=== PATIENT | male | born 1955 | race Caucasian/White ===

== ENCOUNTER 2018-01-28 04:04 | Emergency (ER) | payer MEDICARE, SELFPAY ==
[2018-01-28 04:05] VITALS: BP 144/80; PULSE 77; RESP 18; TEMP 36.5; O2SAT 99; BMI 36.4
--- NOTE | 2018-01-28 04:29 | CT_ITS ---
STUDY: CT ABDOMEN AND PELVIS WITH CONTRAST REASON FOR EXAM: Male, 62 years old. Right lower quadrant pain since 0200 hours. RADIATION DOSAGE (If Supplied By Facility): CTDIvol = ( 18.61 ) mGy, DLP = ( 1159.97 ) mGycm TECHNIQUE: Transaxial images were obtained from the dome of the diaphragm to the symphysis pubis without oral contrast. 100ML ml of Isovue 300 contrast was administered. Sagittal and coronal images were reconstructed. Individualized dose optimization techniques were used for this CT. COMPARISON: CT scan pelvis 06/10/2013. FINDINGS: There is mild atelectasis in the visualized lung bases. The visualized portions of the heart are within normal limits. Normal liver. Normal gallbladder and extrahepatic biliary system. Normal spleen. Normal pancreas. Normal bilateral adrenal glands. There is a 3 mm nonobstructive right renal calculus. There is a 3.1 cm right mid renal cortical cyst. There is no demonstrated ureteral calculus or hydronephrosis. There is a 3 mm nonobstructive left lower pole renal calculus. There is a small left lower pole renal cortical cyst. There is no demonstrated ureteral calculus or hydronephrosis. There is mild chronic bilateral perinephric fat infiltration, a common nonspecific finding, which may be due to previous inflammation. Normal visualized stomach. Normal small intestine. There are a few colonic diverticula consistent with diverticulosis. The appendix is visualized on axial images 71-79 and it appears normal.. Normal abdominal aorta. Normal inferior vena cava. Normal retroperitoneum. Normal urinary bladder. The prostate is mildly enlarged. There is a small umbilical hernia which contains fat, but no bowel. There are multilevel degenerative changes of the visualized lumbar spine. CT/Abdomen/Pelvis W IV Cont ONLY IMPRESSION: Small nonobstructive renal calculi. Small renal cysts. No demonstrated ureteral calculi or hydronephrosis. Mildly enlarged prostate. Mild colonic diverticulosis, without evidence for acute diverticulitis. No evidence for acute pathology. Normal appendix. Electronically Signed: Joss Roberts MD at 5:56 EDT , Service support ,
--- NOTE | 2018-01-28 04:34 | ED.DCSUM_ITS ---
- ER Visit Summary Date of Service: 01/28/18 Chief Complaint: [] Right lower quadrant abdominal pain History of Present Illness: The patient is a 62 M [] complaining of right lower quadrant abdominal pain beginning 2 hours ago that awoke him from sleep. Denies nausea/vomiting. Denies fevers. Does report significant pain with ambulation. Does not report a history of previous pain like this. Does report a previous history of diverticulitis on the opposite side. He reports no previous abdominal surgeries. Physical Examination: [] Afebrile, vital signs stable. 62-year-old male no acute distress. Conversational. Cardiovascular exam is regular rate and rhythm. Lungs are clear to auscultation. Abdomen is soft with right lower quadrant tenderness on exam. No guarding or rebound. No significant lower extremity edema. Test Results: [] CBC, CMP: Normal. CT abdomen/pelvis with IV contrast: Negative. Emergency Department Course and Treatment: [] The patient received intravenous fluids and morphine. On serial exam had improvement of symptoms. Patient counseled regarding diagnostic and laboratory findings. Patient encouraged to follow-up with PCP or GI physician. Treatment Plan: [] Follow-up with PCP. Disposition: [] Discharge, stable. Impression: [] Abdominal pain, unknown etiology This note was generated with [employer] dictation software. It may contain incorrect words, spelling, and punctuation that were not noted in review of the chart prior to signing ED Disposition - Plan for ED Patient: Chief Complaint: Abd Pain Referrals: Gabriel Kay MD [Primary Care Provider] -
[2018-01-28 04:38] LABS: Absolute Neutrophil Count 7.1 X10^3/uL (2.0-7.7); Basophil# 0.01 X10^3/uL; Basophil% 0.1 % (0-1); Eosinophil# 0.14 X10^3/uL; Eosinophils% 1.5 % (0-5); Hematocrit 46.3 % (40-54); Hemoglobin 15.1 g/dl (13.0-16.5); Lymphocyte % 16.9 % (19-41); Mean Corp Hgb Conc 32.6 g/gl (32-36); Mean Corpuscular Hgb 28.8 pg (27.0-32.0); Mean Corpuscular Volume 88.2 fL (80-94); Mean Platelet Vol. 9.8 fl (6.2-12.0); Monocyte% 6.3 % (0-10); Neutrophil # 7.11 X10^3/uL (2.7-7.7); Platelet Count 212 K/mm3 (150-450); RBC Distribution Width CV 14.4 % (11.6-14.6); RBC Distribution Width SD 46.3 fl (35.1-43.9); Red Blood Count 5.25 M/mm3 (4.6-6.2); White Blood Count 9.5 K/mm3 (4.4-11.0)
[2018-01-28] MEDS: 0.9% Normal Saline 1,000 ML 1000 ML IV (04:44)
--- NOTE | 2018-01-28 04:44 | NURSING ---
PT REFUSED MORPHINE BUT WILL KEEP IN HAND IN CASE HE CHANGES HIS MIND.
[2018-01-28 05:01] LABS: ALB/GLOB Ratio 0.8 RATIO (0.9-2.4); AST(SGOT) 18 U/L (15-37); Alanine Aminotransfer ALT/SGPT 34 U/L (16-61); Albumin, Serum 3.4 g/dL (3.2-5.0); Alkaline Phosphatase 77 U/L (45-117); Anion Gap 7 (5-15); BUN 24 mg/dL (7-18); BUN/Creat Ratio 21.8 RATIO (10-20); Calcium,Total 8.8 mg/dL (8.5-10.1); Chloride 106 mmol/L (98-107); EST Glomerular Filtration Rate 72 mL/min (>60); Est Glom Filt Rate - Afr Amer 87 mL/min (>60); Estimated Creatinine Clearance 62.83 ml/min; Globulin 4.1 g/dL (2.2-4.2); Glucose 111 mg/dL (74-106); Potassium 3.7 mmol/L (3.5-5.1); Protein, Total 7.5 g/dL (6.4-8.2); Sodium Level 142 mmol/L (136-145)
[2018-01-28 05:17] LABS: POSITIVE COUNT NO; POSITIVE DIFFERENTIAL NO; POSITIVE MORPHOLOGY NO
[2018-01-28 06:23] VITALS: PULSE 87; RESP 16; O2SAT 97
--- NOTE | 2018-01-28 06:44 | ED.DEP ---
ED Disposition - Plan for ED Patient: Disposition: Home or Assisted Living Chief Complaint: Abd Pain Instructions: ED Abdominal Pain Unkn Cause Referrals: Gabriel Kay MD [Primary Care Provider] -
[2018-01-28 06:52] VITALS: BP 112/74; PULSE 71; RESP 18; O2SAT 95
== END 2018-01-28 06:53 | disposition home or self-care (01) ==
PROVIDERS: Emergency Provider Emergency Medicine; Family Provider Family Medicine; PCP Family Medicine
DX: R10.31 Right lower quadrant pain (principal); E66.9 Obesity, unspecified; G47.33 Obstructive sleep apnea (adult) (pediatric); G25.81 Restless legs syndrome; Z79.899 Other long term (current) drug therapy
CPT/HCPCS: 74177; 80053; 85025; 96360; 96361; 99283; J7030; Q9967; A4216

== ENCOUNTER → 2018-09-18 09:22 | Outpatient (CLI) | payer MEDICARE, SELFPAY ==
[2018-09-18 10:45] LABS: Absolute Lymphocyte Count 1.17 X10^3/ul (0.83-4.51); Absolute Neutrophil Count 3.8 X10^3/uL (2.0-7.7); Basophil# 0.01 X10^3/uL; Basophil% 0.2 % (0-1); Eosinophil# 0.08 X10^3/uL; Eosinophils% 1.5 % (0-5); Hemoglobin 15.4 g/dl (13.0-16.5); Lymphocyte # 1.17 X10^3/ul (4.0); Lymphocyte % 21.6 % (19-41); Mean Corp Hgb Conc 33.5 g/gl (32-36); Mean Corpuscular Hgb 28.7 pg (27.0-32.0); Mean Corpuscular Volume 85.7 fL (80-94); Mean Platelet Vol. 10.5 fl (6.2-12.0); Monocyte% 7.4 % (0-10); Neutrophil # 3.75 X10^3/uL (2.7-7.7); Neutrophil % 69.1 % (47-70); Platelet Count 204 K/mm3 (150-450); RBC Distribution Width SD 47.2 fl (35.1-43.9); Red Blood Count 5.37 M/mm3 (4.6-6.2); White Blood Count 5.4 K/mm3 (4.4-11.0)
[2018-09-18 10:47] LABS: POSITIVE COUNT NO; POSITIVE DIFFERENTIAL NO; POSITIVE MORPHOLOGY NO
[2018-09-18 11:27] LABS: Microalbumin,Random Urine < 5.0 mg/L (NO RANGE EST.)
[2018-09-18 11:36] LABS: ALB/GLOB Ratio 0.9 RATIO (0.9-2.4); AST(SGOT) 17 U/L (15-37); Alanine Aminotransfer ALT/SGPT 44 U/L (16-61); Albumin, Serum 3.5 g/dL (3.2-5.0); Alkaline Phosphatase 77 U/L (45-117); Anion Gap 8 (5-15); BUN 24 mg/dL (7-18); BUN/Creat Ratio 21.8 RATIO (10-20); Calcium,Total 8.4 mg/dL (8.5-10.1); Chloride 109 mmol/L (98-107); EST Glomerular Filtration Rate 72 mL/min (>60); Est Glom Filt Rate - Afr Amer 87 mL/min (>60); Ferritin 112 ng/mL (26-388); Globulin 3.9 g/dL (2.2-4.2); Glucose 98 mg/dL (74-106); Potassium 3.9 mmol/L (3.5-5.1); Protein, Total 7.4 g/dL (6.4-8.2); Sodium Level 143 mmol/L (136-145); Thyroid Stim Hormone (TSH) 1.02 uIU/mL (0.358-3.74)
--- OUTSIDE RECORDS SUMMARY | 2018-11-04 05:32 | XMS RPT_ITS | Clinical Summary ---
:1955 Author Organization [facility], [facility] Address [address] [place] [address] Phone Care Team Providers Name Role Phone Raul Palacios MD Unavailable Conditions or Problems Problem Name Problem Onset Status Entry Provider Comment Standard Annotate Code Date Date Description Abdominal pain 80178889 Active Raul Farmer Abdominal pain (SNOMED 05/24 05/[address]) Myalgia 46740177 Active Raul Farmer Muscle pain (SNOMED 05/24 05/[address]) Pes planus, 96968219 Active Raul Farmer Congenital pes congenital (SNOMED 05/24 05/[address]) De Quervain's 85767784 Active Raul Farmer Radial styloid disease (SNOMED 05/24 05/[address]) Internal 36945637 Active Raul Farmer Internal hemorrhoids, (SNOMED 05/24 05/[address]) complication Carcinoma in 80040944 Active Raul Farmer 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 05/[address]) Esophageal 23124169 Active Raul Farmer Stricture of stricture (SNOMED 05/24 05/[address]) Fibromyalgia 29963321 Active Raul Farmer Fibromyositis (SNOMED 05/24 05/[address]) Meralgia 47583335 Active Raul Farmer Meralgia paresthetica, (SNOMED 05/24 05/[address]) Sleep apnea 59958932 Active Raul Farmer Sleep apnea (SNOMED 05/24 05/[address]) Hypertension 84651517 Active Raul Farmer Hypertensive (SNOMED 05/24 05/[address]) Arthropathy of 096881374 Active Raul Farmer Arthropathy of lumbar facet (SNOMED 05/24 05/[address] [place] [address]) joint Lymphedema 125266494 Active Raul Farmer Lymphedema (SNOMED 05/24 05/[address]) Claustrophobia 97016668 Active Raul Farmer Claustrophobia (SNOMED 05/24 05/[address]) Dysphagia 31339363 Active Raul Farmer Dysphagia (SNOMED 05/24 05/[address]) Diverticulitis 457197231 Active Raul Farmer Diverticulitis (SNOMED 05/24 05/[address]) Cellulitis 949933856 Active Raul Farmer Cellulitis (SNOMED 05/24 05/[address]) Hyperlipidemia 82681794 Active Raul Farmer Hyperlipidemia (SNOMED 05/24 05/[address]) Testicular 27082001 Active Raul Farmer Benign neoplasm mass, benign (SNOMED 05/24 05/[address]) Abdominal wall 343343104 Active Raul Farmer Abdominal wall pain (SNOMED 05/24 05/[address]) Restless leg 66268395 Active Raul Farmer Restless legs syndrome (SNOMED 05/24 05/[address]) Acoustic nerve 27190647 Active Raul Farmer Primary cancer, 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 Low 289667021 Active Raul Farmer Decreased testosterone (SNOMED 05/24 05/[address]) level Raynaud's 991157307 Active Raul Farmer Raynaud's phenomenon (SNOMED 05/24 05/[address]) Swelling of 736454818 Active Raul Farmer Swelling of bilateral legs (SNOMED 05/24 05/[address]) Medications Medication Instructions Start Stop Generic Name NDC Provider Date Date DONNA 227.1 take as / PEG [id number] Raul Farmer GM SOLR directed 17 [id number] Suzanne LOPEZ L-NASULF GABAPENTIN 300 One tablet by / GABAPENTIN 41177783271 Raul Farmer MG CAPS mouth daily 17 Suzanne LOPEZ FUROSEMIDE 40 One tablet by / FUROSEMIDE 85305472428 Raul Farmer MG TABS mouth three 17 Suzanne LOPEZ times daily ANASTROZOLE 1 One tablet by / ANASTROZOLE 92404638463 Raul Farmer MG TABS mouth daily 17 Suzanne LOPEZ POTASSIUM One tablet by / POTASSIUM CHLORIDE 52942531762 Raul Farmer CHLORIDE ER 8 mouth daily 17 Suzanne LOPEZ MEQ CR-TABS [facility] FISH OIL One tablet by / OMEGA-3 FATTY 25438297022 Raul Farmer CAPS mouth daily 17 ACIDS CAPS Suzanne LOPEZ CHELATED One tablet by / MAGNESIUM TABS 90069196308 Raul Farmer MAGNESIUM TABS mouth daily 17 Suzanne LOPEZ L-ARGININE HCL One tablet by / ARGININE HCL 34234151425 Raul Farmer POWD mouth daily 17 Suzanne LOPEZ LYSINE TABS One tablet by / LYSINE TABS 06453167624 Raul Farmer mouth daily 17 Suzanne LOPEZ CHONDROITIN One tablet by / CHONDROITIN 07402528592 Raul Farmer SULFATE CAPS mouth daily 17 SULFATE A TG Palacios MD [facility] GLUCOSAMINE One tablet by / GLUCOSAMINE 38353405315 Raul Farmer SULFATE CAPS mouth daily 17 SULFATE CAPS Suzanne LOPEZ ALPHA-LIPOIC One tablet by / ALPHA-LIPOIC ACID 65398610254 Raul Farmer ACID 100 MG mouth daily 17 Suzanne LOPEZ CAPS B-12 5000 MCG One tablet by / CYANOCOBALAMIN 93255569096 Raul Farmer CAPS mouth daily 17 Suzanne LOPEZ VITAMIN D3 1000 One tablet by / CHOLECALCIFEROL 33153440851 Raul Farmer UNIT CAPS mouth daily 17 Suzanne LOPEZ [facility] PROBIOTIC / PROBIOTIC PRODUCT [id number] Raul Farmer CAPS 17 Suzanne LOPEZ MULTIVITAMIN One tablet by / MULTIPLE 49500418824 Raul Farmer ADULT TABS mouth daily 17 VITAMINS-MINERALS Suzanne LOPEZ Medications Administered No information available. Allergies, Adverse Reactions, Alerts Allergy Name Reaction Description Start Date Severity Status Provider ASPIRIN Moderate Active Raul Palacios MD SULFASALAZINE Mild Active Raul Palacios MD PENICILLIN V POTASSIUM Moderate Active Raul Palacios MD Results Date Name Value Unit Range Flag Description Office Visit FALLRSKASSES No Fall risk assessment MEDS REVIEW Done Documentation of current medications (procedure) COLONOSCOPY Normal Colonoscopy (procedure) ORALTOBACUSE Never Tobacco smoking status NHIS SMOK STATUS Never smoker Tobacco use [facility] Plan of Care Type Date Detail Pending order Colonoscopy Procedures No information available. Vital Signs Date Name Value Unit Description BMI (Body Mass Index) 36.38 kg/m2 Body Mass Index [Ratio] Body Temperature 97.6 [degF] temperature E&M Body Temperature 36.44 Quiana temperature in centigrade E&M BP Diastolic 84 mm[Hg] blood pressure, diastolic - 8462-4 BP Systolic 136 mm[Hg] blood pressure, systolic - 8480-6 Heart Rate 64 /min pulse rate E&M - 8867-4 Height 66 [in_us] height E&M - 8302-2 Height 167.64 cm height in centimeters E&M Respiratory Rate 18 /min respiratory rate E&M - 9279-1 Weight Measured 225.4 [lb_av] weight E&M - 3141-9 Weight Measured 102.24 kg weight in kilograms E&M
--- OUTSIDE RECORDS SUMMARY | 2018-11-04 05:32 | XMS RPT_ITS ---
:1955 Author Organization OHIP Care Team Providers Name Role Phone Gabriel Kay Attending Unavailable Gabriel Kay Primary Care Unavailable Gabriel Kay Primary Care Unavailable Jake Diana Attending Unavailable PROBLEMS PROBLEMS No Problem Records FoundPROCEDURES PROCEDURES No Procedure Records FoundRESULTS RESULTS CBC W/DIFF, AUTOMATED Collected: 09/18/2018 Status: F Source: [place] 9:23 AM REPOSITORY TYPE CODE TESTS RESULT OUT OF RANGE REFERENCE UNITS LAB L100.1000 4.4-11.0 K/mm3 Normal WBC 5.4 LAB L100.1200 4.6-6.2 M/mm3 Normal RBC 5.37 LAB L100.1300 13.0-16.5 g/dl Normal HGB 15.4 LAB L100.1400 40-54 % Normal HCT 46.0 LAB L100.1500 80-94 fL Normal MCV 85.7 LAB L100.1600 27.0-32.0 pg Normal MCH 28.7 LAB L100.1700 32-36 g/gl Normal MCHC 33.5 LAB L100.1810 11.6-14.6 % High RDW CV 15.0 LAB L100.1820 35.1-43.9 fl High RDW SD 47.2 LAB L100.1900 150-450 K/mm3 Normal PLT 204 LAB L100.2000 6.2-12.0 fl Normal MPV 10.5 LAB L100.2100 47-70 % Normal NEUT% 69.1 LAB L100.2200 19-41 % Normal LY% 21.6 LAB L100.2300 0-10 % Normal MONO% 7.4 LAB L100.2400 0-5 % Normal EO% 1.5 LAB L100.2500 0-1 % Normal BASO% 0.2 LAB L100.2550 0.0-0.9 % Normal IM GRAN % 0.200 Result Comment: IG% - Immature Granulocytes (promyelocytes, myelocytes and metamyelocytes) > 1% indicates that a LEFT SHIFT is Present. LAB L100.2620 2.0-7.7 X10 3/uL Normal Absolute Neut 3.8 LAB L100.2720 0.83-4.51 X10 3/ul Normal Absolute Lymph 1.17 Performed By: #### L100.0100 #### [facility] [address] [facility]. [place], [place], [address] MICROALB:CREAT Collected: 09/18/2018 Status: F Source: [facility] UR 9:23 AM REPOSITORY TYPE CODE TESTS RESULT OUT OF RANGE REFERENCE UNITS LAB L501.1200 NO RANGE EST. mg/dL 39.70 Normal UR CREAT LAB L502.0500 NO RANGE EST. mg/L < 5.0 Normal MICROALBUMI N,UR LAB L502.0600 <30 mg/g CRE mg/g CRE Test Normal not performed MALB:CREAT Performed By: #### L502.0250 #### [facility] [address] [facility]. [place], [place], [id number] COMPREHENSIVE METABOLIC Collected: 09/18/2018 Status: F Source: [facility] 9:23 AM REPOSITORY TYPE CODE TESTS RESULT OUT OF RANGE REFERENCE UNITS LAB L501.0100 74-106 mg/dL Normal GLU 98 Result Comment: Please note revised GLUCOSE reference range effective 2017. LAB L501.1000 7-18 mg/dL High BUN 24 LAB L501.1100 0.70-1.30 mg/dL Normal CREAT,SERUM 1.10 Result Comment: The validity of the calculated GFR AND GFRAA in patients over 70 years has not been determined. Clinical correlation is essential. LAB L501.1110 >60 mL/min Normal EST GFR 72 Result Comment: Non- GFR Calc LAB L501.1115 >60 mL/min Normal EST GFR - AA 87 Result Comment: GFR Calc LAB L501.1300 10-20 RATIO High BUN/CRE 21.8 LAB L501.1500 6.4-8.2 g/dL T Normal PROT 7.4 LAB L501.1800 3.2-5.0 g/dL Normal ALB 3.5 LAB L501.1950 2.2-4.2 g/dL Normal GLOB 3.9 LAB L501.2000 0.9-2.4 RATIO Normal A/G 0.9 LAB L501.2200 8.5-10.1 mg/dL Low CA 8.4 LAB L501.4100 15-37 U/L Normal AST 17 LAB L501.4305 45-117 U/L Normal ALK P 77 LAB L501.4405 16-61 U/L Normal ALT 44 LAB L501.4600 0.20-1.00 mg/dL T Normal BILI 0.50 LAB L501.5300 136-145 mmol/L NA Normal 143 LAB L501.5600 3.5-5.1 mmol/L K Normal 3.9 LAB L501.5900 98-107 mmol/L High CL 109 LAB L501.6100 21.0-32.0 mmol/L Normal CO2 26.0 LAB L501.6200 5-15 Normal GAP 8 Performed By: #### L500.4050, L501.9520, L503.6550 #### [facility] [address] [place] [address], [id number] THYROID STIM HORMONE Collected: 09/18/2018 Status: F Source: [place] ([facility]) 9:23 AM REPOSITORY TYPE CODE TESTS RESULT OUT OF RANGE REFERENCE UNITS LAB L501.9520 0.358-3.74 uIU/mL Normal TSH 1.02 Performed By: #### L500.4050, L501.9520, L503.6550 #### [facility] [address] [place], [place], [id number] FERRITIN Collected: 09/18/2018 Status: F Source: [place] 9:23 AM REPOSITORY TYPE CODE TESTS RESULT OUT OF RANGE REFERENCE UNITS LAB L503.6550 26-388 ng/mL Normal FERRITIN 112 Performed By: #### L500.4050, L501.9520, L503.6550 #### [facility] [address] [place], [address] EMERGENCY DEPARTMENT Observed: 01/28/2018 Status: F Source: [place] SUMMARY 7:12 AM REPOSITORY [facility] Medical Records Department [address] [place] [address] Emergency Department Summary 01/28/18 0430 MR#: [id number] Acct: [id number] Name: BALTAZAR GREY Rep #: [id number] : 1955 62 From: Jake Diana DO PCP: Gabriel Kay MD Status: DEP ER - ER Visit Summary Date of Service: 01/28/18 Chief Complaint: [] Right lower quadrant abdominal pain History of Present Illness: The patient is a 62 M [] complaining of right lower quadrant abdominal pain beginning 2 hours ago that awoke him from sleep. Denies nausea/vomiting. Denies fevers. Does report significant pain with ambulation. Does not report a history of previous pain like this. Does report a previous history of diverticulitis on the opposite side. He reports no previous abdominal surgeries. Physical Examination: [] Afebrile, vital signs stable. 62-year-old male no acute distress. Conversational. Cardiovascular exam is regular rate and rhythm. Lungs are clear to auscultation. Abdomen is soft with right lower quadrant tenderness on exam. No guarding or rebound. No significant lower extremity edema. Test Results: [] CBC, CMP: Normal. CT abdomen/pelvis with IV contrast: Negative. Emergency Department Course and Treatment: [] The patient received intravenous fluids and morphine. On serial exam had improvement of symptoms. Patient counseled regarding diagnostic and laboratory findings. Patient encouraged to follow-up with PCP or GI physician. Treatment Plan: [] Follow-up with PCP. Disposition: [] Discharge, stable. Impression: [] Abdominal pain, unknown etiology This note was generated with [employer] software. It may contain incorrect words, spelling, and punctuation that were not noted in review of the chart prior to signing ED Disposition - Plan for ED Patient: Chief Complaint: Abd Pain Referrals: Gabriel Kay MD [Primary Care Provider] - What to do if you have Problems For any increased pain, shortness of breath, bleeding, nausea or vomiting, chest pain, or any unexpected problems, contact your Primary Care Provider. Call [facility] ([phone]) or report to the closest Emergency Room. Call 911 if necessary. 01/28/18 0712 <Electronically signed by Jake Diana DO> Date Jake Diana DO Cosigner Signature (If Indicated): Date CC: Gabriel Kay MD DISCHARGE INSTRUCTION Observed: 01/28/2018 Status: F Source: [place] 6:44 [facility] REPOSITORY [facility] Medical Records Department [address] [place] [address] Discharge Instruction 01/28/1844 MR#: [id number] Acct: [id number] Name: BALTAZAR GREY Rep #: [id number] : 1955 62 From: Jake Diana DO PCP: Gabriel Kay MD Status: REG ER ED Disposition - Plan for ED Patient: Disposition: Home or Assisted Living Chief Complaint: Abd Pain Instructions: ED Abdominal Pain Unkn Cause Referrals: Gabriel Kay MD [Primary Care Provider] - What to do if you have Problems For any increased pain, shortness of breath, bleeding, nausea or vomiting, chest pain, or any unexpected problems, contact your Primary Care Provider. Call [facility] ([phone]) or report to the closest Emergency Room. Call 911 if necessary. 01/28/1844 <Electronically signed by Jake Diana DO> Date Jake Diana DO Cosigner Signature (If Indicated): Date CC: Gabriel Kay MD ABDOMEN/PELVIS W IV CONT Observed: 01/28/2018 Status: F Source: [place] ONLY 4:30 AM REPOSITORY [facility] Imaging Services [address] [address] Abdomen/Pelvis W IV Cont ONLY MR#: [id number] Acct: [id number] Name: BALTAZAR GREY Rep #: [id number] : 1955 M 62 From: Joss Roberts MD PCP: Gabriel Kay MD Status: REG ER Study: Abdomen/Pelvis W IV Cont ONLY Date of Exam: 01/28/18 Exam# [id number] Ordering Dr: Jake Diana DO STUDY: CT ABDOMEN AND PELVIS WITH CONTRAST REASON FOR EXAM: Male, 62 years old. Right lower quadrant pain since 0200 hours. RADIATION DOSAGE (If Supplied By Facility): CTDIvol = ( 18.61 ) mGy, DLP = ( 1159.97 ) mGycm TECHNIQUE: Transaxial images were obtained from the dome of the diaphragm to the symphysis pubis without oral contrast. 100ML ml of Isovue 300 contrast was administered. Sagittal and coronal images were reconstructed. Individualized dose optimization techniques were used for this CT. COMPARISON: CT scan pelvis 06/10/2013. FINDINGS: There is mild atelectasis in the visualized lung bases. The visualized portions of the heart are within normal limits. Normal liver. Normal gallbladder and extrahepatic biliary system. Normal spleen. Normal pancreas. Normal bilateral adrenal glands. There is a 3 mm nonobstructive right renal calculus. There is a 3.1 cm right mid renal cortical cyst. There is no demonstrated ureteral calculus or hydronephrosis. There is a 3 mm nonobstructive left lower pole renal calculus. There is a small left lower pole renal cortical cyst. There is no demonstrated ureteral calculus or hydronephrosis. There is mild chronic bilateral perinephric fat infiltration, a common nonspecific finding, which may be due to previous inflammation. Normal visualized stomach. Normal small intestine. There are a few colonic diverticula consistent with diverticulosis. The appendix is visualized on axial images 71-79 and it appears normal.. Normal abdominal aorta. Normal inferior vena cava. Normal retroperitoneum. Normal urinary bladder. The prostate is mildly enlarged. There is a small umbilical hernia which contains fat, but no bowel. There are multilevel degenerative changes of the visualized lumbar spine. CT/Abdomen/Pelvis W IV Cont ONLY IMPRESSION: Small nonobstructive renal calculi. Small renal cysts. No demonstrated ureteral calculi or hydronephrosis. Mildly enlarged prostate. Mild colonic diverticulosis, without evidence for acute diverticulitis. No evidence for acute pathology. Normal appendix. Electronically Signed: Joss Roberts MD at 5:56 EDT , Service support , CC: Gabriel Kay MD; Jake Diana DO Sharepoint Designer Developer: Signed COMPREHENSIVE METABOLIC Collected: 01/28/2018 Status: F Source: [place] 4:15 AM REPOSITORY TYPE CODE TESTS RESULT OUT OF RANGE REFERENCE UNITS LAB L501.0100 74-106 mg/dL High GLU 111 Result Comment: Fasting Glucose result from 100 to 125 mg/dL suggests IMPAIRED HOMEOSTASIS per A.D.A. criteria. Please note revised GLUCOSE reference range effective 2017. LAB L501.1000 7-18 mg/dL High BUN 24 LAB L501.1100 0.70-1.30 mg/dL Normal CREAT,SERUM 1.10 Result Comment: The validity of the calculated GFR AND GFRAA in patients over 70 years has not been determined. Clinical correlation is essential. LAB L501.1110 >60 mL/min Normal EST GFR 72 Result Comment: Non- GFR Calc LAB L501.1115 >60 mL/min Normal EST GFR - AA 87 Result Comment: GFR Calc LAB L501.1255 ml/min Normal Estimated CRCL 62.83 LAB L501.1300 10-20 RATIO High BUN/CRE 21.8 LAB L501.1500 6.4-8. g/dL Normal 2 T PROT 7.5 LAB L501.1800 3.2-5. g/dL Normal 0 ALB 3.4 LAB L501.1950 2.2-4. g/dL Normal 2 GLOB 4.1 LAB L501.2000 0.9-2. RATIO Low 4 A/G 0.8 LAB L501.2200 8.5-10 mg/dL Normal .1 CA 8.8 LAB L501.4100 15-37 U/L Normal AST 18 LAB L501.4305 45-117 U/L Normal ALK P 77 LAB L501.4405 16-61 U/L Normal ALT 34 LAB L501.4600 0.20-1 mg/dL Normal .00 T BILI 0.40 LAB L501.5300 136-14 mmol/L Normal 5 NA 142 LAB L501.5600 3.5-5. mmol/L Normal 1 K 3.7 LAB L501.5900 98-107 mmol/L Normal CL 106 LAB L501.6100 21.0-3 mmol/L Normal 2.0 CO2 29.0 LAB L501.6200 5-15 Normal GAP 7 Performed By: #### L500.4050 #### [facility] [address] [facility] [place], [place], [id number] CBC W/DIFF, AUTOMATED Collected: 01/28/2018 Status: F Source: [place] 4:15 AM REPOSITORY TYPE CODE TESTS RESULT OUT OF RANGE REFERENCE UNITS LAB L100.1000 4.4-11.0 K/mm3 Normal WBC 9.5 LAB L100.1200 4.6-6.2 M/mm3 Normal RBC 5.25 LAB L100.1300 13.0-16.5 g/dl Normal HGB 15.1 LAB L100.1400 40-54 % Normal HCT 46.3 LAB L100.1500 80-94 fL Normal MCV 88.2 LAB L100.1600 27.0-32.0 pg Normal MCH 28.8 LAB L100.1700 32-36 g/gl Normal MCHC 32.6 LAB L100.1810 11.6-14.6 % Normal RDW CV 14.4 LAB L100.1820 35.1-43.9 fl High RDW SD 46.3 LAB L100.1900 150-450 K/mm3 Normal PLT 212 LAB L100.2000 6.2-12.0 fl Normal MPV 9.8 LAB L100.2100 47-70 % High NEUT% 75.0 LAB L100.2200 19-41 % Low LY% 16.9 LAB L100.2300 0-10 % Normal MONO% 6.3 LAB L100.2400 0-5 % Normal EO% 1.5 LAB L100.2500 0-1 % Normal BASO% 0.1 LAB L100.2550 0.0-0.9 % Normal IM GRAN % 0.200 Result Comment: IG% - Immature Granulocytes (promyelocytes, myelocytes and metamyelocytes) > 1% indicates that a LEFT SHIFT is Present. LAB L100.2620 2.0-7.7 X10 3/uL Normal Absolute Neut 7.1 LAB L100.2720 0.83-4.51 X10 3/ul Normal Absolute Lymph 1.60 Performed By: #### L100.0100 #### [facility] [address] [place], [place], [address] ALLERGIES ALLERGIES DATE TYPE / CODE NAME / CODE REACTION SEVERITY SOURCE 01/28/2018 Drug Penicillins/F Unknown Unknown [facility] Allergy/4160 [id number](RXN Hospital 36074(SNOMED ORM) Repository CT) 01/28/2018 Drug Sulfa MIGRAINES Unknown [facility] Allergy/4160 (Sulfonamide Hospital 67645(SNOMED Antibiotics)/ Repository CT) [id number](RX NORM) 01/28/2018 Drug aspirin/F0060 Hives Unknown [facility] Allergy/4160 73571(RXNORM) Hospital 99810(SNOMED Repository CT) ENCOUNTERS ENCOUNTERS ADMIT/DISCHARGE ACCOUNT ADMITTING ENCOUNTER LOCATION SOURCE NUMBER CLASS 09/18/2018 [id number] Ambulatory [facility] 2 [facility] ing:MFPLAB Repository 01/28/2018/ [id number] Emergency [facility] 8 0 [facility] ing:ED Repository PAYERS PAYERS ENCOUNTER GUARANTOR PAYER SUBSCRIBER SOURCE 09/18/2018 BALTAZAR Alejandre [id number] HOZALMAECDOB: [facility] [place] *[place] [facility] [id number] Number: Repository [address]Kvq: 330 [id number] [phone] (HP) Date:[id number] CLAIMS [address] [place] [phone]: 09/18/2018 Secondary NOT GIVENUNK [place] Insurance:SELF PAY [facility] Number: Effective Repository Date:2018-09-18 01/28/2018 BALTAZAR Alejandre Primary BALTAZAR Lawson [id number] Insurance:[facility] HOVANECDOB: Community [place] *IN [facility] [id number] Number: Repository [address]Yad: [id number] [phone] Date:[id number] 2 (HP) CLAIMS [address] [address]KQ: 01/28/2018 Secondary NOT GIVENUNK [place] Insurance:SELF PAY [facility] Number: Effective Repository Date:2018-01-28
--- OUTSIDE RECORDS SUMMARY | 2018-11-04 05:32 | XMS RPT_ITS | Clinical Summary ---
:1955 Author Organization [facility], [facility] Address [address] [place] [address] Phone Care Team Providers Name Role Phone Maura Linn Unavailable Unavailable Conditions or Problems Problem Name Problem Onset Status Entry Provider Comment Standard Annotate Code Date Date Description Abdominal pain 57381007 Active Raul Farmer Abdominal pain (SNOMED 05/24 05/[address]) Myalgia 39993837 Active Raul Farmer Muscle pain (SNOMED 05/24 05/[address] [place] [address]) Pes planus, 23287667 Active Raul Farmer Congenital pes congenital (SNOMED 05/24 05/[address]) De Quervain's 20728432 Active Raul Farmer Radial styloid disease (SNOMED 05/24 05/[address] [place] [address]) Internal 77685499 Active Raul Farmer Internal hemorrhoids, (SNOMED 05/24 05/[address]) complication Carcinoma in 46307422 Active Raul Farmer 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 05/24 [place] situ of larynx CT) Esophageal 65943447 Active Raul Farmer Stricture of stricture (SNOMED 05/24 05/[address]) Fibromyalgia 17013318 Active Raul Farmer Fibromyositis (SNOMED 05/24 05/[address]) Meralgia 15727386 Active Raul Farmer Meralgia paresthetica, (SNOMED 05/24 05/24 [place] paresthetica left CT) Sleep apnea 61612924 Active Raul Farmer Sleep apnea (SNOMED 05/24 05/[address]) Hypertension 99148016 Active Raul Farmer Hypertensive (SNOMED 05/24 05/[address]) Arthropathy of 159923943 Active Raul Farmer Arthropathy of lumbar facet (SNOMED 05/24 05/[address] [place] [address]) joint Lymphedema 009605911 Active Raul Farmer Lymphedema (SNOMED 05/24 05/[address] [place] [address]) Claustrophobia 47312470 Active Raul Farmer Claustrophobia (SNOMED 05/24 05/[address] [place] [address]) Dysphagia 42301220 Active Raul Farmer Dysphagia (SNOMED 05/24 05/[address] [place] [address]) Diverticulitis 220770289 Active Raul Farmer Diverticulitis (SNOMED 05/24 05/[address]) Cellulitis 872442073 Active Raul Farmer Cellulitis (SNOMED 05/24 05/[address]) Hyperlipidemia 34883736 Active Raul Farmer Hyperlipidemia (SNOMED 05/24 05/[address]) Testicular 56257101 Active Raul Farmer Benign neoplasm mass, benign (SNOMED 05/24 05/24 [place] [address] testis [address]) Abdominal wall 268880593 Active Raul Farmer Abdominal wall pain (SNOMED 05/24 05/[address]) Restless leg 21700620 Active Raul Farmer Restless legs syndrome (SNOMED 05/24 05/[address] [place] [address]) Acoustic nerve 76920325 Active Raul Farmer Primary cancer, 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 Low 589101284 Active Raul Farmer Decreased testosterone (SNOMED 05/24 05/[address]) level Raynaud's 923972200 Active Raul P Raynaud's phenomenon (SNOMED 05/24 05/[address] [place] [address]) Swelling of 287408043 Active Raul Farmer Swelling of bilateral legs (SNOMED 05/24 05/[address] [place] [address]) Medications Medication Instructions Start Stop Generic Name NDC Provider Date Date DONNA 227.1 take as / PEG [id number] Raul Farmer GM SOLR directed 17 [id number]-[id number]-YKPCL-NAC Suzanne LOPEZ L-NASULF GABAPENTIN 300 One tablet by / GABAPENTIN 67055472736 Raul Farmer MG CAPS mouth daily 17 Suzanne LOPEZ FUROSEMIDE 40 One tablet by / FUROSEMIDE 60865054555 Raul Farmer MG TABS mouth three 17 Suzanne LOPEZ times daily ANASTROZOLE 1 One tablet by / ANASTROZOLE 82138198680 Raul Farmer MG TABS mouth daily 17 Suzanne LOPEZ POTASSIUM One tablet by / POTASSIUM CHLORIDE 43468857887 Raul Farmer CHLORIDE ER 8 mouth daily 17 Suzanne LOPEZ MEQ CR-TABS [facility] FISH OIL One tablet by / OMEGA-3 FATTY 20955544372 Raul Farmer CAPS mouth daily 17 ACIDS CAPS Suzanne LOPEZ CHELATED One tablet by / MAGNESIUM TABS 82693548380 Raul Farmer MAGNESIUM TABS mouth daily 17 Suzanne LOPEZ L-ARGININE HCL One tablet by / ARGININE HCL 82413840173 Raul Faremr POWD mouth daily 17 Suzanne LOPEZ LYSINE TABS One tablet by / LYSINE TABS 91462015052 Raul Farmer mouth daily 17 Suzanne LOPEZ CHONDROITIN One tablet by / CHONDROITIN 68993225897 Raul Farmer SULFATE CAPS mouth daily 17 SULFATE A TG [place] MD [facility] GLUCOSAMINE One tablet by / GLUCOSAMINE 67765678530 Raul Farmer SULFATE CAPS mouth daily 17 SULFATE CAPS Suzanne LOPEZ ALPHA-LIPOIC One tablet by / ALPHA-LIPOIC ACID 47177225969 Raul Farmer ACID 100 MG mouth daily 17 Suzanne LOPEZ CAPS B-12 5000 MCG One tablet by / CYANOCOBALAMIN 60905129013 Raul Farmer CAPS mouth daily 17 Suzanne LOPEZ VITAMIN D3 1000 One tablet by / CHOLECALCIFEROL 28441220163 Ralu Farmer UNIT CAPS mouth daily 17 Suzanne LOPEZ [facility] PROBIOTIC / PROBIOTIC PRODUCT 85991145382 Raul Farmer CAPS 17 Suzanne LOPEZ MULTIVITAMIN One tablet by / MULTIPLE 24222833748 Raul Farmer ADULT TABS mouth daily 17 [...] NHIS SMOK STATUS Never smoker Tobacco use [facility] Plan of Care Type Date Detail Appointment 10:00 AM Raul Palacios MD, [address] [place] [address], [address], [place], [address], Pending order Colonoscopy Procedures No information available. [...]
== END ==
PROVIDERS: Family Provider Family Medicine; PCP Family Medicine; Visit Provider Family Medicine
DX: M79.89 Other specified soft tissue disorders (principal); G25.81 Restless legs syndrome
CPT/HCPCS: 36415; 80053; 82043; 82570; 82728; 84443; 85025

== ENCOUNTER → 2019-05-29 | Outpatient (CLI) | payer MEDICARE, SELFPAY ==
[2019-05-29 18:16] LABS: Anion Gap 7 (5-15); BUN 20 mg/dL (7-18); BUN/Creat Ratio 17.4 RATIO (10-20); Chloride 105 mmol/L (98-107); Creatinine, Serum 1.15 mg/dL (0.70-1.30); EST Glomerular Filtration Rate 68 mL/min (>60); Est Glom Filt Rate - Afr Amer 83 mL/min (>60); Glucose 86 mg/dL (74-106); Magnesium 2.3 mg/dL (1.6-2.6); Sodium Level 140 mmol/L (136-145)
== END | disposition home or self-care (01) ==
LOC: MFPLAB 16:41
PROVIDERS: Family Provider Family Medicine; PCP Family Medicine; Referring Provider Family Medicine; Visit Provider Family Medicine
DX: M79.89 Other specified soft tissue disorders (principal)
CPT/HCPCS: 36415; 80048; 83735

== ENCOUNTER → 2019-12-03 10:39 | Outpatient (CLI) | payer OTHER, SELFPAY ==
[2019-12-03 12:20] LABS: Absolute Neutrophil Count 3.3 X10^3/uL (2.0-7.7); Basophil# 0.03 X10^3/uL; Basophil% 0.6 % (0-1); Eosinophil# 0.16 X10^3/uL; Eosinophils% 3.1 % (0-5); Hematocrit 46.3 % (40-54); Hemoglobin 14.6 g/dL (13.0-16.5); Lymphocyte % 25.2 % (19-41); Mean Corp Hgb Conc 31.5 g/dL (32-36); Mean Corpuscular Hgb 27.3 pg (27.0-32.0); Mean Corpuscular Volume 86.7 fL (80-94); Mean Platelet Vol. 10.4 fl (6.2-12.0); Monocyte# 0.38 X10^3/uL; Monocyte% 7.4 % (0-10); NRBC Flagged by Analyzer 0 % (0-5); Neutrophil # 3.28 X10^3/uL (2.7-7.7); Neutrophil % 63.5 % (47-70); Platelet Count 218 K/mm3 (150-450); RBC Distribution Width CV 15.4 % (11.6-14.6); Red Blood Count 5.34 M/mm3 (4.6-6.2); White Blood Count 5.2 K/mm3 (4.4-11.0)
[2019-12-03 13:09] LABS: ALB/GLOB Ratio 0.8 RATIO (0.9-2.4); AST(SGOT) 19 U/L (15-37); Alanine Aminotransfer ALT/SGPT 45 U/L (16-61); Albumin, Serum 3.3 g/dL (3.2-5.0); Alkaline Phosphatase 71 U/L (45-117); Anion Gap 3 (5-15); BUN 23 mg/dL (7-18); BUN/Creat Ratio 20.7 RATIO (10-20); Chloride 113 mmol/L (98-107); Cholesterol 200 mg/dL (200); Creatinine, Serum 1.11 mg/dL (0.70-1.30); EST Glomerular Filtration Rate 71 mL/min (>60); Est Glom Filt Rate - Afr Amer 86 mL/min (>60); Ferritin 99 ng/mL (26-388); Globulin 4.2 g/dL (2.2-4.2); Glucose 90 mg/dL (74-106); High Density Lipoprotein 52 mg/dL; Magnesium 2.6 mg/dL (1.6-2.6); PSA,Total- Diagnostic 2.34 ng/mL (0.0-4.0); Potassium 4.2 mmol/L (3.5-5.1); Protein, Total 7.5 g/dL (6.4-8.2); Sodium Level 143 mmol/L (136-145); Triglycerides 126 mg/dL; Very Low Density Lipoprotein 25 mg/dL (5-40)
== END ==
PROVIDERS: PCP Family Medicine; Referring Provider Family Medicine; Visit Provider Family Medicine
DX: Z00.00 Encounter for general adult medical examination without abnormal findings (principal); G25.81 Restless legs syndrome; R97.20 Elevated prostate specific antigen [PSA]; E66.1 Drug-induced obesity
CPT/HCPCS: 36415; 80053; 80061; 82728; 83735; 84153; 85025

== ENCOUNTER → 2020-05-31 14:02 | Outpatient (CLI) | payer OTHER, SELFPAY ==
[2020-05-31 16:00] LABS: Absolute Neutrophil Count 3.9 X10^3/uL (2.0-7.7); Basophil# 0.03 X10^3/uL; Basophil% 0.5 % (0-1); Eosinophil# 0.12 X10^3/uL; Eosinophils% 1.9 % (0-5); Hematocrit 45.9 % (40-54); Hemoglobin 14.4 g/dL (13.0-16.5); Lymphocyte % 24.4 % (19-41); Mean Corp Hgb Conc 31.4 g/dL (32-36); Mean Corpuscular Hgb 27.2 pg (27.0-32.0); Mean Corpuscular Volume 86.6 fL (80-94); Mean Platelet Vol. 10.7 fl (6.2-12.0); Monocyte# 0.55 X10^3/uL; Monocyte% 8.9 % (0-10); NRBC Flagged by Analyzer 0 % (0-5); Neutrophil # 3.92 X10^3/uL (2.7-7.7); Neutrophil % 63.7 % (47-70); Platelet Count 242 K/mm3 (150-450); RBC Distribution Width SD 47.8 fl (35.1-43.9); White Blood Count 6.2 K/mm3 (4.4-11.0)
[2020-05-31 16:28] LABS: ALB/GLOB Ratio 0.8 RATIO (0.9-2.4); AST(SGOT) 14 U/L (15-37); Alanine Aminotransfer ALT/SGPT 34 U/L (16-61); Albumin, Serum 3.4 g/dL (3.2-5.0); Alkaline Phosphatase 70 U/L (45-117); Anion Gap 4 (5-15); BUN 19 mg/dL (7-18); BUN/Creat Ratio 17.3 RATIO (10-20); Calcium,Total 8.9 mg/dL (8.5-10.1); Chloride 109 mmol/L (98-107); EST Glomerular Filtration Rate 72 mL/min (>60); Est Glom Filt Rate - Afr Amer 87 mL/min (>60); Globulin 4.2 g/dL (2.2-4.2); Glucose 100 mg/dL (74-106); Magnesium 2.4 mg/dL (1.6-2.6); Potassium 3.8 mmol/L (3.5-5.1); Protein, Total 7.6 g/dL (6.4-8.2); Sodium Level 141 mmol/L (136-145)
== END ==
PROVIDERS: PCP Family Medicine; Referring Provider Family Medicine; Visit Provider Family Medicine
DX: G25.81 Restless legs syndrome (principal); M79.89 Other specified soft tissue disorders
CPT/HCPCS: 36415; 80053; 83735; 85025

== ENCOUNTER → 2020-08-02 14:10 | Outpatient (CLI) | payer OTHER, SELFPAY ==
--- NOTE | 2020-08-02 14:13 | CT_ITS ---
STUDY: CT MAXILLOFACIAL SINUSES REASON FOR EXAM: Male, 64 years old. SINUSITIS, HEADACHES X2 MONTHS -- HX-ACOUSTIC SCHWANNOMA RIGHT INTERNAL AUDITORY CANAL RADIATION DOSAGE (If Supplied By Facility): CTDIvol = ( 33.45 ) mGy, DLP = ( 805.64 ) mGycm TECHNIQUE: The patient was scanned in a multi detector CT scanner. High resolution axial imaging was performed without the administration of intravenous contrast material. Sagittal and coronal images were reconstructed. Individualized dose optimization techniques were used for this CT. COMPARISON: None. FINDINGS: Status post right temporal resection for right acoustic schwannoma. FRONTAL SINUSES: Normal aeration, without mucosal inflammatory disease. ETHMOIDAL SINUSES: Mucosal thickening of the ethmoid sinuses bilaterally. MAXILLARY SINUSES: Normal aeration, without mucosal inflammatory disease. SPHENOIDAL SINUSES: Mucosal thickening of the sphenoid sinus is worse on the left side. There is patency of the bilateral maxillary infundibuli with normal uncinate processes, ethmoid bullae, and hiatus semilunaris. Normal bilateral middle turbinates. There is hypertrophy of the right inferior nasal turbinate. There is a left sided nasal septal deviation with a left sided nasal septal spur. There is patency of the bilateral nasal airways. The visualized osseous structures are normal. The visualized bilateral orbital contents are normal. CT/Sinus/Facial Bone IMPRESSION: Mucosal thickening of the ethmoid sinuses bilaterally as well as the sphenoid sinuses. Status post resection of a right-sided schwannoma of the right internal auditory canal.. Electronically Signed: Unruly Last, at 15:40 EDT , Service support ,
== END ==
PROVIDERS: PCP Family Medicine; Referring Provider Family Medicine; Visit Provider Family Medicine
DX: J30.9 Allergic rhinitis, unspecified (principal)
CPT/HCPCS: 70486

== ENCOUNTER → 2020-09-04 11:40 | Outpatient (CLI) | payer OTHER, SELFPAY | PROVIDERS: PCP Family Medicine; Referring Provider Family Medicine; Visit Provider Family Medicine | DX: R19.7 Diarrhea, unspecified (principal) | CPT/HCPCS: 83986; 87493; 87506 ==

== ENCOUNTER 2020-12-21 17:03 | Outpatient (RCR) | payer MEDICARE, OTHER, SELFPAY ==
[2020-12-21] MEDS: COVID-19 VACC, MRNA(PFIZER)/PF 30 MCG/0.3 ML SYRINGE IM (08:33)
[2021-01-11] MEDS: COVID-19 VACC, MRNA(PFIZER)/PF 30 MCG/0.3 ML SYRINGE IM (08:31)
== END 2021-03-15 23:59 ==
LOC: IMMUN 17:03
PROVIDERS: PCP Family Medicine; Referring Provider Family Medicine; Visit Provider Family Medicine
DX: Z23 Encounter for immunization (principal)
CPT/HCPCS: 0001A; 0002A; 91300

== ENCOUNTER → 2021-01-31 15:38 | Outpatient (CLI) | payer MEDICARE, OTHER, SELFPAY ==
--- NOTE | 2021-01-31 15:44 | RAD_ITS ---
STUDY: X-RAY - LUMBAR SPINE REASON FOR EXAM: Male, 65 years old. SACROILIAC DYSFUNCTION TECHNIQUE: 5 view(s) of the lumbar spine were obtained. COMPARISON: None FINDINGS: There is straightening of the normal lumbar lordosis. There is multilevel endplate spondylosis of the lumbar vertebrae. There is multi-level degenerative disc disease with multi-level disc space narrowing. The soft tissue structures are unremarkable. RAD/L/S Spine Min 4 Views IMPRESSION: Degenerative changes of the spine. Electronically Signed: Ana Michaud MD at 9:03 EDT Tel , Service support ,
== END ==
PROVIDERS: PCP Family Medicine; Referring Provider Family Medicine; Visit Provider Family Medicine
DX: M53.3 Sacrococcygeal disorders, not elsewhere classified (principal)
CPT/HCPCS: 72110

== ENCOUNTER → 2021-02-01 09:34 | Outpatient (CLI) | payer MEDICARE, OTHER, SELFPAY ==
[2021-02-01 13:07] LABS: ALB/GLOB Ratio 0.7 RATIO (0.9-2.4); AST(SGOT) 20 U/L (15-37); Alanine Aminotransfer ALT/SGPT 49 U/L (16-61); Albumin, Serum 3.2 g/dL (3.2-5.0); Alkaline Phosphatase 75 U/L (45-117); Anion Gap 5 (5-15); BUN 22 mg/dL (7-18); BUN/Creat Ratio 19.3 RATIO (10-20); Chloride 108 mmol/L (98-107); Cholesterol 206 mg/dL (200); Creatinine, Serum 1.14 mg/dL (0.70-1.30); EST Glomerular Filtration Rate 69 mL/min (>60); Est Glom Filt Rate - Afr Amer 83 mL/min (>60); Globulin 4.5 g/dL (2.2-4.2); Glucose 107 mg/dL (74-106); High Density Lipoprotein 51 mg/dL; PSA,Total- Diagnostic 2.84 ng/mL (0.0-4.0); Protein, Total 7.7 g/dL (6.4-8.2); Sodium Level 139 mmol/L (136-145); Triglycerides 143 mg/dL; Very Low Density Lipoprotein 29 mg/dL (5-40)
[2021-02-01 13:41] LABS: Hepatitis C Antibody Non-Reactive (Nonreactive)
== END ==
PROVIDERS: PCP Family Medicine; Referring Provider Family Medicine; Visit Provider Family Medicine
DX: E66.01 Morbid (severe) obesity due to excess calories (principal); R97.20 Elevated prostate specific antigen [PSA]; Z11.59 Encounter for screening for other viral diseases
CPT/HCPCS: 36415; 80053; 80061; 84153; 86803

== ENCOUNTER 2021-08-19 15:00 | Outpatient (RCR) | payer MEDICARE, OTHER, SELFPAY ==
--- NOTE | 2021-08-15 13:51 | HP.PTEVAL_ITS ---
Patient's Visit Information BALTAZAR GREY is a 65 year old M referred to Physical Therapy by Dr. Gabriel Kay MD with a diagnosis of SI dysfunction. Date of Evaluation: 08/15/21 Physical Therapist: Nida Guevara - Visit Plan Frequency: 2x /Week Duration: 4 Weeks Plan: Stretching of HS, piriformis, hip flexors. Progressive core strengthening exercises for increased pelvic/lumbar stability. - Subjective Pt moved in Nov 2019 and noticed right low back pain after lifting heavy box. Pain persisted for 2-3 months then seemed to get better. Recently though, he has noticed with lifting or increased activity it gives him trouble again. Sleeping is difficult (wakes every 1-2 hrs to reposition), as he cannot find a comfortable position. Pt usually sleeps on the left side. Pt has support belt that he uses when walking that he says helps. Pt reports driving does not bother him. The transitions from sit to stand or walking on uneven terrain (up or down hill), is when he notices the pain. Pt has a history of DDD and arthritis. Pt also has restless leg syndrome, for which he takes gabapentin. Reports that for several years, after standing in place for a long time, he notices stabbing pain/N&T on top of L thigh. Denies N&T otherwise. Pain: currently, 1/10 (sitting), reports pain gets to 0/10 in sitting(works sitting at a computer. At worst, pain is 5-6/10, lifting, bending/twisting, carrying something in front of him. - Pain R PSIS Pain Intensity (Out of 10): 1 Pain Intensity Range: 0, 6 - Objective ROM: Trunk: Forward flexion limited by HS length, minimal extension with pain at end range, R>L sidebend (painful L SB), L=R rotation (pain at EROM B). LEs: SLR ~45 degrees B (restricted by HS tightness), pain over R PSIS with PROM R hip, otherwise WNL. MMT: LLE: grossly 5/5. RLE: hip flexion/abd 4/5, knee f/e 5/5, poor core strength. GAIT: Normal pattern, no discrepancy noted. No leg length discrepancy, Tenderness to palpation over R PSIS, no pain with sacral distraction, pain with sacral compression (tested in supine over ASIS), pain with attempted bridging. - Balance/Special Test Scores Oswestry Low Back Score: 12 - Goals Goal 1:: Pt to be I with HEP Goal Time Frame: 2-4 Weeks Goal 2:: Pt to report being able to sleep at least 4 hrs without waking due to pain. Goal Time Frame: 4-6 Weeks Goal 3:: Pt to improve SLR by at least 15 degrees bilaterally to allow for greater ROM of hip flexion Goal Time Frame: 4-6 Weeks Goal 4:: Pt to be able to ambulate at least one mile with gentle incline/decline without SIJ pain. Goal Time Frame: 4-6 Weeks - Rehabilitation Potential Physical Therapy Diagnosis: Pt presents with s/s consistent with SI dysfunction. Limited ROM, strength, and activity tolerance leads to decreased participation in ADLs. Pt would benefit from skilled physical therapy to increase stabilizatio n of SIJ. Rehabilitation Potential: Good - Anticipated Interventions Patient/Client Instruction: Educate patient on: Condition, Plan of Care Therapeutic Exercise to Include: Strength training, Endurance training, Body mechanics, Postural training, Flexibilty training, Dynamic Lumbar Stabilization For the Purpose of:: To decrease pain, To increase ROM, To increase tolerance to activity/condition/position, To improve ability of physical actions for home/community/work/leisure, To decrease soft tissue restriction, To increase flexibility/ROM Thank you for the opportunity to evaluate your patient. For Medicare and Medicare HMO plans, please review the plan of care and approve it. It will need to be FAXED BACK to us at [phone] for Medicare purposes. For Medicare only, by signing this I certify the plan of care. Please let me know if there are questions or concerns regarding this plan of care. Physician Signature: Date:
== END 2021-08-19 19:00 | disposition home or self-care (01) ==
LOC: PT 15:00
PROVIDERS: PCP Family Medicine; Referring Provider Family Medicine; Visit Provider Family Medicine
DX: M53.3 Sacrococcygeal disorders, not elsewhere classified (principal)
CPT/HCPCS: 97110; 97161

== ENCOUNTER 2021-11-15 09:12 | Outpatient (CLI) | payer MEDICARE, OTHER, SELFPAY ==
[2021-11-15 10:11] LABS: Absolute Lymphocyte Count 1.41 X10^3/uL (0.83-4.51); Absolute Neutrophil Count 3.4 X10^3/uL (2.0-7.7); Basophil# 0.03 X10^3/uL; Basophil% 0.6 % (0-1); Eosinophil# 0.11 X10^3/uL; Hematocrit 45.2 % (40-54); Hemoglobin 14.5 g/dL (13.0-16.5); Lymphocyte # 1.41 X10^3/ul (0.83-4.51); Mean Corp Hgb Conc 32.1 g/dL (32-36); Mean Corpuscular Hgb 27.5 pg (27.0-32.0); Mean Corpuscular Volume 85.8 fL (80-94); Monocyte# 0.45 X10^3/uL; Monocyte% 8.3 % (0-10); NRBC Flagged by Analyzer 0 % (0-5); Neutrophil % 62.7 % (47-70); Platelet Count 225 K/mm3 (150-450); RBC Distribution Width CV 15.6 % (11.6-14.6); Red Blood Count 5.27 M/mm3 (4.6-6.2); White Blood Count 5.4 K/mm3 (4.4-11.0)
[2021-11-15 10:50] LABS: BUN 21 mg/dL (7-18); Creatinine, Serum 1.09 mg/dL (0.70-1.30); EST Glomerular Filtration Rate 72 mL/min (>60); Glucose 107 mg/dL (74-106)
[2021-11-15 10:51] LABS: ALB/GLOB Ratio 0.8 RATIO (0.9-2.4); AST(SGOT) 23 U/L (15-37); Alanine Aminotransfer ALT/SGPT 55 U/L (16-61); Albumin, Serum 3.4 g/dL (3.2-5.0); Alkaline Phosphatase 81 U/L (45-117); Anion Gap 9 (5-15); BUN/Creat Ratio 19.3 RATIO (10-20); Calcium,Total 8.7 mg/dL (8.5-10.1); Chloride 108 mmol/L (98-107); Est Glom Filt Rate - Afr Amer 87 mL/min (>60); Ferritin 137 ng/mL (26-388); Globulin 4.2 g/dL (2.2-4.2); Potassium 4.2 mmol/L (3.5-5.1); Protein, Total 7.6 g/dL (6.4-8.2); Sodium Level 141 mmol/L (136-145)
[2021-11-16 13:19] LABS: MG Sendout 2.7 mg/dL (1.6-2.3)
== END 2021-11-15 23:59 | disposition home or self-care (01) ==
LOC: MFPLAB 09:16
PROVIDERS: PCP Family Medicine; Referring Provider Family Medicine; Visit Provider Family Medicine
DX: R51.9 Headache, unspecified (principal); G25.81 Restless legs syndrome; D64.9 Anemia, unspecified
CPT/HCPCS: 36415; 80053; 82728; 83735; 85025

== ENCOUNTER → 2023-02-07 | Outpatient (CLI) | payer MEDICARE, OTHER, SELFPAY ==
[2023-02-07 12:45] LABS: ALB/GLOB Ratio 0.7 RATIO (0.9-2.4); AST(SGOT) 22 U/L (15-37); Alanine Aminotransfer ALT/SGPT 43 U/L (16-61); Albumin, Serum 3.2 g/dL (3.2-5.0); Alkaline Phosphatase 81 U/L (45-117); Anion Gap 6 (5-15); BUN 23 mg/dL (7-18); BUN/Creat Ratio 19.8 RATIO (10-20); Calcium,Total 9.2 mg/dL (8.5-10.1); Chloride 108 mmol/L (98-107); Creatinine, Serum 1.16 mg/dL (0.70-1.30); EST Glomerular Filtration Rate 67 mL/min (>60); Est Glom Filt Rate - Afr Amer 81 mL/min (>60); Globulin 4.5 g/dL (2.2-4.2); Glucose 101 mg/dL (74-106); Magnesium 2.4 mg/dL (1.6-2.6); Potassium 3.9 mmol/L (3.5-5.1); Protein, Total 7.7 g/dL (6.4-8.2); Sodium Level 141 mmol/L (136-145)
[2023-02-09 16:41] LABS: CRP 9.13 mg/L (0.0-3.0)
[2023-03-12 15:41] LABS: Anion Gap 1 (5-15); BUN 28 mg/dL (7-18); BUN/Creat Ratio 21.9 RATIO (10-20); Calcium,Total 9.5 mg/dL (8.5-10.1); Chloride 99 mmol/L (98-107); Creatinine, Serum 1.28 mg/dL (0.70-1.30); EST Glomerular Filtration Rate 60 mL/min (>60); Est Glom Filt Rate - Afr Amer 72 mL/min (>60); Glucose 126 mg/dL (74-106); Sodium Level 134 mmol/L (136-145)
== END | disposition home or self-care (01) ==
LOC: MFPLAB 11:18
PROVIDERS: PCP Family Medicine; Visit Provider Family Medicine
DX: K57.92 Diverticulitis of intestine, part unspecified, without perforation or abscess without bleeding (principal); E87.6 Hypokalemia
CPT/HCPCS: 36415; 80048; 80053; 83735; 86140

== ENCOUNTER → 2023-02-23 | Outpatient (CLI) | payer MEDICARE, OTHER, SELFPAY ==
[2023-02-23 18:33] LABS: Osmolality, Serum 298 mOsm/KG (280-301)
[2023-02-23 18:47] LABS: ALB/GLOB Ratio 0.7 RATIO (0.9-2.4); AST(SGOT) 28 U/L (15-37); Alanine Aminotransfer ALT/SGPT 45 U/L (16-61); Albumin, Serum 3.4 g/dL (3.2-5.0); Alkaline Phosphatase 81 U/L (45-117); Anion Gap 6 (5-15); BUN 29 mg/dL (7-18); Calcium,Total 9.7 mg/dL (8.5-10.1); Chloride 98 mmol/L (98-107); Creatinine, Serum 1.26 mg/dL (0.70-1.30); EST Glomerular Filtration Rate 61 mL/min (>60); Est Glom Filt Rate - Afr Amer 73 mL/min (>60); Globulin 4.8 g/dL (2.2-4.2); Glucose 129 mg/dL (74-106); Magnesium 2.2 mg/dL (1.6-2.6); Potassium 2.9 mmol/L (3.5-5.1); Protein, Total 8.2 g/dL (6.4-8.2); Sodium Level 138 mmol/L (136-145)
== END | disposition home or self-care (01) ==
LOC: MFPLAB 16:45
PROVIDERS: PCP Family Medicine; Visit Provider Family Medicine
DX: M79.89 Other specified soft tissue disorders (principal)
CPT/HCPCS: 36415; 80053; 83735; 83930

== ENCOUNTER → 2023-03-01 | Outpatient (CLI) | payer MEDICARE, OTHER, SELFPAY ==
--- NOTE | 2023-03-01 13:51 | ART_ITS ---
Reason For Study: Claudication Procedure A bilateral lower extremity continuous wave Doppler with analog waveform analysis,segmental pressures,and ankle brachial indexes with exercise. Left Segmental Pressures Left brachial= 134mmHg. Left posterior tibial artery = 160mmHg. Left dorsalis pedis artery = 141mmHg. Left digit = 123 mmHg. The left dorsalis pedis waveforms are triphasic. The left posterior tibial artery waveforms are triphasic. Right Segmental Pressures Right brachial= 127mmHg. Right posterior tibial artery = 169mmHg. Right dorsalis pedis artery = 151mmHg. Right digit = 133 mmHg. The right dorsalis pedis waveforms are triphasic. The right posterior tibial artery waveforms are triphasic. Indices The right ankle brachial index by the dorsalis pedis is 1.13. The right ankle brachial index by the posterior tibial artery is 1.26. The right digital-brachial index is 0.99. The right post exercise ankle brachial index is 1.06. The left ankle brachial index by the dorsalis pedis is 1.05. The left ankle brachial index by the posterior tibial artery is 1.19. The left digital-brachial index is 0.92. The left post exercise ankle brachial index is 1.06. VL/Lower Ext Art Exam w/ Exercise Interpretation Summary The right posterior tibial and dorsalis pedis ankle-brachial indices at rest ar e normal at 1.26 and 1.13 respectively with normal triphasic Doppler waveforms. The post exercise ri ght ankle-brachial index is abnormal based upon the amount of post exercise decline at 1.06. Clini bob correlation however would be appropriate. The right digital brachial index at rest is myriam l at 0.99 The left lower extremity posterior tibialis and dorsalis pedis ankle-brachial i ndices at rest are 1.19 and 1.05 with normal triphasic Doppler waveforms. The left ankle-brachial index post exercise is normal at 1.06. The left digital brachial index is normal at 0.92 Ordering Physician: Tony Kay Referring Physician: TONY KAY MD Performed By: Raissa Izquierdo RVT
== END | disposition home or self-care (01) ==
LOC: CVS 13:50
PROVIDERS: PCP Family Medicine; Referring Provider Family Medicine; Visit Provider Family Medicine
DX: I73.9 Peripheral vascular disease, unspecified (principal); M79.671 Pain in right foot
CPT/HCPCS: 93924

== ENCOUNTER → 2023-03-06 | Outpatient (CLI) | payer MEDICARE, OTHER, SELFPAY ==
[2023-03-06 18:11] LABS: Anion Gap 9 (5-15); BUN 33 mg/dL (7-18); BUN/Creat Ratio 21.6 RATIO (10-20); Chloride 94 mmol/L (98-107); Creatinine, Serum 1.53 mg/dL (0.70-1.30); EST Glomerular Filtration Rate 49 mL/min (>60); Est Glom Filt Rate - Afr Amer 59 mL/min (>60); Glucose 147 mg/dL (74-106); Potassium 2.9 mmol/L (3.5-5.1); Sodium Level 136 mmol/L (136-145)
== END | disposition home or self-care (01) ==
LOC: MFPLAB 14:37
PROVIDERS: PCP Family Medicine; Visit Provider Family Medicine
DX: E87.6 Hypokalemia (principal)
CPT/HCPCS: 36415; 80048

== ENCOUNTER → 2023-03-12 | Outpatient (CLI) | payer MEDICARE, OTHER, SELFPAY | END | disposition home or self-care (01) | LOC: MTLAB 14:11 | PROVIDERS: PCP Family Medicine; Referring Provider Family Medicine; Visit Provider Family Medicine | DX: Z00.00 Encounter for general adult medical examination without abnormal findings (principal) ==

== ENCOUNTER → 2023-03-15 | Outpatient (CLI) | payer MEDICARE, OTHER, SELFPAY ==
--- NOTE | 2023-03-15 14:02 | ECHOCS_ITS ---
Version 2 Reason For Study: SOFT TISSUE DISORDER Procedure This was a 2D Doppler, Color Flow transthoracic echocardiogram. The study was technically difficult. Contrast injection was performed. Exam performed in department. Left Ventricle Normal LV size. Left ventricular systolic function is normal. The estimated ejection fraction is 60 %. Stage 1 diastolic dysfunction. No regional wall motion abnormalities noted. Right Ventricle Normal RV size. Normal systolic function. Atria The left atrium is moderately enlarged. Normal right atrium. Mitral Valve Mitral valve not well visualized. Tricuspid Valve The tricuspid valve is not well visualized. Aortic Valve The aortic valve is not well visualized. Pulmonic Valve The pulmonic valve is not well visualized. Great Vessels Normal aortic root. The pulmonary artery is normal size. Normal inferior vena cava. Pericardium/Pleural No pericardial effusion. Medication 22 gauge I.V. with prn adaptor inserted into left arm. Diluted definity 1ml given slow IV push to enhance endocardial definition. MMode/2D Measurements & Calculations Ao root diam: 3.4 cm LAV(MOD-bp): 76.0 ml LVAd ap4: 26.3 cm2 LAV(MOD-bp) Indexed: 34.5 ml/m2 LVLd ap4: 8.2 cm LAV(MOD-sp2): 57.9 ml EDV(MOD-sp4): 68.1 ml LAV(MOD-sp4): 83.5 ml EDV(sp4-el): 71.8 ml LVAs ap4: 13.5 cm2 LVLs ap4: 6.5 cm ESV(MOD-sp4): 22.6 ml ESV(sp4-el): 23.9 ml EF(MOD-sp4): 66.8 % EF(sp4-el): 66.8 % SV(MOD-sp4): 45.5 ml SV(sp4-el): 48.0 ml LA A4 area: 27.6 cm2 LA dimension(2D): 4.3 cm RA A4 area: 18.7 cm2 Time Measurements MV dec time: 0.22 sec Doppler Measurements & Calculations MV E max josesito: 70.8 cm/sec Lat Peak E' Josesito: 9.9 cm/sec Med Peak E' Josesito: 7.9 cm/sec MV A max josesito: 83.9 cm/sec E/E' lat: 7.1 E/E' med: 8.9 MV E/A: 0.84 MV V2 max: 87.4 cm/sec MV dec slope: 321.9 cm/sec2 Ao V2 max: 140.9 cm/sec MV max P.1 mmHg Ao max P.0 mmHg MV V2 mean: 48.2 cm/sec Ao V2 mean: 92.2 cm/sec MV mean P.1 mmHg Ao mean P.9 mmHg MV V2 VTI: 24.9 cm Ao V2 VTI: 27.8 cm AV (velocity ratio): 1.0 LV V1 max: 132.5 cm/sec PA V2 max: 93.7 cm/sec LV V1 max P.0 mmHg PA V2 mean: 70.7 cm/sec LV V1 mean P.7 mmHg LV V1 mean: 87.5 cm/sec LV V1 VTI: 28.6 cm ECHO/Echo Complete W/ Contrast Interpretation Summary Normal LV size. Left ventricular systolic function is normal. The estimated ejection fraction is 60 %. Stage 1 diastolic dysfunction. Contrast injection was performed. The study was technically difficult. Ordering Physician: Gabriel Kay Referring Physician: Gabriel Kay Performed By: Roxane Adams RCS
== END | disposition home or self-care (01) ==
LOC: CVS 14:01
PROVIDERS: PCP Family Medicine; Referring Provider Family Medicine; Visit Provider Family Medicine
DX: R60.0 Localized edema (principal)
CPT/HCPCS: 93306; Q9957; A4216; C8929

== ENCOUNTER → 2023-03-23 | Outpatient (CLI) | payer MEDICARE, OTHER, SELFPAY ==
[2023-03-23 16:01] LABS: Anion Gap 11 (5-15); BUN 28 mg/dL (7-18); BUN/Creat Ratio 23.5 RATIO (10-20); Calcium,Total 9.3 mg/dL (8.5-10.1); Chloride 101 mmol/L (98-107); Creatinine, Serum 1.19 mg/dL (0.70-1.30); EST Glomerular Filtration Rate 65 mL/min (>60); Est Glom Filt Rate - Afr Amer 78 mL/min (>60); Glucose 109 mg/dL (74-106); Potassium 3.6 mmol/L (3.5-5.1); Sodium Level 139 mmol/L (136-145)
== END | disposition home or self-care (01) ==
LOC: MFPLAB 13:41
PROVIDERS: PCP Family Medicine; Visit Provider Family Medicine
DX: I50.30 Unspecified diastolic (congestive) heart failure (principal)
CPT/HCPCS: 36415; 80048

== ENCOUNTER → 2023-03-30 | Outpatient (CLI) | payer MEDICARE, OTHER, SELFPAY ==
[2023-03-30 18:08] LABS: Anion Gap 9 (5-15); BUN 30 mg/dL (7-18); BUN/Creat Ratio 22.1 RATIO (10-20); Calcium,Total 9.2 mg/dL (8.5-10.1); Chloride 103 mmol/L (98-107); Creatinine, Serum 1.36 mg/dL (0.70-1.30); EST Glomerular Filtration Rate 56 mL/min (>60); Est Glom Filt Rate - Afr Amer 67 mL/min (>60); Glucose 143 mg/dL (74-106); Potassium 3.6 mmol/L (3.5-5.1); Sodium Level 138 mmol/L (136-145)
== END | disposition home or self-care (01) ==
LOC: MFPLAB 13:50
PROVIDERS: PCP Family Medicine; Visit Provider Family Medicine
DX: E87.6 Hypokalemia (principal)
CPT/HCPCS: 36415; 80048

== ENCOUNTER → 2023-04-06 | Outpatient (CLI) | payer MEDICARE, OTHER, SELFPAY ==
[2023-04-06 17:51] LABS: Anion Gap 3 (5-15); BUN 27 mg/dL (7-18); Calcium,Total 9.8 mg/dL (8.5-10.1); Chloride 109 mmol/L (98-107); Creatinine, Serum 1.23 mg/dL (0.70-1.30); EST Glomerular Filtration Rate 62 mL/min (>60); Est Glom Filt Rate - Afr Amer 75 mL/min (>60); Glucose 107 mg/dL (74-106); Potassium 4.6 mmol/L (3.5-5.1); Sodium Level 139 mmol/L (136-145)
== END | disposition home or self-care (01) ==
LOC: MFPLAB 16:16
PROVIDERS: PCP Family Medicine; Visit Provider Family Medicine
DX: K57.92 Diverticulitis of intestine, part unspecified, without perforation or abscess without bleeding (principal); M79.89 Other specified soft tissue disorders
CPT/HCPCS: 36415; 80048; 86140

== ENCOUNTER → 2023-04-12 | Outpatient (CLI) | payer MEDICARE, OTHER, SELFPAY ==
[2023-04-12 18:10] LABS: Anion Gap 5 (5-15); BUN 26 mg/dL (7-18); BUN/Creat Ratio 20.8 RATIO (10-20); Calcium,Total 9.5 mg/dL (8.5-10.1); Chloride 102 mmol/L (98-107); Creatinine, Serum 1.25 mg/dL (0.70-1.30); EST Glomerular Filtration Rate 61 mL/min (>60); Est Glom Filt Rate - Afr Amer 74 mL/min (>60); Glucose 109 mg/dL (74-106); Potassium 3.7 mmol/L (3.5-5.1); Sodium Level 138 mmol/L (136-145)
== END | disposition home or self-care (01) ==
LOC: MFPLAB 15:24
PROVIDERS: PCP Family Medicine; Visit Provider Family Medicine
DX: E87.6 Hypokalemia (principal)
CPT/HCPCS: 36415; 80048

== ENCOUNTER → 2023-04-25 | Outpatient (CLI) | payer MEDICARE, OTHER, SELFPAY ==
[2023-04-25 10:49] LABS: Anion Gap 6 (5-15); BUN 24 mg/dL (7-18); BUN/Creat Ratio 20.2 RATIO (10-20); Calcium,Total 9.4 mg/dL (8.5-10.1); Chloride 98 mmol/L (98-107); Creatinine, Serum 1.19 mg/dL (0.70-1.30); EST Glomerular Filtration Rate 65 mL/min (>60); Est Glom Filt Rate - Afr Amer 78 mL/min (>60); Glucose 118 mg/dL (74-106); Potassium 3.3 mmol/L (3.5-5.1); Sodium Level 136 mmol/L (136-145)
[2023-04-25 16:21] LABS: Magnesium 2.6 mg/dL (1.6-2.6)
== END | disposition home or self-care (01) ==
LOC: MFPLAB 08:38
PROVIDERS: PCP Family Medicine; Visit Provider Family Medicine
DX: M79.89 Other specified soft tissue disorders (principal)
CPT/HCPCS: 36415; 80048; 83735

== ENCOUNTER → 2023-04-30 | Outpatient (CLI) | payer MEDICARE, OTHER, SELFPAY ==
[2023-04-30 13:23] LABS: Magnesium 2.7 mg/dL (1.6-2.6)
[2023-04-30 16:19] LABS: Anion Gap 6 (5-15); BUN 23 mg/dL (7-18); BUN/Creat Ratio 21.1 RATIO (10-20); Calcium,Total 9.1 mg/dL (8.5-10.1); Chloride 104 mmol/L (98-107); Creatinine, Serum 1.09 mg/dL (0.70-1.30); EST Glomerular Filtration Rate 72 mL/min (>60); Est Glom Filt Rate - Afr Amer 87 mL/min (>60); Glucose 107 mg/dL (74-106); Potassium 3.9 mmol/L (3.5-5.1); Sodium Level 137 mmol/L (136-145)
== END | disposition home or self-care (01) ==
LOC: MFPLAB 10:06
PROVIDERS: PCP Family Medicine; Visit Provider Family Medicine
DX: E87.6 Hypokalemia (principal)
CPT/HCPCS: 36415; 80048; 83735

== ENCOUNTER → 2023-05-10 | Outpatient (CLI) | payer MEDICARE, OTHER, SELFPAY ==
[2023-05-10 18:50] LABS: Anion Gap 6 (5-15); BUN 26 mg/dL (7-18); BUN/Creat Ratio 19.8 RATIO (10-20); Calcium,Total 9.2 mg/dL (8.5-10.1); Chloride 104 mmol/L (98-107); Creatinine, Serum 1.31 mg/dL (0.70-1.30); EST Glomerular Filtration Rate 58 mL/min (>60); Est Glom Filt Rate - Afr Amer 70 mL/min (>60); Glucose 113 mg/dL (74-106); Potassium 4.1 mmol/L (3.5-5.1); Sodium Level 136 mmol/L (136-145)
== END | disposition home or self-care (01) ==
LOC: MFPLAB 14:53
PROVIDERS: PCP Family Medicine; Visit Provider Family Medicine
DX: E87.6 Hypokalemia (principal)
CPT/HCPCS: 36415; 80048

== ENCOUNTER → 2023-05-21 | Outpatient (CLI) | payer MEDICARE, OTHER, SELFPAY ==
[2023-05-21 12:50] LABS: Ferritin 180 ng/mL (26-388)
[2023-05-21 12:56] LABS: Vitamin D,25 Hydroxy 77.8 ng/mL
[2023-05-21 13:07] LABS: Vitamin B12 1617 pg/mL (211-911)
[2023-05-21 13:23] LABS: Anion Gap 7 (5-15); BUN 26 mg/dL (7-18); Calcium,Total 9.2 mg/dL (8.5-10.1); Chloride 104 mmol/L (98-107); Creatinine, Serum 1.18 mg/dL (0.70-1.30); EST Glomerular Filtration Rate 65 mL/min (>60); Est Glom Filt Rate - Afr Amer 79 mL/min (>60); Glucose 112 mg/dL (74-106); Potassium 4.3 mmol/L (3.5-5.1); Sodium Level 137 mmol/L (136-145)
[2023-05-24 05:07] LABS: VITAMIN B6 120.1 ug/L (3.4-65.2); Vitamin B1, Thiamine 127.8 nmol/L (66.5-200.0)
== END | disposition home or self-care (01) ==
LOC: MFPLAB 10:01
PROVIDERS: Family Medicine; PCP Family Medicine; Visit Provider Family Medicine
DX: D64.9 Anemia, unspecified (principal); E55.9 Vitamin D deficiency, unspecified; N28.9 Disorder of kidney and ureter, unspecified
CPT/HCPCS: 36415; 80048; 82306; 82607; 82728; 82746; 84207; 84425

== ENCOUNTER → 2023-06-01 | Outpatient (CLI) | payer MEDICARE, OTHER, SELFPAY ==
[2023-06-01 12:03] LABS: Erythrocyte Sedimentation Rate 39 mm/hr (0-20)
[2023-06-01 12:48] LABS: ALB/GLOB Ratio 0.8 RATIO (0.9-2.4); AST(SGOT) 19 U/L (15-37); Alanine Aminotransfer ALT/SGPT 41 U/L (16-61); Albumin, Serum 3.6 g/dL (3.2-5.0); Alkaline Phosphatase 72 U/L (45-117); Anion Gap 7 (5-15); BUN 27 mg/dL (7-18); BUN/Creat Ratio 23.1 RATIO (10-20); Calcium,Total 9.2 mg/dL (8.5-10.1); Chloride 104 mmol/L (98-107); Creatinine, Serum 1.17 mg/dL (0.70-1.30); EST Glomerular Filtration Rate 66 mL/min (>60); Est Glom Filt Rate - Afr Amer 80 mL/min (>60); Ferritin 145 ng/mL (26-388); Globulin 4.6 g/dL (2.2-4.2); Glucose 110 mg/dL (74-106); Potassium 3.5 mmol/L (3.5-5.1); Protein, Total 8.2 g/dL (6.4-8.2); Sodium Level 139 mmol/L (136-145)
[2023-06-04 13:07] LABS: Anti-Centromere B Ab <0.2 AI (0.0-0.9); Anti-Chromatin <0.2 AI (0.0-0.9); Anti-Jo <0.2 AI (0.0-0.9); Anti-Scleroderma-70 AB <0.2 AI (0.0-0.9); Anti-dsDNA Ab 4 IU/mL (0-9); RNP Ab <0.2 AI (0.0-0.9); SJOGREN'S Anti-SS-A test < 0.2 AI (0.0-0.9); SJOGREN'S Anti-SS-B test < 0.2 AI (0.0-0.9); Smith Ab <0.2 AI (0.0-0.9)
[2023-06-05 04:07] LABS: Albumin 3.6 g/dL (2.9-4.4); Alpha-1-Globulins 0.3 g/dL (0.0-0.4); Alpha-2-Globulins 0.8 g/dL (0.4-1.0); Cytoplasmic Ab (C-ANCA) <1:20 titer (Neg:<1:20); Endomysial Antibody IgA Negative (Negative); Gamma Globulin 1.2 g/dL (0.4-1.8); Immunoglobulin A 378 mg/dL (61-437); Immunoglobulin E 229 IU/mL (6-495); Immunoglobulin G 1498 mg/dL (603-1613); Immunoglobulin M 121 mg/dL (20-172); PROEL- TOTAL PROTEIN 7.3 g/dL (6.0-8.5); Perinuclear Ab (P-ANCA) <1:20 titer (Neg:<1:20); t-Transglutaminase IgA 3 U/mL (0-3)
[2023-06-12 14:08] LABS: Pancreatic Elastase, Fecal 74 (>200)
[2023-06-13 16:09] LABS: Calprotectin, Stool 13 ug/g (0-120); Fats, Neutral Normal (.); Fats, Total Increased (.)
[2023-06-18 14:39] LABS: Miscellaneous Lab Procedure E
== END | disposition home or self-care (01) ==
LOC: LAB 10:54
PROVIDERS: PCP Family Medicine; Referring Provider Internal Medicine Gastroenterology; Visit Provider Internal Medicine Gastroenterology
DX: K57.92 Diverticulitis of intestine, part unspecified, without perforation or abscess without bleeding (principal); R19.7 Diarrhea, unspecified; D48.5 Neoplasm of uncertain behavior of skin
CPT/HCPCS: 36415; 80053; 82274; 82653; 82705; 82728; 82784; 82785; 83516; 83630; 83993; 84165; 85652; 86140; 86225; 86235; 86255; 86256; 86334; 87177; 87209; 87329

== ENCOUNTER → 2023-06-15 | Outpatient (CLI) | payer MEDICARE, OTHER, SELFPAY ==
[2023-06-15 15:21] LABS: Magnesium 2.6 mg/dL (1.6-2.6)
[2023-06-19 12:03] LABS: Anion Gap 4 (5-15); BUN 31 mg/dL (7-18); BUN/Creat Ratio 23.7 RATIO (10-20); Calcium,Total 9.2 mg/dL (8.5-10.1); Chloride 104 mmol/L (98-107); Creatinine, Serum 1.31 mg/dL (0.70-1.30); EST Glomerular Filtration Rate 58 mL/min (>60); Est Glom Filt Rate - Afr Amer 70 mL/min (>60); Glucose 113 mg/dL (74-106); Potassium 4.5 mmol/L (3.5-5.1); Sodium Level 137 mmol/L (136-145)
[2023-06-19 17:07] LABS: VITAMIN B6 28.7 ug/L (3.4-65.2)
== END | disposition home or self-care (01) ==
LOC: MFPLAB 12:10
PROVIDERS: Family Medicine; PCP Family Medicine; Visit Provider Family Medicine
DX: N28.9 Disorder of kidney and ureter, unspecified (principal)
CPT/HCPCS: 36415; 80048; 83735; 84207

== ENCOUNTER → 2023-06-27 | Outpatient (CLI) | payer MEDICARE, OTHER, SELFPAY ==
--- NOTE | 2023-06-27 17:46 | CT_ITS ---
EXAM: CT Abdomen And Pelvis W/ Contrast Injection HISTORY: Diverticulitis TECHNIQUE: Routine protocol CT abdomen pelvis. IV Contrast: Oral and amp; IV Readi-CAT and amp; 100mL Isovue-300 . Oral Contrast: with. Sagittal and coronal images were reconstructed. RADIATION DOSAGE (If Supplied By Facility): CTDIvol = ( 15.41 ) mGy, DLP = ( 1231.94 ) mGycm Individualized dose optimization techniques were used for this CT. COMPARISON: CT abdomen and pelvis 01/28/2018. LIMITATIONS: None. FINDINGS: LOWER CHEST: Reticular opacities in the lower lungs likely scarring. LIVER: Fatty infiltration. GALLBLADDER/BILE DUCTS: Unremarkable. PANCREAS: Unremarkable. SPLEEN: Unremarkable. ADRENAL GLANDS: Unremarkable. KIDNEYS / URETERS: Tiny calculus in the right kidney. Small cyst in the right kidney unchanged. No hydronephrosis. BOWEL / MESENTERY: Small umbilical hernia containing fat and very short segment anterior wall of small bowel. No associated stranding. A few scattered diverticula throughout the colon. No bowel obstruction. APPENDIX: Identified and normal. No evidence of acute appendicitis. PERITONEUM: No free air. No free fluid. VESSELS: Abdominal aorta is normal caliber. RETROPERITONEUM: Unremarkable. REPRODUCTIVE ORGANS: Prostate enlarged. BLADDER: Unremarkable. ABDOMINAL WALL: Unremarkable. BONES: Degenerative changes in the lumbar spine. OTHER: None. CT/Abdomen/Pelvis WITH Contrast IMPRESSION: No acute findings. Colonic diverticulosis without evidence of acute diverticulitis. Small umbilical hernia containing minimal anterior wall small bowel without evidence complication. Right nephrolithiasis without hydronephrosis. Enlarged prostate. Electronically Signed: Iraida Rome MD at 5:43 EDT ,
== END | disposition home or self-care (01) ==
LOC: CT 17:42
PROVIDERS: PCP Family Medicine; Referring Provider Internal Medicine Gastroenterology; Visit Provider Internal Medicine Gastroenterology
DX: K57.92 Diverticulitis of intestine, part unspecified, without perforation or abscess without bleeding (principal)
CPT/HCPCS: 74177; Q9967

== ENCOUNTER 2023-07-20 12:48 | Day surgery (SDC) | payer MEDICARE, OTHER, SELFPAY ==
[2023-07-20 13:09] VITALS: BP 135/96; PULSE 82; RESP 17; TEMP 36.1; O2SAT 95; BMI 39.2
--- NOTE | 2023-07-20 14:15 | CYST_PTH ---
PATIENT: BALTAZAR GREY LOC: [facility] – [place] U#:[id number] AGE/SX: 67/M ROOM: RE07/20/[address]: Dr. Susan Leo MD : 1955 BED: DIS: 07/20/2023 SPEC #: [id number] RECD: 07/20/23 18:24 STATUS: DISHA LEONCIO #: [id number] ZOË: 07/20/23 14:[address]: Susan Leo DEPT: SURGICAL PATHOLOGY RECD BY: Juliet Armenta ENTERED: 07/23/23 07:32 SP TYPE: Cyst OTHR DR: Dr. Gabriel Kay MD Tissues: CYST Procedures: Surgery Specimen Level III HEADER OPERATION: Excision cyst left chin intermediate closure PRE-OP DIAGNOSIS: Subcutaneous mass left chin TISSUE SUBMITTED: Subcutaneous mass left chin MICROSCOPIC DIAGNOSIS Subcutaneous mass left chin, excisional biopsy: Epidermal inclusion cyst. CHANDLER:latrell 07/24/2023 MICROSCOPIC DESCRIPTION Slides are reviewed. GROSS DESCRIPTION Received in fixative is one container labeled with the patient's name and designated subcutaneous cyst left chin. The specimen consists of a peña-white skin ellipse measuring 1.1 x 0.5 cm and up to 0.5 cm in thickness. The specimen is inked, serially sectioned and reveals a cyst filled with peña-white cheesy material measuring 0.5 cm in greatest dimension. The entire specimen is submitted in one cassette. / SJ:rg 07/23/2023 :5 [facility]: [id number]
--- NOTE | 2023-07-20 14:38 | PCM.HP.STD ---
HPI - General General Date of Service: 07/20/23 Chief Complaint: subcutaneous mass left chin area HPI Narrative BALTAZAR GREY, is a 67 M who presents with a subcutaneous mass of the left corner of his mouth. He presents for removal. [facility] Medical History (Updated 06/01/23 @ 12:[address] Contreras Friend, DO) Allergy, food Back problem Cancer Deafness in right ear HTN (hypertension) Microscopic colitis Muscle cramps Seasonal allergies Sleep apnea Vestibular schwannoma Vocal cord cancer Home Medications Alpha Lipoic Acid 300 mg PO BID 05/25/17 [History Last Taken Unknown] L.acidoph, paracasei,B. lactis 10 billion cell capsule 1 ea PO DAILY 05/25/17 [History Last Taken Unknown] arginine (L-arginine) 500 mg tablet 900 mg PO BID 05/25/17 [History Last Taken Unknown] cyanocobalamin (vitamin B-12) 5,000 mcg disintegrating tablet 5,000 mcg PO DAILY 05/25/17 [History Last Taken Unknown] furosemide 40 mg tablet 40 mg PO DAILY 05/25/17 [History Last Taken Unknown] gabapentin 300 mg capsule (Neurontin) 300 mg PO QHS 05/25/17 [History Last Taken Unknown] glucosamine sulfate 750 mg tablet 1,500 mg PO BID 05/25/17 [History Last Taken Unknown] magnesium oxide 250 mg PO BID 05/25/17 [History Last Taken Unknown] multivitamin (Multiple Vitamins tablet) 1 ea PO DAILY 05/25/17 [History Last Taken Unknown] lorazepam 1 mg tablet (Ativan) 1 mg PO DAILY PRN anxiety 02/22/23 [History Last Taken Unknown] cholecalciferol (vitamin D3) 50 mcg (2,000 unit) capsule (Vitamin D3) 2,000 unit PO DAILY 05/29/23 [History Last Taken Unknown] erythromycin 5 mg/gram (0.5 %) eye ointment 1 applic ophthalmic (eye) DAILY PRN unkown 05/29/23 [History Last Taken Unknown] krill oil 500 mg capsule 500 mg PO DAILY 05/29/23 [History Last Taken Unknown] lysine 500 mg tablet (L-Lysine) 500 mg PO BID 05/29/23 [History Last Taken Unknown] potassium citrate 10 mEq (1,080 mg) tablet,extended release 10 meq PO .qid 05/29/23 [History Last Taken Unknown] triamterene 37.5 mg-hydrochlorothiazide 25 mg capsule 1 cap PO DAILY 05/29/23 [History Last Taken Unknown] Allergy/AdvReac Type Severity Reaction Status Date / Time aspirin Allergy Hives Verified 07/20/23 13:07 Penicillins Allergy Unknown Verified 07/20/23 13:07 Sulfa (Sulfonamide AdvReac MIGRAINES Verified 07/20/23 13:07 Antibiotics) Family History Uncle Peripheral neuropathy Brother Neuropathy S/P CABG x 4 TONI (obstructive sleep apnea) Father Heart disease Grandmother CAD (coronary artery disease) Grandfather CAD (coronary artery disease) Myocardial infarction Aunt Dementia Aunt Breast cancer Surgical History H/O hemorrhoidectomy History of cataract removal with insertion of prosthetic lens Hx of cataract surgery Social History Smoking Status: Never smoker alcohol intake: never substance use type: does not use additional social history: Does not use aspirin or ibuprofen. Vital Signs Vital Signs Vital Signs: 07/20/23 13:09 07/20/23 13:09 Temperature 97.0 F L Temperature Source Temporal Pulse Rate 82 Respiratory Rate 17 Respiratory Pattern Normal Blood Pressure 135/96 H Blood Pressure Mean 109 Blood Pressure Source Monitor Blood Pressure Position Semi-Fowlers Blood Pressure Location Right Arm Pulse Ox 95 Oxygen Delivery Method Room Air Weight Weight: 243 lb 6.245 oz Body Mass Index (BMI) 39.2 Physical Exam Const alert, oriented x3, no apparent distress, average body habitus and well nourished General Appearance: cooperative and well developed Orientation / Consciousness: oriented to person, oriented to place and oriented to time HEENT head/scalp atraumatic, external ears normal and external nose normal Head and Scalp: normal to inspection, normocephalic, atraumatic and abrasion Face and Sinus: normal facial exam and face symmetric Nose: external nose normal External Ear: external ears normal External Auditory Canal: EAC's normal Mouth: lips normal Eyes PERRL, EOMs intact bilaterally and conjunctivae normal General Eye: normal appearance of both eyes Periorbital: periorbital findings normal Eyelid: eyelids normal Conjunctiva: conjunctiva normal Pupil: PERRL Neck full ROM Lymph Lymphatic: no lymphadenopathy noted Chest inspection of chest normal Breast/Axilla Palpation: no axillary lymphadenopathy Resp normal respiratory effort, normal air movement and clear to auscultation bilaterally Auscultation: clear to auscultation bilaterally Cardio regular rate, regular rhythm, S1 normal heart sound, S2 normal heart sound and no murmurs Rate: regular rate Rhythm: regular rhythm GI soft to palpation and non-tender Extremity normal to inspection and full ROM General Extremity: normal exam except as noted Skin Skin Narrative: subcutanous mass left corner of his mouth area General Skin Exam: turgor normal Neuro oriented x3, CN's II-XII intact bilaterally, moves all extremities, no focal motor deficits and no sensory deficits noted Sensorium / Orientation: awake, alert, oriented to person, oriented to place and oriented to time Speech: speech normal Gait (Neuro): normal gait Psych mental status grossly normal Attention / Concentration: concentration grossly intact Memory / Cognition: memory grossly intact Assessment & Plan Assessment/Plan (1) Neoplasm of uncertain behavior of skin: PLAN: Plan Pt for excision of the mass with submission for pathologic evaluation
[2023-07-20 14:41] VITALS: BP 124/79; BP 125/76; BP 131/76; BP 137/82; O2SAT 94; O2SAT 95; O2SAT 96; O2SAT 97; O2SAT 98; O2SAT 99
[2023-07-20] MEDS: Povidone Iodine 30 ML Opthalmic Sol 1 DRP (14:44)
[2023-07-20] MEDS: Lidocaine 1% /Epi 1:100 9 ML, Sodium Bicarbonate 1 MEQ OPERA.SITE (15:08)
--- NOTE | 2023-07-20 15:25 | EX.PCM.DISCH ---
Discharge Instructions Diet Discharge Diet: No restrictions Activity Additional Activity Instructions:: Keep back elevated (recliner position) for the next 3-4 nights to reduce swelling and bruising. Blot the area with peroxide 1 x a day. Put a small amount of antibiotic ointment on the area 1 x a day. Follow Up Care Test Results: Test results from this visit will be discussed in further detail at your follow-up appointment, if applicable. Discharge Plan Admission Attending Provider: Susan Leo Primary Care Provider: Gabriel Kay Discharge Orders/Prescriptions Prescriptions: No Action lorazepam [Ativan] 1 mg tablet 1 mg PO DAILY PRN (Reason: anxiety) potassium citrate 10 mEq (1,080 mg) tablet extended release 10 meq PO .qid erythromycin 5 mg/gram (0.5 %) ointment 1 applic ophthalmic (eye) DAILY PRN (Reason: unkown) triamterene-hydrochlorothiazid 37.5-25 mg capsule 1 cap PO DAILY Patient Comments: TAKE ONE CAPSULE BY MOUTH EVERY DAY DIRECTED lysine [L-Lysine] 500 mg tablet 500 mg PO BID krill oil 500 mg capsule 500 mg PO DAILY Alpha Lipoic Acid 300 mg PO BID multivitamin [Multiple Vitamins] 1 EACH tablet 1 ea PO DAILY furosemide 40 MG tablet 40 mg PO DAILY arginine (L-arginine) 500 MG tablet 900 mg PO BID gabapentin [Neurontin] 300 MG capsule 300 mg PO QHS magnesium oxide 250 MG tablet 250 mg PO BID glucosamine sulfate 750 MG tablet 1,500 mg PO BID cyanocobalamin (vitamin B-12) 5,000 MCG tablet,disintegrating 5,000 mcg PO DAILY L.acidoph, paracasei,B. lactis 1 EACH capsule 1 ea PO DAILY cholecalciferol (vitamin D3) [Vitamin D3] 50 mcg (2,000 unit) capsule 2,000 unit PO DAILY Referrals / Follow Up: Gabriel Kay MD [Primary Care Provider] - Disposition Disposition (needs filled in before D/C Order can be placed): Home, Self Care
--- NOTE | 2023-07-20 15:27 | PCM.OPRPT ---
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 This will be sent to pathology for evaluation. The patient agrees and wishes to proceed. The patient was brought to the operating room and placed on the operating room table in the supine position. The left face is prepped and draped in the usual sterile fashion. 1% Xylocaine with epinephrine used for local anesthetic. Following this, an elliptical incision is made over top of the mass and carried down through the subcutaneous tissue until the mass is encountered. The mass is then carefully enucleated from its bed. Hemostasis is controlled with cautery. The wound is then closed in layers using a Monocryl suture in a [id number] fashion to close subcutaneous tissue and dermis. Skin edges were approximated with a running subcuticular Monocryl suture and further refinement the closure was done with a fast-absorbing gut in a horizontal mattress fashion. Dermabond is applied to the site. He tolerated the procedure well and was taken to the recovery area in an awake and stable condition. Needle and sponge counts are correct. Complications None Admit VTE Documentation VTE Mechan Device Prophylaxis: None Reason prophylaxis not ordered:: Treatment Not Indicated
== END 2023-07-20 15:45 | disposition home or self-care (01) ==
LOC: SDC 12:49 → AC 12:51
PROVIDERS: PCP Family Medicine; Referring Provider Plastic Surgery; Visit Provider Plastic Surgery
PROC: (CPT 11442; principal; 2023-07-20 14:05)
DX: L72.0 Epidermal cyst (principal); G47.30 Sleep apnea, unspecified; Z79.899 Other long term (current) drug therapy
CPT/HCPCS: 11442; 00300; 88304

== ENCOUNTER → 2023-08-14 | Outpatient (CLI) | payer MEDICARE, OTHER, SELFPAY ==
[2023-08-14 15:41] LABS: Anion Gap 2 (5-15); BUN 28 mg/dL (7-18); BUN/Creat Ratio 23.1 RATIO (10-20); Calcium,Total 9.3 mg/dL (8.5-10.1); Chloride 102 mmol/L (98-107); Creatinine, Serum 1.21 mg/dL (0.70-1.30); EST Glomerular Filtration Rate 64 mL/min (>60); Est Glom Filt Rate - Afr Amer 77 mL/min (>60); Glucose 118 mg/dL (74-106); Magnesium 2.4 mg/dL (1.6-2.6); Potassium 4.1 mmol/L (3.5-5.1); Sodium Level 135 mmol/L (136-145)
== END | disposition home or self-care (01) ==
LOC: MFPLAB 11:25
PROVIDERS: PCP Family Medicine; Visit Provider Family Medicine
DX: N28.9 Disorder of kidney and ureter, unspecified (principal)
CPT/HCPCS: 36415; 80048; 83735

== ENCOUNTER → 2023-09-13 | Outpatient (CLI) | payer MEDICARE, OTHER, SELFPAY ==
[2023-09-13 10:44] LABS: Anion Gap 4 (5-15); BUN 31 mg/dL (7-18); BUN/Creat Ratio 23.7 RATIO (10-20); Calcium,Total 9.5 mg/dL (8.5-10.1); Chloride 104 mmol/L (98-107); Creatinine, Serum 1.31 mg/dL (0.70-1.30); EST Glomerular Filtration Rate 58 mL/min (>60); Est Glom Filt Rate - Afr Amer 70 mL/min (>60); Glucose 122 mg/dL (74-106); Potassium 4.1 mmol/L (3.5-5.1); Sodium Level 136 mmol/L (136-145)
== END | disposition home or self-care (01) ==
PROVIDERS: PCP Family Medicine; Referring Provider Family Medicine; Visit Provider Family Medicine
DX: N28.9 Disorder of kidney and ureter, unspecified (principal)
CPT/HCPCS: 36415; 80048

== ENCOUNTER 2023-09-24 08:26 | Outpatient (RCR) | payer MEDICARE, OTHER, SELFPAY ==
--- OUTSIDE RECORDS SUMMARY | 2023-09-24 08:54 | XMS RPT_ITS | CCD ---
Author Name Unknown Address [address] [place] [address] Organization [facility] Care Team Providers Care Pyrometer Operator Name Role Phone Maura Linn Unavailable Unavailable Suzanne LOPEZ, Raul Farmer Unavailable [phone] Tony Kay MD Primary Care Provider MARELY CHACON Attending Unavailable TONY KAY Primary Care Unavailable SUJEY MAYO Attending Unavailable MARELY CHACON Referring Unavailable TONY KAY Primary Care Unavailable MARELY CHACON Attending Unavailable NELIDA TONY DONALD Primary Care Unavailable SUJEY MAYO Attending Unavailable NELIDA TONY DONALD Primary Care Unavailable Allergies Allergy Classification Reported Allergen(s) Allergy Type Date of Onset Reaction(s) Facility (7 sources) aspirin; Translations: [ASPIRIN] drug allergy 6 Rash [facility] Work Phone: (2 sources) penicillin v drug allergy 7 [facility] Work Phone: (2 sources) sulfaSALAzine drug allergy 7 [facility] Work Phone: (5 sources) Penicillins; Translations: [PENICILLINS] Propensity to adverse reactions 6 Rash [facility] Work Phone: (5 sources) Sulfamethoxazole; Translations: [SULFAMETHOXAZOLE ] Drug Allergy 2 Other: See Comments [facility] Medications Current Medications Medication Drug Class(es) Dates Sig (Normalized) Sig (Original) benoxinate hydrochloride 4 mg/ml / fluorescein sodium 2.5 mg/ml ophthalmic solution (1 source) Diagnostic Dye Start: 11-01-2022 End: 11-02-2022 fluorescein-benoxin ate 0.25-0.4 % 1 Drop (FLURESS) phenylephrine hydrochloride 25 mg/ml ophthalmic solution (3 sources) alpha-1 Adrenergic Agonist Start: 11-10-2022 End: 11-11-2022 PHENYLephrine 2.5 % 1 Drop (AK-DILATE, DANA-SYNEPHRINE) Completed/Discontinued Medications Medication Drug Class(es) Dates Sig (Normalized) Sig (Original) ALPHA LIPOIC ACID ORAL (4 sources) take 600 mg by mouth once daily ALPHA LIPOIC ACID ORAL Take 600 mg by mouth once daily. 0 Active Problems Active Problems Problem Classification Problem Date Documented Date Episodic/Chronic Anxiety disorders (6 sources) Claustrophobia; Translations: [Claustrophobia] Onset: 05-24-2017 05-24-2017 Chronic Blindness and vision defects (3 sources) Blurring of visual image; Translations: [Other visual disturbances] Episodic Cancer of brain and nervous system (2 sources) Malignant neoplasm of right acoustic nerve; 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] Onset: 05-24-2017 05-24-2017 Chronic Cancer of head and neck (6 sources) Carcinoma in situ of larynx; Translations: [Carcinoma in situ of larynx] Onset: 05-24-2017 05-24-2017 Chronic Cataract (17 sources) Bilateral pseudophakia; Translations: [Presence of intraocular lens] Onset: 09-12-2022 Chronic Disorders of lipid metabolism (2 sources) Hyperlipidemia; Translations: [Hyperlipidemia, unspecified] Onset: 05-24-2017 05-24-2017 Chronic Diverticulosis and diverticulitis (2 sources) Diverticulitis; Translations: [Diverticulitis of intestine, part unspecified, without perforation or abscess without bleeding] Onset: 05-24-2017 05-24-2017 Chronic Esophageal disorders (6 sources) Stricture of esophagus; Translations: [Esophageal obstruction] Onset: 05-24-2017 05-24-2017 Chronic Essential hypertension (2 sources) Hypertensive disorder; Translations: [Essential (primary) hypertension] Onset: 05-24-2017 05-24-2017 Chronic Genitourinary congenital anomalies (4 sources) Multiple congenital cysts of kidney; Translations: [Congenital multiple renal cysts] Onset: 05-01-2016 05-01-2016 Chronic Hemorrhoids (6 sources) Internal hemorrhoids; Translations: [Hemorrhoids] Onset: 05-24-2017 05-24-2017 Episodic Other and unspecified benign neoplasm (4 sources) Benign neoplasm of cranial nerve; Translations: [Benign neoplasm of cranial nerves] Onset: 06-08-2015 06-08-2015 Chronic Other circulatory disease (6 sources) Raynaud's phenomenon ; Translations: [Raynaud's syndrome without gangrene] Onset: 05-24-2017 05-24-2017 Chronic Other congenital anomalies (2 sources) Congenital pes planus; Translations: [Congenital pes planus, unspecified foot] Onset: 05-24-2017 05-24-2017 Chronic Other diseases of veins and lymphatics (2 sources) Lymphedema; Translations: [Lymphedema, not elsewhere classified] Onset: 05-24-2017 05-24-2017 Chronic Other eye disorders (2 sources) Tear film insufficiency; Translations: [Dry eye syndrome of bilateral lacrimal glands] Episodic Other eye disorders (2 sources) Hypertropia of left eye; Translations: [Vertical strabismus, left eye] Episodic Other eye disorders (2 sources) 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; Translations: [Monocular exotropia with other noncomitancies, left eye] Episodic Other hereditary and degenerative nervous system conditions (6 sources) Restless legs; Translations: [Restless legs syndrome] Onset: 05-24-2017 05-24-2017 Chronic Other nervous system disorders (2 sources) Meralgia paresthetica; Translations: [Meralgia paresthetica, left lower limb] Onset: 05-24-2017 05-24-2017 Chronic Other non-traumatic joint disorders (2 sources) Arthropathy of lumbar facet joint; Translations: [Unspecified inflammatory spondylopathy, lumbar region] Onset: 05-24-2017 05-24-2017 Chronic Other nutritional; endocrine; and metabolic disorders (4 sources) Metabolic syndrome X; Translations: [Metabolic syndrome] Onset: 01-10-2008 01-10-2008 Chronic Unclassified (6 sources) Sleep apnea; Translations: [Sleep apnea, unspecified] Onset: 05-24-2017 05-24-2017 Chronic Past or Other Problems Problem Classification Problem Date Documented Da te Episodic/Chronic Abdominal pain (4 sources) Abdominal wall pain; Translations: [Abdominal pain] Onset: 7 05-24-2017 Episodic Calculus of urinary tract (4 sources) Kidney stone; Translations: [Calculus of kidney] Onset: 6 05-01-2016 Episodic Gastrointestinal hemorrhage (4 sources) Lower gastrointestinal hemorrhage; Translations: [Gastrointestinal hemorrhage, unspecified] Onset: 2 11-01-2011 Episodic Other and unspecified benign neoplasm (2 sources) Benign neoplasm of testis; Translations: [Benign neoplasm of unspecified testis] Onset: 7 05-24-2017 Episodic Other connective tissue disease (9 sources) Radial styloid tenosynovitis; Translations: [Muscle pain] Onset: 7 05-24-2017 Episodic Other connective tissue disease (1 source) Muscle pain; Translations: [Myalgia] Onset: 7 05-24-2017 Episodic Other connective tissue disease (1 source) Swelling of lower limb; Translations: [Other specified soft tissue disorders] Onset: 7 05-24-2017 Episodic Other connective tissue disease (1 source) Fibromyositis; Translations: [Fibromyalgia] Onset: 7 05-24-2017 Episodic Other gastrointestinal disorders (2 sources) Dysphagia; Translations: [Dysphagia, unspecified] Onset: 7 05-24-2017 Episodic Other skin disorders (4 sources) Sebaceous cyst of skin; Translations: [Sebaceous cyst] Onset: 7 11-08-2006 Episodic Residual codes; unclassified (4 sources) H/O: urinary disease; Translations: [Personal history of other specified conditions] Onset: 6 05-01-2016 Episodic Skin and subcutaneous tissue infections (6 sources) Cellulitis; Translations: [Cellulitis and abscess of trunk] Onset: 7 05-24-2017 Episodic Unclassified (2 sources) Decreased testosterone level ; Translations: [Testicular hypofunction] Onset: 7 05-24-2017 Episodic Results Test Name Value Interpretation Reference Range Facil ity Vital Signs Date Time Vital Sign Value Performing Clinician Facility 05-24-2017 08:0400 BMI (Body Mass Index) 36.38 kg/m2 Maura Linn [facility] Work Phone: 05-24-2017 08:09-0400 Body Temperature 97.6 [degF] [facility] Work Phone: 05-24-2017 08:09-0400 Body Temperature 97.59 [degF] [facility] Work Phone: 05-24-2017 08:09-0400 BP Diastolic 84 mm[Hg] [facility] Work Phone: 05-24-2017 08:09-0400 BP Systolic 136 mm[Hg] [facility] Work Phone: 05-24-2017 08:09-0400 Height 167.64 cm [facility] Work Phone: 05-24-2017 08:09-0400 Pulse (Heart Rate) 64 /min [facility] Work Phone: 05-24-2017 08:09-0400 Respiratory Rate 18 /min [facility] Work Phone: 05-24-2017 08:09-0400 Weight 102.24 kg [facility] Work Phone: Encounters Encounter Date Encounter Type Care Provider Facility Start: 11-10-2022 End: 11-10-2022 ambulatory MARELY CHACON Facility:[facility] Start: 11-10-2022 End: 11-10-2022 Patient encounter procedure Marely Chacon OD Work Phone: Ophthalmology Procedures Date Procedure Procedure Detail Performing Clinician Start: 11-01-2022 Post-cataract laser surgery Sujey Mayo MD Work Phone: Start: 10-31-2022 Visual field xm uni/ bi w/interp extended exam Marely Chacon OD Work Phone: Start: 09-12-2022 End: 09-12-2022 Computerized ophthalmic imaging retina Sujey Mayo MD Work Phone: Start: 11-08-2011 Colonoscopy Sujey stoner MD Work Phone: Plan of Treatment Date Care Activity Detail Author Start: 10-08-2022 ADVANCE DIRECTIVE DISCUSSION ADVANCE DIRECTIVE DISCUSSION [facility] Start: 10-08-2022 DEPRESSION ASSESSMENT DEPRESSION ASSESSMENT [facility] Start: 06-08-2022 Influenza vaccination INFLUENZA (#1) [facility] Start: 10-08-2021 ADVANCE DIRECTIVE DISCUSSION ADVANCE DIRECTIVE DISCUSSION [facility] Start: 10-08-2021 DEPRESSION ASSESSMENT DEPRESSION ASSESSMENT [facility] Start: 05-01-2021 PROSTATE CANCER SCREENING DISCUSSION PROSTATE CANCER SCREENING DISCUSSION [facility] Start: 12-30-2020 PNEUMOCOCCAL: 65+ (1 - PCV) PNEUMOCOCCAL: 65+ (1 - PCV) [facility] Start: 05-01-2019 DIABETES SCREEN DIABETES SCREEN [facility] Start: 05-28-2017 End: 05-28-2017 Appointment Appointment [facility] [employer] Work Phone: Start: 05-24-2017 End: 05-28-2017 Diagnostic colonoscopy Colonoscopy [facility] [employer] Work Phone: Start: 11-08-2012 Colonoscopy COLONOSCOPY [facility] Start: 11-08-2012 COLORECTAL CANCER SCREENING COLORECTAL CANCER SCREENING [facility] Start: 12-30-2005 SHINGRIX VACCINE (1 of 2) SHINGRIX VACCINE (1 of 2) [facility] Start: 12-30-2000 COLOGUARD (FIT-DNA) COLOGUARD (FIT-DNA) [facility] Start: 12-30-[address] COLONOGRAPHY [facility] Start: 12-30-2000 FECAL OCCULT BLOOD FECAL OCCULT BLOOD [facility] Start: 12-30-2000 SIGMOIDOSCOPY SIGMOIDOSCOPY [facility] Start: 12-30-1990 LIPID SCREEN LIPID SCREEN [facility] Start: 12-30-1974 Urine microalbumin profile DTAP,TDAP,TD (1 - Tdap) [facility] Start: 12-30-1973 HEPATITIS C SCREENING HEPATITIS C SCREENING [facility] Payers Date Payer Category Payer Medicare MEDICARE MEDICAR E A AND B [id number] 2020-Present [phone] [place] [address] Medicare [id number] 2020 Medicare [id number] 2014 Medicare [id number] 2014 Unknown [id number] Social History Date Type Detail Facility Start: 11-01-2011 Tobacco smoking stat us MIIS Never smoked tobacco [facility] Start: 11-01-2011 Tobacco use and exposure Smoke less tobacco non-user [facility] Start: 09-12-2022 End: 11-10-2022 Alcohol intake Current non-drinker of alcohol (finding) [facility] Start: 1955 Sex Assigned At Male C [facility] Medical Equipment Procedure Code Equipment Code Equipment Origin al Text Equipment Identifier Dates Mesh Micro [id number] - [id number] Start: 05-24-2015 Pin Crss Sd Scr 1.5x4mm - [id number] Start: 05-24-2015 Clinical Notes 09-12-2022 to 11-10-2022 Marely Chacon, OD - 11/10/2022 1:05 PM Johnny Mayo MD - 11/01/2022 2:18 PM ESTPatient InstructionsMarely Chacon, OBINNA - 10/31/2022 4:23 PM Johnny Mayo MD - 09/12/2022 3:32 PM EST Note Date & Type Note Facility 11-10-2022 Note HNO ID: [id number] Author: Marely Chacon, OBINNA Service: ? 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) Dry eye syndrome of both eyes Patient doing well PO yag right eye BCVA: 20/25 right eye, 20/20 left eye Patient notices improvement Finalized spec rx Use artificial tears as needed Follow-up as needed Marely Chacno, OD November 10, 2022 1:05 PM [facility] 11-10-2022 History of Presen t illness Narrative (H26.491) 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, right (primary encounter diagnosis) (H26.491) 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 Author Type: Physician Type: Progress Notes Filed: 11/01/2022 2:20 PM Note Text: Assessment and Plan 1. Blurred vision, bilateral 2. Pseudophakia of both eyes -uneventful monofocal intraocular lens both eyes 12/2020 -unhappy with vision since -multiple attempts at glasses including with prisms not seem to be fully helping, with frequent change in prescription 3. 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 Further, it is my medical opinion that the posterior capsule opacity is the primary cause, or a significantly contributory cause, of his visual dysfunction. With uncomplicated YAG laser posterior capsulotomy, it is my expectation that his visual function and quality of life will improve, significantly. The risks, benefits, alternatives, personnel and complications of YAG laser posterior capsulotomy were discussed with [place] in detail. he appeared to understand and asked that I proceed with plans for surgery. 4. Dry eye syndrome both eyes -patient on CPAP and wakes up with teary eyes -also history of acoustic neuroma s/p resection, however good blink on exam Plan: -asking for YAG capsulotomy right eye - risk, benefis, and alternatives reviewed and consent obtained. Performed with no complications -artificial tears four times a day both eyes -ointment at bedtime both eyes -follow-up 1 week with dilated fundus exam / sooner as needed. To consider YAG cap left eye if helpful right eye I have confirmed and edited as necessary the relevant ophthalmic history, ROS, and the neuro exam findings as obtained by others. I have seen and examined [place]. I have discussed the case and the management of this patient's care with the Resident/Fellow, if applicable. I also have reviewed and agree with the assessment and plan as stated above and agree with all of its relevant components. Sujey Mayo MD [facility] 11-01-2022 History of Presen t illness Narrative Assessment and Plan 1. Blurred vision, bilateral 2. Pseudophakia of both eyes -uneventful monofocal intraocular lens both eyes 12/2020 -unhappy with vision since -multiple attempts at glasses including with prisms not seem to be fully helping, with frequent change in prescription 3. 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 Further, it is my medical opinion that the posterior capsule opacity is the primary cause, or a significantly contributory cause, of his visual dysfunction. With uncomplicated YAG laser posterior capsulotomy, it is my expectation that his visual function and quality of life will improve, significantly. The risks, benefits, alternatives, personnel and complications of YAG laser posterior capsulotomy were discussed with [place] in detail. he appeared to understand and asked that I proceed with plans for surgery. 4. Dry eye syndrome both eyes -patient on CPAP and wakes up with teary eyes -also history of acoustic neuroma s/p resection, however good blink on exam Plan: -asking for YAG capsulotomy right eye - risk, benefis, and alternatives reviewed and consent obtained. Performed with no complications -artificial tears four times a day both eyes -ointment at bedtime both eyes -follow-up 1 week with dilated fundus exam / sooner as needed. To consider YAG cap left eye if helpful right eye I have confirmed and edited as necessary the relevant ophthalmic history, ROS, and the neuro exam findings as obtained by others. I have seen and examined [place]. I have discussed the case and the management of this patient's care with the Resident/Fellow, if applicable. I also have reviewed and agree with the assessment and plan as stated above and agree with all of its relevant components. Sujey Mayo MD documented in this encounter [facility] 11-01-2022 Instructions Sujey Mayo MD - 11/01/2022 2:09 PM EST Images from the original note were not included. documented in this encounter [facility] 10-31-2022 Note HNO ID: [id number] Author: Marely Chacon, OD Service: ? Author Type: BARREL CUTTER Type: Progress Notes Filed: 10/31/2022 4:28 PM Note Text: 1. 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 Blurred vision, bilateral 3. 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 Hypertropia left eye 5. Exotropia, left eye Doing well with current prism -would not recommend contact lenses d/t prism needs Follow-up with Dr. Mayo in 1-2 weeks for possible yag cap right eye Marely Chacon, OD October 31, 2022 4:23 PM [facility] 10-31-2022 History of Presen t illness Narrative 1. 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 Blurred vision, bilateral 3. 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 Hypertropia left eye 5. Exotropia, left eye Doing well with current prism -would not recommend contact lenses d/t prism needs Follow-up with Dr. Mayo in 1-2 weeks for possible yag cap right eye Marely Chacon, OD October 31, 2022 4:23 PM documented in this encounter [facility] 09-12-2022 Note HNO ID: [id number] Author: Sujey Mayo MD Service: ? Author Type: Physician Type: Progress Notes Filed: 09/12/2022 3:37 PM Note Text: Assessment and Plan 1. Blurred vision, bilateral 2. Pseudophakia of both eyes 3. 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 Is the head-turn positioning in of right sided deafness, along with the astigmatism, contributing to his visual dissatisfaction? -artificial tears four times a day both eyes -erythromycin ointment at bedtime both eyes -follow-up 1-2 months with hickman visual field (HVF) 24-2 and refraction. Would contact lenses be superior to correct vision with head turn? I have confirmed and edited as necessary the relevant ophthalmic history, ROS, and the neuro exam findings as obtained by others. I have seen and examined [place]. I have discussed the case and the management of this patient's care with the Resident/Fellow, if applicable. I also have reviewed and agree with the assessment and plan as stated above and agree with all of its relevant components. Sujey Mayo MD September 12, 2022 3:32 PM [facility] 09-12-2022 History of Presen t illness Narrative Assessment and Plan 1. Blurred vision, bilateral 2. Pseudophakia of both eyes 3. 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 Is the head-turn positioning in of right sided deafness, along with the astigmatism, contributing to his visual dissatisfaction? -artificial tears four times a day both eyes -erythromycin ointment at bedtime both eyes -follow-up 1-2 months with hickman visual field (HVF) 24-2 and refraction. Would contact lenses be superior to correct vision with head turn? I have confirmed and edited as necessary the relevant ophthalmic history, ROS, and the neuro exam findings as obtained by others. I have seen and examined [place]. I have discussed the case and the management of this patient's care with the Resident/Fellow, if applicable. I also have reviewed and agree with the assessment and plan as stated above and agree with all of its relevant components. 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, right- Primary [facility] Diagnosis 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, right- Primary 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 After-cataract, obscuring vision Blurred vision, bilateral Other specified visual disturbances 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, left eye Dry eye syndrome of both eyes documented in this encounter [facility] Advance Directives No Advanced Directives Records FoundDocuments on File Type Date Recorded Patient Special Educator Expl anation Advance Directive(s) 05/27/2015 5:37 PM Medications Administered Section Active Administered Medications - up to 3 most recent administrations Medication Order MAR Action Action Date Dose Rate Site PHENYLephrine 2.5 % 1 Drop (AK-DILATE, DANA-SYNEPHRINE) 1 Drop, BOTH EYES, DIRECTED, Starting on Sun11/10/22 at 1300, Until 11/11/22 at 0059, Administer for dilation PROTECT FROM LIGHT Given 11/10/2022 1:00 PM EST 1 Drop proparacaine 0.5 % 1 Drop (ALCAINE) 1 Drop, BOTH EYES, DIRECTED, Starting on Sun11/10/22 at 1300, Until 11/11/22 at 0059, Administer for pneumo tonometry, tonopen tonometry, or pachymetry. In the event of a proparacaine shortage, administer tetracaine 0.5% ophthalmic drops 1 drop in the left eye as directed for pneumo tonometry, tonopen tonometry, or pachymetry Given 11/10/2022 1:00 PM EST 1 Drop tropicamide 1 % 1 Drop (MYDRIACYL) 1 Drop, BOTH EYES, DIRECTED, Starting on Sun11/10/22 at 1300, Until 11/11/22 at 0059, Administer for dilation Given 11/10/2022 1:00 PM EST 1 Drop Summary Purpose Family History No Family History Records Found Additional Source Comments Source Comments (unrecognize d section and content) In the event this informatio n is protected by the Federal Confidentiality of Alcohol and Drug Abuse Patient Records regulations: The Federal rules restrict any use of the information to criminally investigate or prosecute any alcohol or drug abuse patient.[facility] the event this information is protected by the Federal Confidentiality of Alcohol and Drug Abuse Patient Records regulations: The Federal rules restrict any use of the information to criminally investigate or prosecute any alcohol or drug abuse patient.[facility] Center[facility] the event this information is protected by the Federal Confidentiality of Alcohol and Drug Abuse Patient Records regulations: The Federal rules restrict any use of the information to criminally investigate or prosecute any alcohol or drug abuse patient.[facility] the event this information is protected by the Federal Confidentiality of Alcohol and Drug Abuse Patient Records regulations: The Federal rules restrict any use of the information to criminally investigate or prosecute any alcohol or drug abuse patient.[facility] Reason for Visit (unrecogniz ed section and content) Reason Comments Follow Up For Blurry vision Difficulty Reading Both Eyes Reason Comments Blurred Vision Both Eyes Continues Reason Comments Follow Up For 1 week YAG right eye and dilated exam Care Teams (unrecognized sec tion and content) Pyrometer Operator Relationship Specialty Start Date End Date Tony Kay MD PCP - [facility] Medicine 10/23/11 Pyrometer Operator Relationship Specialty Start Date End Date Tony Kay MD PCP - General [facility] Medicine 10/23/11 Pyrometer Operator Relationship Specialty Start Date End Date Tony Kay MD PCP - [facility] Medicine 10/23/11 (unrecognized sect ion and content) No Status Records Found INFORMATION SOURCE (unrecogn ized section and content) FOR RECORDS PERTAINING TO PATIENTS WHO ARE OR HAVE BEEN ENROLLED IN A CHEMICAL DEPENDENCY/SUBSTANCEABUSE PROGRAM, SOME INFORMATION MAY BE OMITTED. This clinical summary was aggregated from multiple sources. Caution should be exercised in using it in the provision of clinical care. This summary normalizes information from multiple sources, and as a consequence, information in this document may materially change the coding, format and clinical context of patient data. In addition, data may be omitted in some cases. CLINICAL DECISIONS SHOULD BE BASED ON THE PRIMARY CLINICAL RECORDS. [employer] [facility]. provides no warranty or guarantee of the accuracy or completeness of information in this document.
[2023-09-24 11:15] LABS: Anion Gap 5 (5-15); BUN 30 mg/dL (7-18); BUN/Creat Ratio 22.2 RATIO (10-20); Calcium,Total 9.4 mg/dL (8.5-10.1); Chloride 104 mmol/L (98-107); Creatinine, Serum 1.35 mg/dL (0.70-1.30); EST Glomerular Filtration Rate 56 mL/min (>60); Est Glom Filt Rate - Afr Amer 68 mL/min (>60); Glucose 123 mg/dL (74-106); Magnesium 2.7 mg/dL (1.6-2.6); Potassium 4.1 mmol/L (3.5-5.1); Sodium Level 137 mmol/L (136-145)
== END 2023-10-07 18:00 | disposition home or self-care (01) ==
LOC: MTLAB 08:26
PROVIDERS: PCP Family Medicine; Referring Provider Family Medicine; Visit Provider Family Medicine
DX: N28.9 Disorder of kidney and ureter, unspecified (principal)
CPT/HCPCS: 36415; 80048; 83735

== ENCOUNTER 2023-11-07 07:44 | Outpatient (RCR) | payer MEDICARE, OTHER, SELFPAY ==
[2023-11-07 10:33] LABS: Anion Gap 3 (5-15); BUN 33 mg/dL (7-18); BUN/Creat Ratio 25.4 RATIO (10-20); Calcium,Total 9.7 mg/dL (8.5-10.1); Chloride 105 mmol/L (98-107); EST Glomerular Filtration Rate 58 mL/min (>60); Est Glom Filt Rate - Afr Amer 71 mL/min (>60); Glucose 121 mg/dL (74-106); Magnesium 2.9 mg/dL (1.6-2.6); Potassium 4.6 mmol/L (3.5-5.1); Sodium Level 135 mmol/L (136-145)
== END 2023-11-07 18:00 | disposition home or self-care (01) ==
LOC: MTLAB 07:44
PROVIDERS: PCP Family Medicine; Referring Provider Family Medicine; Visit Provider Family Medicine
DX: N28.9 Disorder of kidney and ureter, unspecified (principal)
CPT/HCPCS: 36415; 80048; 83735

== ENCOUNTER → 2023-11-27 | Outpatient (CLI) | payer MEDICARE, OTHER, SELFPAY | END | disposition home or self-care (01) | LOC: MFPLAB 15:51 | PROVIDERS: Internal Medicine Gastroenterology; PCP Family Medicine; Visit Provider Family Medicine | DX: K57.92 Diverticulitis of intestine, part unspecified, without perforation or abscess without bleeding (principal) | CPT/HCPCS: 36415; 86140 ==

== ENCOUNTER → 2023-12-14 | Outpatient (CLI) | payer MEDICARE, OTHER, SELFPAY ==
--- OUTSIDE RECORDS SUMMARY | 2023-12-14 16:36 | XMS RPT_ITS | CCD ---
Author Name Unknown Address [address] [place] [address] Organization [facility] Care Team Providers Care Tissue Inserter Name Role Phone Maura Linn Unavailable Unavailable Suzanne LOPEZ, Raul Farmer Unavailable [phone] Tony Kay MD Primary Care Provider MARELY [...] aspirin; Translations: [ASPIRIN] drug allergy 6 Rash [facility] Work Phone: (2 sources) penicillin v drug allergy 7 [facility] Work Phone: (2 sources) sulfaSALAzine drug allergy 7 [facility] Work Phone: (5 sources) Penicillins; Translations: [PENICILLINS] Propensity to adverse reactions 6 Rash [facility] Work Phone: (5 sources) Sulfamethoxazole; Translations: [SULFAMETHOXAZOLE ] Drug Allergy 2 Other: See Comments [facility] Medications Current Medications Medication Drug Class(es) Dates [...] (Body Mass Index) 36.38 kg/m2 Maura Linn [facility] Work Phone: 05-24-2017 08:09-0400 Body Temperature 97.6 [degF] [facility] Work Phone: 05-24-2017 08:09-0400 Body Temperature 97.59 [degF] [facility] Work Phone: 05-24-2017 08:09-0400 BP Diastolic 84 mm[Hg] [facility] Work Phone: 05-24-2017 08:09-0400 BP Systolic 136 mm[Hg] [facility] Work Phone: 05-24-2017 08:09-0400 Height 167.64 cm [facility] Work Phone: 05-24-2017 08:09-0400 Pulse (Heart Rate) 64 /min [facility] Work Phone: 05-24-2017 08:09-0400 Respiratory Rate 18 /min [facility] Work Phone: 05-24-2017 08:09-0400 Weight 102.24 kg [facility] Work Phone: Encounters Encounter Date Encounter Type Care Provider Facility Start: 11-10-2022 End: 11-10-2022 ambulatory MARELY CHACON Facility:[facility] Start: 11-10-2022 End: 11-10-2022 Patient encounter procedure [...] 10-08-2022 ADVANCE DIRECTIVE DISCUSSION ADVANCE DIRECTIVE DISCUSSION [facility] Start: 10-08-2022 DEPRESSION ASSESSMENT DEPRESSION ASSESSMENT [facility] Start: 06-08-2022 Influenza vaccination INFLUENZA (#1) [facility] Start: 10-08-2021 ADVANCE DIRECTIVE DISCUSSION ADVANCE DIRECTIVE DISCUSSION [facility] Start: 10-08-2021 DEPRESSION ASSESSMENT DEPRESSION ASSESSMENT [facility] Start: 05-01-2021 PROSTATE CANCER SCREENING DISCUSSION PROSTATE CANCER SCREENING DISCUSSION [facility] Start: 12-30-2020 PNEUMOCOCCAL: 65+ (1 - PCV) PNEUMOCOCCAL: 65+ (1 - PCV) [facility] Start: 05-01-2019 DIABETES SCREEN DIABETES SCREEN [facility] Start: 05-28-2017 End: 05-28-2017 Appointment Appointment [facility] Work Phone: Start: 05-24-2017 End: 05-28-2017 Diagnostic colonoscopy Colonoscopy [facility] [employer] Work Phone: Start: 11-08-2012 Colonoscopy COLONOSCOPY [facility] Start: 11-08-2012 COLORECTAL CANCER SCREENING COLORECTAL CANCER SCREENING [facility] Start: 12-30-2005 SHINGRIX VACCINE (1 of 2) SHINGRIX VACCINE (1 of 2) [facility] Start: 12-30-2000 COLOGUARD (FIT-DNA) COLOGUARD (FIT-DNA) [facility] Start: 12-30-[address] COLONOGRAPHY [facility] Start: 12-30-2000 FECAL OCCULT BLOOD FECAL OCCULT BLOOD [facility] Start: 12-30-2000 SIGMOIDOSCOPY SIGMOIDOSCOPY [facility] Start: 12-30-1990 LIPID SCREEN LIPID SCREEN [facility] Start: 12-30-1974 Urine microalbumin profile DTAP,TDAP,TD (1 - Tdap) [facility] Start: 12-30-1973 HEPATITIS C SCREENING HEPATITIS C SCREENING [facility] [place] [facility] [place] [facility] Payers Date Payer Category Payer Medicare MEDICARE MEDICAR E A AND B [id number] 2020-Present [phone] [facility] [place] [address] Medicare [id number] 2020 Medicare [id number] 2014 Medicare [id number] 2014 Unknown [id number] Social History Date Type Detail Facility Start: 11-01-2011 Tobacco smoking stat us PAIS Never smoked tobacco [facility] Start: 11-01-2011 Tobacco use and exposure Smoke less tobacco non-user [facility] Start: 09-12-2022 End: 11-10-2022 Alcohol intake Current non-drinker of alcohol (finding) [facility] Start: 1955 Sex Assigned At Male C [facility] Medical Equipment Procedure Code Equipment Code Equipment Origin al Text Equipment Identifier Dates [employer] 10q59n6.2mm - [id number] Start: 05-24-2015 Pin Crss Sd Scr 1.5x4mm - [id number] Start: 05-24-2015 Clinical Notes 09-12-2022 to 11-10-2022 Marely Chacon, OD - 11/10/2022 1:05 PM Johnny Mayo MD - 11/01/2022 2:18 PM ESTPatient InstructionsMarely Chacon, OBINNA - 10/31/2022 4:23 PM Johnny Mayo MD - 09/12/2022 3:32 PM EST Note Date & Type Note Facility 11-10-2022 Note HNO ID: [id number] Author: Marely Chacon, OBINNA Service: ? Author Type: CABLE TOOL DRILLER Type: Progress Notes Filed: 11/10/2022 1:16 PM [...] as needed Follow-up as needed Marely Chacon, OD November 10, 2022 1:05 PM [facility] 11-10-2022 History of Presen t illness Narrative [...] 2022 1:05 PM documented in this encounter [facility] 11-01-2022 Note HNO ID: [id number] Author: Sujey Mayo MD Service: ? Author [...] of its relevant components. Sujey Mayo MD [facility] 11-01-2022 History of Presen t illness Narrative [...] Sujey Mayo MD documented in this encounter [facility] 11-01-2022 Instructions Sujey Mayo MD - 11/01/2022 2:09 PM EST Images from the original note were not included. documented in this encounter [facility] 10-31-2022 Note HNO ID: [id number] Author: Marely Chacon, OD Service: ? Author Type: CABLE TOOL DRILLER Type: Progress Notes Filed: 10/31/2022 4:28 PM [...] Chacon, OD October 31, 2022 4:23 PM [facility] 10-31-2022 History of Presen t illness Narrative [...] 2022 4:23 PM documented in this encounter [facility] 09-12-2022 Note HNO ID: [id number] Author: Sujey Mayo MD Service: ? 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, left eye [facility] Diagnosis 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, right- Primary [facility] Diagnosis 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, right- Primary 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 After-cataract, obscuring vision Blurred vision, bilateral Other specified visual disturbances 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, left eye Dry eye syndrome of both eyes documented in this encounter [facility] Advance Directives No Advanced Directives Records FoundDocuments on File Type Date Recorded Patient Sandblaster Supervisor Expl anation Advance Directive(s) 05/27/2015 5:37 PM [...] or prosecute any alcohol or drug abuse patient.[facility] the event this information is protected by the Federal Confidentiality of Alcohol and Drug Abuse Patient Records regulations: The Federal rules restrict any use of the information to criminally investigate or prosecute any alcohol or drug abuse patient.[facility] the event this information is protected by the Federal Confidentiality of Alcohol and Drug Abuse Patient Records regulations: The Federal rules restrict any use of the information to criminally investigate or prosecute any alcohol or drug abuse patient.[facility] the event this information is protected by the Federal Confidentiality of Alcohol and Drug Abuse Patient Records regulations: The Federal rules restrict any use of the information to criminally investigate or prosecute any alcohol or drug abuse patient.[facility] Reason for Visit (unrecogniz ed section and content) Reason Comments Follow Up For Blurry vision Difficulty Reading Both Eyes Reason Comments Blurred Vision Both Eyes Continues Reason Comments Follow Up For 1 week YAG right eye and dilated exam Care Teams (unrecognized sec tion and content) Tissue Inserter Relationship Specialty Start Date End Date Tony Kay MD PCP - [facility] Medicine 10/23/11 Tissue Inserter Relationship Specialty Start Date End Date Tony Kay MD PCP - General [facility] Medicine 10/23/11 Tissue Inserter Relationship Specialty Start Date End Date Tony Kya MD PCP - [facility] Medicine 10/23/11 (unrecognized sect ion and [...] BE BASED ON THE PRIMARY CLINICAL RECORDS. [employer] [facility]. provides no warranty or guarantee of the accuracy or completeness of information in this document.
[2023-12-14 18:12] LABS: Anion Gap 7 (5-15); BUN 32 mg/dL (7-18); BUN/Creat Ratio 23.9 RATIO (10-20); CRP 9.94 mg/L (0.0-3.0); Calcium,Total 9.6 mg/dL (8.5-10.1); Chloride 102 mmol/L (98-107); Creatinine, Serum 1.34 mg/dL (0.70-1.30); EST Glomerular Filtration Rate 56 mL/min (>60); Est Glom Filt Rate - Afr Amer 68 mL/min (>60); Glucose 113 mg/dL (74-106); Magnesium 2.5 mg/dL (1.6-2.6); Sodium Level 138 mmol/L (136-145)
== END | disposition home or self-care (01) ==
LOC: MFPLAB 15:12
PROVIDERS: PCP Family Medicine; Visit Provider Family Medicine
DX: K57.92 Diverticulitis of intestine, part unspecified, without perforation or abscess without bleeding (principal)
CPT/HCPCS: 36415; 80048; 83735; 86140

== ENCOUNTER → 2023-12-28 | Outpatient (CLI) | payer MEDICARE, OTHER, SELFPAY ==
[2023-12-28 18:05] LABS: ALB/GLOB Ratio 0.7 RATIO (0.9-2.4); AST(SGOT) 22 U/L (15-37); Alanine Aminotransfer ALT/SGPT 34 U/L (16-61); Albumin, Serum 3.4 g/dL (3.2-5.0); Alkaline Phosphatase 74 U/L (45-117); Anion Gap 6 (5-15); BUN 28 mg/dL (7-18); BUN/Creat Ratio 21.7 RATIO (10-20); Calcium,Total 9.5 mg/dL (8.5-10.1); Chloride 100 mmol/L (98-107); Creatinine, Serum 1.29 mg/dL (0.70-1.30); EST Glomerular Filtration Rate 59 mL/min (>60); Est Glom Filt Rate - Afr Amer 71 mL/min (>60); Globulin 4.7 g/dL (2.2-4.2); Glucose 117 mg/dL (74-106); Potassium 3.7 mmol/L (3.5-5.1); Protein, Total 8.1 g/dL (6.4-8.2); Sodium Level 137 mmol/L (136-145)
== END | disposition home or self-care (01) ==
LOC: MFPLAB 14:44
PROVIDERS: PCP Family Medicine; Visit Provider Family Medicine
DX: I50.30 Unspecified diastolic (congestive) heart failure (principal); R79.82 Elevated C-reactive protein (CRP)
CPT/HCPCS: 36415; 80053; 86140

== ENCOUNTER → 2024-01-22 | Outpatient (CLI) | payer MEDICARE, OTHER, SELFPAY ==
[2024-01-22 18:17] LABS: Anion Gap 6 (5-15); BUN 34 mg/dL (7-18); BUN/Creat Ratio 22.1 RATIO (10-20); Calcium,Total 9.5 mg/dL (8.5-10.1); Chloride 102 mmol/L (98-107); Creatinine, Serum 1.54 mg/dL (0.70-1.30); EST Glomerular Filtration Rate 48 mL/min (>60); Est Glom Filt Rate - Afr Amer 58 mL/min (>60); Glucose 127 mg/dL (74-106); PSA,Total- Diagnostic 5.71 ng/mL (0.0-4.0); Potassium 3.6 mmol/L (3.5-5.1); Sodium Level 138 mmol/L (136-145)
[2024-01-24 14:11] LABS: SJOGREN'S Anti-SS-A test < 0.2 AI (0.0-0.9); SJOGREN'S Anti-SS-B test < 0.2 AI (0.0-0.9)
== END | disposition home or self-care (01) ==
LOC: MFPLAB 15:14
PROVIDERS: PCP Family Medicine; Visit Provider Otolaryngology
DX: R30.0 Dysuria (principal); K11.20 Sialoadenitis, unspecified; R97.20 Elevated prostate specific antigen [PSA]
CPT/HCPCS: 36415; 80048; 84153; 86235

== ENCOUNTER → 2024-02-18 | Outpatient (CLI) | payer MEDICARE, OTHER, SELFPAY ==
[2024-02-18 18:26] LABS: Anion Gap 9 (5-15); BUN 33 mg/dL (7-18); BUN/Creat Ratio 22.4 RATIO (10-20); Calcium,Total 9.4 mg/dL (8.5-10.1); Chloride 102 mmol/L (98-107); Creatinine, Serum 1.47 mg/dL (0.70-1.30); EST Glomerular Filtration Rate 51 mL/min (>60); Est Glom Filt Rate - Afr Amer 61 mL/min (>60); Glucose 101 mg/dL (74-106); PSA,Total- Diagnostic 4.42 ng/mL (0.0-4.0); Potassium 3.6 mmol/L (3.5-5.1); Sodium Level 138 mmol/L (136-145)
== END | disposition home or self-care (01) ==
LOC: MFPLAB 15:04
PROVIDERS: PCP Family Medicine; Visit Provider Family Medicine
DX: R97.20 Elevated prostate specific antigen [PSA] (principal)
CPT/HCPCS: 36415; 80048; 84153

== ENCOUNTER → 2024-06-12 | Outpatient (CLI) | payer MEDICARE, OTHER, SELFPAY | END | disposition home or self-care (01) | LOC: MFPLAB 14:42 | PROVIDERS: PCP Family Medicine; Visit Provider Family Medicine | DX: L72.9 Follicular cyst of the skin and subcutaneous tissue, unspecified (principal) | CPT/HCPCS: 87070; 87077; 87186; 87205 ==

== ENCOUNTER 2024-06-16 06:59 | Day surgery (SDC) | payer MEDICARE, OTHER, SELFPAY ==
[2024-06-16] MEDS: Lactated Ringers 1,000 ML 15 ML IV (07:25)
--- NOTE | 2024-06-16 07:27 | PCM.PRE.AN2 ---
ASA Classification* ASA Classification ASA Classification: 3 Assessment & Plan Anesthesia* Anesthesia Assessment Anesthesia Assessment: Discussed sedation and/or anesthesia options, risks, benefits, and alternatives with patient/parents/legal guardian/POA. Questions invited. The patient/parents/legal guardian/POA seems to understand and agrees to proceed with anesthesia plan. Reviewed the physical assessment, medical history, allergy history and patient home medications list prior to surgery/procedure/anesthetic and documented any changes. Performed airway and anesthesia risk assessments. Anesthesia Type Anesthesia Type: MAC Anesthesia Focused Assessment* Airway Assessment Mouth opens: >3 cm Mallampati Score: II Focused Labs Anesthesia Preop lab: CBC WBC 5.4 K/mm3 (4.4-11.0) 11/15/21 09:17 RBC 5.27 M/mm3 (4.6-6.2) 11/15/21 09:17 Hgb 14.5 g/dL (13.0-16.5) 11/15/21 09:17 Hct 45.2 % (40-54) 11/15/21 09:17 Plt Count 225 K/mm3 (150-450) 11/15/21 09:17 CHEMISTRY Potassium 3.6 mmol/L (3.5-5.1) 02/18/24 15:04 Sodium 138 mmol/L (136-145) 02/18/24 15:04 Magnesium 2.5 mg/dL (1.6-2.6) 12/14/23 15:12 BUN 33 mg/dL (7-18) H 02/18/24 15:04 Creatinine 1.47 mg/dL (0.70-1.30) H 02/18/24 15:04 Glucose 101 mg/dL (74-106) 02/18/24 15:04 TSH 1.02 uIU/mL (0.358-3.74) 09/18/18 09:23 COAG Pre-Assessment Diagnosis/Proposed Procedure Planned Operative Procedure(s): COLONOSCOPY Anesthesia History Anesthesia History - radiology special procedure tech: Anesthesia History - radiology special procedure tech Hx Hospitalization No 06/11/24 08:53 Any Problems With Anesthesia No 06/11/24 08:53 Cholinesterase deficiency No 06/11/24 08:53 You/Your Family Experience No 06/11/24 08:53 fever (hyperthermia) with Relationship Recent Exposure to Contagious No 07/20/23 13:09 Disease Does patient have nerve No 06/11/24 08:53 stimulator Patient instructed to have device shut off --Does patient have Pacemaker or ICD? When Was Last Pacemaker Check QUESTION #4 FULL TEXT: You/Your Family Experience fever (hyperthermia) with Anesthesia Last Oral Intake Last Oral intake: Last Oral Intake NPO since Meds taken in AM with sips of water? Meds patient instructed to take am of surgery PONV PONV - radiology special procedure tech: PONV - radiology special procedure tech Female No 06/11/24 08:53 HX of Motion Sickness No 06/11/24 08:53 HX of N/V After Surgery No 06/11/24 08:53 Non-Smoker Yes 06/11/24 08:53 Duration of Surgery greater No 06/11/24 08:53 than 60 minutes Number of Risk Factors 1 06/11/24 08:53 PONV Score Low Risk 06/11/24 08:53 Height & Weight Height & Weight: Anesthesia: Height & Weight Height 5 ft 6 in 08/28/23 14:14 Respiratory Assessment Respiratory Assessment - radiology special procedure tech: Respiratory Tract Infection Hx - radiology special procedure tech Hx Respiratory Tract Infection No 06/11/24 08:53 STOP Sleep Apnea STOP Sleep Apnea - radiology special procedure tech: STOP Sleep Apnea - radiology special procedure tech Hx Hypertension No 06/11/24 08:53 Hx Sleep Apnea Yes 06/11/24 08:53 CPAP Yes 06/11/24 08:53 BIPAP No 06/11/24 08:53 Do you snore loudly (louder than talking or can be heard Do you often feel tired/ fatigued/ sleepy during daytime? Has anyone observed you stop breathing during sleep? STOP Results Positive 06/11/24 08:53 QUESTION #5 FULL TEXT : Do you snore loudly (louder than talking or can be heard through closed doors)? Tobacco Use History Tobacco Use History - radiology special procedure tech: Tobacco Use History - radiology special procedure tech Tobacco Use Smoking Status Never smoker 06/11/24 08:53 Hx Tobacco Use No 06/11/24 08:53 Years Smoking Packs Smoked per Day Smoking Cessation Date was within the last 15 years Hx Smoking Cessation Date Hx Smoking Cessation Counseling Hematologic Medial History Hematologic Hx - radiology special procedure tech: Hematologic Medical Hx - digital media associate Hx of Blood Transfusion No 06/11/24 08:53 Hx of Transfusion in last 3 No 06/11/24 08:53 Months Date of Last Transfusion (if within last 3 months) Ever experience any problems No 06/11/24 08:53 with transfusion(s)? Specify any problems Hx of Preganancy in last 3 N/A 06/11/24 08:53 Months Nurse Filling Out Transfusion VCHRISTIN 06/11/24 08:53 & Questions: Date: 06/11/24 06/11/24 08:53 Time: 08:54 06/11/24 08:53 Patient unable to answer at this time (ie. confused, unrespo /Reproduction History /Reproductive History - radiology special procedure tech: /Reproductive Hx- radiology special procedure tech Hx Now Gestational Age (in weeks): EDC: Hx Hx Para Hx Section SAB Active Medications Active Medications: Current Medications Generic Name Dose Route Start Last Admin Trade Name Freq PRN Reason Stop Dose Admin Lactated Ringer's 1,000 mls @ 15 mls/hr 06/16/24 07:15 06/16/24 07:25 IV 15 mls/hr .Q48H FERNANDO Administration PFSH Medical History Wears hearing aid Wears glasses High cholesterol Back pain Dietary restriction History of diverticulitis CPAP (continuous positive airway pressure) dependence History of edema History of stress test History of echocardiogram History of acoustic neuroma Vocal cord cancer Deafness in right ear Cancer Back problem Seasonal allergies Sleep apnea Allergy, food Vestibular schwannoma HTN (hypertension) Muscle cramps Microscopic colitis Home Medications ?Medication ?Instructions ?Recorded ?Last Taken ?Type Alpha Lipoic Acid 300 mg PO DAILY 05/25/17 Unknown History L.acidoph, paracasei,B. lactis 10 1 ea PO DAILY 05/25/17 Unknown History billion cell capsule cyanocobalamin (vitamin B-12) 5,000 mcg PO DAILY 05/25/17 Unknown History 5,000 mcg disintegrating tablet furosemide 40 mg tablet 40 mg PO DAILY 05/25/17 Unknown History gabapentin 300 mg capsule 300 mg PO QHS 05/25/17 Unknown History (Neurontin) magnesium oxide 250 mg PO BID 05/25/17 Unknown History lorazepam 1 mg tablet (Ativan) 1 mg PO DAILY PRN anxiety 02/22/23 Unknown History cholecalciferol (vitamin D3) 50 2,000 unit PO DAILY 05/29/23 Unknown History mcg (2,000 unit) capsule (Vitamin D3) erythromycin 5 mg/gram (0.5 %) eye 1 applic ophthalmic (eye) DAILY 05/29/23 Unknown History ointment PRN unkown krill oil 500 mg capsule 500 mg PO DAILY 05/29/23 Unknown History triamterene 37.5 1 cap PO DAILY 05/29/23 Unknown History mg-hydrochlorothiazide 25 mg capsule potassium chloride 20 mEq 40 meq PO BID Because of diuretics 06/11/24 Unknown History tablet,extended release(part/cryst) zinc gluconate 50 mg tablet 50 mg PO DAILY 06/11/24 Unknown History Allergy/AdvReac Type Severity Reaction Status Date / Time aspirin Allergy Hives Verified 06/16/24 07:26 Penicillins Allergy Unknown Verified 06/11/24 08:40 Sulfa (Sulfonamide AdvReac MIGRAINES Verified 06/16/24 07:26 Antibiotics) Family History Uncle Peripheral neuropathy Brother Neuropathy S/P CABG x 4 TONI (obstructive sleep apnea) Father Heart disease Grandmother CAD (coronary artery disease) Grandfather CAD (coronary artery disease) Myocardial infarction Aunt Dementia Aunt Breast cancer Surgical History History of esophagogastroduodenoscopy (EGD) Hx of colonoscopy History of cataract removal with insertion of prosthetic lens H/O hemorrhoidectomy Hx of cataract surgery Social History Smoking Status: Never smoker alcohol intake: never substance use type: does not use additional social history: Does not use aspirin or ibuprofen. Review of Systems (Anesthesia) ROS Narrative System reviewed and no additional complaints, except as documented.
[2024-06-16 07:28] VITALS: BP 138/78; PULSE 78; RESP 18; TEMP 36.7; O2SAT 100; BMI 39.3
--- NOTE | 2024-06-16 08:00 | COLBX_PTH ---
PATIENT: BALTAZAR GREY LOC: EN U#:[id number] AGE/SX: 68/M ROOM: RE06/16/[address]: Dr. Ben Emmanuel DO : 1955 BED: DIS: 06/16/2024 SPEC #: [id number] RECD: 06/16/24 12:27 STATUS: DISHA REKayleigh #: [id number] ZOË: 06/16/24 08:[address]: Ben Emmanuel DEPT: SURGICAL PATHOLOGY RECD BY: Edgardo Barboza ENTERED: 06/16/24 13:16 SP TYPE: COLON BX DORA DR: Dr. Gabriel Kay MD Tissues: A - Cecum, NOS B - COLON BIOPSY C - Rectum, NOS Procedures: Surgery Specimen Level IV HEADER OPERATION: Colonoscopy, biopsy PRE-OP DIAGNOSIS: Diarrhea, abdominal pain TISSUE SUBMITTED: A- Cecal biopsy, B- Random colon biopsy, C- Rectal polyp biopsy MICROSCOPIC DIAGNOSIS A. Cecum, biopsy: No pathologic change. B. Colon, random biopsy: No pathologic change. C. Rectal polyp, biopsy: Hyperplastic polyp. BIANKA/ 06/17/2024 MICROSCOPIC DESCRIPTION Slides are reviewed. GROSS DESCRIPTION A. Received in fixative is one container labeled with the patient's name and designated Cecal biopsy. The specimen consists of two irregular fragments of light peña soft tissue that in aggregate measure 0.8 x 0.3 x 0.1 cm. The specimen is totally submitted in one cassette. B. Received in fixative is one container labeled with the patient's name and designated Random colonic biopsy. The specimen consists of multiple irregular fragments of light peña soft tissue that in aggregate measure 1.5 x 0.5 x 0.1 cm. The specimen is totally submitted in one cassette. C. Received in fixative is one container labeled with the patient's name and designated Rectal polyp biopsy. The specimen consists of one irregular fragment of light peña soft tissue that measures 0.3 x 0.3 x 0.1 cm. The specimen is totally submitted in one cassette. 06/16/2024 TC:5 CPT:81659l1
--- NOTE | 2024-06-16 08:14 | PCM.HP.BLA ---
History and Physical Date of Admission: 06/16/24 JACKIE GREY, is a 68 M who presents to the office today for follow up. PCP OV with leg pain for three weeks, HTN. Notes recurrent diverticulitis. ?CT abd/pel 01.28.?renal calculi, obstructive with inflammation; colonic diverticulosis. ?Biochemical 04.06.23?BMP without pertinent abnormality ? CRP H10.3 ?Biochemical 05.21.23?BMP, B1, Vit D25, folate without pertinent abnormality ? B6 H120.1, B12 H1617 *BGI established 06.01.23 reports many episodes of diverticulitis. BM occur daily with harder stool but no difficulty with movement and feels complete evacuation. Reports last colonoscopy 2016 with diverticulosis and no polyps. Hemorrhoidectomy 2011. FH diverticulitis with mother eventually requiring colostomy. ?Biochemical?CMP, LFT, ferritin, GAME, GUS (Bglobulin H1.4), ANCA, SYLVIA comp, celiac, IBD without pertinent abnormality ? ESR H39, CRP H12.5 ? Stool calprotectin? , lactoferrin, blood WNL? increased total fat, elastase L74 Contact 06.14.23 recommending Creon for low elastase; having LLQ discomfort and loose stools. ?CT abd/pel 06.28.23?hepatic fatty infiltration; real calculus and cyst; small umbilical hernia with short segment of small bowel and fat; diverticulosis; enlarged prostate. ? OV 11.26.23 Pt states he has has LLQ pain the last 4 weeks. Is not as severe as it was previously but still bothers him. Did have one episode of diarrhea when the pain started but has not had any since. OV 8.23.24 pt reports continued abd pain. ROS Const Constitutional: No fatigue, fever(s) or weight change ENT ENT: No difficulty swallowing Gastro GI: Positive for abdominal pain; No belching, bloating, change in bowel habits, change in stool character, coffee ground emesis, constipation, cramping, diarrhea, heartburn, difficulty swallowing, feeling full early, excessive flatus, incontinent of stools, Vomiting blood/hematemesis, Blood in stool, loose stools, Black,tarry stools, nausea/dyspepsia, pain with swallowing, vomiting or other Musc Musculoskeletal: Positive for leg pain at night; No joint pain Skin Skin: No yellowing of the eye or itchy eyes Psych Psychiatric: No anxiety and No depression Endo Endocrine: No fatigue or weight change Aller/Imm Allergy/Immunologic: No itchy eyes Mauro/Lymp Hematologic/Lymphatic: No easy bleeding or easy bruising Exam Const General: cooperative and comfortable Nutritional Appearance: average body habitus and well nourished HENMT Head: normal to inspection Ears: hearing grossly normal bilaterally Nose: external nose normal Face and sinus: normal facial exam Mouth: oral mucosae normal Throat: posterior oropharynx normal Eyes General: appearance normal, both eyes and all related structures Neck Neck: normal visual inspection Chest Chest palpation & inspection: normal inspection of the chest and normal palpation of entire chest wall Resp Effort & Inspection: normal respiratory effort Auscultation: Bilateral: Clear to Auscultation Cardio Palpation: normal PMI Rate: regular rate Rhythm: regular rhythm GI Inspection: normal to inspection Auscultation: normal bowel sounds Percussion: normal to percussion Palpation: no hepatosplenomegaly Skin General: no rashes or lesions noted Neuro General: patient alert Extrem General: normal to inspection Psych Affect: normal affect Assessment and Plan Assessment and Plan (1) Diverticulitis: Status: Chronic (2) Diarrhea: Status: Acute Qualifiers: Diarrhea type: functional diarrhea Qualified Code(s): K59.1 - Functional diarrhea Plan: 67-year-old gentleman with recurrent left lower quadrant pain followed by intermittent diarrhea. He was previously diagnosed with diverticulitis. I explained to him that the natural course of acute diverticulitis did not involve diarrhea. He denies any tenesmus denies any urgency denies any crampy abdominal pain which would be more consistent with diverticulitis. Also denied any fevers, chills, nausea or vomiting just with pain and diarrhea. The differential diagnosis for that would be irritable bowel syndrome with diarrhea, collagenous colitis,, lymphocytic colitis, sigmoid colitis associated with diverticulosis, inflammatory bowel disease. He should undergo stool testing and biochemical testing to evaluate and see which she he really has. He will likely need a colonoscopy will biopsies but we will see what the test shows first and regarding any signs or symptoms of autoimmune disease. Orders: Orders Colonoscopy 06/16/24 K57.92 - Diverticulitis of intestine, part unspecified, without perforation or abscess without bleeding, K59.1 - Functional diarrhea Medications: New prazosin 1 mg PO QHS 30 caps 1RF I have examined the patient and the H&P has been reviewed. There are no clinical changes since date of exam.
[2024-06-16 08:45] VITALS: BP 107/75; BP 138/78; PULSE 63; RESP 18; TEMP 36.2; O2SAT 92
--- NOTE | 2024-06-16 08:47 | PCM.POST.ANE ---
Anesthesia: Postop Eval I Current Vital Signs Temperature: 98.7 F Pulse Rate: 64 Blood Pressure: 107/75 Respiratory Rate: 14 Pulse Ox: 93 Oxygen Delivery Method: Room Air Assessment Airway patent: Yes Spontaneous unlabored respirations: Yes Mental status: Asleep nausea: No Vomiting: No Anesthesia Complication: No Fluid Hydration Crystalloid volume administer (ml): 500 Total IV fluid infused: 500 Progress Note Anesthesia document: Postop Eval 1 completed: Yes
[2024-06-16 08:48] VITALS: BP 107/75; PULSE 64; RESP 14; TEMP 37.1; O2SAT 93
[2024-06-16 08:50] VITALS: BP 106/73; BP 138/78; PULSE 63; RESP 16; O2SAT 94
--- NOTE | 2024-06-16 08:51 | OP.COLON_ITS ---
Patient Name: Yung Bay Procedure Date: 06/16/2024 8:16 AM Date of : 1955 Age: 68 Procedure: Colonoscopy Indications: Abdominal pain in the left lower quadrant, Chronic diarrhea Providers: Ben Emmanuel DO Medicines: Monitored Anesthesia Care Patient Profile: This is a 68 year old male. Refer to note in patient chart for documentation of history and physical. Last Colonoscopy: date unknown. Unable to locate last colonoscopy report. Complications: No immediate complications. Procedure: Pre-Anesthesia Assessment: - Prior to the procedure, a History and Physical was performed, and patient medications and allergies were reviewed. The patient is competent. The risks and benefits of the procedure and the sedation options and risks were discussed with the patient. All questions were answered and informed consent was obtained. Patient identification and proposed procedure were verified by the physician in the pre-procedure area. Mental Status Examination: alert and oriented. Airway Examination: normal oropharyngeal airway and neck mobility. Respiratory Examination: clear to auscultation. CV Examination: normal. Prophylactic Antibiotics: The patient does not require prophylactic antibiotics. Prior Anticoagulants: The patient has taken no anticoagulant or antiplatelet agents except for NSAID medication. ASA Grade Assessment: II - A patient with mild systemic disease. After reviewing the risks and benefits, the patient was deemed in satisfactory condition to undergo the procedure. The anesthesia plan was to use monitored anesthesia care (MAC). Immediately prior to administration of medications, the patient was re-assessed for adequacy to receive sedatives. The heart rate, respiratory rate, oxygen saturations, blood pressure, adequacy of pulmonary ventilation, and response to care were monitored throughout the procedure. The physical status of the patient was re-assessed after the procedure. After I obtained informed consent, the scope was passed under direct vision. Throughout the procedure, the patient's blood pressure, pulse, and oxygen saturations were monitored continuously. The Colonoscope was introduced through the anus and advanced to the terminal ileum. The colonoscopy was performed without difficulty. The patient tolerated the procedure well. The quality of the bowel preparation was adequate. The ileocecal valve, appendiceal orifice, and rectum were photographed. Scope In: 8:28:19 AM Scope Withdrawal Time 0 hours 9 minutes 12 seconds Scope Out: 8:40:17 AM Total Procedure Duration Time 0 hours 11 minutes 58 seconds Findings: The perianal and digital rectal examinations were normal. A 5 mm polyp was found in the rectum. The polyp was sessile. The polyp was removed with a jumbo cold forceps. Resection and retrieval were complete. Verification of patient identification for the specimen was done. Estimated blood loss was minimal. An area of mildly congested mucosa was found in the recto-sigmoid colon, in the sigmoid colon, in the descending colon, at the splenic flexure, in the transverse colon, at the hepatic flexure and in the cecum. Biopsies were taken with a cold forceps for histology. Verification of patient identification for the specimen was done. Estimated blood loss was minimal. Multiple small-mouthed diverticula were found in the recto-sigmoid colon, sigmoid colon, hepatic flexure and ascending colon. The kyle-terminal ileum appeared normal. Impression: - One 5 mm polyp in the rectum, removed with a jumbo cold forceps. Resected and retrieved. - Congested mucosa in the recto-sigmoid colon, in the sigmoid colon, in the descending colon, at the splenic flexure, in the transverse colon, at the hepatic flexure and in the cecum. Biopsied. - Diverticulosis in the recto-sigmoid colon, in the sigmoid colon, at the hepatic flexure and in the ascending colon. - The examined portion of the ileum was normal. - poor sphincter tone Recommendation: - Discharge patient to home. - Resume previous diet. - Continue present medications. - Await pathology results. - Repeat colonoscopy in 5 years for surveillance. Procedure Code(s): --- Professional --- 32366, Colonoscopy, flexible; with biopsy, single or multiple CPT copyright 2021 [employer] [place] [employer]. All rights reserved. The codes documented in this report are preliminary and upon fan engine engineer review may be revised to meet current compliance requirements. Ben Emmanuel DO 06/16/2024 8:50:44 AM This report has been signed electronically. Number of Addenda: 0 Note Initiated On: 06/16/2024 8:16 AM
--- NOTE | 2024-06-16 08:51 | OP.CCLET_ITS ---
06/16/2024 Gabriel Kay [address] [place] [address] Re : Colonoscopy procedure for Yung Pierceadam Dear Dr. Kay This procedure was performed on Sunday, June 16, 2024. My impressions and recommendations are as follows: Impressions : - One 5 mm polyp in the rectum, removed with a jumbo cold forceps. Resected and retrieved. - Congested mucosa in the recto-sigmoid colon, in the sigmoid colon, in the descending colon, at the splenic flexure, in the transverse colon, at the hepatic flexure and in the cecum. Biopsied. - Diverticulosis in the recto-sigmoid colon, in the sigmoid colon, at the hepatic flexure and in the ascending colon. - The examined portion of the ileum was normal. - poor sphincter tone Recommendations : - Discharge patient to home. - Resume previous diet. - Continue present medications. - Await pathology results. - Repeat colonoscopy in 5 years for surveillance. My findings are described in the full procedure note, which is enclosed. If I can be of further assistance, please feel free to contact me at . Sincerely, Ben Emmanuel, 06/16/2024 8:50:44 AM This report has been signed electronically.
[2024-06-16 08:55] VITALS: BP 114/79; BP 138/78; PULSE 61; RESP 16; TEMP 36.6; O2SAT 94
--- NOTE | 2024-06-16 09:05 | PCM.POSTANE2 ---
Anesthesia Postop Eval I Sum Postop Eval Completion status Anesthesia document: Postop Eval 1 completed: Yes Anesthesia Postop Eval I Summary Anesthesia Postop Eval I Summary: Anesthesia Postop Eval I: Assessment Summary Airway patent Yes 06/16/24 08:48 [email or web address] Spontaneous unlabored Yes 06/16/24 08:48 [email or web address] respirations Mental status Asleep 06/16/24 08:48 [email or web address] nausea No 06/16/24 08:48 [email or web address] Vomiting No 06/16/24 08:48 [email or web address] Anesthesia Postop Eval I: Fluid Summary Crystalloid volume administer 500 06/16/24 08:48 [email or web address] (ml) Colloids volume administered ( ml) Blood Product volume administered (ml) Total IV fluid infused 500 06/16/24 08:48 [email or web address] Anesthesia Postop Eval I: Summary Notes Anesthesia Complication No 06/16/24 08:48 [email or web address] Anesthesia Complication Comment: Post-operative progress note Anesthesia: Postop Eval II Evaluation Mental status: Awake Pain Level: 0 nausea: No Vomiting: No
[2024-06-16 09:14] VITALS: BP 138/78
== END 2024-06-16 09:15 | disposition home or self-care (01) ==
LOC: EN 07:00 → AC 07:02
PROVIDERS: PCP Family Medicine; Referring Provider Family Medicine; Visit Provider Internal Medicine Gastroenterology
PROC: 0DJD8ZZ Inspection of Lower Intestinal Tract, Via Natural or Artificial Opening Endoscopic (ICD-10-PCS; CPT 45378; principal; 2024-06-16 07:55)
DX: K57.30 Diverticulosis of large intestine without perforation or abscess without bleeding (principal); K62.1 Rectal polyp; I10 Essential (primary) hypertension; K63.89 Other specified diseases of intestine; G47.30 Sleep apnea, unspecified; Z79.899 Other long term (current) drug therapy
CPT/HCPCS: 45380; 88305; J7120; J2405

== ENCOUNTER → 2024-08-06 | Outpatient (CLI) | payer MEDICARE, OTHER, SELFPAY ==
[2024-08-06 17:29] LABS: Absolute Lymphocyte Count 1.93 X10^3/uL (0.83-4.51); Absolute Neutrophil Count 4.5 X10^3/uL (2.0-7.7); Basophil# 0.03 X10^3/uL; Basophil% 0.4 % (0-1); Eosinophil# 0.13 X10^3/uL; Eosinophils% 1.8 % (0-5); Hematocrit 48.1 % (40-54); Hemoglobin 15.6 g/dL (13.0-16.5); Lymphocyte # 1.93 X10^3/ul (0.83-4.51); Lymphocyte % 26.3 % (19-41); Mean Corp Hgb Conc 32.4 g/dL (32-36); Mean Corpuscular Hgb 26.9 pg (27.0-32.0); Mean Corpuscular Volume 82.8 fL (80-94); Monocyte# 0.71 X10^3/uL; Monocyte% 9.7 % (0-10); NRBC Flagged by Analyzer 0 % (0-5); Neutrophil # 4.52 X10^3/uL (2.7-7.7); Neutrophil % 61.5 % (47-70); Platelet Count 283 K/mm3 (150-450); RBC Distribution Width CV 16.7 % (11.6-14.6); RBC Distribution Width SD 49.6 fl (35.1-43.9); Red Blood Count 5.81 M/mm3 (4.6-6.2); White Blood Count 7.3 K/mm3 (4.4-11.0)
[2024-08-06 18:13] LABS: Ferritin 173 ng/mL (26-388); Iron 51 ug/dL (65-175)
--- OUTSIDE RECORDS SUMMARY | 2024-08-06 19:15 | XMS RPT_ITS | CCD ---
Author Organization [facility] ion [facility] Care Team Providers Care Residential Carpenter Name Role Phone Maura Linn Unavailable Unavailable uSzanne LOPEZ, Raul Farmer Unavailable Rahul LOPEZ, Tony Roman Primary Care Provider [phone] MARELY CHACON Attending Unavailable TONY KAY Primary Care Unavailable SUJEY MAYO Attending Unavailable MARELY CHACON Referring Unavailable TONY KAY Primary Care Unavailable MARELY CHACON Attending Unavailable TONY KAY Primary Care Unavailable SUJEY MAYO Attending Unavailable RAHUL TONY DONALD Primary Care Unavailable Allergies Allergy Classification Reported Allergen(s) Allergy Type Date of Onset Reaction(s) Facility (7 sources) aspirin; Translations: [ASPIRIN] drug allergy 6 Rash [facility] Work Phone: (2 sources) penicillin v drug allergy 7 [facility] Work Phone: (2 sources) sulfaSALAzine drug allergy 7 [facility] Work Phone: (5 sources) Penicillins; Translations: [PENICILLINS] Propensity to adverse reactions 6 Rash [facility] Work Phone: (5 sources) Sulfamethoxazole; Translations: [SULFAMETHOXAZOLE ] Drug Allergy 2 Other: See Comments [facility] Medications Current Medications Medication Drug Class(es) Dates Sig (Normalized) Sig (Original) benoxinate hydrochloride 4 mg/ml / fluorescein sodium 2.5 mg/ml ophthalmic solution (1 source) Diagnostic Dye Start: 11-01-2022 End: 11-02-2022 fluorescein-benoxin ate 0.25-0.4 % 1 Drop (FLURESS) phenylephrine hydrochloride 25 mg/ml ophthalmic solution (3 sources) alpha-1 Adrenergic Agonist Start: 11-10-2022 End: 11-11-2022 PHENYLephrine 2.5 % 1 Drop (AK-DILATE, DANA-SYNEPHRINE) Start: 11-01-2022 End: 11-02-2022 PHENYLephrine 2.5 % 1 Drop ( AK-DILATE, DANA-SYNEPHRINE) Start: 09-12-2022 End: 09-13-2022 PHENYLephrine 2.5 % 1 Drop ( AK-DILATE, DANA-SYNEPHRINE) proparacaine hydrochloride 5 mg/ml ophthalmic solution (3 sources) Local Anesthetic Start: 11-10-2022 End: 11-11-2022 proparacaine 0.5 % 1 Drop (ALCAINE) Start: 11-01-2022 End: 11-02-2022 proparacaine 0.5 % 1 Drop (A LCAINE) Start: 09-12-2022 End: 09-13-2022 proparacaine 0.5 % 1 Drop (A LCAINE) tropicamide 10 mg/ml ophthalmic solution (3 sources) Anticholinergic Start: 11-10-2022 End: 11-11-2022 tropicamide 1 % 1 Drop (MYDRIACYL) Start: 11-01-2022 End: 11-02-2022 tropicamide 1 % 1 Drop (MYDR IACYL) Start: 09-12-2022 End: 09-13-2022 tropicamide 1 % 1 Drop (MYDR IACYL) Completed/Discontinued Medications Medication Drug Class(es) Dates Sig (Normalized) Sig (Original) ALPHA LIPOIC ACID ORAL (4 sources) take 600 mg by mouth once daily ALPHA LIPOIC ACID ORAL Take 600 mg by mouth once daily. 0 Active Comment on above: Take 600 mg by mouth once daily. anastrozole 1 mg oral tablet (6 sources) Aromatase Inhibitor Start: 05-24-2017 End: 11-10-2022 take 1 tablet by mouth once daily ANASTROZOLE 1 MG TABS One tablet by mouth daily ANASTROZOLE [id number] Raul Palacios MD Comment on above: Take 1 mg by mouth o nce daily. arginine (2 sources) Start: 05-24-2017 take 1 tablet by mouth once daily L-ARGININE HCL POWD One tablet by mouth daily ARGININE HCL [id number] Raul Palacios MD ARGININE HCL, L-ARGININE, ORAL (4 sources) take 1800 mg by mouth once daily ARGININE HCL, L-ARGININE, ORAL Take 1,800 mg by mouth once daily. 0 Active Comment on above: Take 1,800 mg by phyllis th once daily. Calcium Carbonate / vitamin D3 (4 sources) take 4000 [IU] by mouth once daily CALCIUM CARBONATE/VITAMIN D3 (VITAMIN D-3 ORAL) Take 4,000 Units by mouth once daily. 0 Active Comment on above: Take 4,000 Units by mouth once daily. cholecalciferol 1000 unt oral capsule (2 sources) Vitamin D Start: 05-24-2017 take 1 tablet by mouth once daily VITAMIN D3 1000 UNIT CAPS One tablet by mouth daily CHOLECALCIFEROL [id number] Raul Palacios MD CHONDROITIN SULFATE A (CHONDROITIN SULFATE ORAL) (4 sources) End: 11-10-2022 take 1500 mg by mouth once daily CHONDROITIN SULFATE A (CHONDROITIN SULFATE ORAL) Take 1,500 mg by mouth once daily. 0 11/10/2022 Discontinued (Course of therapy completed) take 1500 mg by mouth once daily CHONDROITIN SULFATE A (CHONDROITIN SULFATE ORAL) Take 1,500 mg by mouth once daily. 0 Active Comment on above: Take 1,500 mg by phyllis th once daily. CHONDROITIN SULFATE A ORAL (1 source) take 1500 mg by mouth once daily CHONDROITIN SULFATE A ORAL Take 1,500 mg by mouth once daily. 0 Active Comment on above: Take 1,500 mg by phyllis th once daily. chondroitin sulfates (2 sources) Start: 05-24-20 take 1 tablet by mouth once daily CHONDROITIN SULFATE CAPS One tablet by mouth daily CHONDROITIN SULFATE A CAPS [id number] Raul Palacios MD COENZYME [id number] ORAL (4 sources) take 600 mg by mouth twice daily COENZYME [id number] ORAL Take 600 mg by mouth twice daily. 0 Active Comment on above: Take 600 mg by mouth twice daily. CPAP (4 sources) CPAP daily at bedtime. 0 Active Comment on above: daily at bedtime. erythromycin 0.005 mg/mg ophthalmic ointment (4 sources) Macrolide, Macrolide Antimicrobial Start: 09-12-20 End: 11-10-19 erythromycin (ROMYCIN) 5 mg/gram (0.5 %) ophthalmic ointment Use 1 application in both eyes daily at bedtime. 3.5 g 3 09/12/2022 11/10/2022 Discontinued (Side Effects) Comment on above: Use 1 application in both eyes daily at bedtime. fish oil (1 source) Start: 05-24-20 take 1 tablet by mouth once daily [facility] FISH OIL CAPS One tablet by mouth daily OMEGA-3 FATTY ACIDS CAPS [id number] Raul Palacios MD furosemide 40 mg oral tablet (6 sources) Loop Diuretic Start: 05-24-20 take 1 tablet by mouth three times daily FUROSEMIDE 40 MG TABS One tablet by mouth three times daily FUROSEMIDE [id number] Raul Palacios MD take 1 tablet by mouth once isha y furosemide (LASIX) 40 mg tablet Take 40 mg by mouth once daily. 0 Active Comment on above: Take 40 mg by mouth once daily. gabapentin 300 mg oral capsule (6 sources) Anti-epileptic Agent Start: 05-24-2017 take 1 tablet by mouth once daily GABAPENTIN 300 MG CAPS One tablet by mouth daily GABAPENTIN [id number] Raul Palacios MD Comment on above: Take 1 tablet by phyllis once daily. glucosamine (6 sources) Start: 05-24-2017 take 1 tablet by mouth once daily [facility] GLUCOSAMINE SULFATE CAPS One tablet by mouth daily GLUCOSAMINE SULFATE CAPS [id number] Raul Palacios MD take 1500 mg by mouth once daily GLUCOSAMINE HCL ORAL Take 1,500 mg by mouth once daily. 0 Active Comment on above: Take 1,500 mg by phyllis th once daily. levOCARNitine (4 sources) Carnitine Analog take 1000 mg by mouth twice daily LEVOCARNITINE (CARNITINE ORAL) Take 1,000 mg by mouth twice daily. 0 Active Comment on above: Take 1,000 mg by phyllis th twice daily. LORazepam 1 mg oral tablet (4 sources) Benzodiazepine Start: 07-13-20 15 take 1 tablet by mouth every six hours as needed LORazepam (ATIVAN) 1 mg tablet Take 1 mg by mouth every 6 hours as needed. 0 07/13/2015 Active Comment on above: Take 1 tablet by phyllis th as directed. Take 1 mg by mouth e very 6 hours as needed. lysine (6 sources) Start: 05-24-20 take 1 tablet by mouth once daily LYSINE TABS One tablet by mouth daily LYSINE TABS [id number] Raul Palacios MD take 2000 mg by mouth once daily LYSINE ORAL Take 2,000 mg by mouth once daily. 0 Active Comment on above: Take 2,000 mg by phyllis th once daily. magnesium (6 sources) Start: 05-24-2017 take 1 tablet by mouth once daily CHELATED MAGNESIUM TABS One tablet by mouth daily MAGNESIUM TABS [id number] Raul Palacios MD take 1 tablet by mouth twice jono ly Magnesium 250 mg tab Take 250 mg by mouth twice daily. 0 Active Comment on above: Take 250 mg by mouth twice daily. methylsulfonylmethane 1000 mg oral capsule (4 sources) End: 2022 take 1 capsule by mouth once daily Methylsulfonylmethane 1,000 mg cap Take 1,000 mg by mouth once daily. 0 11/10/2022 Discontinued Comment on above: Take 1,000 mg by phyllis th once daily. MULTIPLE VITAMINS-MINERALS (1 source) Start: 2016 take 1 tablet by mouth once daily MULTIVITAMIN ADULT TABS One tablet by mouth daily MULTIPLE VITAMINS-MINERALS [id number] Raul Palacios MD MULTIPLE VITAMINS-MINERALS (1 source) Start: 2016 take 1 tablet by mouth once daily MULTIVITAMIN ADULT TABS One tablet by mouth daily MULTIPLE VITAMINS-MINERALS [id number] Raul Palacios MD MULTIVITAMIN TAB (4 sources) Start: 2005 take 1 tablet by mouth once daily MULTIVITAMIN TAB Take one(1) tablet daily by mouth 0 11/07/2005 Active Comment on above: Take one(1) tablet d aily by mouth OMEGA 3 550 MG CAP (4 sources) Start: 2005 take 1 tablet by mouth once daily OMEGA 3 550 MG CAP Take one(1) tablet daily by mouth 0 11/07/2005 Active Comment on above: Take one(1) tablet d aily by mouth OMEGA-3 FATTY ACIDS CAPS (1 source) Start: 2016 take 1 tablet by mouth once daily [facility] FISH OIL CAPS One tablet by mouth daily OMEGA-3 FATTY ACIDS CAPS [id number] Raul Palacios MD polyethylene glycol 3350 795186 mg / potassium chloride 2820 mg / sodium bicarbonate 6360 mg / sodium chloride 5530 mg / sodium sulfate 94032 mg powder for oral solution (2 sources) Osmotic Laxative Start: 2016 GOLYTELY 227.1 GM SOLR take as directed PEG 8784-JFS-GZZJB-NACL-NASULF [id number] Raul Palacios MD Start: 05-24-2017 GOLYTELY 227.1 GM SOLR take as directed PEG 9219-YQX-TLBHR-NACL-NASULF [id number] Raul Palacios MD polyethylene glycol 400 4 mg/ml / propylene glycol 3 mg/ml ophthalmic solution (4 sources) Start: 09-12-2022 End: 11-10-2022 PEG 400-propylene glycol (SYSTANE ULTRA) 0.4-0.3 % ophthalmic solution Use 1 Drop in both eyes four times daily. 10 mL 4 09/12/2022 11/10/2022 Discontinued Comment on above: Use 1 Drop in both e yes four times daily. potassium 8 meq extended release oral tablet (2 sources) Start: 05-24-2017 take 1 tablet by mouth once daily POTASSIUM CHLORIDE ER 8 MEQ CR-TABS One tablet by mouth daily POTASSIUM CHLORIDE [id number] Raul Palacios MD Start: 05-24-2017 take 1 tablet by phyllis th once daily POTASSIUM CHLORIDE ER 8 MEQ CR-TABS One tablet by mouth daily POTASSIUM CHLORIDE [id number] Raul Palacios MD potassium chloride 8 meq extended release oral capsule (4 sources) End: 11-10-2022 take 8 mEq by mouth once daily potassium chloride SR (MICRO-K) 8 mEq cpER Take 8 mEq by mouth once daily. 0 11/10/2022 Discontinued (Changing Therapy/Dosage Form) Comment on above: Take 8 mEq by mouth once daily. potassium citrate 10 meq extended release oral tablet (4 sources) take 10 mEq by mouth once potassium citrate ER (UROCIT-K) 10 mEq (1,080 mg) TbER Indications: Unilateral vestibular schwannoma (HCC) , TONI (obstructive sleep apnea) Take 1,080 mg by mouth one time only. 0 Active Comment on above: Take 1,080 mg by phyllis th one time only. PROBIOTIC PRODUCT (1 source) Start: 05-24-2017 [facility] PROBIOTIC CAPS PROBIOTIC PRODUCT [id number] Raul Palacios MD PROBIOTIC PRODUCT (1 source) Start: 05-24-2017 [facility] PROBIOTIC CAPS PROBIOTIC PRODUCT [id number] Raul Palacios MD thioctic acid 100 mg oral capsule (2 sources) Start: 05-24-2017 take 1 tablet by mouth once daily ALPHA-LIPOIC ACID 100 MG CAPS One tablet by mouth daily ALPHA-LIPOIC ACID [id number] Raul Palacios MD vitamin B 12 (6 sources) Vitamin B12 Start: 05-24-2017 take 1 tablet by mouth once daily B-12 5000 MCG CAPS One tablet by mouth daily CYANOCOBALAMIN [id number] Raul Palacios MD cyanocobalamin, vitamin B-12, 5,000 mcg/mL drop Dissolve 5,000 mcg under the tongue. 0 Active Comment on above: Dissolve 5,000 mcg u nder the tongue. Problems Active Problems Problem Classification Problem Date [...] Results Test Name Value Interpretation Reference Range Facility Office Visiton 05-24-2017 Documentation of current medications (procedure) Done Invalid Interpretation Code [facility] Work Phone: Fall risk assessment No [facility] Work Phone: Protein mass conc Done [facility] Isabella gical [facility] Work Phone: Tobacco smoking status NHIS Never [facility] Work Phone: Tobacco smoking status NH Never smoker [facility] Work Phone: Tobacco use [facility] Never smoker Invalid Interpretation Code [facility] Work Phone: Office Visiton 11-08-2011 Colonoscopy (procedure) Colonoscopy (procedure) Invalid Interpretation Code [facility] Work Phone: Protein mass conc Colonoscopy (procedure) [facility] Work Phone: No Panel Information [facility] Vital Signs Date Time Vital Sign Value Performing Clinician Facility 05-24-2017 08:09-0400 BMI (Body Mass Index) 36.38 kg/m2 Maura Linn [facility] Work Phone: 05-24-2017 08:09-0400 Body Temperature 97.6 [degF] Maura [facility] Work Phone: 05-24-2017 08:09-0400 Body Temperature 97.59 [degF] Maura [facility] Work Phone: 05-24-2017 08:09-0400 BP Diastolic 84 mm[Hg] Maura [facility] Work Phone: 05-24-2017 08:09-0400 BP Systolic 136 mm[Hg] Maura [facility] Work Phone: 05-24-2017 08:09-0400 Height 167.64 cm Maura Linn [facility] Work Phone: 05-24-2017 08:09-0400 Pulse (Heart Rate) 64 /min Maura [facility] Work Phone: 05-24-2017 08:040 Respiratory Rate 18 /min [facility] Work Phone: 05-24-2017 08:040 [facility] Work Phone: Encounters Encounter Date Encounter Type Care Provider Facility Start: 11-10-2022 End: 11-10-2022 ambulatory MARELY CHACON Facility:[facility] Start: 11-10-2022 End: 11-10-2022 Patient encounter procedure Marely Chacon OD Work Phone: Ophthalmology Comment on above: 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, right (Primary Dx); 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; Blurred vision, bilateral; Hypertropia of left eye; Monocular exotropia with other noncomitancies, left eye; Dry eye syndrome of both eyes Start: 11-01-2022 End: 11-01-2022 ambulatory SUJEY MAYO Facility:[facility] Start: 11-01-2022 End: 11-01-2022 Patient encounter procedure Sujey Mayo MD Work Phone: Ophthalmology Comment on above: 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, right (Primary Dx) Start: 10-31-2022 End: 10-31-2022 ambulatory MARELY CHACON Facility:[facility] Start: 10-31-2022 End: 10-31-2022 Office outpatient visit 15 minutes Marely Chacon OD Work Phone: Ophthalmology Comment on above: Posterior capsular o pacification visually significant of right eye (Primary Dx); Blurred vision, bilateral; 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, bilateral; Hypertropia of left eye; Monocular exotropia with other noncomitancies, left eye Start: 09-12-2022 End: 09-12-2022 ambulatory SUJEY MAYO Facility:[facility] Start: 09-12-2022 End: 09-12-2022 Patient encounter procedure Sujey Mayo MD Work Phone: Ophthalmology Comment on above: Blurred vision, bila teral (Primary Dx); Pseudophakia of both eyes; 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, bilateral; Dry eye syndrome of both eyes Procedures Date Procedure Procedure Detail Performing Clinician [...] 10-08-2022 ADVANCE DIRECTIVE DISCUSSION ADVANCE DIRECTIVE DISCUSSION [facility] Start: 10-08-2022 DEPRESSION ASSESSMENT DEPRESSION ASSESSMENT [facility] Start: 06-08-2022 Influenza vaccination INFLUENZA (#1) [facility] Start: 10-08-2021 ADVANCE DIRECTIVE DISCUSSION ADVANCE DIRECTIVE DISCUSSION [facility] Start: 10-08-2021 DEPRESSION ASSESSMENT DEPRESSION ASSESSMENT [facility] Start: 05-01-2021 PROSTATE CANCER SCREENING DISCUSSION PROSTATE CANCER SCREENING DISCUSSION [facility] Start: 12-30-2020 PNEUMOCOCCAL: 65+ (1 - PCV) PNEUMOCOCCAL: 65+ (1 - PCV) [facility] Start: 05-01-2019 DIABETES SCREEN DIABETES SCREEN [facility] Start: 05-28-2017 End: 05-28-2017 Appointment Appointment [facility] Work Phone: Start: 05-24-2017 End: 05-28-2017 Diagnostic colonoscopy Colonoscopy [facility] Work Phone: Start: 11-08-2012 Colonoscopy COLONOSCOPY [facility] Start: 11-08-2012 COLORECTAL CANCER SCREENING COLORECTAL CANCER SCREENING [facility] Start: 12-30-2005 SHINGRIX VACCINE (1 of 2) SHINGRIX VACCINE (1 of 2) [facility] Start: 12-30-2000 COLOGUARD (FIT-DNA) COLOGUARD (FIT-DNA) [facility] Start: 12-30-[address] COLONOGRAPHY [facility] Start: 12-30-2000 FECAL OCCULT BLOOD FECAL OCCULT BLOOD [facility] Start: 12-30-2000 SIGMOIDOSCOPY SIGMOIDOSCOPY [facility] Start: 12-30-1990 LIPID SCREEN LIPID SCREEN [facility] Start: 12-30-1974 Urine microalbumin profile DTAP,TDAP,TD (1 - Tdap) [facility] Start: 12-30-1973 HEPATITIS C SCREENING HEPATITIS C SCREENING [facility] c Payers Date Payer Category Payer Medicare MEDICARE MEDICAR E A AND B [id number] 2020-Present [phone] [place] [address] Medicare [id number] 2020 Medicare [id number] 2014 Medicare [id number] 2014 Unknown [id number] Social History Date Type Detail Facility Start: 11-01-2011 Tobacco smoking stat [facility] Never smoked tobacco [facility] Start: 11-01-2011 Tobacco use and exposure Smoke less tobacco non-user [facility] Start: 09-12-2022 End: 11-10-2022 Alcohol intake Current non-drinker of alcohol (finding) [facility] Start: 1955 Sex Assigned At Male C [facility] Medical Equipment Procedure Code Equipment Code Equipment Origin al Text Equipment Identifier Dates Mesh Micro [id number] - [id number] Start: 05-24-2015 Pin Crss Sd Scr 1.5x4mm - [id number] Start: 05-24-2015 Clinical Notes 09-12-2022 to 11-10-2022 Marely Chacon OD - 11/10/2022 1:05 PM Johnny Mayo MD - 11/01/2022 2:18 PM ESTPatient InstructionsMarely Chacon OD - 10/31/2022 4:23 PM Johnny Mayo MD - 09/12/2022 3:32 PM EST Note Date & Type Note Facility 11-10-2022 Note HNO ID: [id number] Author: Marely Chacon, OBINNA Service: ? Author Type: SOIL SCIENCE PROFESSOR Type: Progress Notes Filed: 11/10/2022 1:16 PM [...] Chacon, OD November 10, 2022 1:05 PM [facility] 11-10-2022 History of Presen t illness Narrative [...] Chacon, OD November 10, 2022 1:05 PM documented in this encounter [facility] 11-01-2022 Note HNO ID: [id number] Author: Sujey Mayo MD Service: ? Author [...] in prescription 3. 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, bilateral [place] has confirmed that he is no [...] YAG laser posterior capsulotomy were discussed with [place] in detail. he appeared to understand [...] by others. I have seen and examined [place]. I have discussed the case and the management of this patient's care with the Resident/Fellow, if applicable. I also have reviewed and agree with the assessment and plan as stated above and agree with all of its relevant components. Sujey Mayo MD [facility] 11-01-2022 History of Presen t illness Narrative Assessment and Plan 1. Blurred vision, bilateral 2. Pseudophakia of both eyes -uneventful monofocal intraocular lens both eyes 12/2020 -unhappy with vision since -multiple attempts at glasses including with prisms not seem to be fully helping, with frequent change in prescription 3. 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, bilateral [place] has confirmed that he is no [...] YAG laser posterior capsulotomy were discussed with [place] in detail. he appeared to understand [...] by others. I have seen and examined [place]. I have discussed the case and the management of this patient's care with the Resident/Fellow, if applicable. I also have reviewed and agree with the assessment and plan as stated above and agree with all of its relevant components. Sujey Mayo MD documented in this encounter [facility] 11-01-2022 Instructions Sujey Mayo MD - 11/01/2022 2:09 PM EST Images from the original note were not included. documented in this encounter [facility] 10-31-2022 Note HNO ID: [id number] Author: Marely Chacon OD Service: ? Author Type: SOIL SCIENCE PROFESSOR Type: Progress Notes Filed: 10/31/2022 4:28 PM [...] Chacon, OD October 31, 2022 4:23 PM [facility] 10-31-2022 History of Presen t illness Narrative [...] 2022 4:23 PM documented in this encounter [facility] 09-12-2022 Note HNO ID: [id number] Author: Sujey Mayo MD Service: ? Author [...] by others. I have seen and examined [place]. I have discussed the case and the management of this patient's care with the Resident/Fellow, if applicable. I also have reviewed and agree with the assessment and plan as stated above and agree with all of its relevant components. Sujey Mayo MD September 12, 2022 3:32 PM [facility] 09-12-2022 History of Presen t illness Narrative [...] by others. I have seen and examined [place]. I have discussed the case and the management of this patient's care with the Resident/Fellow, if applicable. I also have reviewed and agree with the assessment and plan as stated above and agree with all of its relevant components. Sujey Mayo MD September 12, 2022 3:32 PM documented in this encounter [facility] Evaluation note Diagnosis Blurred vision, bilateral- Primary Other specified visual disturbances Pseudophakia of both eyes Lens replaced by other means 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, bilateral Dry eye syndrome of both eyes [facility] 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- Primary After-cataract, obscuring vision Blurred vision, bilateral Other specified visual disturbances 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, 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, left eye [facility] Diagnosis 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, right- Primary [facility] Diagnosis 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, right- Primary 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 After-cataract, obscuring vision Blurred vision, bilateral Other specified visual disturbances 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, left eye Dry eye syndrome of both eyes documented in this encounter [facility] Advance Directives No Advanced Directives Records FoundDocuments on File Type Date Recorded Patient Medical Social Consultant Expl anation Advance Directive(s) 05/27/2015 5:37 PM Medications Administered Section Active Administered Medications - up to 3 most recent administrations Medication Order MAR Action Action Date Dose Rate Site PHENYLephrine 2.5 % 1 Drop (AK-DILATE, DANA-SYNEPHRINE) 1 Drop, BOTH EYES, DIRECTED, Starting on 11/10/22 at 1300, Until 11/11/22 at 0059, Administer [...] or prosecute any alcohol or drug abuse patient.[facility] the event this information is protected by the Federal Confidentiality of Alcohol and Drug Abuse Patient Records regulations: The Federal rules restrict any use of the information to criminally investigate or prosecute any alcohol or drug abuse patient.[facility] the event this information is protected by the Federal Confidentiality of Alcohol and Drug Abuse Patient Records regulations: The Federal rules restrict any use of the information to criminally investigate or prosecute any alcohol or drug abuse patient.[facility] the event this information is protected by the Federal Confidentiality of Alcohol and Drug Abuse Patient Records regulations: The Federal rules restrict any use of the information to criminally investigate or prosecute any alcohol or drug abuse patient.[facility] Reason for Visit (unrecogniz ed section and content) Reason Comments Blurred Vision Both Eyes 6 months Difficulty Reading Both Eyes Dry Eye(s) Both Eyes Tearing Both Eyes 6 months Reason Comments Follow Up For Blurry vision Difficulty Reading Both Eyes Reason Comments Blurred Vision Both Eyes Continues Reason Comments Follow Up For 1 week YAG right eye and dilated exam Care Teams (unrecognized sec tion and content) Residential Carpenter Relationship Specialty Start Date End Date Tony Kay MD PCP - General Family Medicine 10/23/11 Residential Carpenter Relationship Specialty Start Date End Date Tony Kay MD PCP - General Family Medicine 10/23/11 Residential Carpenter Relationship Specialty Start Date End Date Tony Kay MD PCP - General Family Medicine 10/23/11 Residential Carpenter Relationship Specialty Start Date End Date Tony Kay MD PCP - General Family Medicine 10/23/11 (unrecognized sect ion and content) No Status Records Found INFORMATION SOURCE (unrecogn ized section and content) DATE CREATED AUTHOR 11/11/2022 [facility] FOR RECORDS PERTAINING TO PATIENTS WHO ARE [...] BE BASED ON THE PRIMARY CLINICAL RECORDS. [employer] [facility]. provides no warranty or guarantee of the accuracy or completeness of information in this document.
[2024-08-07 13:00] LABS: Anion Gap 8 (5-15); BUN 28 mg/dL (7-18); BUN/Creat Ratio 20.3 RATIO (10-20); Calcium,Total 9.5 mg/dL (8.5-10.1); Chloride 104 mmol/L (98-107); Creatinine, Serum 1.38 mg/dL (0.70-1.30); EST Glomerular Filtration Rate 54 mL/min (>60); Est Glom Filt Rate - Afr Amer 66 mL/min (>60); Glucose 117 mg/dL (74-106); Sodium Level 139 mmol/L (136-145)
== END | disposition home or self-care (01) ==
LOC: MFPLAB 16:08
PROVIDERS: Family Medicine; PCP Family Medicine; Referring Provider Family Medicine; Visit Provider Family Medicine
DX: N18.30 Chronic kidney disease, stage 3 unspecified (principal)
CPT/HCPCS: 36415; 80048; 82728; 83540; 85025

== ENCOUNTER → 2024-08-07 | Outpatient (CLI) | payer MEDICARE, OTHER, SELFPAY | END | disposition home or self-care (01) | LOC: MTLAB 11:38 | PROVIDERS: PCP Family Medicine; Referring Provider Family Medicine; Visit Provider Family Medicine | DX: N18.30 Chronic kidney disease, stage 3 unspecified (principal) ==

== ENCOUNTER → 2024-08-20 | Outpatient (CLI) | payer MEDICARE, OTHER, SELFPAY ==
[2024-08-20 18:15] LABS: Absolute Neutrophil Count 3.6 X10^3/uL (2.0-7.7); Basophil# 0.05 X10^3/uL; Basophil% 0.8 % (0-1); Eosinophil# 0.13 X10^3/uL; Eosinophils% 2.1 % (0-5); Hematocrit 47.5 % (40-54); Hemoglobin 15.1 g/dL (13.0-16.5); Lymphocyte % 27.8 % (19-41); Mean Corp Hgb Conc 31.8 g/dL (32-36); Mean Corpuscular Hgb 27.2 pg (27.0-32.0); Mean Corpuscular Volume 85.6 fL (80-94); Mean Platelet Vol. 10.3 fl (6.2-12.0); Monocyte# 0.61 X10^3/uL; NRBC Flagged by Analyzer 0 % (0-5); Neutrophil # 3.59 X10^3/uL (2.7-7.7); Neutrophil % 58.8 % (47-70); Platelet Count 273 K/mm3 (150-450); RBC Distribution Width CV 16.9 % (11.6-14.6); RBC Distribution Width SD 51.9 fl (35.1-43.9); Red Blood Count 5.55 M/mm3 (4.6-6.2); White Blood Count 6.1 K/mm3 (4.4-11.0)
[2024-08-20 18:26] LABS: PTHIN 58.7 pg/mL (18.4-80.1)
[2024-08-20 18:28] LABS: Vitamin B12 625 pg/mL (211-911); Vitamin D,25 Hydroxy 46.6 ng/mL
[2024-08-20 18:51] LABS: ALB/GLOB Ratio 0.7 RATIO (0.9-2.4); AST(SGOT) 22 U/L (15-37); Alanine Aminotransfer ALT/SGPT 38 U/L (16-61); Albumin, Serum 3.2 g/dL (3.2-5.0); Alkaline Phosphatase 75 U/L (45-117); Anion Gap 7 (5-15); BUN 24 mg/dL (7-18); Calcium,Total 9.5 mg/dL (8.5-10.1); Chloride 103 mmol/L (98-107); EST Glomerular Filtration Rate 64 mL/min (>60); Est Glom Filt Rate - Afr Amer 77 mL/min (>60); Ferritin 164 ng/mL (26-388); Globulin 4.9 g/dL (2.2-4.2); Glucose 108 mg/dL (74-106); Iron 56 ug/dL (65-175); Iron Binding Capacity,Total 411 ug/dL (250-450); Magnesium 2.7 mg/dL (1.6-2.6); Potassium 3.8 mmol/L (3.5-5.1); Protein, Total 8.1 g/dL (6.4-8.2); Sodium Level 137 mmol/L (136-145)
== END | disposition home or self-care (01) ==
LOC: MFPLAB 15:15
PROVIDERS: PCP Family Medicine; Referring Provider Family Medicine; Visit Provider Family Medicine
DX: D64.9 Anemia, unspecified (principal); N18.30 Chronic kidney disease, stage 3 unspecified; E55.9 Vitamin D deficiency, unspecified; Z79.899 Other long term (current) drug therapy
CPT/HCPCS: 36415; 80053; 82306; 82607; 82728; 82746; 83540; 83550; 83735; 83970; 85025

== ENCOUNTER → 2024-10-16 | Outpatient (CLI) | payer MEDICARE, OTHER, SELFPAY ==
[2024-10-16 17:59] LABS: Anion Gap 6 (5-15); BUN 27 mg/dL (7-18); BUN/Creat Ratio 19.1 RATIO (10-20); Calcium,Total 9.5 mg/dL (8.5-10.1); Chloride 101 mmol/L (98-107); Creatinine, Serum 1.41 mg/dL (0.70-1.30); EST Glomerular Filtration Rate 53 mL/min (>60); Est Glom Filt Rate - Afr Amer 64 mL/min (>60); Glucose 136 mg/dL (74-106); Potassium 3.7 mmol/L (3.5-5.1); Sodium Level 137 mmol/L (136-145)
[2024-10-26 16:07] LABS: Adrenocorticotropic Hormone 21.2 pg/mL (7.2-63.3); Renin, Plasma 11.633 ng/mL/hr (0.167-5.380)
== END | disposition home or self-care (01) ==
PROVIDERS: PCP Family Medicine; Referring Provider Family Medicine; Visit Provider Family Medicine
DX: N18.2 Chronic kidney disease, stage 2 (mild) (principal); I50.30 Unspecified diastolic (congestive) heart failure; M79.89 Other specified soft tissue disorders; G47.33 Obstructive sleep apnea (adult) (pediatric)
CPT/HCPCS: 36415; 80048; 82024; 82088; 84244

== ENCOUNTER → 2024-12-01 | Outpatient (CLI) | payer MEDICARE, OTHER, SELFPAY ==
[2024-12-02 06:41] LABS: Anion Gap 9 (5-15); BUN 26 mg/dL (7-18); BUN/Creat Ratio 21.1 RATIO (10-20); Calcium,Total 9.2 mg/dL (8.5-10.1); Chloride 95 mmol/L (98-107); Creatinine, Serum 1.23 mg/dL (0.70-1.30); EST Glomerular Filtration Rate 62 mL/min (>60); Est Glom Filt Rate - Afr Amer 75 mL/min (>60); Glucose 135 mg/dL (74-106); Potassium 2.9 mmol/L (3.5-5.1); Sodium Level 135 mmol/L (136-145)
== END | disposition home or self-care (01) ==
LOC: MFPLAB 09:17
PROVIDERS: PCP Family Medicine; Referring Provider Family Medicine; Visit Provider Family Medicine
DX: G25.81 Restless legs syndrome (principal)
CPT/HCPCS: 36415; 80048

== ENCOUNTER → 2024-12-04 | Outpatient (CLI) | payer MEDICARE, OTHER, SELFPAY ==
[2024-12-04 13:46] LABS: Anion Gap 13 (5-15); BUN 28 mg/dL (4-19); BUN/Creat Ratio 22.9 RATIO (10-20); Carbon Dioxide 31.3 mmol/L (22.0-29.0); Chloride 94 mmol/L (96-108); Creatinine, Serum 1.2 mg/dL (0.8-1.3); EST Glomerular Filtration Rate 64 (>60); Glucose 135 mg/dL (70-99); Potassium 3.3 mmol/L (3.3-5.1); Sodium Level 138 mmol/L (133-145)
== END | disposition home or self-care (01) ==
LOC: MFPLAB 09:44
PROVIDERS: Family Medicine; PCP Family Medicine; Referring Provider Family Medicine; Visit Provider Family Medicine
DX: N18.30 Chronic kidney disease, stage 3 unspecified (principal)
CPT/HCPCS: 36415; 80048

== ENCOUNTER 2025-01-03 09:55 | Outpatient (RCR) | payer MEDICARE, OTHER, SELFPAY ==
[2025-01-03 13:09] LABS: Anion Gap 14 (5-15); BUN 24 mg/dL (4-19); BUN/Creat Ratio 19.7 RATIO (10-20); Calcium,Total 9.8 mg/dL (7.6-11.0); Carbon Dioxide 29.4 mmol/L (21.0-32.0); Chloride 95 mmol/L (98-108); EST Glomerular Filtration Rate 65 (>60); Glucose 154 mg/dL (70-99); Potassium 3.7 mmol/L (3.3-5.1); Sodium Level 139 mmol/L (133-145)
== END 2025-01-03 18:00 | disposition home or self-care (01) ==
LOC: LAB 09:55
PROVIDERS: PCP Family Medicine; Referring Provider Family Medicine; Visit Provider Family Medicine
DX: G25.81 Restless legs syndrome (principal)
CPT/HCPCS: 36415; 80048

== ENCOUNTER → 2025-01-10 | Outpatient (CLI) | payer MEDICARE, OTHER, SELFPAY ==
--- NOTE | 2025-01-10 07:53 | US_ITS ---
PROCEDURE: Abdominal ultrasound. 01/10/2025 REASON FOR EXAM: FATTY INFILTRATION TECHNIQUE: Ultrasound images of the upper abdomen were obtained. COMPARISON: No prior relevant study available. FINDINGS: The visualized portions of the pancreas show no specific abnormality. Segmentally visualized portions of the liver demonstrate coarse echotexture. No solid liver lesion. Portions of the liver are not well evaluated on this study. The gallbladder is sonographically unremarkable. Negative sonographic Doe's sign. The common duct measures 3 mm. The right kidney is 11.8 cm in length. Cortical-medullary differentiation is maintained. There is a complex partially exophytic lesion of the right kidney measuring 2.3 cm. This appears to contain an internal 5 mm calcification. US/Abdomen Limited IMPRESSION: Sonographically unremarkable gallbladder. Negative sonographic Doe's sign. Normal caliber common duct at 3 mm. Coarse liver echotexture suggesting fatty metamorphosis. No definite discrete liver lesion, although evaluation is limited on this study. No obstructive uropathy right kidney. There is a partially exophytic 2.3 cm mi ldly hypoechoic lesion of the right kidney, with internal debris in 5 mm internal calcification. This could represent a complex cyst with a partially solid lesion not excluded. Recommend short-term follow-up dedicated renal CT without and with intravenous contrast. Reading Location: [facility]
== END | disposition home or self-care (01) ==
LOC: US 07:51
PROVIDERS: PCP Family Medicine; Referring Provider Family Medicine; Visit Provider Family Medicine
DX: Z79.899 Other long term (current) drug therapy (principal)
CPT/HCPCS: 76705

== ENCOUNTER → 2025-02-04 | Outpatient (CLI) | payer MEDICARE, OTHER, SELFPAY ==
--- NOTE | 2025-02-04 13:45 | CT_ITS ---
PROCEDURE: CT ABD/PELVIS W/WO CONTRAST, 02/04/2025 REASON FOR EXAM: RENAL CYST TECHNIQUE: CT abdomen and pelvis was performed with and without IV contrast. Multiplanar reformats were generated. CONTRAST: Isovue-300 VOLUME: 99mL RADIATION DOSE SUMMARY: CTDlvol: 22.59+ 9.11+ 22.64+ 20.08+ 22.72+ 19.38 mGy DLP: 3059.39 mGycm One or more dose reduction techniques were used (e.g., Automated exposure control, adjustment of the mA and/or kV according to patient size, use of iterative reconstruction technique). COMPARISON: 01/10/2025 and prior FINDINGS: Lung bases: Mild atelectasis/scarring.. Liver: Steatosis. Spleen: Unremarkable. Gallbladder: Unremarkable. Pancreas: Unremarkable. Adrenals: Unremarkable. Kidneys: Mild symmetric nonspecific perinephric stranding. Ill-defined partially exophytic lateral RIGHT interpolar renal lesion of concern on previous ultrasound is difficult to discretely measure but approximates 2.1 x 1.4 x 1.4 cm with a punctate calcification along the superomedial aspect. This is hyperattenuating on noncontrast images, measuring 45 Hounsfield units. Attenuation is 62 Hounsfield units in the corticomedullary phase, 52 Hounsfield units in the nephrographic phase and 43 Hounsfield units in the delayed phase. This was also present on 06/27/2023 and measured fluid density at that time, measuring 2.9 x 1.4 x 1.6 cm. Additional 0.7 cm high-density lesion along the anterior RIGHT lower pole is too small to definitively characterize but likely to reflect a hemorrhagic or proteinaceous cyst. Bowel: Unremarkable. Normal caliber appendix. Lymph nodes: Unremarkable. Vasculature: Trace atherosclerosis. Peritoneum: Unremarkable. Bladder: Underdistended and suboptimally evaluated, grossly unremarkable. Reproductive Organs: Prostatomegaly. Body Wall: Tiny fat containing umbilical hernia.. Bones: Presumed degenerative sclerosis of the bilateral SI joints. Multilevel spondylosis.. CT/CT Abd/Pelvis W/WO Contrast IMPRESSION: 1. Slightly decreased size of the RIGHT renal lesion of concern since 3, measuring fluid density at that time, although demonstrating indeterminate enhancement versus pseudoenhancement of roughly 17 HU on the current exam. Given this, the lesion remains indeterminate with continued follow-up in 6-12 months recommended. [facility] renal protocol MRI with and without contrast (to include subtraction sequences) could provide additional diagnostic information, if there is no contraindication. 2. Diffuse hepatic steatosis. Correlate for clinical and laboratory evidence o f chronic liver disease. 3. Additional description as above. Reading Location: [id number]
== END | disposition home or self-care (01) ==
LOC: CT 13:45
PROVIDERS: PCP Family Medicine; Referring Provider Family Medicine; Visit Provider Family Medicine
DX: N28.1 Cyst of kidney, acquired (principal)
CPT/HCPCS: 74178; Q9967

== ENCOUNTER 2025-02-07 10:42 | Outpatient (RCR) | payer MEDICARE, OTHER, SELFPAY ==
[2025-02-07 12:21] LABS: Anion Gap 14 (5-15); BUN 22 mg/dL (4-19); BUN/Creat Ratio 18.1 RATIO (10-20); Calcium,Total 9.6 mg/dL (7.6-11.0); Carbon Dioxide 30.6 mmol/L (21.0-32.0); Chloride 95 mmol/L (98-108); Creatinine, Serum 1.19 mg/dL (0.70-1.20); EST Glomerular Filtration Rate 66 (>60); Glucose 146 mg/dL (70-99); Sodium Level 140 mmol/L (133-145)
== END 2025-02-07 18:00 | disposition home or self-care (01) ==
LOC: LAB 10:42
PROVIDERS: PCP Family Medicine; Referring Provider Family Medicine; Visit Provider Family Medicine
DX: G25.81 Restless legs syndrome (principal)
CPT/HCPCS: 36415; 80048

== ENCOUNTER → 2025-02-12 | Outpatient (CLI) | payer MEDICARE, OTHER, SELFPAY ==
[2025-02-12 14:10] LABS: Anion Gap 13 (5-15); BUN 21 mg/dL (4-19); BUN/Creat Ratio 19.6 RATIO (10-20); Calcium,Total 9.4 mg/dL (7.6-11.0); Carbon Dioxide 28.1 mmol/L (21.0-32.0); Chloride 99 mmol/L (98-108); Creatinine, Serum 1.09 mg/dL (0.70-1.20); EST Glomerular Filtration Rate 73 (>60); Glucose 152 mg/dL (70-99); Potassium 3.2 mmol/L (3.3-5.1); Sodium Level 140 mmol/L (133-145)
== END | disposition home or self-care (01) ==
LOC: MFPLAB 10:57
PROVIDERS: PCP Family Medicine; Referring Provider Family Medicine; Visit Provider Family Medicine
DX: G25.81 Restless legs syndrome (principal)
CPT/HCPCS: 36415; 80048

== ENCOUNTER → 2025-02-23 | Outpatient (CLI) | payer MEDICARE, OTHER, SELFPAY ==
[2025-02-23 13:35] LABS: Anion Gap 13 (5-15); BUN 23 mg/dL (4-19); Calcium,Total 9.4 mg/dL (7.6-11.0); Carbon Dioxide 27.1 mmol/L (21.0-32.0); Chloride 101 mmol/L (98-108); Creatinine, Serum 1.06 mg/dL (0.70-1.20); EST Glomerular Filtration Rate 76 (>60); Glucose 148 mg/dL (70-99); Magnesium 1.9 mg/dL (1.5-2.2); Potassium 3.5 mmol/L (3.3-5.1); Sodium Level 140 mmol/L (133-145)
== END | disposition home or self-care (01) ==
LOC: MFPLAB 10:25
PROVIDERS: PCP Family Medicine; Referring Provider Family Medicine; Visit Provider Family Medicine
DX: G25.81 Restless legs syndrome (principal)
CPT/HCPCS: 36415; 80048; 83735

== ENCOUNTER → 2025-02-26 | Outpatient (CLI) | payer MEDICARE, OTHER, SELFPAY ==
[2025-02-26 11:32] LABS: Anion Gap 10 (5-15); BUN 24 mg/dL (4-19); BUN/Creat Ratio 21.8 RATIO (10-20); CORTISOL AM 0.55 ug/dL (6.02-18.40); Calcium,Total 9.2 mg/dL (7.6-11.0); Carbon Dioxide 24.9 mmol/L (21.0-32.0); Chloride 105 mmol/L (98-108); Creatinine, Serum 1.08 mg/dL (0.70-1.20); EST Glomerular Filtration Rate 74 (>60); Glucose 134 mg/dL (70-99); Magnesium 2.1 mg/dL (1.5-2.2); Potassium 4.2 mmol/L (3.3-5.1); Sodium Level 140 mmol/L (133-145)
== END | disposition home or self-care (01) ==
LOC: LAB 07:15
PROVIDERS: PCP Family Medicine; Referring Provider Family Medicine; Visit Provider Family Medicine
DX: G25.81 Restless legs syndrome (principal); E24.9 Cushing's syndrome, unspecified
CPT/HCPCS: 36415; 80048; 82533; 83735

== ENCOUNTER → 2025-03-10 | Outpatient (CLI) | payer MEDICARE, OTHER, SELFPAY ==
--- NOTE | 2025-03-10 09:55 | RAD_ITS ---
PROCEDURE: CHEST PA AND LATERAL 03/10/2025 REASON FOR EXAM: ATYPICAL CHEST PAIN TECHNIQUE: Frontal and lateral views of the chest. COMPARISON: None FINDINGS: The lungs are clear. The heart borders mediastinum and pulmonary vascular pattern are normal. The upper abdominal bowel gas pattern is normal. There are no bony abnormalities. RAD/Chest PA and Lateral IMPRESSION: No evidence of acute cardiopulmonary pathology. Reading Location: [id number]
[2025-03-10 12:31] LABS: D-Dimer Quantitative (DVT/PE) 0.38 FEU/ug/m (0.27-0.49)
[2025-03-10 12:50] LABS: Anion Gap 13 (5-15); BUN 22 mg/dL (4-19); BUN/Creat Ratio 20.7 RATIO (10-20); Calcium,Total 9.2 mg/dL (7.6-11.0); Carbon Dioxide 26.6 mmol/L (21.0-32.0); Chloride 100 mmol/L (98-108); Creatinine, Serum 1.06 mg/dL (0.70-1.20); EST Glomerular Filtration Rate 76 (>60); Glucose 118 mg/dL (70-99); Potassium 3.1 mmol/L (3.3-5.1); Pro- Brain NATRIURETIC PEPTIDE < 36 pg/mL (<=900); Sodium Level 139 mmol/L (133-145); Troponin T High Sensitivity 17 ng/L (<=22)
[2025-03-11 14:09] LABS: Angiotensin Convert Enzyme 33 U/L (14-82)
== END | disposition home or self-care (01) ==
PROVIDERS: PCP Family Medicine; Referring Provider Family Medicine; Visit Provider Family Medicine
DX: R07.89 Other chest pain (principal); E27.9 Disorder of adrenal gland, unspecified; N18.2 Chronic kidney disease, stage 2 (mild)
CPT/HCPCS: 71046; 80048; 82164; 83880; 84484; 85379; 86140; 86141

== ENCOUNTER → 2025-03-31 | Outpatient (CLI) | payer MEDICARE, OTHER, SELFPAY ==
--- NOTE | 2025-03-31 10:25 | RAD_ITS ---
PROCEDURE: CHEST PA AND LATERAL 03/31/2025 REASON FOR EXAM: CHEST PAIN TECHNIQUE: CHEST PA AND LATERAL COMPARISON: Chest x-ray of 03/10/2025. RAD/Chest PA and Lateral IMPRESSION: Lungs appear clear of acute disease, and unchanged. No pleural effusion or pneumothorax is noted. The cardiomediastinal silhouette is stable, without evidence of cardiomegaly. Mild thoracic spine degenerative changes are noted. No evidence of acute cardiopulmonary disease. Reading Location: [place] [id number]
--- OUTSIDE RECORDS SUMMARY | 2025-03-31 21:33 | XMS RPT_ITS | CCD ---
Author Organization [facility] [place] [facility] Care Team Providers Care Sheet Rock Layer Name Role Phone Maura Linn Unavailable Unavailable Suzanne LOPEZ, Raul Farmer Unavailable Tony Kay MD Primary Care Provider Dr. Tony Kay Primary Care Provider [phone] Tony Kay Referring Provider 1([facility])[phone] Dr. Bulmaro Childers Attending Provider 1([facility])[phone] Dr. Jere Fields Attending Provider 1([facility])[phone] Jere Fields Referring Provider 1([facility])[phone] Susan Leo Attending Provider 1([facility])[phone] Herson RACK LOADER, RACK LOADER-Barb Dorsey Attending Provider Dr. Ben Emmanuel Attending Provider 1([facility])[phone] Tony Kay Primary Care Provider 1([facility])[phone] Tony Kay Referring Provider 1([facility])[phone] Dr. Tony Kay Referring Provider 1([facility])[phone] Susan Leo Attending Provider 1([facility])[phone] Herson RACK LOADER, RACK LOADER-Barb Dorsey Attending Provider Dr. Ben Emmanuel Attending Provider 1([facility])[phone] Tony Kay Primary Care Provider 1([facility])[phone] Susan Leo Referring Provider 1([facility])[phone] Dr. Susan Leo Other Provider 1([facility])[phone] Susan Leo Attending Provider 1([facility])[phone] Dr. Tony Kay Referring Provider Dr. Tony Kay Primary Care Provider Dr. Tony Kay Referring Provider Dr. Susan Leo Attending Provider [phone] Lien, Dr. Contreras Attending Provider Dr. Tony Kay Primary Care Provider Dr. Tony Kay Referring Provider Dr. Susan Leo Attending Provider Lien, Dr. Contreras Attending Provider [phone] Tony Kay Primary Care Provider Dr. Tony Kay Referring Provider Rahul LOPEZ, Tony A Primary Care Provider Rahul LOPEZ, Dr. Rios Primary Care Provider Rahul LOPEZ, Dr. Rios Attending Provider Rahul LOPEZ, Dr. Rios Referring Provider Rahul LOPEZ, Dr. Rios Primary Care Provider Rahul LOPEZ, Dr. Rios Attending Provider Rahul LOPEZ, Dr. Rios Referring Provider Rahul LOPEZ, Dr. Rios Primary Care Provider Rahul LOPEZ, Dr. Rios Attending Provider Rahul LOPEZ, Dr. Rios Referring Provider Rahul LOPEZ, Dr. Rios Primary Care Provider Rahul LOPEZ, Dr. Rios Attending Provider Rahul LOPEZ, Dr. Rios Referring Provider [phone] BENDARAM, MILTON VERDIN Referring Unavaila zoey KAY, TONY A Primary Care Unavailable BENDSAM, MILTON VERDIN Attending Unavaila TONY Clarke A Primary Care Unavailable BENDARAM, MILTON VERDIN Referring Unavaila zoey KAY, TONY A Primary Care Unavailable DREW RHODES Attending Unavailable BENDARAM, MILTON VERDIN Referring Unavaila ble KAY, TONY A Primary Care Unavailable KIM ROSE Attending Unavailable KAY, TONY A Primary Care Unavailable MILTON VILLANUEVA Attending Unavaila ble SELF Referring Unavailable KAY, TONY A Primary Care Unavailable Kay, Tony Referring Unavailable Kay, Tony Primary Care Unavailable Kay, Tony Attending Unavailable Kay, Tony Primary Care Unavailable Kay, Tony Referring Unavailable Kay, Tony Attending Unavailable Kay, Tony Referring Unavailable Kay, Tony Primary Care Unavailable Kay, Tony Attending Unavailable Kay, Tony Referring Unavailable Kay, Tony Attending Unavailable Kay, Tony Primary Care Unavailable Kay, Tony Referring Unavailable Kay, Tony Primary Care Unavailable Kay, Tony Attending Unavailable Kay, Tony Primary Care Unavailable Kay, Tony Referring Unavailable Kay, Tony Attending Unavailable Kay, Tony Primary Care Unavailable Kay, Tony Referring Unavailable Kay, Tony Attending Unavailable Kay, Tony Primary Care Unavailable Kay, Tony Referring Unavailable Kay, Otny Attending Unavailable Friend, Ben Consulting Unavailable Kay, Tony Referring Unavailable Kay, Tony Primary Care Unavailable Friend, Ben Attending Unavailable Kay, Tony Referring Unavailable Friend, Ben Attending Unavailable Kay, Tony Primary Care Unavailable Kay, Tony Referring Unavailable Kay, Tony Attending Unavailable Kay, Tony Primary Care Unavailable Kay, Tony Referring Unavailable Kay, Tony Attending Unavailable Kay, Tony Referring Unavailable Friend, Ben Attending Unavailable Kay, Tony Primary Care Unavailable Kay, Tony Primary Care Unavailable Stephen Alvarez Attending Unavailable Kay, Tony Attending Unavailable Kay, Tony Referring Unavailable Kay, Tony Primary Care Unavailable Kay, Tony Attending Unavailable Kay, Tony Referring Unavailable Kay, Tony Primary Care Unavailable Kay, Tony Attending Unavailable Kay, Tony Referring Unavailable Kay, Tony Primary Care Unavailable Kay, Tony Primary Care Unavailable Kay, Tony Referring Unavailable Kay, Tony Attending Unavailable Kay, Tony Referring Unavailable Kay, Tony Primary Care Unavailable Friend, Ben Attending Unavailable Kay, Tony Referring Unavailable Kay, Tony Attending Unavailable Kay, Tony Primary Care Unavailable Allergies Allergy Classification Reported Allergen(s) Allergy Type Date of Onset Reaction(s) Facility (20 sources) aspirin; Translations: [ASPIRIN] drug allergy 6 Rash [facility] Work Phone: (2 sources) penicillin v drug allergy 7 [facility] Work Phone: (8 sources) sulfaSALAzine; Translations: [SULFASALAZINE] drug allergy 7 Other: See Comments [facility] Work Phone: (8 sources) Penicillins; Translations: [PENICILLINS] Propensity to adverse reactions 6 Rash [facility] Work Phone: (10 sources) Sulfamethoxazole ; Translations: [SULFAMETHOXAZOL E] Drug Allergy 2 Other: See Comments [facility] (20 sources) Penicillins Allergy to substance 8 [facility] (20 sources) Sulfonamides (Antibiotic) Propensity to adverse reactions 8 [facility] (2 sources) Penicillins Propensity to adverse reactions 6 Rash [facility] (1 source) Aspirin Drug Allergy 4 [facility] (1 source) Penicillins Drug allergy (disorder) 4 [facility] (1 source) Sulfonamides (Antibiotic) Drug allergy (disorder) 4 [facility] Medications Current Medications Medication Drug Class(es) Dates Sig (Normalized) Sig (Original) Alpha Lipoic Acid (20 sources) Start: 05-25-2017 take 300 mg by mouth once daily Alpha Lipoic Acid Active 300 mg PO DAILY May 25, 2017 12:00am Start: 05-25-2017 take 300 mg by mouth once isha y Alpha Lipoic Acid Active 300 mg PO DAILY May 24, 2017 11:00pm Start: 05-25-2017 take 300 mg by mouth twice jono ly Alpha Lipoic Acid Active 300 MG PO TWICE A DAY May 24, 2017 11:00pm Start: 05-25-2017 take 300 mg by mouth twice jono ly Alpha Lipoic Acid Active 300 MG PO TWICE A DAY May 25, 2017 12:00am ALPHA LIPOIC ACID ORAL (9 sources) take 600 mg by mouth once daily ALPHA LIPOIC ACID ORAL Take 600 mg by mouth once daily. Active take 600 mg by mouth once daily ALPHA LIPOIC ACID ORAL Take 600 mg by mouth once daily. 0 Active Comment on above: Take 600 mg by mouth once daily. ARGININE HCL, L-ARGININE, ORAL (9 sources) take 1800 mg by mouth once daily ARGININE HCL, L-ARGININE, ORAL Take 1,800 mg by mouth once daily. Active take 1800 mg by mouth once daily ARGININE HCL, L-ARGININE, ORAL Take 1,800 mg by mouth once daily. 0 Active Comment on above: Take 1,800 mg by phyllis th once daily. benoxinate hydrochloride 4 mg/ml / fluorescein sodium 2.5 mg/ml ophthalmic solution (1 source) Diagnostic Dye Start: 3 End: 3 fluorescein-benoxi tigist 0.25-0.4 % 1 Drop (FLURESS) 12 hr buPROPion hydrochloride 150 mg extended release oral tablet (9 sources) Aminoketone Start: 4 take 1 tablet by mouth once daily in the morning Bupropion Hcl (Wellbutrin Sr) 150 mg tablet sustained-release 12 hr Active 150 mg PO EVERY MORNING July 02, 2024 12:00am Calcium Carbonate / vitamin D3 (9 sources) take 4000 [IU] by mouth once daily CALCIUM CARBONATE/VITAMIN D3 (VITAMIN D-3 ORAL) Take 4,000 Units by mouth once daily. Active take 4000 [IU] by mouth once jono ly CALCIUM CARBONATE/VITAMIN D3 (VITAMIN D-3 ORAL) Take 4,000 Units by mouth once daily. 0 Active Comment on above: Take 4,000 Units by mouth once daily. cholecalciferol 0.05 mg oral capsule (20 sources) Vitamin D Start: 05-29-20 take 1 capsule by mouth once daily Cholecalciferol (Vitamin D3) (Vitamin D3) 50 mcg (2,000 unit) capsule Active 2000 U PO DAILY May 29, 2023 1:24pm Start: 05-25-2017 End: 05-29-2023 take 1 capsule by mouth twice daily Cholecalciferol (Vitamin D3) (Vitamin D3) 2,000 UNIT capsule Discontinued 2000 U PO TWICE A DAY May 25, 2017 12:00am May 29, 2023 1:26pm Start: 05-24-2017 take 1 tablet by phyllis th once daily VITAMIN D3 1000 UNIT CAPS One tablet by mouth daily CHOLECALCIFEROL [id number] Raul Palacios MD cholecalciferol, vitamin D3, (VITAMIN D3 ORAL) (3 sources) cholecalciferol, vitamin D3, (VITAMIN D3 ORAL) Take by mouth once daily. Active CHONDROITIN SULFATE A ORAL (6 sources) take 1500 mg by mouth once daily CHONDROITIN SULFATE A ORAL Take 1,500 mg by mouth once daily. Active take 1500 mg by mouth once daily CHONDROITIN SULFATE A ORAL Take 1,500 mg by mouth once daily. 0 Active Comment on above: Take 1,500 mg by phyllis th once daily. COENZYME [id number] ORAL (9 sources) take 600 mg by mouth twice daily COENZYME B12-F-NUEYSZIUP ORAL Take 600 mg by mouth twice daily. Active take 600 mg by mouth twice daily COENZYME [id number]-K-[id number] ORAL Take 600 mg by mouth twice daily. 0 Active Comment on above: Take 600 mg by mouth twice daily. CPAP (9 sources) CPAP daily at be dtime. Active CPAP daily at be dtime. 0 Active Comment on above: daily at bedtime. doxepin 6 mg oral tablet (5 sources) Tricyclic Antidepressant Doxepin 6 mg tab Active erythromycin 0.005 mg/mg ophthalmic ointment (20 sources) Macrolide, Macrolide Antimicrobial Start: 02-22-2023 End: 05-29-2023 Erythromycin 5 mg/gram (0.5 %) ointment Active 1 NMA OPHTHALMIC DAILY as needed for unkown May 29, 2023 1:25pm Start: 09-12-2022 End: 11-10-2022 erythromycin (ROMYCIN) 5 mg/ gram (0.5 %) ophthalmic ointment Use 1 application in both eyes daily at bedtime. 3.5 g 3 09/12/2022 11/10/2022 Discontinued (Side Effects) Comment on above: Use 1 application in both eyes daily at bedtime. ferrous sulfate 325 mg oral tablet (5 sources) ferrous sulfate (IRON) 325 mg (65 mg iron) tablet Active furosemide 40 mg oral tablet (20 sources) Loop Diuretic Start: 05-25-2017 take 1 tablet by mouth once daily Furosemide 40 MG tablet Active 40 mg PO DAILY May 25, 2017 12:00am Start: 05-24-2017 take 1 tablet by phyllis th three times daily FUROSEMIDE 40 MG TABS One tablet by mouth three times daily FUROSEMIDE [id number] Raul Palacios MD Comment on above: Take 40 mg by mouth once daily. gabapentin 300 mg oral capsule (20 sources) Anti-epileptic Agent Start: 05-24-2017 take 1 capsule by mouth at bedtime Gabapentin (Neurontin) 300 MG capsule Active 300 mg PO AT BEDTIME May 25, 2017 12:00am take 3 tablets by mouth once jono ly Gabapentin 100 mg tab Take 300 mg by mouth once daily. Active Comment on above: Take 1 tablet by phyllis th once daily. hydroCHLOROthiazide 25 mg / triamterene 37.5 mg oral capsule (20 sources) Potassium-sparing Diuretic, Thiazide Diuretic Start: 05-29-2023 Triamterene-Hydroch lorothiazid 37.5-25 mg capsule Active 1 NMA PO DAILY May 29, 2023 12:00am Start: 05-29-2023 take 1 capsule by mouth once daily Triamterene-Hydrochlorothiazid Active 1 CAP PO DAILY May 29, 2023 12:00am triamterene-hydr oCHLOROthiazide (MAXZIDE-25) 37.5-25 mg per tablet Active krill oil 500 mg oral capsule (20 sources) Start: 05-29-2023 take 1 capsule by mouth once daily Krill Oil 500 mg capsule Active 500 mg PO DAILY May 29, 2023 12:00am L.Acidoph, Paracasei,B. Lactis (17 sources) Start: 05-25-2017 L.Acidoph, Paracasei,B. Lactis Active 1 EACH PO DAILY May 24, 2017 11:00pm Start: 05-25-2017 L.Acidoph, Par acasei,B. Lactis Active 1 EACH PO DAILY May 25, 2017 12:00am L.Acidoph,Paracasei,B.Animal is 1 EACH capsule (9 sources) Start: 05-25-2017 take 1 capsule by mouth once daily L.Acidoph,Paracasei,B.Animalis 1 EACH capsule Active 1 NMA PO DAILY May 25, 2017 12:00am Start: 05-25-2017 take 1 capsule by mouth once daily L.Acidoph,Paracasei,B.Animalis 1 EACH ca psule Active 1 NMA PO DAILY May 24, 2017 11:00pm Lactobacillus acidophilus (3 sources) Lactobacillus acidophilus (PROBIOTIC ORAL) Take by mouth once daily. Active levOCARNitine (9 sources) Carnitine Analog take 1000 mg by mouth twice daily LEVOCARNITINE (CARNITINE ORAL) Take 1,000 mg by mouth twice daily. Active take 1000 mg by mouth twice isha y LEVOCARNITINE (CARNITINE ORAL) Take 1,000 mg by mouth twice daily. 0 Active Comment on above: Take 1,000 mg by phyllis th twice daily. LORazepam 1 mg oral tablet (20 sources) Benzodiazepine Start: 3 take 1 tablet by mouth once daily as needed for anxiety Lorazepam (Ativan) 1 mg tablet Active 1 mg PO DAILY as needed for anxiety February 22, 2023 12:00am Start: 07-13-2015 take 1 tablet by phyllis th every six hours as needed LORazepam (ATIVAN) 1 mg tablet Take 1 mg by mouth every 6 hours as needed. 0 07/13/2015 Active Comment on above: Take 1 tablet by phyllis th as directed. Take 1 mg by mouth e very 6 hours as needed. magnesium oxide 250 mg oral tablet (20 sources) Start: 7 take 1 tablet by mouth twice daily Magnesium Oxide 250 MG tablet Active 250 mg PO TWICE A DAY May 25, 2017 12:00am metOLazone 5 mg oral tablet (3 sources) Thiazide-like Diuretic Start: 5 take 1 tablet by mouth once daily metOLazone (ZAROXOLYN) 5 mg tablet Take 5 mg by mouth once daily. 11/14/2024 Active MULTIVITAMIN TAB (9 sources) Start: 6 take 1 tablet by mouth once daily MULTIVITAMIN TAB Take one(1) tablet daily by mouth 0 11/07/2005 Active Comment on above: Take one(1) tablet d aily by mouth OMEGA 3 550 MG CAP (9 sources) Start: 6 take 1 tablet by mouth once daily OMEGA 3 550 MG CAP Take one(1) tablet daily by mouth 0 11/07/2005 Active Comment on above: Take one(1) tablet d aily by mouth phenylephrine hydrochloride 25 mg/ml ophthalmic solution (3 sources) alpha-1 Adrenergic Agonist Start: 3 End: 3 PHENYLephrine 2.5 % 1 Drop (AK-DILATE, KYLE-SYNEPHRINE) Start: 11-01-2022 End: 11-02-2022 PHENYLephrine 2.5 % 1 Drop ( AK-DILATE, KYLE-SYNEPHRINE) Start: 09-12-2022 End: 09-13-2022 PHENYLephrine 2.5 % 1 Drop ( AK-DILATE, KYLE-SYNEPHRINE) microencapsulated potassium chloride 20 meq extended release oral tablet (14 sources) Start: 11-08-2024 take 4 tablets by mouth three times daily potassium chloride ER (KLOR-CON) 20 mEq tablet Take 80 mEq by mouth three times a day. 11/08/2024 Active Start: 06-11-2024 take 2 tablets by [facility] twice daily Potassium Chloride 20 mEq tablet,ER particles/crystals Active 40 meq PO TWICE A DAY June 11, 2024 12:00am End: 11-10-2022 take 8 mEq by mouth once daily potassium chloride SR (MICRO-K) 8 mEq cpER Take 8 mEq by mouth once daily. 0 11/10/2022 Discontinued (Changing Therapy/Dosage Form) Comment on above: Take 8 mEq by mouth once daily. proparacaine hydrochloride 5 mg/ml ophthalmic solution (5 sources) Local Anesthetic Start: 10-30-2024 End: 10-31-2024 proparacaine 0.5 % 1 Drop (ALCAINE) Start: 10-30-2024 End: 10-31-2024 1 Drop, BOTH EYES, DIRECT ED, Starting on Sun10/30/24 at 1530, Until Sun10/31/24 at 0329, Administer for pneumo tonometry, tonopen tonometry, or pachymetry. In the event of a proparacaine shortage, administer tetracaine 0.5% ophthalmic drops 1 drop in the left eye as directed for pneumo tonometry, tonopen tonometry, or pachymetry Start: 11-10-2022 End: 11-11-2022 proparacaine 0.5 % 1 Drop (A LCAINE) Start: 11-01-2022 End: 11-02-2022 proparacaine 0.5 % 1 Drop (A LCAINE) Start: 09-12-2022 End: 09-13-2022 proparacaine 0.5 % 1 Drop (A LCAINE) Saccharomyces boulardii (3 sources) Saccharomyces martin ulardii (FLORASTOR ORAL) Take by mouth once daily. Active tropicamide 10 mg/ml ophthalmic solution (5 sources) Anticholinergic Start: 10-30-2024 End: 10-31-2024 tropicamide 1 % 1 Drop (MYDRIACYL) Start: 10-30-2024 End: 10-31-2024 1 Drop, BOTH EYES, DIRECT ED, Starting on Sun10/30/24 at 1530, Until Sun10/31/24 at 0329, Administer for dilation Start: 11-10-2022 End: 11-11-2022 tropicamide 1 % 1 Drop (MYDR IACYL) Start: 11-01-2022 End: 11-02-2022 tropicamide 1 % 1 Drop (MYDR IACYL) Start: 09-12-2022 End: 09-13-2022 tropicamide 1 % 1 Drop (MYDR IACYL) vitamin b12 5 mg disintegrating oral tablet (20 sources) Vitamin B12 Start: 05-25-2017 take 1 tablet by mouth once daily Cyanocobalamin (Vitamin B-12) 5,000 MCG tablet,disintegrating Active 5000 ug PO DAILY May 25, 2017 12:00am Start: 05-24-2017 take 1 tablet by phyllis once daily B-12 5000 MCG CAPS One tablet by mouth daily CYANOCOBALAMIN [id number] Raul Palacios MD cyanocobalamin, vitamin B-12, 5,000 mcg/mL drop Dissolve 5,000 mcg under the tongue. Active Comment on above: Dissolve 5,000 mcg u nder the tongue. zinc gluconate 50 mg oral tablet (9 sources) Start: 06-11-2024 take 1 tablet by mouth once daily Zinc Gluconate 50 mg tablet Active 50 mg PO DAILY June 11, 2024 12:00am zinc sulfate 220 mg oral capsule (5 sources) zinc sulfate (ZINC-220) 220 mg (50 mg zinc) capsule Active Completed/Discontinued Medications Medication Drug Class(es) Dates Sig (Normalized) Sig (Original) anastrozole 1 mg oral tablet (6 sources) Aromatase Inhibitor Start: 05-24-2017 End: 11-10-2022 take 1 tablet by mouth once daily ANASTROZOLE 1 MG TABS One tablet by mouth daily ANASTROZOLE [id number] Raul Palacios MD Comment on above: Take 1 mg by mouth o nce daily. arginine 500 mg oral tablet (20 sources) Start: 05-25-2017 End: 05-30-2024 take 1 tablet by mouth twice daily Arginine (L-Arginine) 500 MG tablet Discontinued 900 mg PO TWICE A DAY May 25, 2017 12:00am May 30, 2024 10:59am Start: 05-25-2017 take 900 mg by mouth twice daily Arginine (L-Arginine) Active 900 MG PO TWICE A DAY May 25, 2017 12:00am Start: 05-24-2017 take 1 tablet by phyllis th once daily L-ARGININE HCL POWD One tablet by mouth daily ARGININE HCL [id number] Raul Palacios MD CHONDROITIN SULFATE A (CHONDROITIN [...] once daily. chondroitin sulfates (2 sources) Start: 05-24-2017 take 1 tablet by mouth once daily CHONDROITIN SULFATE CAPS One tablet by mouth daily CHONDROITIN SULFATE A CAPS [id number] Raul Palacios MD doxycycline hyclate 100 mg oral capsule (13 sources) Tetracycline-cla ss Drug Start: 11-26-2023 End: 05-30-2024 take 1 capsule by mouth twice daily Doxycycline Hyclate 100 mg capsule Discontinued 100 mg PO TWICE A DAY 60 November 26, 2023 1:00am May 30, 2024 10:59am fish oil (1 source) Start: 05-24-2017 take 1 tablet by mouth once daily [facility] FISH OIL CAPS One tablet by mouth daily OMEGA-3 FATTY ACIDS CAPS [id number] Raul Palacios MD glucosamine sulfate 750 mg oral tablet (20 sources) Start: 05-25-2017 End: 05-30-2024 take 2 tablets by mouth twice daily Glucosamine Sulfate 750 MG tablet Discontinued 1500 mg PO TWICE A DAY May 25, 2017 12:00am May 30, 2024 10:59am Start: 05-25-2017 take 1500 mg by mout h twice daily Glucosamine Sulfate Active 1500 MG PO TWICE A DAY May 25, 2017 12:00am Start: 05-24-2017 take 1 tablet by phyllis th once daily [facility] GLUCOSAMINE SULFATE CAPS One tablet by mouth daily GLUCOSAMINE SULFATE CAPS [id number] Raul Palacios MD take 1500 mg by mout h once daily GLUCOSAMINE HCL ORAL Take 1,500 mg by mouth once daily. Active Comment on above: Take 1,500 mg by phyllis th once daily. lysine 500 mg oral tablet (20 sources) Start: 05-29-2023 End: 05-30-2024 take 1 tablet by mouth twice daily Lysine (L-Lysine) 500 mg tablet Discontinued 500 mg PO TWICE A DAY May 29, 2023 12:00am May 30, 2024 10:59am Start: 05-25-2017 End: 05-29-2023 take 1 tablet by mouth twice daily Lysine 1,000 MG tablet Discontinued 1000 mg PO TWICE A DAY May 25, 2017 12:00am May 29, 2023 1:25pm Start: 05-24-2017 take 1 tablet by phyllis th once daily LYSINE TABS One tablet by mouth daily LYSINE TABS [id number] Raul Palacios MD take 2000 mg by mout h once daily LYSINE ORAL Take 2,000 mg by mouth once daily. Active take 2000 mg by mout h once daily LYSINE ORAL Take 2,000 mg by mouth once daily. 0 Active Comment on above: Take 2,000 mg by phyllis th once daily. magnesium (11 sources) Start: 05-24-2017 take 1 tablet by mouth once daily CHELATED MAGNESIUM TABS One tablet by mouth daily MAGNESIUM TABS [id number] Raul Palacios MD take 1 tablet by mouth twice jono ly Magnesium 250 mg tab Take 250 mg by mouth twice daily. Active take 1 tablet by mouth twice jono [...] One tablet by mouth daily MULTIPLE VITAMINS-MINERALS [id number] Raul Palacios MD MULTIPLE VITAMINS-MINERALS (1 source) Start: 2016 take 1 tablet by mouth once daily MULTIVITAMIN ADULT TABS One tablet by mouth daily MULTIPLE VITAMINS-MINERALS [id number] Raul Palacios MD Multivitamin (Multiple Vitamins) 1 EACH tablet (20 sources) Start: 2016 End: 2023 take 1 tablet by mouth once daily Multivitamin (Multiple Vitamins) 1 EACH tablet Discontinued 1 NMA PO DAILY May 25, 2017 12:00am May 30, 2024 11:00am Start: 05-25-2017 End: 05-30-2024 take 1 tablet by mouth once daily Multivitamin (Multiple Vitamins) 1 EACH tablet Discontinued 1 NMA PO DAILY May 24, 2017 11:00pm May 30, 2024 10:00am Start: 05-25-2017 take 1 tablet by phyllis th once daily Multivitamin (Multiple Vitamins) 1 EACH tablet Active 1 EACH PO DAILY May 24, 2017 11:00pm Start: 05-25-2017 take 1 tablet by phyllis th once daily Multivitamin (Multiple Vitamins) 1 EACH tablet Active 1 EACH PO DAILY May 25, 2017 12:00am Story 4-Pyd-Fyb-Fish Oil (Fish Oil 1,400 Mg Softgel) 1 EACH capsule,delayed release(DR/EC) (20 sources) Start: 05-25-2017 End: 05-29-2023 take 1 capsule by mouth once daily Story 0-Cci-Amu-Fish Oil (Fish Oil 1,400 Mg Softgel) 1 EACH capsule,delayed release(DR/EC) Discontinued 1 NMA PO DAILY May 25, 2017 12:00am May 29, 2023 1:25pm Start: 05-25-2017 End: 05-29-2023 take 1 capsule by mouth once daily Story 3-Sjn-Kqw-Fish Oil (Fish Oil 1,400 Mg Softgel) 1 EACH capsule,delayed release(DR/EC) Discontinued 1 NMA PO DAILY May 24, 2017 11:00pm May 29, 2023 12:25pm Start: 05-25-2017 End: 05-29-2023 take 1 capsule by mouth once daily Story 3-Xoa-Tsp-Fish Oil (Fish Oil 1,400 Mg Softgel) 1 EACH capsule,delayed release(DR/EC) Discontinued 1 EACH PO DAILY May 24, 2017 11:00pm May 29, 2023 12:25pm Start: 05-25-2017 End: 05-29-2023 take 1 capsule by mouth once daily Story 4-Zys-Lao-Fish Oil (Fish Oil 1,400 Mg Softgel) 1 EACH capsule,delayed release(DR/EC) Discontinued 1 EACH PO DAILY May 25, 2017 12:00am May 29, 2023 1:25pm Start: 05-25-2017 take 1 capsule by [facility] once daily Story 8-Mcm-Mhg-Fish Oil (Fish Oil 1,400 Mg Softgel) 1 EACH capsule,delayed release(DR/EC) Active 1 EACH PO DAILY May 25, 2017 12:00am OMEGA-3 FATTY ACIDS CAPS (1 source) Start: 05-24-2017 take 1 tablet by mouth once daily [facility] FISH OIL CAPS One tablet by mouth daily OMEGA-3 FATTY ACIDS CAPS [id number] Raul Palacios MD polyethylene glycol 3350 452043 mg / potassium chloride 2820 mg / sodium bicarbonate 6360 mg / sodium chloride 5530 mg / sodium sulfate 97072 mg powder for oral solution (2 sources) Osmotic Laxative Start: 05-24-2017 GOLYTELY 227. 1 GM SOLR take as directed PEG 3648-[id number]-XGPPK-NAC L-NASULF [id number] Raul Palacios MD Start: 05-24-2017 GOLYTELY 227.1 GM SOLR take as directed PEG 1793-PPL-BFGSA-NACL-NASULF [id number] Raul Palacios MD polyethylene glycol 400 4 [...] One tablet by mouth daily POTASSIUM CHLORIDE [id number] Raul Palacios MD Start: 05-24-2017 take 1 tablet by phyllis th once daily POTASSIUM CHLORIDE ER 8 MEQ CR-TABS One tablet by mouth daily POTASSIUM CHLORIDE [id number] Raul Palacios MD potassium citrate 10 meq extended release oral tablet (20 sources) Start: 05-29-2023 End: 06-11-2024 take 1 tablet by mouth four times daily Potassium Citrate 10 mEq (1,080 mg) tablet extended release Discontinued 10 meq PO .qid May 29, 2023 1:12pm June 11, 2024 8:43am Start: 02-22-2023 End: 05-29-2023 take 1 tablet by mouth three times daily Potassium Citrate 10 mEq (1,080 mg) tablet extended release Discontinued 10 meq PO THREE TIMES A DAY February 22, 2023 12:00am May 29, 2023 1:13pm potassium citrat e ER (UROCIT-K) 10 mEq (1,080 mg) TbER Indications: Unilateral vestibular schwannoma (HCC) , TONI (obstructive sleep apnea) Take 20 mEq by mouth two times a day. Active take 10 mEq by mouth once potass ium citrate ER (UROCIT-K) 10 mEq (1,080 mg) TbER Indications: Unilateral vestibular schwannoma (HCC) , TONI (obstructive sleep apnea) Take 1,080 mg by mouth one time only. 0 Active Comment on above: Take 1,080 mg by phyllis one time only. prazosin 1 mg oral capsule (9 sources) alpha-Adrenergic Ellie Start: 4 End: take 1 capsule by mouth at bedtime Prazosin 1 mg capsule Discontinued 1 mg PO AT BEDTIME May 30, 2024 12:00am June 11, 2024 8:43am PROBIOTIC PRODUCT (1 source) Start: 7 [facility] PROBIOTIC PRODUCT [id number] Raul Palacios MD PROBIOTIC PRODUCT (1 source) Start: 7 [facility] [employer] PROBIOTIC PRODUCT [id number] Raul Palacios MD thioctic acid 100 mg oral capsule (2 sources) Start: 7 take 1 tablet by mouth once daily ALPHA-LIPOIC ACID 100 MG CAPS One tablet by mouth daily ALPHA-LIPOIC ACID [id number] Raul Palacios MD ubidecarenone 100 mg oral capsule (20 sources) Start: 3 End: 3 take 10 capsules by mouth once daily Coenzyme Q10 100 mg capsule Discontinued 100 mg PO DAILY February 22, 2023 12:00am May 29, 2023 1:25pm Problems Active Problems Problem Classification Problem Date Documented Da te Episodic/Chronic Anxiety disorders (11 sources) Claustrophobia; Translations: [Claustrophobia] Onset: 05-24-2017 05-24-2017 Chronic Blindness and vision defects (4 sources) Blurring of visual image; Translations: [Other visual disturbances] Episodic Cancer of brain and nervous system (2 sources) Malignant neoplasm of right acoustic nerve; 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] Onset: 05-24-2017 05-24-2017 Chronic Cancer of head and neck (11 sources) Carcinoma in situ of larynx; Translations: [Carcinoma in situ of larynx] Onset: 05-24-2017 05-24-2017 Chronic Cataract (20 sources) Bilateral pseudophakia; Translations: [Presence of intraocular lens] Onset: 09-12-2022 Chronic Chronic kidney disease (3 sources) Chronic kidney disease stage 3A ; Translations: [CKD stage 3a, GFR 45-59 ml/min (HCC)] Onset: 11-13-2024 11-28-2024 Chronic Chronic kidney disease (3 sources) Chronic kidney disease; Translations: [Stage 3a chronic kidney disease (HCC)] Onset: 12-17-2024 Disorders of lipid metabolism (2 sources) Hyperlipidemia; Translations: [Hyperlipidemia, unspecified] Onset: 05-24-2017 05-24-2017 Chronic Diverticulosis and diverticulitis (20 sources) Diverticulitis; Translations: [Diverticulitis of intestine, part unspecified, without perforation or abscess without bleeding] Onset: 05-24-2017 05-24-2017 Chronic Esophageal disorders (11 sources) Stricture of esophagus; Translations: [Esophageal obstruction] Onset: 05-24-2017 05-24-2017 Chronic Essential hypertension (5 sources) Hypertensive disorder; Translations: [Essential (primary) hypertension] Onset: 05-24-2017 05-24-2017 Chronic Genitourinary congenital anomalies (9 sources) Multiple congenital cysts of kidney; Translations: [Congenital multiple renal cysts] Onset: 05-01-2016 05-01-2016 Chronic Hemorrhoids (11 sources) Internal hemorrhoids; Translations: [Hemorrhoids] Onset: 05-24-2017 05-24-2017 Episodic Neoplasms of unspecified nature or uncertain behavior (20 sources) Neoplasm of uncertain behavior of skin; Translations: [Neoplasm of uncertain behavior of skin] 05-29-2023 Episodic Nonspecific chest pain (1 source) Other chest pain; Translations: [Other chest pain] Onset: 03-14-2025 Episodic Other aftercare (1 source) Other terminal block assembler (current) drug therapy; Translations: [Other usp (current) drug therapy] Onset: 01-13-2025 Episodic Other and unspecified benign neoplasm (9 sources) Benign neoplasm of cranial nerve; Translations: [Benign neoplasm of cranial nerves] Onset: 06-08-2015 06-08-2015 Chronic Other circulatory disease (11 sources) Raynaud's phenomenon ; Translations: [Raynaud's syndrome without gangrene] Onset: 05-24-2017 05-24-2017 Chronic Other congenital anomalies (2 sources) Congenital pes planus; Translations: [Congenital pes planus, unspecified foot] Onset: 05-24-2017 05-24-2017 Chronic Other diseases of kidney and ureters (1 source) Cyst of kidney, acquired; Translations: [Cyst of kidney, acquired] Onset: 02-07-2025 Episodic Other diseases of veins and lymphatics (2 sources) Lymphedema; Translations: [Lymphedema, not elsewhere classified] Onset: 05-24-2017 05-24-2017 Chronic Other eye disorders (3 sources) Tear film insufficiency; Translations: [Dry eye syndrome of bilateral lacrimal glands] Episodic Other eye disorders (3 sources) Hypertropia of left eye; Translations: [Vertical strabismus, left eye] Episodic Other eye disorders (3 sources) 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; Translations: [Monocular exotropia with other noncomitancies, left eye] Episodic Other gastrointestinal disorders (18 sources) Diarrhea; Translations: [Diarrhea, unspecified] 06-01-2023 Episodic Other gastrointestinal disorders (8 sources) Diarrhea, unspecified; Translations: [Diarrhea] 06-01-2023 Episodic Other hereditary and degenerative nervous system conditions (11 sources) Restless legs; Translations: [Restless legs syndrome] Onset: 05-24-2017 05-24-2017 Chronic Other hereditary and degenerative nervous system conditions (1 source) Restless legs syndrome; Translations: [Restless legs syndrome] Onset: 03-03-2025 Chronic Other nervous system disorders (2 sources) Meralgia paresthetica; Translations: [Meralgia paresthetica, left lower limb] Onset: 05-24-2017 05-24-2017 Chronic Other non-traumatic joint disorders (2 sources) Arthropathy of lumbar facet joint; Translations: [Unspecified inflammatory spondylopathy, lumbar region] Onset: 05-24-2017 05-24-2017 Chronic Other nutritional; endocrine; and metabolic disorders (9 sources) Metabolic syndrome X; Translations: [Metabolic syndrome] Onset: 01-10-2008 01-10-2008 Chronic Other screening for suspected conditions (not mental disorders or infectious disease) (3 sources) Decreased cortisol level; Translations: [Other specified abnormal findings of blood chemistry] Onset: 01-02-2025 11-28-2024 Episodic Other skin disorders (18 sources) Keloid scar; Translations: [Hypertrophic scar] 05-29-2023 Episodic Other skin disorders (8 sources) Hypertrophic scar; Translations: [Keloid scar] 05-29-2023 Episodic Other skin disorders (16 sources) Epidermoid cyst; Translations: [Epidermal cyst] 07-31-2023 Episodic Other skin disorders (7 sources) Epidermal cyst; Translations: [Sebaceous cyst] 07-31-2023 Episodic Unclassified (11 sources) Sleep apnea; Translations: [Sleep apnea, unspecified] Onset: 05-24-2017 05-24-2017 Chronic Past or Other Problems Problem Classification Problem Date Documented Da te Episodic/Chronic Abdominal pain (5 sources) Abdominal wall pain; Translations: [Abdominal pain] Onset: 7 05-24-2017 Episodic Calculus of urinary tract (9 sources) Kidney stone; Translations: [Calculus of kidney] Onset: 6 05-01-2016 Episodic Deficiency and other anemia (1 source) Anemia, unspecified; Translations: [Anemia, unspecified] Onset: 4 Episodic Gastrointestinal hemorrhage (9 sources) Lower gastrointestinal hemorrhage; Translations: [Gastrointestinal hemorrhage, unspecified] Onset: 2 11-01-2011 Episodic Other and unspecified benign neoplasm (2 sources) Benign neoplasm of testis; Translations: [Benign neoplasm of unspecified testis] Onset: 7 05-24-2017 Episodic Other connective tissue disease (14 sources) Radial styloid tenosynovitis; Translations: [Muscle pain] [...] Onset: 7 05-24-2017 Episodic Other skin disorders (9 sources) Sebaceous cyst of skin; Translations: [Sebaceous cyst] Onset: 7 11-08-2006 Episodic Other skin disorders (1 source) Follicular cyst of the skin and subcutaneous tissue, unspecified; Translations: [Follicular cyst of the skin and subcutaneous tissue, unspecified] Onset: 4 Episodic Residual codes; unclassified (9 sources) H/O: urinary disease; Translations: [Personal history of other specified conditions] Onset: 6 05-01-2016 Episodic Skin and subcutaneous tissue infections (11 sources) Cellulitis; Translations: [Cellulitis and abscess of trunk] Onset: 7 05-24-2017 Episodic Unclassified (2 sources) Decreased testosterone level ; Translations: [Testicular hypofunction] Onset: 7 05-24-2017 Episodic Results Test Name Value Interpretation Reference Range Facility Basic Metabolic Profile (BMP )on 03-30-2025 BUN/CRE 19.8 RATIO Normal 10-20 [facility] Comment on above: Performed By: #### L 500.4050, L501.5200, L503.0105, L503.6550, L509.1000, L503.6150, L506.0250, L100.0100, L503.6075, L506.1000 #### [facility] [address] [place], [address] Calcium [Mass/Vol] 9.3 mg/dL Normal 7.6-11.[address] [facility] Comment on above: Performed By: #### L 500.4050, L501.5200, L503.0105, L503.6550, L509.1000, L503.6150, L506.0250, L100.0100, L503.6075, L506.1000 #### [facility] [address] [facility], [address] Chloride [Moles/Vol] 104 mmol/L Normal 98-108 [facility] Comment on above: Performed By: #### L 500.4050, L501.5200, L503.0105, L503.6550, L509.1000, L503.6150, L506.0250, L100.0100, L503.6075, L506.1000 #### [facility] [address] [facility] [place], [address] CO2 [Moles/Vol] 26.2 mmol/L Normal 21.0-32.0 [facility] Comment on above: Performed By: #### L 500.4050, L501.5200, L503.0105, L503.6550, L509.1000, L503.6150, L506.0250, L100.0100, L503.6075, L506.1000 #### [facility] [address] [place], [address] Creatinine [Mass/Vol] 1.22 mg/dL High 0.70-1.20 [facility] Comment on above: Performed By: #### L 500.4050, L501.5200, L503.0105, L503.6550, L509.1000, L503.6150, L506.0250, L100.0100, L503.6075, L506.1000 #### [facility] [address] [place], [address] GAP 11 Normal 5-15 [facility] Comment on above: Performed By: #### L 500.4050, L501.5200, L503.0105, L503.6550, L509.1000, L503.6150, L506.0250, L100.0100, L503.6075, L506.1000 #### [facility] [address] [place], [address] GFR/1.73 sq M.predicted among non-blacks MDRD (S/P/Bld) [Vol rate/Area] 64 mL/min/{1.73_m2} Normal >60 [facility] Comment on above: Result Comment: mL/m in/1.73m2 CKD-EPI Creatinine Equation (2020) Performed By: #### L 500.4050, L501.5200, L503.0105, L503.6550, L509.1000, L503.6150, L506.0250, L100.0100, L503.6075, L506.1000 #### [facility] [address] [place], [address] Glucose [Mass/Vol] 122 mg/dL High 70-[address] [facility] Comment on above: Performed By: #### L 500.4050, L501.5200, L503.0105, L503.6550, L509.1000, L503.6150, L506.0250, L100.0100, L503.6075, L506.1000 #### [facility] [address] [place], [address] Potassium [Moles/Vol] 4.6 mmol/L Normal 3.3-5.1 [facility] Comment on above: Performed By: #### L 500.4050, L501.5200, L503.0105, L503.6550, L509.1000, L503.6150, L506.0250, L100.0100, L503.6075, L506.1000 #### [facility] [address] [place], [address] Sodium [Moles/Vol] 141 mmol/L Normal 133-[address] [facility] Comment on above: Performed By: #### L 500.4050, L501.5200, L503.0105, L503.6550, L509.1000, L503.6150, L506.0250, L100.0100, L503.6075, L506.1000 #### [facility] [address] [place], [address] Urea nitrogen [Mass/Vol] 24 mg/dL High - [facility] Comment on above: Performed By: #### L 500.4050, L501.5200, L503.0105, L503.6550, L509.1000, L503.6150, L506.0250, L100.0100, L503.6075, L506.1000 #### [facility] [address] [place], [address] Basic Metabolic Profile (BMP )on 03-26-2025 BUN/CRE 22.3 RATIO High - [facility] Comment on above: Performed By: #### L 500.4050, L501.5200, L503.0105, L503.6550, L509.1000, L503.6150, L506.0250, L100.0100, L503.6075, L506.1000 #### [facility] [address], [address] Calcium [Mass/Vol] 9.4 mg/dL Normal 7.6-11.[address] [facility] Comment on above: Performed By: #### L 500.4050, L501.5200, L503.0105, L503.6550, L509.1000, L503.6150, L506.0250, L100.0100, L503.6075, L506.1000 #### [facility] [address] [place], [place], [id number] (161) Chloride [Moles/Vol] 97 mmol/L Low 98-108 [facility] Comment on above: Performed By: #### L 500.4050, L501.5200, L503.0105, L503.6550, L509.1000, L503.6150, L506.0250, L100.0100, L503.6075, L506.1000 #### [facility] [address] [facility] [place], [place], [id number] (198) CO2 [Moles/Vol] 29.8 mmol/L Normal 21.0-32.0 [facility] Comment on above: Performed By: #### L 500.4050, L501.5200, L503.0105, L503.6550, L509.1000, L503.6150, L506.0250, L100.0100, L503.6075, L506.1000 #### [facility] [address] [facility] [place], [place], [id number] (777) Creatinine [Mass/Vol] 1.18 mg/dL Normal 0.70-1.20 [facility] Comment on above: Performed By: #### L 500.4050, L501.5200, L503.0105, L503.6550, L509.1000, L503.6150, L506.0250, L100.0100, L503.6075, L506.1000 #### [facility] [address] [facility], [address] GAP 12 Normal 5-15 [facility] Comment on above: Performed By: #### L 500.4050, L501.5200, L503.0105, L503.6550, L509.1000, L503.6150, L506.0250, L100.0100, L503.6075, L506.1000 #### [facility] [address] [place], [address] GFR/1.73 sq M.predicted among non-blacks MDRD (S/P/Bld) [Vol rate/Area] 67 mL/min/{1.73_m2} Normal >60 [facility] Comment on above: Result Comment: mL/m in/1.73m2 CKD-EPI Creatinine Equation (2020) Performed By: #### L 500.4050, L501.5200, L503.0105, L503.6550, L509.1000, L503.6150, L506.0250, L100.0100, L503.6075, L506.1000 #### [facility] [address] [place], [address] Glucose [Mass/Vol] 131 mg/dL High 70-[address] [facility] Comment on above: Performed By: #### L 500.4050, L501.5200, L503.0105, L503.6550, L509.1000, L503.6150, L506.0250, L100.0100, L503.6075, L506.1000 #### [facility] [address] [place], [address] Potassium [Moles/Vol] 3.3 mmol/L Normal 3.3-5.1 [facility] Comment on above: Result Comment: Hemo lysis present, Results??could be affected. ?? Performed By: #### L 500.4050, L501.5200, L503.0105, L503.6550, L509.1000, L503.6150, L506.0250, L100.0100, L503.6075, L506.1000 #### [facility] [address] [place], [address] Sodium [Moles/Vol] 139 mmol/L Normal 133-[address] [facility] Comment on above: Performed By: #### L 500.4050, L501.5200, L503.0105, L503.6550, L509.1000, L503.6150, L506.0250, L100.0100, L503.6075, L506.1000 #### [facility] [address] [place], [address] Urea nitrogen [Mass/Vol] 26 mg/dL High - [facility] Comment on above: Performed By: #### L 500.4050, L501.5200, L503.0105, L503.6550, L509.1000, L503.6150, L506.0250, L100.0100, L503.6075, L506.1000 #### [facility] [address] [facility], [address] [id number] 03-26-2025 [facility] Misc. COMMENT Normal . [facility] Comment on above: Order Comment: Order Date: 08/19/24 Order Info: [id number] - B12 Order Info: [id number] - VITD25 Result Comment: Test Ordered: [id number] Paraneoplastic Ab Test(s) 039801-Kjsd-Cx Ab; 884276-Mixr-Xz Ab; 485305- Antineuronal nuclear Ab Type 3; 371201- DATA MANAGER Type-1 (Anti-Yo) Ab; 965534- Purkinje Cell Cyto Ab Type 2; 384415- Purkinje Cell Cyto Ab Type Tr; 701021-Ylfiiizymvl Antibody; 357227-KGZA-3 IgG; 540103-ONWH-9; 132091- CASPR2 Antibody,Cell-based IFA; 324426- LGI1 Antibody, Cell-based IFA was developed and its performance characteristics determined by [facility]. It has not been cleared or approved by the Food and Drug Administration. Interpretation Negative BN Reference Range: Negative A negative paraneoplastic autoantibody result does not rule out all clinically relevant antibodies. If indicated, a phenotype-specific profile (For example, Encephalopathy, dementia, myelopathy, or axonal neuropathy) should be considered. Anti-Hu Ab Negative BN Reference Range: Negative Anti-Ri Ab Negative BN Reference Range: Negative Antineuronal nuclear Ab Type 3 Negative BN Reference Range: Negative DATA MANAGER Type-1 (Anti-Yo) Ab Negative BN Reference Range: Negative Purkinje Cell Cyto Ab Type 2 Negative BN Reference Range: Negative Purkinje Cell Cyto Ab Type Tr Negative BN Reference Range: Negative Amphiphysin Antibody Negative BN Reference Range: Negative CRMP-5 IgG Negative BN Reference Range: Negative AGNA-1 Negative BN Reference Range: Negative VGCC Antibody <1.0 pmol/L BN Reference Range: 0.0-30.0 CASPR2 Antibody,Cell-based IFA Negative BN Reference Range: Negative LGI1 Antibody, Cell-based IFA Negative BN Reference Range: Negative Performed at: - [address] [id number] Em Physician: Carlos Sim MD, Phone: [phone] Performed at: [facility] [address] [id number] Em Physician: Hesham Christopher PhD, Phone: [phone] Performed By: #### L 500.4050, L501.5200, L503.0105, L503.6550, L509.1000, L503.6150, L506.0250, L100.0100, L503.6075, L506.1000 #### [facility] [address] [facility] [place], [place], [address] CRP, High Sensitivity [id number] on 03-24-2025 CRP, HIGH SENS 9.33 mg/L High 0.00-3.00 [facility] Comment on above: Result Comment: Rela tive Risk for Future Cardiovascular Event Low <1.00 Average 1.00 - 3.00 High >3.00 Performed By: #### L 500.4050, L501.5200, L503.0105, L503.6550, L509.1000, L503.6150, L506.0250, L100.0100, L503.6075, L506.1000 #### [facility] [address] [place], [address] [id number] 03-17-2025 [facility] Normal . [facility] Comment on above: Order Comment: Order Date: 08/19/24 Order Info: [id number] - PTHIN Result Comment: Test Ordered: [id number] CBG with Free Cortisol Kendall.Bind.Glob.(CBG) 2.2 mg/dL ES Reference Range: . This test was developed and its performance characteristics determined by [facility]. It has not been cleared or approved by the Food and Drug Administration. Reference Range: Adults: 1.7 - 3.1 Cortisol, Serum LCMS 14 ug/dL ES Reference Range: . This test was developed and its performance characteristics determined by [facility]. It has not been cleared or approved by the Food and Drug Administration. Reference Range: Adults 8:00 AM 8.0 - 19 4:00 PM 4.0 - 11 Free Cortisol, Serum 1.6 ug/dL ES Reference Range: . Reference Range: Adults 8:00 AM: 0.2 - 1.8 Percent Free Cortisol, Serum 12 % ES Reference Range: . Reference Range: Adults 8:00 am: 2.3 - 9.5 Performed at: [facility] [address] [place] [id number] Em Physician: Evan Savage MD, Phone: [phone] Performed at: [address] [id number] Em Physician: Hesham Christopher PhD, Phone: [phone] Performed By: #### L 500.4050, L501.5200, L503.0105, L503.6550, L509.1000, L503.6150, L506.0250, L100.0100, L503.6075, L506.1000 #### [facility] [place], [address] [id number] 03-16-2025 [facility]. COMMENT Normal . [facility] Comment on above: Order Comment: Order Date: 08/19/24 Order Info: [id number] - PTHIN Result Comment: Test Ordered: [id number] Dexamethasone, Serum Dexamethasone, Serum <30 ng/dL ES Reference Range: . This test was developed and its performance characteristics determined by [employer] [facility]. It has not been cleared or approved by the Food and Drug Administration. Reference Range: Adults baseline: <30 8:00 AM following 1 mg dexamethasone previous evenin - 295 8:00 AM following 8 mg dexamethasone (4 x 2 mg doses) previous day: 1600 - 2850 Performed at: [facility] [address] [place] [id number] Em Physician: Evan Savage MD, Phone: [phone] Performed at: [facility] [address] [id number] Em Physician: Hesham Christopher PhD, Phone: [phone] Performed By: #### L 500.4050, L501.5200, L503.0105, L503.6550, L509.1000, L503.6150, L506.0250, L100.0100, L503.6075, L506.1000 #### [facility] [address] [place], [place], [id number] Anion gap in Serum or Plasma Ordered By: Tony Kay on 03-13-2025 Anion gap [Moles/Vol] 10 mmol/L 5-15 [facility] BUN/creatinine ratioOrdered By: Tony Kay on 03-13-2025 Urea nitrogen/Creatinine [Mass ratio] 20.7 mg/mg High [facility]20 [facility] Basic Metabolic Profile (BMP )on 03-13-2025 BUN/CRE 20.7 RATIO High [address] [place] [address] Comment on above: Performed By: #### L 500.4050, L501.5200, L503.0105, L503.6550, L509.1000, L503.6150, L506.0250, L100.0100, L503.6075, L506.1000 #### [facility] [address] [place], [place], [id number] Calcium [Mass/Vol] 9.6 mg/dL Normal 7.6-11.[address] [facility] Comment on above: Performed By: #### L 500.4050, L501.5200, L503.0105, L503.6550, L509.1000, L503.6150, L506.0250, L100.0100, L503.6075, L506.1000 #### [facility] [address], [address] Chloride [Moles/Vol] 105 mmol/L Normal 98-108 [facility] Comment on above: Performed By: #### L 500.4050, L501.5200, L503.0105, L503.6550, L509.1000, L503.6150, L506.0250, L100.0100, L503.6075, L506.1000 #### [facility] [address] [facility] [address] [place], [place], [id number] (813) CO2 [Moles/Vol] 25.2 mmol/L Normal 21.0-32.0 [facility] Comment on above: Performed By: #### L 500.4050, L501.5200, L503.0105, L503.6550, L509.1000, L503.6150, L506.0250, L100.0100, L503.6075, L506.1000 #### [facility] [address] [facility] [place], [place], [id number] (651) Creatinine [Mass/Vol] 1.29 mg/dL High 0.70-1.20 [facility] Comment on above: Performed By: #### L 500.4050, L501.5200, L503.0105, L503.6550, L509.1000, L503.6150, L506.0250, L100.0100, L503.6075, L506.1000 #### [facility] [address] [place], [address] GAP 10 Normal 5-15 [facility] Comment on above: Performed By: #### L 500.4050, L501.5200, L503.0105, L503.6550, L509.1000, L503.6150, L506.0250, L100.0100, L503.6075, L506.1000 #### [facility] [address] [place], [address] GFR/1.73 sq M.predicted among non-blacks MDRD (S/P/Bld) [Vol rate/Area] 60 mL/min/{1.73_m2} Normal >60 [facility] Comment on above: Result Comment: mL/m in/1.73m2 CKD-EPI Creatinine Equation (2020) Performed By: #### L 500.4050, L501.5200, L503.0105, L503.6550, L509.1000, L503.6150, L506.0250, L100.0100, L503.6075, L506.1000 #### [facility] [address] [place], [address] Glucose [Mass/Vol] 123 mg/dL High 70-[address] [facility] Comment on above: Performed By: #### L 500.4050, L501.5200, L503.0105, L503.6550, L509.1000, L503.6150, L506.0250, L100.0100, L503.6075, L506.1000 #### [facility] [address] [place], [address] Potassium [Moles/Vol] 4.8 mmol/L Normal 3.3-5.1 [facility] Comment on above: Performed By: #### L 500.4050, L501.5200, L503.0105, L503.6550, L509.1000, L503.6150, L506.0250, L100.0100, L503.6075, L506.1000 #### [facility] [address] [place], [address] Sodium [Moles/Vol] 141 mmol/L Normal 133-[address] [facility] Comment on above: Performed By: #### L 500.4050, L501.5200, L503.0105, L503.6550, L509.1000, L503.6150, L506.0250, L100.0100, L503.6075, L506.1000 #### [facility] [facility] [address] [facility], [address] Urea nitrogen [Mass/Vol] 27 mg/dL High 4-19 [facility] Comment on above: Performed By: #### L 500.4050, L501.5200, L503.0105, L503.6550, L509.1000, L503.6150, L506.0250, L100.0100, L503.6075, L506.1000 #### [facility] [address] [facility] [place], [place], [id number] Carbon dioxide, total [Moles /volume] in Central venous bloodOrdered By: Tony Kay on 03-13-2025 CO2 [Moles/Vol] 25.2 mmol/L 21.0-32.0 [facility] Chloride assayOrdered By: Diego Kay on 03-13-2025 Chloride [Moles/Vol] 105 mmol/L 98-108 [facility] Glomerular filtration rate ( GFR) estimation/1.73 sq m using serum, plasma, or whole bOrdered By: Tony Kay on 03-13-2025 GFR/1.73 sq M.predicted among non-blacks MDRD (S/P/Bld) [Vol rate/Area] 60 mL/min/{1.73_m2} >60 [facility] Comment on above: mL/min/1.73m2 CKD-EP I Creatinine Equation (2020) Potassium measurement (mass/ volume)Ordered By: Tony Kay on 03-13-2025 Potassium (Unsp spec) [Mass/Vol] 4.8 mmol/L 3.3-5.1 [facility] Serum creatinine measurement (mass/volume)Ordered By: Tony Kay on 03-13-2025 Creatinine [Mass/Vol] 1.29 mg/dL High 0.70-1.20 [facility] Serum glucose measurement (m ass/volume)Ordered By: Tony Kay on 03-13-2025 Glucose [Mass/Vol] 123 mg/dL High 70-[address] [facility] Serum or plasma calcium tracy urement (mass/volume)Ordered By: Tony Kay on 03-13-2025 Calcium [Mass/Vol] 9.6 mg/dL 7.6-11.[address] [facility] Serum or plasma urea nitroge n measurement (mass/volume)Ordered By: Tony Kay on 03-13-2025 Urea nitrogen [Mass/Vol] 27 mg/dL High 4-19 [facility] Sodium levelOrdered By: Tony Kay on 03-13-2025 Sodium [Moles/Vol] 141 mmol/L 133-[address] [facility] Angiotensin Convert Enzymeon 03-11-2025 ANGIOT-CONV.ENZ 33 U/L Normal 14-82 [facility] Comment on above: Order Comment: Order Date: 08/19/24 Order Info: 0565-1 - PTHIN Result Comment: Perf ormed at: - [facility] [address] [id number] Em Physician: Hesham Christopher PhD, Phone: [phone] Performed By: #### L 500.4050, L501.5200, L503.0105, L503.6550, L509.1000, L503.6150, L506.0250, L100.0100, L503.6075, L506.1000 #### [facility] [address] [place], [address] Anion gap in Serum or Plasma Ordered By: Tony Kay on 03-10-2025 Anion gap [Moles/Vol] 13 mmol/L 5-15 [facility] BUN/creatinine ratioOrdered By: Tony Kay on 03-10-2025 Urea nitrogen/Creatinine [Mass ratio] 20.7 mg/mg High - [facility] Basic Metabolic Profile (BMP )on 03-10-2025 BUN/CRE 20.7 RATIO High - [facility] Comment on above: Order Comment: Order Date: 08/19/24 Order Info: 2132-9 - B12 Order Info: [id number] - VITD25 Performed By: #### L 500.4050, L501.5200, L503.0105, L503.6550, L509.1000, L503.6150, L506.0250, L100.0100, L503.6075, L506.1000 #### [facility] [address] [place], [address] Calcium [Mass/Vol] 9.2 mg/dL Normal 7.6-11.[address] [facility] Comment on above: Order Comment: Order Date: 08/19/24 Order Info: 2132-06 - B12 Order Info: [id number] - VITD25 Performed By: #### L 500.4050, L501.5200, L503.0105, L503.6550, L509.1000, L503.6150, L506.0250, L100.0100, L503.6075, L506.1000 #### [facility] [address] [place], [place], [id number] Chloride [Moles/Vol] 100 mmol/L Normal 98-108 [facility] Comment on above: Order Comment: Order Date: 08/19/24 Order Info: 2132-06 - B12 Order Info: [id number] - VITD25 Performed By: #### L 500.4050, L501.5200, L503.0105, L503.6550, L509.1000, L503.6150, L506.0250, L100.0100, L503.6075, L506.1000 #### [facility] [address] [place], [address] CO2 [Moles/Vol] 26.6 mmol/L Normal 21.0-32.0 [facility] Comment on above: Order Comment: Order Date: 08/19/24 Order Info: 9 - B12 Order Info: [id number] - VITD25 Performed By: #### L 500.4050, L501.5200, L503.0105, L503.6550, L509.1000, L503.6150, L506.0250, L100.0100, L503.6075, L506.1000 #### [facility] [address] [place], [address] Creatinine [Mass/Vol] 1.06 mg/dL Normal 0.70-1.20 [facility] Comment on above: Order Comment: Order Date: 08/19/24 Order Info: 2132-06 Order Info: 12105-8 - VITD25 Performed By: #### L 500.4050, L501.5200, L503.0105, L503.6550, L509.1000, L503.6150, L506.0250, L100.0100, L503.6075, L506.1000 #### [facility] [address] [place], [place], [id number] GAP 13 Normal 5-15 [facility] Comment on above: Order Comment: Order Date: 08/19/24 Order Info: 2132-06 Order Info: [id number] - VITD25 Performed By: #### L 500.4050, L501.5200, L503.0105, L503.6550, L509.1000, L503.6150, L506.0250, L100.0100, L503.6075, L506.1000 #### [facility] [address] [place], [address] GFR/1.73 sq M.predicted among non-blacks MDRD (S/P/Bld) [Vol rate/Area] 76 mL/min/{1.73_m2} Normal >60 [facility] Comment on above: Order Comment: Order Date: 08/19/24 Order Info: 2132-06 Order Info: 96744-5 - VITD25 Result Comment: mL/m in/1.73m2 CKD-EPI Creatinine Equation (2020) Performed By: #### L 500.4050, L501.5200, L503.0105, L503.6550, L509.1000, L503.6150, L506.0250, L100.0100, L503.6075, L506.1000 #### [facility] [address] [place], [address] Glucose [Mass/Vol] 118 mg/dL High 70-[address] [facility] Comment on above: Order Comment: Order Date: 08/19/24 Order Info: 2132-06 B12 Order Info: [id number] - VITD25 Performed By: #### L 500.4050, L501.5200, L503.0105, L503.6550, L509.1000, L503.6150, L506.0250, L100.0100, L503.6075, L506.1000 #### [facility] [address] [place], [address] Potassium [Moles/Vol] 3.1 mmol/L Low 3.3-5.1 [facility] Comment on above: Order Comment: Order Date: 08/19/24 Order Info: 2132-06 Order Info: 00531-6 - VITD25 Performed By: #### L 500.4050, L501.5200, L503.0105, L503.6550, L509.1000, L503.6150, L506.0250, L100.0100, L503.6075, L506.1000 #### [facility] [address] [place], [address] Sodium [Moles/Vol] 139 mmol/L Normal 133-[address] [facility] Comment on above: Order Comment: Order Date: 08/19/24 Order Info: 2132-06 Order Info: 48125-5 - VITD25 Performed By: #### L 500.4050, L501.5200, L503.0105, L503.6550, L509.1000, L503.6150, L506.0250, L100.0100, L503.6075, L506.1000 #### [facility] [address] [place], [address] Urea nitrogen [Mass/Vol] 22 mg/dL High 4-19 [facility] Comment on above: Order Comment: Order Date: 08/19/24 Order Info: 9 - B12 Order Info: [id number] - VITD25 Performed By: #### L 500.4050, L501.5200, L503.0105, L503.6550, L509.1000, L503.6150, L506.0250, L100.0100, L503.6075, L506.1000 #### [facility] [address] [place], [address] CRPon 03-10-2025 C-REACTIVE PROT 16.20 mg/L High 0.0-3.0 [facility] Comment on above: Order Comment: Order Date: 08/19/24 Order Info: 9 - B12 Order Info: 24246-2 - VITD25 Performed By: #### L 500.4050, L501.5200, L503.0105, L503.6550, L509.1000, L503.6150, L506.0250, L100.0100, L503.6075, L506.1000 #### [facility] [address] [place], [place], [address] Carbon dioxide, total [Moles /volume] in Central venous bloodOrdered By: Tony Kay on 03-10-2025 CO2 [Moles/Vol] 26.6 mmol/L 21.0-32.0 [facility] Chest PA and Lateralon 03-10 Chest PA and Lateral [facility] [address] [place] [address] Chest PA and Lateral MR#: [id number] Acct: [id number] Name: BALTAZAR BAY Rep #: [id number] : 1955 M 69 From: Toño Barnes MD PCP: Dr. Tony Kay MD Status: REG CLI Study: Chest PA and Lateral Date of Exam: 03/10/25 Exam# [id number] Ordering Dr: Tony Kay MD PROCEDURE: CHEST PA AND LATERAL 03/10/2025 REASON FOR EXAM: ATYPICAL CHEST PAIN TECHNIQUE: Frontal and lateral views of the chest. COMPARISON: None FINDINGS: The lungs are clear. The heart borders mediastinum and pulmonary vascular pattern are normal. The upper abdominal bowel gas pattern is normal. There are no bony abnormalities. RAD/Chest PA and Lateral IMPRESSION: No evidence of acute cardiopulmonary pathology. Reading Location: [id number] CC: Dr. Tony Kay MD Beater Out Leveling Machine: Signed Normal [facility] Chloride assayOrdered By: Diego Kay on 03-10-2025 Chloride [Moles/Vol] 100 mmol/L 98-108 [facility] D-Dimer Quantitative (DVT/PE )on 03-10-2025 D-DIMER QUANT 0.38 FEU/ug/m Normal 0.27-0.49 [facility] Comment on above: Order Comment: Order Date: 08/19/24 Order Info: 2132-9 - B12 Order Info: [id number] - VITD25 Result Comment: NORM AL D-Dimer level (<0.50) indicates no DVT or PE. Performed By: #### L 500.4050, L501.5200, L503.0105, L503.6550, L509.1000, L503.6150, L506.0250, L100.0100, L503.6075, L506.1000 #### [facility] [address] [facility] [place], [place], [id number] Glomerular filtration rate ( GFR) estimation/1.73 sq m using serum, plasma, or whole bOrdered By: Tony Kay on 03-10-2025 GFR/1.73 sq M.predicted among non-blacks MDRD (S/P/Bld) [Vol rate/Area] 76 mL/min/{1.73_m2} >60 [facility] Comment on above: mL/min/1.73m2 CKD-EP I Creatinine Equation (2020) L501.4021on 03-10-2025 Trop T High Sen 17 ng/L Normal <=22 [facility] Comment on above: Order Comment: Order Date: 08/19/24 Order Info: 0565-1 - PTHIN Performed By: #### L 500.4050, L501.5200, L503.0105, L503.6550, L509.1000, L503.6150, L506.0250, L100.0100, L503.6075, L506.1000 #### [facility] [address] [place], [address] L503.7505on 03-10-2025 proBNP < 36 Normal <=900 [facility] Comment on above: Order Comment: Order Date: 08/19/24 Order Info: 0565-1 - PTHIN Result Comment: Hear t Failure Unlikely: < 300 pg/mL Heart Failure Likely < 50 Years: > 450 pg/mL 50-75 Years: > 900 pg/mL >75 Years: > 1800 pg/mL Performed By: #### L 500.4050, L501.5200, L503.0105, L503.6550, L509.1000, L503.6150, L506.0250, L100.0100, L503.6075, L506.1000 #### [facility] [address] [place], [address] Natriuretic peptide.B prohor gene N-Terminal [Mass/volume] in Serum or PlasmaOrdered By: Tony Kay on 03-10-2025 Natriuretic peptide.B prohormone N-Terminal [Mass/Vol] < 36 pg/mL <900 [facility] Comment on above: Heart Failure Unlike ly: < 300 pg/mLHeart Failure Likely< 50 Years: > 450 pg/mL50-75 Years: > 900 pg/mL>75 Years: > 1800 pg/mL Potassium measurement (mass/ volume)Ordered By: Tony Kay on 03-10-2025 Potassium (Unsp spec) [Mass/Vol] 3.1 mmol/L Low 3.3-5.1 [facility] Serum creatinine measurement (mass/volume)Ordered By: Tony Kay on 03-10-2025 Creatinine [Mass/Vol] 1.06 mg/dL 0.70-1.20 [facility] Serum glucose measurement (m ass/volume)Ordered By: Tony Kay on 03-10-2025 Glucose [Mass/Vol] 118 mg/dL High 70-[address] [facility] Serum or plasma C reactive p rotein measurement (mass/volume)Ordered By: Tony Kay on 03-10-2025 CRP [Mass/Vol] 16.20 mg/L High 0.0-3.0 [facility] Serum or plasma angiotensin converting enzyme measurement (enzymatic activity/volume)Ordered By: Tony Kay on 03-10-2025 Angiotensin converting enzyme [Catalytic activity/Vol] 33 U/L 14-82 [facility] Comment on above: Performed at: [place] [id number] Director: Hesham Christopher PhD, Phone: [phone] Serum or plasma calcium tracy urement (mass/volume)Ordered By: Tony Kay on 03-10-2025 Calcium [Mass/Vol] 9.2 mg/dL 7.6-11.[address] [facility] Serum or plasma urea nitroge n measurement (mass/volume)Ordered By: Tony Kay on 03-10-2025 Urea nitrogen [Mass/Vol] 22 mg/dL High 4-19 [facility] Sodium levelOrdered By: Tony Kay on 03-10-2025 Sodium [Moles/Vol] 139 mmol/L 133-[address] [facility] Troponin T.cardiac [Mass/vol ume] in Serum or Plasma by High sensitivity methodOrdered By: Tony Kay on 03-10-2025 Troponin T.cardiac High sensitivity method [Mass/Vol] 17 ng/L <22 [facility] Basic Metabolic Profile (BMP )on 03-09-2025 BUN/CRE 21.4 RATIO High 10-20 [facility] Comment on above: Performed By: #### L 500.4050, L501.5200, L503.0105, L503.6550, L509.1000, L503.6150, L506.0250, L100.0100, L503.6075, L506.1000 #### [facility] [address] [place], [place], [id number] Calcium [Mass/Vol] 9.4 mg/dL Normal 7.6-11.[address] [facility] Comment on above: Performed By: #### L 500.4050, L501.5200, L503.0105, L503.6550, L509.1000, L503.6150, L506.0250, L100.0100, L503.6075, L506.1000 #### [facility] [address] [place], [address] Chloride [Moles/Vol] 102 mmol/L Normal 98-108 [facility] Comment on above: Performed By: #### L 500.4050, L501.5200, L503.0105, L503.6550, L509.1000, L503.6150, L506.0250, L100.0100, L503.6075, L506.1000 #### [facility] [address] [place], [address] CO2 [Moles/Vol] 26.4 mmol/L Normal 21.0-32.0 [facility] Comment on above: Performed By: #### L 500.4050, L501.5200, L503.0105, L503.6550, L509.1000, L503.6150, L506.0250, L100.0100, L503.6075, L506.1000 #### [facility] [address] [place], [address] Creatinine [Mass/Vol] 1.09 mg/dL Normal 0.70-1.20 [facility] Comment on above: Performed By: #### L 500.4050, L501.5200, L503.0105, L503.6550, L509.1000, L503.6150, L506.0250, L100.0100, L503.6075, L506.1000 #### [facility] [address] [place], [address] GAP 12 Normal 5-15 [facility] Comment on above: Performed By: #### L 500.4050, L501.5200, L503.0105, L503.6550, L509.1000, L503.6150, L506.0250, L100.0100, L503.6075, L506.1000 #### [facility] [address] [place], [address] GFR/1.73 sq M.predicted among non-blacks MDRD (S/P/Bld) [Vol rate/Area] 73 mL/min/{1.73_m2} Normal >60 [facility] Comment on above: Result Comment: mL/m in/1.73m2 CKD-EPI Creatinine Equation (2020) Performed By: #### L 500.4050, L501.5200, L503.0105, L503.6550, L509.1000, L503.6150, L506.0250, L100.0100, L503.6075, L506.1000 #### [facility] [address] [place], [address] Glucose [Mass/Vol] 120 mg/dL High 70-[address] [facility] Comment on above: Performed By: #### L 500.4050, L501.5200, L503.0105, L503.6550, L509.1000, L503.6150, L506.0250, L100.0100, L503.6075, L506.1000 #### [facility] [address] [place], [address] Potassium [Moles/Vol] 3.6 mmol/L Normal 3.3-5.1 [facility] Comment on above: Performed By: #### L 500.4050, L501.5200, L503.0105, L503.6550, L509.1000, L503.6150, L506.0250, L100.0100, L503.6075, L506.1000 #### [facility] [address] [place], [address] Sodium [Moles/Vol] 140 mmol/L Normal 133-[address] [facility] Comment on above: Performed By: #### L 500.4050, L501.5200, L503.0105, L503.6550, L509.1000, L503.6150, L506.0250, L100.0100, L503.6075, L506.1000 #### [facility] [address] [facility] [address] [place], [place], [id number] Urea nitrogen [Mass/Vol] 23 mg/dL High 4-19 [facility] Comment on above: Performed By: #### L 500.4050, L501.5200, L503.0105, L503.6550, L509.1000, L503.6150, L506.0250, L100.0100, L503.6075, L506.1000 #### [facility] [address] [facility], [address] ALDOSTERONE/DIRECT RENIN RAT IOon 03-06-2025 MELISSA RENIN RATIO 1.3 Normal <3.8 [facility] Comment on above: Order Comment: Speci men Type: BLOOD SPECIMEN Ordering Facility: [facility] Address: [address] [place] [address] Result Comment: A ra kimo of aldosterone in ng/dL to direct renin in pg/mL greater than or equal to 3.8 is a positive screening test result for primary aldosteronism, when aldosterone is greater than or equal to 15 ng/dL. Performed By: #### A LDREN #### [facility] CLIA [id number] [address] [place] [address] [place] Aldosterone [Mass/Vol] 68.7 ng/dL High 0.0-<35.4 [facility] Comment on above: Order Comment: Edwardi men Type: BLOOD SPECIMEN Ordering Facility: [facility] Address: [address] [place], [place] [id number] Result Comment: The reference interval for serum/plasma aldosterone is based on a normal sodium intake and upright position. High sodium intake may suppress aldosterone and low sodium intake may increase aldosterone. The supine reference interval is <23.7 ng/dL. A ratio of aldosterone in ng/dL to direct renin in pg/mL greater than or equal to 3.8 is a positive screening test result for primary aldosteronism, when aldosterone is greater than or equal to 15 ng/dL. Performed By: #### A LDREN #### [facility] CLIA [id number] [address] [place] [address] OF [facility] DIRECT RENIN 54.0 pg/mL Normal 3.6-81.6 [facility] Comment on above: Order Comment: Kirsten tomlin Type: BLOOD SPECIMEN Ordering Facility: [facility] Address: [address] [place] [address] Result Comment: The reference interval for direct renin is based on an upright position. The supine reference intervals are: Age <41 years: 3.2-33.2 pg/mL Age >=41 years: 2.5-45.1 pg/mL A ratio of aldosterone in ng/dL to direct renin in pg/mL greater than or equal to 3.8 is a positive screening test result for primary aldosteronism, when aldosterone is greater than or equal to 15 ng/dL. Performed By: #### A LDREN #### [facility] CLIA [id number] [address] [place] [address] [place] PATIENT UPRIGHT OR SUPINE Upright Normal [facility] Comment on above: Order Comment: Kirsten tomlin Type: BLOOD SPECIMEN Ordering Facility: [facility] Address: [address] [place] [address] Performed By: #### A LDREN #### [facility] CLIA [id number] [address] [place] [address] [place] L3410.9992on 03-06-2025 [facility] Misc. COMMENT Normal . [facility] Comment on above: Order Comment: Order Date: 08/19/24 Order Info: 0786-1 - CMP Order Info: 91095-2 - MG Order Info: 2500-7 - TIBC Order Info: 2498-4 - FE Order Info: 2276-4 - LUKE Order Info: 2284-8 - FOLS N Result Comment: Test Ordered: [id number] Dexamethasone, Serum Dexamethasone, Serum 452 ng/dL ES Reference Range: . This test was developed and its performance characteristics determined by [employer]. It has not been cleared or approved by the Food and Drug Administration. Reference Range: Adults baseline: <30 8:00 AM following 1 mg dexamethasone previous evenin - 295 8:00 AM following 8 mg dexamethasone (4 x 2 mg doses) previous day: 1600 - 2850 Performed at: [facility] [address] [place] [id number] Em Physician: Evan Savage MD, Phone: [phone] Performed at: [address] [id number] Em Physician: Hesham Christopher PhD, Phone: [phone] Performed By: #### L 500.4050, L501.5200, L503.0105, L503.6550, L509.1000, L503.6150, L506.0250, L100.0100, L503.6075, L506.1000 #### [facility] [address] [place] [address]. [place], [address] POTASSIUMon 03-06-2025 Potassium [Moles/Vol] 3.5 mmol/L Low 3.7-5.1 [facility] Comment on above: Order Comment: Speci men Type: BLOOD SPECIMEN Ordering Facility: [facility] Address: [address] [place] [address] Performed By: #### K 1 #### [facility] CLIA [id number] [address] [place] [address] [place] Anion gap in Serum or Plasma Ordered By: Tony Kay on 02-26-2025 Anion gap [Moles/Vol] 10 mmol/L - [facility] BUN/creatinine ratioOrdered By: Tony Kay on 02-26-2025 Urea nitrogen/Creatinine [Mass ratio] 21.8 mg/mg High 07-27 [facility] Basic Metabolic Profile (BMP )on 02-26-2025 BUN/CRE 21.8 RATIO High 10-20 [facility] Comment on above: Performed By: #### L 500.4050, L501.5200, L503.0105, L503.6550, L509.1000, L503.6150, L506.0250, L100.0100, L503.6075, L506.1000 #### [facility] [address] [place], [address] Calcium [Mass/Vol] 9.2 mg/dL Normal 7.6-11.[address] [facility] Comment on above: Performed By: #### L 500.4050, L501.5200, L503.0105, L503.6550, L509.1000, L503.6150, L506.0250, L100.0100, L503.6075, L506.1000 #### [facility] [address] [place], [address] Chloride [Moles/Vol] 105 mmol/L Normal 98-108 [facility] Comment on above: Performed By: #### L 500.4050, L501.5200, L503.0105, L503.6550, L509.1000, L503.6150, L506.0250, L100.0100, L503.6075, L506.1000 #### [facility] [address] [place], [address] CO2 [Moles/Vol] 24.9 mmol/L Normal 21.0-32.0 [facility] Comment on above: Performed By: #### L 500.4050, L501.5200, L503.0105, L503.6550, L509.1000, L503.6150, L506.0250, L100.0100, L503.6075, L506.1000 #### [facility] [address] [place], [address] Creatinine [Mass/Vol] 1.08 mg/dL Normal 0.70-1.20 [facility] Comment on above: Performed By: #### L 500.4050, L501.5200, L503.0105, L503.6550, L509.1000, L503.6150, L506.0250, L100.0100, L503.6075, L506.1000 #### [facility] [address] [place], [address] GAP 10 Normal 5-15 [facility] Comment on above: Performed By: #### L 500.4050, L501.5200, L503.0105, L503.6550, L509.1000, L503.6150, L506.0250, L100.0100, L503.6075, L506.1000 #### [facility] [address] [place], [place], [id number] ([address]) GFR/1.73 sq M.predicted among non-blacks MDRD (S/P/Bld) [Vol rate/Area] 74 mL/min/{1.73_m2} Normal >60 [facility] Comment on above: Result Comment: mL/m in/1.73m2 CKD-EPI Creatinine Equation (2020) Performed By: #### L 500.4050, L501.5200, L503.0105, L503.6550, L509.1000, L503.6150, L506.0250, L100.0100, L503.6075, L506.1000 #### [facility] [address] [place], [address] Glucose [Mass/Vol] 134 mg/dL High 70-[address] [facility] Comment on above: Performed By: #### L 500.4050, L501.5200, L503.0105, L503.6550, L509.1000, L503.6150, L506.0250, L100.0100, L503.6075, L506.1000 #### [facility] [address] [place], [place], [id number] ([address]) Potassium [Moles/Vol] 4.2 mmol/L Normal 3.3-5.1 [facility] Comment on above: Performed By: #### L 500.4050, L501.5200, L503.0105, L503.6550, L509.1000, L503.6150, L506.0250, L100.0100, L503.6075, L506.1000 #### [facility] [address] [place], [place], [id number] Sodium [Moles/Vol] 140 mmol/L Normal 133-[address] [facility] Comment on above: Performed By: #### L 500.4050, L501.5200, L503.0105, L503.6550, L509.1000, L503.6150, L506.0250, L100.0100, L503.6075, L506.1000 #### [facility] [address] [facility] [place], [place], [id number] Urea nitrogen [Mass/Vol] 24 mg/dL High 4-19 [facility] Comment on above: Performed By: #### L 500.4050, L501.5200, L503.0105, L503.6550, L509.1000, L503.6150, L506.0250, L100.0100, L503.6075, L506.1000 #### [facility] [address] [facility], [address] Carbon dioxide, total [Moles /volume] in Central venous bloodOrdered By: Tony Kay on 02-26-2025 CO2 [Moles/Vol] 24.9 mmol/L 21.0-32.0 [facility] Chloride assayOrdered By: Diego Kay on 02-26-2025 Chloride [Moles/Vol] 105 mmol/L 98-108 [facility] Glomerular filtration rate ( GFR) estimation/1.73 sq m using serum, plasma, or whole bOrdered By: Tony Kay on 02-26-2025 GFR/1.73 sq M.predicted among non-blacks MDRD (S/P/Bld) [Vol rate/Area] 74 mL/min/{1.73_m2} >60 [facility] Comment on above: mL/min/1.73m2 CKD-EP I Creatinine Equation (2020) L509.6001on 02-26-2025 CORTISOL 0.55 ug/dL Low 6.02-18.40 [facility] [facility] Comment on above: Order Comment: Order Date: 08/19/24 Order Info: [id number] - CMP Order Info: [id number] - MG Order Info: [id number] - TIBC Order Info: [id number] - FE Order Info: [id number] - LUKE Order Info: [id number] - FOLS N Performed By: #### L 500.4050, L501.5200, L503.0105, L503.6550, L509.1000, L503.6150, L506.0250, L100.0100, L503.6075, L506.1000 #### [facility] [address] [facility] [place], [place], [id number] Magnesiumon 02-26-2025 Magnesium [Mass/Vol] 2.1 mg/dL Normal 1.5-2.2 [facility] Comment on above: Performed By: #### L 500.4050, L501.5200, L503.0105, L503.6550, L509.1000, L503.6150, L506.0250, L100.0100, L503.6075, L506.1000 #### [facility] [address] [facility] [place], [place], [id number] Magnesium measurement (mass/ volume)Ordered By: Tony Kay on 02-26-2025 Magnesium (Unsp spec) [Mass/Vol] 2.1 mg/dL 1.5-2.2 [facility] Potassium measurement (mass/ volume)Ordered By: Tony Kay on 02-26-2025 Potassium (Unsp spec) [Mass/Vol] 4.2 mmol/L 3.3-5.1 [facility] Serum creatinine measurement (mass/volume)Ordered By: Tony Kay on 02-26-2025 Creatinine [Mass/Vol] 1.08 mg/dL 0.70-1.20 [facility] Serum glucose measurement (m ass/volume)Ordered By: Tony Kay on 02-26-2025 Glucose [Mass/Vol] 134 mg/dL High 70-[address] [facility] Serum or plasma calcium tracy urement (mass/volume)Ordered By: Tony Kay on 02-26-2025 Calcium [Mass/Vol] 9.2 mg/dL 7.6-11.[address] [facility] Serum or plasma cortisol cliff surement (mass/volume)Ordered By: Tony Kay on 02-26-2025 Cortisol [Mass/Vol] 0.55 ug/dL Low 6.02-18.40 [facility] Serum or plasma urea nitroge n measurement (mass/volume)Ordered By: Tony Kay on 02-26-2025 Urea nitrogen [Mass/Vol] 24 mg/dL High 01-24 [facility] Sodium levelOrdered By: Tony Kay on 02-26-2025 Sodium [Moles/Vol] 140 mmol/L 133-[address] [facility] Anion gap in Serum or Plasma Ordered By: Tony Kay on 02-23-2025 Anion gap [Moles/Vol] 13 mmol/L 5-15 [facility] BUN/creatinine ratioOrdered By: Tony Kay on 02-23-2025 Urea nitrogen/Creatinine [Mass ratio] 22.0 mg/mg High 07-27 [facility] Basic Metabolic Profile (BMP )on 02-23-2025 BUN/CRE 22.0 RATIO High 07-27 [facility] Comment on above: Performed By: #### L 500.4050, L501.5200, L503.0105, L503.6550, L509.1000, L503.6150, L506.0250, L100.0100, L503.6075, L506.1000 #### [facility] [address] [place], [place], [address] Calcium [Mass/Vol] 9.4 mg/dL Normal 7.6-11.[address] [facility] Comment on above: Performed By: #### L 500.4050, L501.5200, L503.0105, L503.6550, L509.1000, L503.6150, L506.0250, L100.0100, L503.6075, L506.1000 #### [facility] [address] [place], [address] Chloride [Moles/Vol] 101 mmol/L Normal 98-108 [facility] Comment on above: Performed By: #### L 500.4050, L501.5200, L503.0105, L503.6550, L509.1000, L503.6150, L506.0250, L100.0100, L503.6075, L506.1000 #### [facility] [address] [facility] [place], [address] CO2 [Moles/Vol] 27.1 mmol/L Normal 21.0-32.0 [facility] Comment on above: Performed By: #### L 500.4050, L501.5200, L503.0105, L503.6550, L509.1000, L503.6150, L506.0250, L100.0100, L503.6075, L506.1000 #### [facility] [address] [facility] [place], [place], [phone] (528) Creatinine [Mass/Vol] 1.06 mg/dL Normal 0.70-1.20 [facility] Comment on above: Performed By: #### L 500.4050, L501.5200, L503.0105, L503.6550, L509.1000, L503.6150, L506.0250, L100.0100, L503.6075, L506.1000 #### [facility] [address] [facility] [place], [address] GAP 13 Normal 5-15 [facility] Comment on above: Performed By: #### L 500.4050, L501.5200, L503.0105, L503.6550, L509.1000, L503.6150, L506.0250, L100.0100, L503.6075, L506.1000 #### [facility] [address] [place], [address] GFR/1.73 sq M.predicted among non-blacks MDRD (S/P/Bld) [Vol rate/Area] 76 mL/min/{1.73_m2} Normal >60 [facility] Comment on above: Result Comment: mL/m in/1.73m2 CKD-EPI Creatinine Equation (2020) Performed By: #### L 500.4050, L501.5200, L503.0105, L503.6550, L509.1000, L503.6150, L506.0250, L100.0100, L503.6075, L506.1000 #### [facility] [address] [place], [address] Glucose [Mass/Vol] 148 mg/dL High 70-[address] [facility] Comment on above: Performed By: #### L 500.4050, L501.5200, L503.0105, L503.6550, L509.1000, L503.6150, L506.0250, L100.0100, L503.6075, L506.1000 #### [facility] [address] [place], [address] Potassium [Moles/Vol] 3.5 mmol/L Normal 3.3-5.1 [facility] Comment on above: Performed By: #### L 500.4050, L501.5200, L503.0105, L503.6550, L509.1000, L503.6150, L506.0250, L100.0100, L503.6075, L506.1000 #### [facility] [address] [place], [address] Sodium [Moles/Vol] 140 mmol/L Normal 133-[address] [facility] Comment on above: Performed By: #### L 500.4050, L501.5200, L503.0105, L503.6550, L509.1000, L503.6150, L506.0250, L100.0100, L503.6075, L506.1000 #### [facility] [address] [place], [place], [id number] Urea nitrogen [Mass/Vol] 23 mg/dL High 01-24 [facility] Comment on above: Performed By: #### L 500.4050, L501.5200, L503.0105, L503.6550, L509.1000, L503.6150, L506.0250, L100.0100, L503.6075, L506.1000 #### [facility] [address] [facility] [place], [place], [id number] Carbon dioxide, total [Moles /volume] in Central venous bloodOrdered By: Tony Kay on 02-23-2025 CO2 [Moles/Vol] 27.1 mmol/L 21.0-32.0 [facility] Chloride assayOrdered By: Diego Kay on 02-23-2025 Chloride [Moles/Vol] 101 mmol/L 98-108 [facility] Glomerular filtration rate ( GFR) estimation/1.73 sq m using serum, plasma, or whole bOrdered By: Tony Kay on 02-23-2025 GFR/1.73 sq M.predicted among non-blacks MDRD (S/P/Bld) [Vol rate/Area] 76 mL/min/{1.73_m2} >60 [facility] Comment on above: mL/min/1.73m2 CKD-EP I Creatinine Equation (2020) Magnesiumon 02-23-2025 Magnesium [Mass/Vol] 1.9 mg/dL Normal 1.5-2.2 [facility] Comment on above: Performed By: #### L 500.4050, L501.5200, L503.0105, L503.6550, L509.1000, L503.6150, L506.0250, L100.0100, L503.6075, L506.1000 #### [facility] [address] [place], [address] Magnesium measurement (mass/ volume)Ordered By: Tony Kay on 02-23-2025 Magnesium (Unsp spec) [Mass/Vol] 1.9 mg/dL 1.5-2.2 [facility] Potassium measurement (mass/ volume)Ordered By: Tony Kay on 02-23-2025 Potassium (Unsp spec) [Mass/Vol] 3.5 mmol/L 3.3-5.1 [facility] Serum creatinine measurement (mass/volume)Ordered By: Tony Kay on 02-23-2025 Creatinine [Mass/Vol] 1.06 mg/dL 0.70-1.20 [facility] Serum glucose measurement (m ass/volume)Ordered By: Tony Kay on 02-23-2025 Glucose [Mass/Vol] 148 mg/dL High 70-[address] [facility] Serum or plasma calcium tracy urement (mass/volume)Ordered By: Tony Kay on 02-23-2025 Calcium [Mass/Vol] 9.4 mg/dL 7.6-11.[address] [facility] Serum or plasma urea nitroge n measurement (mass/volume)Ordered By: Tony Kay on 02-23-2025 Urea nitrogen [Mass/Vol] 23 mg/dL High 4-19 [facility] Sodium levelOrdered By: Tony Kay on 02-23-2025 Sodium [Moles/Vol] 140 mmol/L 133-[address] [facility] CNOVon 02-17-2025 CNOV Office Visit (ENWSTR ) ----- BALTAZAR BAY ([id number]) 1955 M Date Time Provider Department 02/17/25 4:00 PM MILTON VILLANUEVA During your visit today, we recorded the following information about you: Pulse Blood pressure Weight 77/minute 122/70 114.3 kg Milton Villanueva MD 02/17/2025 6:53 PM Signed [facility] Follow up note History of Present Illness: Mr. Baltazar Bay is a 68 year old male coming today for follow up after initial visit on 11/28/24. He presented after self referral for evaluation of high aldosterone levels. Today he is accompanied by his He reports recommending his PCP to check aldosterone based on 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 He follows [facility] abstracts, [facility] and [facility] articles, and reports he thought the fluid retention was secondary to aldosterone and hence requested for these labs He has been on metolazone for 7 years for HTN, and on lasix 40 mg daily for 14 years Potassium 20 mEq 2 to 3 times daily - for the last 8 years He has been on triamterene- hydrochlorothiazide as well, which he reports to have stopped taking 3 weeks ago, as it did not help with fluid retention He was also on spironolactone in the past for 2 months, reports no much difference in fluid retention or blood pressure noted at that time either He has a hx of CKD stage 3a (eGFR 53 on the most recent CMP). Reports seeing nephrology locally with not much help, was advised to continue loop diuretics He is not on any typical antihypertensive medications at this time, and is only on loop diuretics which can lower BP anyway He also reports that he eats very low salt and if he increases the salt even by 100 mg, his weight increases Denied any arrhythmia/palpitations, nausea, vomiting, lightheadedness/dizziness , weight loss CT abdomen and pelvis with contrast at [facility] on 06/27/2023 shows unremarkable adrenal glands (scanned into system) Supplements include: Alpha lipoic acid 300 mg daily Krill oil 500 mg daily Lysine 500 mg daily Magnesium chelated 250 mg 2 tablets a day Vitamin B12 methylcobalamin 5000 mcg 3 times a week Vitamin D3 2000 units once daily Zinc 50 mg once daily Florastor once daily Probiotics once daily Interval history: 02/17/25: Patient was seen by Nephrology and was advised to stop lasix, so he does not have to take K supplements., Patient reported that he did not take his supplements for potassium on the night before the test Currently on 80 mEq of K supplements TID Past Medical History: PAST MEDICAL HISTORY Diagnosis Date Deafness in right ear External hemorrhoids without mention of complication 12/04/05 Hemorrhage of gastrointestinal tract, unspecified 12/04/05 Internal hemorrhoids without mention of complication 12/04/05 PMH - PAST MEDICAL HISTORY OF low testosterone blood test 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 Unspecified hemorrhoids without mention of complication Surgical History: PAST SURGICAL HISTORY Procedure Laterality Date COLONOSCOPY FLX DX W/COLLJ SPEC WHEN PFRMD 12/04/05 PAST SURGICAL HISTORY OF polyp removed posterior off back PAST SURGICAL HISTORY OF skin tim benign PAST SURGICAL HISTORY OF keloid 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 PAST SURGICAL HISTORY OF 05/24/15 removal of acoustic neuroma Family Medical History: FAMILY HISTORY Problem Relation Age of Onset Allergies Mother Ischemic Heart Disease Father No Ocular Disease No Family History Social History: Social History Tobacco Use Smoking status: Never Smokeless tobacco: Never Substance Use Topics Alcohol use: No Drug use: No Allergies: ALLERGIES Allergen Reactions Aspirin Rash Penicillins Rash Sulfamethoxazole Other: See Comments migraine Sulfasalazine Other: See Comments Current medications: Current Outpatient Medications Medication Sig potassium chloride ER (KLOR-CON) 20 mEq tablet Take 80 mEq by mouth three times a day. Gabapentin 100 mg tab Take 300 mg by mouth once daily. metOLazone (ZAROXOLYN) 5 mg tablet Take 5 mg by mouth once daily. cholecalciferol, vitamin D3, (VITAMIN D3 ORAL) Take by mouth once daily. Lactobacillus acidophilus (PROBIOTIC ORAL) Take by mouth once daily. Saccharomyces boulardii (FLORASTOR ORAL) Take by mouth once daily. [id number] o-ast [id number] mg cap zinc sulfate (ZINC-220) 220 mg (50 mg zinc) capsule furosemide (LASIX) 40 mg tablet Take 40 mg by mouth once daily. Magnesium 250 mg tab Take 250 mg by mouth twice daily. LORazepam (ATIVAN) 1 mg tablet Take 1 mg by mouth every 6 hours as needed. ALPHA LIPOIC ACID ORAL Take 600 mg by mouth once daily. cyanocobalamin, vitamin B-12, 5,000 mcg/mL drop Dissolve 5,000 mcg under the tongue. CPAP daily at bedtime. ferrous sulfat (more content not included)... Normal [facility] Anion gap in Serum or Plasma Ordered By: Tony Kay on 02-12-2025 Anion gap [Moles/Vol] 13 mmol/L 5-15 [facility] BUN/creatinine ratioOrdered By: Tony Kay on 02-12-2025 Urea nitrogen/Creatinine [Mass ratio] 19.6 mg/mg - [facility] Basic Metabolic Profile (BMP )on 02-12-2025 BUN/CRE 19.6 RATIO Normal 07-27 [facility] Comment on above: Performed By: #### L 500.4050, L501.5200, L503.0105, L503.6550, L509.1000, L503.6150, L506.0250, L100.0100, L503.6075, L506.1000 #### [facility] [address] [place], [address] Calcium [Mass/Vol] 9.4 mg/dL Normal 7.6-11.[address] [facility] Comment on above: Performed By: #### L 500.4050, L501.5200, L503.0105, L503.6550, L509.1000, L503.6150, L506.0250, L100.0100, L503.6075, L506.1000 #### [facility] [address] [place], [address] Chloride [Moles/Vol] 99 mmol/L Normal 98-108 [facility] Comment on above: Performed By: #### L 500.4050, L501.5200, L503.0105, L503.6550, L509.1000, L503.6150, L506.0250, L100.0100, L503.6075, L506.1000 #### [facility] [address] [place], [address] CO2 [Moles/Vol] 28.1 mmol/L Normal 21.0-32.0 [facility] Comment on above: Performed By: #### L 500.4050, L501.5200, L503.0105, L503.6550, L509.1000, L503.6150, L506.0250, L100.0100, L503.6075, L506.1000 #### [facility] [address] [place], [address] Creatinine [Mass/Vol] 1.09 mg/dL Normal 0.70-1.20 [facility] Comment on above: Performed By: #### L 500.4050, L501.5200, L503.0105, L503.6550, L509.1000, L503.6150, L506.0250, L100.0100, L503.6075, L506.1000 #### [facility] [address] [place], [address] GAP 13 Normal 5-15 [facility] Comment on above: Performed By: #### L 500.4050, L501.5200, L503.0105, L503.6550, L509.1000, L503.6150, L506.0250, L100.0100, L503.6075, L506.1000 #### [facility] [address] [facility] [facility] [place], [address] GFR/1.73 sq M.predicted among non-blacks MDRD (S/P/Bld) [Vol rate/Area] 73 mL/min/{1.73_m2} Normal >60 [facility] Comment on above: Result Comment: mL/m in/1.73m2 CKD-EPI Creatinine Equation (2020) Performed By: #### L 500.4050, L501.5200, L503.0105, L503.6550, L509.1000, L503.6150, L506.0250, L100.0100, L503.6075, L506.1000 #### [facility] [address] [place], [address] Glucose [Mass/Vol] 152 mg/dL High 70-[address] [facility] Comment on above: Performed By: #### L 500.4050, L501.5200, L503.0105, L503.6550, L509.1000, L503.6150, L506.0250, L100.0100, L503.6075, L506.1000 #### [facility] [address], [address] Potassium [Moles/Vol] 3.2 mmol/L Low 3.3-5.1 [facility] Comment on above: Performed By: #### L 500.4050, L501.5200, L503.0105, L503.6550, L509.1000, L503.6150, L506.0250, L100.0100, L503.6075, L506.1000 #### [facility] [address] [place], [place], [phone] (464) Sodium [Moles/Vol] 140 mmol/L Normal 133-[address] [facility] Comment on above: Performed By: #### L 500.4050, L501.5200, L503.0105, L503.6550, L509.1000, L503.6150, L506.0250, L100.0100, L503.6075, L506.1000 #### [facility] [address] [place], [place], [id number] (995) Urea nitrogen [Mass/Vol] 21 mg/dL High 4-19 [facility] Comment on above: Performed By: #### L 500.4050, L501.5200, L503.0105, L503.6550, L509.1000, L503.6150, L506.0250, L100.0100, L503.6075, L506.1000 #### [facility] [address] [facility] [place], [place], [id number] Carbon dioxide, total [Moles /volume] in Central venous bloodOrdered By: Tony Kay on 02-12-2025 CO2 [Moles/Vol] 28.1 mmol/L 21.0-32.0 [facility] Chloride assayOrdered By: Diego Kay on 02-12-2025 Chloride [Moles/Vol] 99 mmol/L 98-108 [facility] Glomerular filtration rate ( GFR) estimation/1.73 sq m using serum, plasma, or whole bOrdered By: Tony Kay on 02-12-2025 GFR/1.73 sq M.predicted among non-blacks MDRD (S/P/Bld) [Vol rate/Area] 73 mL/min/{1.73_m2} >60 [facility] Comment on above: mL/min/1.73m2 CKD-EP I Creatinine Equation (2020) Potassium measurement (mass/ volume)Ordered By: Tony Kay on 02-12-2025 Potassium (Unsp spec) [Mass/Vol] 3.2 mmol/L Low 3.3-5.1 [facility] Serum creatinine measurement (mass/volume)Ordered By: Tony Kay on 02-12-2025 Creatinine [Mass/Vol] 1.09 mg/dL 0.70-1.20 [facility] Serum glucose measurement (m ass/volume)Ordered By: Tony Kay on 02-12-2025 Glucose [Mass/Vol] 152 mg/dL High 70-[address] [facility] Serum or plasma calcium tracy urement (mass/volume)Ordered By: Tony Kay on 02-12-2025 Calcium [Mass/Vol] 9.4 mg/dL 7.6-11.[address] [facility] Serum or plasma urea nitroge n measurement (mass/volume)Ordered By: Tony Kay on 02-12-2025 Urea nitrogen [Mass/Vol] 21 mg/dL High 4-19 [facility] Sodium levelOrdered By: Tony Kay on 02-12-2025 Sodium [Moles/Vol] 140 mmol/L 133-[address] [facility] Anion gap in Serum or Plasma Ordered By: Tony Kay on 02-07-2025 Anion gap [Moles/Vol] 14 mmol/L 5-15 [facility] BUN/creatinine ratioOrdered By: Tony Kay on 02-07-2025 Urea nitrogen/Creatinine [Mass ratio] 18.1 mg/mg 10-20 [facility] Basic Metabolic Profile (BMP )on 02-07-2025 BUN/CRE 18.1 RATIO Normal - [facility] Comment on above: Performed By: #### L 500.4050, L501.5200, L503.0105, L503.6550, L509.1000, L503.6150, L506.0250, L100.0100, L503.6075, L506.1000 #### [facility] [address], [address] Calcium [Mass/Vol] 9.6 mg/dL Normal 7.6-11.[address] [facility] Comment on above: Performed By: #### L 500.4050, L501.5200, L503.0105, L503.6550, L509.1000, L503.6150, L506.0250, L100.0100, L503.6075, L506.1000 #### [facility] [address] [facility], [address] Chloride [Moles/Vol] 95 mmol/L Low 98-108 [facility] Comment on above: Performed By: #### L 500.4050, L501.5200, L503.0105, L503.6550, L509.1000, L503.6150, L506.0250, L100.0100, L503.6075, L506.1000 #### [facility] [address] [facility] [place], [address] CO2 [Moles/Vol] 30.6 mmol/L Normal 21.0-32.0 [facility] Comment on above: Performed By: #### L 500.4050, L501.5200, L503.0105, L503.6550, L509.1000, L503.6150, L506.0250, L100.0100, L503.6075, L506.1000 #### [facility] [address] [facility] [address] [place], [address] Creatinine [Mass/Vol] 1.19 mg/dL Normal 0.70-1.20 [facility] Comment on above: Performed By: #### L 500.4050, L501.5200, L503.0105, L503.6550, L509.1000, L503.6150, L506.0250, L100.0100, L503.6075, L506.1000 #### [facility] [address] [place], [address] GAP 14 Normal 5-15 [facility] Comment on above: Performed By: #### L 500.4050, L501.5200, L503.0105, L503.6550, L509.1000, L503.6150, L506.0250, L100.0100, L503.6075, L506.1000 #### [facility] [address] [place], [address] GFR/1.73 sq M.predicted among non-blacks MDRD (S/P/Bld) [Vol rate/Area] 66 mL/min/{1.73_m2} Normal >60 [facility] Comment on above: Result Comment: mL/m in/1.73m2 CKD-EPI Creatinine Equation (2020) Performed By: #### L 500.4050, L501.5200, L503.0105, L503.6550, L509.1000, L503.6150, L506.0250, L100.0100, L503.6075, L506.1000 #### [facility] [address] [place], [address] Glucose [Mass/Vol] 146 mg/dL High 70-[address] [facility] Comment on above: Performed By: #### L 500.4050, L501.5200, L503.0105, L503.6550, L509.1000, L503.6150, L506.0250, L100.0100, L503.6075, L506.1000 #### [facility] [address] [place], [address] Potassium [Moles/Vol] 3.0 mmol/L Low 3.3-5.1 [facility] Comment on above: Result Comment: Hemo lysis present, Results??could be affected. ?? Performed By: #### L 500.4050, L501.5200, L503.0105, L503.6550, L509.1000, L503.6150, L506.0250, L100.0100, L503.6075, L506.1000 #### [facility] [address] [place], [place], [phone] (867) Sodium [Moles/Vol] 140 mmol/L Normal 133-[address] [facility] Comment on above: Performed By: #### L 500.4050, L501.5200, L503.0105, L503.6550, L509.1000, L503.6150, L506.0250, L100.0100, L503.6075, L506.1000 #### [facility] [address] [facility] [place], [place], [phone] (646) Urea nitrogen [Mass/Vol] 22 mg/dL High 4-19 [facility] Comment on above: Performed By: #### L 500.4050, L501.5200, L503.0105, L503.6550, L509.1000, L503.6150, L506.0250, L100.0100, L503.6075, L506.1000 #### [facility] [address] [facility] [place], [place], [id number] Carbon dioxide, total [Moles /volume] in Central venous bloodOrdered By: Tony Kay on 02-07-2025 CO2 [Moles/Vol] 30.6 mmol/L 21.0-32.0 [facility] Chloride assayOrdered By: Diego Kay on 02-07-2025 Chloride [Moles/Vol] 95 mmol/L Low 98-108 [facility] Glomerular filtration rate ( GFR) estimation/1.73 sq m using serum, plasma, or whole bOrdered By: Tony Kay on 02-07-2025 GFR/1.73 sq M.predicted among non-blacks MDRD (S/P/Bld) [Vol rate/Area] 66 mL/min/{1.73_m2} >60 [facility] Comment on above: mL/min/1.73m2 CKD-EP I Creatinine Equation (2020) Potassium measurement (mass/ volume)Ordered By: Tnoy Kay on 02-07-2025 Potassium (Unsp spec) [Mass/Vol] 3.0 mmol/L Low 3.3-5.1 [facility] Comment on above: Hemolysis present, R esults could be affected. Serum creatinine measurement (mass/volume)Ordered By: Tony Kay on 02-07-2025 Creatinine [Mass/Vol] 1.19 mg/dL 0.70-1.20 [facility] Serum glucose measurement (m ass/volume)Ordered By: Tony Kay on 02-07-2025 Glucose [Mass/Vol] 146 mg/dL High 70-[address] [facility] Serum or plasma calcium tracy urement (mass/volume)Ordered By: Tony Kay on 02-07-2025 Calcium [Mass/Vol] 9.6 mg/dL 7.6-11.[address] [facility] Serum or plasma urea nitroge n measurement (mass/volume)Ordered By: Tony Kay on 02-07-2025 Urea nitrogen [Mass/Vol] 22 mg/dL High 4-19 [facility] Sodium levelOrdered By: Tony Kay on 02-07-2025 Sodium [Moles/Vol] 140 mmol/L 133-[address] [facility] [address] Abd/Pelvis W/WO Contrasto n 02-04-2025 CT Abd/Pelvis W/WO Contrast [facility] [address] [place] [id number] Abd/Pelvis W/WO Contrast MR#: [id number] Acct: [id number] Name: BALTAZAR BAY Rep #: [id number] : 1955 M 69 From: Tim Orozco MD PCP: Dr. Tony Kay MD Status: REG CLI Study: CT Abd/Pelvis W/WO Contrast Date of Exam: 01/08 Exam# [id number] Ordering Dr: Tony Kay MD PROCEDURE: CT ABD/PELVIS W/WO CONTRAST, 02/04/2025 REASON FOR EXAM: RENAL CYST TECHNIQUE: CT abdomen and pelvis was performed with and without IV contrast. Multiplanar reformats were generated. CONTRAST: Isovue-300 VOLUME: 99mL RADIATION DOSE SUMMARY: CTDlvol: 22.59+ 9.11+ 22.64+ 20.08+ 22.72+ 19.38 mGy DLP: 3059.39 mGycm One or more dose reduction techniques were used (e.g., Automated exposure control, adjustment of the mA and/or kV according to patient size, use of iterative reconstruction technique). COMPARISON: 01/10/2025 and prior FINDINGS: Lung bases: Mild atelectasis/scarring.. Liver: Steatosis. Spleen: Unremarkable. Gallbladder: Unremarkable. Pancreas: Unremarkable. Adrenals: Unremarkable. Kidneys: Mild symmetric nonspecific perinephric stranding. Ill-defined partially exophytic lateral RIGHT interpolar renal lesion of concern on previous ultrasound is difficult to discretely measure but approximates 2.1 x 1.4 x 1.4 cm with a punctate calcification along the superomedial aspect. This is hyperattenuating on noncontrast images, measuring 45 Hounsfield units. Attenuation is 62 Hounsfield units in the corticomedullary phase, 52 Hounsfield units in the nephrographic phase and 43 Hounsfield units in the delayed phase. This was also present on 06/27/2023 and measured fluid density at that time, measuring 2.9 x 1.4 x 1.6 cm. Additional 0.7 cm high-density lesion along the anterior RIGHT lower pole is too small to definitively characterize but likely to reflect a hemorrhagic or proteinaceous cyst. Bowel: Unremarkable. Normal caliber appendix. Lymph nodes: Unremarkable. Vasculature: Trace atherosclerosis. Peritoneum: Unremarkable. Bladder: Underdistended and suboptimally evaluated, grossly unremarkable. Reproductive Organs: Prostatomegaly. Body Wall: Tiny fat containing umbilical hernia.. Bones: Presumed degenerative sclerosis of the bilateral SI joints. Multilevel spondylosis.. CT/CT Abd/Pelvis W/WO Contrast IMPRESSION: 1. Slightly decreased size of the RIGHT renal lesion of concern since 06/27/2023, measuring fluid density at that time, although demonstrating indeterminate enhancement versus pseudoenhancement of roughly 17 HU on the current exam. Given this, the lesion remains indeterminate with continued follow-up in 6-12 months recommended. Multiphase renal protocol MRI with and without contrast (to include subtraction sequences) could provide additional diagnostic information, if there is no contraindication. 2. Diffuse hepatic steatosis. Correlate for clinical and laboratory evidence of chronic liver disease. 3. Additional description as above. Reading Location: [id number] CC: Dr. Tony Kay MD Beater Out Leveling Machine: Signed [facility] Abdomen Limitedon 01-10-2025 Abdomen Limited [facility] [address] [place], [place] [address] Abdomen Limited MR#: [id number] Acct: [id number] Name: BALTAZAR BAY Rep #: [id number] : 1955 M 69 From: Sebastián Amezcua i, DO PCP: Dr. Tony Kay MD Status: REG CLI Study: Abdomen Limited Date of Exam: 01/10/25 Exam# [id number] Ordering Dr: Tony Kay MD PROCEDURE: Abdominal ultrasound. 01/10/2025 REASON FOR EXAM: FATTY INFILTRATION TECHNIQUE: Ultrasound images of the upper abdomen were obtained. COMPARISON: No prior relevant study available. FINDINGS: The visualized portions of the pancreas show no specific abnormality. Segmentally visualized portions of the liver demonstrate coarse echotexture. No solid liver lesion. Portions of the liver are not well evaluated on this study. The gallbladder is sonographically unremarkable. Negative sonographic Doe's sign. The common duct measures 3 mm. The right kidney is 11.8 cm in length. Cortical-medullary differentiation is maintained. There is a complex partially exophytic lesion of the right kidney measuring 2.3 cm. This appears to contain an internal 5 mm calcification. US/Abdomen Limited IMPRESSION: Sonographically unremarkable gallbladder. Negative sonographic Doe's sign. Normal caliber common duct at 3 mm. Coarse liver echotexture suggesting fatty metamorphosis. No definite discrete liver lesion, although evaluation is limited on this study. No obstructive uropathy right kidney. There is a partially exophytic 2.3 cm mildly hypoechoic lesion of the right kidney, with internal debris in 5 mm internal calcification. This could represent a complex cyst with a partially solid lesion not excluded. Recommend short-term follow-up dedicated renal CT without and with intravenous contrast. Reading Location: [facility] CC: Dr. Tony Kay MD Beater Out Leveling Machine: Signed [facility] CNOVon 01-06-2025 [facility] ----- BALTAZAR BAY ([id number]) 1955 M Date Time Provider Department 01/06/25 11:00 AM [facility] During your visit today, we recorded the following information about you: Pulse Blood pressure 79/minute 153/83 Drew Rhodes DO 01/06/2025 1:00 PM Signed NEPHROLOGY CLINIC INITIAL VISIT PATIENT NAME: Baltazar Bay Consultation requested by Dr. Villanueva for an opinion regarding elevated Cr. My final recommendations will be communicated back to the requesting physician by way of shared Medical record or letter to requesting physician via US mail. ASSESSMENT/PLAN Elevated Cr 1.2 (most recent) previously 1.6 -diuretic induced, if edema is not improving with aggressive diuretics, than its not diuretic responsive and he should stop -he started diuretics (spironolactone, lasix, bumex metolazone) ~12 years ago for mild hypertension and LE edema. No hx of HF, CKD, Liver disease Plan -explained in depth the kidney physiology, hormone regulation and ability of the kidney to re-establish salt balance in steady state -advised stop all diuretics, monitor bp and weight and swelling at home, if BP elevated would choose mari/arb/ccb not a diuretic given complications from this (hypokalemia) -follow up as needed HPI: 69 year-old male referred by Dr. Villanueva for CKD3, evaluated in the endocrinology office for elevated aldosterone levels as a self-referral. He reportedly does a lot of his own research and has been on multiple diuretics and potassium replacement for many years, including triamterene thiazide, which he had recently stopped taking. He was on spironolactone but reported not much difference and breast tenderness. - At that visit, he also reported he had stage 3 kidney disease. [facility] but did not benefit much from that visit apparently. -He has no HF, Liver disease or Kidney disease, he take loop + thiazide daily for over 10 years and is fixated on salt related weight gain. Diagnostic Results: - Blood work: - Creatinine: 1.4 (reference range 0.7-1.3) - eGFR: >60 - Magnesium: 2.7 (elevated) - Renin: 11.6 - Aldosterone: 82 - PTH: 58 (within normal range) - BUN: 27 - Sodium: 137 - Bicarbonate: Normal - Imaging: - CT scan of the abdomen (2022): Shows a small calculus in the right kidney, small cyst in the right kidney, otherwise unremarkable. Current Medications: - Metolazone - Lorazepam - Supplements: Carnitine, chondroitin, B12, alpha lipoic acid, glucosamine, potassium citrate, and gabapentin. Liver function test are normal Echocardiogram in 03/2023 was showing normal LV size and function, estimated EF was 60%, stage I diastolic disorder. Current Outpatient Medications Medication Instructions ALPHA LIPOIC ACID ORAL 600 mg, DAILY ARGININE HCL, L-ARGININE, ORAL 1,800 mg, DAILY CALCIUM CARBONATE/VITAMIN D3 (VITAMIN D-3 ORAL) 4,000 Units, DAILY cholecalciferol, vitamin D3, (VITAMIN D3 ORAL) DAILY CHONDROITIN SULFATE A ORAL 1,500 mg, DAILY COENZYME [id number] ORAL 600 mg, 2 TIMES DAILY CPAP AT BEDTIME cyanocobalamin (vitamin B-12) 5,000 mcg Doxepin 6 mg tab ferrous sulfate (IRON) 325 mg (65 mg iron) tablet furosemide (LASIX) 40 mg, DAILY Gabapentin 300 mg ORAL Tab 1 tablet, DAILY GLUCOSAMINE HCL ORAL 1,500 mg, DAILY [id number]-[id number] o-ast [id number] mg cap Lactobacillus acidophilus (PROBIOTIC ORAL) DAILY LEVOCARNITINE (CARNITINE ORAL) 1,000 mg, 2 TIMES DAILY LORazepam (ATIVAN) 1 mg, EVERY 6 HOURS NEEDED LYSINE ORAL 2,000 mg, DAILY Magnesium 250 mg, 2 TIMES DAILY metOLazone (ZAROXOLYN) 5 mg, DAILY MULTIVITAMIN TAB Take one(1) tablet daily by mouth OMEGA 3 550 MG CAP Take one(1) tablet daily by mouth potassium citrate ER (UROCIT-K) 10 mEq (1,080 mg) TbER 20 mEq, 2 TIMES DAILY Saccharomyces boulardii (FLORASTOR ORAL) DAILY triamterene-hydroCHLOROth iazide (MAXZIDE-25) 37.5-25 mg per tablet zinc sulfate (ZINC-220) 220 mg (50 mg zinc) capsule Social History Tobacco Use Smoking status: Never Smokeless tobacco: Never Substance Use Topics Alcohol use: No Drug use: No FAMILY HISTORY Problem Relation Age of Onset Allergies Mother Ischemic Heart Disease Father No Ocular Disease No Family History PAST SURGICAL HISTORY Procedure Laterality Date COLONOSCOPY FLX DX W/COLLJ SPEC WHEN PFRMD 12/04/05 PAST SURGICAL HISTORY OF polyp removed posterior off back PAST SURGICAL HISTORY OF skin tim benign PAST SURGICAL HISTORY OF keloid 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 @IODETAILS@ Intake/Output None GENERAL: no distress EXTREMI (more content not included)... Normal [facility] UA DIP, URINE (POC)on 2024 BILIRUBIN UA (POCT) Negative Negative [facility] CLARITY UA (POCT) Clear [facility] COLOR UA (POCT) Yellow [facility] GLUCOSE UA (POCT) Negative Negative mg/dL [facility] Hemoglobin Ql (U) Negative Negative [facility] KETONE UA (POCT) Negative Negative mg/dL [facility] LEUKOCYTES UA (POCT) Negative [facility] NITRITE UA (POCT) Negative Negative [facility] PH UA (POCT) 7 4.5 - 8.0 [facility] Protein Ql (U) Negative Negative mg/dL [facility] SPECIFIC GRAVITY UA (POCT) 1.02 1.005 - 1.030 [facility] UROBILINOGEN UA (POCT) 0.2 Raysa l E.U./dL [facility] Location:[facility], [address], [place], [address] [facility] Anion gap in Serum or Plasma Ordered By: Tony Kay on 01-03-2025 Anion gap [Moles/Vol] 14 mmol/L 02-19 [facility] BUN/creatinine ratioOrdered By: Tony Kay on 01-03-2025 Urea nitrogen/Creatinine [Mass ratio] 19.7 mg/mg 07-27 [facility] Basic Metabolic Profile (BMP )on 01-03-2025 BUN/CRE 19.7 RATIO Normal 07-27 [facility] Comment on above: Performed By: #### L 500.4050, L501.5200, L503.0105, L503.6550, L509.1000, L503.6150, L506.0250, L100.0100, L503.6075, L506.1000 #### [facility] [address] [place], [address] Calcium [Mass/Vol] 9.8 mg/dL Normal 7.6-11.[address] [facility] Comment on above: Performed By: #### L 500.4050, L501.5200, L503.0105, L503.6550, L509.1000, L503.6150, L506.0250, L100.0100, L503.6075, L506.1000 #### [facility] [address] [place], [address] Chloride [Moles/Vol] 95 mmol/L Low 98-108 [facility] Comment on above: Performed By: #### L 500.4050, L501.5200, L503.0105, L503.6550, L509.1000, L503.6150, L506.0250, L100.0100, L503.6075, L506.1000 #### [facility] [address] [place], [address] CO2 [Moles/Vol] 29.4 mmol/L Normal 21.0-32.0 [facility] Comment on above: Performed By: #### L 500.4050, L501.5200, L503.0105, L503.6550, L509.1000, L503.6150, L506.0250, L100.0100, L503.6075, L506.1000 #### [facility] [address] [place], [place], [phone] (588) Creatinine [Mass/Vol] 1.20 mg/dL Normal 0.70-1.20 [facility] Comment on above: Performed By: #### L 500.4050, L501.5200, L503.0105, L503.6550, L509.1000, L503.6150, L506.0250, L100.0100, L503.6075, L506.1000 #### [facility] [address] [place], [place], [phone] (062) GAP 14 Normal 5-15 [facility] Comment on above: Performed By: #### L 500.4050, L501.5200, L503.0105, L503.6550, L509.1000, L503.6150, L506.0250, L100.0100, L503.6075, L506.1000 #### [facility] [address] [place], [place], [phone] (145) GFR/1.73 sq M.predicted among non-blacks MDRD (S/P/Bld) [Vol rate/Area] 65 mL/min/{1.73_m2} Normal >60 [facility] Comment on above: Result Comment: mL/m in/1.73m2 CKD-EPI Creatinine Equation (2020) Performed By: #### L 500.4050, L501.5200, L503.0105, L503.6550, L509.1000, L503.6150, L506.0250, L100.0100, L503.6075, L506.1000 #### [facility] [address] [place], [address] Glucose [Mass/Vol] 154 mg/dL High 70-[address] [facility] Comment on above: Performed By: #### L 500.4050, L501.5200, L503.0105, L503.6550, L509.1000, L503.6150, L506.0250, L100.0100, L503.6075, L506.1000 #### [facility] [address] [place], [address] Potassium [Moles/Vol] 3.7 mmol/L Normal 3.3-5.1 [facility] Comment on above: Result Comment: Hemo lysis present, Results??could be affected. ?? Performed By: #### L 500.4050, L501.5200, L503.0105, L503.6550, L509.1000, L503.6150, L506.0250, L100.0100, L503.6075, L506.1000 #### [facility] [address] [place], [address] Sodium [Moles/Vol] 139 mmol/L Normal 133-[address] [facility] Comment on above: Performed By: #### L 500.4050, L501.5200, L503.0105, L503.6550, L509.1000, L503.6150, L506.0250, L100.0100, L503.6075, L506.1000 #### [facility] [address] [place], [address] Urea nitrogen [Mass/Vol] 24 mg/dL High 4-19 [facility] Comment on above: Performed By: #### L 500.4050, L501.5200, L503.0105, L503.6550, L509.1000, L503.6150, L506.0250, L100.0100, L503.6075, L506.1000 #### [facility] [address] [place], [address] Carbon dioxide, total [Moles /volume] in Central venous bloodOrdered By: Tony Kay on 01-03-2025 CO2 [Moles/Vol] 29.4 mmol/L 21.0-32.0 [facility] Chloride assayOrdered By: Diego Kay on 01-03-2025 Chloride [Moles/Vol] 95 mmol/L Low 98-108 [facility] GFR/1.73 sq M.predicted abi g non-blacks MDRD (S/P/Bld) [Vol rate/Area]Ordered By: Tony Kay on 01-03-2025 Estimated GFR (MDRD) Non-Af Amer 65 >60 [facility] Comment on above: mL/min/1.73m2 CKD-EP I Creatinine Equation (2020) Glomerular filtration rate ( GFR) estimation/1.73 sq m using serum, plasma, or whole bOrdered By: Tony Kay on 01-03-2025 GFR/1.73 sq M.predicted among non-blacks MDRD (S/P/Bld) [Vol rate/Area] 65 mL/min/{1.73_m2} >60 [facility] Comment on above: mL/min/1.73m2 CKD-EP I Creatinine Equation (2020) Potassium (Unsp spec) [Mass/ Vol]Ordered By: Tony Kay on 01-03-2025 Potassium [Moles/Vol] 3.7 mmol/L 3.3-5.1 [facility] Comment on above: Hemolysis present, R esults could be affected. Potassium measurement (mass/ volume)Ordered By: Tony Kay on 01-03-2025 Potassium (Unsp spec) [Mass/Vol] 3.7 mmol/L 3.3-5.1 [facility] Comment on above: Hemolysis present, R esults could be affected. Serum creatinine measurement (mass/volume)Ordered By: Tony Kay on 01-03-2025 Creatinine [Mass/Vol] 1.20 mg/dL 0.70-1.20 [facility] Serum glucose measurement (m ass/volume)Ordered By: Tony Kay on 01-03-2025 Glucose [Mass/Vol] 154 mg/dL High 70-[address] [facility] Serum or plasma calcium tracy urement (mass/volume)Ordered By: Tony Kay on 01-03-2025 Calcium [Mass/Vol] 9.8 mg/dL 7.6-11.[address] [facility] Serum or plasma urea nitroge n measurement (mass/volume)Ordered By: Toyn Kay on 01-03-2025 Urea nitrogen [Mass/Vol] 24 mg/dL High 4-19 [facility] Sodium levelOrdered By: Tony Kay on 01-03-2025 Sodium [Moles/Vol] 139 mmol/L 133-[address] [facility] ACTH Plas-mCncon 01-02-2025 Corticotropin (P) [Mass/Vol] 20.4 pg/mL Normal 7.2-63.3 [facility] Comment on above: Order Comment: Kirsten tomlin Type: BLOOD SPECIMEN Ordering Facility: [facility] Address: [address] [place] [address] Result Comment: ACTH Reference Range: 7-10 am: 7.2 - 63.3 pg/mL Performed By: #### 2 141-0 #### [facility] CLIA [id number] [address] [place] [address] [place] ALDOSTERONE/DIRECT RENIN RAT IOon 01-02-2025 MELISSA RENIN RATIO 0.4 Normal <3.8 [facility] Comment on above: Order Comment: Kirsten tomlin Type: BLOOD SPECIMEN Ordering Facility: [facility] Address: [address] [place] [address] Result Comment: A ra kimo of aldosterone in ng/dL to direct renin in pg/mL greater than or equal to 3.8 is a positive screening test result for primary aldosteronism, when aldosterone is greater than or equal to 15 ng/dL. Performed By: #### A LDREN #### [facility] CLIA [id number] [address] [place] [address] [place] Aldosterone [Mass/Vol] 36.9 ng/dL High 0.0-<35.4 [facility] Comment on above: Order Comment: Kirsten tomlin Type: BLOOD SPECIMEN Ordering Facility: [facility] Address: [address] [place] [address] Result Comment: The reference interval for serum/plasma aldosterone is based on a normal sodium intake and upright position. High sodium intake may suppress aldosterone and low sodium intake may increase aldosterone. The supine reference interval is <23.7 ng/dL. A ratio of aldosterone in ng/dL to direct renin in pg/mL greater than or equal to 3.8 is a positive screening test result for primary aldosteronism, when aldosterone is greater than or equal to 15 ng/dL. Performed By: #### A LDREN #### [facility] CLIA [id number] [address] [place] [address] [place] DIRECT RENIN 97.3 pg/mL High 3.6-81.6 [facility] Comment on above: Order Comment: Kirsten tomlin Type: BLOOD SPECIMEN Ordering Facility: [facility] Address: [address] [place] [address] Result Comment: The reference interval for direct renin is based on an upright position. The supine reference intervals are: Age <41 years: 3.2-33.2 pg/mL Age >=41 years: 2.5-45.1 pg/mL A ratio of aldosterone in ng/dL to direct renin in pg/mL greater than or equal to 3.8 is a positive screening test result for primary aldosteronism, when aldosterone is greater than or equal to 15 ng/dL. Performed By: #### A LDREN #### [facility] CLIA [id number] [address] [place] [address] [place] PATIENT UPRIGHT OR SUPINE Upright Normal [facility] Comment on above: Order Comment: Kirsten tomlin Type: BLOOD SPECIMEN Ordering Facility: [facility] Address: [address] [place] [address] Performed By: #### A LDREN #### [facility] CLIA [id number] [address] [place] [address] [place] Corturfino Yeboah 01-03-20 25 Cortisol [Mass/Vol] 12.0 ug/dL Normal 4.8-19.5 [facility] Comment on above: Order Comment: Kirsten tomlin Type: BLOOD SPECIMEN Ordering Facility: [facility] Address: [address], [place] [address] Result Comment: Prov ided reference range is from 6-10 AM sample collection time. Cortisol Reference Range: 6-10 AM = 4.8-19.5 ug/dL, 4-8 PM = 2.5-11.9 ug/dL Performed By: #### 2 143-6, K1 #### [facility] CLIA [id number] [address] [place] [address] [place] POTASSIUMon 01-02-2025 Potassium [Moles/Vol] 3.0 mmol/L Low 3.7-5.1 [facility] Comment on above: Order Comment: Speci men Type: BLOOD SPECIMEN Ordering Facility: [facility] Address: [address] [place] [address] Performed By: #### 2 143-6, K1 #### [facility] CLIA [id number] [address] [place] [address] [place] BUN/creatinine ratioOrdered By: Roman Salvador on 12-04-2024 Urea nitrogen/Creatinine [Mass ratio] 22.9 mg/mg High 10-20 [facility] Basic Metabolic Profile (BMP )on 12-04-2024 Anion gap [Moles/Vol] 13 mmol/L Normal 5-15 [facility] Comment on above: Order Comment: Order Date: 08/19/24 Order Info: 0786-1 - CMP Order Info: 96978-4 - MG Order Info: 2500-7 - TIBC Order Info: 2498-4 - FE Order Info: 2276-4 - LUKE Order Info: 2284-8 - FOLS N Performed By: #### L 500.4050, L501.5200, L503.0105, L503.6550, L509.1000, L503.6150, L506.0250, L100.0100, L503.6075, L506.1000 #### [facility] [address] [place], [address] BUN/CRE 22.9 RATIO High - [facility] Comment on above: Order Comment: Order Date: 08/19/24 Order Info: 0786 - CMP Order Info: [id number] - MG Order Info: 2500-04 - TIBC Order Info: 2498-01 - FE Order Info: 2276-01 - LUKE Order Info: 8 - FOLS N Performed By: #### L 500.4050, L501.5200, L503.0105, L503.6550, L509.1000, L503.6150, L506.0250, L100.0100, L503.6075, L506.1000 #### [facility] [address] [place], [place], [id number] Calcium [Mass/Vol] 10.0 mg/dL Normal 7.6-11.[address] [facility] Comment on above: Order Comment: Order Date: 08/19/24 Order Info: 785-10 - CMP Order Info: [id number] - MG Order Info: 2500-04 TIBC Order Info: 2498-01 - FE Order Info: 2276-01 - LUKE Order Info: 2284-05 - FOLS N Performed By: #### L 500.4050, L501.5200, L503.0105, L503.6550, L509.1000, L503.6150, L506.0250, L100.0100, L503.6075, L506.1000 #### [facility] [address] [place], [place], [phone] Chloride [Moles/Vol] 94 mmol/L Low 96-108 [facility] Comment on above: Order Comment: Order Date: 08/19/24 Order Info: 07 - CMP Order Info: [id number] - MG Order Info: 2500-04 - TIBC Order Info: 2498-01 - FE Order Info: 2276-01 - LUKE Order Info: 2284-05 - FOLS N Performed By: #### L 500.4050, L501.5200, L503.0105, L503.6550, L509.1000, L503.6150, L506.0250, L100.0100, L503.6075, L506.1000 #### [facility] [address] [place], [place], [id number] CO2 [Moles/Vol] 31.3 mmol/L High 22.0-29.0 [facility] Comment on above: Order Comment: Order Date: 08/19/24 Order Info: 86-1 - CMP Order Info: [id number] - MG Order Info: 7 - TIBC Order Info: 2498-01 - FE Order Info: 2276-01 - LUKE Order Info: 8 - FOLS N Performed By: #### L 500.4050, L501.5200, L503.0105, L503.6550, L509.1000, L503.6150, L506.0250, L100.0100, L503.6075, L506.1000 #### [facility] [address] [place], [place], [phone] Creatinine [Mass/Vol] 1.2 mg/dL Normal 0.8-1.3 [facility] Comment on above: Order Comment: Order Date: 08/19/24 Order Info: 785-1 - CMP Order Info: [id number] - MG Order Info: 7 - TIBC Order Info: 2498-01 - FE Order Info: 2276-01 - LUKE Order Info: 2284-05 - FOLS N Performed By: #### L 500.4050, L501.5200, L503.0105, L503.6550, L509.1000, L503.6150, L506.0250, L100.0100, L503.6075, L506.1000 #### [facility] [address] [place], [place], [id number] GFR/1.73 sq M.predicted among non-blacks MDRD (S/P/Bld) [Vol rate/Area] 64 mL/min/{1.73_m2} Normal >60 [facility] Comment on above: Order Comment: Order Date: 08/19/24 Order Info: 86-1 - CMP Order Info: 43799-2 - MG Order Info: 25007 - TIBC Order Info: 2498-01 - FE Order Info: 2276-01 - LUKE Order Info: 8 - FOLS N Result Comment: mL/m in/1.73m2 CKD-EPI Creatinine Equation (2020) Performed By: #### L 500.4050, L501.5200, L503.0105, L503.6550, L509.1000, L503.6150, L506.0250, L100.0100, L503.6075, L506.1000 #### [facility] [address], [address] Glucose [Mass/Vol] 135 mg/dL High 70-[address] [facility] Comment on above: Order Comment: Order Date: 08/19/24 Order Info: 0786- - CMP Order Info: [id number] - MG Order Info: 2500-04 - TIBC Order Info: 2498-01 - FE Order Info: 2276-01 - LUKE Order Info: 2284-05 - FOLS N Performed By: #### L 500.4050, L501.5200, L503.0105, L503.6550, L509.1000, L503.6150, L506.0250, L100.0100, L503.6075, L506.1000 #### [facility] [address] [facility], [address] Potassium [Moles/Vol] 3.3 mmol/L Normal 3.3-5.1 [facility] Comment on above: Order Comment: Order Date: 08/19/24 Order Info: 0786- - CMP Order Info: [id number] - MG Order Info: 2500-04 - TIBC Order Info: 2498-01 - FE Order Info: 2276-01 - LUKE Order Info: 2284-05 - FOLS N Performed By: #### L 500.4050, L501.5200, L503.0105, L503.6550, L509.1000, L503.6150, L506.0250, L100.0100, L503.6075, L506.1000 #### [facility] [address] [place], [place], [address] Sodium [Moles/Vol] 138 mmol/L Normal 133-[address] [facility] Comment on above: Order Comment: Order Date: 08/19/24 Order Info: 0786-1 - CMP Order Info: 04291-1 - MG Order Info: 7 - TIBC Order Info: 2498-01 - FE Order Info: 2276-01 - LUKE Order Info: 2284-05 - FOLS N Performed By: #### L 500.4050, L501.5200, L503.0105, L503.6550, L509.1000, L503.6150, L506.0250, L100.0100, L503.6075, L506.1000 #### [facility] [address] [facility] [place], [place], [address] (850) Urea nitrogen [Mass/Vol] 28 mg/dL High 4-19 [facility] Comment on above: Order Comment: Order Date: 08/19/24 Order Info: 0786- - CMP Order Info: 29439-9 - MG Order Info: 2500-04 - TIBC Order Info: 2498-01 - FE Order Info: 2276-01 - LUKE Order Info: 2284-05 - FOLS N Performed By: #### L 500.4050, L501.5200, L503.0105, L503.6550, L509.1000, L503.6150, L506.0250, L100.0100, L503.6075, L506.1000 #### [facility] [address] [place], [place], [address] Carbon dioxide measurementOr dered By: Roman Salvador on 12-04-2024 CO2 [Moles/Vol] 31.3 mmol/L High 22.0-29.0 [facility] Chloride measurementOrdered By: Roman Salvador on 12-04-2024 Chloride [Moles/Vol] 94 mmol/L Low 96-108 [facility] Creatinine [Moles/Vol]Ordere d By: Roman Salvador on 12-04-2024 Creatinine [Mass/Vol] 1.2 mg/dL 0.8-1.3 [facility] GFR/1.73 sq M.predicted abi g non-blacks MDRD (S/P/Bld) [Vol rate/Area]Ordered By: Roman Salvador on 12-04-2024 Estimated GFR (MDRD) Non-Af Amer 64 >60 [facility] Comment on above: mL/min/1.73m2 CKD-EP I Creatinine Equation (2020) Glomerular filtration rate ( GFR) estimation/1.73 sq m using serum, plasma, or whole bOrdered By: Roman Salvador on 12-04-2024 GFR/1.73 sq M.predicted among non-blacks MDRD (S/P/Bld) [Vol rate/Area] 64 mL/min/{1.73_m2} >60 [facility] Comment on above: mL/min/1.73m2 CKD-EP I Creatinine Equation (2020) Serum glucose measurement (m ass/volume)Ordered By: Roman Salvador on 12-04-2024 Glucose [Mass/Vol] 135 mg/dL High 70-[address] [facility] Serum or plasma anion gap de termination (moles/volume)Ordered By: Roman Salvador on 12-04-2024 Anion gap [Moles/Vol] 13 mmol/L 5-15 [facility] Serum or plasma calcium tracy urement (mass/volume)Ordered By: Roman Salvador on 12-04-2024 Calcium [Mass/Vol] 10.0 mg/dL 7.6-11.[address] [facility] Serum or plasma creatinine m easurement (moles/volume)Ordered By: Roman Salvador on 12-04-2024 Creatinine [Moles/Vol] 1.2 mg/dL 0.8-1.3 [facility] Serum or plasma potassium me asurementOrdered By: Roman Salvador on 12-04-2024 Potassium [Moles/Vol] 3.3 mmol/L 3.3-5.1 [facility] Serum or plasma sodium measu rement (moles/volume)Ordered By: Roman Salvador on 12-04-2024 Sodium [Moles/Vol] 138 mmol/L 133-[address] [facility] Serum or plasma urea nitroge n measurement (mass/volume)Ordered By: Roman Salvador on 12-04-2024 Urea nitrogen [Mass/Vol] 28 mg/dL High 4-19 [facility] Basic Metabolic Profile (BMP )on 12-02-2024 BUN/CRE 21.1 RATIO High 10-20 [facility] Comment on above: Order Comment: Order Date: 08/19/24 Order Info: 86-1 - CMP Order Info: 91393-2 - MG Order Info: 7 - TIBC Order Info: 2498-01 - FE Order Info: 2276-01 - LUKE Order Info: 228-8 - FOLS N Performed By: #### L 500.4050, L501.5200, L503.0105, L503.6550, L509.1000, L503.6150, L506.0250, L100.0100, L503.6075, L506.1000 #### [facility] [address] [place], [place], [id number] (332) CA,Total 9.2 mg/dL Normal 8.5-10.1 [facility] Comment on above: Order Comment: Order Date: 08/19/24 Order Info: 785-1 - CMP Order Info: 91257-9 - MG Order Info: 7 - TIBC Order Info: 2498-01 - FE Order Info: 2276-01 - LUKE Order Info: 8 - FOLS N Performed By: #### L 500.4050, L501.5200, L503.0105, L503.6550, L509.1000, L503.6150, L506.0250, L100.0100, L503.6075, L506.1000 #### [facility] [address] [place], [place], [id number] (747) Chloride [Moles/Vol] 95 mmol/L Low 98-107 [facility] Comment on above: Order Comment: Order Date: 08/19/24 Order Info: 86-1 - CMP Order Info: 92514-1 - MG Order Info: 7 - TIBC Order Info: 2498-01 - FE Order Info: 2276-01 - LUKE Order Info: 2284-05 FOLS N Performed By: #### L 500.4050, L501.5200, L503.0105, L503.6550, L509.1000, L503.6150, L506.0250, L100.0100, L503.6075, L506.1000 #### [facility] [address] [place], [place], [address] CO2 [Moles/Vol] 31.0 mmol/L Normal 21.0-32.0 [facility] Comment on above: Order Comment: Order Date: 08/19/24 Order Info: 07-1 - CMP Order Info: 57769-4 - MG Order Info: 2500-04 - TIBC Order Info: 2498-01 - FE Order Info: 2276-01 - LUKE Order Info: 2284-05 FOLS N Performed By: #### L 500.4050, L501.5200, L503.0105, L503.6550, L509.1000, L503.6150, L506.0250, L100.0100, L503.6075, L506.1000 #### [facility] [address] [facility] [place], [place], [address] Creatinine [Mass/Vol] 1.23 mg/dL Normal 0.70-1.30 [facility] Comment on above: Order Comment: Order Date: 08/19/24 Order Info: 0786- - CMP Order Info: 26696-2 - MG Order Info: 2500-04 - TIBC Order Info: 2498-01 - FE Order Info: 2276-01 - LUKE Order Info: 2284-05 FOLS N Result Comment: The validity of the calculated GFR GFRAA in patients over 70 years has not been determined. Clinical correlation is essential. Performed By: #### L 500.4050, L501.5200, L503.0105, L503.6550, L509.1000, L503.6150, L506.0250, L100.0100, L503.6075, L506.1000 #### [facility] [address] [place], [place], [address] EST GFR - AA 75 mL/min Normal >60 [facility] Comment on above: Order Comment: Order Date: 08/19/24 Order Info: 86-1 - CMP Order Info: 47013-4 - MG Order Info: 7 - TIBC Order Info: 2498-01 - FE Order Info: 2276-01 - LUKE Order Info: 2284-05 - FOLS N Result Comment: Afri can Turkmen GFR Calc Performed By: #### L 500.4050, L501.5200, L503.0105, L503.6550, L509.1000, L503.6150, L506.0250, L100.0100, L503.6075, L506.1000 #### [facility] [address] [place], [place], [address] GAP 9 Normal 5-15 [facility] Comment on above: Order Comment: Order Date: 08/19/24 Order Info: 785-10 - CMP Order Info: 90547-1 - MG Order Info: 2500-04 - TIBC Order Info: 2498-01 - FE Order Info: 2276-01 LUKE Order Info: 2284-05 FOLS N Performed By: #### L 500.4050, L501.5200, L503.0105, L503.6550, L509.1000, L503.6150, L506.0250, L100.0100, L503.6075, L506.1000 #### [facility] [address] [place], [place], [address] GFR/1.73 sq M.predicted among non-blacks MDRD (S/P/Bld) [Vol rate/Area] 62 mL/min/{1.73_m2} Normal >60 [facility] Comment on above: Order Comment: Order Date: 08/19/24 Order Info: 86-1 - CMP Order Info: 61642-6 - MG Order Info: 2500-04 - TIBC Order Info: 2498-01 - FE Order Info: 2276-01 - LUKE Order Info: 2284-05 FOLS N Result Comment: Non- GFR Calc Performed By: #### L 500.4050, L501.5200, L503.0105, L503.6550, L509.1000, L503.6150, L506.0250, L100.0100, L503.6075, L506.1000 #### [facility] [address] [place], [address] Glucose [Mass/Vol] 135 mg/dL High 74-[address] [facility] Comment on above: Order Comment: Order Date: 08/19/24 Order Info: 07 - CMP Order Info: 31082-4 - MG Order Info: 2500-04 - TIBC Order Info: 2498-01 - Order Info: 2276-01 LUKE Order Info: 2284-05 FOLS N Result Comment: Fast ing Glucose result greater than or equal to 126 mg/dL suggests DIABETES MELLITUS per A.D.A. criteria. Performed By: #### L 500.4050, L501.5200, L503.0105, L503.6550, L509.1000, L503.6150, L506.0250, L100.0100, L503.6075, L506.1000 #### [facility] [address] [place], [address] Potassium [Moles/Vol] 2.9 mmol/L Low 3.5-5.1 [facility] Comment on above: Order Comment: Order Date: 08/19/24 Order Info: 07 - CMP Order Info: 11396-9 - MG Order Info: 2500-04 - TIBC Order Info: 2498-01 - FE Order Info: 2276-01 LUKE Order Info: 2284-05 FOLS N Performed By: #### L 500.4050, L501.5200, L503.0105, L503.6550, L509.1000, L503.6150, L506.0250, L100.0100, L503.6075, L506.1000 #### [facility] [address] [place], [place], [address] Sodium [Moles/Vol] 135 mmol/L Low 136-[address] [facility] Comment on above: Order Comment: Order Date: 08/19/24 Order Info: 0786-1 - CMP Order Info: 89821-7 - MG Order Info: 7 - TIBC Order Info: 2498-01 - FE Order Info: 2276-01 - LUKE Order Info: 2284-05 - FOLS N Performed By: #### L 500.4050, L501.5200, L503.0105, L503.6550, L509.1000, L503.6150, L506.0250, L100.0100, L503.6075, L506.1000 #### [facility] [address] [place], [place], [address] (771) Urea nitrogen [Mass/Vol] 26 mg/dL High 04-24 [facility] Comment on above: Order Comment: Order Date: 08/19/24 Order Info: 0786-1 - CMP Order Info: 55061-8 - MG Order Info: 2500-04 - TIBC Order Info: 2498-01 - FE Order Info: 2276-01 - LUKE Order Info: 2284-05 - FOLS N Performed By: #### L 500.4050, L501.5200, L503.0105, L503.6550, L509.1000, L503.6150, L506.0250, L100.0100, L503.6075, L506.1000 #### [facility] [address] [place], [place], [address] Blood urea nitrogen (BUN)/cr eatinine ratioOrdered By: Tony Kay on 12-01-2024 Urea nitrogen/Creatinine [Mass ratio] 21.1 mg/mg High 07-27 [facility] Carbon dioxide measurementOr dered By: Tony Kay on 12-01-2024 CO2 [Moles/Vol] 31.0 mmol/L 21.0-32.0 [facility] Chloride measurementOrdered By: Tony Kay on 12-01-2024 Chloride [Moles/Vol] 95 mmol/L Low 98-107 [facility] Estimated glomerular filtrat ion rate (GFR) AmericanOrdered By: Tony Kay on 12-01-2024 Estimated GFR (MDRD) Amer 75 mL/min >60 [facility] Comment on above: GFR Calc Glomerular filtration rate ( GFR) estimationOrdered By: Tony Kay on 12-01-2024 Estimated GFR (MDRD) Non-Af Amer 62 mL/min >60 [facility] Comment on above: Non- GFR Calc GFR/1.73 sq M.predicted among non-blacks MDRD (S/P/Bld) [Vol rate/Area] 62 mL/min/{1.73_m2} >60 [facility] Comment on above: Non- GFR Calc Glucose measurementOrdered B y: Tony Kay on 12-01-2024 Glucose [Mass/Vol] 135 mg/dL High 74-[address] [facility] Comment on above: Fasting Glucose resu lt greater than or equal to 126 mg/dL suggests DIABETES MELLITUS per A.D.A. criteria. Potassium measurementOrdered By: Tony Kay on 12-01-2024 Potassium [Moles/Vol] 2.9 mmol/L Low 3.5-5.1 [facility] Serum anion gap measurementO rdered By: Tony Kay on 12-01-2024 Anion gap [Moles/Vol] 9 mmol/L 5-15 [facility] Serum or plasma calcium tracy urement (mass/volume)Ordered By: Tony Kay on 12-01-2024 Calcium [Mass/Vol] 9.2 mg/dL 8.5-10.[address] [facility] Serum or plasma creatinine m easurement (mass/volume)Ordered By: Tony Kay on 12-01-2024 Creatinine [Mass/Vol] 1.23 mg/dL 0.70-1.30 [facility] Comment on above: The validity of the calculated GFR & GFRAA in patients over 70 years has not been determined. Clinical correlation is essential. Serum or plasma urea nitroge n measurement (mass/volume)Ordered By: Tony Kay on 12-01-2024 Urea nitrogen [Mass/Vol] 26 mg/dL High 7-18 [facility] Sodium levelOrdered By: Tony Kay on 12-01-2024 Sodium [Moles/Vol] 135 mmol/L Low 136-[address] [facility] CNOVon 11-28-2024 CNOV Office Visit (ENWSTR ) ----- BALTAZAR BAY ([id number]) 1955 M Date Time Provider Department 11/28/24 1:40 PM MILTON VILLANUEVA ENWSTR During your visit today, we recorded the following information about you: Pulse Blood pressure Weight 78/minute 138/81 115 kg Milton Villanueva MD 11/28/2024 6:08 PM Signed [facility] Initial Clinic Visit Note History of Present Illness: Mr. Baltazar Bay is a 68 year old male coming today as a new patient o me after self referral for evaluation of high aldosterone levels. He reports recommending his PCP to check aldosterone based on 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 He follows [facility] abstracts, [facility] and [facility] articles, and reports he thought the fluid retention was secondary to aldosterone and hence requested for these labs He has been on metolazone for 7 years for HTN, and on lasix 40 mg daily for 14 years Potassium 20 mEq 2 to 3 times daily - for the last 8 years He has been on triamterene- hydrochlorothiazide as well, which he reports to have stopped taking 3 weeks ago, as it did not help with fluid retention He was also on spironolactone in the past for 2 months, reports no much difference in fluid retention or blood pressure noted at that time either He has a hx of CKD stage 3a (eGFR 53 on the most recent CMP). Reports seeing nephrology locally with not much help, was advised to continue loop diuretics He is not on any typical antihypertensive medications at this time, and is only on loop diuretics which can lower BP anyway He also reports that he eats very low salt and if he increases the salt even by 100 mg, his weight increases Denied any arrhythmia/palpitations, nausea, vomiting, lightheadedness/dizziness , weight loss CT abdomen and pelvis with contrast at [facility] on 06/27/2023 shows unremarkable adrenal glands (scanned into system) Supplements include: Alpha lipoic acid 300 mg daily Krill oil 500 mg daily Lysine 500 mg daily Magnesium chelated 250 mg 2 tablets a day Vitamin B12 methylcobalamin 5000 mcg 3 times a week Vitamin D3 2000 units once daily Zinc 50 mg once daily Florastor once daily Probiotics once daily Past Medical History: PAST MEDICAL HISTORY Diagnosis Date Deafness in right ear External hemorrhoids without mention of complication 12/04/05 Hemorrhage of gastrointestinal tract, unspecified 12/04/05 Internal hemorrhoids without mention of complication 12/04/05 PMH - PAST MEDICAL HISTORY OF low testosterone blood test PM - 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 Unspecified hemorrhoids without mention of complication Surgical History: PAST SURGICAL HISTORY Procedure Laterality Date COLONOSCOPY FLX DX W/COLLJ SPEC WHEN PFRMD 12/04/05 PAST SURGICAL HISTORY OF polyp removed posterior off back PAST SURGICAL HISTORY OF skin tim benign PAST SURGICAL HISTORY OF keloid 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 PAST SURGICAL HISTORY OF 05/24/15 removal of acoustic neuroma Family Medical History: FAMILY HISTORY Problem Relation Age of Onset Allergies Mother Ischemic Heart Disease Father No Ocular Disease No Family History Social History: Social History Tobacco Use Smoking status: Never Smokeless tobacco: Never Substance Use Topics Alcohol use: No Drug use: No Allergies: ALLERGIES Allergen Reactions Aspirin Rash Penicillins Rash Sulfamethoxazole Other: See Comments migraine Sulfasalazine Other: See Comments Current medications: Current Outpatient Medications Medication Sig metOLazone (ZAROXOLYN) 5 mg tablet Take 5 mg by mouth once daily. cholecalciferol, vitamin D3, (VITAMIN D3 ORAL) Take by mouth once daily. Lactobacillus acidophilus (PROBIOTIC ORAL) Take by mouth once daily. Saccharomyces boulardii (FLORASTOR ORAL) Take by mouth once daily. [id number]-[id number]-wsb-mgp-sshmds o-ast [id number] mg cap zinc sulfate (ZINC-220) 220 mg (50 mg zinc) capsule furosemide (LASIX) 40 mg tablet Take 40 mg by mouth once daily. Magnesium 250 mg tab Take 250 mg by mouth twice daily. LORazepam (ATIVAN) 1 mg tablet Take 1 mg by mouth every 6 hours as needed. LYSINE ORAL Take 2,000 mg by mouth once daily. ALPHA LIPOIC ACID ORAL Take 600 mg by mouth once daily. cyanocobalamin, vitamin B-12, 5,000 mcg/mL drop Dissolve 5,000 mcg under the tongue. CPAP daily at bedtime. potassium citrate ER (UROCIT-K) 10 mEq (1,080 mg) TbER Take 20 mEq by mouth two times a day. Gabapentin 300 mg ORAL Tab Take 1 tablet by mouth once daily. ferrous sulfate (IRON) 325 mg (65 mg iron) tablet Doxepin 6 mg tab triamterene-hydroCHLOROth iazide (MAXZIDE-25) 37.5-25 mg per tablet (Patient not taking: Reported on 10/30/2024) CHONDROITIN SULFATE A ORAL Take 1,500 mg by mouth once daily. (Patient not taking: Reported on 10/30/2024) LEVOC (more content not included)... Normal [facility] Adrenocorticotropic Hormoneo n 10-26-2024 ACTH 21.2 pg/mL Normal 7.2-63.3 [facility] Comment on above: Order Comment: Order Date: 08/19/24 Order Info: 0786-1 - CMP Order Info: 10816-7 - MG Order Info: 2500-7 - TIBC Order Info: 2498-4 - FE Order Info: 2276-4 - LUKE Order Info: 2284-8 - FOLS N Result Comment: ACTH reference interval for samples collected between 7 and 10 AM. Performed at: [facility] [address] [id number] Em Physician: Carlos Sim MD, Phone: [phone] Performed at: [facility] [address] [id number] Em Physician: Hesham Christopher PhD, Phone: [phone] Performed By: #### L 500.4050, L501.5200, L503.0105, L503.6550, L509.1000, L503.6150, L506.0250, L100.0100, L503.6075, L506.1000 #### [facility] [address] [facility] [place], [address] Aldosterone, Serumon 025 ALDOSTERONE,S 82.0 ng/dL High 0.0-30.0 [facility] Comment on above: Order Comment: Order Date: 08/19/24 Order Info: 785- - CMP Order Info: 85636-1 - MG Order Info: 7 - TIBC Order Info: 2498-01 FE Order Info: 2276-01 LUKE Order Info: 2284-05 - FOLS N Performed By: #### L 500.4050, L501.5200, L503.0105, L503.6550, L509.1000, L503.6150, L506.0250, L100.0100, L503.6075, L506.1000 #### [facility] [address] [place], [place], [id number] Renin, Plasmaon 10-26-2024 RENIN, PLASMA 11.633 ng/mL/hr High 0.167-5.38 0 [facility] Comment on above: Order Comment: Order Date: 08/19/24 Order Info: 785-10 - CMP Order Info: 16259-6 - MG Order Info: 2500-04 - TIBC Order Info: 2498-01 FE Order Info: 2276-01 Order Info: 2284-05 FOLS N Performed By: #### L 500.4050, L501.5200, L503.0105, L503.6550, L509.1000, L503.6150, L506.0250, L100.0100, L503.6075, L506.1000 #### [facility] [address] [place], [place], [address] L3410.9999on 10-19-2024 [facility] Misc. COMMENT Normal . [facility] Comment on above: Order Comment: Order Date: 08/19/24 Order Info: 1 - CMP Order Info: 99906-5 - MG Order Info: 2500-04 - TIBC Order Info: 2498-01 - FE Order Info: 2276-01 LUKE Order Info: 2284-05 - FOLS N Result Comment: Test Ordered: [id number] Cortisol - AM Cortisol - AM 7.7 ug/dL Reference Range: 6.2-19.4 Performed at: [facility] [address] [place], [place] [id number] Em Physician: Hesham Christopher PhD, Phone: [phone] Performed By: #### L 500.4050, L501.5200, L503.0105, L503.6550, L509.1000, L503.6150, L506.0250, L100.0100, L503.6075, L506.1000 #### [facility] [place], [place], [id number] Adrenocorticotropic hormone (ACTH) measurementOrdered By: Tony Kay on 10-16-2024 Adrenocorticotropic Hormone 21.2 pg/mL 7.2-63.3 [facility] Comment on above: ACTH reference inter shakir for samples collected between 7 and10 AM.Performed at: [address] [id number] Director: Carlos Sim MD, Phone: [phone] at: [address] [id number] [place], [place] [id number] Director: Hesham Christopher PhD, Phone: [phone] Aldosterone, serumOrdered By : Tony Kay on 10-16-2024 Aldosterone 82.0 ng/dL High 0.0-30.0 [facility] Basic Metabolic Profile (BMP )on 10-16-2024 BUN/CRE 19.1 RATIO Normal 10-20 [facility] Comment on above: Order Comment: Order Date: 08/19/24 Order Info: 0786-1 - CMP Order Info: 10166-2 - MG Order Info: 2500-7 - TIBC Order Info: 2498-4 - FE Order Info: 2276-4 - LUKE Order Info: 2284-8 - FOLS N Performed By: #### L 500.4050, L501.5200, L503.0105, L503.6550, L509.1000, L503.6150, L506.0250, L100.0100, L503.6075, L506.1000 #### [facility] [address] [place], [address] CA,Total 9.5 mg/dL Normal 8.5-10.1 [facility] Comment on above: Order Comment: Order Date: 08/19/24 Order Info: 0786-1 - CMP Order Info: 36767-9 - MG Order Info: 2500-7 - TIBC Order Info: 4 - FE Order Info: 2276-01 - LUKE Order Info: 8 - FOLS N Performed By: #### L 500.4050, L501.5200, L503.0105, L503.6550, L509.1000, L503.6150, L506.0250, L100.0100, L503.6075, L506.1000 #### [facility] [address] [place], [address] Chloride [Moles/Vol] 101 mmol/L Normal 98-107 [facility] Comment on above: Order Comment: Order Date: 08/19/24 Order Info: 07-1 - CMP Order Info: 23576-7 - MG Order Info: 2500-04 - TIBC Order Info: 2498-01 - FE Order Info: 2276-01 - LUKE Order Info: 8 - FOLS N Performed By: #### L 500.4050, L501.5200, L503.0105, L503.6550, L509.1000, L503.6150, L506.0250, L100.0100, L503.6075, L506.1000 #### [facility] [address] [place], [address] CO2 [Moles/Vol] 30.0 mmol/L Normal 21.0-32.0 [facility] Comment on above: Order Comment: Order Date: 08/19/24 Order Info: 0786-1 - CMP Order Info: 85849-9 - MG Order Info: 25007 - TIBC Order Info: 4 - FE Order Info: 2276-01 - LUKE Order Info: 8 - FOLS N Performed By: #### L 500.4050, L501.5200, L503.0105, L503.6550, L509.1000, L503.6150, L506.0250, L100.0100, L503.6075, L506.1000 #### [facility] [address] [place], [place], [id number] (118) Creatinine [Mass/Vol] 1.41 mg/dL High 0.70-1.30 [facility] Comment on above: Order Comment: Order Date: 08/19/24 Order Info: 07 - CMP Order Info: 65599-5 - MG Order Info: 2500-04 - TIBC Order Info: 2498-01 - Order Info: 2276-01 - LUKE Order Info: 2284-05 FOLS N Result Comment: The validity of the calculated GFR GFRAA in patients over 70 years has not been determined. Clinical correlation is essential. Performed By: #### L 500.4050, L501.5200, L503.0105, L503.6550, L509.1000, L503.6150, L506.0250, L100.0100, L503.6075, L506.1000 #### [facility] [address] [place], [place], [id number] (625) EST GFR - AA 64 mL/min Normal >60 [facility] Comment on above: Order Comment: Order Date: 08/19/24 Order Info: 07 - CMP Order Info: 01190-2 - MG Order Info: 2500-04 - TIBC Order Info: 2498-01 FE Order Info: 2276-01 - LUKE Order Info: 2284-05 - FOLS N Result Comment: Afri can Turkmen GFR Calc Performed By: #### L 500.4050, L501.5200, L503.0105, L503.6550, L509.1000, L503.6150, L506.0250, L100.0100, L503.6075, L506.1000 #### [facility] [address] [place], [address] GAP 6 Normal 5-15 [facility] Comment on above: Order Comment: Order Date: 08/19/24 Order Info: 785- - CMP Order Info: 92266-4 - MG Order Info: 2500-04 - TIBC Order Info: 2498-01 - FE Order Info: 2276-01 - LUKE Order Info: 2284-05 - FOLS N Performed By: #### L 500.4050, L501.5200, L503.0105, L503.6550, L509.1000, L503.6150, L506.0250, L100.0100, L503.6075, L506.1000 #### [facility] [address] [place], [address] GFR/1.73 sq M.predicted among non-blacks MDRD (S/P/Bld) [Vol rate/Area] 53 mL/min/{1.73_m2} Low >60 [facility] Comment on above: Order Comment: Order Date: 08/19/24 Order Info: 785-10 - CMP Order Info: 06272-0 - MG Order Info: 2500-04 - TIBC Order Info: 2498-01 - FE Order Info: 2276-01 - LUKE Order Info: 2284-05 - FOLS N Result Comment: Non- GFR Calc Performed By: #### L 500.4050, L501.5200, L503.0105, L503.6550, L509.1000, L503.6150, L506.0250, L100.0100, L503.6075, L506.1000 #### [facility] [address] [place], [place], [id number] Glucose [Mass/Vol] 136 mg/dL High 74-[address] [facility] Comment on above: Order Comment: Order Date: 08/19/24 Order Info: 785-10 - CMP Order Info: 02676-0 - MG Order Info: 2500-04 - TIBC Order Info: 2498-01 - FE Order Info: 2276-01 - LUKE Order Info: 2284-05 - FOLS N Result Comment: Fast ing Glucose result greater than or equal to 126 mg/dL suggests DIABETES MELLITUS per A.D.A. criteria. Performed By: #### L 500.4050, L501.5200, L503.0105, L503.6550, L509.1000, L503.6150, L506.0250, L100.0100, L503.6075, L506.1000 #### [facility] [address] [place], [address] Potassium [Moles/Vol] 3.7 mmol/L Normal 3.5-5.1 [facility] Comment on above: Order Comment: Order Date: 08/19/24 Order Info: 0786- - CMP Order Info: 40079-3 - MG Order Info: 2500-04 - TIBC Order Info: 2498-01 FE Order Info: 2276-01 LUKE Order Info: 2284-05 - FOLS N Performed By: #### L 500.4050, L501.5200, L503.0105, L503.6550, L509.1000, L503.6150, L506.0250, L100.0100, L503.6075, L506.1000 #### [facility] [address] [place], [address] Sodium [Moles/Vol] 137 mmol/L Normal 136-[address] [facility] Comment on above: Order Comment: Order Date: 08/19/24 Order Info: 0786- - CMP Order Info: 74892-7 - MG Order Info: 2500-04 TIBC Order Info: 2498-01 - FE Order Info: 2276-01 - LUKE Order Info: 2284-05 - FOLS N Performed By: #### L 500.4050, L501.5200, L503.0105, L503.6550, L509.1000, L503.6150, L506.0250, L100.0100, L503.6075, L506.1000 #### [facility] [address] [place], [address] Urea nitrogen [Mass/Vol] 27 mg/dL High 7-18 [facility] Comment on above: Order Comment: Order Date: 08/19/24 Order Info: 0786-1 - CMP Order Info: 67343-1 - MG Order Info: 2500-7 - TIBC Order Info: 2498-4 - FE Order Info: 2276-4 - LUKE Order Info: 2284-8 - FOLS N Performed By: #### L 500.4050, L501.5200, L503.0105, L503.6550, L509.1000, L503.6150, L506.0250, L100.0100, L503.6075, L506.1000 #### [facility] [place], [address] Blood urea nitrogen (BUN)/cr eatinine ratioOrdered By: Tony Kay on 10-16-2024 Urea nitrogen/Creatinine [Mass ratio] 19.1 mg/mg 10-20 [facility] Carbon dioxide measurementOr dered By: Tony Kay on 10-16-2024 CO2 [Moles/Vol] 30.0 mmol/L 21.0-32.0 [facility] Chloride measurementOrdered By: Tony Kay on 10-16-2024 Chloride [Moles/Vol] 101 mmol/L 98-107 [facility] Estimated glomerular filtrat ion rate (GFR) AmericanOrdered By: Tony Kay on 10-16-2024 Estimated GFR (MDRD) Amer 64 mL/min >60 [facility] Comment on above: GFR Calc Glomerular filtration rate ( GFR) estimationOrdered By: Tony Kay on 10-16-2024 Estimated GFR (MDRD) Non-Af Amer 53 mL/min Low >60 [facility] Comment on above: Non- GFR Calc Glucose measurementOrdered B y: Tony Kay on 10-16-2024 Glucose [Mass/Vol] 136 mg/dL High 74-[address] [facility] Comment on above: Fasting Glucose resu lt greater than or equal to 126 mg/dL suggests DIABETES MELLITUS per A.D.A. criteria. No Panel InformationOrdered By: Tony Kay on 10-16-2024 Miscellaneous Test COMMENT . [facility] Comment on above: Test Ordered: [id number] Cortisol - AMCortisol - AM 7.7 ug/dL CB Reference Range: 6.2-19.4Performed at: - [facility] [address] [id number] Director: Hesham Christopher PhD, Phone: [phone] Potassium measurementOrdered By: Tony Kay on 10-16-2024 Potassium [Moles/Vol] 3.7 mmol/L 3.5-5.1 [facility] Renin (P) [Catalytic activit y/Vol]Ordered By: Tony Kay on 10-16-2024 Renin 11.633 ng/mL/hr High 0.167-5.38 0 [facility] Serum anion gap measurementO rdered By: Tony Kay on 10-16-2024 Anion gap [Moles/Vol] 6 mmol/L 5-15 [facility] Serum or plasma calcium tracy urement (mass/volume)Ordered By: Tony Kay on 10-16-2024 Calcium [Mass/Vol] 9.5 mg/dL 8.5-10.[address] [facility] Serum or plasma creatinine m easurement (mass/volume)Ordered By: Tony Kay on 10-16-2024 Creatinine [Mass/Vol] 1.41 mg/dL High 0.70-1.30 [facility] Comment on above: The validity of the calculated GFR & GFRAA in patients over 70 years has not been determined. Clinical correlation is essential. Serum or plasma urea nitroge n measurement (mass/volume)Ordered By: Tony Kay on 10-16-2024 Urea nitrogen [Mass/Vol] 27 mg/dL High 7-18 [facility] Sodium levelOrdered By: Tony Kay on 10-16-2024 Sodium [Moles/Vol] 137 mmol/L 136-[address] [facility] 42-HI-Gmpqzwv DOrdered By: Willian Kay on 08-20-2024 Vitamin D 25-Hydroxy 46.6 ng/mL [facility] Comment on above: Vitamin D 25(OH) Sta tus Range Deficiency <20 ng/mL (50nmol/L) Insufficiency 20 - 30 ng/mL (50 - 75 nmol/L) Sufficiency 30 - 100 ng/mL (75 - 250 nmol/L) Toxicity >100 ng/mL (>250 nmol/L) Absolute neutrophil countOrd ered By: Tony Kay on 08-20-2024 Neutrophils (Bld) [#/Vol] 3.6 10*3/uL 2.0-7.7 [facility] Albumin to globulin ratioOrd ered By: Tony Kay on 08-20-2024 Albumin/Globulin [Mass ratio] 0.7 {ratio} Low 0.9-2.4 [facility] Basophil percentageOrdered B y: Tony Kay on 08-20-2024 Basophils/100 WBC (Bld) 0.8 % 0-1 [facility] Bilirubin, totalOrdered By: Tony Kay on 08-20-2024 Bilirubin [Mass/Vol] 0.40 mg/dL 0.20-1.00 [facility] Comment on above: For patients on eltr ombopag therapy, use of Dimension [place] TBIL is not recommended. Blood urea nitrogen (BUN)/cr eatinine ratioOrdered By: Tony Kay on 08-20-2024 Urea nitrogen/Creatinine [Mass ratio] 20.0 mg/mg 10-20 [facility] CBC W/Diff, Automatedon 08-08 Absolute Lymph 1.70 X10 3/uL Normal 0.83-4.51 [facility] Comment on above: Order Comment: Order Date: 08/19/24 Order Info: 01801-06 - CBCD Performed By: #### L 500.4050, L501.5200, L503.0105, L503.6550, L509.1000, L503.6150, L506.0250, L100.0100, L503.6075, L506.1000 #### [facility] [address] [place] [address], [address] Absolute Neut 3.6 X10 3/uL Normal 2.0-7.7 [facility] Comment on above: Order Comment: Order Date: 08/19/24 Order Info: 01801-06 - CBCD Performed By: #### L 500.4050, L501.5200, L503.0105, L503.6550, L509.1000, L503.6150, L506.0250, L100.0100, L503.6075, L506.1000 #### [facility] [address], [address] Basophils/100 WBC (Bld) 0.8 % Normal 0-1 [facility] Comment on above: Order Comment: Order Date: 08/19/24 Order Info: 018- - CBCD Performed By: #### L 500.4050, L501.5200, L503.0105, L503.6550, L509.1000, L503.6150, L506.0250, L100.0100, L503.6075, L506.1000 #### [facility] [address] [facility] [place], [address] Eosinophils/100 WBC (Bld) 2.1 % Normal 0-5 [facility] Comment on above: Order Comment: Order Date: 08/19/24 Order Info: 018- - CBCD Performed By: #### L 500.4050, L501.5200, L503.0105, L503.6550, L509.1000, L503.6150, L506.0250, L100.0100, L503.6075, L506.1000 #### [facility] [address] [place], [address] Erythrocyte distribution width (RBC) [Ratio] 16.9 % High 11.6-14.6 [facility] Comment on above: Order Comment: Order Date: 08/19/24 Order Info: 018- - CBCD Performed By: #### L 500.4050, L501.5200, L503.0105, L503.6550, L509.1000, L503.6150, L506.0250, L100.0100, L503.6075, L506.1000 #### [facility] [address] [place], [address] Hematocrit (Bld) [Volume fraction] 47.5 % Normal 40-54 [facility] Comment on above: Order Comment: Order Date: 08/19/24 Order Info: 0184-1 - CBCD Performed By: #### L 500.4050, L501.5200, L503.0105, L503.6550, L509.1000, L503.6150, L506.0250, L100.0100, L503.6075, L506.1000 #### [facility] [address] [place], [address] Hemoglobin (Bld) [Mass/Vol] 15.1 g/dL Normal 13.0-16.5 [facility] Comment on above: Order Comment: Order Date: 08/19/24 Order Info: 0184- - CBCD Performed By: #### L 500.4050, L501.5200, L503.0105, L503.6550, L509.1000, L503.6150, L506.0250, L100.0100, L503.6075, L506.1000 #### [facility] [address] [place], [address] IG% 0.500 Normal 0.0-0.9 [facility] Comment on above: Order Comment: Order Date: 08/19/24 Order Info: 0184- - CBCD Result Comment: IG% - Immature Granulocytes (promyelocytes, myelocytes and metamyelocytes) > 1% indicates that a LEFT SHIFT is Present. Performed By: #### L 500.4050, L501.5200, L503.0105, L503.6550, L509.1000, L503.6150, L506.0250, L100.0100, L503.6075, L506.1000 #### [facility] [address] [place], [address] Lymphocytes/100 WBC (Bld) 27.8 % Normal 19-41 [facility] Comment on above: Order Comment: Order Date: 08/19/24 Order Info: 0184-1 - CBCD Performed By: #### L 500.4050, L501.5200, L503.0105, L503.6550, L509.1000, L503.6150, L506.0250, L100.0100, L503.6075, L506.1000 #### [facility] [address] [place], [address] MCH (RBC) [Entitic mass] 27.2 pg Normal 27.0-32.0 [facility] Comment on above: Order Comment: Order Date: 08/19/24 Order Info: 018- - CBCD Performed By: #### L 500.4050, L501.5200, L503.0105, L503.6550, L509.1000, L503.6150, L506.0250, L100.0100, L503.6075, L506.1000 #### [facility] [address] [place], [address] MCHC (RBC) [Mass/Vol] 31.8 g/dL Low 32-36 [facility] Comment on above: Order Comment: Order Date: 08/19/24 Order Info: 018- - CBCD Performed By: #### L 500.4050, L501.5200, L503.0105, L503.6550, L509.1000, L503.6150, L506.0250, L100.0100, L503.6075, L506.1000 #### [facility] [address] [place], [address] MCV (RBC) [Entitic vol] 85.6 fL Normal 80-94 [facility] Comment on above: Order Comment: Order Date: 08/19/24 Order Info: 018- - CBCD Performed By: #### L 500.4050, L501.5200, L503.0105, L503.6550, L509.1000, L503.6150, L506.0250, L100.0100, L503.6075, L506.1000 #### [facility] [address] [place], [address] Monocytes/100 WBC (Bld) 10.0 % Normal 0-10 [facility] Comment on above: Order Comment: Order Date: 08/19/24 Order Info: 0184-1 - CBCD Performed By: #### L 500.4050, L501.5200, L503.0105, L503.6550, L509.1000, L503.6150, L506.0250, L100.0100, L503.6075, L506.1000 #### [facility] [address] [place], [address] Neutrophils/100 WBC (Bld) 58.8 % Normal 47-70 [facility] Comment on above: Order Comment: Order Date: 08/19/24 Order Info: 0184- - CBCD Performed By: #### L 500.4050, L501.5200, L503.0105, L503.6550, L509.1000, L503.6150, L506.0250, L100.0100, L503.6075, L506.1000 #### [facility] [address] [place], [address] Nucleated RBC (Bld) [#/Vol] 0 10*3/uL Normal 0-5 [facility] Comment on above: Order Comment: Order Date: 08/19/24 Order Info: 0184-1 - CBCD Performed By: #### L 500.4050, L501.5200, L503.0105, L503.6550, L509.1000, L503.6150, L506.0250, L100.0100, L503.6075, L506.1000 #### [facility] [address] [place], [address] Platelet mean volume (Bld) [Entitic vol] 10.3 fL Normal 6.2-12.0 [facility] Comment on above: Order Comment: Order Date: 08/19/24 Order Info: 0184-1 - CBCD Performed By: #### L 500.4050, L501.5200, L503.0105, L503.6550, L509.1000, L503.6150, L506.0250, L100.0100, L503.6075, L506.1000 #### [facility] [address] [place], [address] Platelets (Bld) [#/Vol] 273 10*3/uL Normal 150-450 [facility] Comment on above: Order Comment: Order Date: 08/19/24 Order Info: 0184- - CBCD Performed By: #### L 500.4050, L501.5200, L503.0105, L503.6550, L509.1000, L503.6150, L506.0250, L100.0100, L503.6075, L506.1000 #### [facility] [address] [place], [address] RBC (Bld) [#/Vol] 5.55 10*6/uL Normal 4.6-6.2 [facility] Comment on above: Order Comment: Order Date: 08/19/24 Order Info: 0184- - CBCD Performed By: #### L 500.4050, L501.5200, L503.0105, L503.6550, L509.1000, L503.6150, L506.0250, L100.0100, L503.6075, L506.1000 #### [facility] [address] [place], [address] RDW SD 51.9 fl High 35.1-43.9 [facility] Comment on above: Order Comment: Order Date: 08/19/24 Order Info: 0184-1 - CBCD Performed By: #### L 500.4050, L501.5200, L503.0105, L503.6550, L509.1000, L503.6150, L506.0250, L100.0100, L503.6075, L506.1000 #### [facility] [address] [place], [place], [address] WBC (Bld) [#/Vol] 6.1 10*3/uL Normal 4.4-11.[address] [facility] Comment on above: Order Comment: Order Date: 08/19/24 Order Info: 0184-1 - CBCD Performed By: #### L 500.4050, L501.5200, L503.0105, L503.6550, L509.1000, L503.6150, L506.0250, L100.0100, L503.6075, L506.1000 #### [facility] [address] [place], [address] Carbon dioxide measurementOr dered By: Tony Kay on 08-20-2024 CO2 [Moles/Vol] 27.0 mmol/L 21.0-32.0 [facility] Chloride measurementOrdered By: Tony Kay on 08-20-2024 Chloride [Moles/Vol] 103 mmol/L 98-107 [facility] Comprehensive Metabolic Prof ilon 08-20-2024 Albumin [Mass/Vol] 3.2 g/dL Normal 3.2-5.[address] [facility] Comment on above: Order Comment: Order Date: 08/19/24 Order Info: 0786-1 - CMP Order Info: 30694-7 - MG Order Info: 2500-7 - TIBC Order Info: 2498-4 - FE Order Info: 2276-4 - LUKE Order Info: 2284-8 - FOLS N Performed By: #### L 500.4050, L501.5200, L503.0105, L503.6550, L509.1000, L503.6150, L506.0250, L100.0100, L503.6075, L506.1000 #### [facility] [address] [place], [place], [id number] Albumin/Globulin [Mass ratio] 0.7 {ratio} Low 0.9-2.4 [facility] Comment on above: Order Comment: Order Date: 08/19/24 Order Info: 0786-1 - CMP Order Info: 98051-9 - MG Order Info: 2500-04 - TIBC Order Info: 4 - FE Order Info: 2276-01 - LUKE Order Info: 2284-05 - FOLS N Performed By: #### L 500.4050, L501.5200, L503.0105, L503.6550, L509.1000, L503.6150, L506.0250, L100.0100, L503.6075, L506.1000 #### [facility] [address] [place], [place], [phone] (161) ALK P 75 U/L Normal 45-117 [facility] Comment on above: Order Comment: Order Date: 08/19/24 Order Info: 1 - CMP Order Info: 09963-8 - MG Order Info: 2500-04 - TIBC Order Info: 2498-01 - FE Order Info: 2276-01 - LUKE Order Info: 2284-05 - FOLS N Performed By: #### L 500.4050, L501.5200, L503.0105, L503.6550, L509.1000, L503.6150, L506.0250, L100.0100, L503.6075, L506.1000 #### [facility] [address] [place], [place], [phone] (928) ALT [Catalytic activity/Vol] 38 U/L Normal 16-61 [facility] Comment on above: Order Comment: Order Date: 08/19/24 Order Info: 1 - CMP Order Info: 82702-1 - MG Order Info: 2500-04 - TIBC Order Info: 2498-01 - FE Order Info: 2276-01 - LUKE Order Info: 2284-05 - FOLS N Performed By: #### L 500.4050, L501.5200, L503.0105, L503.6550, L509.1000, L503.6150, L506.0250, L100.0100, L503.6075, L506.1000 #### [facility] [address] [place], [place], [address] AST [Catalytic activity/Vol] 22 U/L Normal 15-37 [facility] Comment on above: Order Comment: Order Date: 08/19/24 Order Info: 785- - CMP Order Info: 66148-5 - MG Order Info: 2499-7 - TIBC Order Info: 24984 - FE Order Info: 2276-01 - LUKE Order Info: 2284-05 - FOLS N Performed By: #### L 500.4050, L501.5200, L503.0105, L503.6550, L509.1000, L503.6150, L506.0250, L100.0100, L503.6075, L506.1000 #### [facility] [address] [place], [place], [phone] Bilirubin [Mass/Vol] 0.40 mg/dL Normal 0.20-1.00 [facility] Comment on above: Order Comment: Order Date: 08/19/24 Order Info: 785-10 - CMP Order Info: 24394-6 - MG Order Info: 2500-04 - TIBC Order Info: 2498-01 - FE Order Info: 2276-01 - LUKE Order Info: 2284-05 - FOLS N Result Comment: For patients on eltrombopag therapy, use of Dimension [place] TBIL is not recommended. Performed By: #### L 500.4050, L501.5200, L503.0105, L503.6550, L509.1000, L503.6150, L506.0250, L100.0100, L503.6075, L506.1000 #### [facility] [address] [place], [place], [id number] BUN/CRE 20.0 RATIO Normal 10-20 [facility] Comment on above: Order Comment: Order Date: 08/19/24 Order Info: 785-1 - CMP Order Info: 00374-6 - MG Order Info: 7 - TIBC Order Info: 2494 - FE Order Info: 2276-01 - LUKE Order Info: 2284-05 - FOLS N Performed By: #### L 500.4050, L501.5200, L503.0105, L503.6550, L509.1000, L503.6150, L506.0250, L100.0100, L503.6075, L506.1000 #### [facility] [address] [place], [address] CA,Total 9.5 mg/dL Normal 8.5-10.1 [facility] Comment on above: Order Comment: Order Date: 08/19/24 Order Info: 0786- - CMP Order Info: 05698-6 - MG Order Info: 2500-04 - TIBC Order Info: 2498-01 - FE Order Info: 2276-01 - LUKE Order Info: 2284-05 - FOLS N Performed By: #### L 500.4050, L501.5200, L503.0105, L503.6550, L509.1000, L503.6150, L506.0250, L100.0100, L503.6075, L506.1000 #### [facility] [address] [place], [address] Chloride [Moles/Vol] 103 mmol/L Normal 98-107 [facility] Comment on above: Order Comment: Order Date: 08/19/24 Order Info: 0786- - CMP Order Info: 73126-5 - MG Order Info: 2500-04 - TIBC Order Info: 2498-01 - FE Order Info: 2276-01 - LUKE Order Info: 2284-05 - FOLS N Performed By: #### L 500.4050, L501.5200, L503.0105, L503.6550, L509.1000, L503.6150, L506.0250, L100.0100, L503.6075, L506.1000 #### [facility] [address] [place], [address] CO2 [Moles/Vol] 27.0 mmol/L Normal 21.0-32.0 [facility] Comment on above: Order Comment: Order Date: 08/19/24 Order Info: -1 - CMP Order Info: 60399-9 - MG Order Info: 7 - TIBC Order Info: 2498-01 - FE Order Info: 2276-01 - LUKE Order Info: 2284-05 - FOLS N Performed By: #### L 500.4050, L501.5200, L503.0105, L503.6550, L509.1000, L503.6150, L506.0250, L100.0100, L503.6075, L506.1000 #### [facility] [address] [place], [place], [id number] Creatinine [Mass/Vol] 1.20 mg/dL Normal 0.70-1.30 [facility] Comment on above: Order Comment: Order Date: 08/19/24 Order Info: 785-10 - CMP Order Info: 17557-2 - MG Order Info: 2500-04 - TIBC Order Info: 2498-01 - FE Order Info: 2276-01 - LUKE Order Info: 2284-05 - FOLS N Result Comment: The validity of the calculated GFR GFRAA in patients over 70 years has not been determined. Clinical correlation is essential. Performed By: #### L 500.4050, L501.5200, L503.0105, L503.6550, L509.1000, L503.6150, L506.0250, L100.0100, L503.6075, L506.1000 #### [facility] [address] [place], [address] EST GFR - AA 77 mL/min Normal >60 [facility] Comment on above: Order Comment: Order Date: 08/19/24 Order Info: 1 - CMP Order Info: 30297-7 - MG Order Info: 7 - TIBC Order Info: 2498-01 - FE Order Info: 2276-01 - LUKE Order Info: 2284-05 - FOLS N Result Comment: Afri can Turk[place] GFR Calc Performed By: #### L 500.4050, L501.5200, L503.0105, L503.6550, L509.1000, L503.6150, L506.0250, L100.0100, L503.6075, L506.1000 #### [facility] [address] [place], [place], [address] [phone] [phone] 7 Normal 5-15 [facility] Comment on above: Order Comment: Order Date: 08/19/24 Order Info: 07- - CMP Order Info: 67052-2 - MG Order Info: 2500-04 - TIBC Order Info: 2498-01 - FE Order Info: 2276-01 - LUKE Order Info: 2284-05 - FOLS N Performed By: #### L 500.4050, L501.5200, L503.0105, L503.6550, L509.1000, L503.6150, L506.0250, L100.0100, L503.6075, L506.1000 #### [facility] [address] [place], [place], [phone] GFR/1.73 sq M.predicted among non-blacks MDRD (S/P/Bld) [Vol rate/Area] 64 mL/min/{1.73_m2} Normal >60 [facility] Comment on above: Order Comment: Order Date: 08/19/24 Order Info: 785- - CMP Order Info: 72146-6 - MG Order Info: 2500-04 - TIBC Order Info: 2498-01 - FE Order Info: 2276-01 - LUKE Order Info: 2284-05 - FOLS N Result Comment: Non- GFR Calc Performed By: #### L 500.4050, L501.5200, L503.0105, L503.6550, L509.1000, L503.6150, L506.0250, L100.0100, L503.6075, L506.1000 #### [facility] [address] [place], [place], [address] (085) Globulin (S) [Mass/Vol] 4.9 g/dL High 2.2-4.2 [facility] Comment on above: Order Comment: Order Date: 08/19/24 Order Info: 785-10 - CMP Order Info: 48578-4 - MG Order Info: 2500-04 - TIBC Order Info: 2498-01 - FE Order Info: 2276-01 - LUKE Order Info: 2284-05 - FOLS N Performed By: #### L 500.4050, L501.5200, L503.0105, L503.6550, L509.1000, L503.6150, L506.0250, L100.0100, L503.6075, L506.1000 #### [facility] [address] [place], [place], [id number] Glucose [Mass/Vol] 108 mg/dL High 74-[address] [facility] Comment on above: Order Comment: Order Date: 08/19/24 Order Info: 785-10 - CMP Order Info: 33291-0 - MG Order Info: 2500-04 - TIBC Order Info: 2498-01 FE Order Info: 2276-01 LUKE Order Info: 2284-05 - FOLS N Result Comment: Fast ing Glucose result from 100 to 125 mg/dL suggests IMPAIRED HOMEOSTASIS per A.D.A. criteria. Performed By: #### L 500.4050, L501.5200, L503.0105, L503.6550, L509.1000, L503.6150, L506.0250, L100.0100, L503.6075, L506.1000 #### [facility] [address] [place], [address] Potassium [Moles/Vol] 3.8 mmol/L Normal 3.5-5.1 [facility] Comment on above: Order Comment: Order Date: 08/19/24 Order Info: 785-10 - CMP Order Info: 35470-5 - MG Order Info: 2500-04 - TIBC Order Info: 2498-01 - FE Order Info: 2276-01 - LUKE Order Info: 2284-05 FOLS N Performed By: #### L 500.4050, L501.5200, L503.0105, L503.6550, L509.1000, L503.6150, L506.0250, L100.0100, L503.6075, L506.1000 #### [facility] [address] [place], [address] Sodium [Moles/Vol] 137 mmol/L Normal 136-[address] [facility] Comment on above: Order Comment: Order Date: 08/19/24 Order Info: 86-1 - CMP Order Info: 22119-5 - MG Order Info: 2500-04 - TIBC Order Info: 2498-01 - FE Order Info: 2276-01 - LUKE Order Info: 228-8 - FOLS N Performed By: #### L 500.4050, L501.5200, L503.0105, L503.6550, L509.1000, L503.6150, L506.0250, L100.0100, L503.6075, L506.1000 #### [facility] [address] [place], [address] T PROT 8.1 g/dL Normal 6.4-8.2 [facility] Comment on above: Order Comment: Order Date: 08/19/24 Order Info: 785-1 - CMP Order Info: 93425-9 - MG Order Info: 2500-04 - TIBC Order Info: 2498-01 - FE Order Info: 2276-01 - LUKE Order Info: 8 - FOLS N Performed By: #### L 500.4050, L501.5200, L503.0105, L503.6550, L509.1000, L503.6150, L506.0250, L100.0100, L503.6075, L506.1000 #### [facility] [address] [place], [address] Urea nitrogen [Mass/Vol] 24 mg/dL High 7-18 [facility] Comment on above: Order Comment: Order Date: 08/19/24 Order Info: 86-1 - CMP Order Info: 94954-3 - MG Order Info: 7 - TIBC Order Info: 2498-01 - FE Order Info: 2276-01 - LUKE Order Info: 2284-05 - FOLS N Performed By: #### L 500.4050, L501.5200, L503.0105, L503.6550, L509.1000, L503.6150, L506.0250, L100.0100, L503.6075, L506.1000 #### [facility] [address] [place], [place], [id number] Eosinophil percentageOrdered By: Tony Kay on 08-20-2024 Eosinophils/100 WBC (Bld) 2.1 % 0-5 [facility] Erythrocyte distribution wid th ratioOrdered By: Tony Kay on 08-20-2024 Erythrocyte distribution width (RBC) [Ratio] 16.9 % High 11.6-14.6 [facility] Erythrocyte distribution wid th standard deviationOrdered By: Tony Kay on 08-20-2024 Erythrocyte distribution width (RBC) [Entitic vol] 51.9 fL High 35.1-43.9 [facility] Estimated glomerular filtrat ion rate (GFR) AmericanOrdered By: Tony Kay on 08-20-2024 Estimated GFR (MDRD) Amer 77 mL/min >60 [facility] Comment on above: GFR Calc Ferritinon 08-20-2024 Ferritin [Mass/Vol] 164 ng/mL Normal 26-388 [facility] Comment on above: Order Comment: Order Date: 08/19/24 Order Info: 0786-1 - CMP Order Info: 55539-8 - MG Order Info: 2500-7 - TIBC Order Info: 2498-4 - FE Order Info: 2276-01 - LUKE Order Info: 2284-05 - FOLS N Performed By: #### L 500.4050, L501.5200, L503.0105, L503.6550, L509.1000, L503.6150, L506.0250, L100.0100, L503.6075, L506.1000 #### [facility] [address] [place], [place], [address] Ferritin measurementOrdered By: Tony Kay on 08-20-2024 Ferritin [Mass/Vol] 164 ng/mL 26-388 [facility] Folates, (Folic Acid)on 08-08 FOLATES 5.80 ng/mL Normal 3.1-55.4 [facility] Comment on above: Order Comment: Order Date: 08/19/24 Order Info: 0786-1 - CMP Order Info: 90429-6 - MG Order Info: 2500-7 - TIBC Order Info: 2498-4 - FE Order Info: 2276-4 - LUKE Order Info: 228-8 - FOLS N Result Comment: Slig ht Hemolysis, Result may be falsely increased. Performed By: #### L 500.4050, L501.5200, L503.0105, L503.6550, L509.1000, L503.6150, L506.0250, L100.0100, L503.6075, L506.1000 #### [facility] [address] [place], [address] Folic acid measurementOrdere d By: Tony Kay on 08-20-2024 Folate 5.80 ng/mL 3.1-55.4 [facility] Comment on above: Slight Hemolysis, Re sult may be falsely increased. Glomerular filtration rate ( GFR) estimationOrdered By: Tony Kay on 08-20-2024 Estimated GFR (MDRD) Non-Af Amer 64 mL/min >60 [facility] Comment on above: Non- GFR Calc Glucose measurementOrdered B y: Tony Kay on 08-20-2024 Glucose [Mass/Vol] 108 mg/dL High 74-[address] [facility] Comment on above: Fasting Glucose resu lt from 100 to 125 mg/dL suggests IMPAIRED HOMEOSTASIS per A.D.A. criteria. Hematocrit Auto (Bld) [Volum e fraction]Ordered By: Tony Kay on 08-20-2024 Hematocrit (Bld) [Volume fraction] 47.5 % 40-54 [facility] Hemoglobin measurementOrdere d By: Tony Kay on 08-20-2024 Hemoglobin (Bld) [Mass/Vol] 15.1 g/dL 13.0-16.5 [facility] Immature granulocytes/100 WB C Auto (Bld)Ordered By: Tony Kay on 08-20-2024 Immature granulocytes/100 WBC (Bld) 0.500 % 0.0-0.9 [facility] Comment on above: IG% - Immature Granu locytes (promyelocytes, myelocytes and metamyelocytes) > 1% indicates that a LEFT SHIFT is Present. Intact parathyroid hormone ( iPTH) measurementOrdered By: Tony Kay on 08-20-2024 Parathyroid Hormone (Intact) 58.7 pg/mL 18.4-80.1 [facility] Ironon 08-20-2024 Iron [Mass/Vol] 56 ug/dL Low 65-175 [facility] Comment on above: Order Comment: Order Date: 08/19/24 Order Info: 0786-1 - CMP Order Info: 74582-2 - MG Order Info: 2500-7 - TIBC Order Info: 24984 - FE Order Info: 2276-01 - LUKE Order Info: 2284-05 - FOLS N Performed By: #### L 500.4050, L501.5200, L503.0105, L503.6550, L509.1000, L503.6150, L506.0250, L100.0100, L503.6075, L506.1000 #### [facility] [address] [place], [place], [id number] Iron (Unsp spec) [Mass/Mass] Ordered By: Tony Kay on 08-20-2024 Iron [Mass/Vol] 56 ug/dL Low 65-175 [facility] Iron Binding Capacity,Totalo n 08-20-2024 TIBC 411 ug/dL Normal 250-450 [facility] Comment on above: Order Comment: Order Date: 08/19/24 Order Info: 0786-1 - CMP Order Info: 58967-4 - MG Order Info: 2500-7 - TIBC Order Info: 2494 - FE Order Info: 2276-01 - LUKE Order Info: 2284-05 - FOLS N Performed By: #### L 500.4050, L501.5200, L503.0105, L503.6550, L509.1000, L503.6150, L506.0250, L100.0100, L503.6075, L506.1000 #### [facility] [address] [place], [place], [id number] Laboratory - Chemistry and C hemistry - challengeOrdered By: Tony Kay on 08-20-2024 AST [Catalytic activity/Vol] 22 U/L 15-37 [facility] Lymphocytes Auto (Unsp spec) [#/Vol]Ordered By: Tony Kay on 08-20-2024 Lymphocytes (Bld) [#/Vol] 1.70 10*3/uL 0.83-4.51 [facility] Lymphocytes/100 WBC Auto (Un sp spec)Ordered By: Tony Kay on 08-20-2024 Lymphocytes/100 WBC (Bld) 27.8 % 19-41 [facility] MCV (mean corpuscular volume ) determinationOrdered By: Tony Kay on 08-20-2024 MCV (RBC) [Entitic vol] 85.6 fL 80-94 [facility] Magnesiumon 08-20-2024 Magnesium [Mass/Vol] 2.7 mg/dL High 1.6-2.6 [facility] Comment on above: Order Comment: Order Date: 08/19/24 Order Info: 0786-1 - CMP Order Info: 41682-8 - MG Order Info: 2500-7 - TIBC Order Info: 2498-4 - FE Order Info: 2276-4 - LUKE Order Info: 2284-8 - FOLS N Performed By: #### L 500.4050, L501.5200, L503.0105, L503.6550, L509.1000, L503.6150, L506.0250, L100.0100, L503.6075, L506.1000 #### [facility] [address] [place], [place], [address] Magnesium measurementOrdered By: Tony Kay on 08-20-2024 Magnesium [Mass/Vol] 2.7 mg/dL High 1.6-2.6 [facility] Mean corpuscular hemoglobin (MCH) determinationOrdered By: Tony Kay on 08-20-2024 MCH (RBC) [Entitic mass] 27.2 pg 27.0-32.0 [facility] Mean corpuscular hemoglobin concentration (MCHC) determinationOrdered By: Tony Kya on 08-20-2024 MCHC (RBC) [Mass/Vol] 31.8 g/dL Low 32-36 [facility] Mean platelet volume determi nationOrdered By: Tony Kay on 08-20-2024 Platelet mean volume (Bld) [Entitic vol] 10.3 fL 6.2-12.0 [facility] Monocyte percentageOrdered B y: Tony Kay on 08-20-2024 Monocytes/100 WBC (Bld) 10.0 % 0-10 [facility] Neutrophil percentageOrdered By: Tony Kay on 08-20-2024 Neutrophils/100 WBC (Bld) 58.8 % 47-70 [facility] Nucleated red blood cell per centageOrdered By: Tony Kay on 08-20-2024 Nucleated RBC/100 WBC (Bld) [Ratio] 0 % 0-5 [facility] PTHINon 08-20-2024 PTH 58.7 pg/mL Normal 18.4-80.1 [facility] Comment on above: Order Comment: Order Date: 08/19/24 Order Info: 0565-1 - PTHIN Performed By: #### L 500.4050, L501.5200, L503.0105, L503.6550, L509.1000, L503.6150, L506.0250, L100.0100, L503.6075, L506.1000 #### [facility] [address] [place] [address], [id number] Platelet countOrdered By: Diego Kay on 08-20-2024 Platelets (Bld) [#/Vol] 273 10*3/uL 150-450 [facility] Potassium measurementOrdered By: Tony Kay on 08-20-2024 Potassium [Moles/Vol] 3.8 mmol/L 3.5-5.1 [facility] RBC Auto (Bld) [#/Vol]Ordere d By: Tony Kay on 08-20-2024 RBC (Bld) [#/Vol] 5.55 10*6/uL 4.6-6.2 [facility] Serum anion gap measurementO rdered By: Tony Kay on 08-20-2024 Anion gap [Moles/Vol] 7 mmol/L 5-15 [facility] Serum globulin measurementOr dered By: Tony Kay on 08-20-2024 Globulin (S) [Mass/Vol] 4.9 g/dL High 2.2-4.2 [facility] Serum or plasma alanine sevilla otransferase (ALT) measurementOrdered By: Tony Kay on 08-20-2024 ALT [Catalytic activity/Vol] 38 U/L 16-61 [facility] Serum or plasma albumin tracy urement (mass/volume)Ordered By: Tony Kay on 08-20-2024 Albumin [Mass/Vol] 3.2 g/dL 3.2-5.[address] [facility] Serum or plasma alkaline juan sphatase measurementOrdered By: Tony Kay on 08-20-2024 ALP [Catalytic activity/Vol] 75 U/L 45-117 [facility] Serum or plasma calcium tracy urement (mass/volume)Ordered By: Tony Kay on 08-20-2024 Calcium [Mass/Vol] 9.5 mg/dL 8.5-10.[address] [facility] Serum or plasma creatinine m easurement (mass/volume)Ordered By: Tony Kay on 08-20-2024 Creatinine [Mass/Vol] 1.20 mg/dL 0.70-1.30 [facility] Comment on above: The validity of the calculated GFR & GFRAA in patients over 70 years has not been determined. Clinical correlation is essential. Serum or plasma urea nitroge n measurement (mass/volume)Ordered By: Tony Kay on 08-20-2024 Urea nitrogen [Mass/Vol] 24 mg/dL High 7-18 [facility] Sodium levelOrdered By: Tony Kay on 08-20-2024 Sodium [Moles/Vol] 137 mmol/L 136-[address] [facility] TIBCOrdered By: Tony calvillo n 08-20-2024 Total Iron Binding Capacity 411 ug/dL 250-450 [facility] Total proteinOrdered By: Charlette Kay on 08-20-2024 Protein [Mass/Vol] 8.1 g/dL 6.4-8.[address] [facility] Vitamin B12on 08-20-2024 Cobalamin (Vitamin B12) [Mass/Vol] 625 pg/mL Normal [facility] Comment on above: Order Comment: Order Date: 08/19/24 Order Info: 2132-06 - B12 Order Info: 59642-7 - VITD25 Performed By: #### L 500.4050, L501.5200, L503.0105, L503.6550, L509.1000, L503.6150, L506.0250, L100.0100, L503.6075, L506.1000 #### [facility] [address] [place], [address] Vitamin B12 measurementOrder ed By: Tony Kay on 08-20-2024 Cobalamin (Vitamin B12) [Mass/Vol] 625 pg/mL [facility] Vitamin D,25 Hydroxyon 08-20 Vitamin D 25-OH 46.6 ng/mL Normal [facility] Comment on above: Order Comment: Order Date: 08/19/24 Order Info: 2132-06 - B12 Order Info: 62969-3 - VITD25 Result Comment: Mercedez min D 25(OH) Status Range Deficiency <20 ng/mL (50nmol/L) Insufficiency 20 - 30 ng/mL (50 - 75 nmol/L) Sufficiency 30 - 100 ng/mL (75 - 250 nmol/L) Toxicity >100 ng/mL (>250 nmol/L) Performed By: #### L 500.4050, L501.5200, L503.0105, L503.6550, L509.1000, L503.6150, L506.0250, L100.0100, L503.6075, L506.1000 #### [facility] [address] [place], [address] White blood cell (WBC) count Ordered By: Tony Kay on 08-20-2024 WBC (Bld) [#/Vol] 6.1 10*3/uL 4.4-11.[address] [facility] Basic Metabolic Profile (BMP )on 08-07-2024 BUN/CRE 20.3 RATIO High 10-20 [facility] Comment on above: Order Comment: Order Date: 08/19/24 Order Info: 785-1 - CMP Order Info: 01915-5 - MG Order Info: 2500-04 - TIBC Order Info: 2494 - FE Order Info: 2276-01 - LUKE Order Info: 2284-05 - FOLS N Performed By: #### L 500.4050, L501.5200, L503.0105, L503.6550, L509.1000, L503.6150, L506.0250, L100.0100, L503.6075, L506.1000 #### [facility] [address] [place], [place], [address] (214) CA,Total 9.5 mg/dL Normal 8.5-10.1 [facility] Comment on above: Order Comment: Order Date: 08/19/24 Order Info: 785-10 - CMP Order Info: 71262-9 - MG Order Info: 2500-04 - TIBC Order Info: 2498-01 - FE Order Info: 2276-01 - LUKE Order Info: 2284-05 - FOLS N Performed By: #### L 500.4050, L501.5200, L503.0105, L503.6550, L509.1000, L503.6150, L506.0250, L100.0100, L503.6075, L506.1000 #### [facility] [address] [place], [place], [address] (461) Chloride [Moles/Vol] 104 mmol/L Normal 98-107 [facility] Comment on above: Order Comment: Order Date: 08/19/24 Order Info: 785-1 - CMP Order Info: 30594-5 - MG Order Info: 2500-04 - TIBC Order Info: 2494 - FE Order Info: 2276-01 - LUKE Order Info: 8 - FOLS N Performed By: #### L 500.4050, L501.5200, L503.0105, L503.6550, L509.1000, L503.6150, L506.0250, L100.0100, L503.6075, L506.1000 #### [facility] [address] [place], [place], [phone] (525) CO2 [Moles/Vol] 27.0 mmol/L Normal 21.0-32.0 [facility] Comment on above: Order Comment: Order Date: 08/19/24 Order Info: 0786- - CMP Order Info: 68912-8 - MG Order Info: 2500-04 - TIBC Order Info: 4 - FE Order Info: 4 - LUKE Order Info: 8 - FOLS N Performed By: #### L 500.4050, L501.5200, L503.0105, L503.6550, L509.1000, L503.6150, L506.0250, L100.0100, L503.6075, L506.1000 #### [facility] [address] [place], [place], [phone] (627) Creatinine [Mass/Vol] 1.38 mg/dL High 0.70-1.30 [facility] Comment on above: Order Comment: Order Date: 08/19/24 Order Info: 0786- - CMP Order Info: 86416-3 - MG Order Info: 2500-04 - TIBC Order Info: 2498-01 - FE Order Info: 2276-01 - LUKE Order Info: 2284-05 - FOLS N Result Comment: The validity of the calculated GFR GFRAA in patients over 70 years has not been determined. Clinical correlation is essential. Performed By: #### L 500.4050, L501.5200, L503.0105, L503.6550, L509.1000, L503.6150, L506.0250, L100.0100, L503.6075, L506.1000 #### [facility] [address] [place], [address] EST GFR - AA 66 mL/min Normal >60 [facility] Comment on above: Order Comment: Order Date: 08/19/24 Order Info: 785-10 - CMP Order Info: 78942-0 - MG Order Info: 2500-04 - TIBC Order Info: 2498-01 - FE Order Info: 2276-01 - LUKE Order Info: 2284-05 FOLS N Result Comment: Afri can Turkmen GFR Calc Performed By: #### L 500.4050, L501.5200, L503.0105, L503.6550, L509.1000, L503.6150, L506.0250, L100.0100, L503.6075, L506.1000 #### [facility] [address] [place], [place], [id number] GAP 8 Normal 5-15 [facility] Comment on above: Order Comment: Order Date: 08/19/24 Order Info: 785-10 - CMP Order Info: 63237-9 - MG Order Info: 2500-04 TIBC Order Info: 2498-01 FE Order Info: 2276-01 LUKE Order Info: 2284-05 FOLS N Performed By: #### L 500.4050, L501.5200, L503.0105, L503.6550, L509.1000, L503.6150, L506.0250, L100.0100, L503.6075, L506.1000 #### [facility] [address] [place], [place], [phone] GFR/1.73 sq M.predicted among non-blacks MDRD (S/P/Bld) [Vol rate/Area] 54 mL/min/{1.73_m2} Low >60 [facility] Comment on above: Order Comment: Order Date: 08/19/24 Order Info: 785-10 - CMP Order Info: 96880-5 - MG Order Info: 2500-04 - TIBC Order Info: 2498-01 - FE Order Info: 2276-01 - LUKE Order Info: 2284-05 FOLS N Result Comment: Non- GFR Calc Performed By: #### L 500.4050, L501.5200, L503.0105, L503.6550, L509.1000, L503.6150, L506.0250, L100.0100, L503.6075, L506.1000 #### [facility] [address], [address] Glucose [Mass/Vol] 117 mg/dL High 74-[address] [facility] Comment on above: Order Comment: Order Date: 08/19/24 Order Info: 07- - CMP Order Info: 83202-4 - MG Order Info: 2500-04 - TIBC Order Info: 2498-01 - Order Info: 2276-01 - LUKE Order Info: 2284-05 - FOLS N Result Comment: Fast ing Glucose result from 100 to 125 mg/dL suggests IMPAIRED HOMEOSTASIS per A.D.A. criteria. Performed By: #### L 500.4050, L501.5200, L503.0105, L503.6550, L509.1000, L503.6150, L506.0250, L100.0100, L503.6075, L506.1000 #### [facility] [address] [facility] [place], [address] Potassium [Moles/Vol] 4.0 mmol/L Normal 3.5-5.1 [facility] Comment on above: Order Comment: Order Date: 08/19/24 Order Info: 0786- - CMP Order Info: 42899-6 - MG Order Info: 2500-04 - TIBC Order Info: 2498-01 - FE Order Info: 2276-01 - LUKE Order Info: 2284-05 - FOLS N Performed By: #### L 500.4050, L501.5200, L503.0105, L503.6550, L509.1000, L503.6150, L506.0250, L100.0100, L503.6075, L506.1000 #### [facility] [address] [place], [address] Sodium [Moles/Vol] 139 mmol/L Normal 136-[address] [facility] Comment on above: Order Comment: Order Date: 08/19/24 Order Info: 785- - CMP Order Info: 36636-6 - MG Order Info: 2500-04 - TIBC Order Info: 2498-01 - FE Order Info: 2276-01 - LUKE Order Info: 2284-05 - FOLS N Performed By: #### L 500.4050, L501.5200, L503.0105, L503.6550, L509.1000, L503.6150, L506.0250, L100.0100, L503.6075, L506.1000 #### [facility] [address] [place], [address] Urea nitrogen [Mass/Vol] 28 mg/dL High 7-18 [facility] Comment on above: Order Comment: Order Date: 08/19/24 Order Info: 785-10 - CMP Order Info: 41155-7 - MG Order Info: 2500-04 TIBC Order Info: 2498-01 - FE Order Info: 2276-01 LUKE Order Info: 2284-05 - FOLS N Performed By: #### L 500.4050, L501.5200, L503.0105, L503.6550, L509.1000, L503.6150, L506.0250, L100.0100, L503.6075, L506.1000 #### [facility] [address] [facility] [place], [place], [phone] CBC W/Diff, Automatedon 10-3 0-2024 Absolute Lymph 1.93 X10 3/uL Normal 0.83-4.51 [facility] Comment on above: Order Comment: Order Date: 08/19/24 Order Info: 785-10 - CMP Order Info: 74722-5 - MG Order Info: 2500-04 - TIBC Order Info: 2498-01 - FE Order Info: 2276-01 LUKE Order Info: 2284-05 - FOLS N Performed By: #### L 500.4050, L501.5200, L503.0105, L503.6550, L509.1000, L503.6150, L506.0250, L100.0100, L503.6075, L506.1000 #### [facility] [address] [place], [address] Absolute Neut 4.5 X10 3/uL Normal 2.0-7.7 [facility] Comment on above: Order Comment: Order Date: 08/19/24 Order Info: 0786-1 - CMP Order Info: 09879-9 - MG Order Info: 2500-7 - TIBC Order Info: 2498-01 - FE Order Info: 2276-01 - LUKE Order Info: 8 - FOLS N Performed By: #### L 500.4050, L501.5200, L503.0105, L503.6550, L509.1000, L503.6150, L506.0250, L100.0100, L503.6075, L506.1000 #### [facility] [address] [place], [address] Basophils/100 WBC (Bld) 0.4 % Normal 0-1 [facility] Comment on above: Order Comment: Order Date: 08/19/24 Order Info: 1 - CMP Order Info: 99322-2 - MG Order Info: 2500-04 - TIBC Order Info: 2498-01 - FE Order Info: 2276-01 - LUKE Order Info: 8 - FOLS N Performed By: #### L 500.4050, L501.5200, L503.0105, L503.6550, L509.1000, L503.6150, L506.0250, L100.0100, L503.6075, L506.1000 #### [facility] [address] [place], [address] Eosinophils/100 WBC (Bld) 1.8 % Normal 0-5 [facility] Comment on above: Order Comment: Order Date: 08/19/24 Order Info: 0786-1 - CMP Order Info: 72796-0 - MG Order Info: 25007 - TIBC Order Info: 2498-01 - FE Order Info: 2276-01 - LUKE Order Info: 8 - FOLS N Performed By: #### L 500.4050, L501.5200, L503.0105, L503.6550, L509.1000, L503.6150, L506.0250, L100.0100, L503.6075, L506.1000 #### [facility] [address] [place], [address] Erythrocyte distribution width (RBC) [Ratio] 16.7 % High 11.6-14.6 [facility] Comment on above: Order Comment: Order Date: 08/19/24 Order Info: 07-1 - CMP Order Info: 25173-8 - MG Order Info: 2500-04 - TIBC Order Info: 2498-01 - FE Order Info: 2276-01 - LUKE Order Info: 2284-05 - FOLS N Performed By: #### L 500.4050, L501.5200, L503.0105, L503.6550, L509.1000, L503.6150, L506.0250, L100.0100, L503.6075, L506.1000 #### [facility] [address] [place], [address] Hematocrit (Bld) [Volume fraction] 48.1 % Normal 40-54 [facility] Comment on above: Order Comment: Order Date: 08/19/24 Order Info: 07- - CMP Order Info: 78559-8 - MG Order Info: 2500-04 - TIBC Order Info: 2498-01 - FE Order Info: 2276-01 - LUKE Order Info: 2284-05 - FOLS N Performed By: #### L 500.4050, L501.5200, L503.0105, L503.6550, L509.1000, L503.6150, L506.0250, L100.0100, L503.6075, L506.1000 #### [facility] [address] [place], [address] Hemoglobin (Bld) [Mass/Vol] 15.6 g/dL Normal 13.0-16.5 [facility] Comment on above: Order Comment: Order Date: 08/19/24 Order Info: 785-10 - CMP Order Info: 70117-8 - MG Order Info: 2500-04 - TIBC Order Info: 2498-01 - FE Order Info: 2276-01 - ULKE Order Info: 2284-05 FOLS N Performed By: #### L 500.4050, L501.5200, L503.0105, L503.6550, L509.1000, L503.6150, L506.0250, L100.0100, L503.6075, L506.1000 #### [facility] [address] [place], [place], [phone] (781) IG% 0.300 Normal 0.0-0.9 [facility] Comment on above: Order Comment: Order Date: 08/19/24 Order Info: 785-10 - CMP Order Info: 27172-3 - MG Order Info: 2500-04 TIBC Order Info: 2498-01 - FE Order Info: 2276-01 - LUKE Order Info: 2284-05 - FOLS N Result Comment: IG% - Immature Granulocytes (promyelocytes, myelocytes and metamyelocytes) > 1% indicates that a LEFT SHIFT is Present. Performed By: #### L 500.4050, L501.5200, L503.0105, L503.6550, L509.1000, L503.6150, L506.0250, L100.0100, L503.6075, L506.1000 #### [facility] [address] [place], [place], [phone] (591) Lymphocytes/100 WBC (Bld) 26.3 % Normal 19-41 [facility] Comment on above: Order Comment: Order Date: 08/19/24 Order Info: 785-10 - CMP Order Info: 65747-7 - MG Order Info: 2500-04 - TIBC Order Info: 2498-01 - FE Order Info: 2276-01 - LUKE Order Info: 2284-05 FOLS N Performed By: #### L 500.4050, L501.5200, L503.0105, L503.6550, L509.1000, L503.6150, L506.0250, L100.0100, L503.6075, L506.1000 #### [facility] [address] [place], [address] MCH (RBC) [Entitic mass] 26.9 pg Low 27.0-32.0 [facility] Comment on above: Order Comment: Order Date: 08/19/24 Order Info: 07-1 - CMP Order Info: 18184-6 - MG Order Info: 2500-7 - TIBC Order Info: 2494 - FE Order Info: 2276-01 - LUKE Order Info: 2284-05 - FOLS N Performed By: #### L 500.4050, L501.5200, L503.0105, L503.6550, L509.1000, L503.6150, L506.0250, L100.0100, L503.6075, L506.1000 #### [facility] [address] [facility] [place], [address] MCHC (RBC) [Mass/Vol] 32.4 g/dL Normal 32-36 [facility] Comment on above: Order Comment: Order Date: 08/19/24 Order Info: 07-1 - CMP Order Info: 25157-4 - MG Order Info: 7 - TIBC Order Info: 4 - FE Order Info: 2276-01 - LUKE Order Info: 2284-05 - FOLS N Performed By: #### L 500.4050, L501.5200, L503.0105, L503.6550, L509.1000, L503.6150, L506.0250, L100.0100, L503.6075, L506.1000 #### [facility] [address] [facility] [address] [place], [address] MCV (RBC) [Entitic vol] 82.8 fL Normal 80-94 [facility] Comment on above: Order Comment: Order Date: 08/19/24 Order Info: 0786-1 - CMP Order Info: 23040-9 - MG Order Info: 2500-7 - TIBC Order Info: 84 - FE Order Info: 2276-01 - LUKE Order Info: 8 - FOLS N Performed By: #### L 500.4050, L501.5200, L503.0105, L503.6550, L509.1000, L503.6150, L506.0250, L100.0100, L503.6075, L506.1000 #### [facility] [address] [place], [address] Monocytes/100 WBC (Bld) 9.7 % Normal 0-10 [facility] Comment on above: Order Comment: Order Date: 08/19/24 Order Info: 0786- - CMP Order Info: 78651-6 - MG Order Info: 2500-04 - TIBC Order Info: 2498-01 - FE Order Info: 2276-01 - LUKE Order Info: 2284-05 - FOLS N Performed By: #### L 500.4050, L501.5200, L503.0105, L503.6550, L509.1000, L503.6150, L506.0250, L100.0100, L503.6075, L506.1000 #### [facility] [address] [place], [address] Neutrophils/100 WBC (Bld) 61.5 % Normal 47-70 [facility] Comment on above: Order Comment: Order Date: 08/19/24 Order Info: 0786-1 - CMP Order Info: 34953-3 - MG Order Info: 2500-04 - TIBC Order Info: 4 - FE Order Info: 2276-01 - LUKE Order Info: 2284-05 - FOLS N Performed By: #### L 500.4050, L501.5200, L503.0105, L503.6550, L509.1000, L503.6150, L506.0250, L100.0100, L503.6075, L506.1000 #### [facility] [address] [place], [address] Nucleated RBC (Bld) [#/Vol] 0 10*3/uL Normal 0-5 [facility] Comment on above: Order Comment: Order Date: 08/19/24 Order Info: 785-1 - CMP Order Info: 04370-2 - MG Order Info: 2500-7 - TIBC Order Info: 4 - FE Order Info: 2276-01 - LUKE Order Info: 2284-05 - FOLS N Performed By: #### L 500.4050, L501.5200, L503.0105, L503.6550, L509.1000, L503.6150, L506.0250, L100.0100, L503.6075, L506.1000 #### [facility] [address] [place], [place], [phone] (210) Platelet mean volume (Bld) [Entitic vol] 10.0 fL Normal 6.2-12.0 [facility] Comment on above: Order Comment: Order Date: 08/19/24 Order Info: 785-10 - CMP Order Info: 59747-7 - MG Order Info: 2500-04 - TIBC Order Info: 2498-01 - FE Order Info: 2276-01 - LUKE Order Info: 2284-05 - FOLS N Performed By: #### L 500.4050, L501.5200, L503.0105, L503.6550, L509.1000, L503.6150, L506.0250, L100.0100, L503.6075, L506.1000 #### [facility] [address] [place], [place], [phone] (710) Platelets (Bld) [#/Vol] 283 10*3/uL Normal 150-450 [facility] Comment on above: Order Comment: Order Date: 08/19/24 Order Info: 785-1 - CMP Order Info: 39951-2 - MG Order Info: 2500-7 - TIBC Order Info: 4 - FE Order Info: 2276-01 - LUKE Order Info: 2284-05 - FOLS N Performed By: #### L 500.4050, L501.5200, L503.0105, L503.6550, L509.1000, L503.6150, L506.0250, L100.0100, L503.6075, L506.1000 #### [facility] [address] [place], [place], [phone] (234) RBC (Bld) [#/Vol] 5.81 10*6/uL Normal 4.6-6.2 [facility] Comment on above: Order Comment: Order Date: 08/19/24 Order Info: 0786-1 - CMP Order Info: 68749-1 - MG Order Info: 2500-04 - TIBC Order Info: 2498-01 - FE Order Info: 2276-01 - LUKE Order Info: 2284-05 - FOLS N Performed By: #### L 500.4050, L501.5200, L503.0105, L503.6550, L509.1000, L503.6150, L506.0250, L100.0100, L503.6075, L506.1000 #### [facility] [address] [place], [place], [address] RDW SD 49.6 fl High 35.1-43.9 [facility] Comment on above: Order Comment: Order Date: 08/19/24 Order Info: 0786-1 - CMP Order Info: 94087-2 - MG Order Info: 2500-04 - TIBC Order Info: 2498-01 - FE Order Info: 2276-01 - LUKE Order Info: 2284-05 - FOLS N Performed By: #### L 500.4050, L501.5200, L503.0105, L503.6550, L509.1000, L503.6150, L506.0250, L100.0100, L503.6075, L506.1000 #### [facility] [address] [place], [address] WBC (Bld) [#/Vol] 7.3 10*3/uL Normal 4.4-11.[address] [facility] Comment on above: Order Comment: Order Date: 08/19/24 Order Info: 785- - CMP Order Info: 56300-2 - MG Order Info: 2500-04 - TIBC Order Info: 4 - FE Order Info: 2276-01 - LUKE Order Info: 2284-05 - FOLS N Performed By: #### L 500.4050, L501.5200, L503.0105, L503.6550, L509.1000, L503.6150, L506.0250, L100.0100, L503.6075, L506.1000 #### [facility] [address] [place], [place], [id number] Ferritinon 08-06-2024 Ferritin [Mass/Vol] 173 ng/mL Normal 26-388 [facility] Comment on above: Order Comment: Order Date: 08/19/24 Order Info: 785-10 - CMP Order Info: 98613-1 - MG Order Info: 2500-04 - TIBC Order Info: 2498-01 - FE Order Info: 2276-01 - LUKE Order Info: 2284-05 - FOLS N Performed By: #### L 500.4050, L501.5200, L503.0105, L503.6550, L509.1000, L503.6150, L506.0250, L100.0100, L503.6075, L506.1000 #### [facility] [address] [place], [place], [id number] [phone] 08-06-2024 Iron [Mass/Vol] 51 ug/dL Low 65-175 [facility] Comment on above: Order Comment: Order Date: 08/19/24 Order Info: 1 - CMP Order Info: 70813-3 - MG Order Info: 2500-04 - TIBC Order Info: 4 - FE Order Info: 2276-01 - LUKE Order Info: 2284-05 - FOLS N Performed By: #### L 500.4050, L501.5200, L503.0105, L503.6550, L509.1000, L503.6150, L506.0250, L100.0100, L503.6075, L506.1000 #### [facility] [address] [place], [address] Gastroenterology Visit Repor ton 07-02-2024 Gastroenterology Visit Report [facility] Gastroenterology [address] [place] [address] OFFICE VISIT Date of Service: 07/02/24 MR#: [id number] Acct: [id number] Name: BALTAZAR BAY Rep #: [id number] : 1955 Provider: Ben Emmanuel DO Age/Sex: 68/M Location: [facility] [place] Status: Signed Intake Vital Signs 06/16/24 07:28 Height 5 ft 6 in Intake Visit Reasons: Test results Allergies aspirin Allergy (Verified 06/16/24 07:26) Hives Penicillins Allergy (Verified 06/11/24 08:40) Unknown Sulfa (Sulfonamide Antibiotics) Adverse Reaction (Verified 06/16/24 07:26) MIGRAINES Medications ???Medication ???Instructions ???Recorded ???Confirmed ???Type Alpha Lipoic Acid 300 mg PO DAILY 05/25/17 07/02/24 History L.acidoph, paracasei,B. lactis 10 1 ea PO DAILY 05/25/17 07/02/24 History billion cell capsule cyanocobalamin (vitamin B-12) 5,000 mcg PO DAILY 05/25/17 07/02/24 History 5,000 mcg disintegrating tablet furosemide 40 mg tablet 40 mg PO DAILY 05/25/17 07/02/24 History gabapentin 300 mg capsule 300 mg PO QHS 05/25/17 07/02/24 History (Neurontin) magnesium oxide 250 mg PO BID 05/25/17 07/02/24 History lorazepam 1 mg tablet (Ativan) 1 mg PO DAILY PRN anxiety 02/22/23 07/02/24 History cholecalciferol (vitamin D3) 50 2,000 unit PO DAILY 05/29/23 07/02/24 History mcg (2,000 unit) capsule (Vitamin D3) erythromycin 5 mg/gram (0.5 %) eye 1 applic ophthalmic (eye) DAILY 05/29/23 07/02/24 History ointment PRN unkown krill oil 500 mg capsule 500 mg PO DAILY 05/29/23 07/02/24 History triamterene 37.5 1 cap PO DAILY 05/29/23 07/02/24 History mg-hydrochlorothiazide 25 mg capsule potassium chloride 20 mEq 40 meq PO BID Because of diuretics 06/11/24 07/02/24 History tablet,extended release(part/cryst) zinc gluconate 50 mg tablet 50 mg PO DAILY 06/11/24 07/02/24 History bupropion HCl 150 mg tablet,12 hr 150 mg PO QAM 07/02/24 07/02/24 History sustained-release (Wellbutrin SR) Have you fallen in the past year?: No PFSH Medical History Wears hearing aid Wears glasses High cholesterol Back pain Dietary restriction History of diverticulitis CPAP (continuous positive airway pressure) dependence History of edema History of stress test History of echocardiogram History of acoustic neuroma Vocal cord cancer Deafness in right ear Cancer Back problem Seasonal allergies Sleep apnea Allergy, food Vestibular schwannoma HTN (hypertension) Muscle cramps Microscopic colitis Surgical History History of esophagogastroduodenoscop y (EGD) Hx of colonoscopy History of cataract removal with insertion of prosthetic lens H/O hemorrhoidectomy Hx of cataract surgery Family History Uncle Peripheral neuropathy Brother Neuropathy S/P CABG x 4 TONI (obstructive sleep apnea) Father Heart disease Grandmother CAD (coronary artery disease) Grandfather CAD (coronary artery disease) Myocardial infarction Aunt Dementia Aunt Breast cancer Social History Smoking Status: Never smoker alcohol intake: never substance use type: does not use additional social history: Does not use aspirin or ibuprofen. HPI HPI Details: KATHRYN BAY, is a 68 M who presents to the office today for follow up. PCP OV with leg pain for three weeks, HTN. Notes recurrent diverticulitis. ?CT abd/pel 01.28.18???renal calculi, obstructive with inflammation; colonic diverticulosis. ?Bioch emical 04.06.23???BMP without pertinent abnormality ? CRP H10.3 ?Bioch emical 05.21.23???BMP, B1, Vit D25, folate without pertinent abnormality ? B6 H120.1, B12 H1617 *BGI established 06.01.23 reports many episodes of diverticulitis. BM occur daily with harder stool but no difficulty with movement and feels complete evacuation. Reports last colonoscopy 2016 with diverticulosis and no polyps. Hemorrhoidectomy 2011. FH diverticulitis with mother eventually requiring colostomy. ?Bioch emical???CMP, LFT, ferritin, GAME, GUS (Bglobulin H1.4), ANCA, SYLVIA comp, celiac, IBD without pertinent abnormality ? ESR H39, CRP H12.5 ? Stool calprotectin? , lactoferrin, blood WNL? increased total fat, elastase L74 Contact 9.7. (more content not included)... [facility] Colonoscopy Reporton 024 Colonoscopy Report [facility] Medical Records Department [address] [place] [address] Colonoscopy Report MR#: [id number] Acct: [id number] Name: BALTAZAR BAY Rep #: [id number] : 1955 68 From: Ben Emmanuel DO PCP: Dr. Tony Kay MD Status:[facility] Patient Name: Baltazar Bay Procedure Date: 06/16/2024 8:16 AM Date of : 1955 Age: 68 Procedure: Colonoscopy Indications: Abdominal pain in the left lower quadrant, Chronic diarrhea Providers: Ben Emmanuel DO Medicines: Monitored Anesthesia Care Patient Profile: This is a 68 year old male. Refer to note in patient chart for documentation of history and physical. Last Colonoscopy: date unknown. Unable to locate last colonoscopy report. Complications: No immediate complications. Procedure: Pre-Anesthesia Assessment: - Prior to the procedure, a History and Physical was performed, and patient medications and allergies were reviewed. The patient is competent. The risks and benefits of the procedure and the sedation options and risks were discussed with the patient. All questions were answered and informed consent was obtained. Patient identification and proposed procedure were verified by the physician in the pre-procedure area. Mental Status Examination: alert and oriented. Airway Examination: normal oropharyngeal airway and neck mobility. Respiratory Examination: clear to auscultation. CV Examination: normal. Prophylactic Antibiotics: The patient does not require prophylactic antibiotics. Prior Anticoagulants: The patient has taken no anticoagulant or antiplatelet agents except for NSAID medication. ASA Grade Assessment: II - A patient with mild systemic disease. After reviewing the risks and benefits, the patient was deemed in satisfactory condition to undergo the procedure. The anesthesia plan was to use monitored anesthesia care (MAC). Immediately prior to administration of medications, the patient was re-assessed for adequacy to receive sedatives. The heart rate, respiratory rate, oxygen saturations, blood pressure, adequacy of pulmonary ventilation, and response to care were monitored throughout the procedure. The physical status of the patient was re-assessed after the procedure. After I obtained informed consent, the scope was passed under direct vision. Throughout the procedure, the patient's blood pressure, pulse, and oxygen saturations were monitored continuously. The Colonoscope was introduced through the anus and advanced to the terminal ileum. The colonoscopy was performed without difficulty. The patient tolerated the procedure well. The quality of the bowel preparation was adequate. The ileocecal valve, appendiceal orifice, and rectum were photographed. Scope In: 8:28:19 AM Scope Withdrawal Time 0 hours 9 minutes 12 seconds Scope Out: 8:40:17 AM Total Procedure Duration Time 0 hours 11 minutes 58 seconds Findings: The perianal and digital rectal examinations were normal. A 5 mm polyp was found in the rectum. The polyp was sessile. The polyp was removed with a jumbo cold forceps. Resection and retrieval were complete. Verification of patient identification for the specimen was done. Estimated blood loss was minimal. An area of mildly congested mucosa was found in the recto-sigmoid colon, in the sigmoid colon, in the descending colon, at the splenic flexure, in the transverse colon, at the hepatic flexure and in the cecum. Biopsies were taken with a cold forceps for histology. Verification of patient identification for the specimen was done. Estimated blood loss was minimal. Multiple small-mouthed diverticula were found in the recto-sigmoid colon, sigmoid colon, hepatic flexure and ascending colon. The kyle-terminal ileum appeared normal. Impression: - One 5 mm polyp in the rectum, removed with a jumbo cold forceps. Resected and retrieved. - Congested mucosa in the recto-sigmoid colon, in the sigmoid colon, in the descending colon, at the splenic flexure, in the transverse colon, at the hepatic flexure and in the cecum. Biopsied. - Diverticulosis in the recto-sigmoid colon, in the sigmoid colon, at the hepatic flexure and in the ascending colon. - The examined portion of the ileum was normal. - poor sphincter tone Recommendation: - Discharge patient to home. - Resume previous diet. - Continue present medications. - Await pathology results. - Repeat colonoscopy in 5 years for surveillance. Procedure Code(s): --- Professional --- 62906, Colonoscopy, flexible; with biopsy, single or multiple CPT copyright 2021 [employer]. All rights reserved. The codes documented in this report are preliminary and upon accounts payable assistant review may be revised to meet current compliance requirements. Ben Emmanuel DO 06/16/2024 8:50:44 AM This report has been sig (more content not included)... [facility] MR/POSTOP.ANE 06-16-2024 MR/POSTOP.[facility] Medical Records Department [address] [place] [address] Anesthesia Postop Eval I 06/16/24 0847 MR#: [id number] Acct: [id number] Name: BALTAZAR BAY Rep #: [id number] : 1955 68 From: Shay Moses PCP: Dr. Tony Kay MD Status:REG SDC Y Race: C Location: [place] [address] Anesthesia: Postop Eval I Current Vital Signs Temperature: 98.7 F Pulse Rate: 64 Blood Pressure: 107/75 Respiratory Rate: 14 Pulse Ox: 93 Oxygen Delivery Method: Room Air Assessment Airway patent: Yes Spontaneous unlabored respirations: Yes Mental status: Asleep nausea: No Vomiting: No Anesthesia Complication: No Fluid Hydration Crystalloid volume administer (ml): 500 Total IV fluid infused: 500 Progress Note Anesthesia document: Postop Eval 1 completed: Yes 06/16/2448 Date Shay Crook Signature: Date CC: Signed [facility] MR/[id number] 06-16-2024 MR/POSTOPAN2 [facility] Medical Records Department [address] [place] [address] Anesthesia Postop Eval II 06/16/24904 MR#: [id number] Acct: [id number] Name: BALTAZAR BAY Rep #: [id number] : 1955 68 From: Herminio Calvert MD PCP: Dr. Tony Kay MD Status:REG SDC Y Race: C Location: [place] [address]- Anesthesia Postop Eval I Sum Postop Eval Completion status Anesthesia document: Postop Eval 1 completed: Yes Anesthesia Postop Eval I Summary Anesthesia Postop Eval I Summary: Anesthesia Postop Eval I: Assessment Summary Airway patent Yes 06/16/24 08:48 [email or web address] Spontaneous unlabored Yes 06/16/24 08:48 [email or web address] respirations Mental status Asleep 06/16/24 08:48 [email or web address] nausea No 06/16/24 08:48 [email or web address] Vomiting No 06/16/24 08:48 [email or web address] Anesthesia Postop Eval I: Fluid Summary Crystalloid volume administer 500 06/16/24 08:48 [email or web address] (ml) Colloids volume administered ( ml) Blood Product volume administered (ml) Total IV fluid infused 500 06/16/24 08:48 [email or web address] Anesthesia Postop Eval I: Summary Notes Anesthesia Complication No 06/16/24 08:48 [email or web address] Anesthesia Complication Comment: Post-operative progress note Anesthesia: Postop Eval II Evaluation Mental status: Awake Pain Level: 0 nausea: No Vomiting: No 06/16/24904 Date Herminio Calvert MD Cosigner Signature: Date CC: Signed [facility] Surgery Specimen Level Jocelin 06-16-2024 Surgery Specimen Level IV Patient Age/Sex Location Account Attending Physician BALTAZAR BAY 68/M EN [id number] Ben Emmanuel DO Specimen: [id number] Received: 06/16/24 Status: DISHA [place] Num: [id number] Spec Type: COLON BX Subm Dr: Ben Emmaneul DO HEADER OPERATION: Colonoscopy, biopsy PRE-OP DIAGNOSIS: Diarrhea, abdominal pain TISSUE SUBMITTED: A- Cecal biopsy, B- Random colon biopsy, C- Rectal polyp biopsy MICROSCOPIC DIAGNOSIS A. Cecum, biopsy: No pathologic change. B. Colon, random biopsy: No pathologic change. C. Rectal polyp, biopsy: Hyperplastic polyp. AM/mr 06/17/2024 MICROSCOPIC DESCRIPTION Slides are reviewed. GROSS DESCRIPTION A. Received in fixative is one container labeled with the patient's name and designated Cecal biopsy. The specimen consists of two irregular fragments of light peña soft tissue that in aggregate measure 0.8 x 0.3 x 0.1 cm. The specimen is totally submitted in one cassette. B. Received in fixative is one container labeled with the patient's name and designated Random colonic biopsy. The specimen consists of multiple irregular fragments of light peña soft tissue that in aggregate measure 1.5 x 0.5 x 0.1 cm. The specimen is totally submitted in one cassette. C. Received in fixative is one container labeled with the patient's name and designated Rectal polyp biopsy. The specimen consists of one irregular fragment of light peña soft tissue that measures 0.3 x 0.3 x 0.1 cm. The specimen is totally submitted in one cassette. 06/16/2024 TC:5 CPT:02313l0 Patient Age/Sex Location Account Attending Physician BALTAZAR BAY/Corbin QUEEN [id number] Ben Emmanuel DO Signed (signature on file) Dr. Ras Armas, 06/17/24 1202 [facility] Comment on above: Performed By: #### L 500.4050, L501.5200, L503.0105, L503.6550, L509.1000, L503.6150, L506.0250, L100.0100, L503.6075, L506.1000 #### [facility] [address] [facility] [facility], [address] Wound Cultureon 06-15-2024 WC #2 Possible skin contamination, further Identification and sensitivity will be performed only by physician's request. Staphylococcus lugdunensis Amount Growth 2+ Coag Negative Staph Amount Growth 2+ Staphylococcus lugdunensis: REACTION cefOXitin Susc Islt NEG Clindamycin Islt RICKI <=0.12 S Clindamycin.induced Susc Islt NEG Erythromycin Islt RICKI <=0.25 S Gentamicin Islt RICKI <=0.5 S Oxacillin Susc Islt 2 S Tetracycline Islt RICKI <=1 S Vancomycin Islt RICKI <=0.5 S [facility] Comment on above: Performed By: #### L 500.4050, L501.5200, L503.0105, L503.6550, L509.1000, L503.6150, L506.0250, L100.0100, L503.6075, L506.1000 #### [facility] [address] [facility] [facility] [place], [address] Gram Stainon 06-13-2024 GS Gram Stain Rare Epithelial cells No organisms seen No White Blood Cells [facility] Comment on above: Performed By: #### L 500.4050, L501.5200, L503.0105, L503.6550, L509.1000, L503.6150, L506.0250, L100.0100, L503.6075, L506.1000 #### [facility] [address] [place], [place], [address] Gastroenterology Visit Repor ton 05-30-2024 Gastroenterology Visit Report [facility] Gastroenterology [address] [place] [address] OFFICE VISIT Date of Service: 05/30/24 MR#: [id number] Acct: [id number] Name: BALTAZAR BAY Rep #: [id number] : 1955 Provider: Ben Emmanuel DO Age/Sex: 68/M [facility] Status: Signed Intake Vital Signs 08/28/23 14:14 Height 5 ft 6 in Intake Visit Reasons: 6 M FU Allergies aspirin Allergy (Verified 11/26/23 10:47) Hives Penicillins Allergy (Verified 11/26/23 10:47) Unknown Sulfa (Sulfonamide Antibiotics) Adverse Reaction (Verified 11/26/23 10:47) MIGRAINES Medications ???Medication ???Instructions ???Recorded ???Confirmed ???Type Alpha Lipoic Acid 300 mg PO BID 05/25/17 05/30/24 History L.acidoph, paracasei,B. lactis 10 1 ea PO DAILY 05/25/17 05/30/24 History billion cell capsule cyanocobalamin (vitamin B-12) 5,000 mcg PO DAILY 05/25/17 05/30/24 History 5,000 mcg disintegrating tablet furosemide 40 mg tablet 40 mg PO DAILY 05/25/17 05/30/24 History gabapentin 300 mg capsule 300 mg PO QHS 05/25/17 05/30/24 History (Neurontin) magnesium oxide 250 mg PO BID 05/25/17 05/30/24 History lorazepam 1 mg tablet (Ativan) 1 mg PO DAILY PRN anxiety 02/22/23 05/30/24 History cholecalciferol (vitamin D3) 50 2,000 unit PO DAILY 05/29/23 05/30/24 History mcg (2,000 unit) capsule (Vitamin D3) erythromycin 5 mg/gram (0.5 %) eye 1 applic ophthalmic (eye) DAILY 05/29/23 05/30/24 History ointment PRN unkown krill oil 500 mg capsule 500 mg PO DAILY 05/29/23 05/30/24 History potassium citrate 10 mEq (1,080 10 meq PO .qid 05/29/23 05/30/24 History mg) tablet,extended release triamterene 37.5 1 cap PO DAILY 05/29/23 05/30/24 History mg-hydrochlorothiazide 25 mg capsule prazosin 1 mg capsule 1 mg PO QHS #30 caps 05/30/24 05/30/24 Rx Have you fallen in the past year?: No PFSH Medical History Allergy, food Back problem Cancer Deafness in right ear HTN (hypertension) Microscopic colitis Muscle cramps Seasonal allergies Sleep apnea Vestibular schwannoma Vocal cord cancer Surgical History H/O hemorrhoidectomy History of cataract removal with insertion of prosthetic lens Hx of cataract surgery Family History Uncle Peripheral neuropathy Brother Neuropathy S/P CABG x 4 TONI (obstructive sleep apnea) Father Heart disease Grandmother CAD (coronary artery disease) Grandfather CAD (coronary artery disease) Myocardial infarction Aunt Dementia Aunt Breast cancer Social History Smoking Status: Never smoker alcohol intake: never substance use type: does not use additional social history: Does not use aspirin or ibuprofen. HPI HPI Details: BALTAZAR LORADAVONTE, is a 68 M who presents to the office today for follow up. PCP OV with leg pain for three weeks, HTN. Notes recurrent diverticulitis. ?CT abd/pel 4.23.18???renal calculi, obstructive with inflammation; colonic diverticulosis. ?Bioch emical 04.06.23???BMP without pertinent abnormality ? CRP H10.3 ?Bioch emical 05.21.23???BMP, B1, Vit D25, folate without pertinent abnormality ? B6 H120.1, B12 H1617 *BGI established 06.01.23 reports many episodes of diverticulitis. BM occur daily with harder stool but no difficulty with movement and feels complete evacuation. Reports last colonoscopy 2016 with diverticulosis and no polyps. Hemorrhoidectomy 2011. FH diverticulitis with mother eventually requiring colostomy. ?Bioch emical???CMP, LFT, ferritin, GAME, GUS (Bglobulin H1.4), ANCA, SYLVIA comp, celiac, IBD without pertinent abnormality ? ESR H39, CRP H12.5 ? Stool calprotectin? , lactoferrin, blood WNL? increased total fat, elastase L74 Contact 06.14.23 recommending Creon for low elastase; having LLQ discomfort and loose stools. ?CT abd/pel 06.28.23???hepatic fatty infiltration; real calculus and cyst; small umbilical hernia with short segment of small bowel and fat; diverticulosis; enlarged prostate. ? OV 11.26.23 Pt states he has has LLQ pain the last 4 weeks. Is not as severe as it was previously but still bothers him. Did h (more content not included)... [facility] Basophil percentageOrdered B y: Pepito Corona on 01-22-2024 Basophil percentage 5.71 ng/mL 0.0-4.0 [facility] Comment on above: This test was perfor med using the TPSA assay method for the[employer] chemistry system. Values obtained with differentassay methods cannot be used interchangably.When changing PSA assays in the course of monitoring apatient, additional sequential testing should be carriedout to confirm baseline values. Chloride [Moles/Vol] 102 mmol/L 98-107 [facility] Glucose [Mass/Vol] 127 mg/dL 74-[address] [facility] Comment on above: Fasting Glucose resu lt greater than or equal to 126 mg/dL suggests DIABETES MELLITUS per A.D.A. criteria. Potassium [Moles/Vol] 3.6 mmol/L 3.5-5.1 [facility] Sodium [Moles/Vol] 138 mmol/L 136-[address] [facility] - Chemistry and C hemistry - challengeOrdered By: Pepito Corona on 01-22-2024 CO2 [Moles/Vol] 30.0 mmol/L 21.0-32.0 [facility] Urea nitrogen/Creatinine [Mass ratio] 22.1 mg/mg 10-20 [facility] No Panel InformationOrdered By: Pepito Corona on 01-22-2024 Estimated GFR (MDRD) Amer 58 mL/min >60 [facility] Comment on above: GFR Calc Estimated GFR (MDRD) Non-Af Amer 48 mL/min >60 [facility] Comment on above: Non- GFR Calc SS-A/Ro IgG Antibody < 0.2 AI 0.0-0.9 [facility] SS-B/La IgG Antibody < 0.2 AI 0.0-0.9 [facility] Comment on above: Performed at: [facility] [place] [id number] Director: Hesham Christopher PhD, Phone: [phone] Serum or plasma calcium tracy urement (mass/volume)Ordered By: Pepito Corona on 01-22-2024 Calcium [Mass/Vol] 9.5 mg/dL 8.5-10.[address] [facility] Serum or plasma creatinine m easurement (mass/volume)Ordered By: Pepito Corona on 01-22-2024 Creatinine [Mass/Vol] 1.54 mg/dL 0.70-1.30 [facility] Comment on above: The validity of the calculated GFR & GFRAA in patients over 70 years has not been determined. Clinical correlation is essential. Serum or plasma urea nitroge n measurement (mass/volume)Ordered By: Pepito Corona on 01-22-2024 Urea nitrogen [Mass/Vol] 34 mg/dL 7-18 [facility] Thin prep Papanicolaou smear with manual screeningOrdered By: Pepito Corona on 01-22-2024 Thin prep Papanicolaou smear with manual screening 6 5-15 [facility] Basophil percentageOrdered B y: Tony Kay on 12-28-2023 Bilirubin [Mass/Vol] 0.40 mg/dL 0.20-1.00 [facility] Comment on above: For patients on eltr ombopag therapy, use of Dimension [place] TBIL is not recommended. Chloride [Moles/Vol] 100 mmol/L 98-107 [facility] Glucose [Mass/Vol] 117 mg/dL 74-[address] [facility] Comment on above: Fasting Glucose resu lt from 100 to 125 mg/dL suggests IMPAIRED HOMEOSTASIS per A.D.A. criteria. Potassium [Moles/Vol] 3.7 mmol/L 3.5-5.1 [facility] Protein [Mass/Vol] 8.1 g/dL 6.4-8.[address] [facility] Sodium [Moles/Vol] 137 mmol/L 136-[address] [facility] - Chemistry and C hemistry - challengeOrdered By: Tony Kay on 12-28-2023 Albumin/Globulin [Mass ratio] 0.7 {ratio} 0.9-2.4 [facility] ALP [Catalytic activity/Vol] 74 U/L 45-117 [facility] ALT [Catalytic activity/Vol] 34 U/L 16-61 [facility] CO2 [Moles/Vol] 31.0 mmol/L 21.0-32.0 [facility] Globulin (S) [Mass/Vol] 4.7 g/dL 2.2-4.2 [facility] Urea nitrogen/Creatinine [Mass ratio] 21.7 mg/mg 10-20 [facility] No Panel InformationOrdered By: Tony Kay on 12-28-2023 C-Reactive Protein Extended Range 12.20 mg/L 0.0-3.0 [facility] [facility] Comment on above: C-Reactive Protein ( CRP) provides useful information for thediagnosis, therapy and monitoring of inflammatory processesand associated diseases. For the evaluation of Relative Riskfor Cardiovascular Disease, a High Sensitivity CRP (HSCRP)should be ordered. Estimated GFR (MDRD) Amer 71 mL/min >60 [facility] Comment on above: GFR Calc Estimated GFR (MDRD) Non-Af Amer 59 mL/min >60 [facility] Comment on above: Non- GFR Calc Serum or plasma calcium tracy urement (mass/volume)Ordered By: Tony Kay on 03-22-2024 Calcium [Mass/Vol] 9.5 mg/dL 8.5-10.[address] [facility] Serum or plasma creatinine m easurement (mass/volume)Ordered By: Tony Kay on 12-28-2023 Creatinine [Mass/Vol] 1.29 mg/dL 0.70-1.30 [facility] Comment on above: The validity of the calculated GFR & GFRAA in patients over 70 years has not been determined. Clinical correlation is essential. Serum or plasma urea nitroge n measurement (mass/volume)Ordered By: Tony Kay on 12-28-2023 Urea nitrogen [Mass/Vol] 28 mg/dL 7-18 [facility] Thin prep Papanicolaou smear with manual screeningOrdered By: Tony Kay on 12-28-2023 Thin prep Papanicolaou smear with manual screening 3.4 g/dL 3.2-5.0 [facility] Thin prep Papanicolaou smear with manual screening 22 U/L 15-37 [facility] Thin prep Papanicolaou smear with manual screening 6 5-15 [facility] Basophil percentageOrdered B y: Tony Kay on 12-14-2023 Chloride [Moles/Vol] 102 mmol/L 98-107 [facility] Glucose [Mass/Vol] 113 mg/dL 74-[address] [facility] Comment on above: Fasting Glucose resu lt from 100 to 125 mg/dL suggests IMPAIRED HOMEOSTASIS per A.D.A. criteria. Potassium [Moles/Vol] 4.0 mmol/L 3.5-5.1 [facility] Sodium [Moles/Vol] 138 mmol/L 136-[address] [facility] Laboratory - Chemistry and C hemistry - challengeOrdered By: Tony Kay on 12-14-2023 CO2 [Moles/Vol] 29.0 mmol/L 21.0-32.0 [facility] Magnesium [Mass/Vol] 2.5 mg/dL 1.6-2.6 [facility] Urea nitrogen/Creatinine [Mass ratio] 23.9 mg/mg 10-20 [facility] No Panel InformationOrdered By: Tony Kay on 12-14-2023 C-Reactive Protein Extended Range 9.94 mg/L 0.0-3.0 [facility] Comment on above: C-Reactive Protein ( CRP) provides useful information for thediagnosis, therapy and monitoring of inflammatory processesand associated diseases. For the evaluation of Relative Riskfor Cardiovascular Disease, a High Sensitivity CRP (HSCRP)should be ordered. Estimated GFR (MDRD) Amer 68 mL/min >60 [facility] Comment on above: GFR Calc Estimated GFR (MDRD) Non-Af Amer 56 mL/min >60 [facility] Comment on above: Non- GFR Calc Serum or plasma calcium tracy urement (mass/volume)Ordered By: Tony Kay on 12-14-2023 Calcium [Mass/Vol] 9.6 mg/dL 8.5-10.[address] [facility] Serum or plasma creatinine m easurement (mass/volume)Ordered By: Tony Kay on 12-14-2023 Creatinine [Mass/Vol] 1.34 mg/dL 0.70-1.30 [facility] Comment on above: The validity of the calculated GFR & GFRAA in patients over 70 years has not been determined. Clinical correlation is essential. Serum or plasma urea nitroge n measurement (mass/volume)Ordered By: Tony Kay on 12-14-2023 Urea nitrogen [Mass/Vol] 32 mg/dL 7-18 [facility] Thin prep Papanicolaou smear with manual screeningOrdered By: Tony Kay on 12-14-2023 Thin prep Papanicolaou smear with manual screening 7 5-15 [facility] No Panel InformationOrdered By: Ben Emmanuel on 11-27-2023 C-Reactive Protein Extended Range 14.10 mg/L 0.0-3.0 [facility] Comment on above: C-Reactive Protein ( CRP) provides useful information for thediagnosis, therapy and monitoring of inflammatory processesand associated diseases. For the evaluation of Relative Riskfor Cardiovascular Disease, a High Sensitivity CRP (HSCRP)should be ordered. Basophil percentageOrdered B y: Tony Kay on 11-07-2023 Chloride [Moles/Vol] 105 mmol/L 98-107 [facility] Glucose [Mass/Vol] 121 mg/dL 74-[address] [facility] Comment on above: Fasting Glucose resu lt from 100 to 125 mg/dL suggests IMPAIRED HOMEOSTASIS per A.D.A. criteria. Potassium [Moles/Vol] 4.6 mmol/L 3.5-5.1 [facility] Sodium [Moles/Vol] 135 mmol/L 136-[address] [facility] Laboratory - Chemistry and C hemistry - challengeOrdered By: Tony Kay on 11-07-2023 CO2 [Moles/Vol] 27.0 mmol/L 21.0-32.0 [facility] Magnesium [Mass/Vol] 2.9 mg/dL 1.6-2.6 [facility] Urea nitrogen/Creatinine [Mass ratio] 25.4 mg/mg 10-20 [facility] No Panel InformationOrdered By: Tony Kay on 11-07-2023 Estimated GFR (MDRD) Amer 71 mL/min >60 [facility] Comment on above: GFR Calc Estimated GFR (MDRD) Non-Af Amer 58 mL/min >60 [facility] Comment on above: Non- GFR Calc Serum or plasma calcium tracy urement (mass/volume)Ordered By: Tony Kay on 11-07-2023 Calcium [Mass/Vol] 9.7 mg/dL 8.5-10.[address] [facility] Serum or plasma creatinine m easurement (mass/volume)Ordered By: Tony Kay on 11-07-2023 Creatinine [Mass/Vol] 1.30 mg/dL 0.70-1.30 [facility] Comment on above: The validity of the calculated GFR & GFRAA in patients over 70 years has not been determined. Clinical correlation is essential. Serum or plasma urea nitroge n measurement (mass/volume)Ordered By: Tony Kay on 11-07-2023 Urea nitrogen [Mass/Vol] 33 mg/dL -18 [facility] Thin prep Papanicolaou smear with manual screeningOrdered By: Tony Kay on 11-07-2023 Thin prep Papanicolaou smear with manual screening 3 5-15 [facility] Basophil percentageOrdered B y: Tony Kay on 09-24-2023 Chloride [Moles/Vol] 104 mmol/L 98-107 [facility] Glucose [Mass/Vol] 123 mg/dL 74-[address] [facility] Comment on above: Fasting Glucose resu lt from 100 to 125 mg/dL suggests IMPAIRED HOMEOSTASIS per A.D.A. criteria. Potassium [Moles/Vol] 4.1 mmol/L 3.5-5.1 [facility] Sodium [Moles/Vol] 137 mmol/L 136-[address] [facility] Laboratory - Chemistry and C hemistry - challengeOrdered By: Tony Kay on 09-24-2023 CO2 [Moles/Vol] 28.0 mmol/L 21.0-32.0 [facility] Magnesium [Mass/Vol] 2.7 mg/dL 1.6-2.6 [facility] Urea nitrogen/Creatinine [Mass ratio] 22.2 mg/mg 10-20 [facility] No Panel InformationOrdered By: Tony Kay on 09-24-2023 Estimated GFR (MDRD) Amer 68 mL/min >60 [facility] Comment on above: GFR Calc Estimated GFR (MDRD) Non-Af Amer 56 mL/min >60 [facility] Comment on above: Non- GFR Calc Serum or plasma calcium tracy urement (mass/volume)Ordered By: Tony Kay on 09-24-2023 Calcium [Mass/Vol] 9.4 mg/dL 8.5-10.[address] [facility] Serum or plasma creatinine m easurement (mass/volume)Ordered By: Tony Kay on 09-24-2023 Creatinine [Mass/Vol] 1.35 mg/dL 0.70-1.30 [facility] Comment on above: The validity of the calculated GFR & GFRAA in patients over 70 years has not been determined. Clinical correlation is essential. Serum or plasma urea nitroge n measurement (mass/volume)Ordered By: Tony Kay on 09-24-2023 Urea nitrogen [Mass/Vol] 30 mg/dL 04-24 [facility] Thin prep Papanicolaou smear with manual screeningOrdered By: Tony Kay on 09-24-2023 Thin prep Papanicolaou smear with manual screening 5 5-15 [facility] Basophil percentageOrdered B y: Tony Kay on 09-13-2023 Chloride [Moles/Vol] 104 mmol/L 98-107 [facility] Glucose [Mass/Vol] 122 mg/dL 74-[address] [facility] Comment on above: Fasting Glucose resu lt from 100 to 125 mg/dL suggests IMPAIRED HOMEOSTASIS per A.D.A. criteria. Potassium [Moles/Vol] 4.1 mmol/L 3.5-5.1 [facility] Sodium [Moles/Vol] 136 mmol/L 136-[address] [facility] Laboratory - Chemistry and C hemistry - challengeOrdered By: Tony Kay on 09-13-2023 CO2 [Moles/Vol] 28.0 mmol/L 21.0-32.0 [facility] Urea nitrogen/Creatinine [Mass ratio] 23.7 mg/mg 10-20 [facility] No Panel InformationOrdered By: Tony Kay on 09-13-2023 Estimated GFR (MDRD) Amer 70 mL/min >60 [facility] Comment on above: GFR Calc Estimated GFR (MDRD) Non-Af Amer 58 mL/min >60 [facility] Comment on above: Non- GFR Calc Serum or plasma calcium tracy urement (mass/volume)Ordered By: Tony Kay on 09-13-2023 Calcium [Mass/Vol] 9.5 mg/dL 8.5-10.[address] [facility] Serum or plasma creatinine m easurement (mass/volume)Ordered By: Tony Kay on 09-13-2023 Creatinine [Mass/Vol] 1.31 mg/dL 0.70-1.30 [facility] Comment on above: The validity of the calculated GFR & GFRAA in patients over 70 years has not been determined. Clinical correlation is essential. Serum or plasma urea nitroge n measurement (mass/volume)Ordered By: Tony Kay on 09-13-2023 Urea nitrogen [Mass/Vol] 31 mg/dL 7-18 [facility] Thin prep Papanicolaou smear with manual screeningOrdered By: Tony Kay on 09-13-2023 Thin prep Papanicolaou smear with manual screening 4 5-15 [facility] Basophil percentageOrdered B y: Tony Kay on 08-14-2023 Chloride [Moles/Vol] 102 mmol/L 98-107 [facility] Glucose [Mass/Vol] 118 mg/dL 74-[address] [facility] Comment on above: Fasting Glucose resu lt from 100 to 125 mg/dL suggests IMPAIRED HOMEOSTASIS per A.D.A. criteria. Potassium [Moles/Vol] 4.1 mmol/L 3.5-5.1 [facility] Comment on above: Slight Hemolysis, Re sult may be falsely increased. Sodium [Moles/Vol] 135 mmol/L 136-[address] [facility] Laboratory - Chemistry and C hemistry - challengeOrdered By: Tony Kay on 08-14-2023 CO2 [Moles/Vol] 31.0 mmol/L 21.0-32.0 [facility] Magnesium [Mass/Vol] 2.4 mg/dL 1.6-2.6 [facility] Comment on above: Slight Hemolysis, Re sult may be falsely increased. Urea nitrogen/Creatinine [Mass ratio] 23.1 mg/mg 10-20 [facility] No Panel InformationOrdered By: Tony Kay on 08-14-2023 Estimated GFR (MDRD) Amer 77 mL/min >60 [facility] Comment on above: GFR Calc Estimated GFR (MDRD) Non-Af Amer 64 mL/min >60 [facility] Comment on above: Non- GFR Calc Serum or plasma calcium tracy urement (mass/volume)Ordered By: Tony Kay on 08-14-2023 Calcium [Mass/Vol] 9.3 mg/dL 8.5-10.[address] [facility] Serum or plasma creatinine m easurement (mass/volume)Ordered By: Tony Kay on 08-14-2023 Creatinine [Mass/Vol] 1.21 mg/dL 0.70-1.30 [facility] Comment on above: The validity of the calculated GFR & GFRAA in patients over 70 years has not been determined. Clinical correlation is essential. Serum or plasma urea nitroge n measurement (mass/volume)Ordered By: Tony Kay on 08-14-2023 Urea nitrogen [Mass/Vol] 28 mg/dL 7-18 [facility] Thin prep Papanicolaou smear with manual screeningOrdered By: Tony Kay on 08-14-2023 Thin prep Papanicolaou smear with manual screening 2 5-15 [facility] Basophil percentageOrdered B y: Rodney Salvador on 06-15-2023 Chloride [Moles/Vol] 104 mmol/L 98-107 [facility] Glucose [Mass/Vol] 113 mg/dL 74-[address] [facility] Comment on above: Fasting Glucose resu lt from 100 to 125 mg/dL suggests IMPAIRED HOMEOSTASIS per A.D.A. criteria. Potassium [Moles/Vol] 4.5 mmol/L 3.5-5.1 [facility] Sodium [Moles/Vol] 137 mmol/L 136-[address] [facility] Laboratory - Chemistry and C hemistry - challengeOrdered By: Rodney Salvador on 06-15-2023 CO2 [Moles/Vol] 29.0 mmol/L 21.0-32.0 [facility] Magnesium [Mass/Vol] 2.6 mg/dL 1.6-2.6 [facility] Urea nitrogen/Creatinine [Mass ratio] 23.7 mg/mg 10-20 [facility] No Panel InformationOrdered By: Rodney Salvador on 06-15-2023 Estimated GFR (MDRD) Amer 70 mL/min >60 [facility] Comment on above: GFR Calc Estimated GFR (MDRD) Non-Af Amer 58 mL/min >60 [facility] Comment on above: Non- GFR Calc Vitamin B6 Level 28.7 ug/L 3.4-65.2 [facility] Comment on above: Deficiency: <3.4 Mar ginal: 3.4 - 5.1 Adequate: >5.1Performed at: [facility] [id number] Director: Carlos Sim MD, Phone: [phone] Serum or plasma calcium tracy urement (mass/volume)Ordered By: Rodney Salvador on 06-15-2023 Calcium [Mass/Vol] 9.2 mg/dL 8.5-10.[address] [facility] Serum or plasma creatinine m easurement (mass/volume)Ordered By: Rodney Salvador on 06-15-2023 Creatinine [Mass/Vol] 1.31 mg/dL 0.70-1.30 [facility] Comment on above: The validity of the calculated GFR & GFRAA in patients over 70 years has not been determined. Clinical correlation is essential. Serum or plasma urea nitroge n measurement (mass/volume)Ordered By: Rodney Salvador on 06-15-2023 Urea nitrogen [Mass/Vol] 31 mg/dL 7-18 [facility] Thin prep Papanicolaou smear with manual screeningOrdered By: Rodney Salvador on 06-15-2023 Thin prep Papanicolaou smear with manual screening 4 5-15 [facility] No Panel InformationOrdered By: Ben Emmanuel on 06-04-2023 Giardia Antigen (RICKI) [facility] Giardia Antigen (RICKI) [facility] Miscellaneous Test [address] [facility] Comment on above: Salmonella/Shigella Screen No Salmonella or Shigella recovered.Campylobacter Culture No Campylobacter species isolated.E coli Shiga Toxin EIA Negative ____ TESTING PERFORMED AT [facility]. ORIGINAL REPORT ON FILE IN LAB CONTAINS ADDITIONAL TEST SITE INFORMATION. Stool Calprotectin 13 ug/g 0-[address] [facility] Comment on above: Concentration Interp retation Follow-Up< 5 - 50 ug/g Normal None>50 -120 ug/g Borderline Re-evaluate in 4-6 weeks >120 ug/g Abnormal Repeat as clinically indicatedPerformed at: [address] [id number] Director: Hesham Christopher PhD, Phone: [phone] at: [address] [id number] Director: Carlos Sim MD, Phone: [phone] Stool Neutral Fats Normal . [facility] Comment on above: Normal (<60 Droplets /HPF) Stool Pancreatic Elastase 74 >200 [facility] Comment on above: Result Units: ug [address]gResults verified by repeat testing Severe Pancreatic Insufficiency: <100 Moderate Pancreatic Insufficiency: 100 - 200 Normal: >200Performed at: [address] [id number] Director: Carlos Sim MD, Phone: [phone] Ova and parasitesOrdered By: Ben Emmanuel on 06-04-2023 Ova and parasites identified LM Nom (Unsp spec) [facility] Ova and parasites identified LM Nom (Unsp spec) [facility] Qualitative fecal fat or lip idsOrdered By: Ben Emmanuel on 06-04-2023 Fat Ql (Stl) Increased . [facility] Comment on above: Normal (<100 Droplet s/HPF) Atypical perinuclear antineu trophil cytoplasmic antibodies measurementOrdered By: Ben Emmanuel on 06-01-2023 Neutrophil cytoplasmic Ab.perinuclear.atypical IF (S) [Titer] <1:20 titer Neg:<1:20 [facility] Comment on above: The atypical pANCA p attern has been observed in asignificant percentage of patients with ulcerative colitis,primary sclerosing cholangitis and autoimmune hepatitis.Performed at: - [facility] [id number] Director: Hesham Christopher PhD, Phone: [phone] at: - [facility] [id number] Director: Carlos Sim MD, Phone: [phone] Basophil percentageOrdered B y: Ben Emmanuel on 06-01-2023 Basophil percentage < 0.2 AI 0.0-0.9 [facility] Bilirubin [Mass/Vol] 0.40 mg/dL 0.20-1.00 [facility] Comment on above: For patients on eltr ombopag therapy, use of Dimension [place] TBIL is not recommended. Chloride [Moles/Vol] 104 mmol/L 98-107 [facility] Glucose [Mass/Vol] 110 mg/dL 74-[address] [facility] Comment on above: Fasting Glucose resu lt from 100 to 125 mg/dL suggests IMPAIRED HOMEOSTASIS per A.D.A. criteria. Potassium [Moles/Vol] 3.5 mmol/L 3.5-5.1 [facility] Protein [Mass/Vol] 8.2 g/dL 6.4-8.[address] [facility] Sodium [Moles/Vol] 139 mmol/L 136-[address] [facility] Erythrocyte sedimentation ra teOrdered By: Ben Emmanuel on 06-01-2023 ESR (Bld) [Velocity] 39 mm/h 0-20 [facility] Interpretation of serum or p lasma protein pattern by immunofixation (narrative resultOrdered By: Ben Emmanuel on 06-01-2023 Protein Fractions Immunofixation Harsha [Interp] See comment [facility] Comment on above: Result: Not Observed Laboratory - Chemistry and C hemistry - challengeOrdered By: Ben Emmanuel on 06-01-2023 ALP [Catalytic activity/Vol] 72 U/L 45-117 [facility] ALT [Catalytic activity/Vol] 41 U/L 16-61 [facility] CO2 [Moles/Vol] 28.0 mmol/L 21.0-32.0 [facility] Urea nitrogen/Creatinine [Mass ratio] 23.1 mg/mg 10-20 [facility] No Panel InformationOrdered By: Ben Emmanuel on 06-01-2023 Addendum Document Comment . [facility] Comment on above: Protein electrophore sis scan will follow via computer,mail, or career services assistant delivery. Centromere B Antibody <0.2 AI 0.0-0.9 [facility] Endomysial IgA Antibody Negative Negative [facility] Estimated GFR (MDRD) Amer 80 mL/min >60 [facility] Comment on above: GFR Calc Estimated GFR (MDRD) Non-Af Amer 66 mL/min >60 [facility] Comment on above: Non- GFR Calc Immunoglobulin E 229 IU/mL 6-495 [facility] SHRIMPER Antibody <0.2 AI 0.0-0.9 [facility] Serum DNA double strand anti body assay (units/volume)Ordered By: Ben Emmanuel on 06-01-2023 DNA double strand Ab Qn (S) 4 [IU]/mL 0-9 [facility] Comment on above: Negative <5 Equivoca l 5 - 9 Positive >[address]1 antibody assay (u nits/volume)Ordered By: Ben Emmanuel on 06-01-2023 Court-1 extractable nuclear Ab Qn (S) <0.2 AI 0.0-0.9 [facility] Serum Scl-70 extractable nuc lear antibody assay (units/volume)Ordered By: Ben Emmanuel on 06-01-2023 SCL-70 extractable nuclear Ab Qn (S) <0.2 AI 0.0-0.9 [facility] Serum Kay extractable nucl ear antibody detectionOrdered By: Ben Emmanuel on 06-01-2023 Kay extractable nuclear Ab Ql (S) <0.2 AI 0.0-0.9 [facility] Serum [id number] measu rement by electrophoresisOrdered By: Ben Emmanuel on 06-01-2023 Alpha 1 globulin Elph [Mass/Vol] 0.3 g/dL 0.0-0.4 [facility] Alpha 1 globulin Elph [Mass/Vol] 0.8 g/dL 0.4-1.0 [facility] Serum classic neutrophil cyt oplasmic antibody assay (units/volume)Ordered By: Ben Emmanuel on 06-01-2023 Neutrophil cytoplasmic Ab.classic Qn (S) <1:20 titer Neg:<1:20 [facility] Serum globulin measurement ( mass/volume)Ordered By: Ben Emmanuel on 06-01-2023 Globulin (S) [Mass/Vol] 3.7 g/dL 2.2-3.9 [facility] Serum or plasma C reactive p rotein measurement (mass/volume)Ordered By: Ben Emmanuel on 06-01-2023 CRP [Mass/Vol] 12.50 mg/L 0.0-3.0 [facility] Comment on above: C-Reactive Protein ( CRP) provides useful information for thediagnosis, therapy and monitoring of inflammatory processesand associated diseases. For the evaluation of Relative Riskfor Cardiovascular Disease, a High Sensitivity CRP (HSCRP)should be ordered. Serum or plasma IgA measurem ent (mass/volume)Ordered By: Ben Emmanuel on 06-01-2023 IgA [Mass/Vol] 378 mg/dL 61-437 [facility] Serum or plasma IgG measurem ent (mass/volume)Ordered By: Ben Emmanuel on 06-01-2023 IgG [Mass/Vol] 1498 mg/dL 603-1613 [facility] Serum or plasma IgM measurem ent (mass/volume)Ordered By: Ben Emmanuel on 06-01-2023 IgM [Mass/Vol] 121 mg/dL 20-172 [facility] Serum or plasma albumin tracy urement (mass/volume)Ordered By: Ben Emmanuel on 06-01-2023 Albumin [Mass/Vol] 3.6 g/dL 2.9-4.[address] [facility] Serum or plasma albumin/glob ulin mass ratioOrdered By: Ben Emmanuel on 06-01-2023 Albumin/Globulin [Mass ratio] 0.8 {ratio} 0.9-2.4 [facility] Serum or plasma beta globuli n measurement by electrophoresis (mass/volume)Ordered By: Ben Emmanuel on 06-01-2023 Beta globulin Elph [Mass/Vol] 1.4 g/dL 0.7-1.3 [facility] Serum or plasma calcium tracy urement (mass/volume)Ordered By: Ben Emmanuel on 06-01-2023 Calcium [Mass/Vol] 9.2 mg/dL 8.5-10.[address] [facility] Serum or plasma creatinine m easurement (mass/volume)Ordered By: Ben Emmanuel on 06-01-2023 Creatinine [Mass/Vol] 1.17 mg/dL 0.70-1.30 [facility] Comment on above: The validity of the calculated GFR & GFRAA in patients over 70 years has not been determined. Clinical correlation is essential. Serum or plasma ferritin cliff surement (mass/volume)Ordered By: Ben Emmanuel on 06-01-2023 Ferritin [Mass/Vol] 145 ng/mL 26-388 [facility] Serum or plasma gamma globul in measurement by electrophoresis (mass/volume)Ordered By: Ben Emmanuel on 06-01-2023 Gamma globulin Elph [Mass/Vol] 1.2 g/dL 0.4-1.8 [facility] Serum or plasma immunoelectr ophoresis interpretation (nominal result)Ordered By: Ben Emmanuel on 06-01-2023 Interpretation IEP [Interp] Comment . [facility] Comment on above: No monoclonality det ected. Serum or plasma urea nitroge n measurement (mass/volume)Ordered By: Ben Emmanuel on 06-01-2023 Urea nitrogen [Mass/Vol] 27 mg/dL 7-18 [facility] Serum perinuclear neutrophil cytoplasmic antibody titer by immunofluorescenceOrdered By: Ben Emmanuel on 06-01-2023 Neutrophil cytoplasmic Ab.perinuclear IF (S) [Titer] <1:20 titer Neg:<1:20 [facility] Comment on above: The presence of posi tive fluorescence exhibiting P-ANCA orC-ANCA patterns alone is not specific for the diagnosis ofWegener's Granulomatosis (WG) or microscopic polyangiitis.Decisions about treatment should not be based solely onANCA IFA results. The [employer] ANCA Group Consensusrecommends follow up testing of positive sera with both OH-3 and MPO-ANCA enzyme immunoassays. As many as 5% serumsamples are positive only by EIA. Ref. AM J Clin [id number];111:507-513. Serum tissue transglutaminas e IgA antibody assay (units/volume)Ordered By: Ben Emmanuel on 06-01-2023 tTG IgA Qn (S) 3 U/mL 0-3 [facility] Comment on above: Negative 0 - 3 Weak Positive 4 - 10 Positive >10 Tissue Transglutaminase (tTG) has been identified as the endomysial antigen. Studies have demonstr- ated that endomysial IgA antibodies have over 99% specificity for gluten sensitive enteropathy. Thin prep Papanicolaou smear with manual screeningOrdered By: Ben Emmanuel on 06-01-2023 Thin prep Papanicolaou smear with manual screening 19 U/L 15-37 [facility] Thin prep Papanicolaou smear with manual screening 7 5-15 [facility] Thin prep Papanicolaou smear with manual screening 1.0 0.7-1.7 [facility] Total protein bloodOrdered B y: Ben Emmanuel on 06-01-2023 Protein [Mass/Vol] 7.3 g/dL 6.0-8.[address] [facility] Basophil percentageOrdered B y: Tony Kay on 05-21-2023 Chloride [Moles/Vol] 104 mmol/L 98-107 [facility] Glucose [Mass/Vol] 112 mg/dL 74-[address] [facility] Comment on above: Fasting Glucose resu lt from 100 to 125 mg/dL suggests IMPAIRED HOMEOSTASIS per A.D.A. criteria. Potassium [Moles/Vol] 4.3 mmol/L 3.5-5.1 [facility] Sodium [Moles/Vol] 137 mmol/L 136-[address] [facility] Laboratory - Chemistry and C hemistry - challengeOrdered By: Tony Kay on 05-21-2023 CO2 [Moles/Vol] 26.0 mmol/L 21.0-32.0 [facility] Cobalamin (Vitamin B12) [Mass/Vol] 1617 pg/mL 211-911 [facility] Urea nitrogen/Creatinine [Mass ratio] 22.0 mg/mg 10-20 [facility] No Panel InformationOrdered By: Tony Kay on 05-21-2023 Vitamin B6 Level 120.1 ug/L 3.4-65.2 [facility] Comment on above: Deficiency: <3.4 Mar ginal: 3.4 - 5.1 Adequate: >5.1 Whole Blood Vitamin B1 Level 127.8 nmol/L 66.5-200.0 [facility] Comment on above: Performed at: [address] [id number] Director: Carlos Sim MD, Phone: [phone] Estimated GFR (MDRD) Amer 79 mL/min >60 [facility] Comment on above: GFR Calc Estimated GFR (MDRD) Non-Af Amer 65 mL/min >60 [facility] Comment on above: Non- GFR Calc No Panel InformationOrdered By: Rodney Salvador on 05-21-2023 Vitamin D 25-Hydroxy 77.8 ng/mL [facility] Comment on above: Vitamin D 25(OH) Sta tus Range Deficiency <20 ng/mL (50nmol/L) Insufficiency 20 - 30 ng/mL (50 - 75 nmol/L) Sufficiency 30 - 100 ng/mL (75 - 250 nmol/L) Toxicity >100 ng/mL (>250 nmol/L) Serum or plasma calcium tracy urement (mass/volume)Ordered By: Tony Kay on 05-21-2023 Calcium [Mass/Vol] 9.2 mg/dL 8.5-10.[address] [facility] Serum or plasma creatinine m easurement (mass/volume)Ordered By: Tony Kay on 05-21-2023 Creatinine [Mass/Vol] 1.18 mg/dL 0.70-1.30 [facility] Comment on above: The validity of the calculated GFR & GFRAA in patients over 70 years has not been determined. Clinical correlation is essential. Serum or plasma ferritin cliff surement (mass/volume)Ordered By: Rodney Salvador on 05-21-2023 Ferritin [Mass/Vol] 180 ng/mL 26-388 [facility] Serum or plasma folate measu rement (mass/volume)Ordered By: Tony Kay on 05-21-2023 Folate [Mass/Vol] 16.10 ng/mL 3.1-55.[address] [facility] Serum or plasma urea nitroge n measurement (mass/volume)Ordered By: Tony Kay on 05-21-2023 Urea nitrogen [Mass/Vol] 26 mg/dL 7-18 [facility] Thin prep Papanicolaou smear with manual screeningOrdered By: Tony Kay on 05-21-2023 Thin prep Papanicolaou smear with manual screening 7 5-15 [facility] Basophil percentageOrdered B y: Tony Kay on 05-10-2023 Chloride [Moles/Vol] 104 mmol/L 98-107 [facility] Glucose [Mass/Vol] 113 mg/dL 74-[address] [facility] Comment on above: Fasting Glucose resu lt from 100 to 125 mg/dL suggests IMPAIRED HOMEOSTASIS per A.D.A. criteria. Potassium [Moles/Vol] 4.1 mmol/L 3.5-5.1 [facility] Sodium [Moles/Vol] 136 mmol/L 136-[address] [facility] Laboratory - Chemistry and C hemistry - challengeOrdered By: Tony Kay on 05-10-2023 CO2 [Moles/Vol] 26.0 mmol/L 21.0-32.0 [facility] Urea nitrogen/Creatinine [Mass ratio] 19.8 mg/mg 10-20 [facility] No Panel InformationOrdered By: Tony Kay on 05-10-2023 Estimated GFR (MDRD) Amer 70 mL/min >60 [facility] Comment on above: GFR Calc Estimated GFR (MDRD) Non-Af Amer 58 mL/min >60 [facility] Comment on above: Non- GFR Calc Serum or plasma calcium tracy urement (mass/volume)Ordered By: Tony Kay on 05-10-2023 Calcium [Mass/Vol] 9.2 mg/dL 8.5-10.[address] [facility] Serum or plasma creatinine m easurement (mass/volume)Ordered By: Tony Kay on 05-10-2023 Creatinine [Mass/Vol] 1.31 mg/dL 0.70-1.30 [facility] Comment on above: The validity of the calculated GFR & GFRAA in patients over 70 years has not been determined. Clinical correlation is essential. Serum or plasma urea nitroge n measurement (mass/volume)Ordered By: Tony Kay on 05-10-2023 Urea nitrogen [Mass/Vol] 26 mg/dL 7-18 [facility] Thin prep Papanicolaou smear with manual screeningOrdered By: Tony Kay on 05-10-2023 Thin prep Papanicolaou smear with manual screening 6 5-15 [facility] Basophil percentageOrdered B y: Tony Kya on 04-30-2023 Chloride [Moles/Vol] 104 mmol/L 98-107 [facility] Glucose [Mass/Vol] 107 mg/dL 74-[address] [facility] Comment on above: Fasting Glucose resu lt from 100 to 125 mg/dL suggests IMPAIRED HOMEOSTASIS per A.D.A. criteria. Potassium [Moles/Vol] 3.9 mmol/L 3.5-5.1 [facility] Sodium [Moles/Vol] 137 mmol/L 136-[address] [facility] Laboratory - Chemistry and C hemistry - challengeOrdered By: Tony Kay on 04-30-2023 CO2 [Moles/Vol] 27.0 mmol/L 21.0-32.0 [facility] Magnesium [Mass/Vol] 2.7 mg/dL 1.6-2.6 [facility] Urea nitrogen/Creatinine [Mass ratio] 21.1 mg/mg 10-20 [facility] No Panel InformationOrdered By: Tony Kay on 04-30-2023 Estimated GFR (MDRD) Amer 87 mL/min >60 [facility] Comment on above: GFR Calc Estimated GFR (MDRD) Non-Af Amer 72 mL/min >60 [facility] Comment on above: Non- GFR Calc Serum or plasma calcium tracy urement (mass/volume)Ordered By: Tony Kay on 04-30-2023 Calcium [Mass/Vol] 9.1 mg/dL 8.5-10.[address] [facility] Serum or plasma creatinine m easurement (mass/volume)Ordered By: Tony Kay on 04-30-2023 Creatinine [Mass/Vol] 1.09 mg/dL 0.70-1.30 [facility] Comment on above: The validity of the calculated GFR & GFRAA in patients over 70 years has not been determined. Clinical correlation is essential. Serum or plasma urea nitroge n measurement (mass/volume)Ordered By: Tony Kay on 04-30-2023 Urea nitrogen [Mass/Vol] 23 mg/dL 7-18 [facility] Thin prep Papanicolaou smear with manual screeningOrdered By: Tony Kay on 04-30-2023 Thin prep Papanicolaou smear with manual screening 6 5-15 [facility] Basophil percentageOrdered B y: Tony Kay on 04-25-2023 Chloride [Moles/Vol] 98 mmol/L 98-107 [facility] Glucose [Mass/Vol] 118 mg/dL 74-[address] [facility] Comment on above: Fasting Glucose resu lt from 100 to 125 mg/dL suggests IMPAIRED HOMEOSTASIS per A.D.A. criteria. Potassium [Moles/Vol] 3.3 mmol/L 3.5-5.1 [facility] Sodium [Moles/Vol] 136 mmol/L 136-[address] [facility] Laboratory - Chemistry and C hemistry - challengeOrdered By: Tony Kay on 04-25-2023 CO2 [Moles/Vol] 32.0 mmol/L 21.0-32.0 [facility] Magnesium [Mass/Vol] 2.6 mg/dL 1.6-2.6 [facility] Urea nitrogen/Creatinine [Mass ratio] 20.2 mg/mg 10-20 [facility] No Panel InformationOrdered By: Tony Kay on 04-25-2023 Estimated GFR (MDRD) Amer 78 mL/min >60 [facility] Comment on above: GFR Calc Estimated GFR (MDRD) Non-Af Amer 65 mL/min >60 [facility] Comment on above: Non- GFR Calc Serum or plasma calcium tracy urement (mass/volume)Ordered By: Tony Kay on 04-25-2023 Calcium [Mass/Vol] 9.4 mg/dL 8.5-10.[address] [facility] Serum or plasma creatinine m easurement (mass/volume)Ordered By: Tony Kay on 04-25-2023 Creatinine [Mass/Vol] 1.19 mg/dL 0.70-1.30 [facility] Comment on above: The validity of the calculated GFR & GFRAA in patients over 70 years has not been determined. Clinical correlation is essential. Serum or plasma urea nitroge n measurement (mass/volume)Ordered By: Tony Kay on 04-25-2023 Urea nitrogen [Mass/Vol] 24 mg/dL 7-18 [facility] Thin prep Papanicolaou smear with manual screeningOrdered By: Tony Kay on 04-25-2023 Thin prep Papanicolaou smear with manual screening 6 5-15 [facility] Basophil percentageOrdered B y: Tony Kay on 04-12-2023 Chloride [Moles/Vol] 102 mmol/L 98-107 [facility] Glucose [Mass/Vol] 109 mg/dL 74-[address] [facility] Comment on above: Fasting Glucose resu lt from 100 to 125 mg/dL suggests IMPAIRED HOMEOSTASIS per A.D.A. criteria. Potassium [Moles/Vol] 3.7 mmol/L 3.5-5.1 [facility] Sodium [Moles/Vol] 138 mmol/L 136-[address] [facility] Laboratory - Chemistry and C hemistry - challengeOrdered By: Tony Kay on 04-12-2023 CO2 [Moles/Vol] 31.0 mmol/L 21.0-32.0 [facility] Urea nitrogen/Creatinine [Mass ratio] 20.8 mg/mg 10-20 [facility] No Panel InformationOrdered By: Tony Kay on 04-12-2023 Estimated GFR (MDRD) Amer 74 mL/min >60 [facility] Comment on above: GFR Calc Estimated GFR (MDRD) Non-Af Amer 61 mL/min >60 [facility] Comment on above: Non- GFR Calc Serum or plasma calcium tracy urement (mass/volume)Ordered By: Tony Kay on 04-12-2023 Calcium [Mass/Vol] 9.5 mg/dL 8.5-10.[address] [facility] Serum or plasma creatinine m easurement (mass/volume)Ordered By: Tony Kay on 04-12-2023 Creatinine [Mass/Vol] 1.25 mg/dL 0.70-1.30 [facility] Comment on above: The validity of the calculated GFR & GFRAA in patients over 70 years has not been determined. Clinical correlation is essential. Serum or plasma urea nitroge n measurement (mass/volume)Ordered By: Tony Kay on 04-12-2023 Urea nitrogen [Mass/Vol] 26 mg/dL 7-18 [facility] Thin prep Papanicolaou smear with manual screeningOrdered By: Tony Kay on 04-12-2023 Thin prep Papanicolaou smear with manual screening 5 5-15 [facility] Basophil percentageOrdered B y: Tony Kay on 04-06-2023 Chloride [Moles/Vol] 109 mmol/L 98-107 [facility] Glucose [Mass/Vol] 107 mg/dL 74-[address] [facility] Comment on above: Fasting Glucose resu lt from 100 to 125 mg/dL suggests IMPAIRED HOMEOSTASIS per A.D.A. criteria. Potassium [Moles/Vol] 4.6 mmol/L 3.5-5.1 [facility] Sodium [Moles/Vol] 139 mmol/L 136-[address] [facility] Laboratory - Chemistry and C hemistry - challengeOrdered By: Tony Kay on 04-06-2023 CO2 [Moles/Vol] 27.0 mmol/L 21.0-32.0 [facility] Urea nitrogen/Creatinine [Mass ratio] 22.0 mg/mg 10-20 [facility] No Panel InformationOrdered By: Tony Kay on 04-06-2023 Estimated GFR (MDRD) Amer 75 mL/min >60 [facility] Comment on above: GFR Calc Estimated GFR (MDRD) Non-Af Amer 62 mL/min >60 [facility] Comment on above: Non- GFR Calc Serum or plasma C reactive p rotein measurement (mass/volume)Ordered By: Tony Kay on 04-06-2023 CRP [Mass/Vol] 10.30 mg/L 0.0-3.0 [facility] Comment on above: C-Reactive Protein ( CRP) provides useful information for thediagnosis, therapy and monitoring of inflammatory processesand associated diseases. For the evaluation of Relative Riskfor Cardiovascular Disease, a High Sensitivity CRP (HSCRP)should be ordered. Serum or plasma calcium tracy urement (mass/volume)Ordered By: Tony Kay on 04-06-2023 Calcium [Mass/Vol] 9.8 mg/dL 8.5-10.[address] [facility] Serum or plasma creatinine m easurement (mass/volume)Ordered By: Tony Kay on 04-06-2023 Creatinine [Mass/Vol] 1.23 mg/dL 0.70-1.30 [facility] Comment on above: The validity of the calculated GFR & GFRAA in patients over 70 years has not been determined. Clinical correlation is essential. Serum or plasma urea nitroge n measurement (mass/volume)Ordered By: Tony Kay on 04-06-2023 Urea nitrogen [Mass/Vol] 27 mg/dL 7-18 [facility] Thin prep Papanicolaou smear with manual screeningOrdered By: Tony Kay on 04-06-2023 Thin prep Papanicolaou smear with manual screening 3 5-15 [facility] Basophil percentageOrdered B y: Tony Kay on 03-30-2023 Chloride [Moles/Vol] 103 mmol/L 98-107 [facility] Glucose [Mass/Vol] 143 mg/dL 74-[address] [facility] Comment on above: Fasting Glucose resu lt greater than or equal to 126 mg/dL suggests DIABETES MELLITUS per A.D.A. criteria. Potassium [Moles/Vol] 3.6 mmol/L 3.5-5.1 [facility] Comment on above: Slight Hemolysis, Re sult may be falsely increased. Sodium [Moles/Vol] 138 mmol/L 136-[address] [facility] Laboratory - Chemistry and C hemistry - challengeOrdered By: Tony Kay on 03-30-2023 CO2 [Moles/Vol] 26.0 mmol/L 21.0-32.0 [facility] Urea nitrogen/Creatinine [Mass ratio] 22.1 mg/mg - [facility] No Panel InformationOrdered By: Tony Kay on 03-30-2023 Estimated GFR (MDRD) Amer 67 mL/min >60 [facility] Comment on above: GFR Calc Estimated GFR (MDRD) Non-Af Amer 56 mL/min >60 [facility] Comment on above: Non- GFR Calc Serum or plasma calcium tracy urement (mass/volume)Ordered By: Tony Kay on 03-30-2023 Calcium [Mass/Vol] 9.2 mg/dL 8.5-10.[address] [facility] Serum or plasma creatinine m easurement (mass/volume)Ordered By: Tony Kay on 03-30-2023 Creatinine [Mass/Vol] 1.36 mg/dL 0.70-1.30 [facility] Comment on above: The validity of the calculated GFR & GFRAA in patients over 70 years has not been determined. Clinical correlation is essential. Serum or plasma urea nitroge n measurement (mass/volume)Ordered By: Tony Kay on 03-30-2023 Urea nitrogen [Mass/Vol] 30 mg/dL 7-18 [facility] Thin prep Papanicolaou smear with manual screeningOrdered By: Tony Kay on 03-30-2023 Thin prep Papanicolaou smear with manual screening 9 5-15 [facility] Basophil percentageOrdered B y: Dr. Kay on 03-23-2023 Chloride [Moles/Vol] 101 mmol/L 98-107 [facility] Glucose [Mass/Vol] 109 mg/dL 74-[address] [facility] Comment on above: Fasting Glucose resu lt from 100 to 125 mg/dL suggests IMPAIRED HOMEOSTASIS per A.D.A. criteria. Potassium [Moles/Vol] 3.6 mmol/L 3.5-5.1 [facility] Sodium [Moles/Vol] 139 mmol/L 136-[address] [facility] Laboratory - Chemistry and C hemistry - challengeOrdered By: Dr. Kay on 03-23-2023 CO2 [Moles/Vol] 27.0 mmol/L 21.0-32.0 [facility] Urea nitrogen/Creatinine [Mass ratio] 23.5 mg/mg 07-27 [facility] No Panel InformationOrdered By: Dr. Kay on 03-23-2023 Estimated GFR (MDRD) Amer 78 mL/min >60 [facility] Comment on above: GFR Calc Estimated GFR (MDRD) Non-Af Amer 65 mL/min >60 [facility] Comment on above: Non- GFR Calc Serum or plasma calcium tracy urement (mass/volume)Ordered By: Dr. Kay on 03-23-2023 Calcium [Mass/Vol] 9.3 mg/dL 8.5-10.[address] [facility] Serum or plasma creatinine m easurement (mass/volume)Ordered By: Dr. Kay on 03-23-2023 Creatinine [Mass/Vol] 1.19 mg/dL 0.70-1.30 [facility] Comment on above: The validity of the calculated GFR & GFRAA in patients over 70 years has not been determined. Clinical correlation is essential. Serum or plasma urea nitroge n measurement (mass/volume)Ordered By: Dr. Kay on 03-23-2023 Urea nitrogen [Mass/Vol] 28 mg/dL 7-18 [facility] Thin prep Papanicolaou smear with manual screeningOrdered By: Dr. Kay on 03-23-2023 Thin prep Papanicolaou smear with manual screening 11 5-15 [facility] Basophil percentageOrdered B y: Dr. Kay on 03-12-2023 Chloride [Moles/Vol] 99 mmol/L 98-107 [facility] Glucose [Mass/Vol] 126 mg/dL 74-[address] [facility] Comment on above: Fasting Glucose resu lt greater than or equal to 126 mg/dL suggests DIABETES MELLITUS per A.D.A. criteria. Potassium [Moles/Vol] 3.0 mmol/L 3.5-5.1 [facility] Sodium [Moles/Vol] 134 mmol/L 136-[address] [facility] Laboratory - Chemistry and C hemistry - challengeOrdered By: Dr. Kay on 03-12-2023 CO2 [Moles/Vol] 34.0 mmol/L 21.0-32.0 [facility] Urea nitrogen/Creatinine [Mass ratio] 21.9 mg/mg 10-20 [facility] No Panel InformationOrdered By: Dr. Kay on 03-12-2023 Estimated GFR (MDRD) Amer 72 mL/min >60 [facility] Comment on above: GFR Calc Estimated GFR (MDRD) Non-Af Amer 60 mL/min >60 [facility] Comment on above: Non- GFR Calc Serum or plasma calcium tracy urement (mass/volume)Ordered By: Dr. Kay on 03-12-2023 Calcium [Mass/Vol] 9.5 mg/dL 8.5-10.[address] [facility] Serum or plasma creatinine m easurement (mass/volume)Ordered By: Dr. Kay on 03-12-2023 Creatinine [Mass/Vol] 1.28 mg/dL 0.70-1.30 [facility] Comment on above: The validity of the calculated GFR & GFRAA in patients over 70 years has not been determined. Clinical correlation is essential. Serum or plasma urea nitroge n measurement (mass/volume)Ordered By: Dr. Kay on 03-12-2023 Urea nitrogen [Mass/Vol] 28 mg/dL 7-18 [facility] Thin prep Papanicolaou smear with manual screeningOrdered By: Dr. Kay on 03-12-2023 Thin prep Papanicolaou smear with manual screening 1 5-15 [facility] Basophil percentageOrdered B y: Dr. Kay on 03-06-2023 Chloride [Moles/Vol] 94 mmol/L 98-107 [facility] Glucose [Mass/Vol] 147 mg/dL 74-[address] [facility] Comment on above: Fasting Glucose resu lt greater than or equal to 126 mg/dL suggests DIABETES MELLITUS per A.D.A. criteria. Potassium [Moles/Vol] 2.9 mmol/L 3.5-5.1 [facility] Comment on above: Slight Hemolysis, Re sult may be falsely increased. Sodium [Moles/Vol] 136 mmol/L 136-[address] [facility] Laboratory - Chemistry and C hemistry - challengeOrdered By: Dr. Kay on 03-06-2023 CO2 [Moles/Vol] 33.0 mmol/L 21.0-32.0 [facility] Urea nitrogen/Creatinine [Mass ratio] 21.6 mg/mg 10-20 [facility] No Panel InformationOrdered By: Dr. Kay on 03-06-2023 Estimated GFR (MDRD) Amer 59 mL/min >60 [facility] Comment on above: GFR Calc Estimated GFR (MDRD) Non-Af Amer 49 mL/min >60 [facility] Comment on above: Non- GFR Calc Serum or plasma calcium tracy urement (mass/volume)Ordered By: Dr. Kay on 03-06-2023 Calcium [Mass/Vol] 10.0 mg/dL 8.5-10.[address] [facility] Serum or plasma creatinine m easurement (mass/volume)Ordered By: Dr. Kay on 03-06-2023 Creatinine [Mass/Vol] 1.53 mg/dL 0.70-1.30 [facility] Comment on above: The validity of the calculated GFR & GFRAA in patients over 70 years has not been determined. Clinical correlation is essential. Serum or plasma urea nitroge n measurement (mass/volume)Ordered By: Dr. Kay on 03-06-2023 Urea nitrogen [Mass/Vol] 33 mg/dL 7-18 [facility] Thin prep Papanicolaou smear with manual screeningOrdered By: Dr. Kay on 03-06-2023 Thin prep Papanicolaou smear with manual screening 9 5-15 [facility] Basophil percentageOrdered B y: Dr. Kay on 02-23-2023 Bilirubin [Mass/Vol] 0.40 mg/dL 0.20-1.00 [facility] Comment on above: For patients on eltr ombopag therapy, use of Dimension [place] TBIL is not recommended. Chloride [Moles/Vol] 98 mmol/L 98-107 [facility] Glucose [Mass/Vol] 129 mg/dL 74-[address] [facility] Comment on above: Fasting Glucose resu lt greater than or equal to 126 mg/dL suggests DIABETES MELLITUS per A.D.A. criteria. Potassium [Moles/Vol] 2.9 mmol/L 3.5-5.1 [facility] Protein [Mass/Vol] 8.2 g/dL 6.4-8.[address] [facility] Sodium [Moles/Vol] 138 mmol/L 136-[address] [facility] Laboratory - Chemistry and C hemistry - challengeOrdered By: Dr. Kay on 02-23-2023 ALP [Catalytic activity/Vol] 81 U/L 45-117 [facility] ALT [Catalytic activity/Vol] 45 U/L 16-61 [facility] CO2 [Moles/Vol] 34.0 mmol/L 21.0-32.0 [facility] Globulin (S) [Mass/Vol] 4.8 g/dL 2.2-4.2 [facility] Magnesium [Mass/Vol] 2.2 mg/dL 1.6-2.6 [facility] Urea nitrogen/Creatinine [Mass ratio] 23.0 mg/mg 10-20 [facility] No Panel InformationOrdered By: Dr. Kay on 02-23-2023 Estimated GFR (MDRD) Amer 73 mL/min >60 [facility] Comment on above: GFR Calc Estimated GFR (MDRD) Non-Af Amer 61 mL/min >60 [facility] Comment on above: Non- GFR Calc Serum or plasma albumin tracy urement (mass/volume)Ordered By: Dr. Kay on 02-23-2023 Albumin [Mass/Vol] 3.4 g/dL 3.2-5.[address] [facility] Serum or plasma albumin/glob ulin mass ratioOrdered By: Dr. Kay on 02-23-2023 Albumin/Globulin [Mass ratio] 0.7 {ratio} 0.9-2.4 [facility] Serum or plasma calcium tracy urement (mass/volume)Ordered By: Dr. Kay on 02-23-2023 Calcium [Mass/Vol] 9.7 mg/dL 8.5-10.[address] [facility] Serum or plasma creatinine m easurement (mass/volume)Ordered By: Dr. Kay on 02-23-2023 Creatinine [Mass/Vol] 1.26 mg/dL 0.70-1.30 [facility] Comment on above: The validity of the calculated GFR & GFRAA in patients over 70 years has not been determined. Clinical correlation is essential. Serum or plasma urea nitroge n measurement (mass/volume)Ordered By: Dr. Kay on 02-23-2023 Urea nitrogen [Mass/Vol] 29 mg/dL 7-18 [facility] Thin prep Papanicolaou smear with manual screeningOrdered By: Dr. Kay on 02-23-2023 Thin prep Papanicolaou smear with manual screening 28 U/L 15-37 [facility] Thin prep Papanicolaou smear with manual screening 6 5-15 [facility] Thin prep Papanicolaou smear with manual screening 298 mOsm/KG 280-301 [facility] Basophil percentageOrdered B y: Dr. Kay on 02-07-2023 Bilirubin [Mass/Vol] 0.40 mg/dL 0.20-1.00 [facility] Comment on above: For patients on eltr ombopag therapy, use of Dimension [place] TBIL is not recommended. Chloride [Moles/Vol] 108 mmol/L 98-107 [facility] Glucose [Mass/Vol] 101 mg/dL 74-[address] [facility] Comment on above: Fasting Glucose resu lt from 100 to 125 mg/dL suggests IMPAIRED HOMEOSTASIS per A.D.A. criteria. Potassium [Moles/Vol] 3.9 mmol/L 3.5-5.1 [facility] Protein [Mass/Vol] 7.7 g/dL 6.4-8.[address] [facility] Sodium [Moles/Vol] 141 mmol/L 136-[address] [facility] Laboratory - Chemistry and C hemistry - challengeOrdered By: Dr. Kay on 02-07-2023 ALP [Catalytic activity/Vol] 81 U/L 45-117 [facility] ALT [Catalytic activity/Vol] 43 U/L 16-61 [facility] CO2 [Moles/Vol] 27.0 mmol/L 21.0-32.0 [facility] Globulin (S) [Mass/Vol] 4.5 g/dL 2.2-4.2 [facility] Magnesium [Mass/Vol] 2.4 mg/dL 1.6-2.6 [facility] Urea nitrogen/Creatinine [Mass ratio] 19.8 mg/mg 10-20 [facility] No Panel InformationOrdered By: Dr. Kay on 02-07-2023 Estimated GFR (MDRD) Amer 81 mL/min >60 [facility] Comment on above: GFR Calc Estimated GFR (MDRD) Non-Af Amer 67 mL/min >60 [facility] Comment on above: Non- GFR Calc Serum or plasma C reactive p rotein measurement (mass/volume)Ordered By: Dr. Kay on 02-07-2023 CRP [Mass/Vol] 9.13 mg/L 0.0-3.0 [facility] Comment on above: C-Reactive Protein ( CRP) provides useful information for thediagnosis, therapy and monitoring of inflammatory processesand associated diseases. For the evaluation of Relative Riskfor Cardiovascular Disease, a High Sensitivity CRP (HSCRP)should be ordered. Serum or plasma albumin tracy urement (mass/volume)Ordered By: Dr. Kay on 02-07-2023 Albumin [Mass/Vol] 3.2 g/dL 3.2-5.[address] [facility] Serum or plasma albumin/glob ulin mass ratioOrdered By: Dr. Kay on 02-07-2023 Albumin/Globulin [Mass ratio] 0.7 {ratio} 0.9-2.4 [facility] Serum or plasma calcium tracy urement (mass/volume)Ordered By: Dr. Kay on 02-07-2023 Calcium [Mass/Vol] 9.2 mg/dL 8.5-10.[address] [facility] Serum or plasma creatinine m easurement (mass/volume)Ordered By: Dr. Kay on 02-07-2023 Creatinine [Mass/Vol] 1.16 mg/dL 0.70-1.30 [facility] Comment on above: The validity of the calculated GFR & GFRAA in patients over 70 years has not been determined. Clinical correlation is essential. Serum or plasma urea nitroge n measurement (mass/volume)Ordered By: Dr. Kay on 02-07-2023 Urea nitrogen [Mass/Vol] 23 mg/dL 7-18 [facility] Thin prep Papanicolaou smear with manual screeningOrdered By: Dr. Kay on 02-07-2023 Thin prep Papanicolaou smear with manual screening 22 U/L 15-37 [facility] Thin prep Papanicolaou smear with manual screening 6 5-15 [facility] Office [facility] 05-24-2017 Documentation of current medications (procedure) Done Invalid Interpretation Code [facility] [email or web address] Work Phone: Fall risk assessment No [facility] [email or web address] Work Phone: Protein mass conc Done [facility] [email or web address] Work Phone: Tobacco smoking status NHIS Never [facility] [employer] Work Phone: Tobacco smoking status NHIS Never smoker [facility] [employer] Work Phone: Tobacco use [facility] Never smoker Invalid Interpretation Code [facility] [employer] Work Phone: Office Visiton 11-08-2011 Colonoscopy (procedure) Colonoscopy (procedure) Invalid Interpretation Code [facility] [employer] Work Phone: Protein mass conc Colonoscopy (procedure) [facility] [employer] Work Phone: No Panel Information [facility] Vital Signs Date Time Vital Sign Value Performing Clinician Facility 02-17-2025 15:58-0400 Body mass index (BMI) [Ratio] 40.67 kg/m2 [facility] MD Work Phone: [facility] 02-17-2025 15:58-0400 Body weight 114.31 kg Milton Villanueva MD Work Phone: [facility] 02-17-2025 15:58-0400 Diastolic blood pressure 70 mm[Hg] Milton Villanueva MD Work Phone: [facility] 02-17-2025 15:58-0400 Heart rate 77 /min Milton Villanueva MD Work Phone: [facility] 02-17-2025 15:58-0400 SaO2% (BldA) [Mass fraction] 98 % Milton Villanueva MD Work Phone: [facility] 02-17-2025 15:58-0400 Systolic blood pressure 122 mm[Hg] Milton Villanueva MD Work Phone: [facility] 01-06-2025 10:57-0400 Diastolic blood pressure 83 mm[Hg] Drew Drea DO Work Phone: [facility] 01-06-2025 10:57-0400 Heart rate 79 /min Drew Drea DO Work Phone: [facility] 01-06-2025 10:57-0400 Systolic blood pressure 153 mm[Hg] Drew Drea DO Work Phone: [facility] 11-28-2024 13:40-0500 Body mass index (BMI) [Ratio] 40.93 kg/m2 Milton Villanueva MD Work Phone: [facility] 11-28-2024 13:40-0500 Body weight 115.03 kg Milton Villanueva MD Work Phone: [facility] 11-28-2024 13:40-0500 Diastolic blood pressure 81 mm[Hg] Milton Villanueva MD Work Phone: [facility] 11-28-2024 13:40-0500 Heart rate 78 /min Milton Villnaueva MD Work Phone: [facility] 11-28-2024 13:40-0500 SaO2% (BldA) [Mass fraction] 97 % Milton Villanueva MD Work Phone: [facility] 11-28-2024 13:40-0500 Systolic blood pressure 138 mm[Hg] Milton Villanueva MD Work Phone: [facility] 08-28-2023 14:14-0500 Body height 167.[address] Tony Kay Work Phone: [facility] 08-28-2023 14:14-0500 Body mass index (BMI) [Ratio] 40 kg/m2 Dr. Tony Kay Work Phone: [facility] 08-28-2023 14:14-0500 Body temperature 97.2 [degF] Dr. Tony Kay Work Phone: [facility] 08-28-2023 14:14-0500 Body weight 112.[address] Tony Kay Work Phone: [facility] 08-28-2023 14:14-0500 Diastolic blood pressure 75 mm[Hg] Dr. Tony Kay Work Phone: [facility] 08-28-2023 14:14-0500 Heart rate 62 /min Dr. Tony Kay Work Phone: 8(245)583-928993 [place] [address] 08-28-2023 14:14-0500 Respiratory rate 16 /min Dr. Tony Kay Work Phone: [facility] 08-28-2023 14:14-0500 SaO2% (BldA) [Mass fraction] 97 % Dr. Tony Kay Work Phone: [facility] 08-28-2023 14:14-0500 Systolic blood pressure 132 mm[Hg] Dr. Tony Kay Work Phone: 8(676)743-665835 [address] 07-31-2023 13:20-0400 Body height 167.[address] Tony Kay Work Phone: 1(761)344-891314 [place] [address] 07-31-2023 13:20-0400 Body mass index (BMI) [Ratio] 39.5 kg/m2 Dr. Tony Kay Work Phone: 7(987)221-278614 [place] [address] 07-31-2023 13:20-0400 Body temperature 97.8 [degF] Dr. Tony Kay Work Phone: 7(163)394-435493 [place] [address] 07-31-2023 13:20-0400 Body weight 111.[address] Tony Kay Work Phone: 3(937)810-205614 [place] [address] 07-31-2023 13:20-0400 Diastolic blood pressure 86 mm[Hg] Dr. Tony Kay Work Phone: 1(079)735-850114 [place] [address] 07-31-2023 13:20-0400 Heart rate 67 /min Dr. Tony Kay Work Phone: 7(200)472-565793 [place] [address] 07-31-2023 13:20-0400 Respiratory rate 16 /min Dr. Tony Kay Work Phone: [facility] 07-31-2023 13:20-0400 SaO2% (BldA) [Mass fraction] 92 % Dr. Tony Kay Work Phone: [facility] 07-31-2023 13:20-0400 Systolic blood pressure 137 mm[Hg] Dr. Tony Kay Work Phone: 4(229)578-103393 [place] [address] 07-20-2023 14:41-0400 Diastolic blood pressure 79 mm[Hg] Dr. Tony Kay Work Phone: [facility] 07-20-2023 14:41-0400 Systolic blood pressure 124 mm[Hg] Dr. Tony Kay Work Phone: 8(835)514-668314 [place] [address] 07-20-2023 13:09-0400 Body mass index (BMI) [Ratio] 39.2 kg/m2 Dr. Tony Kay Work Phone: 9(100)606-122493 [place] [address] 07-20-2023 13:09-0400 Body temperature 97 [degF] Dr. Tony Kay Work Phone: 5(762)525-645414 [place] [address] 07-20-2023 13:09-0400 Body weight 110.[address] Tony Kay Work Phone: 4(290)894-661914 [place] [address] 07-20-2023 13:09-0400 Heart rate 82 /min Dr. Tony Kay Work Phone: 0(981)371-009893 [place] [address] 07-20-2023 13:09-0400 Respiratory rate 17 /min Dr. Tony Kay Work Phone: 5(989)811-391535 [address] 07-20-2023 13:09-0400 SaO2% (BldA) [Mass fraction] 95 % Dr. Tony Kay Work Phone: 7(892)750-368093 [place] [address] 05-30-2023 16:03-0400 Body height 167.[address] Tony Kay Work Phone: 1(661)342-529593 [place] [address] 05-30-2023 16:03-0400 Body mass index (BMI) [Ratio] 39.7 kg/m2 Dr. Tony Kay Work Phone: [facility] 05-30-2023 16:03-0400 Body temperature 98.1 [degF] Dr. Tony Kay Work Phone: 5(270)987-970235 [address] 05-30-2023 16:03-0400 Body weight 111.[address] Tony Kay Work Phone: 5(066)068-846493 [place] [address] 05-30-2023 16:03-0400 Diastolic blood pressure 75 mm[Hg] Dr. Tony Kay Work Phone: [facility] 05-30-2023 16:03-0400 Heart rate 66 /min Dr. Tony Kay Work Phone: [facility] 05-30-2023 16:03-0400 Respiratory rate 16 /min Dr. Tony Kay Work Phone: [facility] 05-30-2023 16:03-0400 SaO2% (BldA) [Mass fraction] 97 % Dr. Tony Kay Work Phone: [facility] 05-30-2023 16:03-0400 Systolic blood pressure 121 mm[Hg] Dr. Tony Kay Work Phone: [facility] 05-29-2023 13:28-0400 Body mass index (BMI) [Ratio] 42.9 kg/m2 Dr. Tony Kay Work Phone: [facility] 05-29-2023 13:28-0400 Body temperature 97.5 [degF] Dr. Tony Kay Work Phone: [facility] 05-29-2023 13:28-0400 Body weight 111.[address] Tony Kay Work Phone: [facility] 05-29-2023 13:28-0400 Diastolic blood pressure 76 mm[Hg] Dr. Tony Kay Work Phone: [facility] 05-29-2023 13:28-0400 Heart rate 65 /min Dr. Tony Kay Work Phone: [facility] 05-29-2023 13:28-0400 Respiratory rate 16 /min Dr. Tony Kay Work Phone: [facility] 05-29-2023 13:28-0400 SaO2% (BldA) [Mass fraction] 93 % Dr. Tony Kay Work Phone: [facility] 05-29-2023 13:28-0400 Systolic blood pressure 116 mm[Hg] Dr. Tony Kay Work Phone: [facility] 05-24-2017 08:09-0400 BMI (Body Mass Index) 36.38 kg/m2 [facility] Work Phone: 05-24-2017 08:09-0400 Body Temperature 97.6 [degF] [facility] Work Phone: 05-24-2017 08:09-0400 Body Temperature 97.59 [degF] [facility] Work Phone: 05-24-2017 08:09-0400 BP Diastolic 84 mm[Hg] [facility] Work Phone: 05-24-2017 08:09-0400 BP Systolic 136 mm[Hg] [facility] Work Phone: 05-24-2017 08:09-0400 Height 167.64 cm [facility] Work Phone: 05-24-2017 08:09-0400 Pulse (Heart Rate) 64 /min [facility] Work Phone: 05-24-2017 08:09-0400 Respiratory Rate 18 /min [facility] Work Phone: 05-24-2017 08:09-0400 Weight 102.24 kg [facility] Work Phone: Encounters Encounter Date Encounter Type Care Provider Facility Start: 03-30-2025 ambulatory Tony Kay Facility:[facility] Start: 03-13-[address] Tony Kay MD -Laboratory Work Phone: Start: 03-10-2025 End: 03-10-[address] Tony Kay MD Work Phone: [facility] Work Phone: Start: 03-10-2025 End: 03-10-[address] Tony Kay MD -Laboratory [facility] Start: 03-10-2025 End: 03-10-2025 ambulatory Tony Kay Facility:[facility] Start: 03-06-2025 End: 03-06-2025 ambulatory MILTON VILLANUEVA Facility:[facility] Start: 02-26-2025 End: 02-26-[address] Tony Kay MD Work Phone: [facility] Work Phone: Start: 02-26-2025 End: 02-26-[address] Tony Kay MD -Laboratory Work Phone: Start: 02-26-2025 End: 02-26-2025 ambulatory [facility] Facility:[facility] Start: 02-23-2025 End: 02-23-[address] Tony Kay MD Work Phone: [facility] Work Phone: Start: 02-23-2025 End: 02-23-[address] Tony Kay MD -Laboratory [facility] Start: 02-23-2025 End: 02-23-2025 ambulatory [facility] Facility:[facility] Start: 02-17-2025 End: 02-17-2025 Patient encounter procedure Milton Villanueva MD Work Phone: Endocrinology Comment on above: Hypertension, unspec ified type (Primary Dx) Start: 02-17-2025 End: 02-17-2025 ambulatory MILTONJorge VILLANUEVA Facility:[facility] Start: 02-12-2025 End: 02-12-[address] Tony Kay MD Work Phone: [facility] Work Phone: Start: 02-12-2025 End: 02-12-[address] Tony Kay MD -Laboratory, [facility] Start: 02-12-2025 End: 02-12-2025 ambulatory Tony Arcadia Facility:[facility] Start: 02-07-2025 End: 02-07-[address] Tony Kay MD -Laboratory Work Phone: Start: 02-07-[address] Tony Kay MD -Laboratory Work Phone: Start: 02-07-2025 End: 02-07-[address] Tony Kay MD Work Phone: [facility] Work Phone: Start: 02-04-2025 End: 02-04-[address] Tony Kay MD -Cat Scan, [facility] Work Phone: Start: 02-04-2025 End: 02-04-2025 ambulatory Tony Kay Facility:[facility] Start: 01-10-2025 End: 01-10-[address] Tony Kay MD Work Phone: [facility] Work Phone: Start: 01-10-2025 End: 01-10-[address] Tony Kay MD -Ultrasound, [facility] Work Phone: Start: 01-10-2025 End: 01-10-2025 ambulatory Tony Kay Facility:[facility] Start: 01-06-2025 End: 01-06-2025 ambulatory DREW RHODES Facility:[facility] Start: 01-06-2025 End: 01-06-2025 Office outpatient new 60 minutes Drew Rhodes DO Work Phone: [facility] Comment on above: Elevated serum creat inine (Primary Dx) Start: 01-03-2025 End: 01-03-[address] Tony Kay MD -Laboratory Work Phone: Start: 01-03-2025 End: 01-03-[address] Tony Kay MD Work Phone: [facility] Work Phone: Start: 01-02-2025 End: 01-02-2025 ambulatory MILTON VILLANUEVA Facility:[facility] Start: 12-04-2024 End: 12-04-[address] Tony Kay MD Work Phone: [facility] Work Phone: Start: 12-04-2024 End: 12-04-[address] Tony Kay MD -Laboratory, [facility] Start: 12-04-2024 End: 12-04-2024 ambulatory Tony Kay Facility:[facility] Start: 12-01-2024 End: 12-01-[address] Tony Kay MD Work Phone: [facility] Work Phone: Start: 12-01-2024 End: 12-01-[address] Tony Kay MD -Laboratory, [facility] Start: 12-01-2024 End: 12-01-2024 ambulatory Tony Kay Facility:[facility] Start: 11-28-2024 End: 11-28-2024 ambulatory MILTON VILLANUEVA Facility:[facility] Start: 11-28-2024 End: 11-28-2024 Patient encounter procedure Milton Villanueva MD Work Phone: Endocrinology Comment on above: Low serum cortisol l evel (Primary Dx); CKD stage 3a, GFR 45-59 ml/min (HCC); Hypertension, unspecified type Start: 11-26-2024 End: 11-26-2024 ambulatory Milton Villanueva MD Work Phone: Endocrinology Comment on above: Endocrinology Start: 11-26-2024 End: 11-26-2024 E-mail encounter from caregiver Milton Villanueva MD Work Phone: Endocrinology Start: 10-30-2024 End: 10-30-2024 ambulatory KIM ROSE Facility:[facility] Start: 10-30-2024 End: 10-30-2024 Patient encounter procedure Kim Rose OD Work Phone: Ophthalmology Comment on above: Blurred vision, bila teral (Primary Dx); Monocular exotropia with other noncomitancies, left eye; Hypertropia of left eye; Dry eye syndrome of both eyes Start: 10-16-2024 End: 10-16-[address] Tony aKy MD -[facility] Start: 10-16-2024 End: 10-16-2024 ambulatory Tony Kay Facility:[facility] Start: 08-20-2024 End: 08-20-[address] Tony Kay MD -[facility] Start: 08-20-2024 End: 08-20-2024 ambulatory Tony Kay Facility:[facility] Start: 08-07-2024 End: 08-07-2024 ambulatory Tony Kay Facility:[facility] Start: 08-06-2024 End: 08-06-2024 ambulatory Tony Kay Facility:[facility] Start: 07-02-2024 End: 07-02-2024 ambulatory Tony Kay Facility:[facility] Start: 06-16-2024 ambulatory Ben Emmanuel Facility :[facility] Start: 06-16-2024 End: 06-16-2024 ambulatory Tony Kay Facility:[facility] Start: 06-12-2024 End: 06-12-2024 ambulatory Tony Kay Facility:[facility] Start: 05-30-2024 End: 05-30-2024 ambulatory Tony Kay Facility:[facility] Start: 01-22-2024 End: 01-22-[address] Tony Kay Work Phone: [facility] Work Phone: Start: 01-22-2024 End: 01-22-[address] Tony Kay Work Phone: [facility] Start: 12-28-2023 End: 12-28-[address] Tony Kay Work Phone: [facility] Work Phone: Start: 12-28-2023 End: 12-28-[address] Tony Kay Work Phone: [facility] Start: 12-14-2023 End: 12-14-[address] Tony Kay Work Phone: [facility] Work Phone: Start: 12-14-2023 End: 12-14-[address] Tony Kay Work Phone: [facility] Start: 11-27-2023 End: 11-27-[address] Tony Kay Work Phone: [facility] Work Phone: Start: 11-27-2023 End: 11-27-[address] Tony Kay Work Phone: [facility] Start: 11-26-2023 End: 11-26-[address] Tony Kay Work Phone: [facility] Work Phone: Start: 11-07-2023 End: 11-07-[address] oTny Kay Work Phone: [facility] Work Phone: Start: 11-07-2023 End: 11-07-[address] Tony Kay Work Phone: [facility] Work Phone: Start: 09-24-2023 End: 10-07-[address] Tony Kay Work Phone: [facility] Work Phone: Start: 09-13-2023 End: 09-13-[address] Tony Kay Work Phone: [facility] Work Phone: Start: 09-13-2023 End: 09-13-[address] Tony Kay Work Phone: [facility] Work Phone: Start: 08-28-2023 End: 08-28-[address] Tony Kay Work Phone: [facility] Work Phone: Start: 08-14-2023 End: 08-14-[address] Tony Kay Work Phone: [facility] Work Phone: Start: 08-14-2023 End: 08-14-[address] Tony Kay Work Phone: [facility] Start: 07-31-2023 End: 07-31-[address] Tony Kay Work Phone: [facility] Work Phone: Start: 07-20-2023 Non-patient / Non-visit Dr. Diego Kay Work Phone: [facility] Start: 07-20-2023 End: 07-20-2023 Admission to same day surgery center Dr. Tony Kay Work Phone: [facility] Start: 06-27-2023 End: 06-27-[address] Tony Kay Work Phone: [facility] Work Phone: Start: 06-27-2023 End: 06-27-[address] Tony Kay Work Phone: [facility] Work Phone: Start: 06-15-2023 End: 06-15-[address] Tony Kay Work Phone: [facility] Work Phone: Start: 06-15-2023 End: 06-15-[address] Tony Kay Work Phone: [facility] Start: 06-01-2023 End: 06-01-[address] Tony Kay Work Phone: [facility] Work Phone: Start: 05-30-2023 End: 05-30-[address] Tony Kay Work Phone: [facility] Work Phone: Start: 05-29-2023 End: 05-29-[address] Tony Kay Work Phone: [facility] Work Phone: Start: 05-21-2023 End: 05-21-[address] Tony Kay Work Phone: [facility] Work Phone: Start: 05-21-2023 End: 05-21-[address] Tony Kay Work Phone: [facility] Start: 05-10-2023 End: 05-10-[address] Tony Kay Work Phone: [facility] Work Phone: Start: 05-10-2023 End: 05-10-[address] Tony Kay Work Phone: [facility] Start: 04-30-2023 End: 04-30-[address] Tony Kay Work Phone: [facility] Start: 04-25-2023 End: 04-25-[address] Tony Kay Work Phone: [facility] Start: 04-12-2023 End: 04-12-[address] Tony Kay Work Phone: [facility] Work Phone: Start: 04-12-2023 End: 04-12-[address] Tony Kay Work Phone: [facility] Start: 04-06-2023 End: 04-06-[address] Tony Kay Work Phone: [facility] Start: 03-30-2023 End: 03-30-[address] Tony Kay Work Phone: [facility] Start: 03-23-2023 End: 03-23-[address] Tony Kay Work Phone: [facility] Work Phone: Start: 03-23-2023 End: 03-23-[address] Tony Kay Work Phone: [facility] Start: 03-15-2023 Non-patient / Non-visit Dr. Diego Kay Work Phone: [facility] Start: 03-15-2023 End: 03-15-[address] [facility] Start: 03-12-2023 End: 03-12-[address] Tony Kay Work Phone: [facility] Start: 03-06-2023 End: 03-06-[address] Tony Kay Work Phone: [facility] Work Phone: Start: 03-06-2023 End: 03-06-[address] Tony Kay Work Phone: [facility] Start: 03-01-2023 Non-patient / Non-visit Dr. Diego Kay Work Phone: [facility] Start: 03-01-2023 End: 03-01-[address] Tony Kay Work Phone: [facility] Work Phone: Start: 03-01-2023 End: 03-01-[address] Tony Kay Work Phone: [facility] Start: 02-23-2023 End: 02-23-[address] Tony Kay Work Phone: [facility] Work Phone: Start: 02-23-2023 End: 02-23-[address] 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; Blurred vision, bilateral; Hypertropia of left eye; Monocular exotropia with other noncomitancies, left eye; Dry eye syndrome of both eyes Start: 11-01-2022 End: 11-01-2022 Patient encounter procedure Sung Carney MD Work Phone: Ophthalmology Comment on above: 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, right (Primary Dx) Start: 10-31-2022 End: 10-31-2022 Office outpatient visit 15 minutes Kim Rose OD Work Phone: Ophthalmology Comment on above: Posterior capsular o pacification visually significant of right eye (Primary Dx); Blurred vision, bilateral; 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, bilateral; Hypertropia of left eye; Monocular exotropia with other noncomitancies, left eye Start: 09-12-2022 End: 09-12-2022 Patient encounter procedure Sung Carney MD Work Phone: Ophthalmology Comment on above: Blurred vision, bila teral (Primary Dx); Pseudophakia of both eyes; 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, bilateral; Dry eye syndrome of both eyes Procedures Date Procedure Procedure Detail Performing Clinician Start: 03-10-2025 X-ray of chest, PA and lateral views Dr. Tony Kya MD Work Phone: Start: 03-10-2025 D-dimer assay, quantitative Dr. Tony ceballos MD Work Phone: Comment on above: NORMAL D-Dimer level (<0.50) indicates n o DVT or PE. Start: 02-26-[address] Tony Kay MD Work Phone: Comment on above: Test Ordered: [id number] Dexamethasone, Seru mDexamethasone, Serum 452 ng/dL ES Reference Range: .This test was developed and its performance characteristicsdetermined by [facility]. It has not been cleared or approvedby the Food and Drug Administration.Reference Range:Adults baseline: <308:00 AM following 1 mg dexamethasone previous evenin - 2958:00 AM following 8 mg dexamethasone(4 x 2 mg doses) previous day: 1600 - 2850Performed at: [facility] [address] [id number] Director: Evan Savage MD, Phone: [phone] at: [facility] [address] [id number] Director: Hesham Christopher PhD, Phone: [phone] Start: 02-04-2025 Computed tomography of abdomen and pelvis with contrast Dr. Tony Kay MD Work Phone: Start: 01-10-[address] Tony stoner MD Work Phone: Start: 01-06-2025 Urnls dip stick/tablet rgnt auto w/o microscopy Drew Rhodes DO Work Phone: Start: 12-01-2024 Measurement of renal function Dr. Tony berger MD Work Phone: Comment on above: GFR Calc Start: 06-27-2023 Computed tomography of abdomen and pelvis with contrast Dr. Tony Kay Work Phone: Start: 06-04-2023 Giardia Antigen (RICKI) Dr. Tony Kay Work Phone: Start: 06-04-20[address] [address] parasites identification [address] Tony Kay Work Phone: Start: 11-01-2022 Post-cataract laser surgery Sung stoner MD Work Phone: Start: 10-31-2022 Visual field xm uni/bi w/interp extended exam Kim Rose OD Work Phone: Start: 09-12-2022 End: 09-12-2022 Computerized ophthalmic imaging retina Sung Carney MD Work Phone: Start: 11-08-2011 Colonoscopy Sung Carney MD Work Phone: H/O: surgery H/O removal of cyst Dr. Tony Kay Work Phone: Plan of Treatment Date Care Activity Detail Author Start: 12-30-2030 RSV Vaccine (1 - 1-d ose 75+ series) RSV Vaccine (1 - 1-dose 75+ series) [facility] Start: 02-17-2026 BP Controlled (<130/80) BP Controlle d (<130/80) [facility] Start: 10-30-2025 End: 10-30-2025 Patient encounter procedure 10/30/2025 2:30 PM EST Office Visit [facility] [address] [place] [address] Kim Rose, OD [address] [place] [address] annual Ophthalmology Comment on above: annual Start: 06-08-2025 Influenza vaccination Influenz a Vaccine (Season Ended) [facility] Start: 03-10-2025 End: 03-10-2025 Procedure [facility] Start: 03-10-2025 Measurement of C-reactive protein using high sensitivity technique [facility] Start: 02-26-2025 Procedure [facility] Start: 02-17-2025 End: 05-19-2025 ALDOSTERONE/DIRECT RENIN RATIO ALDOSTERONE/DIRECT RENIN RATIO Lab Routine Hypertension, unspecified type Expected: 02/17/2025, Expires: 05/19/2025 [facility] Comment on above: Expected: 02/17/2025 , Expires: 05/19/2025 Start: 02-17-2025 End: 05-19-2025 Potassium [Moles/volume] in Serum or Plasma POTASSIUM Lab Routine Hypertension, unspecified type Expected: 02/17/2025, Expires: 05/19/2025 [facility] Work Phone: Comment on above: Expected: 02/17/2025 , Expires: 05/19/2025 Start: 01-06-2025 End: 01-06-2025 Patient encounter procedure 01/06/2025 11:00 AM EDT Office Visit [facility] [address] [place] [address] [place] [address] [place] [address] CKD stage 3a, GFR 45-59 ml/min (HCC) [N18.31] [facility] Comment on above: CKD stage 3a, GFR 45 -59 ml/min (HCC) [N18.31] Start: 12-09-2024 Covid-19 Vaccine ( season) Covid-19 Vaccine () [facility] [facility] Start: 11-28-2024 End: 02-27-2025 ALDOSTERONE/DIRECT RENIN RATIO ALDOSTERONE/DIRECT RENIN RATIO Lab Routine Hypertension, unspecified type Expected: 11/28/2024, Expires: 02/27/2025 [facility] Work Phone: Comment on above: Expected: 11/28/2024 , Expires: 02/27/2025 Start: 11-28-2024 End: 02-27-2025 Corticotropin [Mass/volume] in Plasma ACTH BLD Lab Routine Low serum cortisol level Expected: 11/28/2024, Expires: 02/27/2025 [facility] Comment on above: Expected: 11/28/2024 , Expires: 02/27/2025 Start: 11-28-2024 End: 02-27-2025 Cortisol [Mass/volume] in Serum or Plasma CORTISOL, SERUM Lab Routine Low serum cortisol level Expected: 11/28/2024, Expires: 02/27/2025 [facility] Comment on above: Expected: 11/28/2024 , Expires: 02/27/2025 Start: 11-28-2024 End: 02-27-2025 Potassium [Moles/volume] in Serum or Plasma POTASSIUM Lab Routine Hypertension, unspecified type Expected: 11/28/2024, Expires: 02/27/2025 [facility] Comment on above: Expected: 11/28/2024 , Expires: 02/27/2025 Start: 11-28-2024 End: 11-28-2024 Patient encounter procedure 11/28/2024 1:40 PM EST Office Visit Endocrinology [address] [place] [address] Milton Villanueva MD [address] [place], [place] [id number] ALDOSTERONISM Endocrinology Comment on above: ALDOSTERONISM Start: 10-08-2024 Advance Directive Discussion Advance Directive Discussion [facility] Start: 06-08-2024 Influenza vaccination Influenza Vacc ine (#1) [facility] Start: 07-20-2023 Patient discharge [facility] Start: 07-20-2023 Anes integ musc & nr v head neck&posterior trunk ANESTH HEAD/NECK/PTRUNK [facility] Start: 07-20-2023 Exc b9 les mrgn xcp sk tg f/e/e/n/l/m 1.1-2.0cm EXC FACE-MM B9+ONEAL 1.1-2 CM [facility] Start: 10-08-2022 ADVANCE DIRECTIVE DISCUSSION ADVANCE DIRECTIVE DISCUSSION [facility] Start: 10-08-2022 [facility] Start: 06-08-2022 Influenza vaccination INFLUENZA (#1) [facility] Start: 10-08-2021 ADVANCE DIRECTIVE DISCUSSION ADVANCE DIRECTIVE DISCUSSION [facility] Start: 10-08-2021 DEPRESSION ASSESSMENT DEPRESSION ASS ESSMENT [facility] Start: 05-01-2021 PROSTATE CANCER SCREENING DISCUSSION PROSTATE CANCER SCREENING DISCUSSION [facility] Start: 05-01-2021 Prostate specific antigen measurement Prostate Cancer Screening Discussion [facility] Start: 12-30-2020 PNEUMOCOCCAL: 65+ (1 - PCV) PNEUMOCOCCAL: 65+ (1 - PCV) [facility] Start: 05-01-2019 DIABETES SCREEN DIABETES SCREEN [facility] Start: 05-01-2019 Diabetes Screening Diabetes Screenin g [facility] Start: 05-28-2017 End: 05-28-2017 Appointment Appointment [facility] Work Phone: Start: 05-24-2017 End: 05-28-2017 Diagnostic colonoscopy Colonoscopy [facility] Work Phone: Start: 08-09-2016 Urine microalbumin profile DTaP,Tdap,Td Vaccine (1 - Tdap) [facility] Start: 2015 RSV Vaccine (1 - Ris k 60-74 years 1-dose series) RSV Vaccine (1 - Risk 60-74 years 1-dose series) [facility] Start: 11-08-2012 Colonoscopy COLONOSCOPY [facility] Start: 11-08-2012 COLORECTAL CANCER SCREENING COLORECTAL CANCER SCREENING [facility] Start: 11-08-2012 Screening for malign ant neoplasm of colon [facility] Start: 12-30-2005 Pneumococcal Vaccine : 50+ (1 of 1 - PCV) Pneumococcal Vaccine: 50+ (1 of 1 - PCV) [facility] Start: 12-30-2005 SHINGRIX VACCINE (1 of 2) SHINGRIX VACCINE (1 of 2) [facility] Start: 12-30-2000 COLOGUARD (FIT-DNA) COLOGUARD (FIT-D NA) [facility] Start: 12-30-[address] COLONOGRAPHY [facility] Start: 12-30-2000 FECAL OCCULT BLOOD FECAL OCCULT BLOO D [facility] Start: 12-30-2000 Screening for malign ant neoplasm of colon [facility] Start: 12-30-2000 [facility] Start: 12-30-1990 Lipid panel Lipid Screening [facility] Start: 12-30-1990 LIPID SCREEN LIPID SCREEN [facility] Start: 12-30-1974 Urine microalbumin profile DTAP,TDAP,TD (1 - Tdap) [facility] Start: 12-30-1973 Annual PCP Team Knuckle Bender julianne Disease Visit Annual PCP Team Chronic Disease Visit [facility] Start: 12-30-1973 Anxiety Screening Anxiety Screening [facility] Start: 12-30-1973 Depression Screening Depression Scre ening [facility] Start: 12-30-1973 HEPATITIS C SCREENING HEPATITIS C [facility] Start: 12-30-1973 Hepatitis C screening Hepatitis C [facility] Patient referral [facility] Work Phone: [facility] Immunizations Immunization Date Immunization Notes Care Provider Fa cility 01-11-2021 Covid (Pfizer) [facility] 12-21-2020 Covid (Pfizer) [facility] Payers Date Payer Category Payer Self-pay [id number] 2020 Medicare [id number] 2020 Private Health Insurance MMO MED ICARE SUPPLEMENT [id number] 2020 Medicare [id number] 2016 Unknown [employer] EXCHANGE PLAN [id number] 2014 Unknown [id number] 2013 Unknown [id number] Unknown [id number] Unknown [id number] 2.16.840.1.988108.3.579.2. 462 Unknown [id number] 2.16.840.1.309495.3.579.2. 462 Unknown [id number] 2.16.840.1.732005.3.579.2. 462 Unknown [id number] 2.16.840.1.988357.3.579.2. 462 Unknown [id number] 2.16.840.1.988920.3.579.2. 462 Unknown [id number] 2.16.840.1.508722.3.579.2. 462 Unknown [id number] 2.16.840.1.321535.3.579.2. 462 Unknown [id number] 2.16.840.1.685556.3.579.2. 462 Unknown [id number] 2.16.840.1.022409.3.579.2. 462 Unknown [id number] 2.16.840.1.544523.3.579.2. 462 Unknown [id number] 2.16.840.1.170110.3.579.2. 462 Unknown [id number] 2.16.840.1.840974.3.579.2. 462 Unknown [id number] 2.16.840.1.207971.3.579.2. 462 Unknown [id number] 2.16.840.1.767954.3.579.2. 462 Unknown [id number] 2.16.840.1.063811.3.579.2. 462 Unknown [id number] 2.16.840.1.800677.3.579.2. 462 Unknown [id number] 2.16.840.1.058790.3.579.2. 462 Unknown [id number] 2..840.1.658524.3.579.2. 462 Unknown [id number] 2.840.1.408157.3.579.2. 462 Unknown [id number] 2.16840.1.216017.3.579.2. 462 Social History Date Type Detail Facility Start: 11-01-2011 End: 06-11-2024 Tobacco smoking status NHIS Never smoked tobacco [facility] Start: 11-01-2011 Tobacco use and exposure Smokeless tobacco non-user [facility] Start: 09-12-2022 End: 02-17-2025 Alcohol intake Current non-drinker of alcohol (finding) [facility] Start: 1955 Sex Assigned At Male [facility] Start: 01-28-2018 End: 11-26-2023 Tobacco smoking status LAIS Unknown if ever smoked [facility] Start: 10-30-2024 End: 11-28-2024 History of Social function [facility] Start: 10-30-2024 End: 11-28-2024 Tobacco use panel [facility] National Score (1-10 0), lower number is lower risk 35 [facility] Start: 09-06-2022 Gender identity Identifies as male gender (finding) [facility] Start: 09-06-2022 Sexual orientation Heterosexual (fin ding) [facility] Start: 12-12-2024 End: 01-13-2025 Sex Male (finding) [facility] Medical Equipment Procedure Code Equipment Code Equipment Origin al Text Equipment Identifier Dates M[employer] [id number] - [id number] Start: 05-24-2015 Pin Crss Sd Scr 1.5x4mm - [id number] Start: 05-24-2015 Goals Date Patient Goal Desired Activity /State Functional Status Date Assessment Result Facility 05-26-2015 Are you deaf, or do you have serious difficulty hearing No 05/26/2015 12:23 PM Mirlande Nolen APRN.VP [employer] No [facility] Work Phone: 05-26-2015 Are you blind, or do you have serious difficulty seeing, even when wearing glasses No 05/26/2015 12:23 PM EDT Mirlande Torres APRN.VP [employer] No [facility] 05-26-2015 Do you have serious difficulty walking or climbing stairs No 05/26/2015 12:23 PM EDT Mirlande Torres APRN.VP [employer] No [facility] 05-26-2015 Do you have difficul ty dressing or bathing No 05/26/2015 12:23 PM EDT Mirlande Torres APRN.VP [employer] No [facility] 05-26-2015 Because of a physica l, mental, or emotional condition, do you have difficulty doing errands alone such as visiting a physician's office or shopping No 05/26/2015 12:23 PM EDT Mirlande Torres APRN.VP [employer] No [facility] Mental Status Date Assessment Result Facility 07-20-2023 Cognitive function Voice/Name [facility] Work Phone: 05-26-2015 Because of a physica l, mental, or emotional condition, do you have serious difficulty concentrating, remembering, or making decisions No 05/26/2015 12:23 PM EDT Mirlande Torres APRN.VP [employer] No [facility] Clinical Notes 09-12-2022 to 03-10-2025 Patient InstructionsMilton Villanueva MD - 02/17/2025 4:27 PM EDTPatient Drew Smith DO - 01/06/2025 11:00 AM EDTPatient Gabino Carney MD - 11/01/2022 2:18 PM EST Note Date & Type Note Facility 03-10-2025 Radiology Diagnostic study note [facility] [address] [place] [address] Chest PA and Lateral MR#: [id number] Acct: [id number] Name: BALTAZAR BAY Rep #: [id number] : [id number] M 69 From: Jay Barnes MD PCP: Dr. Tony Kay MD Status: REG CLI Study:Chest PA and Lateral Date of Exam: 03/10/25 Exam# [id number] Ordering Dr: Diego Kay MD PROCEDURE: CHEST PA AND LATERAL 03/10/2025 REASON FOR EXAM: ATYPICAL CHEST PAIN TECHNIQUE: Frontal and lateral views of the chest. COMPARISON: None FINDINGS: The lungs are clear. The heart borders mediastinum and pulmonary vascular pattern are normal. The upper abdominal bowel gas pattern is normal. There are no bony abnormalities. RAD/Chest PA and Lateral IMPRESSION: No evidence of acute cardiopulmonary pathology. Reading Location: [id number] CC: Dr. Tony Kay MD ~ [employer] Leveling Machine: Signed [facility] Work Phone: 02-17-2025 Instructions Milton Villanueva MD - 02/17/2025 4:39 PM EDT Please repeat labs when potassium is repleted documented in this encounter [facility] 02-17-2025 Note HNO ID: [id number] Author: MILTON VILLANUEVA MD Service: ? Author Type: Physician Type: Progress Notes Filed: 02/17/2025 18:53 Note Text: [facility] Follow up note History of Present Illness: Mr. Baltazar Bay is a 68 year old male coming today for follow up after initial visit on 11/28/24. He presented after self referral for evaluation of high aldosterone levels. Today he is accompanied by his He reports recommending his PCP to check aldosterone based on 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 He follows [facility] abstracts, [facility] and [facility] articles, and reports he thought the fluid retention was secondary to aldosterone and hence requested for these labs He has been on metolazone for 7 years for HTN, and on lasix 40 mg daily for 14 years Potassium 20 mEq 2 to 3 times daily - for the last 8 years He has been on triamterene- hydrochlorothiazide as well, which he reports to have stopped taking 3 weeks ago, as it did not help with fluid retention He was also on spironolactone in the past for 2 months, reports no much difference in fluid retention or blood pressure noted at that time either He has a hx of CKD stage 3a (eGFR 53 on the most recent CMP). Reports seeing nephrology locally with not much help, was advised to continue loop diuretics He is not on any typical antihypertensive medications at this time, and is only on loop diuretics which can lower BP anyway He also reports that he eats very low salt and if he increases the salt even by 100 mg, his weight increases Denied any arrhythmia/palpitations, nausea, vomiting, lightheadedness/dizziness, weight loss CT abdomen and pelvis with contrast at [facility] on 06/27/2023 shows unremarkable adrenal glands (scanned into system) Supplements include: Alpha lipoic acid 300 mg daily Krill oil 500 mg daily Lysine 500 mg daily Magnesium chelated 250 mg 2 tablets a day Vitamin B12 methylcobalamin 5000 mcg 3 times a week Vitamin D3 2000 units once daily Zinc 50 mg once daily Florastor once daily Probiotics once daily Interval history: 02/17/25: Patient was seen by Nephrology and was advised to stop lasix, so he does not have to take K supplements., Patient reported that he did not take his supplements for potassium on the night before the test Currently on 80 mEq of K supplements TID Past Medical History: PAST MEDICAL HISTORY Diagnosis Date Deafness in right ear External hemorrhoids without mention of complication 12/04/05 Hemorrhage of gastrointestinal tract, unspecified 12/04/05 Internal hemorrhoids without mention of complication 12/04/05 PMH - PAST MEDICAL HISTORY OF low testosterone blood test 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 Unspecified hemorrhoids without mention of complication Surgical History: PAST SURGICAL HISTORY Procedure Laterality Date COLONOSCOPY FLX DX W/COLLJ SPEC WHEN PFRMD 12/04/05 PAST SURGICAL HISTORY OF polyp removed posterior off back PAST SURGICAL HISTORY OF skin tim benign PAST SURGICAL HISTORY OF keloid 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 PAST SURGICAL HISTORY OF 05/24/15 removal of acoustic neuroma Family Medical History: FAMILY HISTORY Problem Relation Age of Onset Allergies Mother Ischemic Heart Disease Father No Ocular Disease No Family History Social History: Social History Tobacco Use Smoking status: Never Smokeless tobacco: Never Substance Use Topics Alcohol use: No Drug use: No Allergies: ALLERGIES Allergen Reactions Aspirin Rash Penicillins Rash Sulfamethoxazole Other: See Comments migraine Sulfasalazine Other: See Comments Current medications: Current Outpatient Medications Medication Sig potassium chloride ER (KLOR-CON) 20 mEq tablet Take 80 mEq by mouth three times a day. Gabapentin 100 mg tab Take 300 mg by mouth once daily. metOLazone (ZAROXOLYN) 5 mg tablet Take 5 mg by mouth once daily. cholecalciferol, vitamin D3, (VITAMIN D3 ORAL) Take by mouth once daily. Lactobacillus acidophilus (PROBIOTIC ORAL) Take by mouth once daily. Saccharomyces boulardii (FLORASTOR ORAL) Take by mouth once daily. [id number]-ast [id number] mg cap zinc sulfate (ZINC-220) 220 mg (50 mg zinc) capsule furosemide (LASIX) 40 mg tablet Take 40 mg by mouth once daily. Magnesium 250 mg tab Take 250 mg by mouth twice daily. LORazepam (ATIVAN) 1 mg tablet Take 1 mg by mouth every 6 hours as needed. ALPHA LIPOIC ACID ORAL Take 600 mg by mouth once daily. cyanocobalamin, vitamin B-12, 5,000 mcg/mL drop Dissolve 5,000 mcg under the tongue. CPAP daily at bedtime. ferrous sulfate (IRON) 325 mg (65 mg iron) tablet Doxepin 6 mg tab triamterene-hydroCHLOROthiazide (MAXZIDE-25) 37.5-25 mg per tablet (Patient not taking: Reported on 10/30/2024) CHONDROITIN SULFATE A ORAL Take 1,500 mg by mouth once daily. (Patient not taking: Reported (more content not included)... [facility] 02-17-2025 History of Present illness Narrative [facility] Follow up note History of Present Illness: Mr. Baltazar Bay is a 68 year old male coming today for follow up after initial visit on 11/28/24. He presented after self referral for evaluation of high aldosterone levels. Today he is accompanied by his He reports recommending his PCP to check aldosterone based on 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 He follows [facility] abstracts, [facility] and [facility] articles, and reports he thought the fluid retention was secondary to aldosterone and hence requested for these labs He has been on metolazone for 7 years for HTN, and on lasix 40 mg daily for 14 years Potassium 20 mEq 2 to 3 times daily - for the last 8 years He has been on triamterene- hydrochlorothiazide as well, which he reports to have stopped taking 3 weeks ago, as it did not help with fluid retention He was also on spironolactone in the past for 2 months, reports no much difference in fluid retention or blood pressure noted at that time either He has a hx of CKD stage 3a (eGFR 53 on the most recent CMP). Reports seeing nephrology locally with not much help, was advised to continue loop diuretics He is not on any typical antihypertensive medications at this time, and is only on loop diuretics which can lower BP anyway He also reports that he eats very low salt and if he increases the salt even by 100 mg, his weight increases Denied any arrhythmia/palpitations, nausea, vomiting, lightheadedness/dizziness, weight loss CT abdomen and pelvis with contrast at [facility] on 06/27/2023 shows unremarkable adrenal glands (scanned into system) Supplements include: Alpha lipoic acid 300 mg daily Krill oil 500 mg daily Lysine 500 mg daily Magnesium chelated 250 mg 2 tablets a day Vitamin B12 methylcobalamin 5000 mcg 3 times a week Vitamin D3 2000 units once daily Zinc 50 mg once daily Florastor once daily Probiotics once daily Interval history: 02/17/25: Patient was seen by Nephrology and was advised to stop lasix, so he does not have to take K supplements., Patient reported that he did not take his supplements for potassium on the night before the test Currently on 80 mEq of K supplements TID Past Medical History: PAST MEDICAL HISTORY Diagnosis Date Deafness in right ear External hemorrhoids without mention of complication 12/04/05 Hemorrhage of gastrointestinal tract, unspecified 12/04/05 Internal hemorrhoids without mention of complication 12/04/05 PMH - PAST MEDICAL HISTORY OF low testosterone blood test 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 Unspecified hemorrhoids without mention of complication Surgical History: PAST SURGICAL HISTORY Procedure Laterality Date COLONOSCOPY FLX DX W/COLLJ SPEC WHEN PFRMD 12/04/05 PAST SURGICAL HISTORY OF polyp removed posterior off back PAST SURGICAL HISTORY OF skin tim benign PAST SURGICAL HISTORY OF keloid 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 PAST SURGICAL HISTORY OF 05/24/15 removal of acoustic neuroma Family Medical History: FAMILY HISTORY Problem Relation Age of Onset Allergies Mother Ischemic Heart Disease Father No Ocular Disease No Family History Social History: Social History Tobacco Use Smoking status: Never Smokeless tobacco: Never Substance Use Topics Alcohol use: No Drug use: No Allergies: ALLERGIES Allergen Reactions Aspirin Rash Penicillins Rash Sulfamethoxazole Other: See Comments migraine Sulfasalazine Other: See Comments Current medications: Current Outpatient Medications Medication Sig potassium chloride ER (KLOR-CON) 20 mEq tablet Take 80 mEq by mouth three times a day. Gabapentin 100 mg tab Take 300 mg by mouth once daily. metOLazone (ZAROXOLYN) 5 mg tablet Take 5 mg by mouth once daily. cholecalciferol, vitamin D3, (VITAMIN D3 ORAL) Take by mouth once daily. Lactobacillus acidophilus (PROBIOTIC ORAL) Take by mouth once daily. Saccharomyces boulardii (FLORASTOR ORAL) Take by mouth once daily. [id number]-[id number]-4-[id number]-jnk-cvhebgp-ast [id number] mg cap zinc sulfate (ZINC-220) 220 mg (50 mg zinc) capsule furosemide (LASIX) 40 mg tablet Take 40 mg by mouth once daily. Magnesium 250 mg tab Take 250 mg by mouth twice daily. LORazepam (ATIVAN) 1 mg tablet Take 1 mg by mouth every 6 hours as needed. ALPHA LIPOIC ACID ORAL Take 600 mg by mouth once daily. cyanocobalamin, vitamin B-12, 5,000 mcg/mL drop Dissolve 5,000 mcg under the tongue. CPAP daily at bedtime. ferrous sulfate (IRON) 325 mg (65 mg iron) tablet Doxepin 6 mg tab triamterene-hydroCHLOROthiazide (MAXZIDE-25) 37.5-25 mg per tablet (Patient not taking: Reported on 10/30/2024) CHONDROITIN SULFATE A ORAL Take 1,500 mg by mouth once daily. (Patient not taking: Reported on 10/30/2024) LEVOCARNITINE (CARNITINE ORAL) Take 1,000 mg by mouth twice daily. (Patient not taking: Reported on 10/30/2024) ARGININE HCL, L-ARGININE, ORAL Take 1,800 mg by mouth once daily. (Patient not taking: Reported on 10/31/2022) LYSINE ORAL Take 2,000 mg by mouth once daily. GLUCOSAMINE HCL ORAL Take 1,500 mg by mouth once daily. (Patient not taking: Reported on 10/30/2024) COENZYME [id number] ORAL Take 600 mg by mouth twice daily. (Patient not taking: Reported on 10/30/2024) CALCIUM CARBONATE/VITAMIN D3 (VITAMIN D-3 ORAL) Take 4,000 Units by mouth once daily. (Patient not taking: Reported on 10/31/2022) potassium citrate ER (UROCIT-K) 10 mEq (1,080 mg) TbER Take 20 mEq by mouth two times a day. Gabapentin 300 mg ORAL Tab Take 1 tablet by mouth once daily. MULTIVITAMIN TAB Take one(1) tablet daily by mouth (Patient not taking: Reported on 10/30/2024) OMEGA 3 550 MG CAP Take one(1) tablet daily by mouth (Patient not taking: Reported on 10/30/2024) No current facility-administered medications for this visit. Review of Systems: 10 point ROS was reviewed and negative unless indicated in the HPI Physical exam: BP 122/70 (BP Site: Right Arm, BP Position: Sitting, BP Cuff Size: Large Adult) Pulse 77 Wt 114.3 kg (252 lb) SpO2 98% BMI 40.67 kg/m General Appearance: Well appearing, alert, in no acute distress, well-hydrated, well nourished, obese body habitus Skin: Skin color, texture, turgor normal, no suspicious rashes or lesions. Eyes: Anicteric sclera. Extraocular movements are intact. Lungs: unlabored breathing on room air Heart: Regular rate and rhythm Abdomen: central obesity >peripheral. Extremities: No deformities. Has bilateral LE edema Musculoskeletal: No joint swelling, deformity, or tenderness. Peripheral Pulses: Normal. Neurologic: Gait normal. Previous laboratory results: OSH 10/16/2024, 2:27 PM CMP: Sodium-137 mmol/L (136-145) Potassium 3.7 mmol/L (3.5-5.1) Chloride 101 mmol/L (98-110) BUN 27 mg/dL (7-18) Creatinine 1.41 mg/dL (0.7-1.3) Glucose 136 mg/dL (74-106) Calcium 9.5 mg/dL (8.5-10.1) Renin 11.633 ng/mL/h (0.167-5.38) Aldosterone 82 ng/dL (0.0-30.0) ACTH 21.2 pg/mL (7.2-63.3) Cortisol 7.7 ug/dl 08/20/2024 Magnesium 2.7 mg/dL (1.6-2.6) AST 22U/L (15-37) ALT 38U/L (16-61) Alkaline phosphatase 75U/L (45-117) Total protein 8.1 g/dL (6.4-8.2) Albumin 3.2 g/dL (3.2-5.0) Globulin 4.9 g/dL (2.2-4.2) Albumin/globulin ratio: 0.7 (0.9-2.4) 25-hydroxy vitamin D 46.6 ng/dL PTH intact 58.7 pg/mL (18.4-80.1) Latest Ref Rng 01/02/2025 Aldosterone 0.0 - <35.4 ng/dL 36.9 (H) Direct Renin 3.6 - 81.6 pg/mL 97.3 (H) Aldosterone/Renin Ratio <3.8 0.4 Patient Upright or Supine Upright Potassium 3.7 - 5.1 mmol/L 3.0 (L) ACTH 7.2 - 63.3 pg/mL 20.4 Cortisol 4.8 - 19.5 ug/dL 12.0 Legend: (H) High (L) Low Imaging: OSH CT abdomen and pevis w IV contasrt: 06/27/2023: Adrenal glands: unremarkable Impression: No acute findings Colonic diverticulosis without evidence of acute diverticulitis. Small umbilical hernia containing minimal anterior wall small bowel without evidence of complication. Right nephrolithiasis without hydronephrosis. Enlarged prostate. Echocardiogram in 03/2023 was showing normal LV size and function, estimated EF was 60%, stage I diastolic disorder. ASSESSMENT/PLAN: Elevated Aldosterone levels: I discussed with patient that the aldosterone levels might be possibly high due to using 3 different antidiuretics when the labs were done- metolazone, lasix and HCTZ, and these can increase the ARR, if any. In his case ARR is only 7 While Triamterene is a potassium sparing diuretic, it can decrease ARR I suggested that there is no significant concern that aldosterone levels abnormally high in this case as he thinks that aldosterone levels are causing fluid retention, as this should have been improved while on triamterene or atleast on spironolactone which is MR antagonist Liver function test are normal, not causing edema Echocardiogram in 03/2023 was showing normal LV size and function, estimated EF was 60%, stage I diastolic disorder. He has CKD, but I am not sure if the renal function is that significantly low to result in fluid retention that he is claiming I advised to him to repeat labs but patient forgot to take potassium on the night before the test and the levels were low. I discussed with him that the most recent labs are not concerning for aldosterone excess but if he would liek to repeat then the potassium levels must be normalized first ACTH and cortisol levels are normal He has seen nephrology who advised stopping lasix to correct hypokalemia, but patient started the medication today by himself Patient seems to understand that aldosterone is not the reason why he has fluid retention, but keeps asking the same questions what is causing his fluid retention, and asks about kidney cysts, reports that his town administrator told him that the kidneys are functioning fine. I had to remind the patient that I would not be able to go deeper into kidney issues, but it does not appear like aldosterone is not abnormally produced as was discussed opn last appointment. On reviewed he can repeat labs when potassium normalize again if he is worried about aldosterone issues because potassium was low if he prefers Labs ordered as per his preference All questions welcomed and answered to satisfaction Patient understands and agrees with the plan discussed. Follow up in 2 weeks Medical Decision Making: Problems: Low: Stable chronic illness Data: Unique test result(s) reviewed: 3+ Unique test(s) ordered: 3+ Risk: Moderate: Moderate risk from testing/treatment Medical Decision Making Level: 4 - Moderate Milton Villanueva MD Endocrinology Associate Staff [facility] Endocrinology and Metabolism Wallace [phone] documented in this encounter [facility] 01-11-2025 Radiology Diagnostic study note [facility] Services [address], [place] [id number] Abdomen Limited MR#: [id number] Acct: [id number] Name: BALTAZAR BAY Rep #: [id number] M [id number] From: And radhika Koch DO PCP: Dr. Tony Kay MD Status: REG CLI Study:Abdomen Limited Date of Exam: 03/01 Exam# [id number] Ordering Dr: Diego Kay MD PROCEDURE: Abdominal ultrasound. 01/10/2025 REASON FOR EXAM: FATTY INFILTRATION TECHNIQUE: Ultrasound images of the upper abdomen were obtained. COMPARISON: No prior relevant study available. FINDINGS: The visualized portions of the pancreas show no specific abnormality. Segmentally visualized portions of the liver demonstrate coarse echotexture. Nosolid liver lesion. Portions of the liver are not well evaluated on this study. The gallbladder is sonographically unremarkable. Negative sonographic Doe's sign. The common duct measures 3 mm. The right kidney is 11.8 cm in length. Cortical-medullary differentiation is maintained. There is a complex partially exophytic lesion of the right kidney measuring 2.3 cm. This appears to contain an internal 5 mm calcification. US/Abdomen Limited IMPRESSION: Sonographically unremarkable gallbladder. Negative sonographic Doe's sign. Normal caliber common duct at 3 mm. Coarse liver echotexture suggesting fatty metamorphosis. No definite discrete liver lesion, although evaluation is limited on this study. No obstructive uropathy right kidney. There is a partially exophytic 2.3 cm mildly hypoechoic lesion of the right kidney, with internal debris in 5 mm internal calcification. This could represent a complex cyst with a partially solid lesion not excluded. Recommend short-term follow-up dedicated renal CT without and with intravenous contrast. [facility] CC: Dr. Tony Kay MD ~ Beater Out Leveling Machine: Signed [facility] 01-06-2025 Instructions Drew Rhodes DO - 01/06/2025 11:46 AM EDT No evidence we can see of heart , liver, kidney disease. Thus no need for diuretics to control blood pressure necessarily, recommend stopping them and monitor weight, swelling and blood pressure for couple weeks going forward If blood pressure goes up and swelling goes up, give it a couple weeks. If it remains up (blood pressure,swellign) then re-evaluate need for diuretic and or other BP medicines I do not recommend lasix and metolazone in the absence of heart disease, liver disease, kidney disease documented in this encounter [facility] 01-06-2025 History of Present illness Narrative NEPHROLOGY CLINIC INITIAL VISIT PATIENT NAME: Baltazar Bay Consultation requested by Dr. Villanueva for an opinion regarding elevated Cr. My final recommendations will be communicated back to the requesting physician by way of shared Medical record or letter to requesting physician via US mail. ASSESSMENT/PLAN Elevated Cr 1.2 (most recent) previously 1.6 -diuretic induced, if edema is not improving with aggressive diuretics, than its not diuretic responsive and he should stop -he started diuretics (spironolactone, lasix, bumex metolazone) ~12 years ago for mild hypertension and LE edema. No hx of HF, CKD, Liver disease Plan -explained in depth the kidney physiology, hormone regulation and ability of the kidney to re-establish salt balance in steady state -advised stop all diuretics, monitor bp and weight and swelling at home, if BP elevated would choose mari/arb/ccb not a diuretic given complications from this (hypokalemia) -follow up as needed HPI: 69 year-old male referred by Dr. Villanueva for CKD3, evaluated in the endocrinology office for elevated aldosterone levels as a self-referral. He reportedly does a lot of his own research and has been on multiple diuretics and potassium replacement for many years, including triamterene thiazide, which he had recently stopped taking. He was on spironolactone but reported not much difference and breast tenderness. - At that visit, he also reported he had stage 3 kidney disease. [facility] but did not benefit much from that visit apparently. -He has no HF, Liver disease or Kidney disease, he take loop + thiazide daily for over 10 years and is fixated on salt related weight gain. Diagnostic Results: - Blood work: - Creatinine: 1.4 (reference range 0.7-1.3) - eGFR: >60 - Magnesium: 2.7 (elevated) - Renin: 11.6 - Aldosterone: 82 - PTH: 58 (within normal range) - BUN: 27 - Sodium: 137 - Bicarbonate: Normal - Imaging: - CT scan of the abdomen (2022): Shows a small calculus in the right kidney, small cyst in the right kidney, otherwise unremarkable. Current Medications: - Metolazone - Lorazepam - Supplements: Carnitine, chondroitin, B12, alpha lipoic acid, glucosamine, potassium citrate, and gabapentin. Liver function test are normal Echocardiogram in 03/2023 was showing normal LV size and function, estimated EF was 60%, stage I diastolic disorder. Current Outpatient Medications Medication Instructions ALPHA LIPOIC ACID ORAL 600 mg, DAILY ARGININE HCL, L-ARGININE, ORAL 1,800 mg, DAILY CALCIUM CARBONATE/VITAMIN D3 (VITAMIN D-3 ORAL) 4,000 Units, DAILY cholecalciferol, vitamin D3, (VITAMIN D3 ORAL) DAILY CHONDROITIN SULFATE A ORAL 1,500 mg, DAILY COENZYME [id number] ORAL 600 mg, 2 TIMES DAILY CPAP AT BEDTIME cyanocobalamin (vitamin B-12) 5,000 mcg Doxepin 6 mg tab ferrous sulfate (IRON) 325 mg (65 mg iron) tablet furosemide (LASIX) 40 mg, DAILY Gabapentin 300 mg ORAL Tab 1 tablet, DAILY GLUCOSAMINE HCL ORAL 1,500 mg, DAILY [id number]-ast 220-124-79-64 mg cap Lactobacillus acidophilus (PROBIOTIC ORAL) DAILY LEVOCARNITINE (CARNITINE ORAL) 1,000 mg, 2 TIMES DAILY LORazepam (ATIVAN) 1 mg, EVERY 6 HOURS NEEDED LYSINE ORAL 2,000 mg, DAILY Magnesium 250 mg, 2 TIMES DAILY metOLazone (ZAROXOLYN) 5 mg, DAILY MULTIVITAMIN TAB Take one(1) tablet daily by mouth OMEGA 3 550 MG CAP Take one(1) tablet daily by mouth potassium citrate ER (UROCIT-K) 10 mEq (1,080 mg) TbER 20 mEq, 2 TIMES DAILY Saccharomyces boulardii (FLORASTOR ORAL) DAILY triamterene-hydroCHLOROthiazide (MAXZIDE-25) 37.5-25 mg per tablet zinc sulfate (ZINC-220) 220 mg (50 mg zinc) capsule Social History Tobacco Use Smoking status: Never Smokeless tobacco: Never Substance Use Topics Alcohol use: No Drug use: No FAMILY HISTORY Problem Relation Age of Onset Allergies Mother Ischemic Heart Disease Father No Ocular Disease No Family History PAST SURGICAL HISTORY Procedure Laterality Date COLONOSCOPY FLX DX W/COLLJ SPEC WHEN PFRMD 12/04/05 PAST SURGICAL HISTORY OF polyp removed posterior off back PAST SURGICAL HISTORY OF skin tim benign PAST SURGICAL HISTORY OF keloid 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 @IODETAILS@ Intake/Output None GENERAL: no distress EXTREMITIES:Trace edema Obese DATA: Diagnostic tests reviewed for today's visit: Most recent labs and imaging results. CBC, Coags, BMP, Mg, Phos Liver Function, Amylase, & Lipase ABGs SIGNATURE: Drew Rhdoes DO DATE: January 05, 2025 TIME: 10:10 AM During this patient visit I have spent approximately 60 minutes out of 60 in counseling regarding medications, test results, and coordinating care and coordinating care. Medical Decision Making: Medical Decision Making Level: 1 - N/A Complexity: Low (1 stable chronic), moderate (2 stable chronic, 1 with exacerbation), High (severe exacerbation) Amount/Complexity of Data: limited (review prior notes & tests), moderate (review notes & tests or discussion MD/independent review/order test) Extensive (review notes & tests AND discussion MD/independent review/order test) Risk of complication :Moderate (Rx, procedure decision) High (intensive monitoring, immunosuppression, hospitalization,de-escalate care) documented in this encounter [facility] 01-06-2025 Note HNO ID: [id number] Author: DREW RHODES DO Service: ? Author Type: Physician Type: Progress Notes Filed: 01/06/2025 13:00 Note Text: NEPHROLOGY CLINIC INITIAL VISIT PATIENT NAME: Baltazar Bay Consultation requested by Dr. Villanueva for an opinion regarding elevated Cr. My final recommendations will be communicated back to the requesting physician by way of shared Medical record or letter to requesting physician via US mail. ASSESSMENT/PLAN Elevated Cr 1.2 (most recent) previously 1.6 -diuretic induced, if edema is not improving with aggressive diuretics, than its not diuretic responsive and he should stop -he started diuretics (spironolactone, lasix, bumex metolazone) ~12 years ago for mild hypertension and LE edema. No hx of HF, CKD, Liver disease Plan -explained in depth the kidney physiology, hormone regulation and ability of the kidney to re-establish salt balance in steady state -advised stop all diuretics, monitor bp and weight and swelling at home, if BP elevated would choose mari/arb/ccb not a diuretic given complications from this (hypokalemia) -follow up as needed HPI: 69 year-old male referred by Dr. Villanueva for CKD3, evaluated in the endocrinology office for elevated aldosterone levels as a self-referral. He reportedly does a lot of his own research and has been on multiple diuretics and potassium replacement for many years, including triamterene thiazide, which he had recently stopped taking. He was on spironolactone but reported not much difference and breast tenderness. - At that visit, he also reported he had stage 3 kidney disease. [facility] but did not benefit much from that visit apparently. -He has no HF, Liver disease or Kidney disease, he take loop + thiazide daily for over 10 years and is fixated on salt related weight gain. Diagnostic Results: - Blood work: - Creatinine: 1.4 (reference range 0.7-1.3) - eGFR: >60 - Magnesium: 2.7 (elevated) - Renin: 11.6 - Aldosterone: 82 - PTH: 58 (within normal range) - BUN: 27 - Sodium: 137 - Bicarbonate: Normal - Imaging: - CT scan of the abdomen (2022): Shows a small calculus in the right kidney, small cyst in the right kidney, otherwise unremarkable. Current Medications: - Metolazone - Lorazepam - Supplements: Carnitine, chondroitin, B12, alpha lipoic acid, glucosamine, potassium citrate, and gabapentin. Liver function test are normal Echocardiogram in 03/2023 was showing normal LV size and function, estimated EF was 60%, stage I diastolic disorder. Current Outpatient Medications Medication Instructions ALPHA LIPOIC ACID ORAL 600 mg, DAILY ARGININE HCL, L-ARGININE, ORAL 1,800 mg, DAILY CALCIUM CARBONATE/VITAMIN D3 (VITAMIN D-3 ORAL) 4,000 Units, DAILY cholecalciferol, vitamin D3, (VITAMIN D3 ORAL) DAILY CHONDROITIN SULFATE A ORAL 1,500 mg, DAILY COENZYME [id number] ORAL 600 mg, 2 TIMES DAILY CPAP AT BEDTIME cyanocobalamin (vitamin B-12) 5,000 mcg Doxepin 6 mg tab ferrous sulfate (IRON) 325 mg (65 mg iron) tablet furosemide (LASIX) 40 mg, DAILY Gabapentin 300 mg ORAL Tab 1 tablet, DAILY GLUCOSAMINE HCL ORAL 1,500 mg, DAILY [id number]-mbs-[id number]-ast [id number] mg cap Lactobacillus acidophilus (PROBIOTIC ORAL) DAILY LEVOCARNITINE (CARNITINE ORAL) 1,000 mg, 2 TIMES DAILY LORazepam (ATIVAN) 1 mg, EVERY 6 HOURS NEEDED LYSINE ORAL 2,000 mg, DAILY Magnesium 250 mg, 2 TIMES DAILY metOLazone (ZAROXOLYN) 5 mg, DAILY MULTIVITAMIN TAB Take one(1) tablet daily by mouth OMEGA 3 550 MG CAP Take one(1) tablet daily by mouth potassium citrate ER (UROCIT-K) 10 mEq (1,080 mg) TbER 20 mEq, 2 TIMES DAILY Saccharomyces boulardii (FLORASTOR ORAL) DAILY triamterene-hydroCHLOROthiazide (MAXZIDE-25) 37.5-25 mg per tablet zinc sulfate (ZINC-220) 220 mg (50 mg zinc) capsule Social History Tobacco Use Smoking status: Never Smokeless tobacco: Never Substance Use Topics Alcohol use: No Drug use: No FAMILY HISTORY Problem Relation Age of Onset Allergies Mother Ischemic Heart Disease Father No Ocular Disease No Family History PAST SURGICAL HISTORY Procedure Laterality Date COLONOSCOPY FLX DX W/COLLJ SPEC WHEN PFRMD 12/04/05 PAST SURGICAL HISTORY OF polyp removed posterior off back PAST SURGICAL HISTORY OF skin tim benign PAST SURGICAL HISTORY OF keloid 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 @IODETAILS@ Intake/Output None GENERAL: no distress EXTREMITIES:Trace edema Obese DATA: Diagnostic tests reviewed for today's visit: Most recent labs and imaging results. CBC, Coags, BMP, Mg, Phos Liver Function, Amylase, AND Lipase ABGs SIGNATURE: Drew Rhodes, DO DATE: Manuel (more content not included)... [facility] 11-28-2024 Instructions Milton Villanueva MD - 11/28/2024 2:37 PM EST Please schedule an appointment with Nephrology documented in this encounter [facility] 11-28-2024 Note HNO ID: [id number] Author: MILTON VILLANUEVA MD Service: ? Author Type: Physician Type: Progress Notes Filed: 11/28/2024 18:08 Note Text: [facility] Initial Clinic Visit Note History of Present Illness: Mr. Baltazar Bay is a 68 year old male coming today as a new patient o me after self referral for evaluation of high aldosterone levels. He reports recommending his PCP to check aldosterone based on 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 He follows [facility] abstracts, [facility] and [facility] articles, and reports he thought the fluid retention was secondary to aldosterone and hence requested for these labs He has been on metolazone for 7 years for HTN, and on lasix 40 mg daily for 14 years Potassium 20 mEq 2 to 3 times daily - for the last 8 years He has been on triamterene- hydrochlorothiazide as well, which he reports to have stopped taking 3 weeks ago, as it did not help with fluid retention He was also on spironolactone in the past for 2 months, reports no much difference in fluid retention or blood pressure noted at that time either He has a hx of CKD stage 3a (eGFR 53 on the most recent CMP). Reports seeing nephrology locally with not much help, was advised to continue loop diuretics He is not on any typical antihypertensive medications at this time, and is only on loop diuretics which can lower BP anyway He also reports that he eats very low salt and if he increases the salt even by 100 mg, his weight increases Denied any arrhythmia/palpitations, nausea, vomiting, lightheadedness/dizziness, weight loss CT abdomen and pelvis with contrast at [facility] on 06/27/2023 shows unremarkable adrenal glands (scanned into system) Supplements include: Alpha lipoic acid 300 mg daily Krill oil 500 mg daily Lysine 500 mg daily Magnesium chelated 250 mg 2 tablets a day Vitamin B12 methylcobalamin 5000 mcg 3 times a week Vitamin D3 2000 units once daily Zinc 50 mg once daily Florastor once daily Probiotics once daily Past Medical History: PAST MEDICAL HISTORY Diagnosis Date Deafness in right ear External hemorrhoids without mention of complication 12/04/05 Hemorrhage of gastrointestinal tract, unspecified 12/04/05 Internal hemorrhoids without mention of complication 12/04/05 PMH - PAST MEDICAL HISTORY OF low testosterone blood test 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 Unspecified hemorrhoids without mention of complication Surgical History: PAST SURGICAL HISTORY Procedure Laterality Date COLONOSCOPY FLX DX W/COLLJ SPEC WHEN PFRMD 12/04/05 PAST SURGICAL HISTORY OF polyp removed posterior off back PAST SURGICAL HISTORY OF skin tim benign PAST SURGICAL HISTORY OF keloid 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 PAST SURGICAL HISTORY OF 05/24/15 removal of acoustic neuroma Family Medical History: FAMILY HISTORY Problem Relation Age of Onset Allergies Mother Ischemic Heart Disease Father No Ocular Disease No Family History Social History: Social History Tobacco Use Smoking status: Never Smokeless tobacco: Never Substance Use Topics Alcohol use: No Drug use: No Allergies: ALLERGIES Allergen Reactions Aspirin Rash Penicillins Rash Sulfamethoxazole Other: See Comments migraine Sulfasalazine Other: See Comments Current medications: Current Outpatient Medications Medication Sig metOLazone (ZAROXOLYN) 5 mg tablet Take 5 mg by mouth once daily. cholecalciferol, vitamin D3, (VITAMIN D3 ORAL) Take by mouth once daily. Lactobacillus acidophilus (PROBIOTIC ORAL) Take by mouth once daily. Saccharomyces boulardii (FLORASTOR ORAL) Take by mouth once daily. [id number]-[id number]-ast [id number] mg cap zinc sulfate (ZINC-220) 220 mg (50 mg zinc) capsule furosemide (LASIX) 40 mg tablet Take 40 mg by mouth once daily. Magnesium 250 mg tab Take 250 mg by mouth twice daily. LORazepam (ATIVAN) 1 mg tablet Take 1 mg by mouth every 6 hours as needed. LYSINE ORAL Take 2,000 mg by mouth once daily. ALPHA LIPOIC ACID ORAL Take 600 mg by mouth once daily. cyanocobalamin, vitamin B-12, 5,000 mcg/mL drop Dissolve 5,000 mcg under the tongue. CPAP daily at bedtime. potassium citrate ER (UROCIT-K) 10 mEq (1,080 mg) TbER Take 20 mEq by mouth two times a day. Gabapentin 300 mg ORAL Tab Take 1 tablet by mouth once daily. ferrous sulfate (IRON) 325 mg (65 mg iron) tablet Doxepin 6 mg tab triamterene-hydroCHLOROthiazide (MAXZIDE-25) 37.5-25 mg per tablet (Patient not taking: Reported on 10/30/2024) CHONDROITIN SULFATE A ORAL Take 1,500 mg by mouth once daily. (Patient not taking: Reported on 10/30/2024) LEVOCARNITINE (CARNITINE ORAL) Take 1,000 mg by mouth twice daily. (Patient not taking: Reported on 10/30/2024) ARGININE HCL, L-ARGININE, ORAL Take 1,800 mg by mouth once daily. (Patient not taking: Reported on 10/31/2022) GLUCOSAMINE HCL ORAL Take 1,500 mg by mo (more content not included)... [facility] 11-28-2024 History of Present illness Narrative [facility] Initial Clinic Visit Note History of Present Illness: Mr. Baltazar Bay is a 68 year old male coming today as a new patient o me after self referral for evaluation of high aldosterone levels. He reports recommending his PCP to check aldosterone based on 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 He follows [facility] abstracts, [facility] and [facility] articles, and reports he thought the fluid retention was secondary to aldosterone and hence requested for these labs He has been on metolazone for 7 years for HTN, and on lasix 40 mg daily for 14 years Potassium 20 mEq 2 to 3 times daily - for the last 8 years He has been on triamterene- hydrochlorothiazide as well, which he reports to have stopped taking 3 weeks ago, as it did not help with fluid retention He was also on spironolactone in the past for 2 months, reports no much difference in fluid retention or blood pressure noted at that time either He has a hx of CKD stage 3a (eGFR 53 on the most recent CMP). Reports seeing nephrology locally with not much help, was advised to continue loop diuretics He is not on any typical antihypertensive medications at this time, and is only on loop diuretics which can lower BP anyway He also reports that he eats very low salt and if he increases the salt even by 100 mg, his weight increases Denied any arrhythmia/palpitations, nausea, vomiting, lightheadedness/dizziness, weight loss CT abdomen and pelvis with contrast at [facility] on 06/27/2023 shows unremarkable adrenal glands (scanned into system) Supplements include: Alpha lipoic acid 300 mg daily Krill oil 500 mg daily Lysine 500 mg daily Magnesium chelated 250 mg 2 tablets a day Vitamin B12 methylcobalamin 5000 mcg 3 times a week Vitamin D3 2000 units once daily Zinc 50 mg once daily Florastor once daily Probiotics once daily Past Medical History: PAST MEDICAL HISTORY Diagnosis Date Deafness in right ear External hemorrhoids without mention of complication 12/04/05 Hemorrhage of gastrointestinal tract, unspecified 12/04/05 Internal hemorrhoids without mention of complication 12/04/05 PMH - PAST MEDICAL HISTORY OF low testosterone blood test 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 Unspecified hemorrhoids without mention of complication Surgical History: PAST SURGICAL HISTORY Procedure Laterality Date COLONOSCOPY FLX DX W/COLLJ SPEC WHEN PFRMD 12/04/05 PAST SURGICAL HISTORY OF polyp removed posterior off back PAST SURGICAL HISTORY OF skin tim benign PAST SURGICAL HISTORY OF keloid 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 PAST SURGICAL HISTORY OF 05/24/15 removal of acoustic neuroma Family Medical History: FAMILY HISTORY Problem Relation Age of Onset Allergies Mother Ischemic Heart Disease Father No Ocular Disease No Family History Social History: Social History Tobacco Use Smoking status: Never Smokeless tobacco: Never Substance Use Topics Alcohol use: No Drug use: No Allergies: ALLERGIES Allergen Reactions Aspirin Rash Penicillins Rash Sulfamethoxazole Other: See Comments migraine Sulfasalazine Other: See Comments Current medications: Current Outpatient Medications Medication Sig metOLazone (ZAROXOLYN) 5 mg tablet Take 5 mg by mouth once daily. cholecalciferol, vitamin D3, (VITAMIN D3 ORAL) Take by mouth once daily. Lactobacillus acidophilus (PROBIOTIC ORAL) Take by mouth once daily. Saccharomyces boulardii (FLORASTOR ORAL) Take by mouth once daily. vtvcw-zj-7-wmr-nsh-fnbcbav-ast [id number] mg cap zinc sulfate (ZINC-220) 220 mg (50 mg zinc) capsule furosemide (LASIX) 40 mg tablet Take 40 mg by mouth once daily. Magnesium 250 mg tab Take 250 mg by mouth twice daily. LORazepam (ATIVAN) 1 mg tablet Take 1 mg by mouth every 6 hours as needed. LYSINE ORAL Take 2,000 mg by mouth once daily. ALPHA LIPOIC ACID ORAL Take 600 mg by mouth once daily. cyanocobalamin, vitamin B-12, 5,000 mcg/mL drop Dissolve 5,000 mcg under the tongue. CPAP daily at bedtime. potassium citrate ER (UROCIT-K) 10 mEq (1,080 mg) TbER Take 20 mEq by mouth two times a day. Gabapentin 300 mg ORAL Tab Take 1 tablet by mouth once daily. ferrous sulfate (IRON) 325 mg (65 mg iron) tablet Doxepin 6 mg tab triamterene-hydroCHLOROthiazide (MAXZIDE-25) 37.5-25 mg per tablet (Patient not taking: Reported on 10/30/2024) CHONDROITIN SULFATE A ORAL Take 1,500 mg by mouth once daily. (Patient not taking: Reported on 10/30/2024) LEVOCARNITINE (CARNITINE ORAL) Take 1,000 mg by mouth twice daily. (Patient not taking: Reported on 10/30/2024) ARGININE HCL, L-ARGININE, ORAL Take 1,800 mg by mouth once daily. (Patient not taking: Reported on 10/31/2022) GLUCOSAMINE HCL ORAL Take 1,500 mg by mouth once daily. (Patient not taking: Reported on 10/30/2024) COENZYME [id number] ORAL Take 600 mg by mouth twice daily. (Patient not taking: Reported on 10/30/2024) CALCIUM CARBONATE/VITAMIN D3 (VITAMIN D-3 ORAL) Take 4,000 Units by mouth once daily. (Patient not taking: Reported on 10/31/2022) MULTIVITAMIN TAB Take one(1) tablet daily by mouth (Patient not taking: Reported on 10/30/2024) OMEGA 3 550 MG CAP Take one(1) tablet daily by mouth (Patient not taking: Reported on 10/30/2024) No current facility-administered medications for this visit. Review of Systems: 10 point ROS was reviewed and negative unless indicated in the HPI Physical exam: BP 138/81 Pulse 78 Wt 115 kg (253 lb 9.6 oz) SpO2 97% BMI 40.93 kg/m General Appearance: Well appearing, alert, in no acute distress, well-hydrated, well nourished, obese body habitus Skin: Skin color, texture, turgor normal, no suspicious rashes or lesions. Eyes: Anicteric sclera. Extraocular movements are intact. Lungs: unlabored breathing on room air Heart: Regular rate and rhythm Abdomen: central obesity >peripheral. Extremities: No deformities. Has bilateral LE edema Musculoskeletal: No joint swelling, deformity, or tenderness. Peripheral Pulses: Normal. Neurologic: Gait normal. Previous laboratory results: OSH 10/16/2024, 2:27 PM CMP: Sodium-137 mmol/L (136-145) Potassium 3.7 mmol/L (3.5-5.1) Chloride 101 mmol/L (98-110) BUN 27 mg/dL (7-18) Creatinine 1.41 mg/dL (0.7-1.3) Glucose 136 mg/dL (74-106) Calcium 9.5 mg/dL (8.5-10.1) Renin 11.633 ng/mL/h (0.167-5.38) Aldosterone 82 ng/dL (0.0-30.0) ACTH 21.2 pg/mL (7.2-63.3) Cortisol 7.7 ug/dl 08/20/2024 Magnesium 2.7 mg/dL (1.6-2.6) AST 22U/L (15-37) ALT 38U/L (16-61) Alkaline phosphatase 75U/L (45-117) Total protein 8.1 g/dL (6.4-8.2) Albumin 3.2 g/dL (3.2-5.0) Globulin 4.9 g/dL (2.2-4.2) Albumin/globulin ratio: 0.7 (0.9-2.4) 25-hydroxy vitamin D 46.6 ng/dL PTH intact 58.7 pg/mL (18.4-80.1) Imaging: OSH CT abdomen and pevis w IV contasrt: 06/27/2023: Adrenal glands: unremarkable Impression: No acute findings Colonic diverticulosis without evidence of acute diverticulitis. Small umbilical hernia containing minimal anterior wall small bowel without evidence of complication. Right nephrolithiasis without hydronephrosis. Enlarged prostate. Echocardiogram in 03/2023 was showing normal LV size and function, estimated EF was 60%, stage I diastolic disorder. ASSESSMENT/PLAN: Elevated Aldosterone levels: I discussed with patient that the aldosterone levels might be possibly high due to using 3 different antidiuretics when the labs were done- metolazone, lasix and HCTZ, and these can increase the ARR, if any. In his case ARR is only 7 While Triamterene is a potassium sparing diuretic, it can decrease ARR I suggested that there is no significant concern that aldosterone levels abnormally high in this case as he thinks that aldosterone levels are causing fluid retention, as this should have been improved while on triamterene or atleast on spironolactone which is MR antagonist Liver function test are normal, not causing edema Echocardiogram in 03/2023 was showing normal LV size and function, estimated EF was 60%, stage I diastolic disorder. He has CKD, but I am not sure if the renal function is that significantly low to result in fluid retention that he is claiming I advised to him to repeat labs in 3 weeks from now Although cortisol of 7.7 at 2.30 pm is normal, I also ordered ACTH, cortisol am to make sure - advised doing all labs on fasting at 8 am, after holding supplements for atleast 5 days All questions welcomed and answered to satisfaction Patient understands and agrees with the plan discussed. Consult to nephrology at [facility] given per his request Follow up if labs are abnormal Patient advised to contact clinic if in case no reponse from clinic in 10 days to 2 weeks after labs are resulted I spent a total of 75 minutes on the date of the service which included preparing to see the patient, [id number] patient care, completing clinical documentation, obtaining and/or reviewing separately obtained history, performing a medically appropriate examination, counseling and educating the patient/family/caregiver, ordering medications, tests, or procedures, independently interpreting results (not separately reported), and communicating results to the patient/family/caregiver. SIGNATURE: Milton Villanueva MD DATE of SERVICE: November 28, 2024 TIME of SERVICE: 2:14 PM documented in this encounter [facility] 10-30-2024 Note HNO ID: [id number] Author: KIM ROSE OD Service: ? Author Type: DONOR SERVICES COORDINATOR Type: Progress Notes Filed: 10/30/2024 16:38 Note Text: 1. Blurred vision, bilateral Stable ocular health, both eyes Continue to monitor 2. Monocular exotropia with other noncomitancies, left eye 3. Hypertropia of left eye Finalize spec rx for distance bifocals and intermediate/near with stable prism 4. Dry eye syndrome of both eyes Minimal symptoms Monitor and use tears prn Follow-up in 1 year or sooner as needed Kim Rose, OD October 30, 2024 4:35 PM [facility] 10-30-2024 History of Present illness Narrative 1. Blurred vision, bilateral Stable ocular health, both eyes Continue to monitor 2. Monocular exotropia with other noncomitancies, left eye 3. Hypertropia of left eye Finalize spec rx for distance bifocals and intermediate/near with stable prism 4. Dry eye syndrome of both eyes Minimal symptoms Monitor and use tears prn Follow-up in 1 year or sooner as needed Kim Rose, OD October 30, 2024 4:35 PM documented in this encounter [facility] 06-16-2024 Note [facility] Medical Records Department [facility] [place] [address] History Physical Exam 06/16/24 0814 MR#: [id number] Acct: [id number] Name: BALTAZAR BAY Rep #: [id number] : 1955 68 From: Ben Emmanuel DO PCP: Dr. Tony Kay MD Status:[facility] Location: [place] [address] History and Physical Date of Admission: 06/16/24 JACKIE BAY, is a 68 M who presents to the office today for follow up. PCP OV with leg pain for three weeks, HTN. Notes recurrent diverticulitis. ?CT abd/pel 01.28.18???renal calculi, obstructive with inflammation; colonic diverticulosis. ?Biochemical 6.30.23???BMP without pertinent abnormality ? CRP H10.3 ?Biochemical 05.21.23???BMP, B1, Vit D25, folate without pertinent abnormality ? B6 H120.1, B12 H1617 *BGI established 06.01.23 reports many episodes of diverticulitis. BM occur daily with harder stool but no difficulty with movement and feels complete evacuation. Reports last colonoscopy 2016 with diverticulosis and no polyps. Hemorrhoidectomy 2011. FH diverticulitis with mother eventually requiring colostomy. ?Biochemical???CMP, LFT, ferritin, GAME, GUS (Bglobulin H1.4), ANCA, SYLVIA comp, celiac, IBD without pertinent abnormality ? ESR H39, CRP H12.5 ? Stool calprotectin? , lactoferrin, blood WNL? increased total fat, elastase L74 Contact 06.14.23 recommending Creon for low elastase; having LLQ discomfort and loose stools. ?CT abd/pel 06.28.23???hepatic fatty infiltration; real calculus and cyst; small umbilical hernia with short segment of small bowel and fat; diverticulosis; enlarged prostate. ? OV 11.26.23 Pt states he has has LLQ pain the last 4 weeks. Is not as severe as it was previously but still bothers him. Did have one episode of diarrhea when the pain started but has not had any since. OV 05.30.24 pt reports continued abd pain. ROS Const Constitutional: No fatigue, fever(s) or weight change ENT ENT: No difficulty swallowing Gastro GI: Positive for abdominal pain; No belching, bloating, change in bowel habits, change in stool character, coffee ground emesis, constipation, cramping, diarrhea, heartburn, difficulty swallowing, feeling full early, excessive flatus, incontinent of stools, Vomiting blood/hematemesis, Blood in stool, loose stools, Black,tarry stools, nausea/dyspepsia, pain with swallowing, vomiting or other Musc Musculoskeletal: Positive for leg pain at night; No joint pain Skin Skin: No yellowing of the eye or itchy eyes Psych Psychiatric: No anxiety and No depression Endo Endocrine: No fatigue or weight change Aller/Imm Allergy/Immunologic: No itchy eyes Mauro/Lymp Hematologic/Lymphatic: No easy bleeding or easy bruising Exam Const General: cooperative and comfortable Nutritional Appearance: average body habitus and well nourished [facility] Head: normal to inspection Ears: hearing grossly normal bilaterally Nose: external nose normal Face and sinus: normal facial exam Mouth: oral mucosae normal Throat: posterior oropharynx normal Eyes General: appearance normal, both eyes and all related structures Neck Neck: normal visual inspection Chest Chest palpation inspection: normal inspection of the chest and normal palpation of entire chest wall Resp Effort Inspection: normal respiratory effort Auscultation: Bilateral: Clear to Auscultation Cardio Palpation: normal PMI Rate: regular rate Rhythm: regular rhythm GI Inspection: normal to inspection Auscultation: normal bowel sounds Percussion: normal to percussion Palpation: no hepatosplenomegaly Skin General: no rashes or lesions noted Neuro General: patient alert Extrem General: normal to inspection Psych Affect: normal affect Assessment and Plan Assessment and Plan (1) Diverticulitis: Status: Chronic (2) Diarrhea: Status: Acute Qualifiers: Diarrhea type: functional diarrhea Qualified Code(s): K59.1 - Functional diarrhea Plan: 67-year-old gentleman with recurrent left lower quadrant pain followed by intermittent diarrhea. He was previously diagnosed with diverticulitis. I explained to him that the natural course of acute diverticulitis did not involve diarrhea. He denies any tenesmus denies any urgency denies any crampy abdominal pain which would be more consistent with diverticulitis. Also denied any fevers, chills, nausea or vomiting ju (more content not included)... [facility] 11-10-2022 History of Present illness Narrative (H26.491) 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, right [...] artificial tears as needed Follow-up as needed Kim Rose, OD November 10, 2022 1:05 PM documented in this encounter [facility] 11-01-2022 History of Present illness Narrative Assessment and Plan 1. Blurred [...] agree with all of its relevant components. Sung Carney MD documented in this encounter [facility] 11-01-2022 Instructions Sung Carney MD - 11/01/2022 2:09 PM EST Images from the original note were not included. documented in this encounter [facility] 10-31-2022 History of Present illness Narrative 1. Posterior capsular opacification visually [...] lenses d/t prism needs Follow-up with Dr. Carney in 1-2 weeks for possible yag cap right eye Kim Rose, OD October 31, 2022 4:23 PM documented in this encounter [facility] 09-12-2022 History of Present illness Narrative Assessment and Plan 1. Blurred [...] agree with all of its relevant components. 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, left eye [facility] Diagnosis 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, right- Primary [facility]* Diagnosis 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, right- Primary 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 After-cataract, obscuring vision Blurred vision, bilateral Other specified visual disturbances 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, left eye Dry eye syndrome of both eyes [facility] noteNo assessment information availableWC[facility] Work Phone: Evaluation note* Diagnosis Onset Date Resolution Status Keloid scar acute Neoplasm of uncertain behavior of skin acute Keloid scar acute Diarrhea acute Diverticulitis chronic [facility] Work Phone: Evaluation note* Diagnosis Onset Date Resolution Status Keloid scar acute Neoplasm of uncertain behavior of skin acute Keloid scar acute Diarrhea acute Diverticulitis chronic Neoplasm of uncertain behavior of skin acute Epidermal inclusion cyst acu te [facility] Work Phone: Evaluation note* Diagnosis Onset Date Resolution Status Keloid scar acute Neoplasm of uncertain behavior of skin acute Keloid scar acute Diarrhea acute Diverticulitis chronic Neoplasm of uncertain behavior of skin acute Epidermal inclusion cyst acu te Epidermal inclusion cyst acu te [facility] Work Phone: Evaluation note* Diagnosis Onset Date Resolution Status Neoplasm of uncertain behavior of skin acute Epidermal inclusion cyst acu te Epidermal inclusion cyst acu te [facility] Work Phone: Evaluation note* Diagnosis Onset Date Resolution Status Epidermal inclusion cyst acu te Diarrhea acute Diverticulitis chronic [facility] Work Phone: Evaluation note* Diagnosis Onset Date Resolution Status Diarrhea acute Diverticulitis [facility] Work Phone: Evaluation note* Diagnosis Blurred vision, bilateral- Primary Other specified visual disturbances Monocular exotropia with other noncomitancies, left eye Hypertropia of left eye Dry eye syndrome of both eyes documented in this encounter [facility] note* Diagnosis Low serum cortisol level- Primary Glucocorticoid deficiency CKD stage 3a, GFR 45-59 ml/min ([facility]) Hypertension, unspecified type documented in this encounter [facility] note* Diagnosis Elevated serum creatinine- Primary Other nonspecific findings on examination of blood documented in this encounter [facility] note* Diagnosis Hypertension, unspecified type- Primary documented in this encounter [facility] for referral (narrative)No reason for referral information availableWCleveland Clinic [facility] Work Phone: Advance Directives No Advanced Directives Records FoundDocuments on File Type Date Recorded 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 Advance Directive(s) 05/27/2015 5:37 PM Advance Directive Response Recorded Date/ Time Living Will No January 28, 2018 4:14am Power of Donor Services Coordinator No January 28 4:14am Advance Directive Response Recorded Date/ Time Living Will No January 28, 2018 3:14am Power of Donor Services Coordinator No January 28 3:14am Documents on File Type Date Recorded 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 Advance Directive(s) 05/27/2015 5:37 PM Medications Administered Section Active Administered Medications - up to 3 most recent administrations Medication Order MAR Action Action Date Dose Rate Site PHENYLephrine 2.5 % 1 Drop (AK-DILATE, KYLE-SYNEPHRINE) 1 Drop, BOTH EYES, DIRECTED, Starting on [...] Given 11/10/2022 1:00 PM EST 1 Drop Chief Complaint and Reason for Visit Chief Complaint PAIN IN RIGHT FOOT Chief Complaint PAIN IN RIGHT FOOT EORDER Other specified soft tissue disorders Chief Complaint PAIN IN RIGHT FOOT EORDER Other specified soft tissue disorders CONSULT-MULTIPLE CYSTS LASER Consult E ORDER Reason for Visit Keloid scar Neoplasm of uncertain behavior of skin Keloid scar Diarrhea Diverticulitis Chief Complaint EORDER Other specified soft tissue disorders CONSULT-MULTIPLE CYSTS LASER Consult E ORDER Diverticulitis of intestine, part unspecified, wit Reason for Visit Keloid scar Neoplasm of uncertain behavior of skin Keloid scar Diarrhea Diverticulitis Chief Complaint CONSULT-MULTIPLE CYS TS LASER Consult E ORDER Diverticulitis of intestine, part unspecified, wit Excision cyst left chin intermediat Excision cyst left chin intermediat post op #1 excision of facial cyst Reason for Visit Keloid scar Neoplasm of uncertain behavior of skin Keloid scar Diarrhea Diverticulitis Neoplasm of uncertain behavior of skin Epidermal inclusion cyst Chief Complaint CONSULT-MULTIPLE CYS TS LASER Consult E ORDER Diverticulitis of intestine, part unspecified, wit Excision cyst left chin intermediat Excision cyst left chin intermediat post op #1 excision of facial cyst follow up EORDER Reason for Visit Keloid scar Neoplasm of uncertain behavior of skin Keloid scar Diarrhea Diverticulitis Neoplasm of uncertain behavior of skin Epidermal inclusion cyst Epidermal inclusion cyst Chief Complaint Excision cyst left c hin intermediat Excision cyst left chin intermediat post op #1 excision of facial cyst follow up EORDER S/O S/O Reason for Visit Neoplasm of uncertai n behavior of skin Epidermal inclusion cyst Epidermal inclusion cyst Chief Complaint follow up EORDER S/O S/O 6 MO FU Reason for Visit Epidermal inclusion cyst Diarrhea Diverticulitis Chief Complaint EORDER S/O S/O 6 MO FU Reason for Visit Diarrhea Diverticulitis Chief Complaint S/O 6 MO FU Reason for Visit Diarrhea Diverticulitis Chief Complaint Admit Date NEED ORDER January 03, 2025 9:5 5am Chief Complaint Admit Date NEED ORDER January 03, 2025 9:5 5am FATTY INFILTRATION January 10, 2025 7:51 am Chief Complaint Admit Date NEED ORDER January 03, 2025 9:5 5am FATTY INFILTRATION January 10, 2025 7:51 am RENAL CYST February 04, 2025 1:4 4pm Chief Complaint Admit Date NEED ORDER January 03, 2025 9:5 5am FATTY INFILTRATION January 10, 2025 7:51 am RENAL CYST February 04, 2025 1:4 4pm ADD CXR March 10, 2025 9:34a m Family History No Family History Records Found Relationship Condition Age at Onset Recorded Date/T chris uncle Peripheral neuropathy Unknown brother Neuropathy Unknown Status post four ves gibran coronary artery bypass Unknown Obstructive sleep apnea syndrome Unknown father Cardiac disease Unknown grandmother Coronary artery disease Unknown grandfather Coronary artery disease Unknown Myocardial infarction Unknown aunt Dementia Unknown aunt Malignant neoplasm of breast Unknown Summary Purpose Additional Source Comments Source Comments (unrecognize d section and content) In the event this informatio n is protected by the Federal Confidentiality of Alcohol and Drug Abuse Patient Records regulations: The Federal rules restrict any use of the information to criminally investigate or prosecute any alcohol or drug abuse patient.[facility] the event this information is protected by the Federal Confidentiality of Alcohol and Drug Abuse Patient Records regulations: The Federal rules restrict any use of the information to criminally investigate or prosecute any alcohol or drug abuse patient.[facility] HealthIn the event this information is protected by the Federal Confidentiality of Alcohol and Drug Abuse Patient Records regulations: The Federal rules restrict any use of the information to criminally investigate or prosecute any alcohol or drug abuse patient.[facility] HealthIn the event this information is protected by the Federal Confidentiality of Alcohol and Drug Abuse Patient Records regulations: The Federal rules restrict any use of the information to criminally investigate or prosecute any alcohol or drug abuse patient.[facility] HealthIn the event this information is protected by the Federal Confidentiality of Alcohol and Drug Abuse Patient Records regulations: The Federal rules restrict any use of the information to criminally investigate or prosecute any alcohol or drug abuse patient.[facility]In the event this information is protected by the Federal Confidentiality of Alcohol and Drug Abuse Patient Records regulations: The Federal rules restrict any use of the information to criminally investigate or prosecute any alcohol or drug abuse patient.[facility] HealthIn the event this information is protected by the Federal Confidentiality of Alcohol and Drug Abuse Patient Records regulations: The Federal rules restrict any use of the information to criminally investigate or prosecute any alcohol or drug abuse patient.[facility] HealthIn the event this information is protected by the Federal Confidentiality of Alcohol and Drug Abuse Patient Records regulations: The Federal rules restrict any use of the information to criminally investigate or prosecute any alcohol or drug abuse patient.[facility] the event this information is protected by the Federal Confidentiality of Alcohol and Drug Abuse Patient Records regulations: The Federal rules restrict any use of the information to criminally investigate or prosecute any alcohol or drug abuse patient.[facility] Reason for Visit (unrecogniz ed section and content) Reason Comments Blurred Vision Both Eyes 6 months Difficulty Reading Both Eyes Dry Eye(s) Both Eyes Tearing Both Eyes 6 months Reason Comments Follow Up For Blurry vision Difficulty Reading Both Eyes Reason Comments Blurred Vision Both Eyes Continues Reason Comments Follow Up For 1 week YAG right eye and dilated exam Reason Comments Yearly Exam Reason Comments New Patient Aldosteronism Reason Comments Follow Up Specialty Diagnoses / Procedures Referred By Dc t Referred To Contact Nephrology Diagnoses CKD stage 3a, GFR 45-59 ml/min ([facility]) Procedures CONSULT TO NEPHROLOGY OFFICE/OUTPATIENT NEW HIGH MDM 60 MINUTES Milton Villanueva MD [address] [place] [address] Phone: tel: fax: Referral ID Status Reason Start Date Expiration Date V isits Requested Visits Authorized [id number] Closed PCP Requested Referral 11/28/2024 11/28/2025 1 1 Care Teams (unrecognized sec tion and content) Sheet Rock Layer Relationship Specialty Start Date End Date Tony Kay MD PCP - General Family Medicine 10/23/11 Sheet Rock Layer Relationship Specialty Start Date End Date Tony Kay MD PCP - General Family Medicine 10/23/11 Sheet Rock Layer Relationship Specialty Start Date End Date Tony Kay MD PCP - General Family Medicine 10/23/11 Sheet Rock Layer Relationship Specialty Start Date End Date Tony Kay MD PCP - General Family Medicine 10/23/11 Team Status: Active Member Role Status Dates Dr. Tony Kay MD Family Provider Active Dr. Tony Kay MD Primary Care Provider Active Team Status: Inactive Member Role Status Dates Dr. Tony Kay MD Primary Care Provider, Attending Darian huddleston Active Team Status: Active Member Role Status Dates Dr. Tony Kay MD Primary Care Provider, Referring Darian huddleston Active Dr. Bulmaro Childers MD Attending Provider Active Team Status: Active Member Role Status Dates Dr. Tony Kay MD Primary Care Provider, Attending Darian huddleston Active Team Status: Inactive Member Role Status Dates Dr. Tony Kay MD Primary Care Provide r, Attending Provider, Referring Provider Active Team Status: Active Member Role Status Dates Dr. Tony Kay MD Primary Care Provider Active Dr. Jere Fields MD Attending Provider, Referring Pro vider Active Team Status: Inactive Member Role Status Dates Dr. Tony Kay MD Primary Care Provider Active Dr. Tony FLAHERTY MD Attending Provider Active Team Status: Inactive Member Role Status Dates Dr. Tony Kay MD Referring Provider Active Dr. Ben Emmanuel DO Attending Provider Active Team Status: Inactive Member Role Status Dates Dr. Tony Kay MD Referring Provider Active Dr. Susan Leo MD Attending Provider Active Team Status: Inactive Member Role Status Dates Mary Bains RACK LOADER, RACK LOADER-C Attending Provider Active Team Status: Inactive Member Role Status Dates Dr. Tony Kay MD Primary Care Provider Active Dr. Ben Emmanuel DO Attending Provider, Referring Provider Active Team Status: Inactive Member Role Status Dates Dr. Tony Kay MD Primary Care Provider, Referring P rovider Active Dr. Susan Leo MD Attending Provider Active Team Status: Active Member Role Status Dates Dr. Tony Kay MD Primary Care Provider Active Dr. Susan Leo MD Attending Provid er, Referring Provider, Other Provider Active Team Status: Inactive Member Role Status Dates Dr. Tony Kay MD Primary Care Provider Active Dr. Susan Leo MD Attending Provider, Referring Provider Active Team Status: Inactive Member Role Status Dates Dr. Ben Emmanuel DO Attending Provider Active Dr. Tony Kay MD Primary Care Provider, Referring P rovider Active Team Status: Inactive Member Role Status Dates Dr. Tony Kay MD Primary Care Provider Active Dr. Pepito Corona MD Attending Provider Active [place] [employer] Relationship Specialty Start Date End Date Tony Kay MD PCP - General Family Medicine 10/23/11 [place] [employer] Relationship Specialty Start Date End Date Tony Kay MD PCP - General Family Medicine 10/23/11 [place] [employer] Relationship Specialty Start Date End Date Tony Kay MD PCP - General Family Medicine 10/23/11 Team Status: Inactive Member Role Status Dates Dr. Tony Kay MD Primary Care Provider Active Start: August 20, 2024 End: August 20, 2024 Dr. Tony Kay MD Attending Provider Active St art: August 20, 2024 End: August 20, 2024 Dr. Tony Kay MD Referring Provider Active St art: August 20, 2024 End: August 20, 2024 Team Status: Inactive Member Role Status Dates Dr. Tony Kay MD Primary Care Provider Active Start: October 16, 2024 End: October 16, 2024 Dr. Tony Kay MD Attending Provider Active St art: October 16, 2024 End: October 16, 2024 Dr. Tony Kay MD Referring Provider Active St art: October 16, 2024 End: October 16, 2024 Team Status: Inactive Member Role Status Dates Dr. Tony Kay MD Primary Care Provider Active Start: December 01, 2024 End: December 01, 2024 Dr. Tony Kay MD Attending Provider Active St art: December 01, 2024 End: December 01, 2024 Dr. Tony Kay MD Referring Provider Active St art: December 01, 2024 End: December 01, 2024 Team Status: Active Member Role Status Dates Dr. Tony Kay MD Primary Care Provider Active Start: December 04, 2024 Dr. Tony Kay MD Attending Provider Active St art: December 04, 2024 Dr. Tony Kay MD Referring Provider Active St art: December 04, 2024 Team Status: Inactive Member Role Status Dates Dr. Tony Kay MD Primary Care Provider Active Start: December 04, 2024 End: December 04, 2024 Dr. Tony Kay MD Attending Provider Active St art: December 04, 2024 End: December 04, 2024 Dr. Tony Kay MD Referring Provider Active St art: December 04, 2024 End: December 04, 2024 Team Status: Inactive Member Role Status Dates Dr. Tony Kay MD Primary Care Provider Active Start: January 03, 2025 End: January 03, 2025 Dr. Tony Kay MD Attending Provider Active St art: January 03, 2025 End: January 03, 2025 Dr. Tony Kay MD Referring Provider Active St art: January 03, 2025 End: January 03, 2025 [place] Relationship Specialty Start Date End Date Tony Kay MD PCP - [facility] 10/23/11 Team Status: Active Member Role Status Dates Dr. Tony Kay MD Primary Care Provider Active Team Status: Inactive Member Role Status Dates Dr. Tony Kay MD Primary Care Provider Active Start: January 10, 2025 End: January 10, 2025 Dr. Tony Kay MD Attending Provider Active St art: January 10, 2025 End: January 10, 2025 Dr. Tony Kay MD Referring Provider Active St art: January 10, 2025 End: January 10, 2025 Team Status: Inactive Member Role Status Dates Dr. Tony Kay MD Primary Care Provider Active Start: February 04, 2025 End: February 04, 2025 Dr. Tony Kay MD Attending Provider Active St art: February 04, 2025 End: February 04, 2025 Dr. Tony Kay MD Referring Provider Active St art: February 04, 2025 End: February 04, 2025 Team Status: Active Member Role Status Dates Dr. Tony Kay MD Primary Care Provider Active Start: February 07, 2025 Dr. Tony Kay MD Attending Provider Active St art: February 07, 2025 Dr. Tony Kay MD Referring Provider Active St art: February 07, 2025 Team Status: Inactive Member Role Status Dates Dr. Tony Kay MD Primary Care Provider Active Start: February 12, 2025 End: February 12, 2025 Dr. Tony Kay MD Attending Provider Active St art: February 12, 2025 End: February 12, 2025 Dr. Tony Kay MD Referring Provider Active St art: February 12, 2025 End: February 12, 2025 [place] Relationship Specialty Start Date End Date Tony Kay MD PCP - [facility] 10/23/11 Team Status: Inactive Member Role Status Dates Dr. Tony Kay MD Primary Care Provider Active Start: February 23, 2025 End: February 23, 2025 Dr. Tony Kay MD Attending Provider Active St art: February 23, 2025 End: February 23, 2025 Dr. Tony Kay MD Referring Provider Active St art: February 23, 2025 End: February 23, 2025 Team Status: Inactive Member Role Status Dates Dr. Tony Kay MD Primary Care Provider Active Start: February 26, 2025 End: February 26, 2025 Dr. Tony Kay MD Attending Provider Active St art: February 26, 2025 End: February 26, 2025 Dr. Tony Kay MD Referring Provider Active St art: February 26, 2025 End: February 26, 2025 Team Status: Inactive Member Role Status Dates Dr. Tony Kay MD Primary Care Provider Active Start: February 07, 2025 End: February 07, 2025 Dr. Tony Kay MD Attending Provider Active St art: February 07, 2025 End: February 07, 2025 Dr. Tony Kay MD Referring Provider Active St art: February 07, 2025 End: February 07, 2025 Team Status: Inactive Member Role Status Dates Dr. Tony Kay MD Primary Care Provider Active Start: March 10, 2025 End: March 10, 2025 Dr. Tony Kay MD Attending Provider Active St art: March 10, 2025 End: March 10, 2025 Dr. Tony Kay MD Referring Provider Active St art: March 10, 2025 End: March 10, 2025 Team Status: Active Member Role Status Dates Dr. Tony Kay MD Primary Care Provider Active Start: March 13, 2025 Dr. Tony Kay MD Attending Provider Active St art: March 13, 2025 Dr. Tony Kay MD Referring Provider Active St art: March 13, 2025 Goals (unrecognized section and content) Goals may be documented in a n alternate sectionGoals may be documented in an alternate sectionGoals may be documented in an alternate sectionGoals may be documented in an alternate sectionGoals may be documented in an alternate sectionGoals may be documented in an alternate sectionGoals may be documented in an alternate sectionGoals may be documented in an alternate sectionGoals may be documented in an alternate sectionGoals may be documented in an alternate sectionGoals may be documented in an alternate sectionGoals may be documented in an alternate sectionGoals may be documented in an alternate sectionGoals may be documented in an alternate sectionGoals may be documented in an alternate sectionGoals may be documented in an alternate sectionGoals may be documented in an alternate sectionGoals may be documented in an alternate sectionGoals may be documented in an alternate sectionGoals may be documented in an alternate sectionGoals may be documented in an alternate sectionGoals may be documented in an alternate sectionGoals may be documented in an alternate section (unrecognized sect ion and content) No Status Records FoundNo Status Records Found INFORMATION SOURCE (unrecogn ized section and content) DATE CREATED AUTHOR 03/11/2025 [facility] DATE CREATED AUTHOR AUTHOR'S CRISTAL CUEVAS 03/31/2025 [facility] FOR RECORDS PERTAINING TO PATIENTS WHO ARE [...] BE BASED ON THE PRIMARY CLINICAL RECORDS. [employer]. provides no warranty or guarantee of the accuracy or completeness of information in this document.
== END | disposition home or self-care (01) ==
LOC: MTRAD 10:24
PROVIDERS: PCP Family Medicine; Referring Provider Family Medicine; Visit Provider Family Medicine
DX: R07.89 Other chest pain (principal)
CPT/HCPCS: 71046

== ENCOUNTER → 2025-03-31 | Outpatient (CLI) | payer MEDICARE, OTHER, SELFPAY ==
--- OUTSIDE RECORDS SUMMARY | 2025-03-31 21:38 | XMS RPT_ITS | CCD ---
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 Tony Kay Primary Care Provider [phone] Tony Kay Referring Provider 1([facility])[phone] Dr. Bulmaro Childers Attending Provider 1([facility])[phone] Dr. Jere Fields Attending Provider 1([facility])[phone] Jere Fields Referring Provider 1([facility])[phone] Susan Leo Attending Provider 1([facility])[phone] Herson GUSSET MAKER, GUSSET MAKER-Barb Dorsey Attending Provider Dr. Ben Emmanuel Attending Provider 1([facility])[phone] Tony Kay Primary Care Provider 1([facility])[phone] Tony Kay Referring Provider 1([facility])[phone] Dr. Tony Kay Referring Provider 1([facility])[phone] Susan Leo Attending Provider 1([facility])[phone] Herson GUSSET MAKER, GUSSET MAKER-Barb Dorsey Attending Provider Dr. Ben Emmanuel Attending Provider 1([facility])[phone] Tony Kay Primary Care Provider 1([facility])[phone] Susan Leo Referring Provider 1([facility])[phone] Dr. Susan Leo Other Provider 1([facility])[phone] Susan Leo Attending Provider 1([facility])[phone] Dr. Tony Kay Referring Provider Dr. [...] Tony Referring Unavailable Kay, Tony Attending Unavailable Friend, Ben Consulting Unavailable Kay, [...] Alvarez Attending Unavailable Kay, Tony Attending Unavailable Aky, Tony Referring Unavailable Kay, Tony Primary Care [...] aspirin; Translations: [ASPIRIN] drug allergy 6 Rash [facility] Work Phone: (2 sources) penicillin v drug allergy 7 [facility] Work Phone: (8 sources) sulfaSALAzine; Translations: [SULFASALAZINE] drug allergy 7 Other: See Comments [facility] Work Phone: (8 sources) Penicillins; Translations: [PENICILLINS] Propensity to adverse reactions 6 Rash [facility] Work Phone: (10 sources) Sulfamethoxazole ; Translations: [SULFAMETHOXAZOL E] Drug Allergy 2 Other: See Comments [facility] (20 sources) Penicillins Allergy to substance 8 Unknown [facility] (20 sources) Sulfonamides (Antibiotic) Propensity to adverse reactions 8 MIGRAINES [facility] (2 sources) Penicillins Propensity to adverse reactions 6 Rash [facility] (1 source) Aspirin Drug Allergy 4 [facility] (1 source) Penicillins Drug allergy (disorder) 4 [facility] (1 source) Sulfonamides (Antibiotic) Drug allergy (disorder) 4 [facility] Medications Current Medications Medication Drug Class(es) [...] CAPS One tablet by mouth daily CHOLECALCIFEROL [id number] Raul Palacios MD cholecalciferol, vitamin D3, (VITAMIN [...] mg by phyllis th once daily. COENZYME [id number]-[id number]-[id number] ORAL (9 sources) take 600 mg by mouth twice daily COENZYME [id number]-O-KCWEMCQDO ORAL Take 600 mg by mouth twice daily. Active take 600 mg by mouth twice daily COENZYME [id number]-[id number] ORAL Take 600 mg by mouth twice [...] tablet by mouth three times daily FUROSEMIDE [id number] Raul Palacios MD Comment on above: Take [...] Active Start: 06-11-2024 take 2 tablets by [facility] twice daily Potassium Chloride 20 mEq [...] CAPS One tablet by mouth daily CYANOCOBALAMIN [id number] Raul Palacios MD cyanocobalamin, vitamin B-12, 5,000 [...] TABS One tablet by mouth daily ANASTROZOLE [id number] Raul Palacios MD Comment on above: Take [...] One tablet by mouth daily ARGININE HCL [id number] Raul Palacios MD CHONDROITIN SULFATE A (CHONDROITIN [...] by mouth daily CHONDROITIN SULFATE A CAPS [id number] Raul Palacios MD doxycycline hyclate 100 mg [...] by mouth daily OMEGA-3 FATTY ACIDS CAPS [id number] Raul Palacios MD glucosamine sulfate 750 mg [...] tablet by mouth daily GLUCOSAMINE SULFATE CAPS 75808761150 Raul Palacios MD take 1500 mg by [...] One tablet by mouth daily LYSINE TABS 20884785199 Raul Palacios MD take 2000 mg by [...] One tablet by mouth daily MAGNESIUM TABS [id number] Raul Palacios MD take 1 tablet by [...] One tablet by mouth daily MULTIPLE VITAMINS-MINERALS 50172667926 Raul Palacios MD MULTIPLE VITAMINS-MINERALS (1 source) Start: 2016 take 1 tablet by mouth once daily MULTIVITAMIN ADULT TABS One tablet by mouth daily MULTIPLE VITAMINS-MINERALS 15991147459 Raul Palacios MD Multivitamin (Multiple Vitamins) 1 [...] EACH PO DAILY May 25, 2017 12:00am [place] 2-Cow-Chw-Fish Oil (Fish Oil 1,400 Mg Softgel) 1 EACH capsule,delayed release(DR/EC) (20 sources) Start: 05-25-2017 End: 05-29-2023 take 1 capsule by mouth once daily [place] 0-Aqi-Dqz-Fish Oil (Fish Oil 1,400 Mg Softgel) 1 EACH capsule,delayed release(DR/EC) Discontinued 1 NMA PO DAILY May 25, 2017 12:00am May 29, 2023 1:25pm Start: 05-25-2017 End: 05-29-2023 take 1 capsule by mouth once daily [place] 3-Umi-Srs-Fish Oil (Fish Oil 1,400 Mg Softgel) 1 EACH capsule,delayed release(DR/EC) Discontinued 1 NMA PO DAILY May 24, 2017 11:00pm May 29, 2023 12:25pm Start: 05-25-2017 End: 05-29-2023 take 1 capsule by mouth once daily [place] 7-Tjs-Xyx-Fish Oil (Fish Oil 1,400 Mg Softgel) 1 EACH capsule,delayed release(DR/EC) Discontinued 1 EACH PO DAILY May 24, 2017 11:00pm May 29, 2023 12:25pm Start: 05-25-2017 End: 05-29-2023 take 1 capsule by mouth once daily [place] 5-Egp-Qir-Fish Oil (Fish Oil 1,400 Mg Softgel) 1 EACH capsule,delayed release(DR/EC) Discontinued 1 EACH PO DAILY May 25, 2017 12:00am May 29, 2023 1:25pm Start: 05-25-2017 take 1 capsule by [facility] once daily [place] 0-Jqz-Zlp-Fish Oil (Fish Oil 1,400 Mg Softgel) 1 EACH capsule,delayed release(DR/EC) Active 1 EACH PO DAILY May 25, 2017 12:00am OMEGA-3 FATTY ACIDS CAPS (1 source) Start: 05-24-2017 take 1 tablet by mouth once daily [facility] FISH OIL CAPS One tablet by mouth daily OMEGA-3 FATTY ACIDS CAPS [id number] Raul Palacios MD polyethylene glycol 3350 233059 mg / potassium chloride 2820 mg / sodium bicarbonate 6360 mg / sodium chloride 5530 mg / sodium sulfate 99431 mg powder for oral solution (2 sources) Osmotic Laxative Start: 05-24-2017 GOLYTELY 227. 1 GM SOLR take as directed PEG 0088-HVV-VVIDR-NAC L-NASULF 15421799644 Raul Palacios MD Start: 05-24-2017 GOLYTELY 227.1 GM SOLR take as directed PEG 8832-GRV-TEISO-NACL-NASULF 38797019020 Raul Palacios MD polyethylene glycol 400 4 [...] One tablet by mouth daily POTASSIUM CHLORIDE 35307653565 Raul Palacios MD Start: 05-24-2017 take 1 tablet by phyllis th once daily POTASSIUM CHLORIDE ER 8 MEQ CR-TABS One tablet by mouth daily POTASSIUM CHLORIDE 35992530153 Raul Palacios MD potassium citrate 10 meq [...] Start: 7 [facility] PROBIOTIC CAPS PROBIOTIC PRODUCT 22594307219 Raul Palacios MD PROBIOTIC PRODUCT (1 source) Start: 7 [facility] PROBIOTIC CAPS PROBIOTIC PRODUCT 93458121662 Raul Palacios MD thioctic acid 100 mg oral capsule (2 sources) Start: 7 take 1 tablet by mouth once daily ALPHA-LIPOIC ACID 100 MG CAPS One tablet by mouth daily ALPHA-LIPOIC ACID 89330807028 Raul Palacios MD ubidecarenone 100 mg oral [...] 03-14-2025 Episodic Other aftercare (1 source) Other rn long term care (current) drug therapy; Translations: [Other assisted (current) drug therapy] Onset: 01-13-2025 Episodic Other [...] )on 03-30-2025 BUN/CRE 19.8 RATIO Normal 10-20 [facility] Comment on above: Performed By: #### L 500.4050, L501.5200, L503.0105, L503.6550, L509.1000, L503.6150, L506.0250, L100.0100, L503.6075, L506.1000 #### [facility] [address] [place], [address] Calcium [Mass/Vol] 9.3 mg/dL Normal 7.6-11.0 [facility] Comment on above: Performed By: #### L 500.4050, L501.5200, L503.0105, L503.6550, L509.1000, L503.6150, L506.0250, L100.0100, L503.6075, L506.1000 #### [facility] [address] [facility] [place], [address] Chloride [Moles/Vol] 104 mmol/L Normal 98-108 [facility] Comment on above: Performed By: #### L 500.4050, L501.5200, L503.0105, L503.6550, L509.1000, L503.6150, L506.0250, L100.0100, L503.6075, L506.1000 #### [facility] [address] [facility] [place], [address] CO2 [Moles/Vol] 26.2 mmol/L Normal 21.0-32.0 [facility] Comment on above: Performed By: #### L 500.4050, L501.5200, L503.0105, L503.6550, L509.1000, L503.6150, L506.0250, L100.0100, L503.6075, L506.1000 #### [facility] [address] [facility] [address] [place], [address] Creatinine [Mass/Vol] 1.22 mg/dL High 0.70-1.20 [facility] Comment on above: Performed By: #### L 500.4050, L501.5200, L503.0105, L503.6550, L509.1000, L503.6150, L506.0250, L100.0100, L503.6075, L506.1000 #### [facility] [address] [place], [address] GAP 11 Normal 5-15 [facility] Comment on above: Performed By: #### L 500.4050, L501.5200, L503.0105, L503.6550, L509.1000, L503.6150, L506.0250, L100.0100, L503.6075, L506.1000 #### [facility] [address] [place], [address] GFR/1.73 sq M.predicted among non-blacks MDRD (S/P/Bld) [Vol rate/Area] 64 mL/min/{1.73_m2} Normal >60 [facility] Comment on above: Result Comment: mL/m in/1.73m2 CKD-EPI Creatinine Equation (2020) Performed By: #### L 500.4050, L501.5200, L503.0105, L503.6550, L509.1000, L503.6150, L506.0250, L100.0100, L503.6075, L506.1000 #### [facility] [address] [place], [address] Glucose [Mass/Vol] 122 mg/dL High 70-99 [facility] Comment on above: Performed By: #### L 500.4050, L501.5200, L503.0105, L503.6550, L509.1000, L503.6150, L506.0250, L100.0100, L503.6075, L506.1000 #### [facility] [address] [place], [address] Potassium [Moles/Vol] 4.6 mmol/L Normal 3.3-5.1 [facility] Comment on above: Performed By: #### L 500.4050, L501.5200, L503.0105, L503.6550, L509.1000, L503.6150, L506.0250, L100.0100, L503.6075, L506.1000 #### [facility] [address] [place], [address] Sodium [Moles/Vol] 141 mmol/L Normal 133-145 [facility] Comment on above: Performed By: #### L 500.4050, L501.5200, L503.0105, L503.6550, L509.1000, L503.6150, L506.0250, L100.0100, L503.6075, L506.1000 #### [facility] [address] [place], [address] Urea nitrogen [Mass/Vol] 24 mg/dL High - [facility] Comment on above: Performed By: #### L 500.4050, L501.5200, L503.0105, L503.6550, L509.1000, L503.6150, L506.0250, L100.0100, L503.6075, L506.1000 #### [facility] [address] [place], [address] Basic Metabolic Profile (BMP )on 03-26-2025 BUN/CRE 22.3 RATIO High - [facility] Comment on above: Performed By: #### L 500.4050, L501.5200, L503.0105, L503.6550, L509.1000, L503.6150, L506.0250, L100.0100, L503.6075, L506.1000 #### [facility] [address] [place], [address] Calcium [Mass/Vol] 9.4 mg/dL Normal 7.6-11.0 [facility] Comment on above: Performed By: #### L 500.4050, L501.5200, L503.0105, L503.6550, L509.1000, L503.6150, L506.0250, L100.0100, L503.6075, L506.1000 #### [facility] [address] [place], [place], [phone] (853) Chloride [Moles/Vol] 97 mmol/L Low 98-108 [facility] Comment on above: Performed By: #### L 500.4050, L501.5200, L503.0105, L503.6550, L509.1000, L503.6150, L506.0250, L100.0100, L503.6075, L506.1000 #### [facility] [address] [facility] [place], [place], [phone] (850) CO2 [Moles/Vol] 29.8 mmol/L Normal 21.0-32.0 [facility] Comment on above: Performed By: #### L 500.4050, L501.5200, L503.0105, L503.6550, L509.1000, L503.6150, L506.0250, L100.0100, L503.6075, L506.1000 #### [facility] [address] [facility] [place], [place], [phone] (437) Creatinine [Mass/Vol] 1.18 mg/dL Normal 0.70-1.20 [facility] Comment on above: Performed By: #### L 500.4050, L501.5200, L503.0105, L503.6550, L509.1000, L503.6150, L506.0250, L100.0100, L503.6075, L506.1000 #### [facility] [address] [place], [address] GAP 12 Normal 5-15 [facility] Comment on above: Performed By: #### L 500.4050, L501.5200, L503.0105, L503.6550, L509.1000, L503.6150, L506.0250, L100.0100, L503.6075, L506.1000 #### [facility] [address] [place], [address] GFR/1.73 sq M.predicted among non-blacks MDRD (S/P/Bld) [Vol rate/Area] 67 mL/min/{1.73_m2} Normal >60 [facility] Comment on above: Result Comment: mL/m in/1.73m2 CKD-EPI Creatinine Equation (2020) Performed By: #### L 500.4050, L501.5200, L503.0105, L503.6550, L509.1000, L503.6150, L506.0250, L100.0100, L503.6075, L506.1000 #### [facility] [address] [place], [address] Glucose [Mass/Vol] 131 mg/dL High 70-99 [facility] Comment on above: Performed By: #### L 500.4050, L501.5200, L503.0105, L503.6550, L509.1000, L503.6150, L506.0250, L100.0100, L503.6075, L506.1000 #### [facility] [address] [place], [address] Potassium [Moles/Vol] 3.3 mmol/L Normal 3.3-5.1 [facility] Comment on above: Result Comment: Hemo lysis present, Results??could be affected. ?? Performed By: #### L 500.4050, L501.5200, L503.0105, L503.6550, L509.1000, L503.6150, L506.0250, L100.0100, L503.6075, L506.1000 #### [facility] [address] [place], [address] Sodium [Moles/Vol] 139 mmol/L Normal 133-145 [facility] Comment on above: Performed By: #### L 500.4050, L501.5200, L503.0105, L503.6550, L509.1000, L503.6150, L506.0250, L100.0100, L503.6075, L506.1000 #### [facility] [address] [place], [address] Urea nitrogen [Mass/Vol] 26 mg/dL High - [facility] Comment on above: Performed By: #### L 500.4050, L501.5200, L503.0105, L503.6550, L509.1000, L503.6150, L506.0250, L100.0100, L503.6075, L506.1000 #### [facility] [address] [facility] [place], [address] [id number] 03-26-2025 [facility] Misc. COMMENT Normal . [facility] Comment on above: Order Comment: Order Date: 08/19/24 Order Info: 2132-9 - B12 Order Info: [id number] - VITD25 Result Comment: Test Ordered: [id number] Paraneoplastic Ab Test(s) 478362-Liqq-Op Ab; 705919-Urlb-Lw Ab; 614007- Antineuronal nuclear Ab Type 3; 990828- MARKET MAKER Type-1 (Anti-Yo) Ab; 657700- Purkinje Cell Cyto Ab Type 2; 696308- Purkinje Cell Cyto Ab Type Tr; 451994-Aezxjwfosjf Antibody; 929474-CVRL-3 IgG; 997796-ZUUN-9; 022252- CASPR2 Antibody,Cell-based IFA; 953458- LGI1 Antibody, Cell-based IFA was developed and [...] Type 3 Negative BN Reference Range: Negative MARKET MAKER Type-1 (Anti-Yo) Ab Negative BN Reference Range: [...] BN Reference Range: Negative Performed at: - [address] [id number] [employer] Process Workers: Carlos Sim MD, Phone: [phone] Performed at: [facility] [address] [id number] [employer] Process Workers: Hesham Christopher PhD, Phone: [phone] Performed By: #### L 500.4050, L501.5200, L503.0105, L503.6550, L509.1000, L503.6150, L506.0250, L100.0100, L503.6075, L506.1000 #### [facility] [address] [facility] [place], [place], [address] CRP, High Sensitivity 636414 on 03-24-2025 CRP, HIGH SENS 9.33 mg/L High 0.00-3.00 [facility] Comment on above: Result Comment: Rela tive Risk for Future Cardiovascular Event Low <1.00 Average 1.00 - 3.00 High >3.00 Performed By: #### L 500.4050, L501.5200, L503.0105, L503.6550, L509.1000, L503.6150, L506.0250, L100.0100, L503.6075, L506.1000 #### [facility] [address] [place], [address] L3410.9992on 03-17-2025 [facility] Normal . [facility] Comment on above: Order Comment: Order Date: 08/19/24 Order Info: [id number] - PTHIN Result Comment: Test Ordered: [id number] CBG with Free Cortisol Kendall.Bind.Glob.(CBG) 2.2 mg/dL ES Reference Range: . This test was developed and its performance characteristics determined by [facility]. It has not been cleared or approved by the Food and Drug Administration. Reference Range: Adults: 1.7 - 3.1 Cortisol, Serum LCMS 14 ug/dL ES Reference Range: . This test was developed and its performance characteristics determined by [facility]. It has not been cleared or [...] 8:00 am: 2.3 - 9.5 Performed at: [facility] [address] [place] [id number] [employer] Workers: Evan Savage MD, Phone: [phone] Performed at: [address] [id number] [employer] Workers: Hesham Christopher PhD, Phone: [phone] Performed By: #### L 500.4050, L501.5200, L503.0105, L503.6550, L509.1000, L503.6150, L506.0250, L100.0100, L503.6075, L506.1000 #### [facility] [place], [address] L3410.9992on 03-16-2025 [facility]. COMMENT Normal . [facility] Comment on above: Order Comment: Order Date: 08/19/24 Order Info: [id number] - PTHIN Result Comment: Test Ordered: [id number] Dexamethasone, Serum Dexamethasone, Serum <30 ng/dL ES Reference Range: . This test was developed and its performance characteristics determined by [facility]. It has not been cleared or approved by the Food and Drug Administration. Reference Range: Adults baseline: <30 8:00 AM following 1 mg dexamethasone previous evenin - 295 8:00 AM following 8 mg dexamethasone (4 x 2 mg doses) previous day: 1600 - 2850 Performed at: [facility] [address] [place] [id number] [employer] Workers: Evan Savage MD, Phone: [phone] Performed at: [facility] [address] [id number] [employer] Workers: Hesham Christopher PhD, Phone: [phone] Performed By: #### L 500.4050, L501.5200, L503.0105, L503.6550, L509.1000, L503.6150, L506.0250, L100.0100, L503.6075, L506.1000 #### [facility] [address] [place], [place], [id number] Anion gap in Serum or Plasma Ordered By: Tony Kay on 03-13-2025 Anion gap [Moles/Vol] 10 mmol/L 5-15 [facility] BUN/creatinine ratioOrdered By: Tony Kay on 03-13-2025 Urea nitrogen/Creatinine [Mass ratio] 20.7 mg/mg High [facility]20 [facility] Basic Metabolic Profile (BMP )on 03-13-2025 BUN/CRE 20.7 RATIO High [address] [place] [address] Comment on above: Performed By: #### L 500.4050, L501.5200, L503.0105, L503.6550, L509.1000, L503.6150, L506.0250, L100.0100, L503.6075, L506.1000 #### [facility] [address] [place], [place], [id number] Calcium [Mass/Vol] 9.6 mg/dL Normal 7.6-11.0 [facility] Comment on above: Performed By: #### L 500.4050, L501.5200, L503.0105, L503.6550, L509.1000, L503.6150, L506.0250, L100.0100, L503.6075, L506.1000 #### [facility] [address] [place], [address] Chloride [Moles/Vol] 105 mmol/L Normal 98-108 [facility] Comment on above: Performed By: #### L 500.4050, L501.5200, L503.0105, L503.6550, L509.1000, L503.6150, L506.0250, L100.0100, L503.6075, L506.1000 #### [facility] [address] [facility] [address] [place], [place], [id number] (814) CO2 [Moles/Vol] 25.2 mmol/L Normal 21.0-32.0 [facility] Comment on above: Performed By: #### L 500.4050, L501.5200, L503.0105, L503.6550, L509.1000, L503.6150, L506.0250, L100.0100, L503.6075, L506.1000 #### [facility] [address] [facility] [place], [place], [phone] (094) Creatinine [Mass/Vol] 1.29 mg/dL High 0.70-1.20 [facility] Comment on above: Performed By: #### L 500.4050, L501.5200, L503.0105, L503.6550, L509.1000, L503.6150, L506.0250, L100.0100, L503.6075, L506.1000 #### [facility] [address] [place], [address] GAP 10 Normal 5-15 [facility] Comment on above: Performed By: #### L 500.4050, L501.5200, L503.0105, L503.6550, L509.1000, L503.6150, L506.0250, L100.0100, L503.6075, L506.1000 #### [facility] [address] [place], [address] GFR/1.73 sq M.predicted among non-blacks MDRD (S/P/Bld) [Vol rate/Area] 60 mL/min/{1.73_m2} Normal >60 [facility] Comment on above: Result Comment: mL/m in/1.73m2 CKD-EPI Creatinine Equation (2020) Performed By: #### L 500.4050, L501.5200, L503.0105, L503.6550, L509.1000, L503.6150, L506.0250, L100.0100, L503.6075, L506.1000 #### [facility] [address] [place], [address] Glucose [Mass/Vol] 123 mg/dL High 70-99 [facility] Comment on above: Performed By: #### L 500.4050, L501.5200, L503.0105, L503.6550, L509.1000, L503.6150, L506.0250, L100.0100, L503.6075, L506.1000 #### [facility] [address] [place], [address] Potassium [Moles/Vol] 4.8 mmol/L Normal 3.3-5.1 [facility] Comment on above: Performed By: #### L 500.4050, L501.5200, L503.0105, L503.6550, L509.1000, L503.6150, L506.0250, L100.0100, L503.6075, L506.1000 #### [facility] [address] [place], [address] Sodium [Moles/Vol] 141 mmol/L Normal 133-145 [facility] Comment on above: Performed By: #### L 500.4050, L501.5200, L503.0105, L503.6550, L509.1000, L503.6150, L506.0250, L100.0100, L503.6075, L506.1000 #### [facility] [address] [place], [address] Urea nitrogen [Mass/Vol] 27 mg/dL High 4-19 [facility] Comment on above: Performed By: #### L 500.4050, L501.5200, L503.0105, L503.6550, L509.1000, L503.6150, L506.0250, L100.0100, L503.6075, L506.1000 #### [facility] [address] [facility] [place], [place], [id number] Carbon dioxide, total [Moles /volume] in Central venous bloodOrdered By: Tony Kay on 03-13-2025 CO2 [Moles/Vol] 25.2 mmol/L 21.0-32.0 [facility] Chloride assayOrdered By: Diego Kay on 03-13-2025 Chloride [Moles/Vol] 105 mmol/L 98-108 [facility] Glomerular filtration rate ( GFR) estimation/1.73 sq m using serum, plasma, or whole bOrdered By: Tony Kay on 03-13-2025 GFR/1.73 sq M.predicted among non-blacks MDRD (S/P/Bld) [Vol rate/Area] 60 mL/min/{1.73_m2} >60 [facility] Comment on above: mL/min/1.73m2 CKD-EP I Creatinine Equation (2020) Potassium measurement (mass/ volume)Ordered By: Tony Kay on 03-13-2025 Potassium (Unsp spec) [Mass/Vol] 4.8 mmol/L 3.3-5.1 [facility] Serum creatinine measurement (mass/volume)Ordered By: Tony Kay on 03-13-2025 Creatinine [Mass/Vol] 1.29 mg/dL High 0.70-1.20 [facility] Serum glucose measurement (m ass/volume)Ordered By: Tony Kay on 03-13-2025 Glucose [Mass/Vol] 123 mg/dL High 70-99 [facility] Serum or plasma calcium tracy urement (mass/volume)Ordered By: Tony Kay on 03-13-2025 Calcium [Mass/Vol] 9.6 mg/dL 7.6-11.0 [facility] Serum or plasma urea nitroge n measurement (mass/volume)Ordered By: Tony Kay on 03-13-2025 Urea nitrogen [Mass/Vol] 27 mg/dL High 4-19 [facility] Sodium levelOrdered By: Tony Kay on 03-13-2025 Sodium [Moles/Vol] 141 mmol/L 133-145 [facility] Angiotensin Convert Enzymeon 03-11-2025 ANGIOT-CONV.ENZ 33 U/L Normal 14-82 [facility] Comment on above: Order Comment: Order Date: 08/19/24 Order Info: 0565-1 - PTHIN Result Comment: Perf ormed at: - [facility] [address] [id number] [employer] Workers: Hesham Christopher PhD, Phone: [phone] Performed By: #### L 500.4050, L501.5200, L503.0105, L503.6550, L509.1000, L503.6150, L506.0250, L100.0100, L503.6075, L506.1000 #### [facility] [address] [place], [address] Anion gap in Serum or Plasma Ordered By: Tony Kay on 03-10-2025 Anion gap [Moles/Vol] 13 mmol/L 5-15 [facility] BUN/creatinine ratioOrdered By: Tony Kay on 03-10-2025 Urea nitrogen/Creatinine [Mass ratio] 20.7 mg/mg High - [facility] Basic Metabolic Profile (BMP )on 03-10-2025 BUN/CRE 20.7 RATIO High - [facility] Comment on above: Order Comment: Order Date: 08/19/24 Order Info: 2132-9 - B12 Order Info: 48802-4 - VITD25 Performed By: #### L 500.4050, L501.5200, L503.0105, L503.6550, L509.1000, L503.6150, L506.0250, L100.0100, L503.6075, L506.1000 #### [facility] [address] [place], [address] Calcium [Mass/Vol] 9.2 mg/dL Normal 7.6-11.0 [facility] Comment on above: Order Comment: Order Date: 08/19/24 Order Info: 2132-06 - B12 Order Info: 06044-3 - VITD25 Performed By: #### L 500.4050, L501.5200, L503.0105, L503.6550, L509.1000, L503.6150, L506.0250, L100.0100, L503.6075, L506.1000 #### [facility] [address] [place], [place], [id number] Chloride [Moles/Vol] 100 mmol/L Normal 98-108 [facility] Comment on above: Order Comment: Order Date: 08/19/24 Order Info: 2132-06 - B12 Order Info: 32209-4 - VITD25 Performed By: #### L 500.4050, L501.5200, L503.0105, L503.6550, L509.1000, L503.6150, L506.0250, L100.0100, L503.6075, L506.1000 #### [facility] [address] [place], [address] CO2 [Moles/Vol] 26.6 mmol/L Normal 21.0-32.0 [facility] Comment on above: Order Comment: Order Date: 08/19/24 Order Info: 9 - B12 Order Info: 50608-2 - VITD25 Performed By: #### L 500.4050, L501.5200, L503.0105, L503.6550, L509.1000, L503.6150, L506.0250, L100.0100, L503.6075, L506.1000 #### [facility] [address] [place], [address] Creatinine [Mass/Vol] 1.06 mg/dL Normal 0.70-1.20 [facility] Comment on above: Order Comment: Order Date: 08/19/24 Order Info: 2132-06 Order Info: 90487-8 - VITD25 Performed By: #### L 500.4050, L501.5200, L503.0105, L503.6550, L509.1000, L503.6150, L506.0250, L100.0100, L503.6075, L506.1000 #### [facility] [address] [place], [place], [id number] GAP 13 Normal 5-15 [facility] Comment on above: Order Comment: Order Date: 08/19/24 Order Info: 2132-06 Order Info: 18696-8 - VITD25 Performed By: #### L 500.4050, L501.5200, L503.0105, L503.6550, L509.1000, L503.6150, L506.0250, L100.0100, L503.6075, L506.1000 #### [facility] [address] [place], [address] GFR/1.73 sq M.predicted among non-blacks MDRD (S/P/Bld) [Vol rate/Area] 76 mL/min/{1.73_m2} Normal >60 [facility] Comment on above: Order Comment: Order Date: 08/19/24 Order Info: 2132-06 Order Info: 40736-9 - VITD25 Result Comment: mL/m in/1.73m2 CKD-EPI Creatinine Equation (2020) Performed By: #### L 500.4050, L501.5200, L503.0105, L503.6550, L509.1000, L503.6150, L506.0250, L100.0100, L503.6075, L506.1000 #### [facility] [address] [place], [address] Glucose [Mass/Vol] 118 mg/dL High 70-99 [facility] Comment on above: Order Comment: Order Date: 08/19/24 Order Info: 2132-06 B12 Order Info: 07811-8 - VITD25 Performed By: #### L 500.4050, L501.5200, L503.0105, L503.6550, L509.1000, L503.6150, L506.0250, L100.0100, L503.6075, L506.1000 #### [facility] [address] [place], [address] Potassium [Moles/Vol] 3.1 mmol/L Low 3.3-5.1 [facility] Comment on above: Order Comment: Order Date: 08/19/24 Order Info: 2132-06 Order Info: 52764-0 - VITD25 Performed By: #### L 500.4050, L501.5200, L503.0105, L503.6550, L509.1000, L503.6150, L506.0250, L100.0100, L503.6075, L506.1000 #### [facility] [address] [place], [address] Sodium [Moles/Vol] 139 mmol/L Normal 133-145 [facility] Comment on above: Order Comment: Order Date: 08/19/24 Order Info: 2132-06 Order Info: 98787-0 - VITD25 Performed By: #### L 500.4050, L501.5200, L503.0105, L503.6550, L509.1000, L503.6150, L506.0250, L100.0100, L503.6075, L506.1000 #### [facility] [address] [place], [address] Urea nitrogen [Mass/Vol] 22 mg/dL High 4-19 [facility] Comment on above: Order Comment: Order Date: 08/19/24 Order Info: 9 - B12 Order Info: 54054-1 - VITD25 Performed By: #### L 500.4050, L501.5200, L503.0105, L503.6550, L509.1000, L503.6150, L506.0250, L100.0100, L503.6075, L506.1000 #### [facility] [address] [place], [address] CRPon 03-10-2025 C-REACTIVE PROT 16.20 mg/L High 0.0-3.0 [facility] Comment on above: Order Comment: Order Date: 08/19/24 Order Info: 9 - B12 Order Info: 26828-2 - VITD25 Performed By: #### L 500.4050, L501.5200, L503.0105, L503.6550, L509.1000, L503.6150, L506.0250, L100.0100, L503.6075, L506.1000 #### [facility] [address] [place], [place], [address] Carbon dioxide, total [Moles /volume] in Central venous bloodOrdered By: Tony Kay on 03-10-2025 CO2 [Moles/Vol] 26.6 mmol/L 21.0-32.0 [facility] Chest PA and Lateralon 03-10 Chest PA and Lateral [facility] Services [address] [place] [address] Chest PA and Lateral MR#: [id number] Acct: [id number] Name: BALTAZAR BAY Rep #: [id number] : 1955 M 69 From: Toño Barnes MD PCP: Dr. Tony Kay MD Status: REG CLI Study: Chest PA and Lateral Date of Exam: 03/10/25 Exam# [id number] Ordering Dr: Tony Kay MD PROCEDURE: CHEST [...] evidence of acute cardiopulmonary pathology. Reading Location: [id number] CC: Dr. Tony Kay MD Sap Portal Developer: Signed Normal [facility] Chloride assayOrdered By: Diego Kay on 03-10-2025 Chloride [Moles/Vol] 100 mmol/L 98-108 [facility] D-Dimer Quantitative (DVT/PE )on 03-10-2025 D-DIMER QUANT 0.38 FEU/ug/m Normal 0.27-0.49 [facility] Comment on above: Order Comment: Order Date: 08/19/24 Order Info: 2132-9 - B12 Order Info: [id number] - VITD25 Result Comment: NORM AL D-Dimer level (<0.50) indicates no DVT or PE. Performed By: #### L 500.4050, L501.5200, L503.0105, L503.6550, L509.1000, L503.6150, L506.0250, L100.0100, L503.6075, L506.1000 #### [facility] [address] [facility] [place], [place], [id number] Glomerular filtration rate ( GFR) estimation/1.73 sq m using serum, plasma, or whole bOrdered By: Tony Kay on 03-10-2025 GFR/1.73 sq M.predicted among non-blacks MDRD (S/P/Bld) [Vol rate/Area] 76 mL/min/{1.73_m2} >60 [facility] Comment on above: mL/min/1.73m2 CKD-EP I Creatinine Equation (2020) L501.4021on 03-10-2025 Trop T High Sen 17 ng/L Normal <=22 [facility] Comment on above: Order Comment: Order Date: 08/19/24 Order Info: 0565-1 - PTHIN Performed By: #### L 500.4050, L501.5200, L503.0105, L503.6550, L509.1000, L503.6150, L506.0250, L100.0100, L503.6075, L506.1000 #### [facility] [address] [place], [address] L503.7505on 03-10-2025 proBNP < 36 Normal <=900 [facility] Comment on above: Order Comment: Order Date: 08/19/24 Order Info: 0565-1 - PTHIN Result Comment: Hear t Failure Unlikely: < 300 pg/mL Heart Failure Likely < 50 Years: > 450 pg/mL 50-75 Years: > 900 pg/mL >75 Years: > 1800 pg/mL Performed By: #### L 500.4050, L501.5200, L503.0105, L503.6550, L509.1000, L503.6150, L506.0250, L100.0100, L503.6075, L506.1000 #### [facility] [address] [place], [address] Natriuretic peptide.B prohor gene N-Terminal [Mass/volume] in Serum or PlasmaOrdered By: Tony Kay on 03-10-2025 Natriuretic peptide.B prohormone N-Terminal [Mass/Vol] < 36 pg/mL <900 [facility] Comment on above: Heart Failure Unlike ly: < 300 pg/mLHeart Failure Likely< 50 Years: > 450 pg/mL50-75 Years: > 900 pg/mL>75 Years: > 1800 pg/mL Potassium measurement (mass/ volume)Ordered By: Tony Kay on 03-10-2025 Potassium (Unsp spec) [Mass/Vol] 3.1 mmol/L Low 3.3-5.1 [facility] Serum creatinine measurement (mass/volume)Ordered By: Tony Kay on 03-10-2025 Creatinine [Mass/Vol] 1.06 mg/dL 0.70-1.20 [facility] Serum glucose measurement (m ass/volume)Ordered By: Tony Kay on 03-10-2025 Glucose [Mass/Vol] 118 mg/dL High 70-99 [facility] Serum or plasma C reactive p rotein measurement (mass/volume)Ordered By: Tony Kay on 03-10-2025 CRP [Mass/Vol] 16.20 mg/L High 0.0-3.0 [facility] Serum or plasma angiotensin converting enzyme measurement (enzymatic activity/volume)Ordered By: Tony Kay on 03-10-2025 Angiotensin converting enzyme [Catalytic activity/Vol] 33 U/L 14-82 [facility] Comment on above: Performed at: [place] [id number] Director: Hesham Christopher PhD, Phone: [phone] Serum or plasma calcium tracy urement (mass/volume)Ordered By: Tony Kay on 03-10-2025 Calcium [Mass/Vol] 9.2 mg/dL 7.6-11.0 [facility] Serum or plasma urea nitroge n measurement (mass/volume)Ordered By: Tony Kay on 03-10-2025 Urea nitrogen [Mass/Vol] 22 mg/dL High 4-19 [facility] Sodium levelOrdered By: Tony Kay on 03-10-2025 Sodium [Moles/Vol] 139 mmol/L 133-145 [facility] Troponin T.cardiac [Mass/vol ume] in Serum or Plasma by High sensitivity methodOrdered By: Tony Kay on 03-10-2025 Troponin T.cardiac High sensitivity method [Mass/Vol] 17 ng/L <22 [facility] Basic Metabolic Profile (BMP )on 03-09-2025 BUN/CRE 21.4 RATIO High 10-20 [facility] Comment on above: Performed By: #### L 500.4050, L501.5200, L503.0105, L503.6550, L509.1000, L503.6150, L506.0250, L100.0100, L503.6075, L506.1000 #### [facility] [address] [place], [place], [id number] Calcium [Mass/Vol] 9.4 mg/dL Normal 7.6-11.0 [facility] Comment on above: Performed By: #### L 500.4050, L501.5200, L503.0105, L503.6550, L509.1000, L503.6150, L506.0250, L100.0100, L503.6075, L506.1000 #### [facility] [address] [place], [address] Chloride [Moles/Vol] 102 mmol/L Normal 98-108 [facility] Comment on above: Performed By: #### L 500.4050, L501.5200, L503.0105, L503.6550, L509.1000, L503.6150, L506.0250, L100.0100, L503.6075, L506.1000 #### [facility] [address] [place], [address] CO2 [Moles/Vol] 26.4 mmol/L Normal 21.0-32.0 [facility] Comment on above: Performed By: #### L 500.4050, L501.5200, L503.0105, L503.6550, L509.1000, L503.6150, L506.0250, L100.0100, L503.6075, L506.1000 #### [facility] [address] [place], [address] Creatinine [Mass/Vol] 1.09 mg/dL Normal 0.70-1.20 [facility] Comment on above: Performed By: #### L 500.4050, L501.5200, L503.0105, L503.6550, L509.1000, L503.6150, L506.0250, L100.0100, L503.6075, L506.1000 #### [facility] [address] [place], [address] GAP 12 Normal 5-15 [facility] Comment on above: Performed By: #### L 500.4050, L501.5200, L503.0105, L503.6550, L509.1000, L503.6150, L506.0250, L100.0100, L503.6075, L506.1000 #### [facility] [address] [place], [address] GFR/1.73 sq M.predicted among non-blacks MDRD (S/P/Bld) [Vol rate/Area] 73 mL/min/{1.73_m2} Normal >60 [facility] Comment on above: Result Comment: mL/m in/1.73m2 CKD-EPI Creatinine Equation (2020) Performed By: #### L 500.4050, L501.5200, L503.0105, L503.6550, L509.1000, L503.6150, L506.0250, L100.0100, L503.6075, L506.1000 #### [facility] [address] [place], [address] Glucose [Mass/Vol] 120 mg/dL High 70-99 [facility] Comment on above: Performed By: #### L 500.4050, L501.5200, L503.0105, L503.6550, L509.1000, L503.6150, L506.0250, L100.0100, L503.6075, L506.1000 #### [facility] [address] [place], [address] Potassium [Moles/Vol] 3.6 mmol/L Normal 3.3-5.1 [facility] Comment on above: Performed By: #### L 500.4050, L501.5200, L503.0105, L503.6550, L509.1000, L503.6150, L506.0250, L100.0100, L503.6075, L506.1000 #### [facility] [address] [place], [address] Sodium [Moles/Vol] 140 mmol/L Normal 133-145 [facility] Comment on above: Performed By: #### L 500.4050, L501.5200, L503.0105, L503.6550, L509.1000, L503.6150, L506.0250, L100.0100, L503.6075, L506.1000 #### [facility] [address] [facility] [address] [place], [place], [id number] Urea nitrogen [Mass/Vol] 23 mg/dL High 4-19 [facility] Comment on above: Performed By: #### L 500.4050, L501.5200, L503.0105, L503.6550, L509.1000, L503.6150, L506.0250, L100.0100, L503.6075, L506.1000 #### [facility] [address] [place], [address] ALDOSTERONE/DIRECT RENIN RAT IOon 03-06-2025 MELISSA RENIN RATIO 1.3 Normal <3.8 [facility] Comment on above: Order Comment: Speci men Type: BLOOD SPECIMEN Ordering Facility: [facility] Address: [address] [place] [address] Result Comment: A ra kimo of aldosterone in ng/dL to direct renin in pg/mL greater than or equal to 3.8 is a positive screening test result for primary aldosteronism, when aldosterone is greater than or equal to 15 ng/dL. Performed By: #### A LDREN #### [facility] CLIA [id number] [address] [place] [address] [place] Aldosterone [Mass/Vol] 68.7 ng/dL High 0.0-<35.4 [facility] Comment on above: Order Comment: Edwardi men Type: BLOOD SPECIMEN Ordering Facility: [facility] Address: [address] [place], [place] [id number] Result Comment: The reference interval for serum/plasma [...] ng/dL. Performed By: #### A LDREN #### [facility] CLIA [id number] [address] [place] [address] OF [facility] DIRECT RENIN 54.0 pg/mL Normal 3.6-81.6 [facility] Comment on above: Order Comment: Kirsten tomlin Type: BLOOD SPECIMEN Ordering Facility: [facility] Address: [address] [place] [address] Result Comment: The reference interval for direct [...] ng/dL. Performed By: #### A LDREN #### [facility] CLIA [id number] [address] [place] [address] [place] PATIENT UPRIGHT OR SUPINE Upright Normal [facility] Comment on above: Order Comment: Kirsten tomlin Type: BLOOD SPECIMEN Ordering Facility: [facility] Address: [address] [place] [address] Performed By: #### A LDREN #### [facility] CLIA [id number] [address] [place] [address] [place] L3410.9992on 03-06-2025 [facility] Misc. COMMENT Normal . [facility] Comment on above: Order Comment: Order Date: 08/19/24 Order Info: 0786-1 - CMP Order Info: 21582-5 - MG Order Info: 2500-7 - TIBC Order Info: 2498-4 - FE Order Info: 2276-4 - LUKE Order Info: 2284-8 - FOLS N Result Comment: Test Ordered: [id number] Dexamethasone, Serum Dexamethasone, Serum 452 ng/dL ES Reference Range: . This test was developed and its performance characteristics determined by [facility]. It has not been cleared or approved by the Food and Drug Administration. Reference Range: Adults baseline: <30 8:00 AM following 1 mg dexamethasone previous evenin - 295 8:00 AM following 8 mg dexamethasone (4 x 2 mg doses) previous day: 1600 - 2850 Performed at: [facility] [address] [place] [id number] [employer] Workers: Evan Savage MD, Phone: [phone] Performed at: [address] [id number] [employer] Workers: Hesham Christopher PhD, Phone: [phone] Performed By: #### L 500.4050, L501.5200, L503.0105, L503.6550, L509.1000, L503.6150, L506.0250, L100.0100, L503.6075, L506.1000 #### [facility] [address] [place] [address]. [place], [address] POTASSIUMon 03-06-2025 Potassium [Moles/Vol] 3.5 mmol/L Low 3.7-5.1 [facility] Comment on above: Order Comment: Speci men Type: BLOOD SPECIMEN Ordering Facility: [facility] Address: [address] [place] [address] Performed By: #### K 1 #### [facility] CLIA [id number] [address] [place] [address] [place] Anion gap in Serum or Plasma Ordered By: Tony Kay on 02-26-2025 Anion gap [Moles/Vol] 10 mmol/L - [facility] BUN/creatinine ratioOrdered By: Tony Kay on 02-26-2025 Urea nitrogen/Creatinine [Mass ratio] 21.8 mg/mg High 07-27 [facility] Basic Metabolic Profile (BMP )on 02-26-2025 BUN/CRE 21.8 RATIO High 10-20 [facility] Comment on above: Performed By: #### L 500.4050, L501.5200, L503.0105, L503.6550, L509.1000, L503.6150, L506.0250, L100.0100, L503.6075, L506.1000 #### [facility] [address] [place], [address] Calcium [Mass/Vol] 9.2 mg/dL Normal 7.6-11.0 [facility] Comment on above: Performed By: #### L 500.4050, L501.5200, L503.0105, L503.6550, L509.1000, L503.6150, L506.0250, L100.0100, L503.6075, L506.1000 #### [facility] [address] [place], [address] Chloride [Moles/Vol] 105 mmol/L Normal 98-108 [facility] Comment on above: Performed By: #### L 500.4050, L501.5200, L503.0105, L503.6550, L509.1000, L503.6150, L506.0250, L100.0100, L503.6075, L506.1000 #### [facility] [address] [place], [address] CO2 [Moles/Vol] 24.9 mmol/L Normal 21.0-32.0 [facility] Comment on above: Performed By: #### L 500.4050, L501.5200, L503.0105, L503.6550, L509.1000, L503.6150, L506.0250, L100.0100, L503.6075, L506.1000 #### [facility] [address] [place], [address] Creatinine [Mass/Vol] 1.08 mg/dL Normal 0.70-1.20 [facility] Comment on above: Performed By: #### L 500.4050, L501.5200, L503.0105, L503.6550, L509.1000, L503.6150, L506.0250, L100.0100, L503.6075, L506.1000 #### [facility] [address] [place], [address] GAP 10 Normal 5-15 [facility] Comment on above: Performed By: #### L 500.4050, L501.5200, L503.0105, L503.6550, L509.1000, L503.6150, L506.0250, L100.0100, L503.6075, L506.1000 #### [facility] [address] [place], [place], [id number] (178) GFR/1.73 sq M.predicted among non-blacks MDRD (S/P/Bld) [Vol rate/Area] 74 mL/min/{1.73_m2} Normal >60 [facility] Comment on above: Result Comment: mL/m in/1.73m2 CKD-EPI Creatinine Equation (2020) Performed By: #### L 500.4050, L501.5200, L503.0105, L503.6550, L509.1000, L503.6150, L506.0250, L100.0100, L503.6075, L506.1000 #### [facility] [address] [place], [address] Glucose [Mass/Vol] 134 mg/dL High 70-99 [facility] Comment on above: Performed By: #### L 500.4050, L501.5200, L503.0105, L503.6550, L509.1000, L503.6150, L506.0250, L100.0100, L503.6075, L506.1000 #### [facility] [address] [place], [place], [id number] ([address]) Potassium [Moles/Vol] 4.2 mmol/L Normal 3.3-5.1 [facility] Comment on above: Performed By: #### L 500.4050, L501.5200, L503.0105, L503.6550, L509.1000, L503.6150, L506.0250, L100.0100, L503.6075, L506.1000 #### [facility] [address] [place], [place], [id number] Sodium [Moles/Vol] 140 mmol/L Normal 133-145 [facility] Comment on above: Performed By: #### L 500.4050, L501.5200, L503.0105, L503.6550, L509.1000, L503.6150, L506.0250, L100.0100, L503.6075, L506.1000 #### [facility] [address] [facility] [place], [place], [id number] Urea nitrogen [Mass/Vol] 24 mg/dL High 4-19 [facility] Comment on above: Performed By: #### L 500.4050, L501.5200, L503.0105, L503.6550, L509.1000, L503.6150, L506.0250, L100.0100, L503.6075, L506.1000 #### [facility] [address] [place], [address] Carbon dioxide, total [Moles /volume] in Central venous bloodOrdered By: Tony Kay on 02-26-2025 CO2 [Moles/Vol] 24.9 mmol/L 21.0-32.0 [facility] Chloride assayOrdered By: Diego Kay on 02-26-2025 Chloride [Moles/Vol] 105 mmol/L 98-108 [facility] Glomerular filtration rate ( GFR) estimation/1.73 sq m using serum, plasma, or whole bOrdered By: Tony Kay on 02-26-2025 GFR/1.73 sq M.predicted among non-blacks MDRD (S/P/Bld) [Vol rate/Area] 74 mL/min/{1.73_m2} >60 [facility] Comment on above: mL/min/1.73m2 CKD-EP I Creatinine Equation (2020) L509.6001on 02-26-2025 CORTISOL 0.55 ug/dL Low 6.02-18.40 [facility] Comment on above: Order Comment: Order Date: 08/19/24 Order Info: 0786-1 - CMP Order Info: [id number] - MG Order Info: 2500-7 - TIBC Order Info: 2498-4 - FE Order Info: 2276-4 - LUKE Order Info: 2284-8 - FOLS N Performed By: #### L 500.4050, L501.5200, L503.0105, L503.6550, L509.1000, L503.6150, L506.0250, L100.0100, L503.6075, L506.1000 #### [facility] [address] [facility] [place], [place], [id number] Magnesiumon 02-26-2025 Magnesium [Mass/Vol] 2.1 mg/dL Normal 1.5-2.2 [facility] Comment on above: Performed By: #### L 500.4050, L501.5200, L503.0105, L503.6550, L509.1000, L503.6150, L506.0250, L100.0100, L503.6075, L506.1000 #### [facility] [address] [facility] [place], [place], [id number] Magnesium measurement (mass/ volume)Ordered By: Tony Kay on 02-26-2025 Magnesium (Unsp spec) [Mass/Vol] 2.1 mg/dL 1.5-2.2 [facility] Potassium measurement (mass/ volume)Ordered By: Tony Kay on 02-26-2025 Potassium (Unsp spec) [Mass/Vol] 4.2 mmol/L 3.3-5.1 [facility] Serum creatinine measurement (mass/volume)Ordered By: Tony Kay on 02-26-2025 Creatinine [Mass/Vol] 1.08 mg/dL 0.70-1.20 [facility] Serum glucose measurement (m ass/volume)Ordered By: Tony Kay on 02-26-2025 Glucose [Mass/Vol] 134 mg/dL High 70-99 [facility] Serum or plasma calcium tracy urement (mass/volume)Ordered By: Tony Kay on 02-26-2025 Calcium [Mass/Vol] 9.2 mg/dL 7.6-11.0 [facility] Serum or plasma cortisol cliff surement (mass/volume)Ordered By: Tony Kay on 02-26-2025 Cortisol [Mass/Vol] 0.55 ug/dL Low 6.02-18.40 [facility] Serum or plasma urea nitroge n measurement (mass/volume)Ordered By: Tony Kay on 02-26-2025 Urea nitrogen [Mass/Vol] 24 mg/dL High 01-24 [facility] Sodium levelOrdered By: Tony Kay on 02-26-2025 Sodium [Moles/Vol] 140 mmol/L 133-145 [facility] Anion gap in Serum or Plasma Ordered By: Tony Kay on 02-23-2025 Anion gap [Moles/Vol] 13 mmol/L 5-15 [facility] BUN/creatinine ratioOrdered By: Tony Kay on 02-23-2025 Urea nitrogen/Creatinine [Mass ratio] 22.0 mg/mg High 07-27 [facility] Basic Metabolic Profile (BMP )on 02-23-2025 BUN/CRE 22.0 RATIO High 07-27 [facility] Comment on above: Performed By: #### L 500.4050, L501.5200, L503.0105, L503.6550, L509.1000, L503.6150, L506.0250, L100.0100, L503.6075, L506.1000 #### [facility] Laboratory [facility] [address] [place], [place], [address] Calcium [Mass/Vol] 9.4 mg/dL Normal 7.6-11.0 [facility] Comment on above: Performed By: #### L 500.4050, L501.5200, L503.0105, L503.6550, L509.1000, L503.6150, L506.0250, L100.0100, L503.6075, L506.1000 #### [facility] [address] [place], [address] Chloride [Moles/Vol] 101 mmol/L Normal 98-108 [facility] Comment on above: Performed By: #### L 500.4050, L501.5200, L503.0105, L503.6550, L509.1000, L503.6150, L506.0250, L100.0100, L503.6075, L506.1000 #### [facility] [address] [facility] [place], [address] CO2 [Moles/Vol] 27.1 mmol/L Normal 21.0-32.0 [facility] Comment on above: Performed By: #### L 500.4050, L501.5200, L503.0105, L503.6550, L509.1000, L503.6150, L506.0250, L100.0100, L503.6075, L506.1000 #### [facility] [address] [facility] [place], [place], [id number] (971) Creatinine [Mass/Vol] 1.06 mg/dL Normal 0.70-1.20 [facility] Comment on above: Performed By: #### L 500.4050, L501.5200, L503.0105, L503.6550, L509.1000, L503.6150, L506.0250, L100.0100, L503.6075, L506.1000 #### [facility] [address] [facility] [address] [place], [address] GAP 13 Normal 5-15 [facility] Comment on above: Performed By: #### L 500.4050, L501.5200, L503.0105, L503.6550, L509.1000, L503.6150, L506.0250, L100.0100, L503.6075, L506.1000 #### [facility] [address] [place], [address] GFR/1.73 sq M.predicted among non-blacks MDRD (S/P/Bld) [Vol rate/Area] 76 mL/min/{1.73_m2} Normal >60 [facility] Comment on above: Result Comment: mL/m in/1.73m2 CKD-EPI Creatinine Equation (2020) Performed By: #### L 500.4050, L501.5200, L503.0105, L503.6550, L509.1000, L503.6150, L506.0250, L100.0100, L503.6075, L506.1000 #### [facility] [address] [place], [address] Glucose [Mass/Vol] 148 mg/dL High 70-99 [facility] Comment on above: Performed By: #### L 500.4050, L501.5200, L503.0105, L503.6550, L509.1000, L503.6150, L506.0250, L100.0100, L503.6075, L506.1000 #### [facility] [address] [place], [address] Potassium [Moles/Vol] 3.5 mmol/L Normal 3.3-5.1 [facility] Comment on above: Performed By: #### L 500.4050, L501.5200, L503.0105, L503.6550, L509.1000, L503.6150, L506.0250, L100.0100, L503.6075, L506.1000 #### [facility] [address] [place], [address] Sodium [Moles/Vol] 140 mmol/L Normal 133-145 [facility] Comment on above: Performed By: #### L 500.4050, L501.5200, L503.0105, L503.6550, L509.1000, L503.6150, L506.0250, L100.0100, L503.6075, L506.1000 #### [facility] [address] [place], [place], [id number] Urea nitrogen [Mass/Vol] 23 mg/dL High 01-24 [facility] Comment on above: Performed By: #### L 500.4050, L501.5200, L503.0105, L503.6550, L509.1000, L503.6150, L506.0250, L100.0100, L503.6075, L506.1000 #### [facility] [address] [facility] [place], [place], [id number] Carbon dioxide, total [Moles /volume] in Central venous bloodOrdered By: Tony Kay on 02-23-2025 CO2 [Moles/Vol] 27.1 mmol/L 21.0-32.0 [facility] Chloride assayOrdered By: Diego Kay on 02-23-2025 Chloride [Moles/Vol] 101 mmol/L 98-108 [facility] Glomerular filtration rate ( GFR) estimation/1.73 sq m using serum, plasma, or whole bOrdered By: Tony Kay on 02-23-2025 GFR/1.73 sq M.predicted among non-blacks MDRD (S/P/Bld) [Vol rate/Area] 76 mL/min/{1.73_m2} >60 [facility] Comment on above: mL/min/1.73m2 CKD-EP I Creatinine Equation (2020) Magnesiumon 02-23-2025 Magnesium [Mass/Vol] 1.9 mg/dL Normal 1.5-2.2 [facility] Comment on above: Performed By: #### L 500.4050, L501.5200, L503.0105, L503.6550, L509.1000, L503.6150, L506.0250, L100.0100, L503.6075, L506.1000 #### [facility] [address] [place], [address] Magnesium measurement (mass/ volume)Ordered By: Tony Kay on 02-23-2025 Magnesium (Unsp spec) [Mass/Vol] 1.9 mg/dL 1.5-2.2 [facility] Potassium measurement (mass/ volume)Ordered By: Tony Kay on 02-23-2025 Potassium (Unsp spec) [Mass/Vol] 3.5 mmol/L 3.3-5.1 [facility] Serum creatinine measurement (mass/volume)Ordered By: Tony Kay on 02-23-2025 Creatinine [Mass/Vol] 1.06 mg/dL 0.70-1.20 [facility] Serum glucose measurement (m ass/volume)Ordered By: Tony Kay on 02-23-2025 Glucose [Mass/Vol] 148 mg/dL High 70-99 [facility] Serum or plasma calcium tracy urement (mass/volume)Ordered By: Tony Kay on 02-23-2025 Calcium [Mass/Vol] 9.4 mg/dL 7.6-11.0 [facility] Serum or plasma urea nitroge n measurement (mass/volume)Ordered By: Tony Kay on 02-23-2025 Urea nitrogen [Mass/Vol] 23 mg/dL High 4-19 [facility] Sodium levelOrdered By: Tony Kay on 02-23-2025 Sodium [Moles/Vol] 140 mmol/L 133-145 [facility] CNOVon 02-17-2025 CNOV Office Visit ([facility] ) ----- BALTAZAR BAY ([id number]) 1955 M Date Time Provider Department 02/17/25 [...] 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 He follows [facility] abstracts, [facility] and [facility] articles, and reports he thought the fluid [...] CT abdomen and pelvis with contrast at [facility] on 06/27/2023 shows unremarkable adrenal glands (scanned [...] (FLORASTOR ORAL) Take by mouth once daily. stvgz-ke-5-bii-buy-rregxj o-ast 024-148-12-64 mg cap zinc sulfate (ZINC-220) 220 mg [...] ferrous sulfat (more content not included)... Normal [facility] Anion gap in Serum or Plasma Ordered By: Tony Kay on 02-12-2025 Anion gap [Moles/Vol] 13 mmol/L 5-15 [facility] BUN/creatinine ratioOrdered By: Tony Kay on 02-12-2025 Urea nitrogen/Creatinine [Mass ratio] 19.6 mg/mg - [facility] Basic Metabolic Profile (BMP )on 02-12-2025 BUN/CRE 19.6 RATIO Normal 07-27 [facility] Comment on above: Performed By: #### L 500.4050, L501.5200, L503.0105, L503.6550, L509.1000, L503.6150, L506.0250, L100.0100, L503.6075, L506.1000 #### [facility] [address] [place], [address] Calcium [Mass/Vol] 9.4 mg/dL Normal 7.6-11.0 [facility] Comment on above: Performed By: #### L 500.4050, L501.5200, L503.0105, L503.6550, L509.1000, L503.6150, L506.0250, L100.0100, L503.6075, L506.1000 #### [facility] [address] [place], [address] Chloride [Moles/Vol] 99 mmol/L Normal 98-108 [facility] Comment on above: Performed By: #### L 500.4050, L501.5200, L503.0105, L503.6550, L509.1000, L503.6150, L506.0250, L100.0100, L503.6075, L506.1000 #### [facility] [address] [place], [address] CO2 [Moles/Vol] 28.1 mmol/L Normal 21.0-32.0 [facility] Comment on above: Performed By: #### L 500.4050, L501.5200, L503.0105, L503.6550, L509.1000, L503.6150, L506.0250, L100.0100, L503.6075, L506.1000 #### [facility] [address] [place], [address] Creatinine [Mass/Vol] 1.09 mg/dL Normal 0.70-1.20 [facility] Comment on above: Performed By: #### L 500.4050, L501.5200, L503.0105, L503.6550, L509.1000, L503.6150, L506.0250, L100.0100, L503.6075, L506.1000 #### [facility] [address] [place], [address] GAP 13 Normal 5-15 [facility] Comment on above: Performed By: #### L 500.4050, L501.5200, L503.0105, L503.6550, L509.1000, L503.6150, L506.0250, L100.0100, L503.6075, L506.1000 #### [facility] [address] [facility] [place], [address] GFR/1.73 sq M.predicted among non-blacks MDRD (S/P/Bld) [Vol rate/Area] 73 mL/min/{1.73_m2} Normal >60 [facility] Comment on above: Result Comment: mL/m in/1.73m2 CKD-EPI Creatinine Equation (2020) Performed By: #### L 500.4050, L501.5200, L503.0105, L503.6550, L509.1000, L503.6150, L506.0250, L100.0100, L503.6075, L506.1000 #### [facility] [address] [place], [address] Glucose [Mass/Vol] 152 mg/dL High 70-99 [facility] Comment on above: Performed By: #### L 500.4050, L501.5200, L503.0105, L503.6550, L509.1000, L503.6150, L506.0250, L100.0100, L503.6075, L506.1000 #### [facility] [address] [place], [address] Potassium [Moles/Vol] 3.2 mmol/L Low 3.3-5.1 [facility] Comment on above: Performed By: #### L 500.4050, L501.5200, L503.0105, L503.6550, L509.1000, L503.6150, L506.0250, L100.0100, L503.6075, L506.1000 #### [facility] [address] [place], [place], [phone] (924) Sodium [Moles/Vol] 140 mmol/L Normal 133-145 [facility] Comment on above: Performed By: #### L 500.4050, L501.5200, L503.0105, L503.6550, L509.1000, L503.6150, L506.0250, L100.0100, L503.6075, L506.1000 #### [facility] [address] [place], [place], [id number] (820) Urea nitrogen [Mass/Vol] 21 mg/dL High 4-19 [facility] Comment on above: Performed By: #### L 500.4050, L501.5200, L503.0105, L503.6550, L509.1000, L503.6150, L506.0250, L100.0100, L503.6075, L506.1000 #### [facility] [address] [facility] [address] [place], [place], [id number] Carbon dioxide, total [Moles /volume] in Central venous bloodOrdered By: Tony Kay on 02-12-2025 CO2 [Moles/Vol] 28.1 mmol/L 21.0-32.0 [facility] Chloride assayOrdered By: Diego Kay on 02-12-2025 Chloride [Moles/Vol] 99 mmol/L 98-108 [facility] Glomerular filtration rate ( GFR) estimation/1.73 sq m using serum, plasma, or whole bOrdered By: Tony Kay on 02-12-2025 GFR/1.73 sq M.predicted among non-blacks MDRD (S/P/Bld) [Vol rate/Area] 73 mL/min/{1.73_m2} >60 [facility] Comment on above: mL/min/1.73m2 CKD-EP I Creatinine Equation (2020) Potassium measurement (mass/ volume)Ordered By: Tony Kay on 02-12-2025 Potassium (Unsp spec) [Mass/Vol] 3.2 mmol/L Low 3.3-5.1 [facility] Serum creatinine measurement (mass/volume)Ordered By: Tony Kay on 02-12-2025 Creatinine [Mass/Vol] 1.09 mg/dL 0.70-1.20 [facility] Serum glucose measurement (m ass/volume)Ordered By: Tony Kay on 02-12-2025 Glucose [Mass/Vol] 152 mg/dL High 70-99 [facility] Serum or plasma calcium tracy urement (mass/volume)Ordered By: Tony Kay on 02-12-2025 Calcium [Mass/Vol] 9.4 mg/dL 7.6-11.0 [facility] Serum or plasma urea nitroge n measurement (mass/volume)Ordered By: Tony Kay on 02-12-2025 Urea nitrogen [Mass/Vol] 21 mg/dL High 4-19 [facility] Sodium levelOrdered By: Tony Kay on 02-12-2025 Sodium [Moles/Vol] 140 mmol/L 133-145 [facility] Anion gap in Serum or Plasma Ordered By: Tony Kay on 02-07-2025 Anion gap [Moles/Vol] 14 mmol/L 5-15 [facility] BUN/creatinine ratioOrdered By: Tony Kay on 02-07-2025 Urea nitrogen/Creatinine [Mass ratio] 18.1 mg/mg 10-20 [facility] Basic Metabolic Profile (BMP )on 02-07-2025 BUN/CRE 18.1 RATIO Normal - [facility] Comment on above: Performed By: #### L 500.4050, L501.5200, L503.0105, L503.6550, L509.1000, L503.6150, L506.0250, L100.0100, L503.6075, L506.1000 #### [facility] [address] [place], [address] Calcium [Mass/Vol] 9.6 mg/dL Normal 7.6-11.0 [facility] Comment on above: Performed By: #### L 500.4050, L501.5200, L503.0105, L503.6550, L509.1000, L503.6150, L506.0250, L100.0100, L503.6075, L506.1000 #### [facility] [address] [place], [address] Chloride [Moles/Vol] 95 mmol/L Low 98-108 [facility] Comment on above: Performed By: #### L 500.4050, L501.5200, L503.0105, L503.6550, L509.1000, L503.6150, L506.0250, L100.0100, L503.6075, L506.1000 #### [facility] [address] [facility] [place], [address] CO2 [Moles/Vol] 30.6 mmol/L Normal 21.0-32.0 [facility] Comment on above: Performed By: #### L 500.4050, L501.5200, L503.0105, L503.6550, L509.1000, L503.6150, L506.0250, L100.0100, L503.6075, L506.1000 #### [facility] [address] [facility] [place], [address] Creatinine [Mass/Vol] 1.19 mg/dL Normal 0.70-1.20 [facility] Comment on above: Performed By: #### L 500.4050, L501.5200, L503.0105, L503.6550, L509.1000, L503.6150, L506.0250, L100.0100, L503.6075, L506.1000 #### [facility] [address] [place], [address] GAP 14 Normal 5-15 [facility] Comment on above: Performed By: #### L 500.4050, L501.5200, L503.0105, L503.6550, L509.1000, L503.6150, L506.0250, L100.0100, L503.6075, L506.1000 #### [facility] [address] [place], [address] GFR/1.73 sq M.predicted among non-blacks MDRD (S/P/Bld) [Vol rate/Area] 66 mL/min/{1.73_m2} Normal >60 [facility] Comment on above: Result Comment: mL/m in/1.73m2 CKD-EPI Creatinine Equation (2020) Performed By: #### L 500.4050, L501.5200, L503.0105, L503.6550, L509.1000, L503.6150, L506.0250, L100.0100, L503.6075, L506.1000 #### [facility] [address] [place], [address] Glucose [Mass/Vol] 146 mg/dL High 70-99 [facility] Comment on above: Performed By: #### L 500.4050, L501.5200, L503.0105, L503.6550, L509.1000, L503.6150, L506.0250, L100.0100, L503.6075, L506.1000 #### [facility] [address] [place], [address] Potassium [Moles/Vol] 3.0 mmol/L Low 3.3-5.1 [facility] Comment on above: Result Comment: Hemo lysis present, Results??could be affected. ?? Performed By: #### L 500.4050, L501.5200, L503.0105, L503.6550, L509.1000, L503.6150, L506.0250, L100.0100, L503.6075, L506.1000 #### [facility] [address] [place], [place], [phone] (697) Sodium [Moles/Vol] 140 mmol/L Normal 133-145 [facility] Comment on above: Performed By: #### L 500.4050, L501.5200, L503.0105, L503.6550, L509.1000, L503.6150, L506.0250, L100.0100, L503.6075, L506.1000 #### [facility] [address] [facility] [place], [place], [id number] (971) Urea nitrogen [Mass/Vol] 22 mg/dL High 4-19 [facility] Comment on above: Performed By: #### L 500.4050, L501.5200, L503.0105, L503.6550, L509.1000, L503.6150, L506.0250, L100.0100, L503.6075, L506.1000 #### [facility] [address] [facility] [place], [place], [id number] Carbon dioxide, total [Moles /volume] in Central venous bloodOrdered By: Tony Kay on 02-07-2025 CO2 [Moles/Vol] 30.6 mmol/L 21.0-32.0 [facility] Chloride assayOrdered By: Diego Kay on 02-07-2025 Chloride [Moles/Vol] 95 mmol/L Low 98-108 [facility] Glomerular filtration rate ( GFR) estimation/1.73 sq m using serum, plasma, or whole bOrdered By: Tony Kay on 02-07-2025 GFR/1.73 sq M.predicted among non-blacks MDRD (S/P/Bld) [Vol rate/Area] 66 mL/min/{1.73_m2} >60 [facility] Comment on above: mL/min/1.73m2 CKD-EP I Creatinine Equation (2020) Potassium measurement (mass/ volume)Ordered By: Tony Kay on 02-07-2025 Potassium (Unsp spec) [Mass/Vol] 3.0 mmol/L Low 3.3-5.1 [facility] Comment on above: Hemolysis present, R esults could be affected. Serum creatinine measurement (mass/volume)Ordered By: Tony Kay on 02-07-2025 Creatinine [Mass/Vol] 1.19 mg/dL 0.70-1.20 [facility] Serum glucose measurement (m ass/volume)Ordered By: Tony Kay on 02-07-2025 Glucose [Mass/Vol] 146 mg/dL High 70-99 [facility] Serum or plasma calcium tracy urement (mass/volume)Ordered By: Tony Kay on 02-07-2025 Calcium [Mass/Vol] 9.6 mg/dL 7.6-11.0 [facility] Serum or plasma urea nitroge n measurement (mass/volume)Ordered By: Tony Kay on 02-07-2025 Urea nitrogen [Mass/Vol] 22 mg/dL High 4-19 [facility] Sodium levelOrdered By: Tony Kay on 02-07-2025 Sodium [Moles/Vol] 140 mmol/L 133-[address] [facility] [address] Abd/Pelvis W/WO Contrasto n 02-04-2025 CT Abd/Pelvis W/WO Contrast [facility] [address] [place] [id number] Abd/Pelvis W/WO Contrast MR#: [id number] Acct: [id number] Name: BALTAZAR BAY Rep #: [id number] : 1955 M 69 From: Tim Orozco MD PCP: Dr. Tony Kay MD Status: REG CLI Study: CT Abd/Pelvis W/WO Contrast Date of Exam: 01/08 Exam# [id number] Ordering Dr: Tony Kay MD PROCEDURE: CT [...] 3. Additional description as above. Reading Location: [id number] CC: Dr. Tony Kay MD Sap Portal Developer: Signed Normal [facility] Abdomen Limitedon 01-10-2025 Abdomen Limited [facility] [address] [place], [place] [address] Abdomen Limited MR#: [id number] Acct: [id number] Name: BALTAZAR BAY Rep #: [id number] : 1955 M 69 From: Sebastián Amezcua i, DO PCP: Dr. Tony Kay MD Status: REG CLI Study: Abdomen Limited Date of Exam: 01/10/25 Exam# [id number] Ordering Dr: Tony Kay MD PROCEDURE: Abdominal [...] Location: [facility] CC: Dr. Tony Kay MD Sap Portal Developer: Signed [facility] CNOVon 01-06-2025 [facility] ----- BALTAZAR BAY ([id number]) 1955 M Date Time Provider Department 01/06/25 11:00 AM [facility] During your visit today, we recorded [...] SULFATE A ORAL 1,500 mg, DAILY COENZYME [id number] ORAL 600 mg, 2 TIMES DAILY CPAP AT BEDTIME cyanocobalamin (vitamin B-12) 5,000 mcg Doxepin 6 mg tab ferrous sulfate (IRON) 325 mg (65 mg iron) tablet furosemide (LASIX) 40 mg, DAILY Gabapentin 300 mg ORAL Tab 1 tablet, DAILY GLUCOSAMINE HCL ORAL 1,500 mg, DAILY osvti-gk-9-cer-oic-jzffdo o-ast 593-803-02-64 mg cap Lactobacillus acidophilus (PROBIOTIC ORAL) DAILY [...] distress EXTREMI (more content not included)... Normal [facility] UA DIP, URINE (POC)on 2024 BILIRUBIN UA (POCT) Negative Negative [facility] CLARITY UA (POCT) Clear [facility] COLOR UA (POCT) Yellow [facility] GLUCOSE UA (POCT) Negative Negative mg/dL [facility] Hemoglobin Ql (U) Negative Negative [facility] KETONE UA (POCT) Negative Negative mg/dL [facility] LEUKOCYTES UA (POCT) [facility] NITRITE UA (POCT) Negative Negative [facility] PH UA (POCT) 7 4.5 - 8.0 [facility] Protein Ql (U) Negative Negative mg/dL [facility] SPECIFIC GRAVITY UA (POCT) 1.02 1.005 - 1.030 [facility] UROBILINOGEN UA (POCT) 0.2 Raysa l E.U./dL [facility] Location:[facility], [address], [place], [address] [facility] Anion gap in Serum or Plasma Ordered By: Tony Kay on 01-03-2025 Anion gap [Moles/Vol] 14 mmol/L 02-19 [facility] BUN/creatinine ratioOrdered By: Tony Kay on 01-03-2025 Urea nitrogen/Creatinine [Mass ratio] 19.7 mg/mg 07-27 [facility] Basic Metabolic Profile (BMP )on 01-03-2025 BUN/CRE 19.7 RATIO Normal 07-27 [facility] Comment on above: Performed By: #### L 500.4050, L501.5200, L503.0105, L503.6550, L509.1000, L503.6150, L506.0250, L100.0100, L503.6075, L506.1000 #### [facility] [address] [place], [address] Calcium [Mass/Vol] 9.8 mg/dL Normal 7.6-11.0 [facility] Comment on above: Performed By: #### L 500.4050, L501.5200, L503.0105, L503.6550, L509.1000, L503.6150, L506.0250, L100.0100, L503.6075, L506.1000 #### [facility] [address] [place], [address] Chloride [Moles/Vol] 95 mmol/L Low 98-108 [facility] Comment on above: Performed By: #### L 500.4050, L501.5200, L503.0105, L503.6550, L509.1000, L503.6150, L506.0250, L100.0100, L503.6075, L506.1000 #### [facility] [address] [place], [address] CO2 [Moles/Vol] 29.4 mmol/L Normal 21.0-32.0 [facility] Comment on above: Performed By: #### L 500.4050, L501.5200, L503.0105, L503.6550, L509.1000, L503.6150, L506.0250, L100.0100, L503.6075, L506.1000 #### [facility] [address] [place], [place], [phone] (869) Creatinine [Mass/Vol] 1.20 mg/dL Normal 0.70-1.20 [facility] Comment on above: Performed By: #### L 500.4050, L501.5200, L503.0105, L503.6550, L509.1000, L503.6150, L506.0250, L100.0100, L503.6075, L506.1000 #### [facility] [address] [place], [place], [phone] (635) GAP 14 Normal 5-15 [facility] Comment on above: Performed By: #### L 500.4050, L501.5200, L503.0105, L503.6550, L509.1000, L503.6150, L506.0250, L100.0100, L503.6075, L506.1000 #### [facility] [address] [facility] [address] [place], [place], [phone] (629) GFR/1.73 sq M.predicted among non-blacks MDRD (S/P/Bld) [Vol rate/Area] 65 mL/min/{1.73_m2} Normal >60 [facility] Comment on above: Result Comment: mL/m in/1.73m2 CKD-EPI Creatinine Equation (2020) Performed By: #### L 500.4050, L501.5200, L503.0105, L503.6550, L509.1000, L503.6150, L506.0250, L100.0100, L503.6075, L506.1000 #### [facility] [address] [place], [address] Glucose [Mass/Vol] 154 mg/dL High 70-99 [facility] Comment on above: Performed By: #### L 500.4050, L501.5200, L503.0105, L503.6550, L509.1000, L503.6150, L506.0250, L100.0100, L503.6075, L506.1000 #### [facility] [address] [place], [address] Potassium [Moles/Vol] 3.7 mmol/L Normal 3.3-5.1 [facility] Comment on above: Result Comment: Hemo lysis present, Results??could be affected. ?? Performed By: #### L 500.4050, L501.5200, L503.0105, L503.6550, L509.1000, L503.6150, L506.0250, L100.0100, L503.6075, L506.1000 #### [facility] [address] [place], [address] Sodium [Moles/Vol] 139 mmol/L Normal 133-145 [facility] Comment on above: Performed By: #### L 500.4050, L501.5200, L503.0105, L503.6550, L509.1000, L503.6150, L506.0250, L100.0100, L503.6075, L506.1000 #### [facility] [address] [place], [address] Urea nitrogen [Mass/Vol] 24 mg/dL High 4-19 [facility] Comment on above: Performed By: #### L 500.4050, L501.5200, L503.0105, L503.6550, L509.1000, L503.6150, L506.0250, L100.0100, L503.6075, L506.1000 #### [facility] [address] [place], [address] Carbon dioxide, total [Moles /volume] in Central venous bloodOrdered By: Tony Kay on 01-03-2025 CO2 [Moles/Vol] 29.4 mmol/L 21.0-32.0 [facility] Chloride assayOrdered By: Diego Kay on 01-03-2025 Chloride [Moles/Vol] 95 mmol/L Low 98-108 [facility] GFR/1.73 sq M.predicted abi g non-blacks MDRD (S/P/Bld) [Vol rate/Area]Ordered By: Tony Kay on 01-03-2025 Estimated GFR (MDRD) Non-Af Amer 65 >60 [facility] Comment on above: mL/min/1.73m2 CKD-EP I Creatinine Equation (2020) Glomerular filtration rate ( GFR) estimation/1.73 sq m using serum, plasma, or whole bOrdered By: Tony Kay on 01-03-2025 GFR/1.73 sq M.predicted among non-blacks MDRD (S/P/Bld) [Vol rate/Area] 65 mL/min/{1.73_m2} >60 [facility] Comment on above: mL/min/1.73m2 CKD-EP I Creatinine Equation (2020) Potassium (Unsp spec) [Mass/ Vol]Ordered By: Tony Kay on 01-03-2025 Potassium [Moles/Vol] 3.7 mmol/L 3.3-5.1 [facility] Comment on above: Hemolysis present, R esults could be affected. Potassium measurement (mass/ volume)Ordered By: Tony Kay on 01-03-2025 Potassium (Unsp spec) [Mass/Vol] 3.7 mmol/L 3.3-5.1 [facility] Comment on above: Hemolysis present, R esults could be affected. Serum creatinine measurement (mass/volume)Ordered By: Tony Kay on 01-03-2025 Creatinine [Mass/Vol] 1.20 mg/dL 0.70-1.20 [facility] Serum glucose measurement (m ass/volume)Ordered By: Tony Kay on 01-03-2025 Glucose [Mass/Vol] 154 mg/dL High 70-99 [facility] Serum or plasma calcium tracy urement (mass/volume)Ordered By: Tony Kay on 01-03-2025 Calcium [Mass/Vol] 9.8 mg/dL 7.6-11.0 [facility] Serum or plasma urea nitroge n measurement (mass/volume)Ordered By: Tony Kay on 01-03-2025 Urea nitrogen [Mass/Vol] 24 mg/dL High 4-19 [facility] Sodium levelOrdered By: Tony Kay on 01-03-2025 Sodium [Moles/Vol] 139 mmol/L 133-145 [facility] ACTH Plas-mCncon 01-02-2025 Corticotropin (P) [Mass/Vol] 20.4 pg/mL Normal 7.2-63.3 [facility] Comment on above: Order Comment: Kirsten tomlin Type: BLOOD SPECIMEN Ordering Facility: [facility] Address: [address] [place] [address] Result Comment: ACTH Reference Range: 7-10 am: 7.2 - 63.3 pg/mL Performed By: #### 2 141-0 #### [facility] CLIA [id number] [address] [place] [address] [place] ALDOSTERONE/DIRECT RENIN RAT IOon 01-02-2025 MELISSA RENIN RATIO 0.4 Normal <3.8 [facility] Comment on above: Order Comment: Kirsten tomlin Type: BLOOD SPECIMEN Ordering Facility: [facility] Address: [address] [place] [address] Result Comment: A ra kimo of aldosterone in ng/dL to direct renin in pg/mL greater than or equal to 3.8 is a positive screening test result for primary aldosteronism, when aldosterone is greater than or equal to 15 ng/dL. Performed By: #### A LDREN #### [facility] CLIA [id number] [address] [place] [address] [place] Aldosterone [Mass/Vol] 36.9 ng/dL High 0.0-<35.4 [facility] Comment on above: Order Comment: Kirsten tomlin Type: BLOOD SPECIMEN Ordering Facility: [facility] Address: [address] [place] [address] Result Comment: The reference interval for serum/plasma [...] ng/dL. Performed By: #### A LDREN #### [facility] CLIA [id number] [address] [place] [address] [place] DIRECT RENIN 97.3 pg/mL High 3.6-81.6 [facility] Comment on above: Order Comment: Kirsten tomlin Type: BLOOD SPECIMEN Ordering Facility: [facility] Address: [address] [place] [address] Result Comment: The reference interval for direct [...] ng/dL. Performed By: #### A LDREN #### [facility] CLIA [id number] [address] [place] [address] [place] PATIENT UPRIGHT OR SUPINE Upright Normal [facility] Comment on above: Order Comment: Kirsten tomlin Type: BLOOD SPECIMEN Ordering Facility: [facility] Address: [address] [place] [address] Performed By: #### A LDREN #### [facility] CLIA [id number] [address] [place] [address] [place] Cortrufino Yeboah 01-03-20 25 Cortisol [Mass/Vol] 12.0 ug/dL Normal 4.8-19.5 [facility] Comment on above: Order Comment: Kirsten tomlin Type: BLOOD SPECIMEN Ordering Facility: [facility] Address: [address], [place] [address] Result Comment: Prov ided reference range is from 6-10 AM sample collection time. Cortisol Reference Range: 6-10 AM = 4.8-19.5 ug/dL, 4-8 PM = 2.5-11.9 ug/dL Performed By: #### 2 143-6, K1 #### [facility] CLIA [id number] [address] [place] [address] [place] POTASSIUMon 01-02-2025 Potassium [Moles/Vol] 3.0 mmol/L Low 3.7-5.1 [facility] Comment on above: Order Comment: Speci men Type: BLOOD SPECIMEN Ordering Facility: [facility] Address: [address] [place] [address] Performed By: #### 2 143-6, K1 #### [facility] CLIA [id number] [address] [place] [address] [place] BUN/creatinine ratioOrdered By: Roman Salvador on 12-04-2024 Urea nitrogen/Creatinine [Mass ratio] 22.9 mg/mg High 10-20 [facility] Basic Metabolic Profile (BMP )on 12-04-2024 Anion gap [Moles/Vol] 13 mmol/L Normal 5-15 [facility] Comment on above: Order Comment: Order Date: 08/19/24 Order Info: 0786-1 - CMP Order Info: 23936-3 - MG Order Info: 2500-7 - TIBC Order Info: 2498-4 - FE Order Info: 2276-4 - LUKE Order Info: 2284-8 - FOLS N Performed By: #### L 500.4050, L501.5200, L503.0105, L503.6550, L509.1000, L503.6150, L506.0250, L100.0100, L503.6075, L506.1000 #### [facility] [address] [place], [address] BUN/CRE 22.9 RATIO High - [facility] Comment on above: Order Comment: Order Date: 08/19/24 Order Info: 0786 - CMP Order Info: 31331-6 - MG Order Info: 2500-04 - TIBC Order Info: 2498-01 - FE Order Info: 2276-01 - LUKE Order Info: 8 - FOLS N Performed By: #### L 500.4050, L501.5200, L503.0105, L503.6550, L509.1000, L503.6150, L506.0250, L100.0100, L503.6075, L506.1000 #### [facility] [address] [place], [place], [address] Calcium [Mass/Vol] 10.0 mg/dL Normal 7.6-11.0 [facility] Comment on above: Order Comment: Order Date: 08/19/24 Order Info: 785-10 - CMP Order Info: 55960-7 - MG Order Info: 2500-04 TIBC Order Info: 2498-01 - FE Order Info: 2276-01 - LUKE Order Info: 2284-05 - FOLS N Performed By: #### L 500.4050, L501.5200, L503.0105, L503.6550, L509.1000, L503.6150, L506.0250, L100.0100, L503.6075, L506.1000 #### [facility] [address] [place], [place], [id number] [phone] Chloride [Moles/Vol] 94 mmol/L Low 96-108 [facility] Comment on above: Order Comment: Order Date: 08/19/24 Order Info: 07 - CMP Order Info: 56588-7 - MG Order Info: 2500-04 - TIBC Order Info: 2498-01 - FE Order Info: 2276-01 - LUKE Order Info: 2284-05 - FOLS N Performed By: #### L 500.4050, L501.5200, L503.0105, L503.6550, L509.1000, L503.6150, L506.0250, L100.0100, L503.6075, L506.1000 #### [facility] [address] [place], [place], [address] CO2 [Moles/Vol] 31.3 mmol/L High 22.0-29.0 [facility] Comment on above: Order Comment: Order Date: 08/19/24 Order Info: 86-1 - CMP Order Info: 41001-9 - MG Order Info: 7 - TIBC Order Info: 2498-01 - FE Order Info: 2276-01 - LUKE Order Info: 8 - FOLS N Performed By: #### L 500.4050, L501.5200, L503.0105, L503.6550, L509.1000, L503.6150, L506.0250, L100.0100, L503.6075, L506.1000 #### [facility] [address] [place], [place], [address] [phone] Creatinine [Mass/Vol] 1.2 mg/dL Normal 0.8-1.3 [facility] Comment on above: Order Comment: Order Date: 08/19/24 Order Info: 785-1 - CMP Order Info: 10815-1 - MG Order Info: 7 - TIBC Order Info: 2498-01 - FE Order Info: 2276-01 - LUKE Order Info: 2284-05 - FOLS N Performed By: #### L 500.4050, L501.5200, L503.0105, L503.6550, L509.1000, L503.6150, L506.0250, L100.0100, L503.6075, L506.1000 #### [facility] [address] [place], [place], [address] GFR/1.73 sq M.predicted among non-blacks MDRD (S/P/Bld) [Vol rate/Area] 64 mL/min/{1.73_m2} Normal >60 [facility] Comment on above: Order Comment: Order Date: 08/19/24 Order Info: 86-1 - CMP Order Info: 66295-7 - MG Order Info: 25007 - TIBC Order Info: 2498-01 - FE Order Info: 2276-01 - LUKE Order Info: 8 - FOLS N Result Comment: mL/m in/1.73m2 CKD-EPI Creatinine Equation (2020) Performed By: #### L 500.4050, L501.5200, L503.0105, L503.6550, L509.1000, L503.6150, L506.0250, L100.0100, L503.6075, L506.1000 #### [facility] [address] [place], [address] Glucose [Mass/Vol] 135 mg/dL High 70-99 [facility] Comment on above: Order Comment: Order Date: 08/19/24 Order Info: 0786- - CMP Order Info: 27358-6 - MG Order Info: 2500-04 - TIBC Order Info: 2498-01 - FE Order Info: 2276-01 - LUKE Order Info: 2284-05 - FOLS N Performed By: #### L 500.4050, L501.5200, L503.0105, L503.6550, L509.1000, L503.6150, L506.0250, L100.0100, L503.6075, L506.1000 #### [facility] [address] [place], [address] Potassium [Moles/Vol] 3.3 mmol/L Normal 3.3-5.1 [facility] Comment on above: Order Comment: Order Date: 08/19/24 Order Info: 0786- - CMP Order Info: 23395-6 - MG Order Info: 2500-04 - TIBC Order Info: 2498-01 - FE Order Info: 2276-01 - LUKE Order Info: 2284-05 - FOLS N Performed By: #### L 500.4050, L501.5200, L503.0105, L503.6550, L509.1000, L503.6150, L506.0250, L100.0100, L503.6075, L506.1000 #### [facility] [address] [place], [place], [address] Sodium [Moles/Vol] 138 mmol/L Normal 133-145 [facility] Comment on above: Order Comment: Order Date: 08/19/24 Order Info: 0786-1 - CMP Order Info: 67465-4 - MG Order Info: 7 - TIBC Order Info: 2498-01 - FE Order Info: 2276-01 - LUKE Order Info: 2284-05 - FOLS N Performed By: #### L 500.4050, L501.5200, L503.0105, L503.6550, L509.1000, L503.6150, L506.0250, L100.0100, L503.6075, L506.1000 #### [facility] [address] [facility] [place], [place], [address] [phone] Urea nitrogen [Mass/Vol] 28 mg/dL High 4-19 [facility] Comment on above: Order Comment: Order Date: 08/19/24 Order Info: 0786- - CMP Order Info: 20967-3 - MG Order Info: 2500-04 - TIBC Order Info: 2498-01 - FE Order Info: 2276-01 - LUKE Order Info: 2284-05 - FOLS N Performed By: #### L 500.4050, L501.5200, L503.0105, L503.6550, L509.1000, L503.6150, L506.0250, L100.0100, L503.6075, L506.1000 #### [facility] [address] [place], [place], [address] Carbon dioxide measurementOr dered By: Roman Salvador on 12-04-2024 CO2 [Moles/Vol] 31.3 mmol/L High 22.0-29.0 [facility] Chloride measurementOrdered By: Roman Salvador on 12-04-2024 Chloride [Moles/Vol] 94 mmol/L Low 96-108 [facility] Creatinine [Moles/Vol]Ordere d By: Roman Salvador on 12-04-2024 Creatinine [Mass/Vol] 1.2 mg/dL 0.8-1.3 [facility] GFR/1.73 sq M.predicted abi g non-blacks MDRD (S/P/Bld) [Vol rate/Area]Ordered By: Roman Salvador on 12-04-2024 Estimated GFR (MDRD) Non-Af Amer 64 >60 [facility] Comment on above: mL/min/1.73m2 CKD-EP I Creatinine Equation (2020) Glomerular filtration rate ( GFR) estimation/1.73 sq m using serum, plasma, or whole bOrdered By: Roman Salvador on 12-04-2024 GFR/1.73 sq M.predicted among non-blacks MDRD (S/P/Bld) [Vol rate/Area] 64 mL/min/{1.73_m2} >60 [facility] Comment on above: mL/min/1.73m2 CKD-EP I Creatinine Equation (2020) Serum glucose measurement (m ass/volume)Ordered By: Roman Salvador on 12-04-2024 Glucose [Mass/Vol] 135 mg/dL High 70-99 [facility] Serum or plasma anion gap de termination (moles/volume)Ordered By: Roman Salvador on 12-04-2024 Anion gap [Moles/Vol] 13 mmol/L 5-15 [facility] Serum or plasma calcium tracy urement (mass/volume)Ordered By: Roman Salvador on 12-04-2024 Calcium [Mass/Vol] 10.0 mg/dL 7.6-11.0 [facility] Serum or plasma creatinine m easurement (moles/volume)Ordered By: Roman Salvador on 12-04-2024 Creatinine [Moles/Vol] 1.2 mg/dL 0.8-1.3 [facility] Serum or plasma potassium me asurementOrdered By: Roman Salvador on 12-04-2024 Potassium [Moles/Vol] 3.3 mmol/L 3.3-5.1 [facility] Serum or plasma sodium measu rement (moles/volume)Ordered By: Roman Salvador on 12-04-2024 Sodium [Moles/Vol] 138 mmol/L 133-145 [facility] Serum or plasma urea nitroge n measurement (mass/volume)Ordered By: Roman Salvador on 12-04-2024 Urea nitrogen [Mass/Vol] 28 mg/dL High 4-19 [facility] Basic Metabolic Profile (BMP )on 12-02-2024 BUN/CRE 21.1 RATIO High 10-20 [facility] Comment on above: Order Comment: Order Date: 08/19/24 Order Info: 86-1 - CMP Order Info: 95809-4 - MG Order Info: 7 - TIBC Order Info: 2498-01 - FE Order Info: 2276-01 - LUKE Order Info: 228-8 - FOLS N Performed By: #### L 500.4050, L501.5200, L503.0105, L503.6550, L509.1000, L503.6150, L506.0250, L100.0100, L503.6075, L506.1000 #### [facility] [address] [place], [place], [phone] CA,Total 9.2 mg/dL Normal 8.5-10.1 [facility] Comment on above: Order Comment: Order Date: 08/19/24 Order Info: 785-1 - CMP Order Info: 76371-5 - MG Order Info: 7 - TIBC Order Info: 2498-01 - FE Order Info: 2276-01 - LUKE Order Info: 8 - FOLS N Performed By: #### L 500.4050, L501.5200, L503.0105, L503.6550, L509.1000, L503.6150, L506.0250, L100.0100, L503.6075, L506.1000 #### [facility] [address] [place], [place], [phone] Chloride [Moles/Vol] 95 mmol/L Low 98-107 [facility] Comment on above: Order Comment: Order Date: 08/19/24 Order Info: 86-1 - CMP Order Info: 54406-1 - MG Order Info: 7 - TIBC Order Info: 2498-01 - FE Order Info: 2276-01 - LUKE Order Info: 2284-05 FOLS N Performed By: #### L 500.4050, L501.5200, L503.0105, L503.6550, L509.1000, L503.6150, L506.0250, L100.0100, L503.6075, L506.1000 #### [facility] [address] [place], [place], [address] CO2 [Moles/Vol] 31.0 mmol/L Normal 21.0-32.0 [facility] Comment on above: Order Comment: Order Date: 08/19/24 Order Info: 07-1 - CMP Order Info: 20444-2 - MG Order Info: 2500-04 - TIBC Order Info: 2498-01 - FE Order Info: 2276-01 - LUKE Order Info: 2284-05 FOLS N Performed By: #### L 500.4050, L501.5200, L503.0105, L503.6550, L509.1000, L503.6150, L506.0250, L100.0100, L503.6075, L506.1000 #### [facility] [address] [facility] [place], [place], [address] Creatinine [Mass/Vol] 1.23 mg/dL Normal 0.70-1.30 [facility] Comment on above: Order Comment: Order Date: 08/19/24 Order Info: 0786- - CMP Order Info: 91321-5 - MG Order Info: 2500-04 - TIBC Order Info: 2498-01 - FE Order Info: 2276-01 - LUKE Order Info: 2284-05 FOLS N Result Comment: The validity of the calculated GFR GFRAA in patients over 70 years has not been determined. Clinical correlation is essential. Performed By: #### L 500.4050, L501.5200, L503.0105, L503.6550, L509.1000, L503.6150, L506.0250, L100.0100, L503.6075, L506.1000 #### [facility] [address] [place], [place], [address] EST GFR - AA 75 mL/min Normal >60 [facility] Comment on above: Order Comment: Order Date: 08/19/24 Order Info: 86-1 - CMP Order Info: 73074-6 - MG Order Info: 7 - TIBC Order Info: 2498-01 - FE Order Info: 2276-01 - LUKE Order Info: 2284-05 - FOLS N Result Comment: Afri can Albanian GFR Calc Performed By: #### L 500.4050, L501.5200, L503.0105, L503.6550, L509.1000, L503.6150, L506.0250, L100.0100, L503.6075, L506.1000 #### [facility] [address] [place], [place], [address] GAP 9 Normal 5-15 [facility] Comment on above: Order Comment: Order Date: 08/19/24 Order Info: 785-10 - CMP Order Info: 87139-2 - MG Order Info: 2500-04 - TIBC Order Info: 2498-01 - FE Order Info: 2276-01 LUKE Order Info: 2284-05 FOLS N Performed By: #### L 500.4050, L501.5200, L503.0105, L503.6550, L509.1000, L503.6150, L506.0250, L100.0100, L503.6075, L506.1000 #### [facility] [address] [place], [place], [address] GFR/1.73 sq M.predicted among non-blacks MDRD (S/P/Bld) [Vol rate/Area] 62 mL/min/{1.73_m2} Normal >60 [facility] Comment on above: Order Comment: Order Date: 08/19/24 Order Info: 86-1 - CMP Order Info: 85609-5 - MG Order Info: 2500-04 - TIBC Order Info: 2498-01 - FE Order Info: 2276-01 - LUKE Order Info: 2284-05 FOLS N Result Comment: Non- GFR Calc Performed By: #### L 500.4050, L501.5200, L503.0105, L503.6550, L509.1000, L503.6150, L506.0250, L100.0100, L503.6075, L506.1000 #### [facility] [address] [place], [address] Glucose [Mass/Vol] 135 mg/dL High 74-106 [facility] Comment on above: Order Comment: Order Date: 08/19/24 Order Info: 07 - CMP Order Info: 66681-1 - MG Order Info: 2500-04 - TIBC Order Info: 2498-01 - Order Info: 2276-01 LUKE Order Info: 2284-05 FOLS N Result Comment: Fast ing Glucose result greater than or equal to 126 mg/dL suggests DIABETES MELLITUS per A.D.A. criteria. Performed By: #### L 500.4050, L501.5200, L503.0105, L503.6550, L509.1000, L503.6150, L506.0250, L100.0100, L503.6075, L506.1000 #### [facility] [address] [place], [address] Potassium [Moles/Vol] 2.9 mmol/L Low 3.5-5.1 [facility] Comment on above: Order Comment: Order Date: 08/19/24 Order Info: 07 - CMP Order Info: 27479-4 - MG Order Info: 2500-04 - TIBC Order Info: 2498-01 - FE Order Info: 2276-01 LUKE Order Info: 2284-05 FOLS N Performed By: #### L 500.4050, L501.5200, L503.0105, L503.6550, L509.1000, L503.6150, L506.0250, L100.0100, L503.6075, L506.1000 #### [facility] [address] [place], [place], [address] Sodium [Moles/Vol] 135 mmol/L Low 136-145 [facility] Comment on above: Order Comment: Order Date: 08/19/24 Order Info: 0786-1 - CMP Order Info: 01483-2 - MG Order Info: 7 - TIBC Order Info: 2498-01 - FE Order Info: 2276-01 - LUKE Order Info: 2284-05 - FOLS N Performed By: #### L 500.4050, L501.5200, L503.0105, L503.6550, L509.1000, L503.6150, L506.0250, L100.0100, L503.6075, L506.1000 #### [facility] [address] [place], [place], [address] (319) Urea nitrogen [Mass/Vol] 26 mg/dL High 04-24 [facility] Comment on above: Order Comment: Order Date: 08/19/24 Order Info: 0786-1 - CMP Order Info: 01190-0 - MG Order Info: 2500-04 - TIBC Order Info: 2498-01 - FE Order Info: 2276-01 - LUKE Order Info: 2284-05 - FOLS N Performed By: #### L 500.4050, L501.5200, L503.0105, L503.6550, L509.1000, L503.6150, L506.0250, L100.0100, L503.6075, L506.1000 #### [facility] [address] [place], [place], [address] Blood urea nitrogen (BUN)/cr eatinine ratioOrdered By: Tony Kay on 12-01-2024 Urea nitrogen/Creatinine [Mass ratio] 21.1 mg/mg High 07-27 [facility] Carbon dioxide measurementOr dered By: Tony Kay on 12-01-2024 CO2 [Moles/Vol] 31.0 mmol/L 21.0-32.0 [facility] Chloride measurementOrdered By: Tony Kay on 12-01-2024 Chloride [Moles/Vol] 95 mmol/L Low 98-107 [facility] Estimated glomerular filtrat ion rate (GFR) AmericanOrdered By: Tony Kay on 12-01-2024 Estimated GFR (MDRD) Amer 75 mL/min >60 [facility] Comment on above: GFR Calc Glomerular filtration rate ( GFR) estimationOrdered By: Tony Kay on 12-01-2024 Estimated GFR (MDRD) Non-Af Amer 62 mL/min >60 [facility] Comment on above: Non- GFR Calc GFR/1.73 sq M.predicted among non-blacks MDRD (S/P/Bld) [Vol rate/Area] 62 mL/min/{1.73_m2} >60 [facility] Comment on above: Non- GFR Calc Glucose measurementOrdered B y: Tony Kay on 12-01-2024 Glucose [Mass/Vol] 135 mg/dL High 74-106 [facility] Comment on above: Fasting Glucose resu lt greater than or equal to 126 mg/dL suggests DIABETES MELLITUS per A.D.A. criteria. Potassium measurementOrdered By: Tony Kay on 12-01-2024 Potassium [Moles/Vol] 2.9 mmol/L Low 3.5-5.1 [facility] Serum anion gap measurementO rdered By: Tony Kay on 12-01-2024 Anion gap [Moles/Vol] 9 mmol/L 5-15 [facility] Serum or plasma calcium tracy urement (mass/volume)Ordered By: Tony Kay on 12-01-2024 Calcium [Mass/Vol] 9.2 mg/dL 8.5-10.1 [facility] Serum or plasma creatinine m easurement (mass/volume)Ordered By: Tony Kay on 12-01-2024 Creatinine [Mass/Vol] 1.23 mg/dL 0.70-1.30 [facility] Comment on above: The validity of the calculated GFR & GFRAA in patients over 70 years has not been determined. Clinical correlation is essential. Serum or plasma urea nitroge n measurement (mass/volume)Ordered By: Tony Kay on 12-01-2024 Urea nitrogen [Mass/Vol] 26 mg/dL High 7-18 [facility] Sodium levelOrdered By: Tony Kay on 12-01-2024 Sodium [Moles/Vol] 135 mmol/L Low 136-145 [facility] CNOVon 11-28-2024 CNOV Office Visit (ENWSTR ) ----- [place] ([id number]) 1955 M Date Time Provider Department 11/28/24 [...] on fluid retention. He follows [facility] abstracts, [facility] and [facility] articles, and reports he thought the fluid [...] CT abdomen and pelvis with contrast at [facility] on 06/27/2023 shows unremarkable adrenal glands (scanned [...] (FLORASTOR ORAL) Take by mouth once daily. [id number]-un-[id number]-[id number]-uaimjk o-ast [id number] mg cap zinc sulfate (ZINC-220) 220 mg [...] 10/30/2024) LEVOC (more content not included)... Normal [facility] Adrenocorticotropic Hormoneo n 10-26-2024 ACTH 21.2 pg/mL Normal 7.2-63.3 [facility] Comment on above: Order Comment: Order Date: 08/19/24 Order Info: 0786-1 - CMP Order Info: 25893-4 - MG Order Info: 2500-7 - TIBC Order Info: 2498-4 - FE Order Info: 2276-4 - LUKE Order Info: 2284-8 - FOLS N Result Comment: ACTH reference interval for samples collected between 7 and 10 AM. Performed at: [facility] [address] [id number] [employer] Workers: Carlos Sim MD, Phone: [phone] Performed at: [facility] [address] [id number] [employer] Workers: Hesham Christopher PhD, Phone: [phone] Performed By: #### L 500.4050, L501.5200, L503.0105, L503.6550, L509.1000, L503.6150, L506.0250, L100.0100, L503.6075, L506.1000 #### [facility] [address] [address] [place], [address] Aldosterone, Serumon 025 ALDOSTERONE,S 82.0 ng/dL High 0.0-30.0 [facility] Comment on above: Order Comment: Order Date: 08/19/24 Order Info: 785- - CMP Order Info: 85388-9 - MG Order Info: 7 - TIBC Order Info: 2498-01 FE Order Info: 2276-01 LUKE Order Info: 2284-05 - FOLS N Performed By: #### L 500.4050, L501.5200, L503.0105, L503.6550, L509.1000, L503.6150, L506.0250, L100.0100, L503.6075, L506.1000 #### [facility] [address] [place], [place], [address] Renin, Plasmaon 10-26-2024 RENIN, PLASMA 11.633 ng/mL/hr High 0.167-5.38 0 [facility] Comment on above: Order Comment: Order Date: 08/19/24 Order Info: 785-10 - CMP Order Info: 03974-8 - MG Order Info: 2500-04 - TIBC Order Info: 2498-01 FE Order Info: 2276-01 Order Info: 2284-05 FOLS N Performed By: #### L 500.4050, L501.5200, L503.0105, L503.6550, L509.1000, L503.6150, L506.0250, L100.0100, L503.6075, L506.1000 #### [facility] [address] [place], [place], [address] L3410.9999on 10-19-2024 [facility] Misc. COMMENT Normal . [facility] Comment on above: Order Comment: Order Date: 08/19/24 Order Info: 1 - CMP Order Info: 04197-6 - MG Order Info: 2500-04 - TIBC Order Info: 2498-01 - FE Order Info: 2276-01 LUKE Order Info: 2284-05 - FOLS N Result Comment: Test Ordered: [id number] Cortisol - AM Cortisol - AM 7.7 ug/dL Reference Range: 6.2-19.4 Performed at: [facility] [address] [place], [place] [id number] [employer] Workers: Hesham Christopher PhD, Phone: [phone] Performed By: #### L 500.4050, L501.5200, L503.0105, L503.6550, L509.1000, L503.6150, L506.0250, L100.0100, L503.6075, L506.1000 #### [facility] [address] [place], [place], [address] Adrenocorticotropic hormone (ACTH) measurementOrdered By: Tony Kay on 10-16-2024 Adrenocorticotropic Hormone 21.2 pg/mL 7.2-63.3 [facility] Comment on above: ACTH reference inter shakir for samples collected between 7 and10 AM.Performed at: [address] [id number] Director: Carlos Sim MD, Phone: [phone] at: [place] [id number] [place], [place] [id number] Director: Hesham Christopher PhD, Phone: [phone] Aldosterone, serumOrdered By : Tony Kay on 10-16-2024 Aldosterone 82.0 ng/dL High 0.0-30.0 [facility] Basic Metabolic Profile (BMP )on 10-16-2024 BUN/CRE 19.1 RATIO Normal 10-20 [facility] Comment on above: Order Comment: Order Date: 08/19/24 Order Info: 0786-1 - CMP Order Info: 95266-9 - MG Order Info: 2500-7 - TIBC Order Info: 2498-4 - FE Order Info: 2276-4 - LUKE Order Info: 2284-8 - FOLS N Performed By: #### L 500.4050, L501.5200, L503.0105, L503.6550, L509.1000, L503.6150, L506.0250, L100.0100, L503.6075, L506.1000 #### [facility] [address] [place], [address] CA,Total 9.5 mg/dL Normal 8.5-10.1 [facility] Comment on above: Order Comment: Order Date: 08/19/24 Order Info: 0786-1 - CMP Order Info: 21828-6 - MG Order Info: 2500-7 - TIBC Order Info: 4 - FE Order Info: 2276-01 - LUKE Order Info: 8 - FOLS N Performed By: #### L 500.4050, L501.5200, L503.0105, L503.6550, L509.1000, L503.6150, L506.0250, L100.0100, L503.6075, L506.1000 #### [facility] [address] [place], [address] Chloride [Moles/Vol] 101 mmol/L Normal 98-107 [facility] Comment on above: Order Comment: Order Date: 08/19/24 Order Info: 07-1 - CMP Order Info: 77353-8 - MG Order Info: 2500-04 - TIBC Order Info: 2498-01 - FE Order Info: 2276-01 - LUKE Order Info: 8 - FOLS N Performed By: #### L 500.4050, L501.5200, L503.0105, L503.6550, L509.1000, L503.6150, L506.0250, L100.0100, L503.6075, L506.1000 #### [facility] [address] [place], [address] CO2 [Moles/Vol] 30.0 mmol/L Normal 21.0-32.0 [facility] Comment on above: Order Comment: Order Date: 08/19/24 Order Info: 0786-1 - CMP Order Info: 70551-6 - MG Order Info: 25007 - TIBC Order Info: 4 - FE Order Info: 2276-01 - LUKE Order Info: 8 - FOLS N Performed By: #### L 500.4050, L501.5200, L503.0105, L503.6550, L509.1000, L503.6150, L506.0250, L100.0100, L503.6075, L506.1000 #### [facility] [address] [place], [place], [id number] (253) Creatinine [Mass/Vol] 1.41 mg/dL High 0.70-1.30 [facility] Comment on above: Order Comment: Order Date: 08/19/24 Order Info: 07 - CMP Order Info: 60773-1 - MG Order Info: 2500-04 - TIBC Order Info: 2498-01 - Order Info: 2276-01 - LUKE Order Info: 2284-05 FOLS N Result Comment: The validity of the calculated GFR GFRAA in patients over 70 years has not been determined. Clinical correlation is essential. Performed By: #### L 500.4050, L501.5200, L503.0105, L503.6550, L509.1000, L503.6150, L506.0250, L100.0100, L503.6075, L506.1000 #### [facility] [address] [place], [place], [phone] (791) EST GFR - AA 64 mL/min Normal >60 [facility] Comment on above: Order Comment: Order Date: 08/19/24 Order Info: 07 - CMP Order Info: 28508-1 - MG Order Info: 2500-04 - TIBC Order Info: 2498-01 FE Order Info: 2276-01 - LUKE Order Info: 2284-05 - FOLS N Result Comment: Afri can Albanian GFR Calc Performed By: #### L 500.4050, L501.5200, L503.0105, L503.6550, L509.1000, L503.6150, L506.0250, L100.0100, L503.6075, L506.1000 #### [facility] [address] [place], [address] GAP 6 Normal 5-15 [facility] Comment on above: Order Comment: Order Date: 08/19/24 Order Info: 785- - CMP Order Info: 03662-1 - MG Order Info: 2500-04 - TIBC Order Info: 2498-01 - FE Order Info: 2276-01 - LUKE Order Info: 2284-05 - FOLS N Performed By: #### L 500.4050, L501.5200, L503.0105, L503.6550, L509.1000, L503.6150, L506.0250, L100.0100, L503.6075, L506.1000 #### [facility] [address] [place], [address] GFR/1.73 sq M.predicted among non-blacks MDRD (S/P/Bld) [Vol rate/Area] 53 mL/min/{1.73_m2} Low >60 [facility] Comment on above: Order Comment: Order Date: 08/19/24 Order Info: 785-10 - CMP Order Info: 87993-8 - MG Order Info: 2500-04 - TIBC Order Info: 2498-01 - FE Order Info: 2276-01 - LUKE Order Info: 2284-05 - FOLS N Result Comment: Non- GFR Calc Performed By: #### L 500.4050, L501.5200, L503.0105, L503.6550, L509.1000, L503.6150, L506.0250, L100.0100, L503.6075, L506.1000 #### [facility] [address] [place], [place], [id number] Glucose [Mass/Vol] 136 mg/dL High 74-106 [facility] Comment on above: Order Comment: Order Date: 08/19/24 Order Info: 785-10 - CMP Order Info: 55850-4 - MG Order Info: 2500-04 - TIBC Order Info: 2498-01 - FE Order Info: 2276-01 - LUKE Order Info: 2284-05 - FOLS N Result Comment: Fast ing Glucose result greater than or equal to 126 mg/dL suggests DIABETES MELLITUS per A.D.A. criteria. Performed By: #### L 500.4050, L501.5200, L503.0105, L503.6550, L509.1000, L503.6150, L506.0250, L100.0100, L503.6075, L506.1000 #### [facility] [address] [place], [address] Potassium [Moles/Vol] 3.7 mmol/L Normal 3.5-5.1 [facility] Comment on above: Order Comment: Order Date: 08/19/24 Order Info: 0786- - CMP Order Info: 06396-5 - MG Order Info: 2500-04 - TIBC Order Info: 2498-01 FE Order Info: 2276-01 LUKE Order Info: 2284-05 - FOLS N Performed By: #### L 500.4050, L501.5200, L503.0105, L503.6550, L509.1000, L503.6150, L506.0250, L100.0100, L503.6075, L506.1000 #### [facility] [address] [place], [address] Sodium [Moles/Vol] 137 mmol/L Normal 136-145 [facility] Comment on above: Order Comment: Order Date: 08/19/24 Order Info: 0786- - CMP Order Info: 62685-9 - MG Order Info: 2500-04 TIBC Order Info: 2498-01 - FE Order Info: 2276-01 - LUKE Order Info: 2284-05 - FOLS N Performed By: #### L 500.4050, L501.5200, L503.0105, L503.6550, L509.1000, L503.6150, L506.0250, L100.0100, L503.6075, L506.1000 #### [facility] [address] [place], [address] Urea nitrogen [Mass/Vol] 27 mg/dL High 7-18 [facility] Comment on above: Order Comment: Order Date: 08/19/24 Order Info: 0786-1 - CMP Order Info: 07653-1 - MG Order Info: 2500-7 - TIBC Order Info: 2498-4 - FE Order Info: 2276-4 - LUKE Order Info: 2284-8 - FOLS N Performed By: #### L 500.4050, L501.5200, L503.0105, L503.6550, L509.1000, L503.6150, L506.0250, L100.0100, L503.6075, L506.1000 #### [facility] [place], [address] Blood urea nitrogen (BUN)/cr eatinine ratioOrdered By: Tony Kay on 10-16-2024 Urea nitrogen/Creatinine [Mass ratio] 19.1 mg/mg 10-20 [facility] Carbon dioxide measurementOr dered By: Tony Kay on 10-16-2024 CO2 [Moles/Vol] 30.0 mmol/L 21.0-32.0 [facility] Chloride measurementOrdered By: Tony Kay on 10-16-2024 Chloride [Moles/Vol] 101 mmol/L 98-107 [facility] Estimated glomerular filtrat ion rate (GFR) AmericanOrdered By: Tony Kay on 10-16-2024 Estimated GFR (MDRD) Amer 64 mL/min >60 [facility] Comment on above: GFR Calc Glomerular filtration rate ( GFR) estimationOrdered By: Tony Kay on 10-16-2024 Estimated GFR (MDRD) Non-Af Amer 53 mL/min Low >60 [facility] Comment on above: Non- GFR Calc Glucose measurementOrdered B y: Tony Kay on 10-16-2024 Glucose [Mass/Vol] 136 mg/dL High 74-106 [facility] Comment on above: Fasting Glucose resu lt greater than or equal to 126 mg/dL suggests DIABETES MELLITUS per A.D.A. criteria. No Panel InformationOrdered By: Tony Kay on 10-16-2024 Miscellaneous Test COMMENT . [facility] Comment on above: Test Ordered: [id number] Cortisol - AMCortisol - AM 7.7 ug/dL CB Reference Range: 6.2-19.4Performed at: - [facility] [address] [id number] Director: Hesham Christopher PhD, Phone: [phone] Potassium measurementOrdered By: Tony Kay on 10-16-2024 Potassium [Moles/Vol] 3.7 mmol/L 3.5-5.1 [facility] Renin (P) [Catalytic activit y/Vol]Ordered By: Tony Kay on 10-16-2024 Renin 11.633 ng/mL/hr High 0.167-5.38 0 [facility] Serum anion gap measurementO rdered By: Tony Kay on 10-16-2024 Anion gap [Moles/Vol] 6 mmol/L 5-15 [facility] Serum or plasma calcium tracy urement (mass/volume)Ordered By: Tony Kay on 10-16-2024 Calcium [Mass/Vol] 9.5 mg/dL 8.5-10.1 [facility] Serum or plasma creatinine m easurement (mass/volume)Ordered By: Tony Kay on 10-16-2024 Creatinine [Mass/Vol] 1.41 mg/dL High 0.70-1.30 [facility] Comment on above: The validity of the calculated GFR & GFRAA in patients over 70 years has not been determined. Clinical correlation is essential. Serum or plasma urea nitroge n measurement (mass/volume)Ordered By: Tony Kay on 10-16-2024 Urea nitrogen [Mass/Vol] 27 mg/dL High 7-18 [facility] Sodium levelOrdered By: Tony Kay on 10-16-2024 Sodium [Moles/Vol] 137 mmol/L 136-145 [facility] 99-YM-Sjywyjz DOrdered By: Willian Kay on 08-20-2024 Vitamin D 25-Hydroxy 46.6 ng/mL [facility] Comment on above: Vitamin D 25(OH) Sta tus Range Deficiency <20 ng/mL (50nmol/L) Insufficiency 20 - 30 ng/mL (50 - 75 nmol/L) Sufficiency 30 - 100 ng/mL (75 - 250 nmol/L) Toxicity >100 ng/mL (>250 nmol/L) Absolute neutrophil countOrd ered By: Tony Kay on 08-20-2024 Neutrophils (Bld) [#/Vol] 3.6 10*3/uL 2.0-7.7 [facility] Albumin to globulin ratioOrd ered By: Tony Kay on 08-20-2024 Albumin/Globulin [Mass ratio] 0.7 {ratio} Low 0.9-2.4 [facility] Basophil percentageOrdered B y: Tony Kay on 08-20-2024 Basophils/100 WBC (Bld) 0.8 % 0-1 [facility] Bilirubin, totalOrdered By: Tony Kay on 08-20-2024 Bilirubin [Mass/Vol] 0.40 mg/dL 0.20-1.00 [facility] Comment on above: For patients on eltr ombopag therapy, use of Dimension [place] TBIL is not recommended. Blood urea nitrogen (BUN)/cr eatinine ratioOrdered By: Tony Kay on 08-20-2024 Urea nitrogen/Creatinine [Mass ratio] 20.0 mg/mg 10-20 [facility] CBC W/Diff, Automatedon 08-08 Absolute Lymph 1.70 X10 3/uL Normal 0.83-4.51 [facility] Comment on above: Order Comment: Order Date: 08/19/24 Order Info: 01801-06 - CBCD Performed By: #### L 500.4050, L501.5200, L503.0105, L503.6550, L509.1000, L503.6150, L506.0250, L100.0100, L503.6075, L506.1000 #### [facility] [address] [place] [address], [address] Absolute Neut 3.6 X10 3/uL Normal 2.0-7.7 [facility] Comment on above: Order Comment: Order Date: 08/19/24 Order Info: 01801-06 - CBCD Performed By: #### L 500.4050, L501.5200, L503.0105, L503.6550, L509.1000, L503.6150, L506.0250, L100.0100, L503.6075, L506.1000 #### [facility] [address] [place], [address] Basophils/100 WBC (Bld) 0.8 % Normal 0-1 [facility] Comment on above: Order Comment: Order Date: 08/19/24 Order Info: 018- - CBCD Performed By: #### L 500.4050, L501.5200, L503.0105, L503.6550, L509.1000, L503.6150, L506.0250, L100.0100, L503.6075, L506.1000 #### [facility] [address] [facility] [place], [address] Eosinophils/100 WBC (Bld) 2.1 % Normal 0-5 [facility] Comment on above: Order Comment: Order Date: 08/19/24 Order Info: 018- - CBCD Performed By: #### L 500.4050, L501.5200, L503.0105, L503.6550, L509.1000, L503.6150, L506.0250, L100.0100, L503.6075, L506.1000 #### [facility] [address] [place], [address] Erythrocyte distribution width (RBC) [Ratio] 16.9 % High 11.6-14.6 [facility] Comment on above: Order Comment: Order Date: 08/19/24 Order Info: 018- - CBCD Performed By: #### L 500.4050, L501.5200, L503.0105, L503.6550, L509.1000, L503.6150, L506.0250, L100.0100, L503.6075, L506.1000 #### [facility] [address] [place], [address] Hematocrit (Bld) [Volume fraction] 47.5 % Normal 40-54 [facility] Comment on above: Order Comment: Order Date: 08/19/24 Order Info: 0184-1 - CBCD Performed By: #### L 500.4050, L501.5200, L503.0105, L503.6550, L509.1000, L503.6150, L506.0250, L100.0100, L503.6075, L506.1000 #### [facility] [address] [place], [address] Hemoglobin (Bld) [Mass/Vol] 15.1 g/dL Normal 13.0-16.5 [facility] Comment on above: Order Comment: Order Date: 08/19/24 Order Info: 0184- - CBCD Performed By: #### L 500.4050, L501.5200, L503.0105, L503.6550, L509.1000, L503.6150, L506.0250, L100.0100, L503.6075, L506.1000 #### [facility] [address] [place], [address] IG% 0.500 Normal 0.0-0.9 [facility] Comment on above: Order Comment: Order Date: 08/19/24 Order Info: 0184- - CBCD Result Comment: IG% - Immature Granulocytes (promyelocytes, myelocytes and metamyelocytes) > 1% indicates that a LEFT SHIFT is Present. Performed By: #### L 500.4050, L501.5200, L503.0105, L503.6550, L509.1000, L503.6150, L506.0250, L100.0100, L503.6075, L506.1000 #### [facility] [address] [place], [address] Lymphocytes/100 WBC (Bld) 27.8 % Normal 19-41 [facility] Comment on above: Order Comment: Order Date: 08/19/24 Order Info: 0184-1 - CBCD Performed By: #### L 500.4050, L501.5200, L503.0105, L503.6550, L509.1000, L503.6150, L506.0250, L100.0100, L503.6075, L506.1000 #### [facility] [address] [place], [address] MCH (RBC) [Entitic mass] 27.2 pg Normal 27.0-32.0 [facility] Comment on above: Order Comment: Order Date: 08/19/24 Order Info: 018- - CBCD Performed By: #### L 500.4050, L501.5200, L503.0105, L503.6550, L509.1000, L503.6150, L506.0250, L100.0100, L503.6075, L506.1000 #### [facility] [address] [place], [address] MCHC (RBC) [Mass/Vol] 31.8 g/dL Low 32-36 [facility] Comment on above: Order Comment: Order Date: 08/19/24 Order Info: 018- - CBCD Performed By: #### L 500.4050, L501.5200, L503.0105, L503.6550, L509.1000, L503.6150, L506.0250, L100.0100, L503.6075, L506.1000 #### [facility] [address] [place], [address] MCV (RBC) [Entitic vol] 85.6 fL Normal 80-94 [facility] Comment on above: Order Comment: Order Date: 08/19/24 Order Info: 018- - CBCD Performed By: #### L 500.4050, L501.5200, L503.0105, L503.6550, L509.1000, L503.6150, L506.0250, L100.0100, L503.6075, L506.1000 #### [facility] [address] [place], [address] Monocytes/100 WBC (Bld) 10.0 % Normal 0-10 [facility] Comment on above: Order Comment: Order Date: 08/19/24 Order Info: 0184-1 - CBCD Performed By: #### L 500.4050, L501.5200, L503.0105, L503.6550, L509.1000, L503.6150, L506.0250, L100.0100, L503.6075, L506.1000 #### [facility] [address] [place], [address] Neutrophils/100 WBC (Bld) 58.8 % Normal 47-70 [facility] Comment on above: Order Comment: Order Date: 08/19/24 Order Info: 0184- - CBCD Performed By: #### L 500.4050, L501.5200, L503.0105, L503.6550, L509.1000, L503.6150, L506.0250, L100.0100, L503.6075, L506.1000 #### [facility] [address] [place], [address] Nucleated RBC (Bld) [#/Vol] 0 10*3/uL Normal 0-5 [facility] Comment on above: Order Comment: Order Date: 08/19/24 Order Info: 0184-1 - CBCD Performed By: #### L 500.4050, L501.5200, L503.0105, L503.6550, L509.1000, L503.6150, L506.0250, L100.0100, L503.6075, L506.1000 #### [facility] [address] [place], [address] Platelet mean volume (Bld) [Entitic vol] 10.3 fL Normal 6.2-12.0 [facility] Comment on above: Order Comment: Order Date: 08/19/24 Order Info: 0184-1 - CBCD Performed By: #### L 500.4050, L501.5200, L503.0105, L503.6550, L509.1000, L503.6150, L506.0250, L100.0100, L503.6075, L506.1000 #### [facility] [address] [place], [address] Platelets (Bld) [#/Vol] 273 10*3/uL Normal 150-450 [facility] Comment on above: Order Comment: Order Date: 08/19/24 Order Info: 0184- - CBCD Performed By: #### L 500.4050, L501.5200, L503.0105, L503.6550, L509.1000, L503.6150, L506.0250, L100.0100, L503.6075, L506.1000 #### [facility] [address] [place], [address] RBC (Bld) [#/Vol] 5.55 10*6/uL Normal 4.6-6.2 [facility] Comment on above: Order Comment: Order Date: 08/19/24 Order Info: 0184- - CBCD Performed By: #### L 500.4050, L501.5200, L503.0105, L503.6550, L509.1000, L503.6150, L506.0250, L100.0100, L503.6075, L506.1000 #### [facility] [address] [place], [address] RDW SD 51.9 fl High 35.1-43.9 [facility] Comment on above: Order Comment: Order Date: 08/19/24 Order Info: 0184-1 - CBCD Performed By: #### L 500.4050, L501.5200, L503.0105, L503.6550, L509.1000, L503.6150, L506.0250, L100.0100, L503.6075, L506.1000 #### [facility] [address] [place], [place], [id number] WBC (Bld) [#/Vol] 6.1 10*3/uL Normal 4.4-11.0 [facility] Comment on above: Order Comment: Order Date: 08/19/24 Order Info: 0184-1 - CBCD Performed By: #### L 500.4050, L501.5200, L503.0105, L503.6550, L509.1000, L503.6150, L506.0250, L100.0100, L503.6075, L506.1000 #### [facility] [address] [place], [address] Carbon dioxide measurementOr dered By: Tony Kay on 08-20-2024 CO2 [Moles/Vol] 27.0 mmol/L 21.0-32.0 [facility] Chloride measurementOrdered By: Tony Kay on 08-20-2024 Chloride [Moles/Vol] 103 mmol/L 98-107 [facility] Comprehensive Metabolic Prof ilon 08-20-2024 Albumin [Mass/Vol] 3.2 g/dL Normal 3.2-5.0 [facility] Comment on above: Order Comment: Order Date: 08/19/24 Order Info: 0786-1 - CMP Order Info: 75141-3 - MG Order Info: 2500-7 - TIBC Order Info: 2498-4 - FE Order Info: 2276-4 - LUKE Order Info: 2284-8 - FOLS N Performed By: #### L 500.4050, L501.5200, L503.0105, L503.6550, L509.1000, L503.6150, L506.0250, L100.0100, L503.6075, L506.1000 #### [facility] [address] [place], [place], [id number] Albumin/Globulin [Mass ratio] 0.7 {ratio} Low 0.9-2.4 [facility] Comment on above: Order Comment: Order Date: 08/19/24 Order Info: 0786-1 - CMP Order Info: 28622-0 - MG Order Info: 2500-04 - TIBC Order Info: 4 - FE Order Info: 2276-01 - LUKE Order Info: 2284-05 - FOLS N Performed By: #### L 500.4050, L501.5200, L503.0105, L503.6550, L509.1000, L503.6150, L506.0250, L100.0100, L503.6075, L506.1000 #### [facility] [address] [place], [place], [phone] (608) ALK P 75 U/L Normal 45-117 [facility] Comment on above: Order Comment: Order Date: 08/19/24 Order Info: 1 - CMP Order Info: 42770-6 - MG Order Info: 2500-04 - TIBC Order Info: 2498-01 - FE Order Info: 2276-01 - LUKE Order Info: 2284-05 - FOLS N Performed By: #### L 500.4050, L501.5200, L503.0105, L503.6550, L509.1000, L503.6150, L506.0250, L100.0100, L503.6075, L506.1000 #### [facility] [address] [place], [phone] (042) ALT [Catalytic activity/Vol] 38 U/L Normal 16-61 [facility] Comment on above: Order Comment: Order Date: 08/19/24 Order Info: 1 - CMP Order Info: 23995-2 - MG Order Info: 2500-04 - TIBC Order Info: 2498-01 - FE Order Info: 2276-01 - LUKE Order Info: 2284-05 - FOLS N Performed By: #### L 500.4050, L501.5200, L503.0105, L503.6550, L509.1000, L503.6150, L506.0250, L100.0100, L503.6075, L506.1000 #### [facility] [address] [place], [place], [id number] AST [Catalytic activity/Vol] 22 U/L Normal 15-37 [facility] Comment on above: Order Comment: Order Date: 08/19/24 Order Info: 785- - CMP Order Info: 62212-5 - MG Order Info: 2499-7 - TIBC Order Info: 24984 - FE Order Info: 2276-01 - LUKE Order Info: 2284-05 - FOLS N Performed By: #### L 500.4050, L501.5200, L503.0105, L503.6550, L509.1000, L503.6150, L506.0250, L100.0100, L503.6075, L506.1000 #### [facility] [address] [place], [place], [id number] Bilirubin [Mass/Vol] 0.40 mg/dL Normal 0.20-1.00 [facility] Comment on above: Order Comment: Order Date: 08/19/24 Order Info: 785-10 - CMP Order Info: 45812-8 - MG Order Info: 2500-04 - TIBC Order Info: 2498-01 - FE Order Info: 2276-01 - LUKE Order Info: 2284-05 - FOLS N Result Comment: For patients on eltrombopag therapy, use of Dimension [place] TBIL is not recommended. Performed By: #### L 500.4050, L501.5200, L503.0105, L503.6550, L509.1000, L503.6150, L506.0250, L100.0100, L503.6075, L506.1000 #### [facility] [address] [place], [place], [phone] BUN/CRE 20.0 RATIO Normal 10-20 [facility] Comment on above: Order Comment: Order Date: 08/19/24 Order Info: 785-1 - CMP Order Info: 21418-6 - MG Order Info: 7 - TIBC Order Info: 2494 - FE Order Info: 2276-01 - LUKE Order Info: 2284-05 - FOLS N Performed By: #### L 500.4050, L501.5200, L503.0105, L503.6550, L509.1000, L503.6150, L506.0250, L100.0100, L503.6075, L506.1000 #### [facility] [address] [place], [address] CA,Total 9.5 mg/dL Normal 8.5-10.1 [facility] Comment on above: Order Comment: Order Date: 08/19/24 Order Info: 0786- - CMP Order Info: 47212-2 - MG Order Info: 2500-04 - TIBC Order Info: 2498-01 - FE Order Info: 2276-01 - LUKE Order Info: 2284-05 - FOLS N Performed By: #### L 500.4050, L501.5200, L503.0105, L503.6550, L509.1000, L503.6150, L506.0250, L100.0100, L503.6075, L506.1000 #### [facility] [address] [place], [address] Chloride [Moles/Vol] 103 mmol/L Normal 98-107 [facility] Comment on above: Order Comment: Order Date: 08/19/24 Order Info: 0786- - CMP Order Info: 07546-4 - MG Order Info: 2500-04 - TIBC Order Info: 2498-01 - FE Order Info: 2276-01 - LUKE Order Info: 2284-05 - FOLS N Performed By: #### L 500.4050, L501.5200, L503.0105, L503.6550, L509.1000, L503.6150, L506.0250, L100.0100, L503.6075, L506.1000 #### [facility] [address] [place], [address] CO2 [Moles/Vol] 27.0 mmol/L Normal 21.0-32.0 [facility] Comment on above: Order Comment: Order Date: 08/19/24 Order Info: -1 - CMP Order Info: 47942-0 - MG Order Info: 7 - TIBC Order Info: 2498-01 - FE Order Info: 2276-01 - LUKE Order Info: 2284-05 - FOLS N Performed By: #### L 500.4050, L501.5200, L503.0105, L503.6550, L509.1000, L503.6150, L506.0250, L100.0100, L503.6075, L506.1000 #### [facility] [address] [place], [place], [id number] Creatinine [Mass/Vol] 1.20 mg/dL Normal 0.70-1.30 [facility] Comment on above: Order Comment: Order Date: 08/19/24 Order Info: 785-10 - CMP Order Info: 23685-4 - MG Order Info: 2500-04 - TIBC Order Info: 2498-01 - FE Order Info: 2276-01 - LUKE Order Info: 2284-05 - FOLS N Result Comment: The validity of the calculated GFR GFRAA in patients over 70 years has not been determined. Clinical correlation is essential. Performed By: #### L 500.4050, L501.5200, L503.0105, L503.6550, L509.1000, L503.6150, L506.0250, L100.0100, L503.6075, L506.1000 #### [facility] [address] [place], [address] EST GFR - AA 77 mL/min Normal >60 [facility] Comment on above: Order Comment: Order Date: 08/19/24 Order Info: 1 - CMP Order Info: 50503-8 - MG Order Info: 7 - TIBC Order Info: 2498-01 - FE Order Info: 2276-01 - LUKE Order Info: 2284-05 - FOLS N Result Comment: Afri can [place] GFR Calc Performed By: #### L 500.4050, L501.5200, L503.0105, L503.6550, L509.1000, L503.6150, L506.0250, L100.0100, L503.6075, L506.1000 #### [facility] [address] [place], [place], [address] [phone] 7 Normal 5-15 [facility] [facility] Comment on above: Order Comment: Order Date: 08/19/24 Order Info: 07- - CMP Order Info: 94854-6 - MG Order Info: 2500-04 - TIBC Order Info: 2498-01 - FE Order Info: 2276-01 - LUKE Order Info: 2284-05 - FOLS N Performed By: #### L 500.4050, L501.5200, L503.0105, L503.6550, L509.1000, L503.6150, L506.0250, L100.0100, L503.6075, L506.1000 #### [facility] [address] [place], [place], [id number] [phone] GFR/1.73 sq M.predicted among non-blacks MDRD (S/P/Bld) [Vol rate/Area] 64 mL/min/{1.73_m2} Normal >60 [facility] Comment on above: Order Comment: Order Date: 08/19/24 Order Info: 785- - CMP Order Info: 00366-4 - MG Order Info: 2500-04 - TIBC Order Info: 2498-01 - FE Order Info: 2276-01 - LUKE Order Info: 2284-05 - FOLS N Result Comment: Non- GFR Calc Performed By: #### L 500.4050, L501.5200, L503.0105, L503.6550, L509.1000, L503.6150, L506.0250, L100.0100, L503.6075, L506.1000 #### [facility] [address] [place], [place], [address] (230) Globulin (S) [Mass/Vol] 4.9 g/dL High 2.2-4.2 [facility] Comment on above: Order Comment: Order Date: 08/19/24 Order Info: 785-10 - CMP Order Info: 30092-0 - MG Order Info: 2500-04 - TIBC Order Info: 2498-01 - FE Order Info: 2276-01 - LUKE Order Info: 2284-05 - FOLS N Performed By: #### L 500.4050, L501.5200, L503.0105, L503.6550, L509.1000, L503.6150, L506.0250, L100.0100, L503.6075, L506.1000 #### [facility] [address] [place], [place], [id number] Glucose [Mass/Vol] 108 mg/dL High 74-106 [facility] Comment on above: Order Comment: Order Date: 08/19/24 Order Info: 785-10 - CMP Order Info: 45072-7 - MG Order Info: 2500-04 - TIBC Order Info: 2498-01 FE Order Info: 2276-01 LUKE Order Info: 2284-05 - FOLS N Result Comment: Fast ing Glucose result from 100 to 125 mg/dL suggests IMPAIRED HOMEOSTASIS per A.D.A. criteria. Performed By: #### L 500.4050, L501.5200, L503.0105, L503.6550, L509.1000, L503.6150, L506.0250, L100.0100, L503.6075, L506.1000 #### [facility] [address] [place], [address] Potassium [Moles/Vol] 3.8 mmol/L Normal 3.5-5.1 [facility] Comment on above: Order Comment: Order Date: 08/19/24 Order Info: 785-10 - CMP Order Info: 45344-3 - MG Order Info: 2500-04 - TIBC Order Info: 2498-01 - FE Order Info: 2276-01 - LUKE Order Info: 2284-05 FOLS N Performed By: #### L 500.4050, L501.5200, L503.0105, L503.6550, L509.1000, L503.6150, L506.0250, L100.0100, L503.6075, L506.1000 #### [facility] [address] [place], [address] Sodium [Moles/Vol] 137 mmol/L Normal 136-145 [facility] Comment on above: Order Comment: Order Date: 08/19/24 Order Info: 86-1 - CMP Order Info: 46711-7 - MG Order Info: 2500-04 - TIBC Order Info: 2498-01 - FE Order Info: 2276-01 - LUKE Order Info: 228-8 - FOLS N Performed By: #### L 500.4050, L501.5200, L503.0105, L503.6550, L509.1000, L503.6150, L506.0250, L100.0100, L503.6075, L506.1000 #### [facility] [address] [place], [address] T PROT 8.1 g/dL Normal 6.4-8.2 [facility] Comment on above: Order Comment: Order Date: 08/19/24 Order Info: 785-1 - CMP Order Info: 49031-2 - MG Order Info: 2500-04 - TIBC Order Info: 2498-01 - FE Order Info: 2276-01 - LUKE Order Info: 8 - FOLS N Performed By: #### L 500.4050, L501.5200, L503.0105, L503.6550, L509.1000, L503.6150, L506.0250, L100.0100, L503.6075, L506.1000 #### [facility] [address] [place], [address] Urea nitrogen [Mass/Vol] 24 mg/dL High 7-18 [facility] Comment on above: Order Comment: Order Date: 08/19/24 Order Info: 86-1 - CMP Order Info: 84928-5 - MG Order Info: 7 - TIBC Order Info: 2498-01 - FE Order Info: 2276-01 - LUKE Order Info: 2284-05 - FOLS N Performed By: #### L 500.4050, L501.5200, L503.0105, L503.6550, L509.1000, L503.6150, L506.0250, L100.0100, L503.6075, L506.1000 #### [facility] [address] [place], [place], [id number] Eosinophil percentageOrdered By: Tony Kay on 08-20-2024 Eosinophils/100 WBC (Bld) 2.1 % 0-5 [facility] Erythrocyte distribution wid th ratioOrdered By: Tony Kay on 08-20-2024 Erythrocyte distribution width (RBC) [Ratio] 16.9 % High 11.6-14.6 [facility] Erythrocyte distribution wid th standard deviationOrdered By: Tony Kay on 08-20-2024 Erythrocyte distribution width (RBC) [Entitic vol] 51.9 fL High 35.1-43.9 [facility] Estimated glomerular filtrat ion rate (GFR) AmericanOrdered By: Tony Kay on 08-20-2024 Estimated GFR (MDRD) Amer 77 mL/min >60 [facility] Comment on above: GFR Calc Ferritinon 08-20-2024 Ferritin [Mass/Vol] 164 ng/mL Normal 26-388 [facility] Comment on above: Order Comment: Order Date: 08/19/24 Order Info: 0786-1 - CMP Order Info: 56777-0 - MG Order Info: 2500-7 - TIBC Order Info: 2498-4 - FE Order Info: 2276-01 - LUKE Order Info: 2284-05 - FOLS N Performed By: #### L 500.4050, L501.5200, L503.0105, L503.6550, L509.1000, L503.6150, L506.0250, L100.0100, L503.6075, L506.1000 #### [facility] [address] [place], [address] Ferritin measurementOrdered By: Tony Kay on 08-20-2024 Ferritin [Mass/Vol] 164 ng/mL 26-388 [facility] Folates, (Folic Acid)on 08-08 FOLATES 5.80 ng/mL Normal 3.1-55.4 [facility] Comment on above: Order Comment: Order Date: 08/19/24 Order Info: 0786-1 - CMP Order Info: 54179-6 - MG Order Info: 2500-7 - TIBC Order Info: 2498-4 - FE Order Info: 2276-4 - LUKE Order Info: 228-8 - FOLS N Result Comment: Slig ht Hemolysis, Result may be falsely increased. Performed By: #### L 500.4050, L501.5200, L503.0105, L503.6550, L509.1000, L503.6150, L506.0250, L100.0100, L503.6075, L506.1000 #### [facility] [address] [place], [address] Folic acid measurementOrdere d By: Tony Kay on 08-20-2024 Folate 5.80 ng/mL 3.1-55.4 [facility] Comment on above: Slight Hemolysis, Re sult may be falsely increased. Glomerular filtration rate ( GFR) estimationOrdered By: Tony Kay on 08-20-2024 Estimated GFR (MDRD) Non-Af Amer 64 mL/min >60 [facility] Comment on above: Non- GFR Calc Glucose measurementOrdered B y: Tony Kay on 08-20-2024 Glucose [Mass/Vol] 108 mg/dL High 74-106 [facility] Comment on above: Fasting Glucose resu lt from 100 to 125 mg/dL suggests IMPAIRED HOMEOSTASIS per A.D.A. criteria. Hematocrit Auto (Bld) [Volum e fraction]Ordered By: Tony Kay on 08-20-2024 Hematocrit (Bld) [Volume fraction] 47.5 % 40-54 [facility] Hemoglobin measurementOrdere d By: Tony Kay on 08-20-2024 Hemoglobin (Bld) [Mass/Vol] 15.1 g/dL 13.0-16.5 [facility] Immature granulocytes/100 WB C Auto (Bld)Ordered By: Tony Kay on 08-20-2024 Immature granulocytes/100 WBC (Bld) 0.500 % 0.0-0.9 [facility] Comment on above: IG% - Immature Granu locytes (promyelocytes, myelocytes and metamyelocytes) > 1% indicates that a LEFT SHIFT is Present. Intact parathyroid hormone ( iPTH) measurementOrdered By: Tony Kay on 08-20-2024 Parathyroid Hormone (Intact) 58.7 pg/mL 18.4-80.1 [facility] Ironon 08-20-2024 Iron [Mass/Vol] 56 ug/dL Low 65-175 [facility] Comment on above: Order Comment: Order Date: 08/19/24 Order Info: 0786-1 - CMP Order Info: [id number] - MG Order Info: 2500-7 - TIBC Order Info: 24984 - FE Order Info: 2276-01 - LUKE Order Info: 2284-05 - FOLS N Performed By: #### L 500.4050, L501.5200, L503.0105, L503.6550, L509.1000, L503.6150, L506.0250, L100.0100, L503.6075, L506.1000 #### [facility] [address] [place], [place], [id number] Iron (Unsp spec) [Mass/Mass] Ordered By: Tony Kay on 08-20-2024 Iron [Mass/Vol] 56 ug/dL Low 65-175 [facility] Iron Binding Capacity,Totalo n 08-20-2024 TIBC 411 ug/dL Normal 250-450 [facility] Comment on above: Order Comment: Order Date: 08/19/24 Order Info: 0786-1 - CMP Order Info: 45902-1 - MG Order Info: 2500-7 - TIBC Order Info: 2494 - FE Order Info: 2276-01 - LUKE Order Info: 2284-05 - FOLS N Performed By: #### L 500.4050, L501.5200, L503.0105, L503.6550, L509.1000, L503.6150, L506.0250, L100.0100, L503.6075, L506.1000 #### [facility] [address] [place], [place], [id number] Laboratory - Chemistry and C hemistry - challengeOrdered By: Tony Kay on 08-20-2024 AST [Catalytic activity/Vol] 22 U/L 15-37 [facility] Lymphocytes Auto (Unsp spec) [#/Vol]Ordered By: Tony Kay on 08-20-2024 Lymphocytes (Bld) [#/Vol] 1.70 10*3/uL 0.83-4.51 [facility] Lymphocytes/100 WBC Auto (Un sp spec)Ordered By: Tony Kay on 08-20-2024 Lymphocytes/100 WBC (Bld) 27.8 % 19-41 [facility] MCV (mean corpuscular volume ) determinationOrdered By: Tony Kay on 08-20-2024 MCV (RBC) [Entitic vol] 85.6 fL 80-94 [facility] Magnesiumon 08-20-2024 Magnesium [Mass/Vol] 2.7 mg/dL High 1.6-2.6 [facility] Comment on above: Order Comment: Order Date: 08/19/24 Order Info: 0786-1 - CMP Order Info: 56416-5 - MG Order Info: 2500-7 - TIBC Order Info: 2498-4 - FE Order Info: 2276-4 - LUKE Order Info: 2284-8 - FOLS N Performed By: #### L 500.4050, L501.5200, L503.0105, L503.6550, L509.1000, L503.6150, L506.0250, L100.0100, L503.6075, L506.1000 #### [facility] [address] [place], [place], [address] Magnesium measurementOrdered By: Tony Kay on 08-20-2024 Magnesium [Mass/Vol] 2.7 mg/dL High 1.6-2.6 [facility] Mean corpuscular hemoglobin (MCH) determinationOrdered By: Tony Kay on 08-20-2024 MCH (RBC) [Entitic mass] 27.2 pg 27.0-32.0 [facility] Mean corpuscular hemoglobin concentration (MCHC) determinationOrdered By: Tony Kay on 08-20-2024 MCHC (RBC) [Mass/Vol] 31.8 g/dL Low 32-36 [facility] Mean platelet volume determi nationOrdered By: Tony Kay on 08-20-2024 Platelet mean volume (Bld) [Entitic vol] 10.3 fL 6.2-12.0 [facility] Monocyte percentageOrdered B y: Tony Kay on 08-20-2024 Monocytes/100 WBC (Bld) 10.0 % 0-10 [facility] Neutrophil percentageOrdered By: Tony Kay on 08-20-2024 Neutrophils/100 WBC (Bld) 58.8 % 47-70 [facility] Nucleated red blood cell per centageOrdered By: Tony Kay on 08-20-2024 Nucleated RBC/100 WBC (Bld) [Ratio] 0 % 0-5 [facility] PTHINon 08-20-2024 PTH 58.7 pg/mL Normal 18.4-80.1 [facility] Comment on above: Order Comment: Order Date: 08/19/24 Order Info: 0565-1 - PTHIN Performed By: #### L 500.4050, L501.5200, L503.0105, L503.6550, L509.1000, L503.6150, L506.0250, L100.0100, L503.6075, L506.1000 #### [facility] [address] [place] [address], [id number] Platelet countOrdered By: Diego Kay on 08-20-2024 Platelets (Bld) [#/Vol] 273 10*3/uL 150-450 [facility] Potassium measurementOrdered By: Tony Kay on 08-20-2024 Potassium [Moles/Vol] 3.8 mmol/L 3.5-5.1 [facility] RBC Auto (Bld) [#/Vol]Ordere d By: Tony Kay on 08-20-2024 RBC (Bld) [#/Vol] 5.55 10*6/uL 4.6-6.2 [facility] Serum anion gap measurementO rdered By: Tony Kay on 08-20-2024 Anion gap [Moles/Vol] 7 mmol/L 5-15 [facility] Serum globulin measurementOr dered By: Tony Kay on 08-20-2024 Globulin (S) [Mass/Vol] 4.9 g/dL High 2.2-4.2 [facility] Serum or plasma alanine sevilla otransferase (ALT) measurementOrdered By: Tony Kay on 08-20-2024 ALT [Catalytic activity/Vol] 38 U/L 16-61 [facility] Serum or plasma albumin tracy urement (mass/volume)Ordered By: Tony Kay on 08-20-2024 Albumin [Mass/Vol] 3.2 g/dL 3.2-5.0 [facility] Serum or plasma alkaline juan sphatase measurementOrdered By: Tony Kay on 08-20-2024 ALP [Catalytic activity/Vol] 75 U/L 45-117 [facility] Serum or plasma calcium tracy urement (mass/volume)Ordered By: Tony Kay on 08-20-2024 Calcium [Mass/Vol] 9.5 mg/dL 8.5-10.1 [facility] Serum or plasma creatinine m easurement (mass/volume)Ordered By: Tony Kay on 08-20-2024 Creatinine [Mass/Vol] 1.20 mg/dL 0.70-1.30 [facility] Comment on above: The validity of the calculated GFR & GFRAA in patients over 70 years has not been determined. Clinical correlation is essential. Serum or plasma urea nitroge n measurement (mass/volume)Ordered By: Tony Kay on 08-20-2024 Urea nitrogen [Mass/Vol] 24 mg/dL High 7-18 [facility] Sodium levelOrdered By: Tony Kay on 08-20-2024 Sodium [Moles/Vol] 137 mmol/L 136-145 [facility] TIBCOrdered By: Tony calvillo n 08-20-2024 Total Iron Binding Capacity 411 ug/dL 250-450 [facility] Total proteinOrdered By: Charlette Kay on 08-20-2024 Protein [Mass/Vol] 8.1 g/dL 6.4-8.2 [facility] Vitamin B12on 08-20-2024 Cobalamin (Vitamin B12) [Mass/Vol] 625 pg/mL Normal [facility] Comment on above: Order Comment: Order Date: 08/19/24 Order Info: 2132-06 - B12 Order Info: 32095-3 - VITD25 Performed By: #### L 500.4050, L501.5200, L503.0105, L503.6550, L509.1000, L503.6150, L506.0250, L100.0100, L503.6075, L506.1000 #### [facility] [address] [place], [address] Vitamin B12 measurementOrder ed By: Tony Kay on 08-20-2024 Cobalamin (Vitamin B12) [Mass/Vol] 625 pg/mL [facility] Vitamin D,25 Hydroxyon 08-20 Vitamin D 25-OH 46.6 ng/mL Normal [facility] Comment on above: Order Comment: Order Date: 08/19/24 Order Info: 2132-06 - B12 Order Info: 84464-2 - VITD25 Result Comment: Mercedez min D 25(OH) Status Range Deficiency <20 ng/mL (50nmol/L) Insufficiency 20 - 30 ng/mL (50 - 75 nmol/L) Sufficiency 30 - 100 ng/mL (75 - 250 nmol/L) Toxicity >100 ng/mL (>250 nmol/L) Performed By: #### L 500.4050, L501.5200, L503.0105, L503.6550, L509.1000, L503.6150, L506.0250, L100.0100, L503.6075, L506.1000 #### [facility] [address] [place], [address] White blood cell (WBC) count Ordered By: Tony Kay on 08-20-2024 WBC (Bld) [#/Vol] 6.1 10*3/uL 4.4-11.0 [facility] Basic Metabolic Profile (BMP )on 08-07-2024 BUN/CRE 20.3 RATIO High 10-20 [facility] Comment on above: Order Comment: Order Date: 08/19/24 Order Info: 785-1 - CMP Order Info: 02232-6 - MG Order Info: 2500-04 - TIBC Order Info: 2494 - FE Order Info: 2276-01 - LUKE Order Info: 2284-05 - FOLS N Performed By: #### L 500.4050, L501.5200, L503.0105, L503.6550, L509.1000, L503.6150, L506.0250, L100.0100, L503.6075, L506.1000 #### [facility] [address] [place], [place], [address] (150) CA,Total 9.5 mg/dL Normal 8.5-10.1 [facility] Comment on above: Order Comment: Order Date: 08/19/24 Order Info: 785-10 - CMP Order Info: 47940-1 - MG Order Info: 2500-04 - TIBC Order Info: 2498-01 - FE Order Info: 2276-01 - LUKE Order Info: 2284-05 - FOLS N Performed By: #### L 500.4050, L501.5200, L503.0105, L503.6550, L509.1000, L503.6150, L506.0250, L100.0100, L503.6075, L506.1000 #### [facility] [address] [place], [place], [address] (423) Chloride [Moles/Vol] 104 mmol/L Normal 98-107 [facility] Comment on above: Order Comment: Order Date: 08/19/24 Order Info: 785-1 - CMP Order Info: 88827-3 - MG Order Info: 2500-04 - TIBC Order Info: 2494 - FE Order Info: 2276-01 - LUKE Order Info: 8 - FOLS N Performed By: #### L 500.4050, L501.5200, L503.0105, L503.6550, L509.1000, L503.6150, L506.0250, L100.0100, L503.6075, L506.1000 #### [facility] [address] [place], [place], [id number] (793) CO2 [Moles/Vol] 27.0 mmol/L Normal 21.0-32.0 [facility] Comment on above: Order Comment: Order Date: 08/19/24 Order Info: 0786- - CMP Order Info: 09951-2 - MG Order Info: 2500-04 - TIBC Order Info: 4 - FE Order Info: 4 - LUKE Order Info: 8 - FOLS N Performed By: #### L 500.4050, L501.5200, L503.0105, L503.6550, L509.1000, L503.6150, L506.0250, L100.0100, L503.6075, L506.1000 #### [facility] [address] [place], [place], [id number] (548) Creatinine [Mass/Vol] 1.38 mg/dL High 0.70-1.30 [facility] Comment on above: Order Comment: Order Date: 08/19/24 Order Info: 0786- - CMP Order Info: 94377-7 - MG Order Info: 2500-04 - TIBC Order Info: 2498-01 - FE Order Info: 2276-01 - LUKE Order Info: 2284-05 - FOLS N Result Comment: The validity of the calculated GFR GFRAA in patients over 70 years has not been determined. Clinical correlation is essential. Performed By: #### L 500.4050, L501.5200, L503.0105, L503.6550, L509.1000, L503.6150, L506.0250, L100.0100, L503.6075, L506.1000 #### [facility] [address] [place], [address] EST GFR - AA 66 mL/min Normal >60 [facility] Comment on above: Order Comment: Order Date: 08/19/24 Order Info: 785-10 - CMP Order Info: 44013-8 - MG Order Info: 2500-04 - TIBC Order Info: 2498-01 - FE Order Info: 2276-01 - LUKE Order Info: 2284-05 FOLS N Result Comment: Afri can Albanian GFR Calc Performed By: #### L 500.4050, L501.5200, L503.0105, L503.6550, L509.1000, L503.6150, L506.0250, L100.0100, L503.6075, L506.1000 #### [facility] [address] [place], [place], [id number] GAP 8 Normal 5-15 [facility] Comment on above: Order Comment: Order Date: 08/19/24 Order Info: 785-10 - CMP Order Info: 30967-7 - MG Order Info: 2500-04 TIBC Order Info: 2498-01 FE Order Info: 2276-01 LUKE Order Info: 2284-05 FOLS N Performed By: #### L 500.4050, L501.5200, L503.0105, L503.6550, L509.1000, L503.6150, L506.0250, L100.0100, L503.6075, L506.1000 #### [facility] [address] [place], [place], [id number] GFR/1.73 sq M.predicted among non-blacks MDRD (S/P/Bld) [Vol rate/Area] 54 mL/min/{1.73_m2} Low >60 [facility] Comment on above: Order Comment: Order Date: 08/19/24 Order Info: 785-10 - CMP Order Info: 98493-0 - MG Order Info: 2500-04 - TIBC Order Info: 2498-01 - FE Order Info: 2276-01 - LUKE Order Info: 2284-05 FOLS N Result Comment: Non- GFR Calc Performed By: #### L 500.4050, L501.5200, L503.0105, L503.6550, L509.1000, L503.6150, L506.0250, L100.0100, L503.6075, L506.1000 #### [facility] [address] [place], [address] Glucose [Mass/Vol] 117 mg/dL High 74-106 [facility] Comment on above: Order Comment: Order Date: 08/19/24 Order Info: 07- - CMP Order Info: [id number] - MG Order Info: 2500-04 - TIBC Order Info: 2498-01 - Order Info: 2276-01 - LUKE Order Info: 2284-05 - FOLS N Result Comment: Fast ing Glucose result from 100 to 125 mg/dL suggests IMPAIRED HOMEOSTASIS per A.D.A. criteria. Performed By: #### L 500.4050, L501.5200, L503.0105, L503.6550, L509.1000, L503.6150, L506.0250, L100.0100, L503.6075, L506.1000 #### [facility] [address] [place], [address] Potassium [Moles/Vol] 4.0 mmol/L Normal 3.5-5.1 [facility] Comment on above: Order Comment: Order Date: 08/19/24 Order Info: 0786- - CMP Order Info: 03575-1 - MG Order Info: 2500-04 - TIBC Order Info: 2498-01 - FE Order Info: 2276-01 - LUKE Order Info: 2284-05 - FOLS N Performed By: #### L 500.4050, L501.5200, L503.0105, L503.6550, L509.1000, L503.6150, L506.0250, L100.0100, L503.6075, L506.1000 #### [facility] [address] [place], [address] Sodium [Moles/Vol] 139 mmol/L Normal 136-145 [facility] Comment on above: Order Comment: Order Date: 08/19/24 Order Info: 785- - CMP Order Info: 39924-0 - MG Order Info: 2500-04 - TIBC Order Info: 2498-01 - FE Order Info: 2276-01 - LUKE Order Info: 2284-05 - FOLS N Performed By: #### L 500.4050, L501.5200, L503.0105, L503.6550, L509.1000, L503.6150, L506.0250, L100.0100, L503.6075, L506.1000 #### [facility] [address] [place], [address] Urea nitrogen [Mass/Vol] 28 mg/dL High 7-18 [facility] Comment on above: Order Comment: Order Date: 08/19/24 Order Info: 785-10 - CMP Order Info: 32721-4 - MG Order Info: 2500-04 TIBC Order Info: 2498-01 - FE Order Info: 2276-01 LUKE Order Info: 2284-05 - FOLS N Performed By: #### L 500.4050, L501.5200, L503.0105, L503.6550, L509.1000, L503.6150, L506.0250, L100.0100, L503.6075, L506.1000 #### [facility] [address] [place], [place], [id number] CBC W/Diff, Automatedon 10-3 0-2024 Absolute Lymph 1.93 X10 3/uL Normal 0.83-4.51 [facility] Comment on above: Order Comment: Order Date: 08/19/24 Order Info: 785-10 - CMP Order Info: 69359-1 - MG Order Info: 2500-04 - TIBC Order Info: 2498-01 - FE Order Info: 2276-01 LUKE Order Info: 2284-05 - FOLS N Performed By: #### L 500.4050, L501.5200, L503.0105, L503.6550, L509.1000, L503.6150, L506.0250, L100.0100, L503.6075, L506.1000 #### [facility] [address] [place], [address] Absolute Neut 4.5 X10 3/uL Normal 2.0-7.7 [facility] Comment on above: Order Comment: Order Date: 08/19/24 Order Info: 0786-1 - CMP Order Info: 52463-4 - MG Order Info: 2500-7 - TIBC Order Info: 2498-01 - FE Order Info: 2276-01 - LUKE Order Info: 8 - FOLS N Performed By: #### L 500.4050, L501.5200, L503.0105, L503.6550, L509.1000, L503.6150, L506.0250, L100.0100, L503.6075, L506.1000 #### [facility] [address] [place], [address] Basophils/100 WBC (Bld) 0.4 % Normal 0-1 [facility] Comment on above: Order Comment: Order Date: 08/19/24 Order Info: 1 - CMP Order Info: [id number] - MG Order Info: 2500-04 - TIBC Order Info: 2498-01 - FE Order Info: 2276-01 - LUKE Order Info: 8 - FOLS N Performed By: #### L 500.4050, L501.5200, L503.0105, L503.6550, L509.1000, L503.6150, L506.0250, L100.0100, L503.6075, L506.1000 #### [facility] [address] [place], [address] Eosinophils/100 WBC (Bld) 1.8 % Normal 0-5 [facility] Comment on above: Order Comment: Order Date: 08/19/24 Order Info: 0786-1 - CMP Order Info: 62069-5 - MG Order Info: 25007 - TIBC Order Info: 2498-01 - FE Order Info: 2276-01 - LUKE Order Info: 8 - FOLS N Performed By: #### L 500.4050, L501.5200, L503.0105, L503.6550, L509.1000, L503.6150, L506.0250, L100.0100, L503.6075, L506.1000 #### [facility] [address] [place], [address] Erythrocyte distribution width (RBC) [Ratio] 16.7 % High 11.6-14.6 [facility] Comment on above: Order Comment: Order Date: 08/19/24 Order Info: 07-1 - CMP Order Info: 60721-6 - MG Order Info: 2500-04 - TIBC Order Info: 2498-01 - FE Order Info: 2276-01 - LUKE Order Info: 2284-05 - FOLS N Performed By: #### L 500.4050, L501.5200, L503.0105, L503.6550, L509.1000, L503.6150, L506.0250, L100.0100, L503.6075, L506.1000 #### [facility] [address] [place], [address] Hematocrit (Bld) [Volume fraction] 48.1 % Normal 40-54 [facility] Comment on above: Order Comment: Order Date: 08/19/24 Order Info: 07- - CMP Order Info: 09696-6 - MG Order Info: 2500-04 - TIBC Order Info: 2498-01 - FE Order Info: 2276-01 - LUKE Order Info: 2284-05 - FOLS N Performed By: #### L 500.4050, L501.5200, L503.0105, L503.6550, L509.1000, L503.6150, L506.0250, L100.0100, L503.6075, L506.1000 #### [facility] [address] [place], [address] Hemoglobin (Bld) [Mass/Vol] 15.6 g/dL Normal 13.0-16.5 [facility] Comment on above: Order Comment: Order Date: 08/19/24 Order Info: 785-10 - CMP Order Info: 04264-9 - MG Order Info: 2500-04 - TIBC Order Info: 2498-01 - FE Order Info: 2276-01 - LUKE Order Info: 2284-05 FOLS N Performed By: #### L 500.4050, L501.5200, L503.0105, L503.6550, L509.1000, L503.6150, L506.0250, L100.0100, L503.6075, L506.1000 #### [facility] [address] [place], [place], [id number] (772) IG% 0.300 Normal 0.0-0.9 [facility] Comment on above: Order Comment: Order Date: 08/19/24 Order Info: 785-10 - CMP Order Info: 23051-9 - MG Order Info: 2500-04 TIBC Order Info: 2498-01 - FE Order Info: 2276-01 - LUKE Order Info: 2284-05 - FOLS N Result Comment: IG% - Immature Granulocytes (promyelocytes, myelocytes and metamyelocytes) > 1% indicates that a LEFT SHIFT is Present. Performed By: #### L 500.4050, L501.5200, L503.0105, L503.6550, L509.1000, L503.6150, L506.0250, L100.0100, L503.6075, L506.1000 #### [facility] [address] [place], [place], [id number] (992) Lymphocytes/100 WBC (Bld) 26.3 % Normal 19-41 [facility] Comment on above: Order Comment: Order Date: 08/19/24 Order Info: 785-10 - CMP Order Info: 80009-7 - MG Order Info: 2500-04 - TIBC Order Info: 2498-01 - FE Order Info: 2276-01 - LUKE Order Info: 2284-05 FOLS N Performed By: #### L 500.4050, L501.5200, L503.0105, L503.6550, L509.1000, L503.6150, L506.0250, L100.0100, L503.6075, L506.1000 #### [facility] [address] [place], [address] MCH (RBC) [Entitic mass] 26.9 pg Low 27.0-32.0 [facility] Comment on above: Order Comment: Order Date: 08/19/24 Order Info: 07-1 - CMP Order Info: [id number] - MG Order Info: 2500-7 - TIBC Order Info: 2494 - FE Order Info: 2276-01 - LUKE Order Info: 2284-05 - FOLS N Performed By: #### L 500.4050, L501.5200, L503.0105, L503.6550, L509.1000, L503.6150, L506.0250, L100.0100, L503.6075, L506.1000 #### [facility] [address] [facility] [place], [address] MCHC (RBC) [Mass/Vol] 32.4 g/dL Normal 32-36 [facility] Comment on above: Order Comment: Order Date: 08/19/24 Order Info: 07-1 - CMP Order Info: 60367-2 - MG Order Info: 7 - TIBC Order Info: 4 - FE Order Info: 2276-01 - LUKE Order Info: 2284-05 - FOLS N Performed By: #### L 500.4050, L501.5200, L503.0105, L503.6550, L509.1000, L503.6150, L506.0250, L100.0100, L503.6075, L506.1000 #### [facility] [address] [place], [address] MCV (RBC) [Entitic vol] 82.8 fL Normal 80-94 [facility] Comment on above: Order Comment: Order Date: 08/19/24 Order Info: 0786-1 - CMP Order Info: 25006-9 - MG Order Info: 2500-7 - TIBC Order Info: 84 - FE Order Info: 2276-01 - LUKE Order Info: 8 - FOLS N Performed By: #### L 500.4050, L501.5200, L503.0105, L503.6550, L509.1000, L503.6150, L506.0250, L100.0100, L503.6075, L506.1000 #### [facility] [address] [place], [address] Monocytes/100 WBC (Bld) 9.7 % Normal 0-10 [facility] Comment on above: Order Comment: Order Date: 08/19/24 Order Info: 0786- - CMP Order Info: 76335-3 - MG Order Info: 2500-04 - TIBC Order Info: 2498-01 - FE Order Info: 2276-01 - LUKE Order Info: 2284-05 - FOLS N Performed By: #### L 500.4050, L501.5200, L503.0105, L503.6550, L509.1000, L503.6150, L506.0250, L100.0100, L503.6075, L506.1000 #### [facility] [address] [place], [address] Neutrophils/100 WBC (Bld) 61.5 % Normal 47-70 [facility] Comment on above: Order Comment: Order Date: 08/19/24 Order Info: 0786-1 - CMP Order Info: 21595-5 - MG Order Info: 2500-04 - TIBC Order Info: 4 - FE Order Info: 2276-01 - LUKE Order Info: 2284-05 - FOLS N Performed By: #### L 500.4050, L501.5200, L503.0105, L503.6550, L509.1000, L503.6150, L506.0250, L100.0100, L503.6075, L506.1000 #### [facility] [address] [place], [address] Nucleated RBC (Bld) [#/Vol] 0 10*3/uL Normal 0-5 [facility] Comment on above: Order Comment: Order Date: 08/19/24 Order Info: 785-1 - CMP Order Info: 41359-9 - MG Order Info: 2500-7 - TIBC Order Info: 4 - FE Order Info: 2276-01 - LUKE Order Info: 2284-05 - FOLS N Performed By: #### L 500.4050, L501.5200, L503.0105, L503.6550, L509.1000, L503.6150, L506.0250, L100.0100, L503.6075, L506.1000 #### [facility] [address] [place], [place], [phone] (409) Platelet mean volume (Bld) [Entitic vol] 10.0 fL Normal 6.2-12.0 [facility] Comment on above: Order Comment: Order Date: 08/19/24 Order Info: 785-10 - CMP Order Info: 73969-1 - MG Order Info: 2500-04 - TIBC Order Info: 2498-01 - FE Order Info: 2276-01 - LUKE Order Info: 2284-05 - FOLS N Performed By: #### L 500.4050, L501.5200, L503.0105, L503.6550, L509.1000, L503.6150, L506.0250, L100.0100, L503.6075, L506.1000 #### [facility] [address] [place], [place], [id number] (905) Platelets (Bld) [#/Vol] 283 10*3/uL Normal 150-450 [facility] Comment on above: Order Comment: Order Date: 08/19/24 Order Info: 785-1 - CMP Order Info: 64866-8 - MG Order Info: 2500-7 - TIBC Order Info: 4 - FE Order Info: 2276-01 - LUKE Order Info: 2284-05 - FOLS N Performed By: #### L 500.4050, L501.5200, L503.0105, L503.6550, L509.1000, L503.6150, L506.0250, L100.0100, L503.6075, L506.1000 #### [facility] [address] [place], [place], [id number] (096) RBC (Bld) [#/Vol] 5.81 10*6/uL Normal 4.6-6.2 [facility] Comment on above: Order Comment: Order Date: 08/19/24 Order Info: 0786-1 - CMP Order Info: 16726-3 - MG Order Info: 2500-04 - TIBC Order Info: 2498-01 - FE Order Info: 2276-01 - LUKE Order Info: 2284-05 - FOLS N Performed By: #### L 500.4050, L501.5200, L503.0105, L503.6550, L509.1000, L503.6150, L506.0250, L100.0100, L503.6075, L506.1000 #### [facility] [address] [place], [address] RDW SD 49.6 fl High 35.1-43.9 [facility] Comment on above: Order Comment: Order Date: 08/19/24 Order Info: 0786-1 - CMP Order Info: 18368-1 - MG Order Info: 2500-04 - TIBC Order Info: 2498-01 - FE Order Info: 2276-01 - LUKE Order Info: 2284-05 - FOLS N Performed By: #### L 500.4050, L501.5200, L503.0105, L503.6550, L509.1000, L503.6150, L506.0250, L100.0100, L503.6075, L506.1000 #### [facility] [address] [place], [address] WBC (Bld) [#/Vol] 7.3 10*3/uL Normal 4.4-11.0 [facility] Comment on above: Order Comment: Order Date: 08/19/24 Order Info: 785- - CMP Order Info: 54252-4 - MG Order Info: 2500-04 - TIBC Order Info: 4 - FE Order Info: 2276-01 - LUKE Order Info: 2284-05 - FOLS N Performed By: #### L 500.4050, L501.5200, L503.0105, L503.6550, L509.1000, L503.6150, L506.0250, L100.0100, L503.6075, L506.1000 #### [facility] [address] [place], [place], [id number] Ferritinon 08-06-2024 Ferritin [Mass/Vol] 173 ng/mL Normal 26-388 [facility] Comment on above: Order Comment: Order Date: 08/19/24 Order Info: 785-10 - CMP Order Info: 66636-4 - MG Order Info: 2500-04 - TIBC Order Info: 2498-01 - FE Order Info: 2276-01 - LUKE Order Info: 2284-05 - FOLS N Performed By: #### L 500.4050, L501.5200, L503.0105, L503.6550, L509.1000, L503.6150, L506.0250, L100.0100, L503.6075, L506.1000 #### [facility] [address] [place], [place], [phone] Ironon 08-06-2024 Iron [Mass/Vol] 51 ug/dL Low 65-175 [facility] Comment on above: Order Comment: Order Date: 08/19/24 Order Info: 1 - CMP Order Info: 36034-1 - MG Order Info: 2500-04 - TIBC Order Info: 4 - FE Order Info: 2276-01 - LUKE Order Info: 2284-05 - FOLS N Performed By: #### L 500.4050, L501.5200, L503.0105, L503.6550, L509.1000, L503.6150, L506.0250, L100.0100, L503.6075, L506.1000 #### [facility] [address] [place], [address] Gastroenterology Visit Repor ton 07-02-2024 Gastroenterology Visit Report [facility] Gastroenterology [address] [place] [address] OFFICE VISIT Date of Service: 07/02/24 MR#: [id number] Acct: [id number] Name: BALTAZAR BAY Rep #: [id number] : 1955 Provider: Ben Emmanuel DO Age/Sex: 68/M Location: [facility] Status: Signed Intake Vital Signs 06/16/24 07:28 [...] Contact 9.7. (more content not included)... Normal [facility] Colonoscopy Reporton 024 Colonoscopy Report [facility] Medical Records Department [address] [place] [address] Colonoscopy Report MR#: [id number] Acct: [id number] Name: BALTAZAR BAY Rep #: [id number] : 1955 68 From: Ben Emmanuel DO PCP: Dr. Tony Kay MD Status:[facility] Patient Name: Baltazar Bay Procedure Date: 06/16/2024 [...] for surveillance. Procedure Code(s): --- Professional --- 25907, Colonoscopy, flexible; with biopsy, single or multiple CPT copyright 2021 [employer]. All rights reserved. The codes documented in this report are preliminary and upon computer language coder review may be revised to meet current compliance requirements. Ben Emmanuel DO 06/16/2024 8:50:44 AM This report has been sig (more content not included)... [facility] MR/POSTOP.ANE 06-16-2024 MR/POSTOP.[facility] Medical Records Department [address] [place] [address] Anesthesia Postop Eval I 06/16/24 0847 MR#: [id number] Acct: [id number] Name: BALTAZAR BAY Rep #: [id number] : 1955 68 From: Shay Moses PCP: Dr. Tony Kay MD Status:REG SDC Y Race: C Location: [place] [address] Anesthesia: Postop Eval I Current Vital Signs [...] Date Shay Crook Signature: Date CC: Signed [facility] MR/[id number] 06-16-2024 MR/POSTOPAN2 [facility] Medical Records Department [address] [place] [address] Anesthesia Postop Eval II 06/16/24904 MR#: [id number] Acct: [id number] Name: BALTAZAR BAY Rep #: [id number] : 1955 68 From: Herminio Calvert MD PCP: Dr. Tony Kay MD Status:REG SDC Y Race: C Location: [place] [address]- Anesthesia Postop Eval I Sum Postop Eval [...] MD Cosigner Signature: Date CC: Signed Normal [facility] Surgery Specimen Level Jocelin 06-16-2024 Surgery Specimen Level IV Patient Age/Sex Location Account Attending Physician BALTAZAR BAY 68/M EN [id number] Ben Emmanuel DO Specimen: [id number] Received: 06/16/24 Status: DISHA Rolondenton Num: [id number] Spec Type: COLON BX Subm Dr: Ben Emmanuel DO HEADER OPERATION: Colonoscopy, biopsy PRE-OP DIAGNOSIS: [...] totally submitted in one cassette. 06/16/2024 TC:5 CPT:95667q0 Patient Age/Sex Location Account Attending Physician BALTAZAR BAY/Corbin QUEEN [id number] Ben Emmanuel DO Signed (signature on file) Dr. Ras Armas, 06/17/24 1202 Normal [facility] Comment on above: Performed By: #### L 500.4050, L501.5200, L503.0105, L503.6550, L509.1000, L503.6150, L506.0250, L100.0100, L503.6075, L506.1000 #### [facility] [address] [place], [address] Wound Cultureon 06-15-2024 WC #2 [...] S Vancomycin Islt RICKI <=0.5 S Normal [facility] Comment on above: Performed By: #### L 500.4050, L501.5200, L503.0105, L503.6550, L509.1000, L503.6150, L506.0250, L100.0100, L503.6075, L506.1000 #### [facility] [address] [facility] [place], [address] Gram Stainon 06-13-2024 GS Gram Stain Rare Epithelial cells No organisms seen No White Blood Cells Normal [facility] Comment on above: Performed By: #### L 500.4050, L501.5200, L503.0105, L503.6550, L509.1000, L503.6150, L506.0250, L100.0100, L503.6075, L506.1000 #### [facility] [address] [place], [place], [address] Gastroenterology Visit Repor ton 05-30-2024 Gastroenterology Visit Report [facility] Gastroenterology [address] [place] [address] OFFICE VISIT Date of Service: 05/30/24 MR#: [id number] Acct: [id number] Name: BALTAZAR BAY Rep #: [id number] : 1955 Provider: Ben Emmanuel DO Age/Sex: 68/M Location: [facility] Status: Signed Intake Vital Signs 08/28/23 14:14 [...] Did h (more content not included)... Normal [facility] Basophil percentageOrdered B y: Pepito Corona on 01-22-2024 Basophil percentage 5.71 ng/mL 0.0-4.0 [facility] Comment on above: This test was perfor med using the TPSA assay method for the[employer] Consult chemistry system. Values obtained with differentassay methods cannot be used interchangably.When changing PSA assays in the course of monitoring apatient, additional sequential testing should be carriedout to confirm baseline values. Chloride [Moles/Vol] 102 mmol/L 98-107 [facility] Glucose [Mass/Vol] 127 mg/dL 74-106 [facility] Comment on above: Fasting Glucose resu lt greater than or equal to 126 mg/dL suggests DIABETES MELLITUS per A.D.A. criteria. Potassium [Moles/Vol] 3.6 mmol/L 3.5-5.1 [facility] Sodium [Moles/Vol] 138 mmol/L 136-145 [facility] - Chemistry and C hemistry - challengeOrdered By: Pepito Corona on 01-22-2024 CO2 [Moles/Vol] 30.0 mmol/L 21.0-32.0 [facility] Urea nitrogen/Creatinine [Mass ratio] 22.1 mg/mg 10-20 [facility] No Panel InformationOrdered By: Pepito Corona on 01-22-2024 Estimated GFR (MDRD) Amer 58 mL/min >60 [facility] Comment on above: GFR Calc Estimated GFR (MDRD) Non-Af Amer 48 mL/min >60 [facility] Comment on above: Non- GFR Calc SS-A/Ro IgG Antibody < 0.2 AI 0.0-0.9 [facility] SS-B/La IgG Antibody < 0.2 AI 0.0-0.9 [facility] Comment on above: Performed at: [employer] [facility] [employer] [place] [id number] Director: Hesham Christopher PhD, Phone: [phone] Serum or plasma calcium tracy urement (mass/volume)Ordered By: Pepito Corona on 01-22-2024 Calcium [Mass/Vol] 9.5 mg/dL 8.5-10.1 [facility] Serum or plasma creatinine m easurement (mass/volume)Ordered By: Pepito Corona on 01-22-2024 Creatinine [Mass/Vol] 1.54 mg/dL 0.70-1.30 [facility] Comment on above: The validity of the calculated GFR & GFRAA in patients over 70 years has not been determined. Clinical correlation is essential. Serum or plasma urea nitroge n measurement (mass/volume)Ordered By: Pepito Corona on 01-22-2024 Urea nitrogen [Mass/Vol] 34 mg/dL 7-18 [facility] Thin prep Papanicolaou smear with manual screeningOrdered By: Pepito Corona on 01-22-2024 Thin prep Papanicolaou smear with manual screening 6 5-15 [facility] Basophil percentageOrdered B y: Tony Kay on 12-28-2023 Bilirubin [Mass/Vol] 0.40 mg/dL 0.20-1.00 [facility] Comment on above: For patients on eltr ombopag therapy, use of Dimension [place] TBIL is not recommended. Chloride [Moles/Vol] 100 mmol/L 98-107 [facility] Glucose [Mass/Vol] 117 mg/dL 74-106 [facility] Comment on above: Fasting Glucose resu lt from 100 to 125 mg/dL suggests IMPAIRED HOMEOSTASIS per A.D.A. criteria. Potassium [Moles/Vol] 3.7 mmol/L 3.5-5.1 [facility] Protein [Mass/Vol] 8.1 g/dL 6.4-8.2 [facility] Sodium [Moles/Vol] 137 mmol/L 136-145 [facility] - Chemistry and C hemistry - challengeOrdered By: Tony Kay on 12-28-2023 Albumin/Globulin [Mass ratio] 0.7 {ratio} 0.9-2.4 [facility] ALP [Catalytic activity/Vol] 74 U/L 45-117 [facility] ALT [Catalytic activity/Vol] 34 U/L 16-61 [facility] CO2 [Moles/Vol] 31.0 mmol/L 21.0-32.0 [facility] Globulin (S) [Mass/Vol] 4.7 g/dL 2.2-4.2 [facility] Urea nitrogen/Creatinine [Mass ratio] 21.7 mg/mg 10-20 [facility] No Panel InformationOrdered By: Tony Kay on 12-28-2023 C-Reactive Protein Extended Range 12.20 mg/L 0.0-3.0 [facility] Comment on above: C-Reactive Protein ( CRP) provides useful information for thediagnosis, therapy and monitoring of inflammatory processesand associated diseases. For the evaluation of Relative Riskfor Cardiovascular Disease, a High Sensitivity CRP (HSCRP)should be ordered. Estimated GFR (MDRD) Amer 71 mL/min >60 [facility] Comment on above: GFR Calc Estimated GFR (MDRD) Non-Af Amer 59 mL/min >60 [facility] Comment on above: Non- GFR Calc Serum or plasma calcium tracy urement (mass/volume)Ordered By: Tony Kay on 03-22-2024 Calcium [Mass/Vol] 9.5 mg/dL 8.5-10.1 [facility] Serum or plasma creatinine m easurement (mass/volume)Ordered By: Tony Kay on 12-28-2023 Creatinine [Mass/Vol] 1.29 mg/dL 0.70-1.30 [facility] Comment on above: The validity of the calculated GFR & GFRAA in patients over 70 years has not been determined. Clinical correlation is essential. Serum or plasma urea nitroge n measurement (mass/volume)Ordered By: Tony Kay on 12-28-2023 Urea nitrogen [Mass/Vol] 28 mg/dL 7-18 [facility] Thin prep Papanicolaou smear with manual screeningOrdered By: Tony Kay on 12-28-2023 Thin prep Papanicolaou smear with manual screening 3.4 g/dL 3.2-5.0 [facility] Thin prep Papanicolaou smear with manual screening 22 U/L 15-37 [facility] Thin prep Papanicolaou smear with manual screening 6 5-15 [facility] Basophil percentageOrdered B y: Tony Kay on 12-14-2023 Chloride [Moles/Vol] 102 mmol/L 98-107 [facility] Glucose [Mass/Vol] 113 mg/dL 74-106 [facility] Comment on above: Fasting Glucose resu lt from 100 to 125 mg/dL suggests IMPAIRED HOMEOSTASIS per A.D.A. criteria. Potassium [Moles/Vol] 4.0 mmol/L 3.5-5.1 [facility] Sodium [Moles/Vol] 138 mmol/L 136-145 [facility] - Chemistry and C hemistry - challengeOrdered By: Tony Kay on 12-14-2023 CO2 [Moles/Vol] 29.0 mmol/L 21.0-32.0 [facility] Magnesium [Mass/Vol] 2.5 mg/dL 1.6-2.6 [facility] Urea nitrogen/Creatinine [Mass ratio] 23.9 mg/mg 10-20 [facility] No Panel InformationOrdered By: Tony Kay on 12-14-2023 C-Reactive Protein Extended Range 9.94 mg/L 0.0-3.0 [facility] Comment on above: C-Reactive Protein ( CRP) provides useful information for thediagnosis, therapy and monitoring of inflammatory processesand associated diseases. For the evaluation of Relative Riskfor Cardiovascular Disease, a High Sensitivity CRP (HSCRP)should be ordered. Estimated GFR (MDRD) Amer 68 mL/min >60 [facility] Comment on above: GFR Calc Estimated GFR (MDRD) Non-Af Amer 56 mL/min >60 [facility] Comment on above: Non- GFR Calc Serum or plasma calcium tracy urement (mass/volume)Ordered By: Tony Kay on 12-14-2023 Calcium [Mass/Vol] 9.6 mg/dL 8.5-10.1 [facility] Serum or plasma creatinine m easurement (mass/volume)Ordered By: Tony Kay on 12-14-2023 Creatinine [Mass/Vol] 1.34 mg/dL 0.70-1.30 [facility] Comment on above: The validity of the calculated GFR & GFRAA in patients over 70 years has not been determined. Clinical correlation is essential. Serum or plasma urea nitroge n measurement (mass/volume)Ordered By: Tony Kay on 12-14-2023 Urea nitrogen [Mass/Vol] 32 mg/dL 7-18 [facility] Thin prep Papanicolaou smear with manual screeningOrdered By: Tony Kay on 12-14-2023 Thin prep Papanicolaou smear with manual screening 7 5-15 [facility] No Panel InformationOrdered By: Ben Emmanuel on 11-27-2023 C-Reactive Protein Extended Range 14.10 mg/L 0.0-3.0 [facility] Comment on above: C-Reactive Protein ( CRP) provides useful information for thediagnosis, therapy and monitoring of inflammatory processesand associated diseases. For the evaluation of Relative Riskfor Cardiovascular Disease, a High Sensitivity CRP (HSCRP)should be ordered. Basophil percentageOrdered B y: Tony Kay on 11-07-2023 Chloride [Moles/Vol] 105 mmol/L 98-107 [facility] Glucose [Mass/Vol] 121 mg/dL 74-106 [facility] Comment on above: Fasting Glucose resu lt from 100 to 125 mg/dL suggests IMPAIRED HOMEOSTASIS per A.D.A. criteria. Potassium [Moles/Vol] 4.6 mmol/L 3.5-5.1 [facility] Sodium [Moles/Vol] 135 mmol/L 136-145 [facility] - Chemistry and C hemistry - challengeOrdered By: Tony Kay on 11-07-2023 CO2 [Moles/Vol] 27.0 mmol/L 21.0-32.0 [facility] Magnesium [Mass/Vol] 2.9 mg/dL 1.6-2.6 [facility] Urea nitrogen/Creatinine [Mass ratio] 25.4 mg/mg 10-20 [facility] No Panel InformationOrdered By: Tony Kay on 11-07-2023 Estimated GFR (MDRD) Amer 71 mL/min >60 [facility] Comment on above: GFR Calc Estimated GFR (MDRD) Non-Af Amer 58 mL/min >60 [facility] Comment on above: Non- GFR Calc Serum or plasma calcium tracy urement (mass/volume)Ordered By: Tony Kay on 11-07-2023 Calcium [Mass/Vol] 9.7 mg/dL 8.5-10.1 [facility] Serum or plasma creatinine m easurement (mass/volume)Ordered By: Tony Kay on 11-07-2023 Creatinine [Mass/Vol] 1.30 mg/dL 0.70-1.30 [facility] Comment on above: The validity of the calculated GFR & GFRAA in patients over 70 years has not been determined. Clinical correlation is essential. Serum or plasma urea nitroge n measurement (mass/volume)Ordered By: Tony Kay on 11-07-2023 Urea nitrogen [Mass/Vol] 33 mg/dL -18 [facility] Thin prep Papanicolaou smear with manual screeningOrdered By: Tony Kay on 11-07-2023 Thin prep Papanicolaou smear with manual screening 3 5-15 [facility] Basophil percentageOrdered B y: Tony Kay on 09-24-2023 Chloride [Moles/Vol] 104 mmol/L 98-107 [facility] Glucose [Mass/Vol] 123 mg/dL 74-106 [facility] Comment on above: Fasting Glucose resu lt from 100 to 125 mg/dL suggests IMPAIRED HOMEOSTASIS per A.D.A. criteria. Potassium [Moles/Vol] 4.1 mmol/L 3.5-5.1 [facility] Sodium [Moles/Vol] 137 mmol/L 136-145 [facility] - Chemistry and C hemistry - challengeOrdered By: Tony Kay on 09-24-2023 CO2 [Moles/Vol] 28.0 mmol/L 21.0-32.0 [facility] Magnesium [Mass/Vol] 2.7 mg/dL 1.6-2.6 [facility] Urea nitrogen/Creatinine [Mass ratio] 22.2 mg/mg 10-20 [facility] No Panel InformationOrdered By: Tony Kay on 09-24-2023 Estimated GFR (MDRD) Amer 68 mL/min >60 [facility] Comment on above: GFR Calc Estimated GFR (MDRD) Non-Af Amer 56 mL/min >60 [facility] Comment on above: Non- GFR Calc Serum or plasma calcium tracy urement (mass/volume)Ordered By: Tony Kay on 09-24-2023 Calcium [Mass/Vol] 9.4 mg/dL 8.5-10.1 [facility] Serum or plasma creatinine m easurement (mass/volume)Ordered By: Tony Kay on 09-24-2023 Creatinine [Mass/Vol] 1.35 mg/dL 0.70-1.30 [facility] Comment on above: The validity of the calculated GFR & GFRAA in patients over 70 years has not been determined. Clinical correlation is essential. Serum or plasma urea nitroge n measurement (mass/volume)Ordered By: Tony Kay on 09-24-2023 Urea nitrogen [Mass/Vol] 30 mg/dL 04-24 [facility] Thin prep Papanicolaou smear with manual screeningOrdered By: Tony Kay on 09-24-2023 Thin prep Papanicolaou smear with manual screening 5 5-15 [facility] Basophil percentageOrdered B y: Tony Kay on 09-13-2023 Chloride [Moles/Vol] 104 mmol/L 98-107 [facility] Glucose [Mass/Vol] 122 mg/dL 74-106 [facility] Comment on above: Fasting Glucose resu lt from 100 to 125 mg/dL suggests IMPAIRED HOMEOSTASIS per A.D.A. criteria. Potassium [Moles/Vol] 4.1 mmol/L 3.5-5.1 [facility] Sodium [Moles/Vol] 136 mmol/L 136-145 [facility] - Chemistry and C hemistry - challengeOrdered By: Tony Kay on 09-13-2023 CO2 [Moles/Vol] 28.0 mmol/L 21.0-32.0 [facility] Urea nitrogen/Creatinine [Mass ratio] 23.7 mg/mg 10-20 [facility] No Panel InformationOrdered By: Tony Kay on 09-13-2023 Estimated GFR (MDRD) Amer 70 mL/min >60 [facility] Comment on above: GFR Calc Estimated GFR (MDRD) Non-Af Amer 58 mL/min >60 [facility] Comment on above: Non- GFR Calc Serum or plasma calcium tracy urement (mass/volume)Ordered By: Tony Kay on 09-13-2023 Calcium [Mass/Vol] 9.5 mg/dL 8.5-10.1 [facility] Serum or plasma creatinine m easurement (mass/volume)Ordered By: Tony Kay on 09-13-2023 Creatinine [Mass/Vol] 1.31 mg/dL 0.70-1.30 [facility] Comment on above: The validity of the calculated GFR & GFRAA in patients over 70 years has not been determined. Clinical correlation is essential. Serum or plasma urea nitroge n measurement (mass/volume)Ordered By: Tony Kay on 09-13-2023 Urea nitrogen [Mass/Vol] 31 mg/dL 7-18 [facility] Thin prep Papanicolaou smear with manual screeningOrdered By: Tony Kay on 09-13-2023 Thin prep Papanicolaou smear with manual screening 4 5-15 [facility] Basophil percentageOrdered B y: Tony Kay on 08-14-2023 Chloride [Moles/Vol] 102 mmol/L 98-107 [facility] Glucose [Mass/Vol] 118 mg/dL 74-106 [facility] Comment on above: Fasting Glucose resu lt from 100 to 125 mg/dL suggests IMPAIRED HOMEOSTASIS per A.D.A. criteria. Potassium [Moles/Vol] 4.1 mmol/L 3.5-5.1 [facility] Comment on above: Slight Hemolysis, Re sult may be falsely increased. Sodium [Moles/Vol] 135 mmol/L 136-145 [facility] Laboratory - Chemistry and C hemistry - challengeOrdered By: Tony Kay on 08-14-2023 CO2 [Moles/Vol] 31.0 mmol/L 21.0-32.0 [facility] Magnesium [Mass/Vol] 2.4 mg/dL 1.6-2.6 [facility] Comment on above: Slight Hemolysis, Re sult may be falsely increased. Urea nitrogen/Creatinine [Mass ratio] 23.1 mg/mg 10-20 [facility] No Panel InformationOrdered By: Tony Kay on 08-14-2023 Estimated GFR (MDRD) Amer 77 mL/min >60 [facility] Comment on above: GFR Calc Estimated GFR (MDRD) Non-Af Amer 64 mL/min >60 [facility] Comment on above: Non- GFR Calc Serum or plasma calcium tracy urement (mass/volume)Ordered By: Tony Kay on 08-14-2023 Calcium [Mass/Vol] 9.3 mg/dL 8.5-10.1 [facility] Serum or plasma creatinine m easurement (mass/volume)Ordered By: Tony Kay on 08-14-2023 Creatinine [Mass/Vol] 1.21 mg/dL 0.70-1.30 [facility] Comment on above: The validity of the calculated GFR & GFRAA in patients over 70 years has not been determined. Clinical correlation is essential. Serum or plasma urea nitroge n measurement (mass/volume)Ordered By: Tony Kay on 08-14-2023 Urea nitrogen [Mass/Vol] 28 mg/dL 7-18 [facility] Thin prep Papanicolaou smear with manual screeningOrdered By: Tony Kay on 08-14-2023 Thin prep Papanicolaou smear with manual screening 2 5-15 [facility] Basophil percentageOrdered B y: Rodney Salvador on 06-15-2023 Chloride [Moles/Vol] 104 mmol/L 98-107 [facility] Glucose [Mass/Vol] 113 mg/dL 74-106 [facility] Comment on above: Fasting Glucose resu lt from 100 to 125 mg/dL suggests IMPAIRED HOMEOSTASIS per A.D.A. criteria. Potassium [Moles/Vol] 4.5 mmol/L 3.5-5.1 [facility] Sodium [Moles/Vol] 137 mmol/L 136-145 [facility] Laboratory - Chemistry and C hemistry - challengeOrdered By: Rodney Salvador on 06-15-2023 CO2 [Moles/Vol] 29.0 mmol/L 21.0-32.0 [facility] Magnesium [Mass/Vol] 2.6 mg/dL 1.6-2.6 [facility] Urea nitrogen/Creatinine [Mass ratio] 23.7 mg/mg 10-20 [facility] No Panel InformationOrdered By: Rodney Salvador on 06-15-2023 Estimated GFR (MDRD) Amer 70 mL/min >60 [facility] Comment on above: GFR Calc Estimated GFR (MDRD) Non-Af Amer 58 mL/min >60 [facility] Comment on above: Non- GFR Calc Vitamin B6 Level 28.7 ug/L 3.4-65.2 [facility] Comment on above: Deficiency: <3.4 Mar ginal: 3.4 - 5.1 Adequate: >5.1Performed at: [facility] [id number] Director: Carlos Sim MD, Phone: [phone] Serum or plasma calcium tracy urement (mass/volume)Ordered By: Rodney Salvador on 06-15-2023 Calcium [Mass/Vol] 9.2 mg/dL 8.5-10.1 [facility] Serum or plasma creatinine m easurement (mass/volume)Ordered By: Rodney Salvador on 06-15-2023 Creatinine [Mass/Vol] 1.31 mg/dL 0.70-1.30 [facility] Comment on above: The validity of the calculated GFR & GFRAA in patients over 70 years has not been determined. Clinical correlation is essential. Serum or plasma urea nitroge n measurement (mass/volume)Ordered By: Rodney Salvador on 06-15-2023 Urea nitrogen [Mass/Vol] 31 mg/dL 7-18 [facility] Thin prep Papanicolaou smear with manual screeningOrdered By: Rodney Salvador on 06-15-2023 Thin prep Papanicolaou smear with manual screening 4 5-15 [facility] No Panel InformationOrdered By: Ben Emmanuel on 06-04-2023 Giardia Antigen (RICKI) [facility] Giardia Antigen (RICKI) [facility] Miscellaneous Test E [facility] Comment on above: Salmonella/Shigella Screen No Salmonella or Shigella recovered.Campylobacter Culture No Campylobacter species isolated.E coli Shiga Toxin EIA Negative ____ TESTING PERFORMED AT [facility]. ORIGINAL REPORT ON FILE IN LAB CONTAINS ADDITIONAL TEST SITE INFORMATION. Stool Calprotectin 13 ug/g 0-120 [facility] Comment on above: Concentration Interp retation Follow-Up< 5 - 50 ug/g Normal None>50 -120 ug/g Borderline Re-evaluate in 4-6 weeks >120 ug/g Abnormal Repeat as clinically indicatedPerformed at: [address] [id number] Director: Hesham Christopher PhD, Phone: [phone] at: [address] [id number] Director: Carlos Sim MD, Phone: [phone] Stool Neutral Fats Normal . [facility] Comment on above: Normal (<60 Droplets /HPF) Stool Pancreatic Elastase 74 >200 [facility] Comment on above: Result Units: ug [address]./gResults verified by repeat testing Severe Pancreatic Insufficiency: <100 Moderate Pancreatic Insufficiency: 100 - 200 Normal: >200Performed at: [address] [id number] Director: Carlos Sim MD, Phone: [phone] Ova and parasitesOrdered By: Ben Emmanuel on 06-04-2023 Ova and parasites identified LM Nom (Unsp spec) [facility] Ova and parasites identified LM Nom (Unsp spec) [facility] Qualitative fecal fat or lip idsOrdered By: Ben Emmanuel on 06-04-2023 Fat Ql (Stl) Increased . [facility] Comment on above: Normal (<100 Droplet s/HPF) Atypical perinuclear antineu trophil cytoplasmic antibodies measurementOrdered By: Ben Emmanuel on 06-01-2023 Neutrophil cytoplasmic Ab.perinuclear.atypical IF (S) [Titer] <1:20 titer Neg:<1:20 [facility] Comment on above: The atypical pANCA p attern has been observed in asignificant percentage of patients with ulcerative colitis,primary sclerosing cholangitis and autoimmune hepatitis.Performed at: - [facility] [id number] Director: Hesham Christopher PhD, Phone: [phone] at: - [facility] [id number] Director: Carlos Sim MD, Phone: [phone] Basophil percentageOrdered B y: Ben Emmanuel on 06-01-2023 Basophil percentage < 0.2 AI 0.0-0.9 [facility] Bilirubin [Mass/Vol] 0.40 mg/dL 0.20-1.00 [facility] Comment on above: For patients on eltr ombopag therapy, use of Dimension [place] TBIL is not recommended. Chloride [Moles/Vol] 104 mmol/L 98-107 [facility] Glucose [Mass/Vol] 110 mg/dL 74-106 [facility] Comment on above: Fasting Glucose resu lt from 100 to 125 mg/dL suggests IMPAIRED HOMEOSTASIS per A.D.A. criteria. Potassium [Moles/Vol] 3.5 mmol/L 3.5-5.1 [facility] Protein [Mass/Vol] 8.2 g/dL 6.4-8.2 [facility] Sodium [Moles/Vol] 139 mmol/L 136-145 [facility] Erythrocyte sedimentation ra teOrdered By: Ben Emmanuel on 06-01-2023 ESR (Bld) [Velocity] 39 mm/h 0-20 [facility] Interpretation of serum or p lasma protein pattern by immunofixation (narrative resultOrdered By: Ben Emmanuel on 06-01-2023 Protein Fractions Immunofixation Harsha [Interp] See comment [facility] Comment on above: Result: Not Observed Laboratory - Chemistry and C hemistry - challengeOrdered By: Ben Emmanuel on 06-01-2023 ALP [Catalytic activity/Vol] 72 U/L 45-117 [facility] ALT [Catalytic activity/Vol] 41 U/L 16-61 [facility] CO2 [Moles/Vol] 28.0 mmol/L 21.0-32.0 [facility] Urea nitrogen/Creatinine [Mass ratio] 23.1 mg/mg 10-20 [facility] No Panel InformationOrdered By: Ben Emmanuel on 06-01-2023 Addendum Document Comment . [facility] Comment on above: Protein electrophore sis scan will follow via computer,mail, or employee communications intern delivery. Centromere B Antibody <0.2 AI 0.0-0.9 [facility] Endomysial IgA Antibody Negative Negative [facility] Estimated GFR (MDRD) Amer 80 mL/min >60 [facility] Comment on above: GFR Calc Estimated GFR (MDRD) Non-Af Amer 66 mL/min >60 [facility] Comment on above: Non- GFR Calc Immunoglobulin E 229 IU/mL 6-495 [facility] PEANUT [employer] Antibody <0.2 AI 0.0-0.9 [facility] Serum DNA double strand anti body assay (units/volume)Ordered By: Ben Emmanuel on 06-01-2023 DNA double strand Ab Qn (S) 4 [IU]/mL 0-9 [facility] Comment on above: Negative <5 Equivoca l 5 - 9 Positive >[address]-1 antibody assay (u nits/volume)Ordered By: Ben Emmanuel on 06-01-2023 Court-1 extractable nuclear Ab Qn (S) <0.2 AI 0.0-0.9 [facility] Serum Scl-70 extractable nuc lear antibody assay (units/volume)Ordered By: Ben Emmanuel on 06-01-2023 SCL-70 extractable nuclear Ab Qn (S) <0.2 AI 0.0-0.9 [facility] Serum Kay extractable nucl ear antibody detectionOrdered By: Ben Emmanuel on 06-01-2023 Kay extractable nuclear Ab Ql (S) <0.2 AI 0.0-0.9 [facility] Serum [id number] measu rement by electrophoresisOrdered By: Ben Emmanuel on 06-01-2023 Alpha 1 globulin Elph [Mass/Vol] 0.3 g/dL 0.0-0.4 [facility] Alpha 1 globulin Elph [Mass/Vol] 0.8 g/dL 0.4-1.0 [facility] Serum classic neutrophil cyt oplasmic antibody assay (units/volume)Ordered By: Ben Emmanuel on 06-01-2023 Neutrophil cytoplasmic Ab.classic Qn (S) <1:20 titer Neg:<1:20 [facility] Serum globulin measurement ( mass/volume)Ordered By: Ben Emmanuel on 06-01-2023 Globulin (S) [Mass/Vol] 3.7 g/dL 2.2-3.9 [facility] Serum or plasma C reactive p rotein measurement (mass/volume)Ordered By: Ben Emmanuel on 06-01-2023 CRP [Mass/Vol] 12.50 mg/L 0.0-3.0 [facility] Comment on above: C-Reactive Protein ( CRP) provides useful information for thediagnosis, therapy and monitoring of inflammatory processesand associated diseases. For the evaluation of Relative Riskfor Cardiovascular Disease, a High Sensitivity CRP (HSCRP)should be ordered. Serum or plasma IgA measurem ent (mass/volume)Ordered By: Ben Emmanuel on 06-01-2023 IgA [Mass/Vol] 378 mg/dL 61-437 [facility] Serum or plasma IgG measurem ent (mass/volume)Ordered By: Ben Emmanuel on 06-01-2023 IgG [Mass/Vol] 1498 mg/dL 603-1613 [facility] Serum or plasma IgM measurem ent (mass/volume)Ordered By: Ben Emmanuel on 06-01-2023 IgM [Mass/Vol] 121 mg/dL 20-172 [facility] Serum or plasma albumin tracy urement (mass/volume)Ordered By: Ben mEmanuel on 06-01-2023 Albumin [Mass/Vol] 3.6 g/dL 2.9-4.4 [facility] Serum or plasma albumin/glob ulin mass ratioOrdered By: Ben Emmanuel on 06-01-2023 Albumin/Globulin [Mass ratio] 0.8 {ratio} 0.9-2.4 [facility] Serum or plasma beta globuli n measurement by electrophoresis (mass/volume)Ordered By: Ben Emmanuel on 06-01-2023 Beta globulin Elph [Mass/Vol] 1.4 g/dL 0.7-1.3 [facility] Serum or plasma calcium tracy urement (mass/volume)Ordered By: Ben Emmanuel on 06-01-2023 Calcium [Mass/Vol] 9.2 mg/dL 8.5-10.1 [facility] Serum or plasma creatinine m easurement (mass/volume)Ordered By: Ben Emmanuel on 06-01-2023 Creatinine [Mass/Vol] 1.17 mg/dL 0.70-1.30 [facility] Comment on above: The validity of the calculated GFR & GFRAA in patients over 70 years has not been determined. Clinical correlation is essential. Serum or plasma ferritin cliff surement (mass/volume)Ordered By: Ben Emmanuel on 06-01-2023 Ferritin [Mass/Vol] 145 ng/mL 26-388 [facility] Serum or plasma gamma globul in measurement by electrophoresis (mass/volume)Ordered By: Ben Emmanuel on 06-01-2023 Gamma globulin Elph [Mass/Vol] 1.2 g/dL 0.4-1.8 [facility] Serum or plasma immunoelectr ophoresis interpretation (nominal result)Ordered By: Ben Emmanuel on 06-01-2023 Interpretation IEP [Interp] Comment . [facility] Comment on above: No monoclonality det ected. Serum or plasma urea nitroge n measurement (mass/volume)Ordered By: Ben Emmanuel on 06-01-2023 Urea nitrogen [Mass/Vol] 27 mg/dL 7-18 [facility] Serum perinuclear neutrophil cytoplasmic antibody titer by immunofluorescenceOrdered By: Ben Emmanuel on 06-01-2023 Neutrophil cytoplasmic Ab.perinuclear IF (S) [Titer] <1:20 titer Neg:<1:20 [facility] Comment on above: The presence of posi tive fluorescence exhibiting P-ANCA orC-ANCA patterns alone is not specific for the diagnosis ofWegener's Granulomatosis (WG) or microscopic polyangiitis.Decisions about treatment should not be based solely onANCA IFA results. The [employer] AN[employer] Consensusrecommends follow up testing of positive sera with both NM-3 and MPO-ANCA enzyme immunoassays. As many as 5% serumsamples are positive only by EIA. Ref. AM J Clin Oofhld2265;111:507-513. Serum tissue transglutaminas e IgA antibody assay (units/volume)Ordered By: Ben Emmanuel on 06-01-2023 tTG IgA Qn (S) 3 U/mL 0-3 [facility] Comment on above: Negative 0 - 3 Weak Positive 4 - 10 Positive >10 Tissue Transglutaminase (tTG) has been identified as the endomysial antigen. Studies have demonstr- ated that endomysial IgA antibodies have over 99% specificity for gluten sensitive enteropathy. Thin prep Papanicolaou smear with manual screeningOrdered By: Ben Emmanuel on 06-01-2023 Thin prep Papanicolaou smear with manual screening 19 U/L 15-37 [facility] Thin prep Papanicolaou smear with manual screening 7 5-15 [facility] Thin prep Papanicolaou smear with manual screening 1.0 0.7-1.7 [facility] Total protein bloodOrdered B y: Ben Emmanuel on 06-01-2023 Protein [Mass/Vol] 7.3 g/dL 6.0-8.5 [facility] Basophil percentageOrdered B y: Tony Kay on 05-21-2023 Chloride [Moles/Vol] 104 mmol/L 98-107 [facility] Glucose [Mass/Vol] 112 mg/dL 74-106 [facility] Comment on above: Fasting Glucose resu lt from 100 to 125 mg/dL suggests IMPAIRED HOMEOSTASIS per A.D.A. criteria. Potassium [Moles/Vol] 4.3 mmol/L 3.5-5.1 [facility] Sodium [Moles/Vol] 137 mmol/L 136-145 [facility] Laboratory - Chemistry and C hemistry - challengeOrdered By: Tony Kay on 05-21-2023 CO2 [Moles/Vol] 26.0 mmol/L 21.0-32.0 [facility] Cobalamin (Vitamin B12) [Mass/Vol] 1617 pg/mL 211-911 [facility] Urea nitrogen/Creatinine [Mass ratio] 22.0 mg/mg 10-20 [facility] No Panel InformationOrdered By: Tony Kay on 05-21-2023 Vitamin B6 Level 120.1 ug/L 3.4-65.2 [facility] Comment on above: Deficiency: <3.4 Mar ginal: 3.4 - 5.1 Adequate: >5.1 Whole Blood Vitamin B1 Level 127.8 nmol/L 66.5-200.0 [facility] Comment on above: Performed at: [address] [id number] Director: Carlos Sim MD, Phone: [phone] Estimated GFR (MDRD) Amer 79 mL/min >60 [facility] Comment on above: GFR Calc Estimated GFR (MDRD) Non-Af Amer 65 mL/min >60 [facility] Comment on above: Non- GFR Calc No Panel InformationOrdered By: Rodney Salvador on 05-21-2023 Vitamin D 25-Hydroxy 77.8 ng/mL [facility] Comment on above: Vitamin D 25(OH) Sta tus Range Deficiency <20 ng/mL (50nmol/L) Insufficiency 20 - 30 ng/mL (50 - 75 nmol/L) Sufficiency 30 - 100 ng/mL (75 - 250 nmol/L) Toxicity >100 ng/mL (>250 nmol/L) Serum or plasma calcium tracy urement (mass/volume)Ordered By: Tony Kay on 05-21-2023 Calcium [Mass/Vol] 9.2 mg/dL 8.5-10.1 [facility] Serum or plasma creatinine m easurement (mass/volume)Ordered By: Tony Kay on 05-21-2023 Creatinine [Mass/Vol] 1.18 mg/dL 0.70-1.30 [facility] Comment on above: The validity of the calculated GFR & GFRAA in patients over 70 years has not been determined. Clinical correlation is essential. Serum or plasma ferritin cliff surement (mass/volume)Ordered By: Rodney Salvador on 05-21-2023 Ferritin [Mass/Vol] 180 ng/mL 26-388 [facility] Serum or plasma folate measu rement (mass/volume)Ordered By: Tony Kay on 05-21-2023 Folate [Mass/Vol] 16.10 ng/mL 3.1-55.4 [facility] Serum or plasma urea nitroge n measurement (mass/volume)Ordered By: Tony Kay on 05-21-2023 Urea nitrogen [Mass/Vol] 26 mg/dL 7-18 [facility] Thin prep Papanicolaou smear with manual screeningOrdered By: Tony Kay on 05-21-2023 Thin prep Papanicolaou smear with manual screening 7 5-15 [facility] Basophil percentageOrdered B y: Tony Kay on 05-10-2023 Chloride [Moles/Vol] 104 mmol/L 98-107 [facility] Glucose [Mass/Vol] 113 mg/dL 74-106 [facility] Comment on above: Fasting Glucose resu lt from 100 to 125 mg/dL suggests IMPAIRED HOMEOSTASIS per A.D.A. criteria. Potassium [Moles/Vol] 4.1 mmol/L 3.5-5.1 [facility] Sodium [Moles/Vol] 136 mmol/L 136-145 [facility] Laboratory - Chemistry and C hemistry - challengeOrdered By: Tony Kay on 05-10-2023 CO2 [Moles/Vol] 26.0 mmol/L 21.0-32.0 [facility] Urea nitrogen/Creatinine [Mass ratio] 19.8 mg/mg 10-20 [facility] No Panel InformationOrdered By: Tony Kay on 05-10-2023 Estimated GFR (MDRD) Amer 70 mL/min >60 [facility] Comment on above: GFR Calc Estimated GFR (MDRD) Non-Af Amer 58 mL/min >60 [facility] Comment on above: Non- GFR Calc Serum or plasma calcium tracy urement (mass/volume)Ordered By: Tony Kay on 05-10-2023 Calcium [Mass/Vol] 9.2 mg/dL 8.5-10.1 [facility] Serum or plasma creatinine m easurement (mass/volume)Ordered By: Tony Kay on 05-10-2023 Creatinine [Mass/Vol] 1.31 mg/dL 0.70-1.30 [facility] Comment on above: The validity of the calculated GFR & GFRAA in patients over 70 years has not been determined. Clinical correlation is essential. Serum or plasma urea nitroge n measurement (mass/volume)Ordered By: Tony Kay on 05-10-2023 Urea nitrogen [Mass/Vol] 26 mg/dL 7-18 [facility] Thin prep Papanicolaou smear with manual screeningOrdered By: Tony Kay on 05-10-2023 Thin prep Papanicolaou smear with manual screening 6 5-15 [facility] Basophil percentageOrdered B y: Tony Kay on 04-30-2023 Chloride [Moles/Vol] 104 mmol/L 98-107 [facility] Glucose [Mass/Vol] 107 mg/dL 74-106 [facility] Comment on above: Fasting Glucose resu lt from 100 to 125 mg/dL suggests IMPAIRED HOMEOSTASIS per A.D.A. criteria. Potassium [Moles/Vol] 3.9 mmol/L 3.5-5.1 [facility] Sodium [Moles/Vol] 137 mmol/L 136-145 [facility] Laboratory - Chemistry and C hemistry - challengeOrdered By: Tony Kay on 04-30-2023 CO2 [Moles/Vol] 27.0 mmol/L 21.0-32.0 [facility] Magnesium [Mass/Vol] 2.7 mg/dL 1.6-2.6 [facility] Urea nitrogen/Creatinine [Mass ratio] 21.1 mg/mg 10-20 [facility] No Panel InformationOrdered By: Tony Kay on 04-30-2023 Estimated GFR (MDRD) Amer 87 mL/min >60 [facility] Comment on above: GFR Calc Estimated GFR (MDRD) Non-Af Amer 72 mL/min >60 [facility] Comment on above: Non- GFR Calc Serum or plasma calcium tracy urement (mass/volume)Ordered By: Tony Kay on 04-30-2023 Calcium [Mass/Vol] 9.1 mg/dL 8.5-10.1 [facility] Serum or plasma creatinine m easurement (mass/volume)Ordered By: Tony Kay on 04-30-2023 Creatinine [Mass/Vol] 1.09 mg/dL 0.70-1.30 [facility] Comment on above: The validity of the calculated GFR & GFRAA in patients over 70 years has not been determined. Clinical correlation is essential. Serum or plasma urea nitroge n measurement (mass/volume)Ordered By: Tony Kay on 04-30-2023 Urea nitrogen [Mass/Vol] 23 mg/dL 7-18 [facility] Thin prep Papanicolaou smear with manual screeningOrdered By: Tony Kay on 04-30-2023 Thin prep Papanicolaou smear with manual screening 6 5-15 [facility] Basophil percentageOrdered B y: Tony Kay on 04-25-2023 Chloride [Moles/Vol] 98 mmol/L 98-107 [facility] Glucose [Mass/Vol] 118 mg/dL 74-106 [facility] Comment on above: Fasting Glucose resu lt from 100 to 125 mg/dL suggests IMPAIRED HOMEOSTASIS per A.D.A. criteria. Potassium [Moles/Vol] 3.3 mmol/L 3.5-5.1 [facility] Sodium [Moles/Vol] 136 mmol/L 136-145 [facility] Laboratory - Chemistry and C hemistry - challengeOrdered By: Tony Kay on 04-25-2023 CO2 [Moles/Vol] 32.0 mmol/L 21.0-32.0 [facility] Magnesium [Mass/Vol] 2.6 mg/dL 1.6-2.6 [facility] Urea nitrogen/Creatinine [Mass ratio] 20.2 mg/mg 10-20 [facility] No Panel InformationOrdered By: Tony Kay on 04-25-2023 Estimated GFR (MDRD) Amer 78 mL/min >60 [facility] Comment on above: GFR Calc Estimated GFR (MDRD) Non-Af Amer 65 mL/min >60 [facility] Comment on above: Non- GFR Calc Serum or plasma calcium tracy urement (mass/volume)Ordered By: Tony Kay on 04-25-2023 Calcium [Mass/Vol] 9.4 mg/dL 8.5-10.1 [facility] Serum or plasma creatinine m easurement (mass/volume)Ordered By: Tony Kay on 04-25-2023 Creatinine [Mass/Vol] 1.19 mg/dL 0.70-1.30 [facility] Comment on above: The validity of the calculated GFR & GFRAA in patients over 70 years has not been determined. Clinical correlation is essential. Serum or plasma urea nitroge n measurement (mass/volume)Ordered By: Tony Kay on 04-25-2023 Urea nitrogen [Mass/Vol] 24 mg/dL 7-18 [facility] Thin prep Papanicolaou smear with manual screeningOrdered By: Tony Kay on 04-25-2023 Thin prep Papanicolaou smear with manual screening 6 5-15 [facility] Basophil percentageOrdered B y: Tony Kay on 04-12-2023 Chloride [Moles/Vol] 102 mmol/L 98-107 [facility] Glucose [Mass/Vol] 109 mg/dL 74-106 [facility] Comment on above: Fasting Glucose resu lt from 100 to 125 mg/dL suggests IMPAIRED HOMEOSTASIS per A.D.A. criteria. Potassium [Moles/Vol] 3.7 mmol/L 3.5-5.1 [facility] Sodium [Moles/Vol] 138 mmol/L 136-145 [facility] Laboratory - Chemistry and C hemistry - challengeOrdered By: Tony Kay on 04-12-2023 CO2 [Moles/Vol] 31.0 mmol/L 21.0-32.0 [facility] Urea nitrogen/Creatinine [Mass ratio] 20.8 mg/mg 10-20 [facility] No Panel InformationOrdered By: Tony Kay on 04-12-2023 Estimated GFR (MDRD) Amer 74 mL/min >60 [facility] Comment on above: GFR Calc Estimated GFR (MDRD) Non-Af Amer 61 mL/min >60 [facility] Comment on above: Non- GFR Calc Serum or plasma calcium tracy urement (mass/volume)Ordered By: Tony Kay on 04-12-2023 Calcium [Mass/Vol] 9.5 mg/dL 8.5-10.1 [facility] Serum or plasma creatinine m easurement (mass/volume)Ordered By: Tony Kay on 04-12-2023 Creatinine [Mass/Vol] 1.25 mg/dL 0.70-1.30 [facility] Comment on above: The validity of the calculated GFR & GFRAA in patients over 70 years has not been determined. Clinical correlation is essential. Serum or plasma urea nitroge n measurement (mass/volume)Ordered By: Tony Kay on 04-12-2023 Urea nitrogen [Mass/Vol] 26 mg/dL 7-18 [facility] Thin prep Papanicolaou smear with manual screeningOrdered By: Tony Kay on 04-12-2023 Thin prep Papanicolaou smear with manual screening 5 5-15 [facility] Basophil percentageOrdered B y: Tony Kay on 04-06-2023 Chloride [Moles/Vol] 109 mmol/L 98-107 [facility] Glucose [Mass/Vol] 107 mg/dL 74-106 [facility] Comment on above: Fasting Glucose resu lt from 100 to 125 mg/dL suggests IMPAIRED HOMEOSTASIS per A.D.A. criteria. Potassium [Moles/Vol] 4.6 mmol/L 3.5-5.1 [facility] Sodium [Moles/Vol] 139 mmol/L 136-145 [facility] Laboratory - Chemistry and C hemistry - challengeOrdered By: Tony Kay on 04-06-2023 CO2 [Moles/Vol] 27.0 mmol/L 21.0-32.0 [facility] Urea nitrogen/Creatinine [Mass ratio] 22.0 mg/mg 10-20 [facility] No Panel InformationOrdered By: Tony Kay on 04-06-2023 Estimated GFR (MDRD) Amer 75 mL/min >60 [facility] Comment on above: GFR Calc Estimated GFR (MDRD) Non-Af Amer 62 mL/min >60 [facility] Comment on above: Non- GFR Calc Serum or plasma C reactive p rotein measurement (mass/volume)Ordered By: Tony Kay on 04-06-2023 CRP [Mass/Vol] 10.30 mg/L 0.0-3.0 [facility] Comment on above: C-Reactive Protein ( CRP) provides useful information for thediagnosis, therapy and monitoring of inflammatory processesand associated diseases. For the evaluation of Relative Riskfor Cardiovascular Disease, a High Sensitivity CRP (HSCRP)should be ordered. Serum or plasma calcium tracy urement (mass/volume)Ordered By: Tony Kay on 04-06-2023 Calcium [Mass/Vol] 9.8 mg/dL 8.5-10.1 [facility] Serum or plasma creatinine m easurement (mass/volume)Ordered By: Tony Kay on 04-06-2023 Creatinine [Mass/Vol] 1.23 mg/dL 0.70-1.30 [facility] Comment on above: The validity of the calculated GFR & GFRAA in patients over 70 years has not been determined. Clinical correlation is essential. Serum or plasma urea nitroge n measurement (mass/volume)Ordered By: Tony Kay on 04-06-2023 Urea nitrogen [Mass/Vol] 27 mg/dL 7-18 [facility] Thin prep Papanicolaou smear with manual screeningOrdered By: Tony Kay on 04-06-2023 Thin prep Papanicolaou smear with manual screening 3 5-15 [facility] Basophil percentageOrdered B y: Tony Kay on 03-30-2023 Chloride [Moles/Vol] 103 mmol/L 98-107 [facility] Glucose [Mass/Vol] 143 mg/dL 74-106 [facility] Comment on above: Fasting Glucose resu lt greater than or equal to 126 mg/dL suggests DIABETES MELLITUS per A.D.A. criteria. Potassium [Moles/Vol] 3.6 mmol/L 3.5-5.1 [facility] Comment on above: Slight Hemolysis, Re sult may be falsely increased. Sodium [Moles/Vol] 138 mmol/L 136-145 [facility] Laboratory - Chemistry and C hemistry - challengeOrdered By: Tony Kay on 03-30-2023 CO2 [Moles/Vol] 26.0 mmol/L 21.0-32.0 [facility] Urea nitrogen/Creatinine [Mass ratio] 22.1 mg/mg - [facility] No Panel InformationOrdered By: Tony Kay on 03-30-2023 Estimated GFR (MDRD) Amer 67 mL/min >60 [facility] Comment on above: GFR Calc Estimated GFR (MDRD) Non-Af Amer 56 mL/min >60 [facility] Comment on above: Non- GFR Calc Serum or plasma calcium tracy urement (mass/volume)Ordered By: Tony Kay on 03-30-2023 Calcium [Mass/Vol] 9.2 mg/dL 8.5-10.1 [facility] Serum or plasma creatinine m easurement (mass/volume)Ordered By: Tony Kay on 03-30-2023 Creatinine [Mass/Vol] 1.36 mg/dL 0.70-1.30 [facility] Comment on above: The validity of the calculated GFR & GFRAA in patients over 70 years has not been determined. Clinical correlation is essential. Serum or plasma urea nitroge n measurement (mass/volume)Ordered By: Tony Kay on 03-30-2023 Urea nitrogen [Mass/Vol] 30 mg/dL 7-18 [facility] Thin prep Papanicolaou smear with manual screeningOrdered By: Tony Kay on 03-30-2023 Thin prep Papanicolaou smear with manual screening 9 5-15 [facility] Basophil percentageOrdered B y: Dr. Kay on 03-23-2023 Chloride [Moles/Vol] 101 mmol/L 98-107 [facility] Glucose [Mass/Vol] 109 mg/dL 74-106 [facility] Comment on above: Fasting Glucose resu lt from 100 to 125 mg/dL suggests IMPAIRED HOMEOSTASIS per A.D.A. criteria. Potassium [Moles/Vol] 3.6 mmol/L 3.5-5.1 [facility] Sodium [Moles/Vol] 139 mmol/L 136-145 [facility] Laboratory - Chemistry and C hemistry - challengeOrdered By: Dr. Kay on 03-23-2023 CO2 [Moles/Vol] 27.0 mmol/L 21.0-32.0 [facility] Urea nitrogen/Creatinine [Mass ratio] 23.5 mg/mg 07-27 [facility] No Panel InformationOrdered By: Dr. Kay on 03-23-2023 Estimated GFR (MDRD) Amer 78 mL/min >60 [facility] Comment on above: GFR Calc Estimated GFR (MDRD) Non-Af Amer 65 mL/min >60 [facility] Comment on above: Non- GFR Calc Serum or plasma calcium tracy urement (mass/volume)Ordered By: Dr. Kay on 03-23-2023 Calcium [Mass/Vol] 9.3 mg/dL 8.5-10.1 [facility] Serum or plasma creatinine m easurement (mass/volume)Ordered By: Dr. Kay on 03-23-2023 Creatinine [Mass/Vol] 1.19 mg/dL 0.70-1.30 [facility] Comment on above: The validity of the calculated GFR & GFRAA in patients over 70 years has not been determined. Clinical correlation is essential. Serum or plasma urea nitroge n measurement (mass/volume)Ordered By: Dr. Kay on 03-23-2023 Urea nitrogen [Mass/Vol] 28 mg/dL 7-18 [facility] Thin prep Papanicolaou smear with manual screeningOrdered By: Dr. Kay on 03-23-2023 Thin prep Papanicolaou smear with manual screening 11 5-15 [facility] Basophil percentageOrdered B y: Dr. Kay on 03-12-2023 Chloride [Moles/Vol] 99 mmol/L 98-107 [facility] Glucose [Mass/Vol] 126 mg/dL 74-106 [facility] Comment on above: Fasting Glucose resu lt greater than or equal to 126 mg/dL suggests DIABETES MELLITUS per A.D.A. criteria. Potassium [Moles/Vol] 3.0 mmol/L 3.5-5.1 [facility] Sodium [Moles/Vol] 134 mmol/L 136-145 [facility] Laboratory - Chemistry and C hemistry - challengeOrdered By: Dr. Kay on 03-12-2023 CO2 [Moles/Vol] 34.0 mmol/L 21.0-32.0 [facility] Urea nitrogen/Creatinine [Mass ratio] 21.9 mg/mg 10-20 [facility] No Panel InformationOrdered By: Dr. Kay on 03-12-2023 Estimated GFR (MDRD) Amer 72 mL/min >60 [facility] Comment on above: GFR Calc Estimated GFR (MDRD) Non-Af Amer 60 mL/min >60 [facility] Comment on above: Non- GFR Calc Serum or plasma calcium tracy urement (mass/volume)Ordered By: Dr. Kay on 03-12-2023 Calcium [Mass/Vol] 9.5 mg/dL 8.5-10.1 [facility] Serum or plasma creatinine m easurement (mass/volume)Ordered By: Dr. Kay on 03-12-2023 Creatinine [Mass/Vol] 1.28 mg/dL 0.70-1.30 [facility] Comment on above: The validity of the calculated GFR & GFRAA in patients over 70 years has not been determined. Clinical correlation is essential. Serum or plasma urea nitroge n measurement (mass/volume)Ordered By: Dr. Kay on 03-12-2023 Urea nitrogen [Mass/Vol] 28 mg/dL 7-18 [facility] Thin prep Papanicolaou smear with manual screeningOrdered By: Dr. Kay on 03-12-2023 Thin prep Papanicolaou smear with manual screening 1 5-15 [facility] Basophil percentageOrdered B y: Dr. Kay on 03-06-2023 Chloride [Moles/Vol] 94 mmol/L 98-107 [facility] Glucose [Mass/Vol] 147 mg/dL 74-106 [facility] Comment on above: Fasting Glucose resu lt greater than or equal to 126 mg/dL suggests DIABETES MELLITUS per A.D.A. criteria. Potassium [Moles/Vol] 2.9 mmol/L 3.5-5.1 [facility] Comment on above: Slight Hemolysis, Re sult may be falsely increased. Sodium [Moles/Vol] 136 mmol/L 136-145 [facility] Laboratory - Chemistry and C hemistry - challengeOrdered By: Dr. Kay on 03-06-2023 CO2 [Moles/Vol] 33.0 mmol/L 21.0-32.0 [facility] Urea nitrogen/Creatinine [Mass ratio] 21.6 mg/mg 10-20 [facility] No Panel InformationOrdered By: Dr. Kay on 03-06-2023 Estimated GFR (MDRD) Amer 59 mL/min >60 [facility] Comment on above: GFR Calc Estimated GFR (MDRD) Non-Af Amer 49 mL/min >60 [facility] Comment on above: Non- GFR Calc Serum or plasma calcium tracy urement (mass/volume)Ordered By: Dr. Kay on 03-06-2023 Calcium [Mass/Vol] 10.0 mg/dL 8.5-10.1 [facility] Serum or plasma creatinine m easurement (mass/volume)Ordered By: Dr. Kay on 03-06-2023 Creatinine [Mass/Vol] 1.53 mg/dL 0.70-1.30 [facility] Comment on above: The validity of the calculated GFR & GFRAA in patients over 70 years has not been determined. Clinical correlation is essential. Serum or plasma urea nitroge n measurement (mass/volume)Ordered By: Dr. Kay on 03-06-2023 Urea nitrogen [Mass/Vol] 33 mg/dL 7-18 [facility] Thin prep Papanicolaou smear with manual screeningOrdered By: Dr. Kay on 03-06-2023 Thin prep Papanicolaou smear with manual screening 9 5-15 [facility] Basophil percentageOrdered B y: Dr. Kay on 02-23-2023 Bilirubin [Mass/Vol] 0.40 mg/dL 0.20-1.00 [facility] Comment on above: For patients on eltr ombopag therapy, use of Dimension [place] TBIL is not recommended. Chloride [Moles/Vol] 98 mmol/L 98-107 [facility] Glucose [Mass/Vol] 129 mg/dL 74-106 [facility] Comment on above: Fasting Glucose resu lt greater than or equal to 126 mg/dL suggests DIABETES MELLITUS per A.D.A. criteria. Potassium [Moles/Vol] 2.9 mmol/L 3.5-5.1 [facility] Protein [Mass/Vol] 8.2 g/dL 6.4-8.2 [facility] Sodium [Moles/Vol] 138 mmol/L 136-145 [facility] Laboratory - Chemistry and C hemistry - challengeOrdered By: Dr. Kay on 02-23-2023 ALP [Catalytic activity/Vol] 81 U/L 45-117 [facility] ALT [Catalytic activity/Vol] 45 U/L 16-61 [facility] CO2 [Moles/Vol] 34.0 mmol/L 21.0-32.0 [facility] Globulin (S) [Mass/Vol] 4.8 g/dL 2.2-4.2 [facility] Magnesium [Mass/Vol] 2.2 mg/dL 1.6-2.6 [facility] Urea nitrogen/Creatinine [Mass ratio] 23.0 mg/mg 10-20 [facility] No Panel InformationOrdered By: Dr. Kay on 02-23-2023 Estimated GFR (MDRD) Amer 73 mL/min >60 [facility] Comment on above: GFR Calc Estimated GFR (MDRD) Non-Af Amer 61 mL/min >60 [facility] Comment on above: Non- GFR Calc Serum or plasma albumin tracy urement (mass/volume)Ordered By: Dr. Kay on 02-23-2023 Albumin [Mass/Vol] 3.4 g/dL 3.2-5.0 [facility] Serum or plasma albumin/glob ulin mass ratioOrdered By: Dr. Kay on 02-23-2023 Albumin/Globulin [Mass ratio] 0.7 {ratio} 0.9-2.4 [facility] Serum or plasma calcium tracy urement (mass/volume)Ordered By: Dr. Kay on 02-23-2023 Calcium [Mass/Vol] 9.7 mg/dL 8.5-10.1 [facility] Serum or plasma creatinine m easurement (mass/volume)Ordered By: Dr. Kay on 02-23-2023 Creatinine [Mass/Vol] 1.26 mg/dL 0.70-1.30 [facility] Comment on above: The validity of the calculated GFR & GFRAA in patients over 70 years has not been determined. Clinical correlation is essential. Serum or plasma urea nitroge n measurement (mass/volume)Ordered By: Dr. Kay on 02-23-2023 Urea nitrogen [Mass/Vol] 29 mg/dL 7-18 [facility] Thin prep Papanicolaou smear with manual screeningOrdered By: Dr. Kay on 02-23-2023 Thin prep Papanicolaou smear with manual screening 28 U/L 15-37 [facility] Thin prep Papanicolaou smear with manual screening 6 5-15 [facility] Thin prep Papanicolaou smear with manual screening 298 mOsm/KG 280-301 [facility] Basophil percentageOrdered B y: Dr. Kay on 02-07-2023 Bilirubin [Mass/Vol] 0.40 mg/dL 0.20-1.00 [facility] Comment on above: For patients on eltr ombopag therapy, use of [place] TBIL is not recommended. Chloride [Moles/Vol] 108 mmol/L 98-107 [facility] Glucose [Mass/Vol] 101 mg/dL 74-106 [facility] Comment on above: Fasting Glucose resu lt from 100 to 125 mg/dL suggests IMPAIRED HOMEOSTASIS per A.D.A. criteria. Potassium [Moles/Vol] 3.9 mmol/L 3.5-5.1 [facility] Protein [Mass/Vol] 7.7 g/dL 6.4-8.2 [facility] Sodium [Moles/Vol] 141 mmol/L 136-145 [facility] Laboratory - Chemistry and C hemistry - challengeOrdered By: Dr. Kay on 02-07-2023 ALP [Catalytic activity/Vol] 81 U/L 45-117 [facility] ALT [Catalytic activity/Vol] 43 U/L 16-61 [facility] CO2 [Moles/Vol] 27.0 mmol/L 21.0-32.0 [facility] Globulin (S) [Mass/Vol] 4.5 g/dL 2.2-4.2 [facility] Magnesium [Mass/Vol] 2.4 mg/dL 1.6-2.6 [facility] Urea nitrogen/Creatinine [Mass ratio] 19.8 mg/mg 10-20 [facility] No Panel InformationOrdered By: Dr. Kay on 02-07-2023 Estimated GFR (MDRD) Amer 81 mL/min >60 [facility] Comment on above: GFR Calc Estimated GFR (MDRD) Non-Af Amer 67 mL/min >60 [facility] Comment on above: Non- GFR Calc Serum or plasma C reactive p rotein measurement (mass/volume)Ordered By: Dr. Kay on 02-07-2023 CRP [Mass/Vol] 9.13 mg/L 0.0-3.0 [facility] Comment on above: C-Reactive Protein ( CRP) provides useful information for thediagnosis, therapy and monitoring of inflammatory processesand associated diseases. For the evaluation of Relative Riskfor Cardiovascular Disease, a High Sensitivity CRP (HSCRP)should be ordered. Serum or plasma albumin tracy urement (mass/volume)Ordered By: Dr. Kay on 02-07-2023 Albumin [Mass/Vol] 3.2 g/dL 3.2-5.0 [facility] Serum or plasma albumin/glob ulin mass ratioOrdered By: Dr. Kay on 02-07-2023 Albumin/Globulin [Mass ratio] 0.7 {ratio} 0.9-2.4 [facility] Serum or plasma calcium tracy urement (mass/volume)Ordered By: Dr. Kay on 02-07-2023 Calcium [Mass/Vol] 9.2 mg/dL 8.5-10.1 [facility] Serum or plasma creatinine m easurement (mass/volume)Ordered By: Dr. Kay on 02-07-2023 Creatinine [Mass/Vol] 1.16 mg/dL 0.70-1.30 [facility] Comment on above: The validity of the calculated GFR & GFRAA in patients over 70 years has not been determined. Clinical correlation is essential. Serum or plasma urea nitroge n measurement (mass/volume)Ordered By: Dr. Kay on 02-07-2023 Urea nitrogen [Mass/Vol] 23 mg/dL 7-18 [facility] Thin prep Papanicolaou smear with manual screeningOrdered By: Dr. Kay on 02-07-2023 Thin prep Papanicolaou smear with manual screening 22 U/L 15-37 [facility] Thin prep Papanicolaou smear with manual screening 6 5-15 [facility] Office Visiton 05-24-2017 Documentation of current medications (procedure) Done Invalid Interpretation Code [facility] [employer] Work Phone: Fall risk assessment No [facility] [employer] Work Phone: Protein mass conc Done [facility] [employer] Work Phone: Tobacco smoking status NHIS Never [facility] [employer] Work Phone: Tobacco smoking status NHIS Never smoker [facility] [employer] Work Phone: Tobacco use [facility] Never smoker Invalid Interpretation Code [facility] [employer] Work Phone: Office Visiton 11-08-2011 Colonoscopy (procedure) Colonoscopy (procedure) Invalid Interpretation Code [facility] [employer] Work Phone: Protein mass conc Colonoscopy (procedure) [facility] [employer] Work Phone: No Panel Information [facility] Vital Signs Date Time Vital Sign Value Performing Clinician Facility 02-17-2025 15:58-0400 Body mass index (BMI) [Ratio] 40.67 kg/m2 Milton Villanueva MD Work Phone: [facility] 02-17-2025 15:58-0400 Body weight 114.31 kg Milton Villanueva MD Work Phone: [facility] 02-17-2025 15:58-0400 Diastolic blood pressure 70 mm[Hg] Milton Villanueva MD Work Phone: [facility] 02-17-2025 15:58-0400 Heart rate 77 /min Milton Villanueva MD Work Phone: [facility] 02-17-2025 15:58-0400 SaO2% (BldA) [Mass fraction] 98 % Milton Villanueva MD Work Phone: [facility] 02-17-2025 15:58-0400 Systolic blood pressure 122 mm[Hg] Milton Villanueva MD Work Phone: [facility] 01-06-2025 10:57-0400 Diastolic blood pressure 83 mm[Hg] Drew Drea DO Work Phone: [facility] 01-06-2025 10:57-0400 Heart rate 79 /min Drew Drea DO Work Phone: [facility] 01-06-2025 10:57-0400 Systolic blood pressure 153 mm[Hg] Drew Drea DO Work Phone: [facility] 11-28-2024 13:40-0500 Body mass index (BMI) [Ratio] 40.93 kg/m2 Milton Villanueva MD Work Phone: [facility] 11-28-2024 13:40-0500 Body weight 115.03 kg Milton Villanueva MD Work Phone: [facility] 11-28-2024 13:40-0500 Diastolic blood pressure 81 mm[Hg] Milton Villanueva MD Work Phone: [facility] 11-28-2024 13:40-0500 Heart rate 78 /min Milton Villanueva MD Work Phone: [facility] 11-28-2024 13:40-0500 SaO2% (BldA) [Mass fraction] 97 % Milton Villanueva MD Work Phone: [facility] 11-28-2024 13:40-0500 Systolic blood pressure 138 mm[Hg] Milton Villanueva MD Work Phone: [facility] 08-28-2023 14:14-0500 Body height 167.[address] Tony Kay Work Phone: [facility] 08-28-2023 14:14-0500 Body mass index (BMI) [Ratio] 40 kg/m2 Dr. Tony Kay Work Phone: [facility] 08-28-2023 14:14-0500 Body temperature 97.2 [degF] Dr. Tony Kay Work Phone: [facility] 08-28-2023 14:14-0500 Body weight 112.[address] Tony Kay Work Phone: [facility] 08-28-2023 14:14-0500 Diastolic blood pressure 75 mm[Hg] Dr. Tony Kay Work Phone: [facility] 08-28-2023 14:14-0500 Heart rate 62 /min Dr. Tony Kay Work Phone: 6(498)297-479242 [place] [address] 08-28-2023 14:14-0500 Respiratory rate 16 /min Dr. Tony Kay Work Phone: [facility] 08-28-2023 14:14-0500 SaO2% (BldA) [Mass fraction] 97 % Dr. Tony Kay Work Phone: [facility] 08-28-2023 14:14-0500 Systolic blood pressure 132 mm[Hg] Dr. Tony Kay Work Phone: 8(296)550-989584 [address] 07-31-2023 13:20-0400 Body height 167.[address] Tony Kay Work Phone: 3(242)315-269694 [place] [address] 07-31-2023 13:20-0400 Body mass index (BMI) [Ratio] 39.5 kg/m2 Dr. Tony Kay Work Phone: 8(891)115-356194 [place] [address] 07-31-2023 13:20-0400 Body temperature 97.8 [degF] Dr. Tony Kay Work Phone: 6(491)564-286142 [place] [address] 07-31-2023 13:20-0400 Body weight 111.[address] Tony Kay Work Phone: 4(492)296-388594 [place] [address] 07-31-2023 13:20-0400 Diastolic blood pressure 86 mm[Hg] Dr. Tony Kay Work Phone: 7(781)576-964194 [place] [address] 07-31-2023 13:20-0400 Heart rate 67 /min Dr. Tony Kay Work Phone: 7(018)876-035642 [place] [address] 07-31-2023 13:20-0400 Respiratory rate 16 /min Dr. Tony Kay Work Phone: [facility] 07-31-2023 13:20-0400 SaO2% (BldA) [Mass fraction] 92 % Dr. Tony Kay Work Phone: [facility] 07-31-2023 13:20-0400 Systolic blood pressure 137 mm[Hg] Dr. Tony Kay Work Phone: 8(199)743-314242 [place] [address] 07-20-2023 14:41-0400 Diastolic blood pressure 79 mm[Hg] Dr. Tony Kay Work Phone: [facility] 07-20-2023 14:41-0400 Systolic blood pressure 124 mm[Hg] Dr. Tony Kay Work Phone: 0(835)309-065194 [place] [address] 07-20-2023 13:09-0400 Body mass index (BMI) [Ratio] 39.2 kg/m2 Dr. Tony Kay Work Phone: 3(424)067-750242 [place] [address] 07-20-2023 13:09-0400 Body temperature 97 [degF] Dr. Tony Kay Work Phone: 4(570)054-113494 [place] [address] 07-20-2023 13:09-0400 Body weight 110.[address] Tony Kay Work Phone: 4(275)218-871394 [place] [address] 07-20-2023 13:09-0400 Heart rate 82 /min Dr. Tony Kay Work Phone: 7(494)534-511142 [place] [address] 07-20-2023 13:09-0400 Respiratory rate 17 /min Dr. Tony Kay Work Phone: 9(345)003-623084 [address] 07-20-2023 13:09-0400 SaO2% (BldA) [Mass fraction] 95 % Dr. Tony Kay Work Phone: 0(028)135-254542 [place] [address] 05-30-2023 16:03-0400 Body height 167.[address] Tony Kay Work Phone: 2(264)176-376542 [place] [address] 05-30-2023 16:03-0400 Body mass index (BMI) [Ratio] 39.7 kg/m2 Dr. Tony Kay Work Phone: [facility] 05-30-2023 16:03-0400 Body temperature 98.1 [degF] Dr. Tony Kay Work Phone: 2(893)658-696784 [address] 05-30-2023 16:03-0400 Body weight 111.[address] Tony Kay Work Phone: 0(681)[phone] [place] [address] 05-30-2023 16:03-0400 Diastolic blood pressure 75 mm[Hg] Dr. Tony Kay Work Phone: [facility] 05-30-2023 16:03-0400 Heart rate 66 /min Dr. Tony Kay Work Phone: [facility] 05-30-2023 16:03-0400 Respiratory rate 16 /min Dr. Tony Kay Work Phone: [facility] 05-30-2023 16:03-0400 SaO2% (BldA) [Mass fraction] 97 % Dr. Tony Kay Work Phone: [facility] 05-30-2023 16:03-0400 Systolic blood pressure 121 mm[Hg] Dr. Tony Kay Work Phone: [facility] 05-29-2023 13:28-0400 Body mass index (BMI) [Ratio] 42.9 kg/m2 Dr. Tony Kay Work Phone: [facility] 05-29-2023 13:28-0400 Body temperature 97.5 [degF] Dr. Tony Kay Work Phone: [facility] 05-29-2023 13:28-0400 Body weight 111.[address] Tony Kay Work Phone: [facility] 05-29-2023 13:28-0400 Diastolic blood pressure 76 mm[Hg] Dr. Tony Kay Work Phone: [facility] 05-29-2023 13:28-0400 Heart rate 65 /min Dr. Tony Kay Work Phone: [facility] 05-29-2023 13:28-0400 Respiratory rate 16 /min Dr. Tony Kay Work Phone: [facility] 05-29-2023 13:28-0400 SaO2% (BldA) [Mass fraction] 93 % Dr. Tony Kay Work Phone: [facility] 05-29-2023 13:28-0400 Systolic blood pressure 116 mm[Hg] Dr. Tony Kay Work Phone: [facility] 05-24-2017 08:09-0400 BMI (Body Mass Index) 36.38 kg/m2 [facility] Work Phone: 05-24-2017 08:09-0400 Body Temperature 97.6 [degF] [facility] Work Phone: 05-24-2017 08:09-0400 Body Temperature 97.59 [degF] [facility] Work Phone: 05-24-2017 08:09-0400 BP Diastolic 84 mm[Hg] [facility] Work Phone: 05-24-2017 08:09-0400 BP Systolic 136 mm[Hg] [facility] Work Phone: 05-24-2017 08:09-0400 Height 167.64 cm [facility] Work Phone: 05-24-2017 08:09-0400 Pulse (Heart Rate) 64 /min [facility] Work Phone: 05-24-2017 08:09-0400 Respiratory Rate 18 /min [facility] Work Phone: 05-24-2017 08:09-0400 Weight 102.24 kg [facility] Work Phone: Encounters Encounter Date Encounter Type Care Provider Facility Start: 03-30-2025 ambulatory Tony Kay Facility:[facility] Start: 03-13-[address] Tony Kay MD -Laboratory Work Phone: Start: 03-10-2025 End: 03-10-[address] Tony Kay MD Work Phone: [facility] Work Phone: Start: 03-10-2025 End: 03-10-[address] Tony Kay MD -Laboratory [facility] Start: 03-10-2025 End: 03-10-2025 ambulatory Tony Kay Facility:[facility] Start: 03-06-2025 End: 03-06-2025 ambulatory MILTON VILLANUEVA Facility:[facility] Start: 02-26-2025 End: 02-26-[address] Tony Kay MD Work Phone: [facility] Work Phone: Start: 02-26-2025 End: 02-26-[address] Tony Kay MD -Laboratory Work Phone: Start: 02-26-2025 End: 02-26-2025 ambulatory [facility] Facility:[facility] Start: 02-23-2025 End: 02-23-[address] Tony Kay MD Work Phone: [facility] Work Phone: Start: 02-23-2025 End: 02-23-[address] Tony Kay MD -Laboratory [facility] Start: 02-23-2025 End: 02-23-2025 ambulatory [facility] Facility:[facility] Start: 02-17-2025 End: 02-17-2025 Patient encounter procedure Milton Villanueva MD Work Phone: Endocrinology Comment on above: Hypertension, unspec ified type (Primary Dx) Start: 02-17-2025 End: 02-17-2025 ambulatory MILTONJorge VILLANUEVA Facility:[facility] Start: 02-12-2025 End: 02-12-[address] Tony Kay MD Work Phone: [facility] Work Phone: Start: 02-12-2025 End: 02-12-[address] Tony Kay MD -Laboratory, [facility] Start: 02-12-2025 End: 02-12-2025 ambulatory Tony Cheney Facility:[facility] Start: 02-07-2025 End: 02-07-[address] Tony Kay MD -Laboratory Work Phone: Start: 02-07-[address] Tony Kay MD -Laboratory Work Phone: Start: 02-07-2025 End: 02-07-[address] Tony Kay MD Work Phone: [facility] Work Phone: Start: 02-04-2025 End: 02-04-[address] Tony Kay MD -Cat Scan, [facility] Work Phone: Start: 02-04-2025 End: 02-04-2025 ambulatory Tony Kay Facility:[facility] Start: 01-10-2025 End: 01-10-[address] Tony Kay MD Work Phone: [facility] Work Phone: Start: 01-10-2025 End: 01-10-[address] Tony Kay MD -Ultrasound, [facility] Work Phone: Start: 01-10-2025 End: 01-10-2025 ambulatory Tony Kay Facility:[facility] Start: 01-06-2025 End: 01-06-2025 ambulatory DREW RHODES Facility:[facility] Start: 01-06-2025 End: 01-06-2025 Office outpatient new 60 minutes Drew Rhodes DO Work Phone: [facility] Comment on above: Elevated serum creat inine (Primary Dx) Start: 01-03-2025 End: 01-03-[address] Tony Kay MD -Laboratory Work Phone: Start: 01-03-2025 End: 01-03-[address] Tony Kay MD Work Phone: [facility] Work Phone: Start: 01-02-2025 End: 01-02-2025 ambulatory MILTON VILLANUEVA Facility:[facility] Start: 12-04-2024 End: 12-04-[address] Tony Kay MD Work Phone: [facility] Work Phone: Start: 12-04-2024 End: 12-04-[address] Tony Kay MD -Laboratory, [facility] Start: 12-04-2024 End: 12-04-2024 ambulatory Tony Kay Facility:[facility] Start: 12-01-2024 End: 12-01-[address] Tony Kay MD Work Phone: [facility] Work Phone: Start: 12-01-2024 End: 12-01-[address] Tony Kay MD -Laboratory, [facility] Start: 12-01-2024 End: 12-01-2024 ambulatory Tony Kay Facility:[facility] Start: 11-28-2024 End: 11-28-2024 ambulatory MILTON VILLANUEVA Facility:[facility] Start: 11-28-2024 End: 11-28-2024 Patient encounter procedure [...] Start: 10-30-2024 End: 10-30-2024 ambulatory KIM ROSE Facility:[facility] Start: 10-30-2024 End: 10-30-2024 Patient encounter procedure Kim Rose OD Work Phone: Ophthalmology Comment on above: Blurred vision, bila teral (Primary Dx); Monocular exotropia with other noncomitancies, left eye; Hypertropia of left eye; Dry eye syndrome of both eyes Start: 10-16-2024 End: 10-16-[address] Tony Kay MD -[facility] Start: 10-16-2024 End: 10-16-2024 ambulatory Tony Kay Facility:[facility] Start: 08-20-2024 End: 08-20-[address] Tony Kay MD -[facility] Start: 08-20-2024 End: 08-20-2024 ambulatory Tony Kay Facility:[facility] Start: 08-07-2024 End: 08-07-2024 ambulatory Tony Kay Facility:[facility] Start: 08-06-2024 End: 08-06-2024 ambulatory Tony Kay Facility:[facility] Start: 07-02-2024 End: 07-02-2024 ambulatory Tony Kay Facility:[facility] Start: 06-16-2024 ambulatory Ben Emmanuel Facility :[facility] Start: 06-16-2024 End: 06-16-2024 ambulatory Tony Kay Facility:[facility] Start: 06-12-2024 End: 06-12-2024 ambulatory Tony Kay Facility:[facility] Start: 05-30-2024 End: 05-30-2024 ambulatory Tony Kay Facility:[facility] Start: 01-22-2024 End: 01-22-[address] Tony Kay Work Phone: [facility] Work Phone: Start: 01-22-2024 End: 01-22-[address] Tony Kay Work Phone: [facility] Start: 12-28-2023 End: 12-28-[address] Tony Kay Work Phone: [facility] Work Phone: Start: 12-28-2023 End: 12-28-[address] Tony Kay Work Phone: [facility] Start: 12-14-2023 End: 12-14-[address] Tony Kay Work Phone: [facility] Work Phone: Start: 12-14-2023 End: 12-14-[address] Tony Kay Work Phone: [facility] Start: 11-27-2023 End: 11-27-[address] Tony Kay Work Phone: [facility] Work Phone: Start: 11-27-2023 End: 11-27-[address] Tony Kay Work Phone: [facility] Start: 11-26-2023 End: 11-26-[address] Tony Kay Work Phone: [facility] Work Phone: Start: 11-07-2023 End: 11-07-[address] Tony Kay Work Phone: [facility] Work Phone: Start: 11-07-2023 End: 11-07-[address] Tony Kay Work Phone: [facility] Work Phone: Start: 09-24-2023 End: 10-07-[address] Tony Kay Work Phone: [facility] Work Phone: Start: 09-13-2023 End: 09-13-[address] Tony Kay Work Phone: [facility] Work Phone: Start: 09-13-2023 End: 09-13-[address] Tony Kay Work Phone: [facility] Work Phone: Start: 08-28-2023 End: 08-28-[address] Tony Kay Work Phone: [facility] Work Phone: Start: 08-14-2023 End: 08-14-[address] Tony Kay Work Phone: [facility] Work Phone: Start: 08-14-2023 End: 08-14-[address] Tony Kay Work Phone: [facility] Start: 07-31-2023 End: 07-31-[address] Tony Kay Work Phone: [facility] Work Phone: Start: 07-20-2023 Non-patient / Non-visit Dr. Diego Kay Work Phone: [facility] Start: 07-20-2023 End: 07-20-2023 Admission to same day surgery center Dr. Tony Kay Work Phone: [facility] Start: 06-27-2023 End: 06-27-[address] Tony Kay Work Phone: [facility] Work Phone: Start: 06-27-2023 End: 06-27-[address] Tony Kay Work Phone: [facility] Work Phone: Start: 06-15-2023 End: 06-15-[address] Tony Kay Work Phone: [facility] Work Phone: Start: 06-15-2023 End: 06-15-[address] Tony Kay Work Phone: [facility] Start: 06-01-2023 End: 06-01-[address] Tony Kay Work Phone: [facility] Work Phone: Start: 05-30-2023 End: 05-30-[address] Tony Kay Work Phone: [facility] Work Phone: Start: 05-29-2023 End: 05-29-[address] Tony Kay Work Phone: [facility] Work Phone: Start: 05-21-2023 End: 05-21-[address] Tony Kay Work Phone: [facility] Work Phone: Start: 05-21-2023 End: 05-21-[address] Tony Kay Work Phone: [facility] Start: 05-10-2023 End: 05-10-[address] Tony Kay Work Phone: [facility] Work Phone: Start: 05-10-2023 End: 05-10-[address] Tony Kay Work Phone: [facility] Start: 04-30-2023 End: 04-30-[address] Tony Kay Work Phone: [facility] Start: 04-25-2023 End: 04-25-[address] Tony Kay Work Phone: [facility] Start: 04-12-2023 End: 04-12-[address] Tony Kay Work Phone: [facility] Work Phone: Start: 04-12-2023 End: 04-12-[address] Tony Kay Work Phone: [facility] Start: 04-06-2023 End: 04-06-[address] Tony Kay Work Phone: [facility] Start: 03-30-2023 End: 03-30-[address] Tony Kay Work Phone: [facility] Start: 03-23-2023 End: 03-23-[address] Tony Kay Work Phone: [facility] Work Phone: Start: 03-23-2023 End: 03-23-[address] Tony Kay Work Phone: [facility] Start: 03-15-2023 Non-patient / Non-visit Dr. Diego Kay Work Phone: [facility] Start: 03-15-2023 End: 03-15-[address] Tony Kay [facility] Start: 03-12-2023 End: 03-12-[address] Tony Kay Work Phone: [facility] Start: 03-06-2023 End: 03-06-[address] Tony Kay Work Phone: [facility] Work Phone: Start: 03-06-2023 End: 03-06-[address] Tony Kay Work Phone: [facility] Start: 03-01-2023 Non-patient / Non-visit Dr. Diego Kay Work Phone: [facility] Start: 03-01-2023 End: 03-01-[address] Tony Kay Work Phone: [facility] Work Phone: Start: 03-01-2023 End: 03-01-[address] Tony Kay Work Phone: [facility] Start: 02-23-2023 End: 02-23-[address] Tony Kay Work Phone: [facility] Work Phone: Start: 02-23-2023 End: 02-23-[address] Tony Kay [facility] Start: 02-07-2023 End: 02-07-2023 ambulatory [facility] Work Phone: Start: 02-07-2023 End: 02-07-2023 Patient encounter procedure [facility] Start: 11-10-2022 End: 11-10-2022 Patient encounter [...] chest, PA and lateral views Dr. Tony Kay MD Work Phone: Start: 03-10-2025 D-dimer assay, quantitative Dr. Tony ceballos MD Work Phone: Comment on above: NORMAL D-Dimer level (<0.50) indicates n o DVT or PE. Start: 02-26-[address] Tony Kay MD Work Phone: Comment on above: Test Ordered: [id number] Dexamethasone, Seru mDexamethasone, Serum 452 ng/dL ES Reference Range: .This test was developed and its performance characteristicsdetermined by [facility]. It has not been cleared or approvedby the Food and Drug Administration.Reference Range:Adults baseline: <308:00 AM following 1 mg dexamethasone previous evenin - 2958:00 AM following 8 mg dexamethasone(4 x 2 mg doses) previous day: 1600 - 2850Performed at: [facility] [address] [id number] Director: Evan Savage MD, Phone: [phone] at: [facility] [employer] [address] [id number] Director: Hesham Christopher PhD, Phone: [phone] Start: 02-04-2025 Computed tomography of abdomen and [...] RSV Vaccine (1 - 1-dose 75+ series) [facility] Start: 02-17-2026 BP Controlled (<130/80) BP Controlle d (<130/80) [facility] Start: 10-30-2025 End: 10-30-2025 Patient encounter procedure 10/30/2025 2:30 PM EST Office Visit [facility] [address] [place] [address] Kim Rose, OD [address] [place] [address] annual Ophthalmology Comment on above: annual Start: 06-08-2025 Influenza vaccination Influenz a Vaccine (Season Ended) [facility] Start: 03-10-2025 End: 03-10-2025 Procedure [facility] Start: 03-10-2025 Measurement of C-reactive protein using high sensitivity technique [facility] Start: 02-26-2025 Procedure [facility] Start: 02-17-2025 End: 05-19-2025 ALDOSTERONE/DIRECT RENIN RATIO ALDOSTERONE/DIRECT RENIN RATIO Lab Routine Hypertension, unspecified type Expected: 02/17/2025, Expires: 05/19/2025 [facility] Comment on above: Expected: 02/17/2025 , Expires: 05/19/2025 Start: 02-17-2025 End: 05-19-2025 Potassium [Moles/volume] in Serum or Plasma POTASSIUM Lab Routine Hypertension, unspecified type Expected: 02/17/2025, Expires: 05/19/2025 [facility] Work Phone: Comment on above: Expected: 02/17/2025 , Expires: 05/19/2025 Start: 01-06-2025 End: 01-06-2025 Patient encounter procedure 01/06/2025 11:00 AM EDT Office Visit [facility] [address] [place] [address] [place] [address] [place] [address] CKD stage 3a, GFR 45-59 ml/min (HCC) [N18.31] [facility] Comment on above: CKD stage 3a, GFR 45 -59 ml/min (HCC) [N18.31] Start: 12-09-2024 Covid-19 Vaccine ( season) Covid-19 Vaccine () [facility] Start: 11-28-2024 End: 02-27-2025 ALDOSTERONE/DIRECT RENIN RATIO ALDOSTERONE/DIRECT RENIN RATIO Lab Routine Hypertension, unspecified type Expected: 11/28/2024, Expires: 02/27/2025 [facility] Work Phone: Comment on above: Expected: 11/28/2024 , Expires: 02/27/2025 Start: 11-28-2024 End: 02-27-2025 Corticotropin [Mass/volume] in Plasma ACTH BLD Lab Routine Low serum cortisol level Expected: 11/28/2024, Expires: 02/27/2025 [facility] Comment on above: Expected: 11/28/2024 , Expires: 02/27/2025 Start: 11-28-2024 End: 02-27-2025 Cortisol [Mass/volume] in Serum or Plasma CORTISOL, SERUM Lab Routine Low serum cortisol level Expected: 11/28/2024, Expires: 02/27/2025 [facility] Comment on above: Expected: 11/28/2024 , Expires: 02/27/2025 Start: 11-28-2024 End: 02-27-2025 Potassium [Moles/volume] in Serum or Plasma POTASSIUM Lab Routine Hypertension, unspecified type Expected: 11/28/2024, Expires: 02/27/2025 [facility] Comment on above: Expected: 11/28/2024 , Expires: 02/27/2025 Start: 11-28-2024 End: 11-28-2024 Patient encounter procedure 11/28/2024 1:40 PM EST Office Visit Endocrinology [address] [place] [address] Milton Villanueva MD [address] [place], [place] [id number] ALDOSTERONISM Endocrinology Comment on above: ALDOSTERONISM Start: 10-08-2024 Advance Directive Discussion Advance Directive Discussion [facility] Start: 06-08-2024 Influenza vaccination Influenza Vacc ine (#1) [facility] Start: 07-20-2023 Patient discharge [facility] Start: 07-20-2023 Anes integ musc & nr v head neck&posterior trunk ANESTH HEAD/NECK/PTRUNK [facility] Start: 07-20-2023 Exc b9 les mrgn xcp sk tg f/e/e/n/l/m 1.1-2.0cm EXC FACE-MM B9+ONEAL 1.1-2 CM [facility] Start: 10-08-2022 ADVANCE DIRECTIVE DISCUSSION ADVANCE DIRECTIVE DISCUSSION [facility] Start: 10-08-2022 [facility] Start: 06-08-2022 Influenza vaccination INFLUENZA (#1) [facility] Start: 10-08-2021 ADVANCE DIRECTIVE DISCUSSION ADVANCE DIRECTIVE DISCUSSION [facility] Start: 10-08-2021 DEPRESSION ASSESSMENT DEPRESSION ASS ESSMENT [facility] Start: 05-01-2021 PROSTATE CANCER SCREENING DISCUSSION PROSTATE CANCER SCREENING DISCUSSION [facility] Start: 05-01-2021 Prostate specific antigen measurement Prostate Cancer Screening Discussion [facility] Start: 12-30-2020 PNEUMOCOCCAL: 65+ (1 - PCV) PNEUMOCOCCAL: 65+ (1 - PCV) [facility] Start: 05-01-2019 DIABETES SCREEN DIABETES SCREEN [facility] Start: 05-01-2019 Diabetes Screening Diabetes Screenin g [facility] Start: 05-28-2017 End: 05-28-2017 Appointment Appointment [facility] Work Phone: Start: 05-24-2017 End: 05-28-2017 Diagnostic colonoscopy Colonoscopy [facility] [employer] Work Phone: Start: 08-09-2016 Urine microalbumin profile DTaP,Tdap,Td Vaccine (1 - Tdap) [facility] Start: 2015 RSV Vaccine (1 - Ris k 60-74 years 1-dose series) RSV Vaccine (1 - Risk 60-74 years 1-dose series) [facility] Start: 11-08-2012 Colonoscopy COLONOSCOPY [facility] Start: 11-08-2012 COLORECTAL CANCER SCREENING COLORECTAL CANCER SCREENING [facility] Start: 11-08-2012 Screening for malign ant neoplasm of colon [facility] Start: 12-30-2005 Pneumococcal Vaccine : 50+ (1 of 1 - PCV) Pneumococcal Vaccine: 50+ (1 of 1 - PCV) [facility] Start: 12-30-2005 SHINGRIX VACCINE (1 of 2) SHINGRIX VACCINE (1 of 2) [facility] Start: 12-30-2000 COLOGUARD (FIT-DNA) COLOGUARD (FIT-D NA) [facility] Start: 12-30-[address] COLONOGRAPHY [facility] Start: 12-30-2000 FECAL OCCULT BLOOD FECAL OCCULT BLOO D [facility] Start: 12-30-2000 Screening for malign ant neoplasm of colon [facility] Start: 12-30-2000 [facility] Start: 12-30-1990 Lipid panel Lipid Screening [facility] Start: 12-30-1990 LIPID SCREEN LIPID SCREEN [facility] Start: 12-30-1974 Urine microalbumin profile DTAP,TDAP,TD (1 - Tdap) [facility] Start: 12-30-1973 Annual PCP Team Veneer Supervisor julianne Disease Visit Annual PCP Team Chronic Disease Visit [facility] Start: 12-30-1973 Anxiety Screening Anxiety Screening [facility] Start: 12-30-1973 Depression Screening Depression Scre ening [facility] Start: 12-30-1973 HEPATITIS C SCREENING HEPATITIS C [facility] Start: 12-30-1973 Hepatitis C screening Hepatitis C [facility] referral [facility] Work Phone: [facility] Immunizations Immunization Date Immunization Notes Care Provider Fa cility 01-11-2021 Covid (Pfizer) [facility] 12-21-2020 Covid (Pfizer) [facility] Payers Date Payer Category Payer Self-pay [id number] 2020 Medicare [id number] 2020 Private Health Insurance MMO MED ICARE SUPPLEMENT [id number] 2020 Medicare [id number] 2016 Unknown [employer] EXCHANGE PLAN [id number] 2014 Unknown [id number] 2013 Unknown [id number] Unknown [id number] Unknown [id number] 2.16.840.1.744176.3.579.2. 462 Unknown [id number] 2.16.840.1.932377.3.579.2. 462 Unknown [id number] 2.16.840.1.604906.3.579.2. 462 Unknown [id number] 2.16.840.1.999574.3.579.2. 462 Unknown [id number] 2.16.840.1.858688.3.579.2. 462 Unknown [id number] 2.16.840.1.198540.3.579.2. 462 Unknown [id number] 2.16.840.1.620021.3.579.2. 462 Unknown [id number] 2.16.840.1.699403.3.579.2. 462 Unknown [id number] 2.16.840.1.991777.3.579.2. 462 Unknown [id number] 2.16.840.1.497522.3.579.2. 462 Unknown [id number] 2.16.840.1.275387.3.579.2. 462 Unknown [id number] 2.16.840.1.238112.3.579.2. 462 Unknown [id number] 2.16.840.1.427019.3.579.2. 462 Unknown [id number] 2.16.840.1.436600.3.579.2. 462 Unknown [id number] 2.16.840.1.044600.3.579.2. 462 Unknown [id number] 2.16.840.1.873414.3.579.2. 462 Unknown [id number] 2.16.840.1.377257.3.579.2. 462 Unknown [id number] 2..840.1.585313.3.579.2. 462 Unknown [id number] 2.840.1.626517.3.579.2. 462 Unknown [id number] [id number]. 462 Social History Date Type Detail Facility Start: 11-01-2011 End: 06-11-2024 Tobacco smoking status NHIS Never smoked tobacco [facility] Start: 11-01-2011 Tobacco use and exposure Smokeless tobacco non-user [facility] Start: 09-12-2022 End: 02-17-2025 Alcohol intake Current non-drinker of alcohol (finding) [facility] Start: 1955 Sex Assigned At Male [facility] Start: 01-28-2018 End: 11-26-2023 Tobacco smoking status MTIS Unknown if ever smoked [facility] Start: 10-30-2024 End: 11-28-2024 History of Social function [facility] Start: 10-30-2024 End: 11-28-2024 Tobacco use panel [facility] National Score (1-10 0), lower number is lower risk 35 [facility] Start: 09-06-2022 Gender identity Identifies as male gender (finding) [facility] Start: 09-06-2022 Sexual orientation Heterosexual (fin ding) [facility] Start: 12-12-2024 End: 01-13-2025 Sex Male (finding) [facility] Medical Equipment Procedure Code Equipment Code Equipment Origin al Text Equipment Identifier Dates [employer] [id number] - [id number] Start: 05-24-2015 Pin Crss Sd Scr 1.5x4mm - [id number] Start: 05-24-2015 Goals Date Patient Goal Desired Activity /State Functional Status Date Assessment Result Facility 05-26-2015 Are you deaf, or do you have serious difficulty hearing No 05/26/2015 12:23 PM Mirlande Nolen APRN.NURSES DIRECTOR No [facility] Work Phone: 05-26-2015 Are you blind, or do you have serious difficulty seeing, even when wearing glasses No 05/26/2015 12:23 PM EDT Mirlande Torres APRN.NURSES DIRECTOR No [facility] 05-26-2015 Do you have serious difficulty walking or climbing stairs No 05/26/2015 12:23 PM EDT Mirlande Torres APRN.NURSES DIRECTOR No [facility] 05-26-2015 Do you have difficul ty dressing or bathing No 05/26/2015 12:23 PM EDT Mirlande Torres APRN.NURSES DIRECTOR No [facility] 05-26-2015 Because of a physica l, mental, or emotional condition, do you have difficulty doing errands alone such as visiting a physician's office or shopping No 05/26/2015 12:23 PM EDT Mirlande Torres APRN.NURSES DIRECTOR No [facility] Mental Status Date Assessment Result Facility 07-20-2023 Cognitive function Voice/Name [facility] Work Phone: 05-26-2015 Because of a physica l, mental, or emotional condition, do you have serious difficulty concentrating, remembering, or making decisions No 05/26/2015 12:23 PM EDT Mirlande Torres APRN.NURSES DIRECTOR No [facility] Clinical Notes 09-12-2022 to 03-10-2025 Patient InstructionsMilton Villanueva MD - 02/17/2025 4:27 PM EDTPatient Drew Smith DO - 01/06/2025 11:00 AM EDTPatient Gabino Carney MD - 11/01/2022 2:18 PM EST Note Date & Type Note Facility 03-10-2025 Radiology Diagnostic study note [facility] Imaging Services [address] [place] [address] Chest PA and Lateral MR#: [id number] Acct: [id number] Name: BALTAZAR BAY Rep #: [id number] : 1955 M 69 From: Jay Barnes MD PCP: Dr. Tony Kay MD Status: REG CLI Study:Chest PA and Lateral Date of Exam: 03/10/25 Exam# [id number] Ordering Dr: Diego Kay MD PROCEDURE: CHEST [...] evidence of acute cardiopulmonary pathology. Reading Location: [id number] CC: Dr. Tony Kay MD ~ Sap Portal Developer: Signed [facility] Work Phone: 02-17-2025 Instructions Milton Villanueva MD - 02/17/2025 4:39 PM EDT Please repeat labs when potassium is repleted documented in this encounter [facility] 02-17-2025 Note HNO ID: [id number] Author: MILTON VILLANUEVA MD Service: ? Author [...] on fluid retention. He follows [facility] abstracts, [facility] and [facility] articles, and reports he thought the fluid [...] CT abdomen and pelvis with contrast at [facility] on 06/27/2023 shows unremarkable adrenal glands (scanned [...] (FLORASTOR ORAL) Take by mouth once daily. lizrb-pi-2-scm-emi-yvmdcwo-ast 318-213-65-64 mg cap zinc sulfate (ZINC-220) 220 mg [...] not taking: Reported (more content not included)... [facility] 02-17-2025 History of Present illness Narrative [...] on fluid retention. He follows [facility] abstracts, [facility] and [facility] articles, and reports he thought the fluid [...] CT abdomen and pelvis with contrast at [facility] on 06/27/2023 shows unremarkable adrenal glands (scanned [...] (FLORASTOR ORAL) Take by mouth once daily. lkmmj-py-5-ryi-lph-zwioawz-ast 123-255-33-64 mg cap zinc sulfate (ZINC-220) 220 mg [...] (Patient not taking: Reported on 10/30/2024) COENZYME X92-V-QVDGNLNVO ORAL Take 600 mg by mouth twice [...] asks about kidney cysts, reports that his anthropological linguist told him that the kidneys are functioning [...] Moderate Milton Villanueva MD Endocrinology Associate Staff [facility] Endocrinology and Metabolism [place] [phone] documented in this encounter [facility] 01-11-2025 Radiology Diagnostic study note [facility] Imaging Services [address] [place], [place] [id number] Abdomen Limited MR#: [id number] Acct: [id number] Name: BALTAZAR BAY Rep #: [id number] : 1955 M 69 From: And radhika Koch DO PCP: Dr. oTny Kay MD Status: REG CLI Study:Abdomen Limited Date of Exam: 03/01 Exam# [id number] Ordering Dr: Diego Kay MD PROCEDURE: Abdominal [...] without and with intravenous contrast. [facility]: Dr. Tony Kay MD ~ Sap Portal Developer: Signed [facility] 01-06-2025 Instructions Drew Rhodes DO - 01/06/2025 [...] disease, kidney disease documented in this encounter [facility] 01-06-2025 History of Present illness Narrative NEPHROLOGY [...] SULFATE A ORAL 1,500 mg, DAILY COENZYME A31-F-ZSDAQPAFT ORAL 600 mg, 2 TIMES DAILY CPAP AT BEDTIME cyanocobalamin (vitamin B-12) 5,000 mcg Doxepin 6 mg tab ferrous sulfate (IRON) 325 mg (65 mg iron) tablet furosemide (LASIX) 40 mg, DAILY Gabapentin 300 mg ORAL Tab 1 tablet, DAILY GLUCOSAMINE HCL ORAL 1,500 mg, DAILY okzfd-hs-4-tac-pmt-zikwjpl-ast 330-140-61-64 mg cap Lactobacillus acidophilus (PROBIOTIC ORAL) DAILY [...] Function, Amylase, & Lipase ABGs SIGNATURE: Drew Rhodes DO DATE: January 05, 2025 TIME: 10:10 [...] immunosuppression, hospitalization,de-escalate care) documented in this encounter [facility] 01-06-2025 Note HNO ID: [id number] Author: DREW RHODES DO Service: ? Author [...] SULFATE A ORAL 1,500 mg, DAILY COENZYME [id number]-V-TVCJYDIBU ORAL 600 mg, 2 TIMES DAILY CPAP AT BEDTIME cyanocobalamin (vitamin B-12) 5,000 mcg Doxepin 6 mg tab ferrous sulfate (IRON) 325 mg (65 mg iron) tablet furosemide (LASIX) 40 mg, DAILY Gabapentin 300 mg ORAL Tab 1 tablet, DAILY GLUCOSAMINE HCL ORAL 1,500 mg, DAILY orijz-dy-2-wrj-maz-bbdrqdg-ast 219-860-91-64 mg cap Lactobacillus acidophilus (PROBIOTIC ORAL) DAILY [...] DO DATE: Manuel (more content not included)... [facility] 11-28-2024 Instructions Milton Villanueva MD - 11/28/2024 2:37 PM EST Please schedule an appointment with Nephrology documented in this encounter [facility] 11-28-2024 Note HNO ID: [id number] Author: MILTON IVLLANUEVA MD Service: ? Author Type: Physician Type: [...] on fluid retention. He follows [facility] abstracts, [facility] and [facility] articles, and reports he thought the fluid [...] CT abdomen and pelvis with contrast at [facility] on 06/27/2023 shows unremarkable adrenal glands (scanned [...] (FLORASTOR ORAL) Take by mouth once daily. tpzxt-hq-8-ddj-qks-dcpnhlt-ast 775-386-67-64 mg cap zinc sulfate (ZINC-220) 220 mg [...] mg by mo (more content not included)... [facility] 11-28-2024 History of Present illness Narrative [...] on fluid retention. He follows [facility] abstracts, [facility] and [facility] articles, and reports he thought the fluid [...] CT abdomen and pelvis with contrast at [facility] on 06/27/2023 shows unremarkable adrenal glands (scanned [...] (FLORASTOR ORAL) Take by mouth once daily. ryafw-xk-8-qlr-gli-dgnssth-ast 879-776-74-64 mg cap zinc sulfate (ZINC-220) 220 mg [...] (Patient not taking: Reported on 10/30/2024) COENZYME K66-R-VSTETLGAY ORAL Take 600 mg by mouth twice [...] which included preparing to see the patient, yakv-bj-nenl patient care, completing clinical documentation, obtaining and/or reviewing separately obtained history, performing a medically appropriate examination, counseling and educating the patient/family/caregiver, ordering medications, tests, or procedures, independently interpreting results (not separately reported), and communicating results to the patient/family/caregiver. SIGNATURE: Milton Villanueva MD DATE of SERVICE: November 28, 2024 TIME of SERVICE: 2:14 PM documented in this encounter [facility] 10-30-2024 Note HNO ID: [id number] Author: KIM ROSE OD Service: ? Author Type: PROJECT DEVELOPMENT LEADER Type: Progress Notes Filed: 10/30/2024 16:38 Note [...] Rose, OD October 30, 2024 4:35 PM [facility] 10-30-2024 History of Present illness Narrative [...] 2024 4:35 PM documented in this encounter [facility] 06-16-2024 Note [facility] Medical Records Department [facility] [place] [address] History Physical Exam 06/16/24 0814 MR#: [id number] Acct: [id number] Name: BALTAZAR BAY Rep #: [id number] : 1955 68 From: Ben Emmanuel DO PCP: Dr. Tony Kay MD Status:[facility] Location: [place] [address] History and Physical Date of Admission: 06/16/24 [...] Appearance: average body habitus and well nourished [facility] Head: normal to inspection Ears: hearing grossly [...] or vomiting ju (more content not included)... [facility] 11-10-2022 History of Present illness Narrative (H26.491) [...] 2022 1:05 PM documented in this encounter [facility] 11-01-2022 History of Present illness Narrative Assessment [...] Sung Carney MD documented in this encounter [facility] 11-01-2022 Instructions Sung Carney MD - 11/01/2022 2:09 PM EST Images from the original note were not included. documented in this encounter [facility] 10-31-2022 History of Present illness Narrative 1. [...] 2022 4:23 PM documented in this encounter [facility] 09-12-2022 History of Present illness Narrative Assessment [...] 2022 3:32 PM documented in this encounter [facility] Evaluation note Diagnosis Blurred vision, bilateral- Primary Other specified visual disturbances Pseudophakia of both eyes Lens replaced by other means 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, bilateral Dry eye syndrome of both eyes [facility] 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- Primary After-cataract, obscuring vision Blurred vision, bilateral Other specified visual disturbances 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, 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, left eye [facility] 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, right- Primary [facility] Diagnosis 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, right- Primary 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 After-cataract, obscuring vision Blurred vision, bilateral Other specified visual disturbances 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, left eye Dry eye syndrome of both eyes [facility] noteNo assessment information availableWThe [facility] Work Phone: Evaluation note* Diagnosis Onset Date Resolution Status Keloid scar acute Neoplasm of uncertain behavior of skin acute Keloid scar acute Diarrhea acute Diverticulitis chronic [facility] Work Phone: Evaluation note* Diagnosis Onset Date Resolution Status Keloid scar acute Neoplasm of uncertain behavior of skin acute Keloid scar acute Diarrhea acute Diverticulitis chronic Neoplasm of uncertain behavior of skin acute Epidermal inclusion cyst acu te [facility] Work Phone: Evaluation note* Diagnosis Onset Date Resolution Status Keloid scar acute Neoplasm of uncertain behavior of skin acute Keloid scar acute Diarrhea acute Diverticulitis chronic Neoplasm of uncertain behavior of skin acute Epidermal inclusion cyst acu te Epidermal inclusion cyst acu te [facility] Work Phone: Evaluation note* Diagnosis Onset Date Resolution Status Neoplasm of uncertain behavior of skin acute Epidermal inclusion cyst acu te Epidermal inclusion cyst acu te [facility] Work Phone: Evaluation note* Diagnosis Onset Date Resolution Status Epidermal inclusion cyst acu te Diarrhea acute Diverticulitis chronic [facility] Work Phone: Evaluation note* Diagnosis Onset Date Resolution Status Diarrhea acute Diverticulitis [facility] Work Phone: Evaluation note* Diagnosis Blurred vision, bilateral- Primary Other specified visual disturbances Monocular exotropia with other noncomitancies, left eye Hypertropia of left eye Dry eye syndrome of both eyes documented in this encounter [facility] note* Diagnosis Low serum cortisol level- Primary Glucocorticoid deficiency CKD stage 3a, GFR 45-59 ml/min ([facility]) Hypertension, unspecified type documented in this encounter [facility] note* Diagnosis Elevated serum creatinine- Primary Other nonspecific findings on examination of blood documented in this encounter [facility] note* Diagnosis Hypertension, unspecified type- Primary documented in this encounter [facility] for referral (narrative)No reason for referral information availableWThe [facility] System Work Phone: Advance Directives No Advanced Directives Records FoundDocuments on File Type Date Recorded Patient Manager Functional Expl anation Advance Directive(s) 05/27/2015 5:37 PM Advance Directive Response Recorded Date/ Time Living Will No January 28, 2018 4:14am Power of Supplier Manager No January 28 4:14am Advance Directive Response Recorded Date/ Time Living Will No January 28, 2018 3:14am Power of Supplier Manager No January 28 3:14am Documents on File Type Date Recorded Patient Manager Functional Expl anation Advance Directive(s) 05/27/2015 5:37 PM [...] or prosecute any alcohol or drug abuse patient.[facility] the event this information is protected by the Federal Confidentiality of Alcohol and Drug Abuse Patient Records regulations: The Federal rules restrict any use of the information to criminally investigate or prosecute any alcohol or drug abuse patient.[facility] the event this information is protected by the Federal Confidentiality of Alcohol and Drug Abuse Patient Records regulations: The Federal rules restrict any use of the information to criminally investigate or prosecute any alcohol or drug abuse patient.[facility] the event this information is protected by the Federal Confidentiality of Alcohol and Drug Abuse Patient Records regulations: The Federal rules restrict any use of the information to criminally investigate or prosecute any alcohol or drug abuse patient.[facility] the event this information is protected by the Federal Confidentiality of Alcohol and Drug Abuse Patient Records regulations: The Federal rules restrict any use of the information to criminally investigate or prosecute any alcohol or drug abuse patient.[facility] the event this information is protected by the Federal Confidentiality of Alcohol and Drug Abuse Patient Records regulations: The Federal rules restrict any use of the information to criminally investigate or prosecute any alcohol or drug abuse patient.[facility] Hospital[facility] the event this information is protected by the Federal Confidentiality of Alcohol and Drug Abuse Patient Records regulations: The Federal rules restrict any use of the information to criminally investigate or prosecute any alcohol or drug abuse patient.[facility] Hospital[facility] the event this information is protected by the Federal Confidentiality of Alcohol and Drug Abuse Patient Records regulations: The Federal rules restrict any use of the information to criminally investigate or prosecute any alcohol or drug abuse patient.[facility] the event this information is protected by the Federal Confidentiality of Alcohol and Drug Abuse Patient Records regulations: The Federal rules restrict any use of the information to criminally investigate or prosecute any alcohol or drug abuse patient.[facility] Reason for Visit (unrecogniz ed section [...] Diagnoses CKD stage 3a, GFR 45-59 ml/min ([facility]) Procedures CONSULT TO NEPHROLOGY OFFICE/OUTPATIENT NEW HIGH MDM 60 MINUTES Milton Villanueva MD [address] [place] [address] Phone: tel: fax: Referral ID Status Reason Start Date Expiration Date V isits Requested Visits Authorized [id number] Closed PCP Requested Referral 11/28/2024 11/28/2025 1 1 Care Teams (unrecognized sec tion and content) 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 Toyn Kay MD Family Provider Active Dr. Tony [...] Inactive Member Role Status Dates Mary Bains GUSSET MAKER, GUSSET MAKER-C Attending Provider Active Team Status: Inactive Member [...] Dr. 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 Tony aKy MD Attending Provider Active St art: February [...] section and content) DATE CREATED AUTHOR 03/11/2025 [facility] DATE CREATED AUTHOR AUTHOR'S CRISTAL CUEVAS 03/31/2025 [facility] FOR RECORDS PERTAINING TO PATIENTS WHO ARE [...] BE BASED ON THE PRIMARY CLINICAL RECORDS. [employer]zzai - how to [place] [facility]. provides no warranty or guarantee of the accuracy or completeness of information in this document.
[2025-04-01 07:08] LABS: Lyme Scn Total Ab w/Rflx Negative (Negative)
== END | disposition home or self-care (01) ==
LOC: MFPLAB 10:39
PROVIDERS: PCP Family Medicine; Referring Provider Family Medicine; Visit Provider Family Medicine
DX: M79.10 Myalgia, unspecified site (principal)
CPT/HCPCS: 36415; 86618

== ENCOUNTER 2025-04-06 07:46 | Outpatient (RCR) | payer MEDICARE, OTHER, SELFPAY ==
[2025-03-09 12:42] LABS: Anion Gap 12 (5-15); BUN 23 mg/dL (4-19); BUN/Creat Ratio 21.4 RATIO (10-20); Calcium,Total 9.4 mg/dL (7.6-11.0); Carbon Dioxide 26.4 mmol/L (21.0-32.0); Chloride 102 mmol/L (98-108); Creatinine, Serum 1.09 mg/dL (0.70-1.20); EST Glomerular Filtration Rate 73 (>60); Glucose 120 mg/dL (70-99); Potassium 3.6 mmol/L (3.3-5.1); Sodium Level 140 mmol/L (133-145)
[2025-03-13 09:24] LABS: Anion Gap 10 (5-15); BUN 27 mg/dL (4-19); BUN/Creat Ratio 20.7 RATIO (10-20); Calcium,Total 9.6 mg/dL (7.6-11.0); Carbon Dioxide 25.2 mmol/L (21.0-32.0); Chloride 105 mmol/L (98-108); Creatinine, Serum 1.29 mg/dL (0.70-1.20); EST Glomerular Filtration Rate 60 (>60); Glucose 123 mg/dL (70-99); Potassium 4.8 mmol/L (3.3-5.1); Sodium Level 141 mmol/L (133-145)
[2025-03-26 09:35] LABS: Anion Gap 12 (5-15); BUN 26 mg/dL (4-19); BUN/Creat Ratio 22.3 RATIO (10-20); Calcium,Total 9.4 mg/dL (7.6-11.0); Carbon Dioxide 29.8 mmol/L (21.0-32.0); Chloride 97 mmol/L (98-108); Creatinine, Serum 1.18 mg/dL (0.70-1.20); EST Glomerular Filtration Rate 67 (>60); Glucose 131 mg/dL (70-99); Potassium 3.3 mmol/L (3.3-5.1); Sodium Level 139 mmol/L (133-145)
[2025-03-30 09:44] LABS: Anion Gap 11 (5-15); BUN 24 mg/dL (4-19); BUN/Creat Ratio 19.8 RATIO (10-20); Calcium,Total 9.3 mg/dL (7.6-11.0); Carbon Dioxide 26.2 mmol/L (21.0-32.0); Chloride 104 mmol/L (98-108); Creatinine, Serum 1.22 mg/dL (0.70-1.20); EST Glomerular Filtration Rate 64 (>60); Glucose 122 mg/dL (70-99); Potassium 4.6 mmol/L (3.3-5.1); Sodium Level 141 mmol/L (133-145)
[2025-04-06 09:41] LABS: Anion Gap 11 (5-15); BUN 23 mg/dL (4-19); BUN/Creat Ratio 19.2 RATIO (10-20); Calcium,Total 9.3 mg/dL (7.6-11.0); Carbon Dioxide 24.4 mmol/L (21.0-32.0); Chloride 105 mmol/L (98-108); Creatinine, Serum 1.18 mg/dL (0.70-1.20); EST Glomerular Filtration Rate 67 (>60); Glucose 124 mg/dL (70-99); Potassium 4.6 mmol/L (3.3-5.1); Sodium Level 141 mmol/L (133-145)
== END 2025-04-06 18:00 | disposition home or self-care (01) ==
LOC: LAB 07:46
PROVIDERS: PCP Family Medicine; Referring Provider Family Medicine; Visit Provider Family Medicine
DX: G25.81 Restless legs syndrome (principal)
CPT/HCPCS: 36415; 80048

== ENCOUNTER 2025-05-02 11:01 | Outpatient (RCR) | payer MEDICARE, OTHER, SELFPAY ==
[2025-04-20 08:28] LABS: Anion Gap 12 (5-15); BUN 25 mg/dL (4-19); BUN/Creat Ratio 20.6 RATIO (10-20); Calcium,Total 8.9 mg/dL (7.6-11.0); Carbon Dioxide 22.9 mmol/L (21.0-32.0); Chloride 107 mmol/L (98-108); Glucose 116 mg/dL (70-99); Potassium 4.1 mmol/L (3.3-5.1)
[2025-04-29 09:11] LABS: Anion Gap 12 (5-15); BUN 27 mg/dL (4-19); BUN/Creat Ratio 21.3 RATIO (10-20); Calcium,Total 9.3 mg/dL (7.6-11.0); Carbon Dioxide 24.1 mmol/L (21.0-32.0); Chloride 106 mmol/L (98-108); Glucose 122 mg/dL (70-99); Magnesium 2.5 mg/dL (1.5-2.2); PSA,Total- Diagnostic 4.34 ng/mL (0.00-4.00); Potassium 5.0 mmol/L (3.3-5.1); Vitamin D,25 Hydroxy 46.1 ng/mL (30-100)
[2025-05-02 12:51] LABS: Anion Gap 11 (5-15); BUN 23 mg/dL (4-19); BUN/Creat Ratio 19.2 RATIO (10-20); Calcium,Total 8.9 mg/dL (7.6-11.0); Carbon Dioxide 23.7 mmol/L (21.0-32.0); Chloride 102 mmol/L (98-108); Glucose 105 mg/dL (70-99); Potassium 4.0 mmol/L (3.3-5.1)
== END 2025-05-07 21:06 | disposition home or self-care (01) ==
LOC: LAB 11:01
PROVIDERS: PCP Family Medicine; Referring Provider Family Medicine; Visit Provider Family Medicine
DX: G25.81 Restless legs syndrome (principal); N18.2 Chronic kidney disease, stage 2 (mild); R97.20 Elevated prostate specific antigen [PSA]; I50.30 Unspecified diastolic (congestive) heart failure
CPT/HCPCS: 36415; 80048; 82088; 82306; 83735; 84153; 84244

== ENCOUNTER 2025-05-26 09:57 | Outpatient (RCR) | payer MEDICARE, OTHER, SELFPAY ==
[2025-05-12 08:16] LABS: Anion Gap 12 (5-15); BUN 26 mg/dL (4-19); BUN/Creat Ratio 21.6 RATIO (10-20); Calcium,Total 9.2 mg/dL (7.6-11.0); Carbon Dioxide 24.7 mmol/L (21.0-32.0); Chloride 103 mmol/L (98-108); Glucose 119 mg/dL (70-99); Potassium 4.4 mmol/L (3.3-5.1)
[2025-05-23 11:11] LABS: Anion Gap 12 (5-15); BUN 23 mg/dL (4-19); BUN/Creat Ratio 19.5 RATIO (10-20); Calcium,Total 9.4 mg/dL (7.6-11.0); Carbon Dioxide 24.9 mmol/L (21.0-32.0); Chloride 102 mmol/L (98-108); Glucose 113 mg/dL (70-99); Potassium 4.6 mmol/L (3.3-5.1)
[2025-05-26 11:45] LABS: Anion Gap 13 (5-15); BUN 22 mg/dL (4-19); BUN/Creat Ratio 19.2 RATIO (10-20); Calcium,Total 9.5 mg/dL (7.6-11.0); Carbon Dioxide 25.9 mmol/L (21.0-32.0); Chloride 102 mmol/L (98-108); Glucose 111 mg/dL (70-99); Potassium 4.2 mmol/L (3.3-5.1)
== END 2025-05-26 18:00 | disposition home or self-care (01) ==
LOC: LAB 09:57
PROVIDERS: PCP Family Medicine; Referring Provider Family Medicine; Visit Provider Family Medicine
DX: G25.81 Restless legs syndrome (principal)
CPT/HCPCS: 36415; 80048

== ENCOUNTER → 2025-06-04 | Outpatient (CLI) | payer MEDICARE, OTHER, SELFPAY ==
--- NOTE | 2025-06-04 13:30 | CT_ITS ---
PROCEDURE: CT BRAIN/HEAD WITHOUT CONTRAST 06/04/2025 REASON FOR EXAM: ONSET HEDACHE. HX OF ACUOUSTIC NEUROMA TECHNIQUE: CT BRAIN/HEAD WITHOUT CONTRAST Coronal and Sagittal reconstruction series were provided. One or more dose reduction techniques were used (e.g., Automated exposure control, adjustment of the mA and/or kV according to patient size, use of iterative reconstruction technique. RADIATION DOSE SUMMARY: CTDlvol: 44.99 mGy DLP: 849.54 mGycm COMPARISON: None available. FINDINGS: Postoperative changes of right canal wall up mastoidectomy, with partially opacified right mastoid bowl with evidence of fat grafting. Postoperative widening of the right internal auditory canal. Presumably related to reported history of acoustic neuroma. No aggressive osseous erosion/destruction. No acute intracranial hemorrhage, extra-axial collection, mass effect or evidence of acute infarct. Mild generalized brain parenchymal volume loss. Normal ventricular caliber. Absent [place] ocular lenses. No acute skull base or calvarial fracture. Mucoid debris in the left sphenoid sinus. Atherosclerotic vascular calcifications. Clear left mastoid air cells. CT/Brain/Head without Contrast IMPRESSION: 1. No acute intracranial abnormality. 2. Postoperative changes of right mastoidectomy with evidence of fat grafting, presumably related to reported history of acoustic neuroma. Reading Location: [id number]
--- OUTSIDE RECORDS SUMMARY | 2025-06-04 19:23 | XMS RPT_ITS | CCD ---
Author Organization [facility] Care Team Providers Care Pillowcase Cutter Name Role Phone Maura Linn Unavailable Unavailable Suzanne LOPEZ, Raul Farmer Unavailable Tony Kay MD Primary Care Provider [phone] Dr. Tony Kay Primary Care Provider Dr. Tony Kay Referring Provider 1([facility])[phone] Bulmaro Childers Attending Provider 1([facility])[phone] Dr. Jere Fields Attending Provider 1([facility])[phone] Jere Fields Referring Provider 1([facility])[phone] Susan Leo Attending Provider 1([facility])[phone] Herson ROTARY ENGRAVER, ROTARY ENGRAVER-C Mary Dorsey Attending Provider Dr. Ben Emmanuel Attending Provider 1([facility])[phone] Tony Kay Primary Care Provider 1([facility])[phone] Tony Kay Referring Provider 1([facility])[phone] Dr. Tony Kay Referring Provider 1([facility])[phone] Susan Leo Attending Provider 1([facility])[phone] Herson ROTARY ENGRAVER, ROTARY ENGRAVER-C Mary Dorsey Attending Provider [phone] Dr. Ben Emmanuel Attending Provider 1([facility])[phone] Tony Kay Primary Care Provider 1([facility])[phone] Susan Leo Referring Provider 1([facility])[phone] Dr. Susan Leo Other Provider 1([facility])[phone] Susan Leo Attending Provider 1([facility])[phone] Dr. Tony Kay Referring Provider Dr. Tony Kay Primary Care Provider Dr. Tony Kay Referring Provider Dr. Susan Leo Attending Provider Lien, Dr. Contreras Attending Provider Rahul, Dr. Rios Primary Care Provider Dr. Tony Kay Referring Provider Dr. Susan Leo Attending Provider Lien, Dr. Contreras Attending Provider [phone] Rahul, Dr. Rios Primary Care Provider Dr. Tony Kay Referring Provider Tony Kay MD Primary Care Provider Rahul LOPEZ, Dr. Rios [...] Provider Rahul LOPEZ, Dr. Rios Attending Provider Dr. Tony Kay MD Referring Provider Dr. Jere Fields MD Attending Provider Kay, Tony Primary Care Unavailable Kay, Tony Attending Unavailable Kay, Tony Referring Unavailable Kay, Tony Primary Care Unavailable Kay, Tony Attending Unavailable Kay, Tony Referring Unavailable Kay, Tony Referring Unavailable Kay, Tony Attending Unavailable Kay, Tony Primary Care Unavailable Kay, Tony Primary Care Unavailable Kay, Tony Attending Unavailable Kay, Tony Primary Care Unavailable Kay, Tony Attending Unavailable Kay, Tony Referring Unavailable Kay, Tony Attending Unavailable Kay, Tony Primary Care Unavailable Kay, Tony Referring Unavailable Kay, Tony Referring Unavailable Kay, Tony [...] Referring Unavailable Kay, Tony Primary Care Unavailable Jere Fields Attending Unavailable Friend, Ben Attending Unavailable Friend, Ben Consulting Unavailable Kay, Tony Primary Care Unavailable Kay, Tony Referring Unavailable Friend, Ben Attending Unavailable Kay, Tony Referring Unavailable Friend, Ben Attending Unavailable Kay, Tony Primary Care Unavailable Kay, Tony Referring Unavailable Kay, Tony Referring Unavailable Kay, Tony [...] Unavailable Stephen Alvarez Attending Unavailable Kay, Tony Referring Unavailable Kay, Tony Primary Care Unavailable Kay, Tony Attending Unavailable Kay, Tony Primary Care Unavailable Kay, Tony Referring Unavailable Kay, Tony Attending Unavailable Kay, Tony Referring Unavailable Kay, Tony Primary Care Unavailable Kay, Toyn Attending Unavailable Kay, Tony Primary Care Unavailable Kay, Tony Referring Unavailable Kay, Tony Attending Unavailable BENDARAM, MILTON VERDIN Referring Unavaila ble KAY, TONY A Primary Care Unavailable DREW RHODES Attending Unavailable BENDARAM, MILTON VERDIN Referring Unavaila ble KAY, TONY A Primary Care Unavailable BENDARAM, MILTON VERDIN Attending Unavaila ble KAY, TONY A Primary Care Unavailable BENDARAM, MILTON VERDIN Referring Unavaila ble KAY, TONY A Primary Care Unavailable KIM ROSE Attending Unavailable KAY, TONY A Primary Care Unavailable KIM ROSE Attending Unavailable KAY, TONY A Primary Care Unavailable BENDARAM, MILTON VERDIN Attending Unavaila ble SELF Referring Unavailable KAY, TONY A Primary Care Unavailable Allergies Allergy Classification Reported Allergen(s) Allergy Type Date of Onset Reaction(s) Facility (20 sources) aspirin; Translations: [ASPIRIN] drug allergy 6 Rash [facility] Work Phone: (2 sources) penicillin v drug allergy 7 [facility] Work Phone: (11 sources) sulfaSALAzine; Translations: [SULFASALAZINE] drug allergy 7 Other: See Comments [facility] Work Phone: (8 sources) Penicillins; Translations: [PENICILLINS] Propensity to adverse reactions 6 Rash [facility] Work Phone: (13 sources) Sulfamethoxazole ; Translations: [SULFAMETHOXAZOL E] Drug Allergy 2 Other: See Comments [facility] (20 sources) Penicillins Allergy to substance 8 Unknown [facility] (20 sources) Sulfonamides (Antibiotic) Propensity to adverse reactions 8 MIGRAINES [facility] (5 sources) Penicillins Propensity to adverse reactions 6 [facility] (1 source) Aspirin Drug Allergy 4 [facility] (1 source) Penicillins Drug allergy (disorder) 4 [facility] (1 source) Sulfonamides (Antibiotic) Drug allergy (disorder) 4 [facility] Medications Current Medications Medication Drug Class(es) [...] 25, 2017 12:00am ALPHA LIPOIC ACID ORAL (12 sources) take 600 mg by mouth once daily ALPHA LIPOIC ACID ORAL Take 600 mg by mouth once daily. Active take 600 mg by mouth once daily ALPHA LIPOIC ACID ORAL Take 600 mg by mouth once daily. 0 Active Comment on above: Take 600 mg by mouth once daily. ARGININE HCL, L-ARGININE, ORAL (12 sources) take 1800 mg by mouth once [...] hydrochloride 150 mg extended release oral tablet (13 sources) Aminoketone Start: 4 take 1 tablet by mouth once daily in the morning Bupropion Hcl (Wellbutrin Sr) 150 mg tablet sustained-release 12 hr Active 150 mg PO EVERY MORNING July 02, 2024 12:00am Calcium Carbonate / vitamin D3 (12 sources) take 4000 [IU] by mouth once [...] CAPS One tablet by mouth daily CHOLECALCIFEROL [id number] Raul Palacios MD cholecalciferol, vitamin D3, (VITAMIN D3 ORAL) (6 sources) cholecalciferol, vitamin D3, (VITAMIN D3 ORAL) Take by mouth once daily. Active CHONDROITIN SULFATE A ORAL (9 sources) take 1500 mg by mouth once daily CHONDROITIN SULFATE A ORAL Take 1,500 mg by mouth once daily. Active take 1500 mg by mouth once daily CHONDROITIN SULFATE A ORAL Take 1,500 mg by mouth once daily. 0 Active Comment on above: Take 1,500 mg by phyllis th once daily. COENZYME [id number] ORAL (12 sources) take 600 mg by mouth twice daily COENZYME [id number] ORAL Take 600 mg by mouth twice daily. Active take 600 mg by mouth twice daily COENZYME [id number] ORAL Take 600 mg by mouth twice daily. 0 Active Comment on above: Take 600 mg by mouth twice daily. CPAP (12 sources) CPAP daily at be dtime. Active CPAP daily at be dtime. 0 Active Comment on above: daily at bedtime. doxepin 6 mg oral tablet (8 sources) Tricyclic Antidepressant Doxepin 6 mg tab [...] bedtime. ferrous sulfate 325 mg oral tablet (8 sources) ferrous sulfate (IRON) 325 mg (65 [...] tablet by mouth three times daily FUROSEMIDE [id number] Raul Palacios MD Comment on above: Take [...] 2017 12:00am L.Acidoph,Paracasei,B.Animal is 1 EACH capsule (13 sources) Start: 05-25-2017 take 1 capsule by mouth once daily L.Acidoph,Paracasei,B.Animalis 1 EACH capsule Active 1 NMA PO DAILY May 25, 2017 12:00am Start: 05-25-2017 take 1 capsule by mouth once daily L.Acidoph,Paracasei,B.Animalis 1 EACH ca psule Active 1 NMA PO DAILY May 24, 2017 11:00pm Lactobacillus acidophilus (6 sources) Lactobacillus acidophilus (PROBIOTIC ORAL) Take by mouth once daily. Active levOCARNitine (12 sources) Carnitine Analog take 1000 mg by [...] 2017 12:00am metOLazone 5 mg oral tablet (6 sources) Thiazide-like Diuretic Start: 5 take 1 tablet by mouth once daily metOLazone (ZAROXOLYN) 5 mg tablet Take 5 mg by mouth once daily. 11/14/2024 Active MULTIVITAMIN TAB (12 sources) Start: 6 take 1 tablet by mouth once daily MULTIVITAMIN TAB Take one(1) tablet daily by mouth 0 11/07/2005 Active Comment on above: Take one(1) tablet d aily by mouth OMEGA 3 550 MG CAP (12 sources) Start: 6 take 1 tablet by mouth once daily OMEGA 3 550 MG CAP Take one(1) tablet daily by mouth 0 11/07/2005 Active Comment on above: Take one(1) tablet d aily by mouth phenylephrine hydrochloride 25 mg/ml ophthalmic solution (3 sources) alpha-1 Adrenergic Agonist Start: 3 End: PHENYLephrine 2.5 % 1 Drop (AK-DILATE, KYLE-SYNEPHRINE) Start: 11-01-2022 End: 11-02-2022 PHENYLephrine 2.5 % 1 Drop ( AK-DILATE, KYLE-SYNEPHRINE) Start: 09-12-2022 End: 09-13-2022 PHENYLephrine 2.5 % 1 Drop ( AK-DILATE, KYLE-SYNEPHRINE) microencapsulated potassium chloride 20 meq extended release oral tablet (20 sources) Start: 11-08-2024 take 4 tablets by mouth three times daily potassium chloride ER (KLOR-CON) 20 mEq tablet Take 80 mEq by mouth three times a day. 11/08/2024 Active Start: 06-11-2024 take 2 tablets by [facility] twice daily Potassium Chloride 20 mEq tablet,ER particles/crystals Active 40 meq PO TWICE A DAY June 11, 2024 12:00am Because of diuretics End: 11-10-2022 take 8 mEq by mouth [...] Drop, BOTH EYES, DIRECT ED, Starting on Gena 10/30/24 at 1530, Until Sun10/31/24 at 0329, Administer [...] % 1 Drop (A LCAINE) Saccharomyces boulardii (6 sources) Saccharomyces martin ulardii (FLORASTOR ORAL) Take by mouth once daily. Active tropicamide 10 mg/ml ophthalmic solution (5 sources) Anticholinergic Start: 10-30-2024 End: 10-31-2024 tropicamide 1 % 1 Drop (MYDRIACYL) Start: 10-30-2024 End: 10-31-2024 1 Drop, BOTH EYES, DIRECT ED, Starting on Gena 10/30/24 at 1530, Until Sun10/31/24 at 0329, Administer [...] 12:00am Start: 05-24-2017 take 1 tablet by [facility] once daily B-12 5000 MCG CAPS One tablet by mouth daily CYANOCOBALAMIN [id number] Raul Palacios MD cyanocobalamin, vitamin B-12, 5,000 mcg/mL drop Dissolve 5,000 mcg under the tongue. Active Comment on above: Dissolve 5,000 mcg u nder the tongue. zinc gluconate 50 mg oral tablet (13 sources) Start: 06-11-2024 take 1 tablet by mouth once daily Zinc Gluconate 50 mg tablet Active 50 mg PO DAILY June 11, 2024 12:00am zinc sulfate 220 mg oral capsule (8 sources) zinc sulfate (ZINC-220) 220 mg (50 mg zinc) capsule Active Completed/Discontinued Medications Medication Drug Class(es) Dates Sig (Normalized) Sig (Original) anastrozole 1 mg oral tablet (6 sources) Aromatase Inhibitor Start: 05-24-2017 End: 11-10-2022 take 1 tablet by mouth once daily ANASTROZOLE 1 MG TABS One tablet by mouth daily ANASTROZOLE [id number] Raul Palacios MD Comment on above: Take [...] One tablet by mouth daily ARGININE HCL [id number] Raul Palacios MD CHONDROITIN SULFATE A (CHONDROITIN [...] by mouth daily CHONDROITIN SULFATE A CAPS [id number] Raul Palacios MD doxycycline hyclate 100 mg oral capsule (17 sources) Tetracycline-cla ss Drug Start: 11-26-2023 End: 05-30-2024 take 1 capsule by mouth twice daily Doxycycline Hyclate 100 mg capsule Discontinued 100 mg PO TWICE A DAY 60 1 November 26, 2023 1:00am May 30, 2024 10:59am fish oil (1 source) Start: 05-24-2017 take 1 tablet by mouth once daily [facility] FISH OIL CAPS One tablet by mouth daily OMEGA-3 FATTY ACIDS CAPS [id number] Raul Palacios MD glucosamine sulfate 750 mg [...] tablet by mouth daily GLUCOSAMINE SULFATE CAPS [id number] Raul Palacios MD take 1500 mg by [...] One tablet by mouth daily LYSINE TABS [id number] Raul Palacios MD take 2000 mg by mout h once daily LYSINE ORAL Take 2,000 mg by mouth once daily. Active take 2000 mg by mout h once daily LYSINE ORAL Take 2,000 mg by mouth once daily. 0 Active Comment on above: Take 2,000 mg by phyllis th once daily. magnesium (14 sources) Start: 05-24-2017 take 1 tablet by mouth once daily CHELATED MAGNESIUM TABS One tablet by mouth daily MAGNESIUM TABS [id number] Raul Palacios MD take 1 tablet by [...] One tablet by mouth daily MULTIPLE VITAMINS-MINERALS [id number] Raul Palacios MD MULTIPLE VITAMINS-MINERALS (1 source) Start: 2016 take 1 tablet by mouth once daily MULTIVITAMIN ADULT TABS One tablet by mouth daily MULTIPLE VITAMINS-MINERALS [id number] Raul Palacios MD Multivitamin (Multiple Vitamins) 1 [...] Start: 05-25-2017 take 1 tablet by phyllis once daily Multivitamin (Multiple Vitamins) 1 EACH tablet Active 1 EACH PO DAILY May 25, 2017 12:00am Roy 9-Jqh-Kzx-Fish Oil (Fish Oil 1,400 Mg Softgel) 1 EACH capsule,delayed release(DR/EC) (20 sources) Start: 05-25-2017 End: 05-29-2023 take 1 capsule by mouth once daily Roy 1-Wcg-Vve-Fish Oil (Fish Oil 1,400 Mg Softgel) 1 EACH capsule,delayed release(DR/EC) Discontinued 1 NMA PO DAILY May 25, 2017 12:00am May 29, 2023 1:25pm Start: 05-25-2017 End: 05-29-2023 take 1 capsule by mouth once daily Roy 0-Xax-Ijg-Fish Oil (Fish Oil 1,400 Mg Softgel) 1 EACH capsule,delayed release(DR/EC) Discontinued 1 NMA PO DAILY May 24, 2017 11:00pm May 29, 2023 12:25pm Start: 05-25-2017 End: 05-29-2023 take 1 capsule by mouth once daily Roy 1-Fri-Vgo-Fish Oil (Fish Oil 1,400 Mg Softgel) 1 EACH capsule,delayed release(DR/EC) Discontinued 1 EACH PO DAILY May 24, 2017 11:00pm May 29, 2023 12:25pm Start: 05-25-2017 End: 05-29-2023 take 1 capsule by mouth once daily Roy 4-Tjo-Duz-Fish Oil (Fish Oil 1,400 Mg Softgel) 1 EACH capsule,delayed release(DR/EC) Discontinued 1 EACH PO DAILY May 25, 2017 12:00am May 29, 2023 1:25pm Start: 05-25-2017 take 1 capsule by mo [facility] once daily Roy 3-Ctb-Dij-Fish Oil (Fish Oil 1,400 Mg Softgel) 1 EACH capsule,delayed release(DR/EC) Active 1 EACH PO DAILY May 25, 2017 12:00am OMEGA-3 FATTY ACIDS CAPS (1 source) Start: 05-24-2017 take 1 tablet by mouth once daily [facility] FISH OIL CAPS One tablet by mouth daily OMEGA-3 FATTY ACIDS CAPS [id number] Raul Palacios MD polyethylene glycol 3350 363944 mg / potassium chloride 2820 mg / sodium bicarbonate 6360 mg / sodium chloride 5530 mg / sodium sulfate 75986 mg powder for oral solution (2 sources) Osmotic Laxative Start: 05-24-2017 GOLYTELY 227. 1 GM SOLR take as directed PEG 8582-SAB-RSXRO-NAC L-NASULF [id number] Raul Palacios MD Start: 05-24-2017 GOLYTELY 227.1 GM SOLR take as directed PEG 0288-ADY-WXYCJ-NACL-NASULF [id number] Raul Palacios MD polyethylene glycol 400 4 [...] One tablet by mouth daily POTASSIUM CHLORIDE [id number] Raul Palacios MD Start: 05-24-2017 take 1 tablet by phyllis th once daily POTASSIUM CHLORIDE ER 8 MEQ CR-TABS One tablet by mouth daily POTASSIUM CHLORIDE [id number] Raul Palacios MD potassium citrate 10 meq [...] mg by phyllis th one time only. prazosin 1 mg oral capsule (13 sources) alpha-Adrenergic Ellie Start: 4 End: 4 take 1 capsule by mouth at bedtime Prazosin 1 mg capsule Discontinued 1 mg PO AT BEDTIME 30 May 30, 2024 12:00am June 11, 2024 8:43am PROBIOTIC PRODUCT (1 source) Start: 7 [facility] PROBIOTIC CAPS PROBIOTIC PRODUCT [id number] Raul Palacios MD PROBIOTIC PRODUCT (1 source) Start: 7 [facility] PROBIOTIC CAPS PROBIOTIC PRODUCT [id number] Raul Palacios MD thioctic acid 100 mg oral capsule (2 sources) Start: 7 take 1 tablet by mouth once daily ALPHA-LIPOIC ACID 100 MG CAPS One tablet by mouth daily ALPHA-LIPOIC ACID [id number] Raul Palacios MD ubidecarenone 100 mg oral capsule (20 sources) Start: 3 End: 3 take 10 capsules by mouth once daily Coenzyme Q10 100 mg capsule Discontinued 100 mg PO DAILY February 22, 2023 12:00am May 29, 2023 1:25pm Problems Active Problems Problem Classification Problem Date Documented Da te Episodic/Chronic Anxiety disorders (14 sources) Claustrophobia; Translations: [Claustrophobia] Onset: 05-24-2017 05-24-2017 Chronic Blindness and vision defects (5 sources) Blurring of visual image; Translations: [Other visual disturbances] Episodic Cancer of brain and nervous system (2 sources) Malignant neoplasm of right acoustic nerve; 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] Onset: 05-24-2017 05-24-2017 Chronic Cancer of head and neck (14 sources) Carcinoma in situ of larynx; Translations: [Carcinoma in situ of larynx] Onset: 05-24-2017 05-24-2017 Chronic Cataract (20 sources) Bilateral pseudophakia; Translations: [Presence of intraocular lens] Onset: 09-12-2022 Chronic Chronic kidney disease (3 sources) Chronic kidney disease stage 3A ; Translations: [CKD stage 3a, GFR 45-59 ml/min (HCC)] Onset: 05-07-2025 11-28-2024 Chronic Chronic kidney disease (4 sources) Chronic kidney disease; Translations: [Chronic kidney disease, stage 3b] Onset: 12-17-2024 Congestive heart failure; nonhypertensive (1 source) Unspecified diastolic (congestive) heart failure; Translations: [Unspecified diastolic (congestive) heart failure] Onset: 05-07-2025 Chronic Disorders of lipid metabolism (2 sources) Hyperlipidemia; Translations: [Hyperlipidemia, unspecified] Onset: 05-24-2017 05-24-2017 Chronic Diverticulosis and diverticulitis (20 sources) Diverticulitis; Translations: [Diverticulitis of intestine, part unspecified, without perforation or abscess without bleeding] Onset: 05-24-2017 05-24-2017 Chronic Esophageal disorders (14 sources) Stricture of esophagus; Translations: [Esophageal obstruction] Onset: 05-24-2017 05-24-2017 Chronic Essential hypertension (5 sources) Hypertensive disorder; Translations: [Essential (primary) hypertension] Onset: 05-24-2017 05-24-2017 Chronic Genitourinary congenital anomalies (12 sources) Multiple congenital cysts of kidney; Translations: [Congenital multiple renal cysts] Onset: 05-01-2016 05-01-2016 Chronic Headache; including migraine (1 source) Headache; including migraine; Translations: [Headache, unspecified] Onset: 05-29-2025 Hemorrhoids (14 sources) Internal hemorrhoids; Translations: [Hemorrhoids] Onset: 05-24-2017 05-24-2017 Episodic Neoplasms of unspecified nature or uncertain behavior (20 sources) Neoplasm of uncertain behavior of skin; Translations: [Neoplasm of uncertain behavior of skin] 05-29-2023 Episodic Nonspecific chest pain (2 sources) Other chest pain; Translations: [Other chest pain] Onset: 04-04-2025 Episodic Other and unspecified benign neoplasm (12 sources) Benign neoplasm of cranial nerve; Translations: [Benign neoplasm of cranial nerves] Onset: 06-08-2015 06-08-2015 Chronic Other circulatory disease (14 sources) Raynaud's phenomenon ; Translations: [Raynaud's syndrome without gangrene] Onset: 05-24-2017 05-24-2017 Chronic Other congenital anomalies (2 sources) Congenital pes planus; Translations: [Congenital pes planus, unspecified foot] Onset: 05-24-2017 05-24-2017 Chronic Other connective tissue disease (1 source) Myalgia, unspecified site; Translations: [Myalgia, unspecified site] Onset: 04-04-2025 Episodic Other diseases of veins and lymphatics (2 sources) Lymphedema; Translations: [Lymphedema, not elsewhere classified] Onset: 05-24-2017 05-24-2017 Chronic Other eye disorders (4 sources) Tear film insufficiency; Translations: [Dry eye syndrome of bilateral lacrimal glands] Episodic Other eye disorders (4 sources) Hypertropia of left eye; Translations: [Vertical strabismus, left eye] Episodic Other eye disorders (4 sources) 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; Translations: [Monocular exotropia with other noncomitancies, left eye] Episodic Other gastrointestinal disorders (20 sources) Diarrhea; Translations: [Diarrhea, unspecified] 06-01-2023 Episodic Other gastrointestinal disorders (8 sources) Diarrhea, unspecified; Translations: [Diarrhea] 06-01-2023 Episodic Other hereditary and degenerative nervous system conditions (14 sources) Restless legs; Translations: [Restless legs syndrome] [...] Chronic Other nutritional; endocrine; and metabolic disorders (12 sources) Metabolic syndrome X; Translations: [Metabolic syndrome] Onset: 01-10-2008 01-10-2008 Chronic Other skin disorders (20 sources) Keloid scar; Translations: [Hypertrophic scar] 05-29-2023 Episodic Other skin disorders (8 sources) Hypertrophic scar; Translations: [Keloid scar] 05-29-2023 Episodic Other skin disorders (20 sources) Epidermoid cyst; Translations: [Epidermal cyst] 07-31-2023 Episodic Other skin disorders (7 sources) Epidermal cyst; Translations: [Sebaceous cyst] 07-31-2023 Episodic Unclassified (14 sources) Sleep apnea; Translations: [Sleep apnea, unspecified] Onset: 05-24-2017 05-24-2017 Chronic Unclassified (1 source) Blurred Vision Onset: 06-01-2025 Past or Other Problems Problem Classification Problem Date Documented Da te Episodic/Chronic Abdominal pain (5 sources) Abdominal wall pain; Translations: [Abdominal pain] Onset: 7 05-24-2017 Episodic Calculus of urinary tract (12 sources) Kidney stone; Translations: [Calculus of kidney] Onset: 6 05-01-2016 Episodic Deficiency and other anemia (1 source) Anemia, unspecified; Translations: [Anemia, unspecified] Onset: 4 Episodic Gastrointestinal hemorrhage (12 sources) Lower gastrointestinal hemorrhage; Translations: [Gastrointestinal hemorrhage, unspecified] Onset: 2 11-01-2011 Episodic Other aftercare (1 source) Other prison (current) drug therapy; Translations: [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] Onset: 5 Episodic Other and unspecified benign neoplasm (2 sources) Benign neoplasm of testis; Translations: [Benign neoplasm of unspecified testis] Onset: 7 05-24-2017 Episodic Other connective tissue disease (17 sources) Radial styloid tenosynovitis; Translations: [Muscle pain] Onset: 7 05-24-2017 Episodic Other connective tissue disease (1 source) Muscle pain; Translations: [Myalgia] Onset: 7 05-24-2017 Episodic Other connective tissue disease (1 source) Swelling of lower limb; Translations: [Other specified soft tissue disorders] Onset: 7 05-24-2017 Episodic Other connective tissue disease (1 source) Fibromyositis; Translations: [Fibromyalgia] Onset: 7 05-24-2017 Episodic Other diseases of kidney and ureters (1 source) Cyst of kidney, acquired; Translations: [Cyst of kidney, acquired] Onset: 5 Episodic Other gastrointestinal disorders (2 sources) Dysphagia; Translations: [Dysphagia, unspecified] Onset: 7 05-24-2017 Episodic Other screening for suspected conditions (not mental disorders or infectious disease) (4 sources) Decreased cortisol level; Translations: [Other specified abnormal findings of blood chemistry] Onset: 5 11-28-2024 Episodic Other skin disorders (12 sources) Sebaceous cyst of skin; Translations: [Sebaceous cyst] Onset: 7 11-08-2006 Episodic Other skin disorders (1 source) Follicular cyst of the skin and subcutaneous tissue, unspecified; Translations: [Follicular cyst of the skin and subcutaneous tissue, unspecified] Onset: 4 Episodic Residual codes; unclassified (12 sources) H/O: urinary disease; Translations: [Personal history of other specified conditions] Onset: 6 05-01-2016 Episodic Skin and subcutaneous tissue infections (14 sources) Cellulitis; Translations: [Cellulitis and abscess of trunk] Onset: 7 05-24-2017 Episodic Unclassified (2 sources) Decreased testosterone level ; Translations: [Testicular hypofunction] Onset: 7 05-24-2017 Episodic Results Test Name Value Interpretation Reference Range Facility Basic Metabolic Profile (BMP )on 05-26-2025 BUN/CRE 19.2 RATIO Normal 10-20 [facility] Comment on above: Performed By: #### L 500.2500 ####[facility] [id number] [place], [place], [id number] Calcium [Mass/Vol] 9.5 mg/dL Normal 7.6-11.0 [facility] Comment on above: Performed By: #### L 500.2500 ####[facility] [id number] [place], [address] Chloride [Moles/Vol] 102 mmol/L Normal 98-108 [facility] Comment on above: Performed By: #### L 500.2500 ####[facility] [address] [place], [address] CO2 [Moles/Vol] 25.9 mmol/L Normal 21.0-32.0 [facility] Comment on above: Performed By: #### L 500.2500 ####[facility] [address] [place], [address] Creatinine [Mass/Vol] 1.14 mg/dL Normal 0.70-1.[address] [facility] Comment on above: Performed By: #### L 500.2500 ####[facility] [address] [place], [address] GAP 13 Normal 5-15 [facility] Comment on above: Performed By: #### L 500.2500 ####[facility] [address] [place], [address] GFR/1.73 sq M.predicted among non-blacks MDRD (S/P/Bld) [Vol rate/Area] 70 mL/min/{1.73_m2} Normal >60 [facility] Comment on above: Result Comment: mL/m in/1.73m2 CKD-EPI Creatinine Equation (2020) Performed By: #### L 500.2500 ####[facility] [address] [place], [address] Glucose [Mass/Vol] 111 mg/dL High 70-99 [facility] Comment on above: Performed By: #### L 500.2500 ####[facility] [address] [place], [address] Potassium [Moles/Vol] 4.2 mmol/L Normal 3.3-5.[address] [facility] Comment on above: Performed By: #### L 500.2500 ####[facility] [address] [place], [address] Sodium [Moles/Vol] 141 mmol/L Normal 133-145 [facility] Comment on above: Performed By: #### L 500.2500 ####[facility] [address] [place], [address] Urea nitrogen [Mass/Vol] 22 mg/dL High 4-19 [facility] Comment on above: Performed By: #### L 500.2500 ####[facility] [address] [place], [address] Basic Metabolic Profile (BMP )on 05-23-2025 BUN/CRE 19.5 RATIO Normal 10-20 [facility] Comment on above: Performed By: #### L 509.6001, L3410.9992, L501.5200, L500.2500 #### [facility] [address] [place], [address] Calcium [Mass/Vol] 9.4 mg/dL Normal 7.6-11.0 [facility] Comment on above: Performed By: #### L 509.6001, L3410.9992, L501.5200, L500.2500 #### [facility] [address] [place], [address] Chloride [Moles/Vol] 102 mmol/L Normal 98-108 [facility] Comment on above: Performed By: #### L 509.6001, L3410.9992, L501.5200, L500.2500 #### [facility] [address] [place], [address] CO2 [Moles/Vol] 24.9 mmol/L Normal 21.0-32.0 [facility] Comment on above: Performed By: #### L 509.6001, L3410.9992, L501.5200, L500.2500 #### [facility] [address] [place], [address] Creatinine [Mass/Vol] 1.17 mg/dL Normal 0.70-1.[address] [facility] Comment on above: Performed By: #### L 509.6001, L3410.9992, L501.5200, L500.2500 #### [facility] [address] [place], [address] GAP 12 Normal 5-15 [facility] Comment on above: Performed By: #### L 509.6001, L3410.9992, L501.5200, L500.2500 #### [facility] [address] [place], [address] GFR/1.73 sq M.predicted among non-blacks MDRD (S/P/Bld) [Vol rate/Area] 67 mL/min/{1.73_m2} Normal >60 [facility] Comment on above: Result Comment: mL/m in/1.73m2 CKD-EPI Creatinine Equation (2020) Performed By: #### L 509.6001, L3410.9992, L501.5200, L500.2500 #### [facility] [address] [place], [address] Glucose [Mass/Vol] 113 mg/dL High 70-99 [facility] Comment on above: Performed By: #### L 509.6001, L3410.9992, L501.5200, L500.2500 #### [facility] [address] [place], [address] Potassium [Moles/Vol] 4.6 mmol/L Normal 3.3-5.[address] [facility] Comment on above: Performed By: #### L 509.6001, L3410.9992, L501.5200, L500.2500 #### [facility] [address] [place], [address] Sodium [Moles/Vol] 139 mmol/L Normal 133-145 [facility] Comment on above: Performed By: #### L 509.6001, L3410.9992, L501.5200, L500.2500 #### [facility] [address] [place], [address] Urea nitrogen [Mass/Vol] 23 mg/dL High 4-19 [facility] Comment on above: Performed By: #### L 509.6001, L3410.9992, L501.5200, L500.2500 #### [facility] [address] [place], [address] Basic Metabolic Profile (BMP )on 05-12-2025 BUN/CRE 21.6 RATIO High 10-20 [facility] Comment on above: Performed By: #### L 509.6001, L3410.9992, L501.5200, L500.2500 #### [facility] [address] [place], [address] Calcium [Mass/Vol] 9.2 mg/dL Normal 7.6-11.0 [facility] Comment on above: Performed By: #### L 509.6001, L3410.9992, L501.5200, L500.2500 #### [facility] [address] [place], [address] Chloride [Moles/Vol] 103 mmol/L Normal 98-108 [facility] Comment on above: Performed By: #### L 509.6001, L3410.9992, L501.5200, L500.2500 #### [facility] [address] [place], [address] CO2 [Moles/Vol] 24.7 mmol/L Normal 21.0-32.0 [facility] Comment on above: Performed By: #### L 509.6001, L3410.9992, L501.5200, L500.2500 #### [facility] [address] [place], [address] Creatinine [Mass/Vol] 1.22 mg/dL High 0.70-1.[address] [facility] Comment on above: Performed By: #### L 509.6001, L3410.9992, L501.5200, L500.2500 #### [facility] [address] [place], [address] GAP 12 Normal 5-15 [facility] Comment on above: Performed By: #### L 509.6001, L3410.9992, L501.5200, L500.2500 #### [facility] [address] [place], [address] GFR/1.73 sq M.predicted among non-blacks MDRD (S/P/Bld) [Vol rate/Area] 64 mL/min/{1.73_m2} Normal >60 [facility] Comment on above: Result Comment: mL/m in/1.73m2 CKD-EPI Creatinine Equation (2020) Performed By: #### L 509.6001, L3410.9992, L501.5200, L500.2500 #### [facility] [address] [place], [address] Glucose [Mass/Vol] 119 mg/dL High 70-99 [facility] Comment on above: Performed By: #### L 509.6001, L3410.9992, L501.5200, L500.2500 #### [facility] [address] [place], [address] Potassium [Moles/Vol] 4.4 mmol/L Normal 3.3-5.[address] [facility] Comment on above: Result Comment: Hemo lysis present, Results??could be affected. ?? Performed By: #### L 509.6001, L3410.9992, L501.5200, L500.2500 #### [facility] [address] [place], [address] Sodium [Moles/Vol] 140 mmol/L Normal 133-145 [facility] Comment on above: Performed By: #### L 509.6001, L3410.9992, L501.5200, L500.2500 #### [facility] [address] [place], [address] Urea nitrogen [Mass/Vol] 26 mg/dL High 4-19 [facility] Comment on above: Performed By: #### L 509.6001, L3410.9992, L501.5200, L500.2500 #### [facility] [address] [place], [address] Aldosterone, Serumon 025 ALDOSTERONE,S 77.8 ng/dL High 0.0-30.0 [facility] Comment on above: Order Comment: Test( s) 260676-Msgqd Activity, Plasmawas developed and its performance characteristicsdetermined by [facility]. It has not been cleared or approvedby the Food and Drug Administration. Result Comment: Perf ormed at: - [facility] [id number] Template Checker: Carlos Sim MD, Phone: [phone] Performed By: #### L 3400.4000, L3300.1100, L506.1001 ####[facility] [address] [place], [address] Renin, Plasmaon 05-05-2025 RENIN, PLASMA 1.733 ng/mL/hr Normal 0.167-5.38 0 [facility] Comment on above: Order Comment: Test( s) 075063-Bzovu Activity, Plasmawas developed and its performance characteristicsdetermined by [facility]. It has not been cleared or approvedby the Food and Drug Administration. Performed By: #### L 3400.4000, L3300.1100, L506.1001 ####[facility] [address] [place], [address] Anion gap in Serum or Plasma Ordered By: Tony Kay on 05-02-2025 Anion gap [Moles/Vol] 11 mmol/L 5-[address] [facility] BUN/creatinine ratioOrdered By: Tony Kay on 05-02-2025 Urea nitrogen/Creatinine [Mass ratio] 19.2 mg/mg 07-27 [facility] Basic Metabolic Profile (BMP )on 05-02-2025 BUN/CRE 19.2 RATIO Normal 07-27 [facility] Comment on above: Performed By: #### L 509.6001, L3410.9992, L501.5200, L500.2500 #### [facility] [address] [place], [address] Calcium [Mass/Vol] 8.9 mg/dL Normal 7.6-11.0 [facility] Comment on above: Performed By: #### L 509.6001, L3410.9992, L501.5200, L500.2500 #### [facility] [address] [place], [address] Chloride [Moles/Vol] 102 mmol/L Normal 98-108 [facility] Comment on above: Performed By: #### L 509.6001, L3410.9992, L501.5200, L500.2500 #### [facility] [address] [place], [address] CO2 [Moles/Vol] 23.7 mmol/L Normal 21.0-32.0 [facility] Comment on above: Performed By: #### L 509.6001, L3410.9992, L501.5200, L500.2500 #### [facility] [address] [place], [address] Creatinine [Mass/Vol] 1.22 mg/dL High 0.70-1.[address] [facility] Comment on above: Performed By: #### L 509.6001, L3410.9992, L501.5200, L500.2500 #### [facility] [address] [place], [address] GAP 11 Normal - [facility] Comment on above: Performed By: #### L 509.6001, L3410.9992, L501.5200, L500.2500 #### [facility] [address] [place], [address] GFR/1.73 sq M.predicted among non-blacks MDRD (S/P/Bld) [Vol rate/Area] 64 mL/min/{1.73_m2} Normal >60 [facility] Comment on above: Result Comment: mL/m in/1.73m2 CKD-EPI Creatinine Equation (2020) Performed By: #### L 509.6001, L3410.9992, L501.5200, L500.2500 #### [facility] [address] [place], [address] Glucose [Mass/Vol] 105 mg/dL High 70-99 [facility] Comment on above: Performed By: #### L 509.6001, L3410.9992, L501.5200, L500.2500 #### [facility] [address] [place], [address] Potassium [Moles/Vol] 4.0 mmol/L Normal 3.3-5.[address] [facility] Comment on above: Performed By: #### L 509.6001, L3410.9992, L501.5200, L500.2500 #### [facility] [address] [place], [address] Sodium [Moles/Vol] 137 mmol/L Normal 133-145 [facility] Comment on above: Performed By: #### L 509.6001, L3410.9992, L501.5200, L500.2500 #### [facility] [address] [place], [address] Urea nitrogen [Mass/Vol] 23 mg/dL High 4-19 [facility] Comment on above: Performed By: #### L 509.6001, L3410.9992, L501.5200, L500.2500 #### [facility] [place], [address] Carbon dioxide, total [Moles /volume] in Central venous bloodOrdered By: Tony Kay on 05-02-2025 CO2 [Moles/Vol] 23.7 mmol/L 21.0-32.0 [facility] Chloride assayOrdered By: Diego Kay on 05-02-2025 Chloride [Moles/Vol] 102 mmol/L 98-108 [facility] Glomerular filtration rate ( GFR) estimation/1.73 sq m using serum, plasma, or whole bOrdered By: Tony Kay on 05-02-2025 GFR/1.73 sq M.predicted among non-blacks MDRD (S/P/Bld) [Vol rate/Area] 64 mL/min/{1.73_m2} >60 [facility] Comment on above: mL/min/1.73m2 CKD-EP I Creatinine Equation (2020) Potassium measurement (mass/ volume)Ordered By: Tony Kay on 05-02-2025 Potassium (Unsp spec) [Mass/Vol] 4.0 mmol/L 3.3-5.1 [facility] Serum creatinine measurement (mass/volume)Ordered By: Tony Kay on 05-02-2025 Creatinine [Mass/Vol] 1.22 mg/dL High 0.70-1.[address] [facility] Serum glucose measurement (m ass/volume)Ordered By: Tony Kay on 05-02-2025 Glucose [Mass/Vol] 105 mg/dL High 70-99 [facility] Serum or plasma calcium tracy urement (mass/volume)Ordered By: Tony Kay on 05-02-2025 Calcium [Mass/Vol] 8.9 mg/dL 7.6-11.0 [facility] Serum or plasma urea nitroge n measurement (mass/volume)Ordered By: Tony Kay on 05-02-2025 Urea nitrogen [Mass/Vol] 23 mg/dL High 4-19 [facility] Sodium levelOrdered By: Tony Kay on 05-02-2025 Sodium [Moles/Vol] 137 mmol/L 133-145 [facility] Basic Metabolic Profile (BMP )on 04-29-2025 BUN/CRE 21.3 RATIO High 10-20 [facility] Comment on above: Order Comment: Order Date: 04/28/25Order Info: 666-10 - BMPOrder Info: - MGOrder Info: 782-10 - PSAD Performed By: #### L 509.6001, L3410.9992, L501.5200, L500.2500 #### [facility] [address] [place], [address] Calcium [Mass/Vol] 9.3 mg/dL Normal 7.6-11.0 [facility] Comment on above: Order Comment: Order Date: 04/28/25Order Info: 666-10 - BMPOrder Info: - MGOrder Info: 782-10 - PSAD Performed By: #### L 509.6001, L3410.9992, L501.5200, L500.2500 #### [facility] [address] [place], [address] Chloride [Moles/Vol] 106 mmol/L Normal 98-108 [facility] Comment on above: Order Comment: Order Date: 04/28/25Order Info: 666-10 - BMPOrder Info: MGOrder Info: 782-10 - PSAD Performed By: #### L 509.6001, L3410.9992, L501.5200, L500.2500 #### [facility] [address] [place], [address] CO2 [Moles/Vol] 24.1 mmol/L Normal 21.0-32.0 [facility] Comment on above: Order Comment: Order Date: 04/28/25Order Info: 666-10 - BMPOrder Info: MGOrder Info: 782-10 - PSAD Performed By: #### L 509.6001, L3410.9992, L501.5200, L500.2500 #### [facility] [address] [place], [address] Creatinine [Mass/Vol] 1.28 mg/dL High 0.70-1.[address] [facility] Comment on above: Order Comment: Order Date: 04/28/25Order Info: 666- - BMPOrder Info: 87870-7 - MGOrder Info: 782- - PSAD Performed By: #### L 509.6001, L3410.9992, L501.5200, L500.2500 #### [facility] [address] [place], [address] GAP 12 Normal 5-15 [facility] Comment on above: Order Comment: Order Date: 04/28/25Order Info: 666-10 - BMPOrder Info: - MGOrder Info: 782-10 - PSAD Performed By: #### L 509.6001, L3410.9992, L501.5200, L500.2500 #### [facility] [address] [place], [address] GFR/1.73 sq M.predicted among non-blacks MDRD (S/P/Bld) [Vol rate/Area] 61 mL/min/{1.73_m2} Normal >60 [facility] Comment on above: Order Comment: Order Date: 04/28/25Order Info: 666-10 - BMPOrder Info: - MGOrder Info: 782- - PSAD Result Comment: mL/m in/1.73m2 CKD-EPI Creatinine Equation (2020) Performed By: #### L 509.6001, L3410.9992, L501.5200, L500.2500 #### [facility] [address] [place], [address] Glucose [Mass/Vol] 122 mg/dL High 70-99 [facility] Comment on above: Order Comment: Order Date: 04/28/25Order Info: 666-10 - BMPOrder Info: - MGOrder Info: 782- - PSAD Performed By: #### L 509.6001, L3410.9992, L501.5200, L500.2500 #### [facility] [address] [place], [address] Potassium [Moles/Vol] 5.0 mmol/L Normal 3.3-5.[address] [facility] Comment on above: Order Comment: Order Date: 04/28/25Order Info: 666-10 - BMPOrder Info: 89538-2 - MGOrder Info: 782-10 - PSAD Performed By: #### L 509.6001, L3410.9992, L501.5200, L500.2500 #### [facility] [address] [place], [address] Sodium [Moles/Vol] 142 mmol/L Normal 133-145 [facility] Comment on above: Order Comment: Order Date: 04/28/25Order Info: 666-10 - BMPOrder Info: - MGOrder Info: 782-10 - PSAD Performed By: #### L 509.6001, L3410.9992, L501.5200, L500.2500 #### [facility] [address] [place], [address] Urea nitrogen [Mass/Vol] 27 mg/dL High 4-19 [facility] Comment on above: Order Comment: Order Date: 04/28/25Order Info: 666-10 - BMPOrder Info: - MGOrder Info: 782-10 - PSAD Performed By: #### L 509.6001, L3410.9992, L501.5200, L500.2500 #### [facility] [address] [place], [address] Magnesiumon 04-29-2025 Magnesium [Mass/Vol] 2.5 mg/dL High 1.5-2.2 [facility] Comment on above: Order Comment: Order Date: 04/28/25Order Info: 666-10 - BMPOrder Info: 39570-8 - MGOrder Info: 782-10 - PSAD Performed By: #### L 509.6001, L3410.9992, L501.5200, L500.2500 #### [facility] [address] [place], [place], [address] Magnesium measurement (mass/ volume)Ordered By: Tony Kay on 04-29-2025 Magnesium (Unsp spec) [Mass/Vol] 2.5 mg/dL High 1.5-2.2 [facility] PSA,Total- Diagnosticon 04-08 PSA, DIAGNOSTIC 4.34 ng/mL High 0.00-4.00 [facility] Comment on above: Order Comment: Order Date: 04/28/25Order Info: 06- - BMPOrder Info: MGOrder Info: 782-10 - PSAD Result Comment: This test was performed using the [employer] tPSA method. Measured values of a patient??sample can vary depending on the testing procedure used. PSA values determined on patient samples by different testing procedures cannot be used interchangeably. If there is a change in PSA assays while monitoring therapy, sequential testing should be performed to confirm baseline values. Performed By: #### L 509.6001, L3410.9992, L501.5200, L500.2500 #### [facility] [address] [place], [place], [address] Plasma renin activityOrdered By: Tony Kay on 04-29-2025 Renin (P) [Catalytic activity/Vol] 1.733 ng/mL/hr 0.167-5.38 0 [facility] Vitamin D,25 Hydroxyon 04-29 Vitamin D 25-OH 46.1 ng/mL Normal 30-100 [facility] Comment on above: Order Comment: Order Date: 04/28/25 Order Info: 0667-1 - BMP Order Info: - MG Order Info: 782-10 - PSAD Result Comment: Mercedez min D Status Deficiency: <20 ng/mL (50nmol/L) Insufficiency: 20-30 ng/mL (50-75 nmol/L) Sufficiency: 30-100 ng/mL (75-250 nmol/L) Toxicity: >100 ng/mL (>250 nmol/L) Performed By: #### L 3400.4000, L3300.1100, L506.1001 #### [facility] [address] [place], [address] Basic Metabolic Profile (BMP )on 04-20-2025 BUN/CRE 20.6 RATIO High 10-20 [facility] Comment on above: Performed By: #### L 509.6001, L3410.9992, L501.5200, L500.2500 #### [facility] [address] [place], [address] Calcium [Mass/Vol] 8.9 mg/dL Normal 7.6-11.0 [facility] Comment on above: Performed By: #### L 509.6001, L3410.9992, L501.5200, L500.2500 #### [facility] [address] [place], [address] Chloride [Moles/Vol] 107 mmol/L Normal 98-108 [facility] Comment on above: Performed By: #### L 509.6001, L3410.9992, L501.5200, L500.2500 #### [facility] [address] [place], [address] CO2 [Moles/Vol] 22.9 mmol/L Normal 21.0-32.0 [facility] Comment on above: Performed By: #### L 509.6001, L3410.9992, L501.5200, L500.2500 #### [facility] [address] [place], [address] Creatinine [Mass/Vol] 1.22 mg/dL High 0.70-1.[address] [facility] Comment on above: Performed By: #### L 509.6001, L3410.9992, L501.5200, L500.2500 #### [facility] [address] [place], [address] GAP 12 Normal 5-15 [facility] Comment on above: Performed By: #### L 509.6001, L3410.9992, L501.5200, L500.2500 #### [facility] [address] [place], [address] GFR/1.73 sq M.predicted among non-blacks MDRD (S/P/Bld) [Vol rate/Area] 64 mL/min/{1.73_m2} Normal >60 [facility] Comment on above: Result Comment: mL/m in/1.73m2 CKD-EPI Creatinine Equation (2020) Performed By: #### L 509.6001, L3410.9992, L501.5200, L500.2500 #### [facility] [address] [place], [address] Glucose [Mass/Vol] 116 mg/dL High 70-99 [facility] Comment on above: Performed By: #### L 509.6001, L3410.9992, L501.5200, L500.2500 #### [facility] [address] [place], [address] Potassium [Moles/Vol] 4.1 mmol/L Normal 3.3-5.[address] [facility] Comment on above: Performed By: #### L 509.6001, L3410.9992, L501.5200, L500.2500 #### [facility] [address] [place], [address] Sodium [Moles/Vol] 141 mmol/L Normal 133-145 [facility] Comment on above: Performed By: #### L 509.6001, L3410.9992, L501.5200, L500.2500 #### [facility] [address] [place], [address] Urea nitrogen [Mass/Vol] 25 mg/dL High 4-19 [facility] Comment on above: Performed By: #### L 509.6001, L3410.9992, L501.5200, L500.2500 #### [facility] [address] [place], [address] Coronary Angiography CTon Coronary Angiography CT [facility] Services [address] [place] [address] 04/20/25 1232 MR#: [id number] Acct: [id number] Name: BALTAZAR BAY Rep #: [id number] : 1955 69 From: Jere Fields MD PCP: Dr. Tony Kay MD Status:REG REF Y Location: CT Calcium Scoring Date of Study:: 04/20/25 Indications Indications: Chest pain Coronary Calcium Scoring: High-resolution Computed Tomographic imaging of the chest was performed on [04/20/25 ], with particular attention paid to the coronary arteries. Images from the examination were analyzed for the presence and extent of coronary artery calcification , using coronary calcium quantification software. The patient tolerated the procedure well and there were no complications. The results of the coronary calcification analysis are provided below. Findings Coronary Artery Left Main (LM): 0 Left Anterior Descending (LAD): 129 Left Circumflex (LCX): 4.8 Right Coronary Artery (RCA): 56.8 Total Agatston Score: 190.6 Percentile Rankin-75% Calcium Scoring Interpretation: Different methods to categorize the overall amount of coronary plaque. Overall amount CAC SIS Visual of coronary plaque P1 Mild -100 <2 1-2 vessels with mild amount of plaque P2 Moderate 101-300 3-4 1-2 vessels with moderate amount, 3 vessels with mild amount of plaque P3 Severe 301-999 5-7 3 vessels with moderate amount, 1 vessel with severe amount of plaque P4 Extensive >1000 >8 2-3 vessels with severe amount of plaque Calcium Score: Moderate: 1-2 vessels w/moderate amt, 3 vessels w/mild amt of plaque Conclusion: Moderate two-vessel atherosclerotic plaquing noted 04/20/25 1234 Date Jere Fields MD Cosigner Signature (if applicable): Date CC: Dr. Jere Fields MD; Dr. Tony Kay MD Signed Normal [facility] Limited Chest CT Cardiac Onl yon 04-20-[address] Cardiac Only [facility] Imaging Services [address] [place] [address] Cardiac Only MR#: [id number] Acct: [id number] Name: BALTAZAR BAY Rep #: [id number] : 1955 M 69 From: Unruly shane MD PCP: Dr. Tony Kay MD Status: REG REF Study: Limited Chest CT Cardiac Only Date of Exam: Exam# [id number] Ordering Dr: Tony Kay MD PROCEDURE: LIMITED CHEST CT CARDIAC ONLY 04/20/2025 REASON FOR EXAM: ATYPICAL CHEST PAIN TECHNIQUE: LIMITED CHEST CT CARDIAC ONLY CONTRAST: None One or more dose reduction techniques were used (e.g., Automated exposure control, adjustment of the mA and/or kV according to patient size, use of iterative reconstruction technique). RADIATION DOSE SUMMARY: CTDlvol: 12.19 mGy DLP: 219.42 mGycm COMPARISON: None FINDINGS: Mild atherosclerotic calcification of the aortic arch. Coronary artery calcification. The heart is nonenlarged. No pericardial thickening. Increased linear markings at the lung bases suggestive of bibasilar scarring. CT/Limited Chest CT Cardiac Only IMPRESSION: Coronary artery calcification. Reading Location: [place] [address] CC: Dr. Tony Kay MD Clinical Product Specialist: Signed Normal [facility] Anion gap in Serum or Plasma Ordered By: Tony Kay on 04-06-2025 Anion gap [Moles/Vol] 11 mmol/L 5-[address] [facility] BUN/creatinine ratioOrdered By: Tony Kay on 04-06-2025 Urea nitrogen/Creatinine [Mass ratio] 19.2 mg/mg 10- [facility] Basic Metabolic Profile (BMP )on 04-06-2025 BUN/CRE 19.2 RATIO Normal -20 [facility] Comment on above: Performed By: #### L 500.2500 ####[facility] [address] [place], [address] Calcium [Mass/Vol] 9.3 mg/dL Normal 7.6-11.0 [facility] Comment on above: Performed By: #### L 500.2500 ####[facility] [address] [place], [address] Chloride [Moles/Vol] 105 mmol/L Normal 98-108 [facility] Comment on above: Performed By: #### L 500.2500 ####[facility] [address] [place], [address] CO2 [Moles/Vol] 24.4 mmol/L Normal 21.0-32.0 [facility] Comment on above: Performed By: #### L 500.2500 ####[facility] [address] [place], [address] Creatinine [Mass/Vol] 1.18 mg/dL Normal 0.70-1.[address] [facility] Comment on above: Performed By: #### L 500.2500 ####[facility] [address] [place], [address] GAP 11 Normal 5-15 [facility] Comment on above: Performed By: #### L 500.2500 ####[facility] [address] [place], [address] GFR/1.73 sq M.predicted among non-blacks MDRD (S/P/Bld) [Vol rate/Area] 67 mL/min/{1.73_m2} Normal >60 [facility] Comment on above: Result Comment: mL/m in/1.73m2 CKD-EPI Creatinine Equation (2020) Performed By: #### L 500.2500 ####[facility] [address] [place], [address] Glucose [Mass/Vol] 124 mg/dL High 70-99 [facility] Comment on above: Performed By: #### L 500.2500 ####[facility] [address] [place], [address] Potassium [Moles/Vol] 4.6 mmol/L Normal 3.3-5.[address] [facility] Comment on above: Performed By: #### L 500.2500 ####[facility] [address] [place], [address] Sodium [Moles/Vol] 141 mmol/L Normal 133-145 [facility] Comment on above: Performed By: #### L 500.2500 ####[facility] [address] [place], [address] Urea nitrogen [Mass/Vol] 23 mg/dL High 4-19 [facility] Comment on above: Performed By: #### L 500.2500 ####[facility] [address] [place], [address] Carbon dioxide, total [Moles /volume] in Central venous bloodOrdered By: Tony Kay on 04-06-2025 CO2 [Moles/Vol] 24.4 mmol/L 21.0-32.0 [facility] Chloride assayOrdered By: Diego Kay on 04-06-2025 Chloride [Moles/Vol] 105 mmol/L 98-108 [facility] Glomerular filtration rate ( GFR) estimation/1.73 sq m using serum, plasma, or whole bOrdered By: Tony Kay on 04-06-2025 GFR/1.73 sq M.predicted among non-blacks MDRD (S/P/Bld) [Vol rate/Area] 67 mL/min/{1.73_m2} >60 [facility] Comment on above: mL/min/1.73m2 CKD-EP I Creatinine Equation (2020) Potassium measurement (mass/ volume)Ordered By: Tony Kay on 04-06-2025 Potassium (Unsp spec) [Mass/Vol] 4.6 mmol/L 3.3-5.1 [facility] Serum creatinine measurement (mass/volume)Ordered By: Tony Kay on 04-06-2025 Creatinine [Mass/Vol] 1.18 mg/dL 0.70-1.[address] [facility] Serum glucose measurement (m ass/volume)Ordered By: Tony Kay on 04-06-2025 Glucose [Mass/Vol] 124 mg/dL High 70-99 [facility] Serum or plasma calcium tracy urement (mass/volume)Ordered By: Tony Kay on 04-06-2025 Calcium [Mass/Vol] 9.3 mg/dL 7.6-11.0 [facility] Serum or plasma urea nitroge n measurement (mass/volume)Ordered By: Tony Kay on 04-06-2025 Urea nitrogen [Mass/Vol] 23 mg/dL High 4-19 [facility] Sodium levelOrdered By: Tony Kay on 04-06-2025 Sodium [Moles/Vol] 141 mmol/L 133-145 [facility] Lyme Screen W/Reflex WBon LYME SCREEN Ab Negative Normal Negative [facility] Comment on above: Result Comment: Lyme antibodies not detected. Reflex testing is not indicated. No laboratory evidence of infection with B. burgdorferi (Lyme disease). Negative results may occur in patients recently infected (less than or equal to 14 days) with B. burgdorferi. If recent infection is suspected, repeat testing on a new sample collected in 7 to 14 days is recommended. Performed at: - [address] [id number] Template Checker: Hesham Christopher PhD, Phone: [phone] Performed By: #### L 509.600, L3410.9997, C778.7446, Q773.2875 #### [facility] [address] [place], [address] Chest PA and Lateralon 06-24 -2025 Chest PA and Lateral [facility] Imaging Services [address] [place] [address] Chest PA and Lateral MR#: [id number] Acct: [id number] Name: BALTAZAR BAY Rep #: [id number] : 1955 M 69 From: Tom Henry PCP: Dr. Tony Kay MD Status: REG CLI Study: Chest PA and Lateral Date of Exam: 03/31/25 Exam# [id number] Ordering Dr: Tony Kay MD PROCEDURE: CHEST PA AND LATERAL 03/31/2025 REASON FOR EXAM: CHEST PAIN TECHNIQUE: CHEST PA AND LATERAL COMPARISON: Chest x-ray of 03/10/2025. RAD/Chest PA and Lateral IMPRESSION: Lungs appear clear of acute disease, and unchanged. No pleural effusion or pneumothorax is noted. The cardiomediastinal silhouette is stable, without evidence of cardiomegaly. Mild thoracic spine degenerative changes are noted. No evidence of acute cardiopulmonary disease. Reading Location: [place] [address] CC: Dr. Tony Kay MD Clinical Product Specialist: Signed Normal [facility] Anion gap in Serum or Plasma Ordered By: Tony Kay on 03-30-2025 Anion gap [Moles/Vol] 11 mmol/L - [facility] BUN/creatinine ratioOrdered By: Tony Kay on 03-30-2025 Urea nitrogen/Creatinine [Mass ratio] 19.8 mg/mg - [facility] Basic Metabolic Profile (BMP )on 03-30-2025 BUN/CRE 19.8 RATIO Normal - [facility] Comment on above: Performed By: #### L 500.2500 ####[facility] [address] [place], [address] Calcium [Mass/Vol] 9.3 mg/dL Normal 7.6-11.0 [facility] Comment on above: Performed By: #### L 500.2500 ####[facility] [address] [place], [address] Chloride [Moles/Vol] 104 mmol/L Normal 98-108 [facility] Comment on above: Performed By: #### L 500.2500 ####[facility] [address] [place], [address] CO2 [Moles/Vol] 26.2 mmol/L Normal 21.0-32.0 [facility] Comment on above: Performed By: #### L 500.2500 ####[facility] [address] [place], [address] Creatinine [Mass/Vol] 1.22 mg/dL High 0.70-1.[address] [facility] Comment on above: Performed By: #### L 500.2500 ####[facility] [address] [place], [address] GAP 11 Normal 5-15 [facility] Comment on above: Performed By: #### L 500.2500 ####[facility] [address] [place], [address] GFR/1.73 sq M.predicted among non-blacks MDRD (S/P/Bld) [Vol rate/Area] 64 mL/min/{1.73_m2} Normal >60 [facility] Comment on above: Result Comment: mL/m in/1.73m2 CKD-EPI Creatinine Equation (2020) Performed By: #### L 500.2500 ####[facility] [address] [place], [address] Glucose [Mass/Vol] 122 mg/dL High 70-99 [facility] Comment on above: Performed By: #### L 500.2500 ####[facility] [address] [place], [address] Potassium [Moles/Vol] 4.6 mmol/L Normal 3.3-5.[address] [facility] Comment on above: Performed By: #### L 500.2500 ####[facility] [address] [place], [place], [address] Sodium [Moles/Vol] 141 mmol/L Normal 133-145 [facility] Comment on above: Performed By: #### L 500.2500 ####[facility] [address] [place], [place], [address] Urea nitrogen [Mass/Vol] 24 mg/dL High 4-19 [facility] Comment on above: Performed By: #### L 500.2500 ####[facility] [address] [place], [place], [address] Carbon dioxide, total [Moles /volume] in Central venous bloodOrdered By: Tony Kay on 03-30-2025 CO2 [Moles/Vol] 26.2 mmol/L 21.0-32.0 [facility] Chloride assayOrdered By: Diego Kay on 03-30-2025 Chloride [Moles/Vol] 104 mmol/L 98-108 [facility] Glomerular filtration rate ( GFR) estimation/1.73 sq m using serum, plasma, or whole bOrdered By: Tony Kay on 03-30-2025 GFR/1.73 sq M.predicted among non-blacks MDRD (S/P/Bld) [Vol rate/Area] 64 mL/min/{1.73_m2} >60 [facility] Comment on above: mL/min/1.73m2 CKD-EP I Creatinine Equation (2020) Potassium measurement (mass/ volume)Ordered By: Tony Kay on 03-30-2025 Potassium (Unsp spec) [Mass/Vol] 4.6 mmol/L 3.3-5.1 [facility] Serum creatinine measurement (mass/volume)Ordered By: Tony Kay on 03-30-2025 Creatinine [Mass/Vol] 1.22 mg/dL High 0.70-1.[address] [facility] Serum glucose measurement (m ass/volume)Ordered By: Tony Kay on 03-30-2025 Glucose [Mass/Vol] 122 mg/dL High 70-99 [facility] Serum or plasma calcium tracy urement (mass/volume)Ordered By: Tony Kay on 03-30-2025 Calcium [Mass/Vol] 9.3 mg/dL 7.6-11.0 [facility] Serum or plasma urea nitroge n measurement (mass/volume)Ordered By: Tony Kay on 03-30-2025 Urea nitrogen [Mass/Vol] 24 mg/dL High 01-24 [facility] Sodium levelOrdered By: Tony Kay on 03-30-2025 Sodium [Moles/Vol] 141 mmol/L 133-145 [facility] Basic Metabolic Profile (BMP )on 03-26-2025 BUN/CRE 22.3 RATIO High 10- [facility] Comment on above: Performed By: #### L 509.6001, L3410.9992, L501.5200, L500.2500 #### [facility] [address] [place], [address] Calcium [Mass/Vol] 9.4 mg/dL Normal 7.6-11.0 [facility] Comment on above: Performed By: #### L 509.6001, L3410.9992, L501.5200, L500.2500 #### [facility] [address] [place], [address] Chloride [Moles/Vol] 97 mmol/L Low 98-108 [facility] Comment on above: Performed By: #### L 509.6001, L3410.9992, L501.5200, L500.2500 #### [facility] [address] [place], [address] CO2 [Moles/Vol] 29.8 mmol/L Normal 21.0-32.0 [facility] Comment on above: Performed By: #### L 509.6001, L3410.9992, L501.5200, L500.2500 #### [facility] [address] [place], [address] Creatinine [Mass/Vol] 1.18 mg/dL Normal 0.70-1.[address] [facility] Comment on above: Performed By: #### L 509.6001, L3410.9992, L501.5200, L500.2500 #### [facility] [address] [place], [address] GAP 12 Normal 5-15 [facility] Comment on above: Performed By: #### L 509.6001, L3410.9992, L501.5200, L500.2500 #### [facility] [address] [place], [address] GFR/1.73 sq M.predicted among non-blacks MDRD (S/P/Bld) [Vol rate/Area] 67 mL/min/{1.73_m2} Normal >60 [facility] Comment on above: Result Comment: mL/m in/1.73m2 CKD-EPI Creatinine Equation (2020) Performed By: #### L 509.6001, L3410.9992, L501.5200, L500.2500 #### [facility] [address] [place], [address] Glucose [Mass/Vol] 131 mg/dL High 70-99 [facility] Comment on above: Performed By: #### L 509.6001, L3410.9992, L501.5200, L500.2500 #### [facility] [address] [place], [address] Potassium [Moles/Vol] 3.3 mmol/L Normal 3.3-5.[address] [facility] Comment on above: Result Comment: Hemo lysis present, Results??could be affected. ?? Performed By: #### L 509.6001, L3410.9992, L501.5200, L500.2500 #### [facility] [address] [place], [address] Sodium [Moles/Vol] 139 mmol/L Normal 133-145 [facility] Comment on above: Performed By: #### L 509.6001, L3410.9992, L501.5200, L500.2500 #### [facility] [address] [place], [address] Urea nitrogen [Mass/Vol] 26 mg/dL High 01-24 [facility] Comment on above: Performed By: #### L 509.6001, L3410.9992, L501.5200, L500.2500 #### [facility] [address] [place], [address] L3410.9992on 03-26-2025 [facility] Misc. COMMENT Normal . [facility] Comment on above: Order Comment: Order Date: 03/10/25Order Info: 0453-1 - DMNT3Ykwflade: paraneoplastic [id number] PANEL SERUM RF Result Comment: Test Ordered: [id number] Paraneoplastic Ab Test(s) 547373-Lqew-Ib Ab; 976990-Nrhl-Bn Ab; 806944- Antineuronal nuclear Ab Type 3; 607227- STOCK BROKER SUPERVISOR Type-1 (Anti-Yo) Ab; 653367- Purkinje Cell Cyto Ab Type 2; 517059- Purkinje Cell Cyto Ab Type Tr; 894553-Iiitsolqhsz Antibody; 763025-GFXK-8 IgG; 308935-GTFY-3; 291226- CASPR2 Antibody,Cell-based IFA; 682089- LGI1 Antibody, Cell-based IFA was developed and [...] Type 3 Negative BN Reference Range: Negative STOCK BROKER SUPERVISOR Type-1 (Anti-Yo) Ab Negative BN Reference Range: [...] Negative BN Reference Range: Negative Performed at: BN - [facility] [id number] Template Checker: Carlos Sim MD, Phone: [phone] Performed at: - [address] [id number] Template Checker: Hesham Christopher PhD, Phone: [phone] Performed By: #### L 501.6710, L300.8000, L500.2500, L3410.9992 ####[facility] [address] [facility] [place], [place], [address] CRP, High Sensitivity 451803 on 03-24-2025 CRP, HIGH SENS 9.33 mg/L High 0.00-3.00 [facility] Comment on above: Result Comment: Rela tive Risk for Future Cardiovascular Event Low <1.00 Average 1.00 - 3.00 High >3.00 Performed By: #### L 509.6001, L3410.9992, L501.5200, L500.2500 #### [facility] [address] [facility] [place], [place], [address] L3410.9992on 03-17-2025 [facility] Normal . [facility] Comment on above: Order Comment: 04180 0CORTISOL FREE SERUM FROZEN Result Comment: Test Ordered: [id number] CBG with Free Cortisol Kendall.Bind.Glob.(CBG) 2.2 mg/dL [...] 8:00 am: 2.3 - 9.5 Performed at: [facility] [address] [place] [id number] Template Checker: Evan Savage MD, Phone: [phone] Performed at: [address] [id number] Template Checker: Hesham Christopher PhD, Phone: [phone] Performed By: #### L 509.6001, L3410.9992, L501.5200, L500.2500 #### [facility] [address] [place], [place], [address] L3410.9992on 03-16-2025 [facility] Normal . [facility] Comment on above: Order Comment: 30703 8DEXAMETHASONE SERUM FREEZE Result Comment: Test Ordered: 412903 Dexamethasone, Serum Dexamethasone, Serum <30 ng/dL ES Reference Range: . This test was developed and its performance characteristics determined by [employer]. It has not been cleared or approved by the Food and Drug Administration. Reference Range: Adults baseline: <30 8:00 AM following 1 mg dexamethasone previous evenin - 295 8:00 AM following 8 mg dexamethasone (4 x 2 mg doses) previous day: 1600 - 2850 Performed at: [facility] [address] [place] [id number] Template Checker: Evan Savage MD, Phone: [phone] Performed at: [address] [id number] Template Checker: Hesham Christopher PhD, Phone: [phone] Performed By: #### L 509.6001, L3410.9992, L501.5200, L500.2500 #### [facility] [address] [place], [address] Anion gap in Serum or Plasma Ordered By: Tony Kay on 03-13-2025 Anion gap [Moles/Vol] 10 mmol/L 5-[address] [facility] BUN/creatinine ratioOrdered By: Tony Rahul on 03-13-2025 Urea nitrogen/Creatinine [Mass ratio] 20.7 mg/mg High 10-20 [facility] Basic Metabolic Profile (BMP )on 03-13-2025 BUN/CRE 20.7 RATIO High 10-20 [facility] Comment on above: Performed By: #### L 509.6001, L3410.9992, L501.5200, L500.2500 #### [facility] [address] [place], [address] Calcium [Mass/Vol] 9.6 mg/dL Normal 7.6-11.0 [facility] Comment on above: Performed By: #### L 509.6001, L3410.9992, L501.5200, L500.2500 #### [facility] [address] [place], [address] Chloride [Moles/Vol] 105 mmol/L Normal 98-108 [facility] Comment on above: Performed By: #### L 509.6001, L3410.9992, L501.5200, L500.2500 #### [facility] [address] [place], [address] CO2 [Moles/Vol] 25.2 mmol/L Normal 21.0-32.0 [facility] Comment on above: Performed By: #### L 509.6001, L3410.9992, L501.5200, L500.2500 #### [facility] [address] [place], [address] Creatinine [Mass/Vol] 1.29 mg/dL High 0.70-1.[address] [facility] Comment on above: Performed By: #### L 509.6001, L3410.9992, L501.5200, L500.2500 #### [facility] [address] [place], [address] GAP 10 Normal 5-15 [facility] Comment on above: Performed By: #### L 509.6001, L3410.9992, L501.5200, L500.2500 #### [facility] [address] [place], [address] GFR/1.73 sq M.predicted among non-blacks MDRD (S/P/Bld) [Vol rate/Area] 60 mL/min/{1.73_m2} Normal >60 [facility] Comment on above: Result Comment: mL/m in/1.73m2 CKD-EPI Creatinine Equation (2020) Performed By: #### L 509.6001, L3410.9992, L501.5200, L500.2500 #### [facility] [address] [place], [address] Glucose [Mass/Vol] 123 mg/dL High 70-99 [facility] Comment on above: Performed By: #### L 509.6001, L3410.9992, L501.5200, L500.2500 #### [facility] [address] [place], [address] Potassium [Moles/Vol] 4.8 mmol/L Normal 3.3-5.[address] [facility] Comment on above: Performed By: #### L 509.6001, L3410.9992, L501.5200, L500.2500 #### [facility] [address] [place], [address] Sodium [Moles/Vol] 141 mmol/L Normal 133-145 [facility] Comment on above: Performed By: #### L 509.6001, L3410.9992, L501.5200, L500.2500 #### [facility] [address] [place], [address] Urea nitrogen [Mass/Vol] 27 mg/dL High 4-19 [facility] Comment on above: Performed By: #### L 509.6001, L3410.9992, L501.5200, L500.2500 #### [facility] [address] [place], [address] Carbon dioxide, total [Moles /volume] in Central venous bloodOrdered By: Tony Kay on 03-13-2025 CO2 [Moles/Vol] 25.2 mmol/L 21.0-32.0 [facility] Chloride assayOrdered By: Diego Kay on 03-13-2025 Chloride [Moles/Vol] 105 mmol/L 98-108 [facility] Glomerular filtration rate ( GFR) estimation/1.73 sq m using serum, plasma, or whole bOrdered By: Tony Kay on 03-13-2025 GFR/1.73 sq M.predicted among non-blacks MDRD (S/P/Bld) [Vol rate/Area] 60 mL/min/{1.73_m2} >60 [facility] Comment on above: mL/min/1.73m2 CKD-EP I Creatinine Equation (2020) Potassium measurement (mass/ volume)Ordered By: Tony Kay on 03-13-2025 Potassium (Unsp spec) [Mass/Vol] 4.8 mmol/L 3.3-5.1 [facility] Serum creatinine measurement (mass/volume)Ordered By: Tony Kay on 03-13-2025 Creatinine [Mass/Vol] 1.29 mg/dL High 0.70-1.[address] [facility] Serum glucose measurement (m ass/volume)Ordered By: Tony Kay on 03-13-2025 Glucose [Mass/Vol] 123 mg/dL High 70-99 [facility] Serum or plasma calcium tracy urement (mass/volume)Ordered By: Tony Kay on 03-13-2025 Calcium [Mass/Vol] 9.6 mg/dL 7.6-11.0 [facility] Serum or plasma urea nitroge n measurement (mass/volume)Ordered By: Tony Kay on 03-13-2025 Urea nitrogen [Mass/Vol] 27 mg/dL High 4-19 [facility] Sodium levelOrdered By: Tony Kay on 03-13-2025 Sodium [Moles/Vol] 141 mmol/L 133-145 [facility] Angiotensin Convert Enzymeon 03-11-2025 ANGIOT-CONV.ENZ 33 U/L Normal 14-82 [facility] Comment on above: Order Comment: AFTER MED Result Comment: Perf ormed at: - [facility] [address] [id number] Template Checker: Hesham Christopher PhD, Phone: [phone] Performed By: #### L 509.6001, L3410.9992, L501.5200, L500.2500 #### [facility] [address] [place], [address] Anion gap in Serum or Plasma Ordered By: Tony Kay on 03-10-2025 Anion gap [Moles/Vol] 13 mmol/L 5-[address] [facility] BUN/creatinine ratioOrdered By: Tony Kay on 03-10-2025 Urea nitrogen/Creatinine [Mass ratio] 20.7 mg/mg High 10-20 [facility] Basic Metabolic Profile (BMP )on 03-10-2025 BUN/CRE 20.7 RATIO High 10-20 [facility] Comment on above: Order Comment: Order Date: 03/10/25Order Info: 0667-1 - BMPOrder Info: 59486-7 - CRPparaneoplastic panel Performed By: #### L 501.6710, L300.8000, L500.2500, L3410.9992 ####[facility] [address] [place], [address] Calcium [Mass/Vol] 9.2 mg/dL Normal 7.6-11.0 [facility] Comment on above: Order Comment: Order Date: 03/10/25Order Info: 0667-1 - BMPOrder Info: 96672-7 - CRPparaneoplastic panel Performed By: #### L 501.6710, L300.8000, L500.2500, L3410.9992 ####[facility] [address] [place], [address] Chloride [Moles/Vol] 100 mmol/L Normal 98-108 [facility] Comment on above: Order Comment: Order Date: 03/10/25Order Info: 06 - BMPOrder Info: [id number] - CRPparaneoplastic panel Performed By: #### L 501.6710, L300.8000, L500.2500, L3410.9992 ####[facility] [address] [place], [address] CO2 [Moles/Vol] 26.6 mmol/L Normal 21.0-32.0 [facility] Comment on above: Order Comment: Order Date: 03/10/25Order Info: 666-10 - BMPOrder Info: [id number] - CRPparaneoplastic panel Performed By: #### L 501.6710, L300.8000, L500.2500, L3410.9992 ####[facility] [address] [place], [address] Creatinine [Mass/Vol] 1.06 mg/dL Normal 0.70-1.[address] [facility] Comment on above: Order Comment: Order Date: 03/10/25Order Info: 666-10 - BMPOrder Info: [id number] - CRPparaneoplastic panel Performed By: #### L 501.6710, L300.8000, L500.2500, L3410.9992 ####[facility] [address] [place], [address] GAP 13 Normal 5-15 [facility] Comment on above: Order Comment: Order Date: 03/10/25Order Info: 06- - BMPOrder Info: [id number] - CRPparaneoplastic panel Performed By: #### L 501.6710, L300.8000, L500.2500, L3410.9992 ####[facility] [address] [place], [address] GFR/1.73 sq M.predicted among non-blacks MDRD (S/P/Bld) [Vol rate/Area] 76 mL/min/{1.73_m2} Normal >60 [facility] Comment on above: Order Comment: Order Date: 03/10/25Order Info: 0667- - BMPOrder Info: [id number] - CRPparaneoplastic panel Result Comment: mL/m in/1.73m2 CKD-EPI Creatinine Equation (2020) Performed By: #### L 501.6710, L300.8000, L500.2500, L3410.9992 ####[facility] [address] [place], [address] Glucose [Mass/Vol] 118 mg/dL High 70-99 [facility] Comment on above: Order Comment: Order Date: 03/10/25Order Info: 666-10 - BMPOrder Info: [id number] - CRPparaneoplastic panel Performed By: #### L 501.6710, L300.8000, L500.2500, L3410.9992 ####[facility] [address] [place], [address] Potassium [Moles/Vol] 3.1 mmol/L Low 3.3-5.[address] [facility] Comment on above: Order Comment: Order Date: 03/10/25Order Info: 06- - BMPOrder Info: [id number] - CRPparaneoplastic panel Performed By: #### L 501.6710, L300.8000, L500.2500, L3410.9992 ####[facility] [address] [place], [address] Sodium [Moles/Vol] 139 mmol/L Normal 133-145 [facility] Comment on above: Order Comment: Order Date: 03/10/25Order Info: 0667- - BMPOrder Info: [id number] - CRPparaneoplastic panel Performed By: #### L 501.6710, L300.8000, L500.2500, L3410.9992 ####[facility] [address] [place], [address] Urea nitrogen [Mass/Vol] 22 mg/dL High 4-19 [facility] Comment on above: Order Comment: Order Date: 03/10/25Order Info: 0667-1 - BMPOrder Info: [id number] - CRPparaneoplastic panel Performed By: #### L 501.6710, L300.8000, L500.2500, L3410.9992 ####[facility] [address] [place], [address] C-reactive protein measureme nt by high sensitivity methodOrdered By: Tony Kay on 03-10-2025 C-reactive protein measurement by high sensitivity method 9.33 mg/L High 0.00-3.00 [facility] Comment on above: Relative Risk for Fu ture Cardiovascular Event Low <1.00 Average 1.00 - 3.00 High >3.00 CRPon 03-10-2025 C-REACTIVE PROT 16.20 mg/L High 0.0-3.0 [facility] Comment on above: Order Comment: Order Date: 03/10/25Order Info: 0667-1 - BMPOrder Info: [id number] - CRP Performed By: #### L 501.6710, L300.8000, L500.2500, L3410.9992 ####[facility] [address] [place], [address] Carbon dioxide, total [Moles /volume] in Central venous bloodOrdered By: Tony Kay on 03-10-2025 CO2 [Moles/Vol] 26.6 mmol/L 21.0-32.0 [facility] Chest PA and Lateralon 03-10 Chest PA and Lateral [facility] [address] [place] [address] Chest PA and Lateral MR#: [id number] Acct: [id number] Name: BALTAZAR BAY Rep #: [id number] : 1955 M 69 From: Toño Barnes MD PCP: Dr. Tony Kay MD Status: REG CLI Study: Chest PA and Lateral Date of Exam: 03/10/25 Exam# [id number] Ordering Dr: Tony Kay MD PROCEDURE: CHEST [...] evidence of acute cardiopulmonary pathology. Reading Location: [id number] CC: Dr. Tony Kay MD Clinical Product Specialist: Signed Normal [facility] Chloride assayOrdered By: Diego Kay on 03-10-2025 Chloride [Moles/Vol] 100 mmol/L 98-108 [facility] D-Dimer Quantitative (DVT/PE )on 03-10-2025 D-DIMER QUANT 0.38 FEU/ug/m Normal 0.27-0.49 [facility] Comment on above: Order Comment: Order Date: 03/10/25Order Info: [id number] - DDIMQ Result Comment: NORM AL D-Dimer level (<0.50) indicates no DVT or PE. Performed By: #### L 501.6710, L300.8000, L500.2500, L3410.9992 ####[facility] [address] [place], [place], [address] Glomerular filtration rate ( GFR) estimation/1.73 sq m using serum, plasma, or whole bOrdered By: Tony Kay on 03-10-2025 GFR/1.73 sq M.predicted among non-blacks MDRD (S/P/Bld) [Vol rate/Area] 76 mL/min/{1.73_m2} >60 [facility] Comment on above: mL/min/1.73m2 CKD-EP I Creatinine Equation (2020) L501.4021on 03-10-2025 Trop T High Sen 17 ng/L Normal <=22 [facility] Comment on above: Order Comment: Order Date: 03/10/25Order Info: 0667-1 - BMPOrder Info: [id number] - CRP Performed By: #### L 509.6001, L3410.9992, L501.5200, L500.2500 #### [facility] [address] [place], [address] L503.7505on 03-10-2025 proBNP < 36 Normal <=900 [facility] Comment on above: Order Comment: Order Date: 03/10/25Order Info: 0667-1 - BMPOrder Info: [id number] - CRP Result Comment: Hear t Failure Unlikely: < 300 pg/mL Heart Failure Likely < 50 Years: > 450 pg/mL 50-75 Years: > 900 pg/mL >75 Years: > 1800 pg/mL Performed By: #### L 509.6001, L3410.9992, L501.5200, L500.2500 #### [facility] [address] [place], [address] Natriuretic peptide.B prohor gene N-Terminal [Mass/volume] in Serum or PlasmaOrdered By: Tony Kay on 03-10-2025 Natriuretic peptide.B prohormone N-Terminal [Mass/Vol] < 36 pg/mL <900 [facility] Comment on above: Heart Failure Unlike ly: < 300 pg/mLHeart Failure Likely< 50 Years: > 450 pg/mL50-75 Years: > 900 pg/mL>75 Years: > 1800 pg/mL Potassium measurement (mass/ volume)Ordered By: Tony Kay on 03-10-2025 Potassium (Unsp spec) [Mass/Vol] 3.1 mmol/L Low 3.3-5.1 [facility] Serum creatinine measurement (mass/volume)Ordered By: Tony Kay on 03-10-2025 Creatinine [Mass/Vol] 1.06 mg/dL 0.70-1.[address] [facility] Serum glucose measurement (m ass/volume)Ordered By: Tony Kay on 03-10-2025 Glucose [Mass/Vol] 118 mg/dL High 70-99 [facility] Serum or plasma C reactive p rotein measurement (mass/volume)Ordered By: Tony Kay on 03-10-2025 CRP [Mass/Vol] 16.20 mg/L High 0.0-3.0 [facility] Serum or plasma angiotensin converting enzyme measurement (enzymatic activity/volume)Ordered By: Tony Kay on 03-10-2025 Angiotensin converting enzyme [Catalytic activity/Vol] 33 U/L 14-82 [facility] Comment on above: Performed at: [address] [id number] Director: Hesham Christopher PhD, Phone: [phone] Serum or plasma calcium tracy urement (mass/volume)Ordered By: Tony Kay on 03-10-2025 Calcium [Mass/Vol] 9.2 mg/dL 7.6-11.0 [facility] Serum or plasma urea nitroge n measurement (mass/volume)Ordered By: Tony Kay on 03-10-2025 Urea nitrogen [Mass/Vol] 22 mg/dL High 4-19 [facility] Sodium levelOrdered By: Tony Kay on 03-10-2025 Sodium [Moles/Vol] 139 mmol/L 133-145 [facility] Troponin T.cardiac [Mass/vol ume] in Serum or Plasma by High sensitivity methodOrdered By: Tony Kay on 03-10-2025 Troponin T.cardiac High sensitivity method [Mass/Vol] 17 ng/L <22 [facility] Basic Metabolic Profile (BMP )on 03-09-2025 BUN/CRE 21.4 RATIO High 10-20 [facility] Comment on above: Performed By: #### L 509.6001, L3410.9992, L501.5200, L500.2500 #### [facility] [address] [place], [address] Calcium [Mass/Vol] 9.4 mg/dL Normal 7.6-11.0 [facility] Comment on above: Performed By: #### L 509.6001, L3410.9992, L501.5200, L500.2500 #### [facility] [address] [place], [address] Chloride [Moles/Vol] 102 mmol/L Normal 98-108 [facility] Comment on above: Performed By: #### L 509.6001, L3410.9992, L501.5200, L500.2500 #### [facility] [address] [place], [address] CO2 [Moles/Vol] 26.4 mmol/L Normal 21.0-32.0 [facility] Comment on above: Performed By: #### L 509.6001, L3410.9992, L501.5200, L500.2500 #### [facility] [address] [place], [address] Creatinine [Mass/Vol] 1.09 mg/dL Normal 0.70-1.[address] [facility] Comment on above: Performed By: #### L 509.6001, L3410.9992, L501.5200, L500.2500 #### [facility] [address] [place], [address] GAP 12 Normal 5-15 [facility] Comment on above: Performed By: #### L 509.6001, L3410.9992, L501.5200, L500.2500 #### [facility] [address] [place], [address] GFR/1.73 sq M.predicted among non-blacks MDRD (S/P/Bld) [Vol rate/Area] 73 mL/min/{1.73_m2} Normal >60 [facility] Comment on above: Result Comment: mL/m in/1.73m2 CKD-EPI Creatinine Equation (2020) Performed By: #### L 509.6001, L3410.9992, L501.5200, L500.2500 #### [facility] [address] [place], [address] Glucose [Mass/Vol] 120 mg/dL High 70-99 [facility] Comment on above: Performed By: #### L 509.6001, L3410.9992, L501.5200, L500.2500 #### [facility] [address] [place], [address] Potassium [Moles/Vol] 3.6 mmol/L Normal 3.3-5.[address] [facility] Comment on above: Performed By: #### L 509.6001, L3410.9992, L501.5200, L500.2500 #### [facility] [address] [place], [address] Sodium [Moles/Vol] 140 mmol/L Normal 133-145 [facility] Comment on above: Performed By: #### L 509.6001, L3410.9992, L501.5200, L500.2500 #### [facility] [address] [place], [address] Urea nitrogen [Mass/Vol] 23 mg/dL High 4-19 [facility] Comment on above: Performed By: #### L 509.6001, L3410.9992, L501.5200, L500.2500 #### [facility] [address] [place], [address] ALDOSTERONE/DIRECT RENIN RAT IOon 03-06-2025 MELISSA RENIN RATIO 1.3 Normal <3.8 [facility] Comment on above: Order Comment: Speci men Type: BLOOD SPECIMEN Ordering Facility: [facility] Address: [address] [place] [address] Result Comment: A ra kimo of aldosterone in ng/dL to direct renin in pg/mL greater than or equal to 3.8 is a positive screening test result for primary aldosteronism, when aldosterone is greater than or equal to 15 ng/dL. Performed By: #### A LDREN #### [facility] CLIA [id number] [address] [place] [address] [place] Aldosterone [Mass/Vol] 68.7 ng/dL High 0.0-<35.4 [facility] Comment on above: Order Comment: Speci men Type: BLOOD SPECIMEN Ordering Facility: [facility] Address: [address] [place] [address] Result Comment: The reference interval for serum/plasma [...] By: #### A LDREN #### [facility] CLIA [id number] [address] [place] [address] [place] DIRECT RENIN 54.0 pg/mL Normal 3.6-81.6 [facility] Comment on above: Order Comment: Kirsten tomlin Type: BLOOD SPECIMEN Ordering Facility: [facility] Address: [address] [place] [address] Result Comment: The reference interval for direct [...] By: #### A LDREN #### [facility] CLIA [id number] [address] [place] [address] [place] PATIENT UPRIGHT OR SUPINE Upright Normal [facility] Comment on above: Order Comment: Kirsten tomlin Type: BLOOD SPECIMEN Ordering Facility: [facility] Address: [address] [place] [address] Performed By: #### A LDREN #### [facility] CLIA [id number] [address] [place] [address] [place] L3410.9992on 03-06-2025 [facility] Misc. COMMENT Normal . [facility] Comment on above: Order Comment: [id number] DEXAMETHASONE SERUM FRZ Result Comment: Test Ordered: [id number] Dexamethasone, Serum Dexamethasone, Serum 452 ng/dL ES Reference Range: . This test was developed and its performance characteristics determined by [employer]. It has not been cleared or approved by the Food and Drug Administration. Reference Range: Adults baseline: <30 8:00 AM following 1 mg dexamethasone previous evenin - 295 8:00 AM following 8 mg dexamethasone (4 x 2 mg doses) previous day: 1600 - 2850 Performed at: [facility] [address] [place] [id number] Template Checker: Evan Savage MD, Phone: [phone] Performed at: [facility] [address] [id number] Template Checker: Hesham Christopher PhD, Phone: [phone] Performed By: #### L 509.6001, L3410.9992, L501.5200, L500.2500 #### [facility] [address] [place], [address] POTASSIUMon 03-06-2025 Potassium [Moles/Vol] 3.5 mmol/L Low 3.7-5.1 [facility] Comment on above: Order Comment: Speci men Type: BLOOD SPECIMEN Ordering Facility: [facility] Address: [facility] [place] [address] Performed By: #### K 1 #### [facility] CLIA [id number] [address] [place] [address] [place] Anion gap in Serum or Plasma Ordered By: Tony Kay on 02-26-2025 Anion gap [Moles/Vol] 10 mmol/L 02-[address] [facility] BUN/creatinine ratioOrdered By: Tony Kay on 02-26-2025 Urea nitrogen/Creatinine [Mass ratio] 21.8 mg/mg High 07-27 [facility] Basic Metabolic Profile (BMP )on 02-26-2025 BUN/CRE 21.8 RATIO High 07-27 [facility] Comment on above: Performed By: #### L 509.6001, L3410.9992, L501.5200, L500.2500 #### [facility] [address] [place], [address] Calcium [Mass/Vol] 9.2 mg/dL Normal 7.6-11.0 [facility] Comment on above: Performed By: #### L 509.6001, L3410.9992, L501.5200, L500.2500 #### [facility] [address] [place], [address] Chloride [Moles/Vol] 105 mmol/L Normal 98-108 [facility] Comment on above: Performed By: #### L 509.6001, L3410.9992, L501.5200, L500.2500 #### [facility] [address] [place], [address] CO2 [Moles/Vol] 24.9 mmol/L Normal 21.0-32.0 [facility] Comment on above: Performed By: #### L 509.6001, L3410.9992, L501.5200, L500.2500 #### [facility] [address] [place], [address] Creatinine [Mass/Vol] 1.08 mg/dL Normal 0.70-1.[address] [facility] Comment on above: Performed By: #### L 509.6001, L3410.9992, L501.5200, L500.2500 #### [facility] [address] [place], [address] GAP 10 Normal 5-15 [facility] Comment on above: Performed By: #### L 509.6001, L3410.9992, L501.5200, L500.2500 #### [facility] [address] [place], [address] GFR/1.73 sq M.predicted among non-blacks MDRD (S/P/Bld) [Vol rate/Area] 74 mL/min/{1.73_m2} Normal >60 [facility] Comment on above: Result Comment: mL/m in/1.73m2 CKD-EPI Creatinine Equation (2020) Performed By: #### L 509.6001, L3410.9992, L501.5200, L500.2500 #### [facility] [address] [place], [address] Glucose [Mass/Vol] 134 mg/dL High 70-99 [facility] Comment on above: Performed By: #### L 509.6001, L3410.9992, L501.5200, L500.2500 #### [facility] [address] [place], [address] Potassium [Moles/Vol] 4.2 mmol/L Normal 3.3-5.[address] [facility] Comment on above: Performed By: #### L 509.6001, L3410.9992, L501.5200, L500.2500 #### [facility] [address] [place], [address] Sodium [Moles/Vol] 140 mmol/L Normal 133-145 [facility] Comment on above: Performed By: #### L 509.6001, L3410.9992, L501.5200, L500.2500 #### [facility] [address] [place], [address] Urea nitrogen [Mass/Vol] 24 mg/dL High 4-19 [facility] Comment on above: Performed By: #### L 509.6001, L3410.9992, L501.5200, L500.2500 #### [facility] [address] [place], [address] Carbon dioxide, total [Moles /volume] in Central venous bloodOrdered By: Tony Kay on 02-26-2025 CO2 [Moles/Vol] 24.9 mmol/L 21.0-32.0 [facility] Chloride assayOrdered By: Diego Kay on 02-26-2025 Chloride [Moles/Vol] 105 mmol/L 98-108 [facility] Glomerular filtration rate ( GFR) estimation/1.73 sq m using serum, plasma, or whole bOrdered By: Tony Kay on 02-26-2025 GFR/1.73 sq M.predicted among non-blacks MDRD (S/P/Bld) [Vol rate/Area] 74 mL/min/{1.73_m2} >60 [facility] Comment on above: mL/min/1.73m2 CKD-EP I Creatinine Equation (2020) L509.6001on 02-26-2025 CORTISOL 0.55 ug/dL Low 6.02-18.40 [facility] Comment on above: Order Comment: AFTER MED Performed By: #### L 509.6001, L3410.9992, L501.5200, L500.2500 #### [facility] [address] [place], [address] Magnesiumon 02-26-2025 Magnesium [Mass/Vol] 2.1 mg/dL Normal 1.5-2.2 [facility] Comment on above: Performed By: #### L 509.6001, L3410.9992, L501.5200, L500.2500 #### [facility] [address] [place], [address] Magnesium measurement (mass/ volume)Ordered By: Tony Kay on 02-26-2025 Magnesium (Unsp spec) [Mass/Vol] 2.1 mg/dL 1.5-2.2 [facility] Potassium measurement (mass/ volume)Ordered By: Tony Kay on 02-26-2025 Potassium (Unsp spec) [Mass/Vol] 4.2 mmol/L 3.3-5.1 [facility] Serum creatinine measurement (mass/volume)Ordered By: Tony Kay on 02-26-2025 Creatinine [Mass/Vol] 1.08 mg/dL 0.70-1.[address] [facility] Serum glucose measurement (m ass/volume)Ordered By: Tony Kay on 02-26-2025 Glucose [Mass/Vol] 134 mg/dL High 70-99 [facility] Serum or plasma calcium tracy urement (mass/volume)Ordered By: Tony Kay on 02-26-2025 Calcium [Mass/Vol] 9.2 mg/dL 7.6-11.0 [facility] Serum or plasma cortisol cliff surement (mass/volume)Ordered By: Tony Kay on 02-26-2025 Cortisol [Mass/Vol] 0.55 ug/dL Low 6.02-18.40 [facility] Serum or plasma urea nitroge n measurement (mass/volume)Ordered By: Tony Kay on 02-26-2025 Urea nitrogen [Mass/Vol] 24 mg/dL High - [facility] Sodium levelOrdered By: Tony Kay on 02-26-2025 Sodium [Moles/Vol] 140 mmol/L 133-145 [facility] Anion gap in Serum or Plasma Ordered By: Tony Kay on 02-23-2025 Anion gap [Moles/Vol] 13 mmol/L 5-[address] [facility] BUN/creatinine ratioOrdered By: Tony Kay on 02-23-2025 Urea nitrogen/Creatinine [Mass ratio] 22.0 mg/mg High 10- [facility] Basic Metabolic Profile (BMP )on 02-23-2025 BUN/CRE 22.0 RATIO High - [facility] Comment on above: Performed By: #### L 509.6001, L3410.9992, L501.5200, L500.2500 #### [facility] [address] [place], [address] Calcium [Mass/Vol] 9.4 mg/dL Normal 7.6-11.0 [facility] Comment on above: Performed By: #### L 509.6001, L3410.9992, L501.5200, L500.2500 #### [facility] [address] [place], [address] Chloride [Moles/Vol] 101 mmol/L Normal 98-108 [facility] Comment on above: Performed By: #### L 509.6001, L3410.9992, L501.5200, L500.2500 #### [facility] [address] [place], [address] CO2 [Moles/Vol] 27.1 mmol/L Normal 21.0-32.0 [facility] Comment on above: Performed By: #### L 509.6001, L3410.9992, L501.5200, L500.2500 #### [facility] [address] [place], [address] Creatinine [Mass/Vol] 1.06 mg/dL Normal 0.70-1.[address] [facility] Comment on above: Performed By: #### L 509.6001, L3410.9992, L501.5200, L500.2500 #### [facility] [address] [place], [address] GAP 13 Normal 5-15 [facility] Comment on above: Performed By: #### L 509.6001, L3410.9992, L501.5200, L500.2500 #### [facility] [address] [place], [address] GFR/1.73 sq M.predicted among non-blacks MDRD (S/P/Bld) [Vol rate/Area] 76 mL/min/{1.73_m2} Normal >60 [facility] Comment on above: Result Comment: mL/m in/1.73m2 CKD-EPI Creatinine Equation (2020) Performed By: #### L 509.6001, L3410.9992, L501.5200, L500.2500 #### [facility] [address] [place], [address] Glucose [Mass/Vol] 148 mg/dL High 70-99 [facility] Comment on above: Performed By: #### L 509.6001, L3410.9992, L501.5200, L500.2500 #### [facility] [address] [place], [address] Potassium [Moles/Vol] 3.5 mmol/L Normal 3.3-5.[address] [facility] Comment on above: Performed By: #### L 509.6001, L3410.9992, L501.5200, L500.2500 #### [facility] [address] [place], [address] Sodium [Moles/Vol] 140 mmol/L Normal 133-145 [facility] Comment on above: Performed By: #### L 509.6001, L3410.9992, L501.5200, L500.2500 #### [facility] [address] [place], [address] Urea nitrogen [Mass/Vol] 23 mg/dL High 01-24 [facility] Comment on above: Performed By: #### L 509.6001, L3410.9992, L501.5200, L500.2500 #### [facility] [address] [place], [address] Carbon dioxide, total [Moles /volume] in Central venous bloodOrdered By: Tony Kay on 02-23-2025 CO2 [Moles/Vol] 27.1 mmol/L 21.0-32.0 [facility] Chloride assayOrdered By: Diego Kay on 02-23-2025 Chloride [Moles/Vol] 101 mmol/L 98-108 [facility] Glomerular filtration rate ( GFR) estimation/1.73 sq m using serum, plasma, or whole bOrdered By: Tony Kay on 02-23-2025 GFR/1.73 sq M.predicted among non-blacks MDRD (S/P/Bld) [Vol rate/Area] 76 mL/min/{1.73_m2} >60 [facility] Comment on above: mL/min/1.73m2 CKD-EP I Creatinine Equation (2020) Magnesiumon 02-23-2025 Magnesium [Mass/Vol] 1.9 mg/dL Normal 1.5-2.2 [facility] Comment on above: Performed By: #### L 509.6001, L3410.9992, L501.5200, L500.2500 #### [facility] [place], [address] Magnesium measurement (mass/ volume)Ordered By: Tony Kay on 02-23-2025 Magnesium (Unsp spec) [Mass/Vol] 1.9 mg/dL 1.5-2.2 [facility] Potassium measurement (mass/ volume)Ordered By: Tony Kay on 02-23-2025 Potassium (Unsp spec) [Mass/Vol] 3.5 mmol/L 3.3-5.1 [facility] Serum creatinine measurement (mass/volume)Ordered By: Tony Kay on 02-23-2025 Creatinine [Mass/Vol] 1.06 mg/dL 0.70-1.[address] [facility] Serum glucose measurement (m ass/volume)Ordered By: Tony Kay on 02-23-2025 Glucose [Mass/Vol] 148 mg/dL High 70-99 [facility] Serum or plasma calcium tracy urement (mass/volume)Ordered By: Tony Kay on 02-23-2025 Calcium [Mass/Vol] 9.4 mg/dL 7.6-11.0 [facility] Serum or plasma urea nitroge n measurement (mass/volume)Ordered By: Tony Kay on 02-23-2025 Urea nitrogen [Mass/Vol] 23 mg/dL High 4-19 [facility] Sodium levelOrdered By: Tony Kay on 02-23-2025 Sodium [Moles/Vol] 140 mmol/L 133-145 [facility] CNOVon 02-17-2025 CNOV Office Visit ([facility] ) ----- BALTAZAR BAY ([id number]) 1955 M Date Time Provider Department 02/17/25 4:00 PM MILTON VILLANUEVA [facility] During your visit [...] on fluid retention. He follows [facility] abstracts, [facility] and [facility] articles, and reports he thought the fluid [...] CT abdomen and pelvis with contrast at [facility] on 06/27/2023 shows unremarkable adrenal [...] (FLORASTOR ORAL) Take by mouth once daily. [id number]-ast [id number] mg cap zinc sulfate (ZINC-220) 220 mg [...] ferrous sulfat (more content not included)... Normal [facility] Anion gap in Serum or Plasma Ordered By: Tony Kay on 02-12-2025 Anion gap [Moles/Vol] 13 mmol/L 02-[address] [facility] BUN/creatinine ratioOrdered By: Tony Kay on 02-12-2025 Urea nitrogen/Creatinine [Mass ratio] 19.6 mg/mg 07-27 [facility] Basic Metabolic Profile (BMP )on 02-12-2025 BUN/CRE 19.6 RATIO Normal 07-27 [facility] Comment on above: Performed By: #### L 500.2500 #### [facility] [address] [place], [address] Calcium [Mass/Vol] 9.4 mg/dL Normal 7.6-11.0 [facility] Comment on above: Performed By: #### L 500.2500 #### [facility] [address] [place], [address] Chloride [Moles/Vol] 99 mmol/L Normal 98-108 [facility] Comment on above: Performed By: #### L 500.2500 #### [facility] [address] [place], [address] CO2 [Moles/Vol] 28.1 mmol/L Normal 21.0-32.0 [facility] Comment on above: Performed By: #### L 500.2500 #### [facility] [address] [place], [address] Creatinine [Mass/Vol] 1.09 mg/dL Normal 0.70-1.[address] [facility] Comment on above: Performed By: #### L 500.2500 #### [facility] [address] [place], [address] GAP 13 Normal 02-19 [facility] Comment on above: Performed By: #### L 500.2500 #### [facility] [address] [place], [address] GFR/1.73 sq M.predicted among non-blacks MDRD (S/P/Bld) [Vol rate/Area] 73 mL/min/{1.73_m2} Normal >60 [facility] Comment on above: Result Comment: mL/m in/1.73m2 CKD-EPI Creatinine Equation (2020) Performed By: #### L 500.2500 #### [facility] [address] [place], [address] Glucose [Mass/Vol] 152 mg/dL High 70-99 [facility] Comment on above: Performed By: #### L 500.2500 #### [facility] [address] [place], [address] Potassium [Moles/Vol] 3.2 mmol/L Low 3.3-5.[address] [facility] Comment on above: Performed By: #### L 500.2500 #### [facility] [address] [place], [address] Sodium [Moles/Vol] 140 mmol/L Normal 133-145 [facility] Comment on above: Performed By: #### L 500.2500 #### [facility] [address] [place], [address] Urea nitrogen [Mass/Vol] 21 mg/dL High 4-19 [facility] Comment on above: Performed By: #### L 500.2500 #### [facility] [address] [place], [address] Carbon dioxide, total [Moles /volume] in Central venous bloodOrdered By: Tony Kay on 02-12-2025 CO2 [Moles/Vol] 28.1 mmol/L 21.0-32.0 [facility] Chloride assayOrdered By: Diego Kay on 02-12-2025 Chloride [Moles/Vol] 99 mmol/L 98-108 [facility] Glomerular filtration rate ( GFR) estimation/1.73 sq m using serum, plasma, or whole bOrdered By: Tnoy Kay on 02-12-2025 GFR/1.73 sq M.predicted among non-blacks MDRD (S/P/Bld) [Vol rate/Area] 73 mL/min/{1.73_m2} >60 [facility] Comment on above: mL/min/1.73m2 CKD-EP I Creatinine Equation (2020) Potassium measurement (mass/ volume)Ordered By: Tony Kay on 02-12-2025 Potassium (Unsp spec) [Mass/Vol] 3.2 mmol/L Low 3.3-5.1 [facility] Serum creatinine measurement (mass/volume)Ordered By: Tony Kay on 02-12-2025 Creatinine [Mass/Vol] 1.09 mg/dL 0.70-1.[address] [facility] Serum glucose measurement (m ass/volume)Ordered By: Tony Kay on 02-12-2025 Glucose [Mass/Vol] 152 mg/dL High 70-99 [facility] Serum or plasma calcium tracy urement (mass/volume)Ordered By: Tony Kay on 02-12-2025 Calcium [Mass/Vol] 9.4 mg/dL 7.6-11.0 [facility] Serum or plasma urea nitroge n measurement (mass/volume)Ordered By: Tony Kay on 02-12-2025 Urea nitrogen [Mass/Vol] 21 mg/dL High 4-19 [facility] Sodium levelOrdered By: Tony Kay on 02-12-2025 Sodium [Moles/Vol] 140 mmol/L 133-145 [facility] Anion gap in Serum or Plasma Ordered By: Tony Kay on 02-07-2025 Anion gap [Moles/Vol] 14 mmol/L 5-[address] [facility] BUN/creatinine ratioOrdered By: Tony Kay on 02-07-2025 Urea nitrogen/Creatinine [Mass ratio] 18.1 mg/mg 10- [facility] Basic Metabolic Profile (BMP )on 02-07-2025 BUN/CRE 18.1 RATIO Normal - [facility] Comment on above: Performed By: #### L 509.6001, L3410.9992, L501.5200, L500.2500 #### [facility] [address] [place], [place] [address]is[place], [address] Calcium [Mass/Vol] 9.6 mg/dL Normal 7.6-11.0 [facility] Comment on above: Performed By: #### L 509.6001, L3410.9992, L501.5200, L500.2500 #### [facility] [address] [place], [address] Chloride [Moles/Vol] 95 mmol/L Low 98-108 [facility] Comment on above: Performed By: #### L 509.6001, L3410.9992, L501.5200, L500.2500 #### [facility] [address] [place], [address] CO2 [Moles/Vol] 30.6 mmol/L Normal 21.0-32.0 [facility] Comment on above: Performed By: #### L 509.6001, L3410.9992, L501.5200, L500.2500 #### [facility] [address] [place], [address] Creatinine [Mass/Vol] 1.19 mg/dL Normal 0.70-1.[address] [facility] Comment on above: Performed By: #### L 509.6001, L3410.9992, L501.5200, L500.2500 #### [facility] [address] [place], [address] GAP 14 Normal 5-15 [facility] Comment on above: Performed By: #### L 509.6001, L3410.9992, L501.5200, L500.2500 #### [facility] [address] [place], [address] GFR/1.73 sq M.predicted among non-blacks MDRD (S/P/Bld) [Vol rate/Area] 66 mL/min/{1.73_m2} Normal >60 [facility] Comment on above: Result Comment: mL/m in/1.73m2 CKD-EPI Creatinine Equation (2020) Performed By: #### L 509.6001, L3410.9992, L501.5200, L500.2500 #### [facility] [address] [place], [address] Glucose [Mass/Vol] 146 mg/dL High 70-99 [facility] Comment on above: Performed By: #### L 509.6001, L3410.9992, L501.5200, L500.2500 #### [facility] [address] [place], [address] Potassium [Moles/Vol] 3.0 mmol/L Low 3.3-5.[address] [facility] Comment on above: Result Comment: Hemo lysis present, Results??could be affected. ?? Performed By: #### L 509.6001, L3410.9992, L501.5200, L500.2500 #### [facility] [address] [place], [address] Sodium [Moles/Vol] 140 mmol/L Normal 133-145 [facility] Comment on above: Performed By: #### L 509.6001, L3410.9992, L501.5200, L500.2500 #### [facility] [address] [place], [address] Urea nitrogen [Mass/Vol] 22 mg/dL High 4-19 [facility] Comment on above: Performed By: #### L 509.6001, L3410.9992, L501.5200, L500.2500 #### [facility] [address] [place], [address] Carbon dioxide, total [Moles /volume] in Central venous bloodOrdered By: Tony Kay on 02-07-2025 CO2 [Moles/Vol] 30.6 mmol/L 21.0-32.0 [facility] Chloride assayOrdered By: Diego Kay on 02-07-2025 Chloride [Moles/Vol] 95 mmol/L Low 98-108 [facility] Glomerular filtration rate ( GFR) estimation/1.73 sq m using serum, plasma, or whole bOrdered By: Tony Kay on 02-07-2025 GFR/1.73 sq M.predicted among non-blacks MDRD (S/P/Bld) [Vol rate/Area] 66 mL/min/{1.73_m2} >60 [facility] Comment on above: mL/min/1.73m2 CKD-EP I Creatinine Equation (2020) Potassium measurement (mass/ volume)Ordered By: Tony Kay on 02-07-2025 Potassium (Unsp spec) [Mass/Vol] 3.0 mmol/L Low 3.3-5.1 [facility] Comment on above: Hemolysis present, R esults could be affected. Serum creatinine measurement (mass/volume)Ordered By: Tony Kay on 02-07-2025 Creatinine [Mass/Vol] 1.19 mg/dL 0.70-1.[address] [facility] Serum glucose measurement (m ass/volume)Ordered By: Tony Kay on 02-07-2025 Glucose [Mass/Vol] 146 mg/dL High 70-99 [facility] Serum or plasma calcium tracy urement (mass/volume)Ordered By: Tony Kay on 02-07-2025 Calcium [Mass/Vol] 9.6 mg/dL 7.6-11.0 [facility] Serum or plasma urea nitroge n measurement (mass/volume)Ordered By: Tony Kay on 02-07-2025 Urea nitrogen [Mass/Vol] 22 mg/dL High 4-19 [facility] Sodium levelOrdered By: Tony Kay on 02-07-2025 Sodium [Moles/Vol] 140 mmol/L 133-145 [facility] CT Abd/Pelvis W/WO Contrasto n 02-04-2025 CT Abd/Pelvis W/WO Contrast [facility] Services [address] [place] [address] CT Abd/Pelvis W/WO Contrast MR#: [id number] Acct: [id number] Name: BALTAZAR BAY HUNG Rep #: [id number] : 1955 M 69 From: Tim Orozco MD PCP: Dr. Tony Kay MD Status: REG CLI Study: CT Abd/Pelvis W/WO Contrast Date of Exam: 01/08 Exam# [id number] Ordering Dr: Tony Kay MD PROCEDURE: CT [...] 3. Additional description as above. Reading Location: [id number] CC: Dr. Tony Kay MD Clinical Product Specialist: Signed Normal [facility] Abdomen Limitedon 01-10-2025 Abdomen Limited [facility] Imaging Services [address] [place] [address] [id number] Abdomen Limited MR#: [id number] Acct: [id number] Name: BALTAZAR BAY Rep #: [id number] : 1955 M 69 From: Sebastián Amezcua i, DO PCP: Dr. Tony Kay MD Status: REG CLI Study: Abdomen Limited Date of Exam: 01/10/25 Exam# [id number] Ordering Dr: Tony Kay MD PROCEDURE: Abdominal [...] Location: [facility] CC: Dr. Tony Kay MD Clinical Product Specialist: Signed Normal [facility] CNOVon 01-06-2025 CNOV Office Visit ([facility] ) ----- MATILDABALTAZAR ([id number]) 1955 M Date Time Provider Department 01/06/25 11:00 AM DREW RHODES [facility] During your visit today, we [...] SULFATE A ORAL 1,500 mg, DAILY COENZYME [id number] ORAL 600 mg, 2 TIMES DAILY CPAP AT BEDTIME cyanocobalamin (vitamin B-12) 5,000 mcg Doxepin 6 mg tab ferrous sulfate (IRON) 325 mg (65 mg iron) tablet furosemide (LASIX) 40 mg, DAILY Gabapentin 300 mg ORAL Tab 1 tablet, DAILY GLUCOSAMINE HCL ORAL 1,500 mg, DAILY [id number]-afn-[id number] o-ast [id number] mg cap Lactobacillus acidophilus (PROBIOTIC ORAL) DAILY [...] distress EXTREMI (more content not included)... Normal [facility] UA DIP, URINE (POC)on 2024 BILIRUBIN UA (POCT) Negative Negative [facility] CLARITY UA (POCT) Clear [facility] COLOR UA (POCT) Yellow [facility] GLUCOSE UA (POCT) Negative Negative mg/dL [facility] Hemoglobin Ql (U) Negative Negative [facility] KETONE UA (POCT) Negative Negative mg/dL [facility] LEUKOCYTES UA (POCT) Negative Negative [facility] NITRITE UA (POCT) Negative Negative [facility] PH UA (POCT) 7 4.5 - 8.0 [facility] Protein Ql (U) Negative Negative mg/dL [facility] SPECIFIC GRAVITY UA (POCT) 1.02 1.005 - 1.030 [facility] UROBILINOGEN UA (POCT) 0.2 Raysa l E.U./dL [facility] Location:[facility], [address] , [place], [address] [facility] POINT OF CARE [facility] Anion gap in Serum or Plasma Ordered By: Tony Kay on 01-03-2025 Anion gap [Moles/Vol] 14 mmol/L 02-[address] [facility] BUN/creatinine ratioOrdered By: Tony Kay on 01-03-2025 Urea nitrogen/Creatinine [Mass ratio] 19.7 mg/mg - [facility] Basic Metabolic Profile (BMP )on 01-03-2025 BUN/CRE 19.7 RATIO Normal 07-27 [facility] Comment on above: Performed By: #### L 500.2500 #### [facility] [address] [place], [address] Calcium [Mass/Vol] 9.8 mg/dL Normal 7.6-11.0 [facility] Comment on above: Performed By: #### L 500.2500 #### [facility] [address] [place], [address] Chloride [Moles/Vol] 95 mmol/L Low 98-108 [facility] Comment on above: Performed By: #### L 500.2500 #### [facility] [address] [place], [address] CO2 [Moles/Vol] 29.4 mmol/L Normal 21.0-32.0 [facility] Comment on above: Performed By: #### L 500.2500 #### [facility] [address] [place], [address] Creatinine [Mass/Vol] 1.20 mg/dL Normal 0.70-1.[address] [facility] Comment on above: Performed By: #### L 500.2500 #### [facility] [address] [place], [address] GAP 14 Normal 5-15 [facility] Comment on above: Performed By: #### L 500.2500 #### [facility] [address] [place], [address] GFR/1.73 sq M.predicted among non-blacks MDRD (S/P/Bld) [Vol rate/Area] 65 mL/min/{1.73_m2} Normal >60 [facility] Comment on above: Result Comment: mL/m in/1.73m2 CKD-EPI Creatinine Equation (2020) Performed By: #### L 500.2500 #### [facility] [address] [place], [address] Glucose [Mass/Vol] 154 mg/dL High 70-99 [facility] Comment on above: Performed By: #### L 500.2500 #### [facility] [address] [place], [address] Potassium [Moles/Vol] 3.7 mmol/L Normal 3.3-5.[address] [facility] Comment on above: Result Comment: Hemo lysis present, Results??could be affected. ?? Performed By: #### L 500.2500 #### [facility] [address] [place], [address] Sodium [Moles/Vol] 139 mmol/L Normal 133-145 [facility] Comment on above: Performed By: #### L 500.2500 #### [facility] [address] [place], [address] Urea nitrogen [Mass/Vol] 24 mg/dL High 4-19 [facility] Comment on above: Performed By: #### L 500.2500 #### [facility] [address] [place], [address] Carbon dioxide, total [Moles /volume] in Central venous bloodOrdered By: Tony Kay on 01-03-2025 CO2 [Moles/Vol] 29.4 mmol/L 21.0-32.0 [facility] Chloride assayOrdered By: Diego Kay on 01-03-2025 Chloride [Moles/Vol] 95 mmol/L Low 98-108 [facility] GFR/1.73 sq M.predicted abi g non-blacks MDRD (S/P/Bld) [Vol rate/Area]Ordered By: Tony Kay on 01-03-2025 Estimated GFR (MDRD) Non-Af Amer 65 >60 [facility] Comment on above: mL/min/1.73m2 CKD-EP I Creatinine Equation (2020) Glomerular filtration rate ( GFR) estimation/1.73 sq m using serum, plasma, or whole bOrdered By: Tony Kay on 01-03-2025 GFR/1.73 sq M.predicted among non-blacks MDRD (S/P/Bld) [Vol rate/Area] 65 mL/min/{1.73_m2} >60 [facility] Comment on above: mL/min/1.73m2 CKD-EP I Creatinine Equation (2020) Potassium (Unsp spec) [Mass/ Vol]Ordered By: Tony Kay on 01-03-2025 Potassium [Moles/Vol] 3.7 mmol/L 3.3-5.[address] [facility] Comment on above: Hemolysis present, R esults could be affected. Potassium measurement (mass/ volume)Ordered By: Tony Kay on 01-03-2025 Potassium (Unsp spec) [Mass/Vol] 3.7 mmol/L 3.3-5.1 [facility] Comment on above: Hemolysis present, R esults could be affected. Serum creatinine measurement (mass/volume)Ordered By: Tony Kay on 01-03-2025 Creatinine [Mass/Vol] 1.20 mg/dL 0.70-1.[address] [facility] Serum glucose measurement (m ass/volume)Ordered By: Tony Kay on 01-03-2025 Glucose [Mass/Vol] 154 mg/dL High 70-99 [facility] Serum or plasma calcium tracy urement (mass/volume)Ordered By: Tony Kay on 01-03-2025 Calcium [Mass/Vol] 9.8 mg/dL 7.6-11.0 [facility] Serum or plasma urea nitroge n measurement (mass/volume)Ordered By: Tony Kay on 01-03-2025 Urea nitrogen [Mass/Vol] 24 mg/dL High 4-19 [facility] Sodium levelOrdered By: Tony Kay on 01-03-2025 Sodium [Moles/Vol] 139 mmol/L 133-145 [facility] ACTH Plas-mCncon 01-02-2025 Corticotropin (P) [Mass/Vol] 20.4 pg/mL Normal 7.2-63.3 [facility] Comment on above: Order Comment: Kirsten tomlin Type: BLOOD SPECIMEN Ordering Facility: [facility] Address: [address] [place] [address] Result Comment: ACTH Reference Range: 7-10 am: 7.2 - 63.3 pg/mL Performed By: #### 2 141-0 #### [facility] CLIA [id number] [address] [place] [address] [place] ALDOSTERONE/DIRECT RENIN RAT IOon 01-02-2025 MELISSA RENIN RATIO 0.4 Normal <3.8 [facility] Comment on above: Order Comment: Kirsten tomlin Type: BLOOD SPECIMEN Ordering Facility: [facility] Address: [address] [place] [address] Result Comment: A ra kimo of aldosterone in ng/dL to direct renin in pg/mL greater than or equal to 3.8 is a positive screening test result for primary aldosteronism, when aldosterone is greater than or equal to 15 ng/dL. Performed By: #### A LDREN #### [facility] CLIA [id number] [address] [place] [address] [place] Aldosterone [Mass/Vol] 36.9 ng/dL High 0.0-<35.4 [facility] Comment on above: Order Comment: Kirsten tomlin Type: BLOOD SPECIMEN Ordering Facility: [facility] Address: [address] [place] [address] Result Comment: The reference interval for serum/plasma [...] By: #### A LDREN #### [facility] CLIA [id number] [address] [place] [address] [place] DIRECT RENIN 97.3 pg/mL High 3.6-81.6 [facility] Comment on above: Order Comment: Kirsten tomlin Type: BLOOD SPECIMEN Ordering Facility: [facility] Address: [address] [place] [address] Result Comment: The reference interval for direct [...] By: #### A LDREN #### [facility] CLIA [id number] [address] [place] [address] [place] PATIENT UPRIGHT OR SUPINE Upright Normal [facility] Comment on above: Order Comment: Kirsten tomlin Type: BLOOD SPECIMEN Ordering Facility: [facility] Address: [address] [place] [address] Performed By: #### A LDREN #### [facility] CLIA [id number] [address] [place] [address] [place] Cortrufino Hua-Paulineon 01-03-20 25 Cortisol [Mass/Vol] 12.0 ug/dL Normal 4.8-19.5 [facility] Comment on above: Order Comment: Kirsten tomlin Type: BLOOD SPECIMEN Ordering Facility: [facility] Address: [address] [place] [address] Result Comment: Prov ided reference range is from 6-10 AM sample collection time. Cortisol Reference Range: 6-10 AM = 4.8-19.5 ug/dL, 4-8 PM = 2.5-11.9 ug/dL Performed By: #### A ALIZA #### [facility] CLIA [id number] [address] [place] [address] [place] POTASSIUMon 01-02-2025 Potassium [Moles/Vol] 3.0 mmol/L Low 3.7-5.1 [facility] Comment on above: Order Comment: Speci men Type: BLOOD SPECIMEN Ordering Facility: [facility] Address: [address] [place] [address] Performed By: #### A ALIZA #### [facility] CLIA [id number] [address] [place] [address] [place] BUN/creatinine ratioOrdered By: Roman Salvador on 12-04-2024 Urea nitrogen/Creatinine [Mass ratio] 22.9 mg/mg High 07-27 [facility] Basic Metabolic Profile (BMP )on 12-04-2024 Anion gap [Moles/Vol] 13 mmol/L Normal 5-[address] [facility] Comment on above: Order Comment: Order Date: 08/07/24Order Info: 0667-1 - BMP Performed By: #### L 509.6001, L3410.9992, L501.5200, L500.2500 #### [facility] [address] [place], [address] BUN/CRE 22.9 RATIO High 07-27 [facility] Comment on above: Order Comment: Order Date: 08/07/24Order Info: 0667-1 - BMP Performed By: #### L 509.6001, L3410.9992, L501.5200, L500.2500 #### [facility] [address] [place], [address] Calcium [Mass/Vol] 10.0 mg/dL Normal 7.6-11.0 [facility] Comment on above: Order Comment: Order Date: 08/07/24Order Info: 666-10 - BMP Performed By: #### L 509.6001, L3410.9992, L501.5200, L500.2500 #### [facility] [address] [place], [address] Chloride [Moles/Vol] 94 mmol/L Low 96-108 [facility] Comment on above: Order Comment: Order Date: 08/07/24Order Info: 666-10 - BMP Performed By: #### L 509.6001, L3410.9992, L501.5200, L500.2500 #### [facility] [address] [place], [address] CO2 [Moles/Vol] 31.3 mmol/L High 22.0-29.0 [facility] Comment on above: Order Comment: Order Date: 08/07/24Order Info: 666-10 - BMP Performed By: #### L 509.6001, L3410.9992, L501.5200, L500.2500 #### [facility] [address] [place], [address] Creatinine [Mass/Vol] 1.2 mg/dL Normal 0.8-1.[address] [facility] Comment on above: Order Comment: Order Date: 08/07/24Order Info: 666-10 - BMP Performed By: #### L 509.6001, L3410.9992, L501.5200, L500.2500 #### [facility] [address] [place], [address] GFR/1.73 sq M.predicted among non-blacks MDRD (S/P/Bld) [Vol rate/Area] 64 mL/min/{1.73_m2} Normal >60 [facility] Comment on above: Order Comment: Order Date: 08/07/24Order Info: 666-10 - BMP Result Comment: mL/m in/1.73m2 CKD-EPI Creatinine Equation (2020) Performed By: #### L 509.6001, L3410.9992, L501.5200, L500.2500 #### [facility] [address] [place], [address] Glucose [Mass/Vol] 135 mg/dL High 70-99 [facility] Comment on above: Order Comment: Order Date: 08/07/24Order Info: 666-10 - BMP Performed By: #### L 509.6001, L3410.9992, L501.5200, L500.2500 #### [facility] [address] [place], [address] Potassium [Moles/Vol] 3.3 mmol/L Normal 3.3-5.[address] [facility] Comment on above: Order Comment: Order Date: 08/07/24Order Info: 666-10 - BMP Performed By: #### L 509.6001, L3410.9992, L501.5200, L500.2500 #### [facility] [address] [place], [address] Sodium [Moles/Vol] 138 mmol/L Normal 133-145 [facility] Comment on above: Order Comment: Order Date: 08/07/24Order Info: 666-10 - BMP Performed By: #### L 509.6001, L3410.9992, L501.5200, L500.2500 #### [facility] [address] [place], [address] Urea nitrogen [Mass/Vol] 28 mg/dL High 4-19 [facility] Comment on above: Order Comment: Order Date: 08/07/24Order Info: 666-10 - BMP Performed By: #### L 509.6001, L3410.9992, L501.5200, L500.2500 #### [facility] [address] [place], [address] Carbon dioxide measurementOr dered By: Roman Salvador on 12-04-2024 CO2 [Moles/Vol] 31.3 mmol/L High 22.0-29.0 [facility] Chloride measurementOrdered By: Roman Salvador on 12-04-2024 Chloride [Moles/Vol] 94 mmol/L Low 96-108 [facility] Creatinine [Moles/Vol]Ordere d By: Roman Salvador on 12-04-2024 Creatinine [Mass/Vol] 1.2 mg/dL 0.8-1.[address] [facility] GFR/1.73 sq M.predicted abi g non-blacks MDRD (S/P/Bld) [Vol rate/Area]Ordered By: Roman Salvador on 12-04-2024 Estimated GFR (MDRD) Non-Af Amer 64 >60 [facility] Comment on above: mL/min/1.73m2 CKD-EP I Creatinine Equation (2020) Glomerular filtration rate ( GFR) estimation/1.73 sq m using serum, plasma, or whole bOrdered By: Roman Salvador on 12-04-2024 GFR/1.73 sq M.predicted among non-blacks MDRD (S/P/Bld) [Vol rate/Area] 64 mL/min/{1.73_m2} >60 [facility] Comment on above: mL/min/1.73m2 CKD-EP I Creatinine Equation (2020) Serum glucose measurement (m ass/volume)Ordered By: Roman Salvador on 12-04-2024 Glucose [Mass/Vol] 135 mg/dL High 70-99 [facility] Serum or plasma anion gap de termination (moles/volume)Ordered By: Roman Salvador on 12-04-2024 Anion gap [Moles/Vol] 13 mmol/L 5-[address] [facility] Serum or plasma calcium tracy urement (mass/volume)Ordered By: Roman Salvador on 12-04-2024 Calcium [Mass/Vol] 10.0 mg/dL 7.6-11.0 [facility] Serum or plasma creatinine m easurement (moles/volume)Ordered By: Roman Salvador on 12-04-2024 Creatinine [Moles/Vol] 1.2 mg/dL 0.8-1.3 [facility] Serum or plasma potassium me asurementOrdered By: Roman Salvador on 12-04-2024 Potassium [Moles/Vol] 3.3 mmol/L 3.3-5.[address] [facility] Serum or plasma sodium measu rement (moles/volume)Ordered By: Roman Salvador on 12-04-2024 Sodium [Moles/Vol] 138 mmol/L 133-145 [facility] Serum or plasma urea nitroge n measurement (mass/volume)Ordered By: Roman Salvador on 12-04-2024 Urea nitrogen [Mass/Vol] 28 mg/dL High 4-19 [facility] Basic Metabolic Profile (BMP )on 12-02-2024 BUN/CRE 21.1 RATIO High 10-20 [facility] Comment on above: Order Comment: Inter face Comments:standing orderOrder Date: 08/21/24Order Info: 666- - BMPstanding order Performed By: #### L 500.2500 ####[facility] [address] [place], [address] CA,Total 9.2 mg/dL Normal 8.5-10.1 [facility] Comment on above: Order Comment: Inter face Comments:standing orderOrder Date: 08/21/24Order Info: 666-10 - BMPstanding order Performed By: #### L 500.2500 ####[facility] [address] [place], [address] Chloride [Moles/Vol] 95 mmol/L Low 98-107 [facility] Comment on above: Order Comment: Inter face Comments:standing orderOrder Date: 08/21/24Order Info: 0667- - BMPstanding order Performed By: #### L 500.2500 ####[facility] [address] [place], [address] CO2 [Moles/Vol] 31.0 mmol/L Normal 21.0-32.0 [facility] Comment on above: Order Comment: Inter face Comments:standing orderOrder Date: 08/21/24Order Info: 06- - BMPstanding order Performed By: #### L 500.2500 ####[facility] [address] [place], [place], [address] Creatinine [Mass/Vol] 1.23 mg/dL Normal 0.70-1.[address] [facility] Comment on above: Order Comment: Inter face Comments:standing orderOrder Date: 08/21/24Order Info: 666-10 [facility] Result Comment: The validity of the calculated GFR GFRAA in patients over 70 years has not been determined. Clinical correlation is essential. Performed By: #### L 500.2500 ####[facility] [address] [place], [place], [address] EST GFR - AA 75 mL/min Normal >60 [facility] Comment on above: Order Comment: Inter face Comments:standing orderOrder Date: 08/21/24Order Info: 666-10 [facility] order Result Comment: Afri can Congolese GFR Calc Performed By: #### L 500.2500 ####[facility] [address] [place], [address] GAP 9 Normal 5-15 [facility] Comment on above: Order Comment: Inter face Comments:standing orderOrder Date: 08/21/24Order Info: 666-10 - [facility] order Performed By: #### L 500.2500 ####[facility] [address] [place], [place], [address] GFR/1.73 sq M.predicted among non-blacks MDRD (S/P/Bld) [Vol rate/Area] 62 mL/min/{1.73_m2} Normal >60 [facility] Comment on above: Order Comment: Inter face Comments:standing orderOrder Date: 08/21/24Order Info: 666-10 [facility] order Result Comment: Non- GFR Calc Performed By: #### L 500.2500 ####[facility] [address] [place], [place], [address] Glucose [Mass/Vol] 135 mg/dL High 74-106 [facility] Comment on above: Order Comment: Inter face Comments:standing orderOrder Date: 08/21/24Order Info: 0667-1 - BMPstanding order Result Comment: Fast ing Glucose result greater than or equal to 126 mg/dL suggests DIABETES MELLITUS per A.D.A. criteria. Performed By: #### L 500.2500 ####[facility] [address] [place], [place], [address] Potassium [Moles/Vol] 2.9 mmol/L Low 3.5-5.[address] [facility] Comment on above: Order Comment: Inter face Comments:standing orderOrder Date: 08/21/24Order Info: 0667-1 - BMPstanding order Performed By: #### L 500.2500 ####[facility] [address] [place], [address] Sodium [Moles/Vol] 135 mmol/L Low 136-145 [facility] Comment on above: Order Comment: Inter face Comments:standing orderOrder Date: 08/21/24Order Info: 0667-1 - BMPstanding order Performed By: #### L 500.2500 ####[facility] [address] [place], [address] Urea nitrogen [Mass/Vol] 26 mg/dL High 7-18 [facility] Comment on above: Order Comment: Inter face Comments:standing orderOrder Date: 08/21/24Order Info: 0667-1 - BMPstanding order Performed By: #### L 500.2500 ####[facility] [address] [place], [address] Blood urea nitrogen (BUN)/cr eatinine ratioOrdered By: Tony Kay on 12-01-2024 Urea nitrogen/Creatinine [Mass ratio] 21.1 mg/mg High 10-20 [facility] Carbon dioxide measurementOr dered By: Tony Kay on 12-01-2024 CO2 [Moles/Vol] 31.0 mmol/L 21.0-32.0 [facility] Chloride measurementOrdered By: Tony Kay on 12-01-2024 Chloride [Moles/Vol] 95 mmol/L Low 98-107 [facility] Estimated glomerular filtrat ion rate (GFR) AmericanOrdered By: Tony Kay on 12-01-2024 Estimated GFR (MDRD) Amer 75 mL/min >60 [facility] Comment on above: GFR Calc Glomerular filtration rate ( GFR) estimationOrdered By: Tony Kay on 12-01-2024 Estimated GFR (MDRD) Non-Af Amer 62 mL/min >60 [facility] Comment on above: Non- GFR Calc GFR/1.73 sq M.predicted among non-blacks MDRD (S/P/Bld) [Vol rate/Area] 62 mL/min/{1.73_m2} >60 [facility] Comment on above: Non- GFR Calc Glucose measurementOrdered B y: Tony Kay on 12-01-2024 Glucose [Mass/Vol] 135 mg/dL High 74-106 [facility] Comment on above: Fasting Glucose resu lt greater than or equal to 126 mg/dL suggests DIABETES MELLITUS per A.D.A. criteria. Potassium measurementOrdered By: Tony Kay on 12-01-2024 Potassium [Moles/Vol] 2.9 mmol/L Low 3.5-5.[address] [facility] Serum anion gap measurementO rdered By: Tony Kay on 12-01-2024 Anion gap [Moles/Vol] 9 mmol/L 5-[address] [facility] Serum or plasma calcium tracy urement (mass/volume)Ordered By: Tony Kay on 12-01-2024 Calcium [Mass/Vol] 9.2 mg/dL 8.5-10.1 [facility] Serum or plasma creatinine m easurement (mass/volume)Ordered By: Tony Kay on 12-01-2024 Creatinine [Mass/Vol] 1.23 mg/dL 0.70-1.[address] [facility] Comment on above: The validity of the calculated GFR & GFRAA in patients over 70 years has not been determined. Clinical correlation is essential. Serum or plasma urea nitroge n measurement (mass/volume)Ordered By: Tony Kay on 12-01-2024 Urea nitrogen [Mass/Vol] 26 mg/dL High 7-18 [facility] Sodium levelOrdered By: Tony Kay on 12-01-2024 Sodium [Moles/Vol] 135 mmol/L Low 136-145 [facility] CNOVon 11-28-2024 CNOV Office Visit (ENWSTR ) ----- [place] ([id number]) 1955 M Date Time Provider Department 11/28/24 [...] on fluid retention. He follows [facility] abstracts, [facility] and [facility] articles, and reports he thought the fluid [...] CT abdomen and pelvis with contrast at [facility] on 06/27/2023 shows unremarkable adrenal [...] (FLORASTOR ORAL) Take by mouth once daily. [id number] mg cap zinc sulfate (ZINC-220) 220 mg [...] 10/30/2024) LEVOC (more content not included)... Normal [facility] Adrenocorticotropic Hormoneo n 10-26-2024 ACTH 21.2 pg/mL Normal 7.2-63.3 [facility] Comment on above: Order Comment: AFTER MED Result Comment: ACTH reference interval for samples collected between 7 and 10 AM. Performed at: [facility] [address] [id number] Template Checker: Carlos Sim MD, Phone: [phone] Performed at: [facility] [address] [id number] Template Checker: Hesham Christopher PhD, Phone: [phone] Performed By: #### L 509.6001, L3410.9992, L501.5200, L500.2500 #### [facility] [address] [place], [place], [address] Aldosterone, Serumon 025 ALDOSTERONE,S 82.0 ng/dL High 0.0-30.0 [facility] Comment on above: Order Comment: AFTER MED Performed By: #### L 509.6001, L3410.9992, L501.5200, L500.2500 #### [facility] [address] [place], [address] Renin, Plasmaon 10-26-2024 RENIN, PLASMA 11.633 ng/mL/hr High 0.167-5.38 0 [facility] Comment on above: Order Comment: AFTER MED Performed By: #### L 509.6001, L3410.9992, L501.5200, L500.2500 #### [facility] [address] [place], [place], [id number] L3410.9999on 10-19-2024 [facility] Misc. COMMENT Normal . [facility] Comment on above: Order Comment: 98629 8CORTISOL AM Result Comment: Test Ordered: [id number] Cortisol - AM Cortisol - AM 7.7 ug/dL Reference Range: 6.2-19.4 Performed at: [facility] [address] [place], [place] [id number] Template Checker: Hesham Christopher PhD, Phone: [phone] Performed By: #### L 3410.9999 ####[facility] [address] [place], [place], [id number] Adrenocorticotropic hormone (ACTH) measurementOrdered By: Tony Kay on 10-16-2024 Adrenocorticotropic Hormone 21.2 pg/mL 7.2-63.3 [facility] Comment on above: ACTH reference inter shakir for samples collected between 7 and10 AM.Performed at: [address] [id number] Director: Carlos Sim MD, Phone: [phone] at: [address] [id number] Director: Hesham Christopher PhD, Phone: [phone] Aldosterone, serumOrdered By : Tony Kay on 10-16-2024 Aldosterone 82.0 ng/dL High 0.0-30.0 [facility] Basic Metabolic Profile (BMP )on 10-16-2024 BUN/CRE 19.1 RATIO Normal 10-20 [facility] Comment on above: Order Comment: AFTER MED Performed By: #### L 509.6001, L3410.9992, L501.5200, L500.2500 #### [facility] [address] [place], [address] CA,Total 9.5 mg/dL Normal 8.5-10.1 [facility] Comment on above: Order Comment: AFTER MED Performed By: #### L 509.6001, L3410.9992, L501.5200, L500.2500 #### [facility] [address] [place], [address] Chloride [Moles/Vol] 101 mmol/L Normal 98-107 [facility] Comment on above: Order Comment: AFTER MED Performed By: #### L 509.6001, L3410.9992, L501.5200, L500.2500 #### [facility] [address] [place], [address] CO2 [Moles/Vol] 30.0 mmol/L Normal 21.0-32.0 [facility] Comment on above: Order Comment: AFTER MED Performed By: #### L 509.6001, L3410.9992, L501.5200, L500.2500 #### [facility] [address] [place], [address] Creatinine [Mass/Vol] 1.41 mg/dL High 0.70-1.[address] [facility] Comment on above: Order Comment: AFTER MED Result Comment: The validity of the calculated GFR GFRAA in patients over 70 years has not been determined. Clinical correlation is essential. Performed By: #### L 509.6001, L3410.9992, L501.5200, L500.2500 #### [facility] [address] [place], [address] EST GFR - AA 64 mL/min Normal >60 [facility] Comment on above: Order Comment: AFTER MED Result Comment: Afri can Congolese GFR Calc Performed By: #### L 509.6001, L3410.9992, L501.5200, L500.2500 #### [facility] [address] [place], [address] GAP 6 Normal 5-15 [facility] Comment on above: Order Comment: AFTER MED Performed By: #### L 509.6001, L3410.9992, L501.5200, L500.2500 #### [facility] [address] [place], [address] GFR/1.73 sq M.predicted among non-blacks MDRD (S/P/Bld) [Vol rate/Area] 53 mL/min/{1.73_m2} Low >60 [facility] Comment on above: Order Comment: AFTER MED Result Comment: Non- GFR Calc Performed By: #### L 509.6001, L3410.9992, L501.5200, L500.2500 #### [facility] [address] [place], [address] Glucose [Mass/Vol] 136 mg/dL High 74-106 [facility] Comment on above: Order Comment: AFTER MED Result Comment: Fast ing Glucose result greater than or equal to 126 mg/dL suggests DIABETES MELLITUS per A.D.A. criteria. Performed By: #### L 509.6001, L3410.9992, L501.5200, L500.2500 #### [facility] [address] [place], [address] Potassium [Moles/Vol] 3.7 mmol/L Normal 3.5-5.[address] [facility] Comment on above: Order Comment: AFTER MED Performed By: #### L 509.6001, L3410.9992, L501.5200, L500.2500 #### [facility] [address] [place], [address] Sodium [Moles/Vol] 137 mmol/L Normal 136-145 [facility] Comment on above: Order Comment: AFTER MED Performed By: #### L 509.6001, L3410.9992, L501.5200, L500.2500 #### [facility] [address] [place], [address] Urea nitrogen [Mass/Vol] 27 mg/dL High 7-18 [facility] Comment on above: Order Comment: AFTER MED Performed By: #### L 509.6001, L3410.9992, L501.5200, L500.2500 #### [facility] [address] [place], [address] Blood urea nitrogen (BUN)/cr eatinine ratioOrdered By: Tony Kay on 10-16-2024 Urea nitrogen/Creatinine [Mass ratio] 19.1 mg/mg 10-20 [facility] Carbon dioxide measurementOr dered By: Tony Kay on 10-16-2024 CO2 [Moles/Vol] 30.0 mmol/L 21.0-32.0 [facility] Chloride measurementOrdered By: Tony Kay on 10-16-2024 Chloride [Moles/Vol] 101 mmol/L 98-107 [facility] Estimated glomerular filtrat ion rate (GFR) AmericanOrdered By: Tony Kay on 10-16-2024 Estimated GFR (MDRD) Amer 64 mL/min >60 [facility] Comment on above: GFR Calc Glomerular filtration rate ( GFR) estimationOrdered By: Tony Kay on 10-16-2024 Estimated GFR (MDRD) Non-Af Amer 53 mL/min Low >60 [facility] Comment on above: Non- GFR Calc Glucose measurementOrdered B y: Tony Kay on 10-16-2024 Glucose [Mass/Vol] 136 mg/dL High 74-106 [facility] Comment on above: Fasting Glucose resu lt greater than or equal to 126 mg/dL suggests DIABETES MELLITUS per A.D.A. criteria. No Panel InformationOrdered By: Tony Kay on 10-16-2024 Miscellaneous Test COMMENT . [facility] Comment on above: Test Ordered: [id number] Cortisol - AMCortisol - AM 7.7 ug/dL CB Reference Range: 6.2-19.4Performed at: - [facility] [address] [id number] Director: Hesham Christopher PhD, Phone: [phone] Potassium measurementOrdered By: Tony Kay on 10-16-2024 Potassium [Moles/Vol] 3.7 mmol/L 3.5-5.[address] [facility] Renin (P) [Catalytic activit y/Vol]Ordered By: Tony Kay on 10-16-2024 Renin 11.633 ng/mL/hr High 0.167-5.38 0 [facility] Serum anion gap measurementO rdered By: Tony Kay on 10-16-2024 Anion gap [Moles/Vol] 6 mmol/L 5-[address] [facility] Serum or plasma calcium tracy urement (mass/volume)Ordered By: Tony Kay on 10-16-2024 Calcium [Mass/Vol] 9.5 mg/dL 8.5-10.1 [facility] Serum or plasma creatinine m easurement (mass/volume)Ordered By: Tony Kay on 10-16-2024 Creatinine [Mass/Vol] 1.41 mg/dL High 0.70-1.[address] [facility] Comment on above: The validity of the calculated GFR & GFRAA in patients over 70 years has not been determined. Clinical correlation is essential. Serum or plasma urea nitroge n measurement (mass/volume)Ordered By: Tony Kay on 10-16-2024 Urea nitrogen [Mass/Vol] 27 mg/dL High 7-18 [facility] Sodium levelOrdered By: Tony Kay on 10-16-2024 Sodium [Moles/Vol] 137 mmol/L 136-145 [facility] 97-PD-Olhlelf DOrdered By: Willian Kay on 08-20-2024 Vitamin D 25-Hydroxy 46.6 ng/mL [facility] Comment on above: Vitamin D 25(OH) Sta tus Range Deficiency <20 ng/mL (50nmol/L) Insufficiency 20 - 30 ng/mL (50 - 75 nmol/L) Sufficiency 30 - 100 ng/mL (75 - 250 nmol/L) Toxicity >100 ng/mL (>250 nmol/L) Absolute neutrophil countOrd ered By: Tony Kay on 08-20-2024 Neutrophils (Bld) [#/Vol] 3.6 10*3/uL 2.0-7.7 [facility] Albumin to globulin ratioOrd ered By: Tony Kay on 08-20-2024 Albumin/Globulin [Mass ratio] 0.7 {ratio} Low 0.9-2.4 [facility] Basophil percentageOrdered B y: Tony Kay on 08-20-2024 Basophils/100 WBC (Bld) 0.8 % 0-1 [facility] Bilirubin, totalOrdered By: Tony Kay on 08-20-2024 Bilirubin [Mass/Vol] 0.40 mg/dL 0.20-1.00 [facility] Comment on above: For patients on eltr ombopag therapy, use of Dimension [place] TBIL is not recommended. Blood urea nitrogen (BUN)/cr eatinine ratioOrdered By: Tony Kay on 08-20-2024 Urea nitrogen/Creatinine [Mass ratio] 20.0 mg/mg 10-20 [facility] CBC W/Diff, Automatedon 08-08 Absolute Lymph 1.70 X10 3/uL Normal 0.83-4.51 [facility] Comment on above: Order Comment: AFTER MED Performed By: #### L 509.6001, L3410.9992, L501.5200, L500.2500 #### [facility] [address] [place], [address] Absolute Neut 3.6 X10 3/uL Normal 2.0-7.7 [facility] Comment on above: Order Comment: AFTER MED Performed By: #### L 509.6001, L3410.9992, L501.5200, L500.2500 #### [facility] [address] [place], [address] Basophils/100 WBC (Bld) 0.8 % Normal 0-1 [facility] Comment on above: Order Comment: AFTER MED Performed By: #### L 509.6001, L3410.9992, L501.5200, L500.2500 #### [facility] [address] [place], [address] Eosinophils/100 WBC (Bld) 2.1 % Normal 0-5 [facility] Comment on above: Order Comment: AFTER MED Performed By: #### L 509.6001, L3410.9992, L501.5200, L500.2500 #### [facility] [address] [place], [address] Erythrocyte distribution width (RBC) [Ratio] 16.9 % High 11.6-14.6 [facility] Comment on above: Order Comment: AFTER MED Performed By: #### L 509.6001, L3410.9992, L501.5200, L500.2500 #### [facility] [address] [place], [address] Hematocrit (Bld) [Volume fraction] 47.5 % Normal 40-54 [facility] Comment on above: Order Comment: AFTER MED Performed By: #### L 509.6001, L3410.9992, L501.5200, L500.2500 #### [facility] [address] [place], [address] Hemoglobin (Bld) [Mass/Vol] 15.1 g/dL Normal 13.0-16.5 [facility] Comment on above: Order Comment: AFTER MED Performed By: #### L 509.6001, L3410.9992, L501.5200, L500.2500 #### [facility] [address] [place], [address] IG% 0.500 Normal 0.0-0.9 [facility] Comment on above: Order Comment: AFTER MED Result Comment: IG% - Immature Granulocytes (promyelocytes, myelocytes and metamyelocytes) > 1% indicates that a LEFT SHIFT is Present. Performed By: #### L 509.6001, L3410.9992, L501.5200, L500.2500 #### [facility] [address] [place], [address] Lymphocytes/100 WBC (Bld) 27.8 % Normal 19-41 [facility] Comment on above: Order Comment: AFTER MED Performed By: #### L 509.6001, L3410.9992, L501.5200, L500.2500 #### [facility] [address] [place], [address] MCH (RBC) [Entitic mass] 27.2 pg Normal 27.0-32.0 [facility] Comment on above: Order Comment: AFTER MED Performed By: #### L 509.6001, L3410.9992, L501.5200, L500.2500 #### [facility] [address] [place], [address] MCHC (RBC) [Mass/Vol] 31.8 g/dL Low 32-[address] [facility] Comment on above: Order Comment: AFTER MED Performed By: #### L 509.6001, L3410.9992, L501.5200, L500.2500 #### [facility] [address] [place], [address] MCV (RBC) [Entitic vol] 85.6 fL Normal 80-[address] [facility] Comment on above: Order Comment: AFTER MED Performed By: #### L 509.6001, L3410.9992, L501.5200, L500.2500 #### [facility] [address] [place], [address] Monocytes/100 WBC (Bld) 10.0 % Normal 0-[address] [facility] Comment on above: Order Comment: AFTER MED Performed By: #### L 509.6001, L3410.9992, L501.5200, L500.2500 #### [facility] Laboratory [address] [place], [address] Neutrophils/100 WBC (Bld) 58.8 % Normal 47-70 [facility] Comment on above: Order Comment: AFTER MED Performed By: #### L 509.6001, L3410.9992, L501.5200, L500.2500 #### [facility] Laboratory [address] [place], [address] Nucleated RBC (Bld) [#/Vol] 0 10*3/uL Normal 0-5 [facility] Comment on above: Order Comment: AFTER MED Performed By: #### L 509.6001, L3410.9992, L501.5200, L500.2500 #### [facility] Laboratory [address] [place], [address] Platelet mean volume (Bld) [Entitic vol] 10.3 fL Normal 6.2-12.0 [facility] Comment on above: Order Comment: AFTER MED Performed By: #### L 509.6001, L3410.9992, L501.5200, L500.2500 #### [facility] Laboratory [address] [place], [address] Platelets (Bld) [#/Vol] 273 10*3/uL Normal 150-450 [facility] Comment on above: Order Comment: AFTER MED Performed By: #### L 509.6001, L3410.9992, L501.5200, L500.2500 #### [facility] Laboratory [address] [place], [address] RBC (Bld) [#/Vol] 5.55 10*6/uL Normal 4.6-6.2 [facility] Comment on above: Order Comment: AFTER MED Performed By: #### L 509.6001, L3410.9992, L501.5200, L500.2500 #### [facility] [address] [place], [address] RDW SD 51.9 fl High 35.1-43.9 [facility] Comment on above: Order Comment: AFTER MED Performed By: #### L 509.6001, L3410.9992, L501.5200, L500.2500 #### [facility] [address] [place], [address] WBC (Bld) [#/Vol] 6.1 10*3/uL Normal 4.4-11.0 [facility] Comment on above: Order Comment: AFTER MED Performed By: #### L 509.6001, L3410.9992, L501.5200, L500.2500 #### [facility] Laboratory [address] [place], [address] Carbon dioxide measurementOr dered By: Tony Kay on 08-20-2024 CO2 [Moles/Vol] 27.0 mmol/L 21.0-32.0 [facility] Chloride measurementOrdered By: Tony Kay on 08-20-2024 Chloride [Moles/Vol] 103 mmol/L 98-107 [facility] Comprehensive Metabolic Prof ilon 08-20-2024 Albumin [Mass/Vol] 3.2 g/dL Normal 3.2-5.0 [facility] Comment on above: Order Comment: [id number] DEXAMETHASONE SERUM FRZ Performed By: #### L 509.6001, L3410.9992, L501.5200, L500.2500 #### [facility] [address] [place], [address] Albumin/Globulin [Mass ratio] 0.7 {ratio} Low 0.9-2.4 [facility] Comment on above: Order Comment: [id number] 8 DEXAMETHASONE SERUM FRZ Performed By: #### L 509.6001, L3410.9992, L501.5200, L500.2500 #### [facility] Laboratory [address] [place], [address] ALK P 75 U/L Normal 45-117 [facility] Comment on above: Order Comment: [id number] 8 DEXAMETHASONE SERUM FRZ Performed By: #### L 509.6001, L3410.9992, L501.5200, L500.2500 #### [facility] [address] [place], [address] ALT [Catalytic activity/Vol] 38 U/L Normal 16-61 [facility] Comment on above: Order Comment: [id number] 8 DEXAMETHASONE SERUM FRZ Performed By: #### L 509.6001, L3410.9992, L501.5200, L500.2500 #### [facility] Laboratory [address] [place], [address] AST [Catalytic activity/Vol] 22 U/L Normal 15-37 [facility] Comment on above: Order Comment: [id number] 8 DEXAMETHASONE SERUM FRZ Performed By: #### L 509.6001, L3410.9992, L501.5200, L500.2500 #### [facility] [address] [place], [address] Bilirubin [Mass/Vol] 0.40 mg/dL Normal 0.20-1.00 [facility] Comment on above: Order Comment: [id number] 8 DEXAMETHASONE SERUM FRZ Result Comment: For patients on eltrombopag therapy, use of Dimension [place] TBIL is not recommended. Performed By: #### L 509.6001, L3410.9992, L501.5200, L500.2500 #### [facility] Laboratory [address] [place], [address] BUN/CRE 20.0 RATIO Normal 10-20 [facility] Comment on above: Order Comment: [id number] 8 DEXAMETHASONE SERUM FRZ Performed By: #### L 509.6001, L3410.9992, L501.5200, L500.2500 #### [facility] [address] [place], [address] CA,Total 9.5 mg/dL Normal 8.5-10.1 [facility] Comment on above: Order Comment: [id number] 8 DEXAMETHASONE SERUM FRZ Performed By: #### L 509.6001, L3410.9992, L501.5200, L500.2500 #### [facility] [address] [place], [address] Chloride [Moles/Vol] 103 mmol/L Normal 98-107 [facility] Comment on above: Order Comment: [id number] 8 DEXAMETHASONE SERUM FRZ Performed By: #### L 509.6001, L3410.9992, L501.5200, L500.2500 #### [facility] [address] [place], [address] CO2 [Moles/Vol] 27.0 mmol/L Normal 21.0-32.0 [facility] Comment on above: Order Comment: 36243 8 DEXAMETHASONE SERUM FRZ Performed By: #### L 509.6001, L3410.9992, L501.5200, L500.2500 #### [facility] Laboratory [address] [place], [address] Creatinine [Mass/Vol] 1.20 mg/dL Normal 0.70-1.[address] [facility] Comment on above: Order Comment: [id number] 8 DEXAMETHASONE SERUM FRZ Result Comment: The validity of the calculated GFR GFRAA in patients over 70 years has not been determined. Clinical correlation is essential. Performed By: #### L 509.6001, L3410.9992, L501.5200, L500.2500 #### [facility] [address] [place], [address] EST GFR - AA 77 mL/min Normal >60 [facility] Comment on above: Order Comment: [id number] 8 DEXAMETHASONE SERUM FRZ Result Comment: Afri can Congolese GFR Calc Performed By: #### L 509.6001, L3410.9992, L501.5200, L500.2500 #### [facility] Laboratory [address] [place], [address] GAP 7 Normal 5-15 [facility] Comment on above: Order Comment: [id number] 8 DEXAMETHASONE SERUM FRZ Performed By: #### L 509.6001, L3410.9992, L501.5200, L500.2500 #### [facility] [address] [place], [address] GFR/1.73 sq M.predicted among non-blacks MDRD (S/P/Bld) [Vol rate/Area] 64 mL/min/{1.73_m2} Normal >60 [facility] Comment on above: Order Comment: [id number] 8 DEXAMETHASONE SERUM FRZ Result Comment: Non- GFR Calc Performed By: #### L 509.6001, L3410.9992, L501.5200, L500.2500 #### [facility] [address] [place], [address] Globulin (S) [Mass/Vol] 4.9 g/dL High 2.2-4.[address] [facility] Comment on above: Order Comment: 90227 8 DEXAMETHASONE SERUM FRZ Performed By: #### L 509.6001, L3410.9992, L501.5200, L500.2500 #### [facility] [address] [place], [address] Glucose [Mass/Vol] 108 mg/dL High 74-106 [facility] Comment on above: Order Comment: 58595 8 DEXAMETHASONE SERUM FRZ Result Comment: Fast ing Glucose result from 100 to 125 mg/dL suggests IMPAIRED HOMEOSTASIS per A.D.A. criteria. Performed By: #### L 509.6001, L3410.9992, L501.5200, L500.2500 #### [facility] [address] [place], [address] Potassium [Moles/Vol] 3.8 mmol/L Normal 3.5-5.[address] [facility] Comment on above: Order Comment: 44703 8 DEXAMETHASONE SERUM FRZ Performed By: #### L 509.6001, L3410.9992, L501.5200, L500.2500 #### [facility] [address] [place], [address] Sodium [Moles/Vol] 137 mmol/L Normal 136-145 [facility] Comment on above: Order Comment: [id number] 8 DEXAMETHASONE SERUM FRZ Performed By: #### L 509.6001, L3410.9992, L501.5200, L500.2500 #### [facility] [address] [place], [place], [address] T PROT 8.1 g/dL Normal 6.4-8.2 [facility] Comment on above: Order Comment: 53310 8 DEXAMETHASONE SERUM FRZ Performed By: #### L 509.6001, L3410.9992, L501.5200, L500.2500 #### [facility] [address] [place], [place], [address] Urea nitrogen [Mass/Vol] 24 mg/dL High 7-18 [facility] Comment on above: Order Comment: [id number] 8 DEXAMETHASONE SERUM FRZ Performed By: #### L 509.6001, L3410.9992, L501.5200, L500.2500 #### [facility] [address] [place], [place], [address] Eosinophil percentageOrdered By: Tony Kay on 08-20-2024 Eosinophils/100 WBC (Bld) 2.1 % 0-5 [facility] Erythrocyte distribution wid th ratioOrdered By: Tony Kay on 08-20-2024 Erythrocyte distribution width (RBC) [Ratio] 16.9 % High 11.6-14.6 [facility] Erythrocyte distribution wid th standard deviationOrdered By: Tony Kay on 08-20-2024 Erythrocyte distribution width (RBC) [Entitic vol] 51.9 fL High 35.1-43.9 [facility] Estimated glomerular filtrat ion rate (GFR) AmericanOrdered By: Tony Kay on 08-20-2024 Estimated GFR (MDRD) Amer 77 mL/min >60 [facility] Comment on above: GFR Calc Ferritinon 08-20-2024 Ferritin [Mass/Vol] 164 ng/mL Normal 26-388 [facility] Comment on above: Order Comment: [id number] 8 DEXAMETHASONE SERUM FRZ Performed By: #### L 509.6001, L3410.9992, L501.5200, L500.2500 #### [facility] [address] [place], [place], [id number] Ferritin measurementOrdered By: Tony Kay on 08-20-2024 Ferritin [Mass/Vol] 164 ng/mL 26-388 [facility] Folates, (Folic Acid)on 08-08 FOLATES 5.80 ng/mL Normal 3.1-55.4 [facility] Comment on above: Order Comment: [id number] 8 DEXAMETHASONE SERUM FRZ Result Comment: Slig ht Hemolysis, Result may be falsely increased. Performed By: #### L 509.6001, L3410.9992, L501.5200, L500.2500 #### [facility] [address] [place], [place], [address] Folic acid measurementOrdere d By: Tony Kay on 08-20-2024 Folate 5.80 ng/mL 3.1-55.4 [facility] Comment on above: Slight Hemolysis, Re sult may be falsely increased. Glomerular filtration rate ( GFR) estimationOrdered By: Tony Kay on 08-20-2024 Estimated GFR (MDRD) Non-Af Amer 64 mL/min >60 [facility] Comment on above: Non- GFR Calc Glucose measurementOrdered B y: Tony Kay on 08-20-2024 Glucose [Mass/Vol] 108 mg/dL High 74-106 [facility] Comment on above: Fasting Glucose resu lt from 100 to 125 mg/dL suggests IMPAIRED HOMEOSTASIS per A.D.A. criteria. Hematocrit Auto (Bld) [Volum e fraction]Ordered By: Tony Kay on 08-20-2024 Hematocrit (Bld) [Volume fraction] 47.5 % 40-54 [facility] Hemoglobin measurementOrdere d By: Tony Kay on 08-20-2024 Hemoglobin (Bld) [Mass/Vol] 15.1 g/dL 13.0-16.5 [facility] Immature granulocytes/100 WB C Auto (Bld)Ordered By: Tony Kay on 08-20-2024 Immature granulocytes/100 WBC (Bld) 0.500 % 0.0-0.9 [facility] Comment on above: IG% - Immature Granu locytes (promyelocytes, myelocytes and metamyelocytes) > 1% indicates that a LEFT SHIFT is Present. Intact parathyroid hormone ( iPTH) measurementOrdered By: Tony Kay on 08-20-2024 Parathyroid Hormone (Intact) 58.7 pg/mL 18.4-80.1 [facility] Ironon 08-20-2024 Iron [Mass/Vol] 56 ug/dL Low 65-175 [facility] Comment on above: Order Comment: [id number] 8 DEXAMETHASONE SERUM FRZ Performed By: #### L 509.6001, L3410.9992, L501.5200, L500.2500 #### [facility] [address] [place], [address] Iron (Unsp spec) [Mass/Mass] Ordered By: Tony Kay on 08-20-2024 Iron [Mass/Vol] 56 ug/dL Low 65-175 [facility] Iron Binding Capacity,Totalo n 08-20-2024 TIBC 411 ug/dL Normal 250-450 [facility] Comment on above: Order Comment: [id number] 8 DEXAMETHASONE SERUM FRZ Performed By: #### L 509.6001, L3410.9992, L501.5200, L500.2500 #### [facility] [address] [place], [address] Laboratory - Chemistry and C hemistry - challengeOrdered By: Tony Kay on 08-20-2024 AST [Catalytic activity/Vol] 22 U/L 15-37 [facility] Lymphocytes Auto (Unsp spec) [#/Vol]Ordered By: Tony Kay on 08-20-2024 Lymphocytes (Bld) [#/Vol] 1.70 10*3/uL 0.83-4.51 [facility] Lymphocytes/100 WBC Auto (Un sp spec)Ordered By: Tony Kay on 08-20-2024 Lymphocytes/100 WBC (Bld) 27.8 % 19-41 [facility] MCV (mean corpuscular volume ) determinationOrdered By: Tony Kay on 08-20-2024 MCV (RBC) [Entitic vol] 85.6 fL 80-94 [facility] Magnesiumon 08-20-2024 Magnesium [Mass/Vol] 2.7 mg/dL High 1.6-2.6 [facility] Comment on above: Order Comment: [id number] 8 DEXAMETHASONE SERUM FRZ Performed By: #### L 509.6001, L3410.9992, L501.5200, L500.2500 #### [facility] Laboratory [address] [place], [place], [id number] Magnesium measurementOrdered By: Tony Kay on 08-20-2024 Magnesium [Mass/Vol] 2.7 mg/dL High 1.6-2.6 [facility] Mean corpuscular hemoglobin (MCH) determinationOrdered By: Tony Kay on 08-20-2024 MCH (RBC) [Entitic mass] 27.2 pg 27.0-32.0 [facility] Mean corpuscular hemoglobin concentration (MCHC) determinationOrdered By: Tony Kay on 08-20-2024 MCHC (RBC) [Mass/Vol] 31.8 g/dL Low 32-[address] [facility] Mean platelet volume determi nationOrdered By: Tony Kay on 08-20-2024 Platelet mean volume (Bld) [Entitic vol] 10.3 fL 6.2-12.0 [facility] Monocyte percentageOrdered B y: Tony Kay on 08-20-2024 Monocytes/100 WBC (Bld) 10.0 % 0-10 [facility] Neutrophil percentageOrdered By: Tony Kay on 08-20-2024 Neutrophils/100 WBC (Bld) 58.8 % 47-70 [facility] Nucleated red blood cell per centageOrdered By: Tony Kay on 08-20-2024 Nucleated RBC/100 WBC (Bld) [Ratio] 0 % 0-5 [facility] PTHINon 08-20-2024 PTH 58.7 pg/mL Normal 18.4-80.1 [facility] Comment on above: Order Comment: AFTER MED Performed By: #### L 509.6001, L3410.9992, L501.5200, L500.2500 #### [facility] Laboratory [address] [place], [place], [id number] Platelet countOrdered By: Diego Kay on 08-20-2024 Platelets (Bld) [#/Vol] 273 10*3/uL 150-450 [facility] Potassium measurementOrdered By: Tony Kay on 08-20-2024 Potassium [Moles/Vol] 3.8 mmol/L 3.5-5.[address] [facility] RBC Auto (Bld) [#/Vol]Ordere d By: Tony Kay on 08-20-2024 RBC (Bld) [#/Vol] 5.55 10*6/uL 4.6-6.2 [facility] Serum anion gap measurementO rdered By: Tony Kay on 08-20-2024 Anion gap [Moles/Vol] 7 mmol/L 5-[address] [facility] Serum globulin measurementOr dered By: Tony Kay on 08-20-2024 Globulin (S) [Mass/Vol] 4.9 g/dL High 2.2-4.2 [facility] Serum or plasma alanine sevilla otransferase (ALT) measurementOrdered By: Tony Kay on 08-20-2024 ALT [Catalytic activity/Vol] 38 U/L 16-61 [facility] Serum or plasma albumin tracy urement (mass/volume)Ordered By: Tony Kay on 08-20-2024 Albumin [Mass/Vol] 3.2 g/dL 3.2-5.0 [facility] Serum or plasma alkaline juan sphatase measurementOrdered By: Tony Kay on 08-20-2024 ALP [Catalytic activity/Vol] 75 U/L 45-117 [facility] Serum or plasma calcium tracy urement (mass/volume)Ordered By: Tony Kay on 08-20-2024 Calcium [Mass/Vol] 9.5 mg/dL 8.5-10.1 [facility] Serum or plasma creatinine m easurement (mass/volume)Ordered By: Tony Kay on 08-20-2024 Creatinine [Mass/Vol] 1.20 mg/dL 0.70-1.[address] [facility] Comment on above: The validity of the calculated GFR & GFRAA in patients over 70 years has not been determined. Clinical correlation is essential. Serum or plasma urea nitroge n measurement (mass/volume)Ordered By: Tony Kay on 08-20-2024 Urea nitrogen [Mass/Vol] 24 mg/dL High 7-18 [facility] Sodium levelOrdered By: Tony Kay on 08-20-2024 Sodium [Moles/Vol] 137 mmol/L 136-145 [facility] TIBCOrdered By: Tony Kay o n 08-20-2024 Total Iron Binding Capacity 411 ug/dL 250-450 [facility] Total proteinOrdered By: Charlette Kay on 08-20-2024 Protein [Mass/Vol] 8.1 g/dL 6.4-8.2 [facility] Vitamin B12on 08-20-2024 Cobalamin (Vitamin B12) [Mass/Vol] 625 pg/mL Normal [facility] Comment on above: Order Comment: AFTER MED Performed By: #### L 509.6001, L3410.9992, L501.5200, L500.2500 #### [facility] Laboratory [address] [place], [place], [id number] Vitamin B12 measurementOrder ed By: Tony Kay on 08-20-2024 Cobalamin (Vitamin B12) [Mass/Vol] 625 pg/mL [facility] Vitamin D,25 Hydroxyon 08-20 Vitamin D 25-OH 46.6 ng/mL Normal [facility] Comment on above: Order Comment: AFTER MED Result Comment: [place]ez min D 25(OH) Status Range Deficiency <20 ng/mL (50nmol/L) Insufficiency 20 - 30 ng/mL (50 - 75 nmol/L) Sufficiency 30 - 100 ng/mL (75 - 250 nmol/L) Toxicity >100 ng/mL (>250 nmol/L) Performed By: #### L 509.6001, L3410.9992, L501.5200, L500.2500 #### [facility] [address] [place], [place], [id number] White blood cell (WBC) count Ordered By: Tony Kay on 08-20-2024 WBC (Bld) [#/Vol] 6.1 10*3/uL 4.4-11.0 [facility] Basic Metabolic Profile (BMP )on 08-07-2024 BUN/CRE 20.3 RATIO High 10-20 [facility] Comment on above: Order Comment: [id number] 8 DEXAMETHASONE SERUM FRZ Performed By: #### L 509.6001, L3410.9992, L501.5200, L500.2500 #### [facility] Laboratory [address] [place], [address] CA,Total 9.5 mg/dL Normal 8.5-10.1 [facility] Comment on above: Order Comment: 56400 8 DEXAMETHASONE SERUM FRZ Performed By: #### L 509.6001, L3410.9992, L501.5200, L500.2500 #### [facility] [address] [place], [address] Chloride [Moles/Vol] 104 mmol/L Normal 98-107 [facility] Comment on above: Order Comment: 13175 8 DEXAMETHASONE SERUM FRZ Performed By: #### L 509.6001, L3410.9992, L501.5200, L500.2500 #### [facility] [address] [place], [address] CO2 [Moles/Vol] 27.0 mmol/L Normal 21.0-32.0 [facility] Comment on above: Order Comment: 28230 8 DEXAMETHASONE SERUM FRZ Performed By: #### L 509.6001, L3410.9992, L501.5200, L500.2500 #### [facility] [address] [place], [address] Creatinine [Mass/Vol] 1.38 mg/dL High 0.70-1.[address] [facility] Comment on above: Order Comment: 17296 8 DEXAMETHASONE SERUM FRZ Result Comment: The validity of the calculated GFR GFRAA in patients over 70 years has not been determined. Clinical correlation is essential. Performed By: #### L 509.6001, L3410.9992, L501.5200, L500.2500 #### [facility] [address] [place], [address] EST GFR - AA 66 mL/min Normal >60 [facility] Comment on above: Order Comment: [id number] 8 DEXAMETHASONE SERUM FRZ Result Comment: Afri can Congolese GFR Calc Performed By: #### L 509.6001, L3410.9992, L501.5200, L500.2500 #### [facility] [address] [place], [address] GAP 8 Normal 5-15 [facility] Comment on above: Order Comment: 01245 8 DEXAMETHASONE SERUM FRZ Performed By: #### L 509.6001, L3410.9992, L501.5200, L500.2500 #### [facility] [address] [place], [address] GFR/1.73 sq M.predicted among non-blacks MDRD (S/P/Bld) [Vol rate/Area] 54 mL/min/{1.73_m2} Low >60 [facility] Comment on above: Order Comment: 56788 8 DEXAMETHASONE SERUM FRZ Result Comment: Non- GFR Calc Performed By: #### L 509.6001, L3410.9992, L501.5200, L500.2500 #### [facility] [address] [place], [address] Glucose [Mass/Vol] 117 mg/dL High 74-106 [facility] Comment on above: Order Comment: 19975 8 DEXAMETHASONE SERUM FRZ Result Comment: Fast ing Glucose result from 100 to 125 mg/dL suggests IMPAIRED HOMEOSTASIS per A.D.A. criteria. Performed By: #### L 509.6001, L3410.9992, L501.5200, L500.2500 #### [facility] [address] [place], [address] Potassium [Moles/Vol] 4.0 mmol/L Normal 3.5-5.[address] [facility] Comment on above: Order Comment: [id number] 8 DEXAMETHASONE SERUM FRZ Performed By: #### L 509.6001, L3410.9992, L501.5200, L500.2500 #### [facility] [address] [place], [address] Sodium [Moles/Vol] 139 mmol/L Normal 136-145 [facility] Comment on above: Order Comment: 11386 8 DEXAMETHASONE SERUM FRZ Performed By: #### L 509.6001, L3410.9992, L501.5200, L500.2500 #### [facility] [address] [place], [address] Urea nitrogen [Mass/Vol] 28 mg/dL High 7-18 [facility] Comment on above: Order Comment: 26597 8 DEXAMETHASONE SERUM FRZ Performed By: #### L 509.6001, L3410.9992, L501.5200, L500.2500 #### [facility] [address] [place], [address] CBC W/Diff, Automatedon 10-3 0-2023 Absolute Lymph 1.93 X10 3/uL Normal 0.83-4.51 [facility] Comment on above: Order Comment: Order Date: 08/06/24Order Info: 0184-1 - CBCD Performed By: #### L 509.6001, L3410.9992, L501.5200, L500.2500 #### [facility] [address] [place], [address] Absolute Neut 4.5 X10 3/uL Normal 2.0-7.7 [facility] Comment on above: Order Comment: Order Date: 08/06/24Order Info: 0184-1 - CBCD Performed By: #### L 509.6001, L3410.9992, L501.5200, L500.2500 #### [facility] [address] [place], [address] Basophils/100 WBC (Bld) 0.4 % Normal 0-1 [facility] Comment on above: Order Comment: Order Date: 08/06/24Order Info: 018- - CBCD Performed By: #### L 509.6001, L3410.9992, L501.5200, L500.2500 #### [facility] [address] [place], [address] Eosinophils/100 WBC (Bld) 1.8 % Normal 0-5 [facility] Comment on above: Order Comment: Order Date: 08/06/24Order Info: 183- - CBCD Performed By: #### L 509.6001, L3410.9992, L501.5200, L500.2500 #### [facility] [address] [place], [address] Erythrocyte distribution width (RBC) [Ratio] 16.7 % High 11.6-14.6 [facility] Comment on above: Order Comment: Order Date: 08/06/24Order Info: 183- - CBCD Performed By: #### L 509.6001, L3410.9992, L501.5200, L500.2500 #### [facility] [address] [place], [address] Hematocrit (Bld) [Volume fraction] 48.1 % Normal 40-54 [facility] Comment on above: Order Comment: Order Date: 08/06/24Order Info: 018- - CBCD Performed By: #### L 509.6001, L3410.9992, L501.5200, L500.2500 #### [facility] [address] [place], [address] Hemoglobin (Bld) [Mass/Vol] 15.6 g/dL Normal 13.0-16.5 [facility] Comment on above: Order Comment: Order Date: 08/06/24Order Info: 018- - CBCD Performed By: #### L 509.6001, L3410.9992, L501.5200, L500.2500 #### [facility] [address] [place], [address] IG% 0.300 Normal 0.0-0.9 [facility] Comment on above: Order Comment: Order Date: 08/06/24Order Info: 018- - CBCD Result Comment: IG% - Immature Granulocytes (promyelocytes, myelocytes and metamyelocytes) > 1% indicates that a LEFT SHIFT is Present. Performed By: #### L 509.6001, L3410.9992, L501.5200, L500.2500 #### [facility] [address] [place], [address] Lymphocytes/100 WBC (Bld) 26.3 % Normal 19-41 [facility] Comment on above: Order Comment: Order Date: 08/06/24Order Info: 018- - CBCD Performed By: #### L 509.6001, L3410.9992, L501.5200, L500.2500 #### [facility] [address] [place], [address] MCH (RBC) [Entitic mass] 26.9 pg Low 27.0-32.0 [facility] Comment on above: Order Comment: Order Date: 08/06/24Order Info: 018- - CBCD Performed By: #### L 509.6001, L3410.9992, L501.5200, L500.2500 #### [facility] [address] [place], [address] MCHC (RBC) [Mass/Vol] 32.4 g/dL Normal 32-[address] [facility] Comment on above: Order Comment: Order Date: 08/06/24Order Info: 018- - CBCD Performed By: #### L 509.6001, L3410.9992, L501.5200, L500.2500 #### [facility] [address] [place], [address] MCV (RBC) [Entitic vol] 82.8 fL Normal 80-94 [facility] Comment on above: Order Comment: Order Date: 08/06/24Order Info: 183- - CBCD Performed By: #### L 509.6001, L3410.9992, L501.5200, L500.2500 #### [facility] [address] [place], [address] Monocytes/100 WBC (Bld) 9.7 % Normal 0-10 [facility] Comment on above: Order Comment: Order Date: 08/06/24Order Info: 183- - CBCD Performed By: #### L 509.6001, L3410.9992, L501.5200, L500.2500 #### [facility] [address] [place], [address] Neutrophils/100 WBC (Bld) 61.5 % Normal 47-70 [facility] Comment on above: Order Comment: Order Date: 08/06/24Order Info: 183- - CBCD Performed By: #### L 509.6001, L3410.9992, L501.5200, L500.2500 #### [facility] [address] [place], [address] Nucleated RBC (Bld) [#/Vol] 0 10*3/uL Normal 0-5 [facility] Comment on above: Order Comment: Order Date: 08/06/24Order Info: 018- - CBCD Performed By: #### L 509.6001, L3410.9992, L501.5200, L500.2500 #### [facility] [address] [place], [address] Platelet mean volume (Bld) [Entitic vol] 10.0 fL Normal 6.2-12.0 [facility] Comment on above: Order Comment: Order Date: 08/06/24Order Info: 018- - CBCD Performed By: #### L 509.6001, L3410.9992, L501.5200, L500.2500 #### [facility] [address] [place], [address] Platelets (Bld) [#/Vol] 283 10*3/uL Normal 150-450 [facility] Comment on above: Order Comment: Order Date: 08/06/24Order Info: 018-1 - CBCD Performed By: #### L 509.6001, L3410.9992, L501.5200, L500.2500 #### [facility] [address] [place], [address] RBC (Bld) [#/Vol] 5.81 10*6/uL Normal 4.6-6.2 [facility] Comment on above: Order Comment: Order Date: 08/06/24Order Info: 018- - CBCD Performed By: #### L 509.6001, L3410.9992, L501.5200, L500.2500 #### [facility] [address] [place], [address] RDW SD 49.6 fl High 35.1-43.9 [facility] Comment on above: Order Comment: Order Date: 08/06/24Order Info: 018- - CBCD Performed By: #### L 509.6001, L3410.9992, L501.5200, L500.2500 #### [facility] [address] [place], [address] WBC (Bld) [#/Vol] 7.3 10*3/uL Normal 4.4-11.0 [facility] Comment on above: Order Comment: Order Date: 08/06/24Order Info: 0184-1 - CBCD Performed By: #### L 509.6001, L3410.9992, L501.5200, L500.2500 #### [facility] [address] [place], [address] Ferritinon 08-06-2024 Ferritin [Mass/Vol] 173 ng/mL Normal 26-388 [facility] Comment on above: Order Comment: Order Date: 08/06/24Order Info: 2498-4 - FEOrder Info: 2276-4 - LUKE Performed By: #### L 509.6001, L3410.9992, L501.5200, L500.2500 #### [facility] [address] [place], [address] Ironon 08-06-2024 Iron [Mass/Vol] 51 ug/dL Low 65-175 [facility] Comment on above: Order Comment: Order Date: 08/06/24Order Info: [id number] - FEOrder Info: 2276-4 - LUKE Performed By: #### L 509.6001, L3410.9992, L501.5200, L500.2500 #### [facility] [address] [place], [address] Gastroenterology Visit Repor ton 07-02-2024 Gastroenterology Visit Report [facility]enterology [address] [place] [address] OFFICE VISIT Date of Service: 07/02/24 MR#: [id number] Acct: [id number] Name: BALTAZAR BAY Rep #: [id number] : 1955 Provider: Ben Emmanuel DO Age/Sex: 68/M Location: [facility] Status: Signed Intake Vital Signs 06/16/24 07:28 [...] Contact 9.7. (more content not included)... Normal [facility] Colonoscopy Reporton 024 Colonoscopy Report [facility] Medical Records Department [address] [place] [address] Colonoscopy Report MR#: [id number] Acct: [id number] Name: BALTAZAR BAY Rep #: [id number] : 1955 68 From: Ben Emmanuel DO PCP: Dr. Tony Kay MD Status:REG [facility] Patient Name: Baltazar Bay Procedure Date: 06/16/2024 [...] for surveillance. Procedure Code(s): --- Professional --- 71533, Colonoscopy, flexible; with biopsy, single or multiple CPT copyright 2021 [employer]. All rights reserved. The codes documented in this report are preliminary and upon puttying and calking supervisor review may be revised to meet current compliance requirements. Ben Emmanuel DO 06/16/2024 8:50:44 AM This report has been sig (more content not included)... Normal [facility] MR/POSTOP.LANCEon 06-16-2024 MR/POSTOP.[facility] Medical Records Department [address] [place] [address] Anesthesia Postop Eval I 06/16/24 0847 MR#: [id number] Acct: [id number] Name: BALTAZAR BAY Rep #: [id number] : 1955 68 From: Shay Moses PCP: Dr. Tony Kay MD Status:REG SDC Y Race: C Location: [place] [address] Anesthesia: Postop Eval I Current Vital Signs [...] Eval 1 completed: Yes 06/16/2448 Date Shay Bartholomewkristinadiego Signature: Date CC: Signed Normal [facility] MR/[id number] 06-16-2024 [facility] Medical Records Department [address] [place] [address] Anesthesia Postop Eval II 06/16/24 0905 MR#: [id number] Acct: [id number] Name: BALTAZAR BAY HUNG Rep #: [id number] : 1955 68 From: Herminio Calvert MD PCP: Dr. Tony Kay MD Status:REG [facility] Y Race: C Location: [place] [address] Anesthesia Postop Eval I Sum Postop Eval [...] nausea: No Vomiting: No 06/16/24904 Date Herminio Crook Signature: Date CC: Signed Normal [facility] Surgery Specimen Level Jocelin 06-16-2024 Surgery Specimen Level IV Patient Age/Sex Location Account Attending Physician BALTAZAR BAY 68/M EN [id number] Ben Emmanuel, DO Specimen: [id number] Received: 06/16/24-1226 Status: DISHA Garcia Num: [id number] Spec Type: COLON BX Subm Dr: Ben Emmanuel DO HEADER OPERATION: Colonoscopy, biopsy PRE-OP DIAGNOSIS: Diarrhea, abdominal pain TISSUE SUBMITTED: A- Cecal biopsy, B- Random colon biopsy, C- Rectal polyp biopsy MICROSCOPIC DIAGNOSIS A. Cecum, biopsy: No pathologic change. B. Colon, random biopsy: No pathologic change. C. Rectal polyp, biopsy: Hyperplastic polyp. [facility] 06/17/2024 MICROSCOPIC DESCRIPTION Slides are reviewed. GROSS [...] totally submitted in one cassette. 06/16/2024 TC:5 [facility]:[id number] Patient Age/Sex Location Account Attending Physician MATILDABALTAZAR PERSAUD 68/M EN [id number] Ben Emmanuel DO Signed (signature on file) Dr. Ras Armas DO 06/17/24 1202 [facility] Comment on above: Performed By: #### P SUIV ####[facility] [address] [place], [address] Wound Cultureon 06-15-2024 #2 Possible skin contamination, further Identification and [...] S Vancomycin Islt RICKI <=0.5 S Normal [facility] Comment on above: Performed By: #### M 100.3000, M1.1999 ####[facility] [address] [place], [address] Gram Stainon 06-13-2024 GS Gram Stain Rare Epithelial cells No organisms seen No White Blood Cells Normal [facility] Comment on above: Performed By: #### M 100.3000, M1.1999 ####[facility] [address] [place], [address] Basophil percentageOrdered B y: Pepito Corona on 01-22-2024 Basophil percentage 5.71 ng/mL 0.0-4.0 [facility] Comment on above: This test was perfor med using the TPSA assay method for the[employer] chemistry system. Values obtained with differentassay methods cannot be used interchangably.When changing PSA assays in the course of monitoring apatient, additional sequential testing should be carriedout to confirm baseline values. Chloride [Moles/Vol] 102 mmol/L 98-107 [facility] Glucose [Mass/Vol] 127 mg/dL 74-106 [facility] Comment on above: Fasting Glucose resu lt greater than or equal to 126 mg/dL suggests DIABETES MELLITUS per A.D.A. criteria. Potassium [Moles/Vol] 3.6 mmol/L 3.5-5.[address] [facility] Sodium [Moles/Vol] 138 mmol/L 136-145 [facility] Laboratory - Chemistry and C hemistry - challengeOrdered By: Pepito Corona on 01-22-2024 CO2 [Moles/Vol] 30.0 mmol/L 21.0-32.0 [facility] Urea nitrogen/Creatinine [Mass ratio] 22.1 mg/mg 10- [facility] No Panel InformationOrdered By: Pepito Corona on 01-22-2024 Estimated GFR (MDRD) Amer 58 mL/min >60 [facility] Comment on above: GFR Calc Estimated GFR (MDRD) Non-Af Amer 48 mL/min >60 [facility] Comment on above: Non- GFR Calc SS-A/Ro IgG Antibody < 0.2 AI 0.0-0.9 [facility] SS-B/La IgG Antibody < 0.2 AI 0.0-0.9 [facility] Comment on above: Performed at: [facility] [employer] [address] [id number] Director: Hesham Christopher PhD, Phone: [phone] Serum or plasma calcium tracy urement (mass/volume)Ordered By: Pepito Corona on 01-22-2024 Calcium [Mass/Vol] 9.5 mg/dL 8.5-10.1 [facility] Serum or plasma creatinine m easurement (mass/volume)Ordered By: Pepito Corona on 01-22-2024 Creatinine [Mass/Vol] 1.54 mg/dL 0.70-1.[address] [facility] Comment on above: The validity of the calculated GFR & GFRAA in patients over 70 years has not been determined. Clinical correlation is essential. Serum or plasma urea nitroge n measurement (mass/volume)Ordered By: Pepito Corona on 01-22-2024 Urea nitrogen [Mass/Vol] 34 mg/dL 7-18 [facility] Thin prep Papanicolaou smear with manual screeningOrdered By: Pepito Corona on 01-22-2024 Thin prep Papanicolaou smear with manual screening 6 5-15 [facility] Basophil percentageOrdered B y: Tony Kay on 12-28-2023 Bilirubin [Mass/Vol] 0.40 mg/dL 0.20-1.00 [facility] Comment on above: For patients on eltr ombopag therapy, use of Dimension [place] TBIL is not recommended. Chloride [Moles/Vol] 100 mmol/L 98-107 [facility] Glucose [Mass/Vol] 117 mg/dL 74-106 [facility] Comment on above: Fasting Glucose resu lt from 100 to 125 mg/dL suggests IMPAIRED HOMEOSTASIS per A.D.A. criteria. Potassium [Moles/Vol] 3.7 mmol/L 3.5-5.[address] [facility] Protein [Mass/Vol] 8.1 g/dL 6.4-8.2 [facility] Sodium [Moles/Vol] 137 mmol/L 136-145 [facility] Laboratory - Chemistry and C hemistry - challengeOrdered By: Tony Kay on 12-28-2023 Albumin/Globulin [Mass ratio] 0.7 {ratio} 0.9-2.4 [facility] ALP [Catalytic activity/Vol] 74 U/L 45-117 [facility] ALT [Catalytic activity/Vol] 34 U/L 16-61 [facility] CO2 [Moles/Vol] 31.0 mmol/L 21.0-32.0 [facility] Globulin (S) [Mass/Vol] 4.7 g/dL 2.2-4.2 [facility] Urea nitrogen/Creatinine [Mass ratio] 21.7 mg/mg 10-20 [facility] No Panel InformationOrdered By: Tony Kay on 12-28-2023 C-Reactive Protein Extended Range 12.20 mg/L 0.0-3.0 [facility] Comment on above: C-Reactive Protein ( CRP) provides useful information for thediagnosis, therapy and monitoring of inflammatory processesand associated diseases. For the evaluation of Relative Riskfor Cardiovascular Disease, a High Sensitivity CRP (HSCRP)should be ordered. Estimated GFR (MDRD) Amer 71 mL/min >60 [facility] Comment on above: GFR Calc Estimated GFR (MDRD) Non-Af Amer 59 mL/min >60 [facility] Comment on above: Non- GFR Calc Serum or plasma calcium tracy urement (mass/volume)Ordered By: Tony Kay on 12-28-2023 Calcium [Mass/Vol] 9.5 mg/dL 8.5-10.1 [facility] Serum or plasma creatinine m easurement (mass/volume)Ordered By: Tony Kay on 12-28-2023 Creatinine [Mass/Vol] 1.29 mg/dL 0.70-1.[address] [facility] Comment on above: The validity of the calculated GFR & GFRAA in patients over 70 years has not been determined. Clinical correlation is essential. Serum or plasma urea nitroge n measurement (mass/volume)Ordered By: Tony Kay on 12-28-2023 Urea nitrogen [Mass/Vol] 28 mg/dL 7-18 [facility] Thin prep Papanicolaou smear with manual screeningOrdered By: Tony Kay on 12-28-2023 Thin prep Papanicolaou smear with manual screening 3.4 g/dL 3.2-5.0 [facility] Thin prep Papanicolaou smear with manual screening 22 U/L 15-37 [facility] Thin prep Papanicolaou smear with manual screening 6 5-15 [facility] Basophil percentageOrdered B y: Tony Kay on 12-14-2023 Chloride [Moles/Vol] 102 mmol/L 98-107 [facility] Glucose [Mass/Vol] 113 mg/dL 74-106 [facility] Comment on above: Fasting Glucose resu lt from 100 to 125 mg/dL suggests IMPAIRED HOMEOSTASIS per A.D.A. criteria. Potassium [Moles/Vol] 4.0 mmol/L 3.5-5.[address] [facility] Sodium [Moles/Vol] 138 mmol/L 136-145 [facility] Laboratory - Chemistry and C hemistry - challengeOrdered By: Tony Kay on 12-14-2023 CO2 [Moles/Vol] 29.0 mmol/L 21.0-32.0 [facility] Magnesium [Mass/Vol] 2.5 mg/dL 1.6-2.6 [facility] Urea nitrogen/Creatinine [Mass ratio] 23.9 mg/mg 10-20 [facility] No Panel InformationOrdered By: Tony Kay on 12-14-2023 C-Reactive Protein Extended Range 9.94 mg/L 0.0-3.0 [facility] Comment on above: C-Reactive Protein ( CRP) provides useful information for thediagnosis, therapy and monitoring of inflammatory processesand associated diseases. For the evaluation of Relative Riskfor Cardiovascular Disease, a High Sensitivity CRP (HSCRP)should be ordered. Estimated GFR (MDRD) Amer 68 mL/min >60 [facility] Comment on above: GFR Calc Estimated GFR (MDRD) Non-Af Amer 56 mL/min >60 [facility] Comment on above: Non- GFR Calc Serum or plasma calcium tracy urement (mass/volume)Ordered By: Tony Kay on 12-14-2023 Calcium [Mass/Vol] 9.6 mg/dL 8.5-10.1 [facility] Serum or plasma creatinine m easurement (mass/volume)Ordered By: Tony Kay on 12-14-2023 Creatinine [Mass/Vol] 1.34 mg/dL 0.70-1.[address] [facility] Comment on above: The validity of the calculated GFR & GFRAA in patients over 70 years has not been determined. Clinical correlation is essential. Serum or plasma urea nitroge n measurement (mass/volume)Ordered By: Tony Kay on 12-14-2023 Urea nitrogen [Mass/Vol] 32 mg/dL 7-18 [facility] Thin prep Papanicolaou smear with manual screeningOrdered By: Tony Kay on 12-14-2023 Thin prep Papanicolaou smear with manual screening 7 5-15 [facility] No Panel InformationOrdered By: Ben Emmanuel on 11-27-2023 C-Reactive Protein Extended Range 14.10 mg/L 0.0-3.0 [facility] Comment on above: C-Reactive Protein ( CRP) provides useful information for thediagnosis, therapy and monitoring of inflammatory processesand associated diseases. For the evaluation of Relative Riskfor Cardiovascular Disease, a High Sensitivity CRP (HSCRP)should be ordered. Basophil percentageOrdered B y: Tony Kay on 11-07-2023 Chloride [Moles/Vol] 105 mmol/L 98-107 [facility] Glucose [Mass/Vol] 121 mg/dL 74-106 [facility] Comment on above: Fasting Glucose resu lt from 100 to 125 mg/dL suggests IMPAIRED HOMEOSTASIS per A.D.A. criteria. Potassium [Moles/Vol] 4.6 mmol/L 3.5-5.[address] [facility] Sodium [Moles/Vol] 135 mmol/L 136-145 [facility] Laboratory - Chemistry and C hemistry - challengeOrdered By: Tony Kay on 11-07-2023 CO2 [Moles/Vol] 27.0 mmol/L 21.0-32.0 [facility] Magnesium [Mass/Vol] 2.9 mg/dL 1.6-2.6 [facility] Urea nitrogen/Creatinine [Mass ratio] 25.4 mg/mg 10-20 [facility] No Panel InformationOrdered By: Tony Kay on 11-07-2023 Estimated GFR (MDRD) Amer 71 mL/min >60 [facility] Comment on above: GFR Calc Estimated GFR (MDRD) Non-Af Amer 58 mL/min >60 [facility] Comment on above: Non- GFR Calc Serum or plasma calcium tracy urement (mass/volume)Ordered By: Tony Kay on 11-07-2023 Calcium [Mass/Vol] 9.7 mg/dL 8.5-10.1 [facility] Serum or plasma creatinine m easurement (mass/volume)Ordered By: Tony Kay on 11-07-2023 Creatinine [Mass/Vol] 1.30 mg/dL 0.70-1.[address] [facility] Comment on above: The validity of the calculated GFR & GFRAA in patients over 70 years has not been determined. Clinical correlation is essential. Serum or plasma urea nitroge n measurement (mass/volume)Ordered By: Tony Kay on 11-07-2023 Urea nitrogen [Mass/Vol] 33 mg/dL 7-18 [facility] Thin prep Papanicolaou smear with manual screeningOrdered By: Tony Kay on 11-07-2023 Thin prep Papanicolaou smear with manual screening 3 5-15 [facility] Basophil percentageOrdered B y: Tony Kay on 09-24-2023 Chloride [Moles/Vol] 104 mmol/L 98-107 [facility] Glucose [Mass/Vol] 123 mg/dL 74-106 [facility] Comment on above: Fasting Glucose resu lt from 100 to 125 mg/dL suggests IMPAIRED HOMEOSTASIS per A.D.A. criteria. Potassium [Moles/Vol] 4.1 mmol/L 3.5-5.[address] [facility] Sodium [Moles/Vol] 137 mmol/L 136-145 [facility] Laboratory - Chemistry and C hemistry - challengeOrdered By: Tony Kay on 09-24-2023 CO2 [Moles/Vol] 28.0 mmol/L 21.0-32.0 [facility] Magnesium [Mass/Vol] 2.7 mg/dL 1.6-2.6 [facility] Urea nitrogen/Creatinine [Mass ratio] 22.2 mg/mg 10-20 [facility] No Panel InformationOrdered By: Tony Kay on 09-24-2023 Estimated GFR (MDRD) Amer 68 mL/min >60 [facility] Comment on above: GFR Calc Estimated GFR (MDRD) Non-Af Amer 56 mL/min >60 [facility] Comment on above: Non- GFR Calc Serum or plasma calcium tracy urement (mass/volume)Ordered By: Tony Kay on 09-24-2023 Calcium [Mass/Vol] 9.4 mg/dL 8.5-10.1 [facility] Serum or plasma creatinine m easurement (mass/volume)Ordered By: Tony Kay on 09-24-2023 Creatinine [Mass/Vol] 1.35 mg/dL 0.70-1.[address] [facility] Comment on above: The validity of the calculated GFR & GFRAA in patients over 70 years has not been determined. Clinical correlation is essential. Serum or plasma urea nitroge n measurement (mass/volume)Ordered By: Tony Kay on 09-24-2023 Urea nitrogen [Mass/Vol] 30 mg/dL -18 [facility] Thin prep Papanicolaou smear with manual screeningOrdered By: Tony Kay on 09-24-2023 Thin prep Papanicolaou smear with manual screening 5 5-15 [facility] Basophil percentageOrdered B y: Tony Kay on 09-13-2023 Chloride [Moles/Vol] 104 mmol/L 98-107 [facility] Glucose [Mass/Vol] 122 mg/dL 74-106 [facility] Comment on above: Fasting Glucose resu lt from 100 to 125 mg/dL suggests IMPAIRED HOMEOSTASIS per A.D.A. criteria. Potassium [Moles/Vol] 4.1 mmol/L 3.5-5.[address] [facility] Sodium [Moles/Vol] 136 mmol/L 136-145 [facility] Laboratory - Chemistry and C hemistry - challengeOrdered By: Tony Kay on 09-13-2023 CO2 [Moles/Vol] 28.0 mmol/L 21.0-32.0 [facility] Urea nitrogen/Creatinine [Mass ratio] 23.7 mg/mg 10-20 [facility] No Panel InformationOrdered By: Tony Kay on 09-13-2023 Estimated GFR (MDRD) Amer 70 mL/min >60 [facility] Comment on above: GFR Calc Estimated GFR (MDRD) Non-Af Amer 58 mL/min >60 [facility] Comment on above: Non- GFR Calc Serum or plasma calcium tracy urement (mass/volume)Ordered By: Tony Kay on 09-13-2023 Calcium [Mass/Vol] 9.5 mg/dL 8.5-10.1 [facility] Serum or plasma creatinine m easurement (mass/volume)Ordered By: Tony Kay on 09-13-2023 Creatinine [Mass/Vol] 1.31 mg/dL 0.70-1.[address] [facility] Comment on above: The validity of the calculated GFR & GFRAA in patients over 70 years has not been determined. Clinical correlation is essential. Serum or plasma urea nitroge n measurement (mass/volume)Ordered By: Tony Kay on 09-13-2023 Urea nitrogen [Mass/Vol] 31 mg/dL 7-18 [facility] Thin prep Papanicolaou smear with manual screeningOrdered By: Tony Kay on 09-13-2023 Thin prep Papanicolaou smear with manual screening 4 5-15 [facility] Basophil percentageOrdered B y: Tony Kay on 08-14-2023 Chloride [Moles/Vol] 102 mmol/L 98-107 [facility] Glucose [Mass/Vol] 118 mg/dL 74-106 [facility] Comment on above: Fasting Glucose resu lt from 100 to 125 mg/dL suggests IMPAIRED HOMEOSTASIS per A.D.A. criteria. Potassium [Moles/Vol] 4.1 mmol/L 3.5-5.[address] [facility] Comment on above: Slight Hemolysis, Re sult may be falsely increased. Sodium [Moles/Vol] 135 mmol/L 136-145 [facility] Laboratory - Chemistry and C hemistry - challengeOrdered By: Tnoy Kay on 08-14-2023 CO2 [Moles/Vol] 31.0 mmol/L 21.0-32.0 [facility] Magnesium [Mass/Vol] 2.4 mg/dL 1.6-2.6 [facility] Comment on above: Slight Hemolysis, Re sult may be falsely increased. Urea nitrogen/Creatinine [Mass ratio] 23.1 mg/mg 10-20 [facility] No Panel InformationOrdered By: Tony Kay on 08-14-2023 Estimated GFR (MDRD) Amer 77 mL/min >60 [facility] Comment on above: GFR Calc Estimated GFR (MDRD) Non-Af Amer 64 mL/min >60 [facility] Comment on above: Non- GFR Calc Serum or plasma calcium tracy urement (mass/volume)Ordered By: Tony Kay on 08-14-2023 Calcium [Mass/Vol] 9.3 mg/dL 8.5-10.1 [facility] Serum or plasma creatinine m easurement (mass/volume)Ordered By: Tony Kay on 08-14-2023 Creatinine [Mass/Vol] 1.21 mg/dL 0.70-1.[address] [facility] Comment on above: The validity of the calculated GFR & GFRAA in patients over 70 years has not been determined. Clinical correlation is essential. Serum or plasma urea nitroge n measurement (mass/volume)Ordered By: Tony Kay on 08-14-2023 Urea nitrogen [Mass/Vol] 28 mg/dL 7-18 [facility] Thin prep Papanicolaou smear with manual screeningOrdered By: Tony Kay on 08-14-2023 Thin prep Papanicolaou smear with manual screening 2 5-15 [facility] Basophil percentageOrdered B y: Rodney Salvador on 06-15-2023 Chloride [Moles/Vol] 104 mmol/L 98-107 [facility] Glucose [Mass/Vol] 113 mg/dL 74-106 [facility] Comment on above: Fasting Glucose resu lt from 100 to 125 mg/dL suggests IMPAIRED HOMEOSTASIS per A.D.A. criteria. Potassium [Moles/Vol] 4.5 mmol/L 3.5-5.[address] [facility] Sodium [Moles/Vol] 137 mmol/L 136-145 [facility] Laboratory - Chemistry and C hemistry - challengeOrdered By: Rodney Salvador on 06-15-2023 CO2 [Moles/Vol] 29.0 mmol/L 21.0-32.0 [facility] Magnesium [Mass/Vol] 2.6 mg/dL 1.6-2.6 [facility] Urea nitrogen/Creatinine [Mass ratio] 23.7 mg/mg 10-20 [facility] No Panel InformationOrdered By: Rodney Salvador on 06-15-2023 Estimated GFR (MDRD) Amer 70 mL/min >60 [facility] Comment on above: GFR Calc Estimated GFR (MDRD) Non-Af Amer 58 mL/min >60 [facility] Comment on above: Non- GFR Calc Vitamin B6 Level 28.7 ug/L 3.4-65.2 [facility] Comment on above: Deficiency: <3.4 Mar ginal: 3.4 - 5.1 Adequate: >5.1Performed at: - [facility] [id number] Director: Carlos Sim MD, Phone: [phone] Serum or plasma calcium tracy urement (mass/volume)Ordered By: Rodney Salvador on 06-15-2023 Calcium [Mass/Vol] 9.2 mg/dL 8.5-10.1 [facility] Serum or plasma creatinine m easurement (mass/volume)Ordered By: Rodney Salvador on 06-15-2023 Creatinine [Mass/Vol] 1.31 mg/dL 0.70-1.[address] [facility] Comment on above: The validity of the calculated GFR & GFRAA in patients over 70 years has not been determined. Clinical correlation is essential. Serum or plasma urea nitroge n measurement (mass/volume)Ordered By: Rodney Salvador on 06-15-2023 Urea nitrogen [Mass/Vol] 31 mg/dL 7-18 [facility] Thin prep Papanicolaou smear with manual screeningOrdered By: Rodney Salvador on 06-15-2023 Thin prep Papanicolaou smear with manual screening 4 5-15 [facility] No Panel InformationOrdered By: Ben Emmanuel on 06-04-2023 Giardia Antigen (RICKI) [facility] Giardia Antigen (RICKI) [facility] Miscellaneous Test E [facility] Comment on above: Salmonella/Shigella Screen No Salmonella or Shigella recovered.Campylobacter Culture No Campylobacter species isolated.E coli Shiga Toxin EIA Negative ____ TESTING PERFORMED AT [facility]. ORIGINAL REPORT ON FILE IN LAB CONTAINS ADDITIONAL TEST SITE INFORMATION. Stool Calprotectin 13 ug/g 0-120 [facility] Comment on above: Concentration Interp retation Follow-Up< 5 - 50 ug/g Normal None>50 -120 ug/g Borderline Re-evaluate in 4-6 weeks >120 ug/g Abnormal Repeat as clinically indicatedPerformed at: [address] [id number] Director: Hesham Christopher PhD, Phone: [phone] at: [address] [id number] Director: Carlos Sim MD, Phone: [phone] Stool Neutral Fats Normal . [facility] Comment on above: Normal (<60 Droplets /HPF) Stool Pancreatic Elastase 74 >200 [facility] Comment on above: Result Units: ug [address]gResults verified by repeat testing Severe Pancreatic Insufficiency: <100 Moderate Pancreatic Insufficiency: 100 - 200 Normal: >200Performed at: [address] [id number] Director: Carlos Sim MD, Phone: [phone] Ova and parasitesOrdered By: Ben Emmanuel on 06-04-2023 Ova and parasites identified LM Nom (Unsp spec) [facility] Ova and parasites identified LM Nom (Unsp spec) [facility] Qualitative fecal fat or lip idsOrdered By: Ben Emmanuel on 06-04-2023 Fat Ql (Stl) Increased . [facility] Comment on above: Normal (<100 Droplet s/HPF) Atypical perinuclear antineu trophil cytoplasmic antibodies measurementOrdered By: Ben Emmanuel on 06-01-2023 Neutrophil cytoplasmic Ab.perinuclear.atypical IF (S) [Titer] <1:20 titer Neg:<1:20 [facility] Comment on above: The atypical pANCA p attern has been observed in asignificant percentage of patients with ulcerative colitis,primary sclerosing cholangitis and autoimmune hepatitis.Performed at: - [facility] [address] [id number] Director: Hesham Christopher PhD, Phone: [phone] at: - [facility] [id number] Director: Carlos Sim MD, Phone: [phone] Basophil percentageOrdered B y: Ben Emmanuel on 06-01-2023 Basophil percentage < 0.2 AI 0.0-0.9 [facility] Bilirubin [Mass/Vol] 0.40 mg/dL 0.20-1.00 [facility] Comment on above: For patients on eltr ombopag therapy, use of Dimension [place] TBIL is not recommended. Chloride [Moles/Vol] 104 mmol/L 98-107 [facility] Glucose [Mass/Vol] 110 mg/dL 74-106 [facility] Comment on above: Fasting Glucose resu lt from 100 to 125 mg/dL suggests IMPAIRED HOMEOSTASIS per A.D.A. criteria. Potassium [Moles/Vol] 3.5 mmol/L 3.5-5.[address] [facility] Protein [Mass/Vol] 8.2 g/dL 6.4-8.2 [facility] Sodium [Moles/Vol] 139 mmol/L 136-145 [facility] Erythrocyte sedimentation ra teOrdered By: Ben Emmanuel on 06-01-2023 ESR (Bld) [Velocity] 39 mm/h 0-20 [facility] Interpretation of serum or p lasma protein pattern by immunofixation (narrative resultOrdered By: Ben Emmanuel on 06-01-2023 Protein Fractions Immunofixation Harsha [Interp] See comment [facility] Comment on above: Result: Not Observed Laboratory - Chemistry and C hemistry - challengeOrdered By: Ben Emmanuel on 06-01-2023 ALP [Catalytic activity/Vol] 72 U/L 45-117 [facility] ALT [Catalytic activity/Vol] 41 U/L 16-61 [facility] CO2 [Moles/Vol] 28.0 mmol/L 21.0-32.0 [facility] Urea nitrogen/Creatinine [Mass ratio] 23.1 mg/mg 10-20 [facility] No Panel InformationOrdered By: Ben Emmanuel on 06-01-2023 Addendum Document Comment . [facility] Comment on above: Protein electrophore sis scan will follow via computer,mail, or building maintenance technician delivery. Centromere B Antibody <0.2 AI 0.0-0.[address] [facility] Endomysial IgA Antibody Negative Negative [facility] Estimated GFR (MDRD) Amer 80 mL/min >60 [facility] Comment on above: GFR Calc Estimated GFR (MDRD) Non-Af Amer 66 mL/min >60 [facility] Comment on above: Non- GFR Calc Immunoglobulin E 229 IU/mL 6-495 [facility] WEAVING INSPECTOR Antibody <0.2 AI 0.0-0.9 [facility] Serum DNA double strand anti body assay (units/volume)Ordered By: Ben Emmanuel on 06-01-2023 DNA double strand Ab Qn (S) 4 [IU]/mL 0-9 [facility] Comment on above: Negative <5 Equivoca l 5 - 9 Positive >[address]-1 antibody assay (u nits/volume)Ordered By: Ben Emmanuel on 06-01-2023 Court-1 extractable nuclear Ab Qn (S) <0.2 AI 0.0-0.9 [facility] Serum Scl-70 extractable nuc lear antibody assay (units/volume)Ordered By: Ben Emmanuel on 06-01-2023 SCL-70 extractable nuclear Ab Qn (S) <0.2 AI 0.0-0.9 [facility] Serum Kay extractable nucl ear antibody detectionOrdered By: Ben Emmanuel on 06-01-2023 Kay extractable nuclear Ab Ql (S) <0.2 AI 0.0-0.9 [facility] Serum [id number] measu rement by electrophoresisOrdered By: Ben Emmanuel on 06-01-2023 Alpha 1 globulin Elph [Mass/Vol] 0.3 g/dL 0.0-0.4 [facility] Alpha 1 globulin Elph [Mass/Vol] 0.8 g/dL 0.4-1.0 [facility] Serum classic neutrophil cyt oplasmic antibody assay (units/volume)Ordered By: Ben Emmanuel on 06-01-2023 Neutrophil cytoplasmic Ab.classic Qn (S) <1:20 titer Neg:<1:20 [facility] Serum globulin measurement ( mass/volume)Ordered By: Ben Emmanuel on 06-01-2023 Globulin (S) [Mass/Vol] 3.7 g/dL 2.2-3.9 [facility] Serum or plasma C reactive p rotein measurement (mass/volume)Ordered By: Ben Emmanuel on 06-01-2023 CRP [Mass/Vol] 12.50 mg/L 0.0-3.0 [facility] Comment on above: C-Reactive Protein ( CRP) provides useful information for thediagnosis, therapy and monitoring of inflammatory processesand associated diseases. For the evaluation of Relative Riskfor Cardiovascular Disease, a High Sensitivity CRP (HSCRP)should be ordered. Serum or plasma IgA measurem ent (mass/volume)Ordered By: Ben Emmanuel on 06-01-2023 IgA [Mass/Vol] 378 mg/dL 61-437 [facility] Serum or plasma IgG measurem ent (mass/volume)Ordered By: Ben Emmanuel on 06-01-2023 IgG [Mass/Vol] 1498 mg/dL 603-1613 [facility] Serum or plasma IgM measurem ent (mass/volume)Ordered By: Ben Emmanuel on 06-01-2023 IgM [Mass/Vol] 121 mg/dL 20-172 [facility] Serum or plasma albumin tracy urement (mass/volume)Ordered By: Ben Emmanuel on 06-01-2023 Albumin [Mass/Vol] 3.6 g/dL 2.9-4.4 [facility] Serum or plasma albumin/glob ulin mass ratioOrdered By: Ben Emmanuel on 06-01-2023 Albumin/Globulin [Mass ratio] 0.8 {ratio} 0.9-2.4 [facility] Serum or plasma beta globuli n measurement by electrophoresis (mass/volume)Ordered By: Ben Emmanuel on 08-25-2023 Beta globulin Elph [Mass/Vol] 1.4 g/dL 0.7-1.3 [facility] Serum or plasma calcium tracy urement (mass/volume)Ordered By: Ben Emmanuel on 06-01-2023 Calcium [Mass/Vol] 9.2 mg/dL 8.5-10.1 [facility] Serum or plasma creatinine m easurement (mass/volume)Ordered By: Ben Emmanuel on 06-01-2023 Creatinine [Mass/Vol] 1.17 mg/dL 0.70-1.[address] [facility] Comment on above: The validity of the calculated GFR & GFRAA in patients over 70 years has not been determined. Clinical correlation is essential. Serum or plasma ferritin cliff surement (mass/volume)Ordered By: Ben Emmanuel on 06-01-2023 Ferritin [Mass/Vol] 145 ng/mL 26-388 [facility] Serum or plasma gamma globul in measurement by electrophoresis (mass/volume)Ordered By: Ben Emmanuel on 06-01-2023 Gamma globulin Elph [Mass/Vol] 1.2 g/dL 0.4-1.8 [facility] Serum or plasma immunoelectr ophoresis interpretation (nominal result)Ordered By: Ben Emmanuel on 06-01-2023 Interpretation IEP [Interp] Comment . [facility] Comment on above: No monoclonality det ected. Serum or plasma urea nitroge n measurement (mass/volume)Ordered By: Ben Emmanuel on 06-01-2023 Urea nitrogen [Mass/Vol] 27 mg/dL 7-18 [facility] Serum perinuclear neutrophil cytoplasmic antibody titer by immunofluorescenceOrdered By: Ben Emmanuel on 06-01-2023 Neutrophil cytoplasmic Ab.perinuclear IF (S) [Titer] <1:20 titer Neg:<1:20 [facility] Comment on above: The presence of posi tive fluorescence exhibiting P-ANCA orC-ANCA patterns alone is not specific for the diagnosis ofWegener's Granulomatosis (WG) or microscopic polyangiitis.Decisions about treatment should not be based solely onANCA IFA results. The [employer] ANCA [employer] Consensusrecommends follow up testing of positive sera with both WY-3 and MPO-ANCA enzyme immunoassays. As many as 5% serumsamples are positive only by EIA. Ref. AM J Clin [id number];111:507-513. Serum tissue transglutaminas e IgA antibody assay (units/volume)Ordered By: Ben Emmaneul on 06-01-2023 tTG IgA Qn (S) 3 U/mL 0-3 [facility] Comment on above: Negative 0 - 3 Weak Positive 4 - 10 Positive >10 Tissue Transglutaminase (tTG) has been identified as the endomysial antigen. Studies have demonstr- ated that endomysial IgA antibodies have over 99% specificity for gluten sensitive enteropathy. Thin prep Papanicolaou smear with manual screeningOrdered By: Ben Emmanuel on 06-01-2023 Thin prep Papanicolaou smear with manual screening 19 U/L 15-37 [facility] Thin prep Papanicolaou smear with manual screening 7 5-15 [facility] Thin prep Papanicolaou smear with manual screening 1.0 0.7-1.7 [facility] Total protein bloodOrdered B y: Ben Emmanuel on 06-01-2023 Protein [Mass/Vol] 7.3 g/dL 6.0-8.5 [facility] Basophil percentageOrdered B y: Tony Kay on 05-21-2023 Chloride [Moles/Vol] 104 mmol/L 98-107 [facility] Glucose [Mass/Vol] 112 mg/dL 74-106 [facility] Comment on above: Fasting Glucose resu lt from 100 to 125 mg/dL suggests IMPAIRED HOMEOSTASIS per A.D.A. criteria. Potassium [Moles/Vol] 4.3 mmol/L 3.5-5.[address] [facility] Sodium [Moles/Vol] 137 mmol/L 136-145 [facility] Laboratory - Chemistry and C hemistry - challengeOrdered By: Tony Kay on 05-21-2023 CO2 [Moles/Vol] 26.0 mmol/L 21.0-32.0 [facility] Cobalamin (Vitamin B12) [Mass/Vol] 1617 pg/mL 211-911 [facility] Urea nitrogen/Creatinine [Mass ratio] 22.0 mg/mg 10-20 [facility] No Panel InformationOrdered By: Tony Kay on 05-21-2023 Vitamin B6 Level 120.1 ug/L 3.4-65.2 [facility] Comment on above: Deficiency: <3.4 Mar ginal: 3.4 - 5.1 Adequate: >5.1 Whole Blood Vitamin B1 Level 127.8 nmol/L 66.5-200.0 [facility] Comment on above: Performed at: - [address] [id number] Director: Carlos Sim MD, Phone: [phone] Estimated GFR (MDRD) Amer 79 mL/min >60 [facility] Comment on above: GFR Calc Estimated GFR (MDRD) Non-Af Amer 65 mL/min >60 [facility] Comment on above: Non- GFR Calc No Panel InformationOrdered By: Rodney Salvador on 05-21-2023 Vitamin D 25-Hydroxy 77.8 ng/mL [facility] Comment on above: Vitamin D 25(OH) Sta tus Range Deficiency <20 ng/mL (50nmol/L) Insufficiency 20 - 30 ng/mL (50 - 75 nmol/L) Sufficiency 30 - 100 ng/mL (75 - 250 nmol/L) Toxicity >100 ng/mL (>250 nmol/L) Serum or plasma calcium tracy urement (mass/volume)Ordered By: Tony Kay on 05-21-2023 Calcium [Mass/Vol] 9.2 mg/dL 8.5-10.1 [facility] Serum or plasma creatinine m easurement (mass/volume)Ordered By: Tony Kay on 05-21-2023 Creatinine [Mass/Vol] 1.18 mg/dL 0.70-1.[address] [facility] Comment on above: The validity of the calculated GFR & GFRAA in patients over 70 years has not been determined. Clinical correlation is essential. Serum or plasma ferritin cliff surement (mass/volume)Ordered By: Rodney Salvador on 05-21-2023 Ferritin [Mass/Vol] 180 ng/mL 26-388 [facility] Serum or plasma folate measu rement (mass/volume)Ordered By: Tony Kay on 05-21-2023 Folate [Mass/Vol] 16.10 ng/mL 3.1-55.4 [facility] Serum or plasma urea nitroge n measurement (mass/volume)Ordered By: Tony Kay on 05-21-2023 Urea nitrogen [Mass/Vol] 26 mg/dL 7-18 [facility] Thin prep Papanicolaou smear with manual screeningOrdered By: Tony Kay on 05-21-2023 Thin prep Papanicolaou smear with manual screening 7 5-15 [facility] Basophil percentageOrdered B y: Tony Kay on 05-10-2023 Chloride [Moles/Vol] 104 mmol/L 98-107 [facility] Glucose [Mass/Vol] 113 mg/dL 74-106 [facility] Comment on above: Fasting Glucose resu lt from 100 to 125 mg/dL suggests IMPAIRED HOMEOSTASIS per A.D.A. criteria. Potassium [Moles/Vol] 4.1 mmol/L 3.5-5.[address] [facility] Sodium [Moles/Vol] 136 mmol/L 136-145 [facility] Laboratory - Chemistry and C hemistry - challengeOrdered By: Tony Kay on 05-10-2023 CO2 [Moles/Vol] 26.0 mmol/L 21.0-32.0 [facility] Urea nitrogen/Creatinine [Mass ratio] 19.8 mg/mg 10-20 [facility] No Panel InformationOrdered By: Tony Kay on 05-10-2023 Estimated GFR (MDRD) Amer 70 mL/min >60 [facility] Comment on above: GFR Calc Estimated GFR (MDRD) Non-Af Amer 58 mL/min >60 [facility] Comment on above: Non- GFR Calc Serum or plasma calcium tracy urement (mass/volume)Ordered By: Tony Kay on 05-10-2023 Calcium [Mass/Vol] 9.2 mg/dL 8.5-10.1 [facility] Serum or plasma creatinine m easurement (mass/volume)Ordered By: Tony Kay on 05-10-2023 Creatinine [Mass/Vol] 1.31 mg/dL 0.70-1.[address] [facility] Comment on above: The validity of the calculated GFR & GFRAA in patients over 70 years has not been determined. Clinical correlation is essential. Serum or plasma urea nitroge n measurement (mass/volume)Ordered By: Tony Kay on 05-10-2023 Urea nitrogen [Mass/Vol] 26 mg/dL 7-18 [facility] Thin prep Papanicolaou smear with manual screeningOrdered By: Tony Kay on 05-10-2023 Thin prep Papanicolaou smear with manual screening 6 5-15 [facility] Basophil percentageOrdered B y: Tony Kay on 04-30-2023 Chloride [Moles/Vol] 104 mmol/L 98-107 [facility] Glucose [Mass/Vol] 107 mg/dL 74-106 [facility] Comment on above: Fasting Glucose resu lt from 100 to 125 mg/dL suggests IMPAIRED HOMEOSTASIS per A.D.A. criteria. Potassium [Moles/Vol] 3.9 mmol/L 3.5-5.[address] [facility] Sodium [Moles/Vol] 137 mmol/L 136-145 [facility] Laboratory - Chemistry and C hemistry - challengeOrdered By: Tony Kay on 04-30-2023 CO2 [Moles/Vol] 27.0 mmol/L 21.0-32.0 [facility] Magnesium [Mass/Vol] 2.7 mg/dL 1.6-2.6 [facility] Urea nitrogen/Creatinine [Mass ratio] 21.1 mg/mg 10-20 [facility] No Panel InformationOrdered By: Tony Kay on 04-30-2023 Estimated GFR (MDRD) Amer 87 mL/min >60 [facility] Comment on above: GFR Calc Estimated GFR (MDRD) Non-Af Amer 72 mL/min >60 [facility] Comment on above: Non- GFR Calc Serum or plasma calcium tracy urement (mass/volume)Ordered By: Tony Kay on 04-30-2023 Calcium [Mass/Vol] 9.1 mg/dL 8.5-10.1 [facility] Serum or plasma creatinine m easurement (mass/volume)Ordered By: Tony Kay on 04-30-2023 Creatinine [Mass/Vol] 1.09 mg/dL 0.70-1.[address] [facility] Comment on above: The validity of the calculated GFR & GFRAA in patients over 70 years has not been determined. Clinical correlation is essential. Serum or plasma urea nitroge n measurement (mass/volume)Ordered By: Tony Kay on 04-30-2023 Urea nitrogen [Mass/Vol] 23 mg/dL 7-18 [facility] Thin prep Papanicolaou smear with manual screeningOrdered By: Tony Kay on 04-30-2023 Thin prep Papanicolaou smear with manual screening 6 5-15 [facility] Basophil percentageOrdered B y: Tony Kay on 04-25-2023 Chloride [Moles/Vol] 98 mmol/L 98-107 [facility] Glucose [Mass/Vol] 118 mg/dL 74-106 [facility] Comment on above: Fasting Glucose resu lt from 100 to 125 mg/dL suggests IMPAIRED HOMEOSTASIS per A.D.A. criteria. Potassium [Moles/Vol] 3.3 mmol/L 3.5-5.[address] [facility] Sodium [Moles/Vol] 136 mmol/L 136-145 [facility] Laboratory - Chemistry and C hemistry - challengeOrdered By: Tony Kay on 04-25-2023 CO2 [Moles/Vol] 32.0 mmol/L 21.0-32.0 [facility] Magnesium [Mass/Vol] 2.6 mg/dL 1.6-2.6 [facility] Urea nitrogen/Creatinine [Mass ratio] 20.2 mg/mg 10-20 [facility] No Panel InformationOrdered By: Tony Kay on 04-25-2023 Estimated GFR (MDRD) Amer 78 mL/min >60 [facility] Comment on above: GFR Calc Estimated GFR (MDRD) Non-Af Amer 65 mL/min >60 [facility] Comment on above: Non- GFR Calc Serum or plasma calcium tracy urement (mass/volume)Ordered By: Tony Kay on 04-25-2023 Calcium [Mass/Vol] 9.4 mg/dL 8.5-10.1 [facility] Serum or plasma creatinine m easurement (mass/volume)Ordered By: Tony Kay on 04-25-2023 Creatinine [Mass/Vol] 1.19 mg/dL 0.70-1.[address] [facility] Comment on above: The validity of the calculated GFR & GFRAA in patients over 70 years has not been determined. Clinical correlation is essential. Serum or plasma urea nitroge n measurement (mass/volume)Ordered By: Tony Kay on 04-25-2023 Urea nitrogen [Mass/Vol] 24 mg/dL 7-18 [facility] Thin prep Papanicolaou smear with manual screeningOrdered By: Tony Kay on 04-25-2023 Thin prep Papanicolaou smear with manual screening 6 5-15 [facility] Basophil percentageOrdered B y: Tony Kay on 04-12-2023 Chloride [Moles/Vol] 102 mmol/L 98-107 [facility] Glucose [Mass/Vol] 109 mg/dL 74-106 [facility] Comment on above: Fasting Glucose resu lt from 100 to 125 mg/dL suggests IMPAIRED HOMEOSTASIS per A.D.A. criteria. Potassium [Moles/Vol] 3.7 mmol/L 3.5-5.[address] [facility] Sodium [Moles/Vol] 138 mmol/L 136-145 [facility] Laboratory - Chemistry and C hemistry - challengeOrdered By: Tony Kay on 04-12-2023 CO2 [Moles/Vol] 31.0 mmol/L 21.0-32.0 [facility] Urea nitrogen/Creatinine [Mass ratio] 20.8 mg/mg 10-20 [facility] No Panel InformationOrdered By: Tony Kay on 04-12-2023 Estimated GFR (MDRD) Amer 74 mL/min >60 [facility] Comment on above: GFR Calc Estimated GFR (MDRD) Non-Af Amer 61 mL/min >60 [facility] Comment on above: Non- GFR Calc Serum or plasma calcium tracy urement (mass/volume)Ordered By: Tony Kay on 04-12-2023 Calcium [Mass/Vol] 9.5 mg/dL 8.5-10.1 [facility] Serum or plasma creatinine m easurement (mass/volume)Ordered By: Tony Kay on 04-12-2023 Creatinine [Mass/Vol] 1.25 mg/dL 0.70-1.[address] [facility] Comment on above: The validity of the calculated GFR & GFRAA in patients over 70 years has not been determined. Clinical correlation is essential. Serum or plasma urea nitroge n measurement (mass/volume)Ordered By: Tony Kay on 04-12-2023 Urea nitrogen [Mass/Vol] 26 mg/dL 7-18 [facility] Thin prep Papanicolaou smear with manual screeningOrdered By: Tony Kay on 04-12-2023 Thin prep Papanicolaou smear with manual screening 5 5-15 [facility] Basophil percentageOrdered B y: Tony Kay on 04-06-2023 Chloride [Moles/Vol] 109 mmol/L 98-107 [facility] Glucose [Mass/Vol] 107 mg/dL 74-106 [facility] Comment on above: Fasting Glucose resu lt from 100 to 125 mg/dL suggests IMPAIRED HOMEOSTASIS per A.D.A. criteria. Potassium [Moles/Vol] 4.6 mmol/L 3.5-5.[address] [facility] Sodium [Moles/Vol] 139 mmol/L 136-145 [facility] Laboratory - Chemistry and C hemistry - challengeOrdered By: Tony Kay on 04-06-2023 CO2 [Moles/Vol] 27.0 mmol/L 21.0-32.0 [facility] Urea nitrogen/Creatinine [Mass ratio] 22.0 mg/mg 10-20 [facility] No Panel InformationOrdered By: Tony Kay on 04-06-2023 Estimated GFR (MDRD) Amer 75 mL/min >60 [facility] Comment on above: GFR Calc Estimated GFR (MDRD) Non-Af Amer 62 mL/min >60 [facility] Comment on above: Non- GFR Calc Serum or plasma C reactive p rotein measurement (mass/volume)Ordered By: Tony Kay on 04-06-2023 CRP [Mass/Vol] 10.30 mg/L 0.0-3.0 [facility] Comment on above: C-Reactive Protein ( CRP) provides useful information for thediagnosis, therapy and monitoring of inflammatory processesand associated diseases. For the evaluation of Relative Riskfor Cardiovascular Disease, a High Sensitivity CRP (HSCRP)should be ordered. Serum or plasma calcium tracy urement (mass/volume)Ordered By: Tony Kay on 04-06-2023 Calcium [Mass/Vol] 9.8 mg/dL 8.5-10.1 [facility] Serum or plasma creatinine m easurement (mass/volume)Ordered By: Tony Kay on 04-06-2023 Creatinine [Mass/Vol] 1.23 mg/dL 0.70-1.[address] [facility] Comment on above: The validity of the calculated GFR & GFRAA in patients over 70 years has not been determined. Clinical correlation is essential. Serum or plasma urea nitroge n measurement (mass/volume)Ordered By: Tony Kay on 04-06-2023 Urea nitrogen [Mass/Vol] 27 mg/dL 7-18 [facility] Thin prep Papanicolaou smear with manual screeningOrdered By: Tony Kay on 04-06-2023 Thin prep Papanicolaou smear with manual screening 3 5-15 [facility] Basophil percentageOrdered B y: Tony Kay on 03-30-2023 Chloride [Moles/Vol] 103 mmol/L 98-107 [facility] Glucose [Mass/Vol] 143 mg/dL 74-106 [facility] Comment on above: Fasting Glucose resu lt greater than or equal to 126 mg/dL suggests DIABETES MELLITUS per A.D.A. criteria. Potassium [Moles/Vol] 3.6 mmol/L 3.5-5.[address] [facility] Comment on above: Slight Hemolysis, Re sult may be falsely increased. Sodium [Moles/Vol] 138 mmol/L 136-145 [facility] Laboratory - Chemistry and C hemistry - challengeOrdered By: Tony Kay on 03-30-2023 CO2 [Moles/Vol] 26.0 mmol/L 21.0-32.0 [facility] Urea nitrogen/Creatinine [Mass ratio] 22.1 mg/mg 10-20 [facility] No Panel InformationOrdered By: Tony Kay on 03-30-2023 Estimated GFR (MDRD) Amer 67 mL/min >60 [facility] Comment on above: GFR Calc Estimated GFR (MDRD) Non-Af Amer 56 mL/min >60 [facility] Comment on above: Non- GFR Calc Serum or plasma calcium tracy urement (mass/volume)Ordered By: Tony Kay on 03-30-2023 Calcium [Mass/Vol] 9.2 mg/dL 8.5-10.1 [facility] Serum or plasma creatinine m easurement (mass/volume)Ordered By: Tony Kay on 03-30-2023 Creatinine [Mass/Vol] 1.36 mg/dL 0.70-1.[address] [facility] Comment on above: The validity of the calculated GFR & GFRAA in patients over 70 years has not been determined. Clinical correlation is essential. Serum or plasma urea nitroge n measurement (mass/volume)Ordered By: Tony Kay on 03-30-2023 Urea nitrogen [Mass/Vol] 30 mg/dL 7-18 [facility] Thin prep Papanicolaou smear with manual screeningOrdered By: Tony Kay on 03-30-2023 Thin prep Papanicolaou smear with manual screening 9 5-15 [facility] Basophil percentageOrdered B y: Dr. Kay on 03-23-2023 Chloride [Moles/Vol] 101 mmol/L 98-107 [facility] Glucose [Mass/Vol] 109 mg/dL 74-106 [facility] Comment on above: Fasting Glucose resu lt from 100 to 125 mg/dL suggests IMPAIRED HOMEOSTASIS per A.D.A. criteria. Potassium [Moles/Vol] 3.6 mmol/L 3.5-5.[address] [facility] Sodium [Moles/Vol] 139 mmol/L 136-145 [facility] Laboratory - Chemistry and C hemistry - challengeOrdered By: Dr. Kay on 03-23-2023 CO2 [Moles/Vol] 27.0 mmol/L 21.0-32.0 [facility] Urea nitrogen/Creatinine [Mass ratio] 23.5 mg/mg 10-20 [facility] No Panel InformationOrdered By: Dr. Kay on 03-23-2023 Estimated GFR (MDRD) Amer 78 mL/min >60 [facility] Comment on above: GFR Calc Estimated GFR (MDRD) Non-Af Amer 65 mL/min >60 [facility] Comment on above: Non- GFR Calc Serum or plasma calcium tracy urement (mass/volume)Ordered By: Dr. Kay on 03-23-2023 Calcium [Mass/Vol] 9.3 mg/dL 8.5-10.1 [facility] Serum or plasma creatinine m easurement (mass/volume)Ordered By: Dr. Kay on 03-23-2023 Creatinine [Mass/Vol] 1.19 mg/dL 0.70-1.[address] [facility] Comment on above: The validity of the calculated GFR & GFRAA in patients over 70 years has not been determined. Clinical correlation is essential. Serum or plasma urea nitroge n measurement (mass/volume)Ordered By: Dr. Kay on 03-23-2023 Urea nitrogen [Mass/Vol] 28 mg/dL 7-18 [facility] Thin prep Papanicolaou smear with manual screeningOrdered By: Dr. Kay on 03-23-2023 Thin prep Papanicolaou smear with manual screening 11 5-15 [facility] Basophil percentageOrdered B y: Dr. Kay on 03-12-2023 Chloride [Moles/Vol] 99 mmol/L 98-107 [facility] Glucose [Mass/Vol] 126 mg/dL 74-106 [facility] Comment on above: Fasting Glucose resu lt greater than or equal to 126 mg/dL suggests DIABETES MELLITUS per A.D.A. criteria. Potassium [Moles/Vol] 3.0 mmol/L 3.5-5.[address] [facility] Sodium [Moles/Vol] 134 mmol/L 136-145 [facility] Laboratory - Chemistry and C hemistry - challengeOrdered By: Dr. Kay on 03-12-2023 CO2 [Moles/Vol] 34.0 mmol/L 21.0-32.0 [facility] Urea nitrogen/Creatinine [Mass ratio] 21.9 mg/mg 10-20 [facility] No Panel InformationOrdered By: Dr. Kay on 03-12-2023 Estimated GFR (MDRD) Amer 72 mL/min >60 [facility] Comment on above: GFR Calc Estimated GFR (MDRD) Non-Af Amer 60 mL/min >60 [facility] Comment on above: Non- GFR Calc Serum or plasma calcium tracy urement (mass/volume)Ordered By: Dr. Kay on 03-12-2023 Calcium [Mass/Vol] 9.5 mg/dL 8.5-10.1 [facility] Serum or plasma creatinine m easurement (mass/volume)Ordered By: Dr. Kay on 03-12-2023 Creatinine [Mass/Vol] 1.28 mg/dL 0.70-1.[address] [facility] Comment on above: The validity of the calculated GFR & GFRAA in patients over 70 years has not been determined. Clinical correlation is essential. Serum or plasma urea nitroge n measurement (mass/volume)Ordered By: Dr. Kay on 03-12-2023 Urea nitrogen [Mass/Vol] 28 mg/dL 7-18 [facility] Thin prep Papanicolaou smear with manual screeningOrdered By: Dr. Kay on 03-12-2023 Thin prep Papanicolaou smear with manual screening 1 5-15 [facility] Basophil percentageOrdered B y: Dr. Kay on 03-06-2023 Chloride [Moles/Vol] 94 mmol/L 98-107 [facility] Glucose [Mass/Vol] 147 mg/dL 74-106 [facility] Comment on above: Fasting Glucose resu lt greater than or equal to 126 mg/dL suggests DIABETES MELLITUS per A.D.A. criteria. Potassium [Moles/Vol] 2.9 mmol/L 3.5-5.[address] [facility] Comment on above: Slight Hemolysis, Re sult may be falsely increased. Sodium [Moles/Vol] 136 mmol/L 136-145 [facility] Laboratory - Chemistry and C hemistry - challengeOrdered By: Dr. Kay on 03-06-2023 CO2 [Moles/Vol] 33.0 mmol/L 21.0-32.0 [facility] Urea nitrogen/Creatinine [Mass ratio] 21.6 mg/mg 10-20 [facility] No Panel InformationOrdered By: Dr. Kay on 03-06-2023 Estimated GFR (MDRD) Amer 59 mL/min >60 [facility] Comment on above: GFR Calc Estimated GFR (MDRD) Non-Af Amer 49 mL/min >60 [facility] Comment on above: Non- GFR Calc Serum or plasma calcium tracy urement (mass/volume)Ordered By: Dr. Kay on 03-06-2023 Calcium [Mass/Vol] 10.0 mg/dL 8.5-10.1 [facility] Serum or plasma creatinine m easurement (mass/volume)Ordered By: Dr. Kay on 03-06-2023 Creatinine [Mass/Vol] 1.53 mg/dL 0.70-1.[address] [facility] Comment on above: The validity of the calculated GFR & GFRAA in patients over 70 years has not been determined. Clinical correlation is essential. Serum or plasma urea nitroge n measurement (mass/volume)Ordered By: Dr. Kay on 03-06-2023 Urea nitrogen [Mass/Vol] 33 mg/dL 7-18 [facility] Thin prep Papanicolaou smear with manual screeningOrdered By: Dr. Kay on 03-06-2023 Thin prep Papanicolaou smear with manual screening 9 5-15 [facility] Basophil percentageOrdered B y: Dr. Kay on 02-23-2023 Bilirubin [Mass/Vol] 0.40 mg/dL 0.20-1.00 [facility] Comment on above: For patients on eltr ombopag therapy, use of Dimension [place] TBIL is not recommended. Chloride [Moles/Vol] 98 mmol/L 98-107 [facility] Glucose [Mass/Vol] 129 mg/dL 74-106 [facility] Comment on above: Fasting Glucose resu lt greater than or equal to 126 mg/dL suggests DIABETES MELLITUS per A.D.A. criteria. Potassium [Moles/Vol] 2.9 mmol/L 3.5-5.[address] [facility] Protein [Mass/Vol] 8.2 g/dL 6.4-8.2 [facility] Sodium [Moles/Vol] 138 mmol/L 136-145 [facility] Laboratory - Chemistry and C hemistry - challengeOrdered By: Dr. Kay on 02-23-2023 ALP [Catalytic activity/Vol] 81 U/L 45-117 [facility] ALT [Catalytic activity/Vol] 45 U/L 16-61 [facility] CO2 [Moles/Vol] 34.0 mmol/L 21.0-32.0 [facility] Globulin (S) [Mass/Vol] 4.8 g/dL 2.2-4.[address] [facility] Magnesium [Mass/Vol] 2.2 mg/dL 1.6-2.6 [facility] Urea nitrogen/Creatinine [Mass ratio] 23.0 mg/mg 10-20 [facility] No Panel InformationOrdered By: Dr. Kay on 02-23-2023 Estimated GFR (MDRD) Amer 73 mL/min >60 [facility] Comment on above: GFR Calc Estimated GFR (MDRD) Non-Af Amer 61 mL/min >60 [facility] Comment on above: Non- GFR Calc Serum or plasma albumin tracy urement (mass/volume)Ordered By: Dr. Kay on 02-23-2023 Albumin [Mass/Vol] 3.4 g/dL 3.2-5.0 [facility] Serum or plasma albumin/glob ulin mass ratioOrdered By: Dr. Kay on 02-23-2023 Albumin/Globulin [Mass ratio] 0.7 {ratio} 0.9-2.4 [facility] Serum or plasma calcium tracy urement (mass/volume)Ordered By: Dr. Kay on 02-23-2023 Calcium [Mass/Vol] 9.7 mg/dL 8.5-10.1 [facility] Serum or plasma creatinine m easurement (mass/volume)Ordered By: Dr. Kay on 02-23-2023 Creatinine [Mass/Vol] 1.26 mg/dL 0.70-1.[address] [facility] Comment on above: The validity of the calculated GFR & GFRAA in patients over 70 years has not been determined. Clinical correlation is essential. Serum or plasma urea nitroge n measurement (mass/volume)Ordered By: Dr. Kay on 02-23-2023 Urea nitrogen [Mass/Vol] 29 mg/dL 7-18 [facility] Thin prep Papanicolaou smear with manual screeningOrdered By: Dr. Kay on 02-23-2023 Thin prep Papanicolaou smear with manual screening 28 U/L 15-37 [facility] Thin prep Papanicolaou smear with manual screening 6 5-15 [facility] Thin prep Papanicolaou smear with manual screening 298 mOsm/KG 280-301 [facility] Basophil percentageOrdered B y: Dr. Kay on 02-07-2023 Bilirubin [Mass/Vol] 0.40 mg/dL 0.20-1.00 [facility] Comment on above: For patients on eltr ombopag therapy, use of Dimension [place] TBIL is not recommended. Chloride [Moles/Vol] 108 mmol/L 98-107 [facility] Glucose [Mass/Vol] 101 mg/dL 74-106 [facility] Comment on above: Fasting Glucose resu lt from 100 to 125 mg/dL suggests IMPAIRED HOMEOSTASIS per A.D.A. criteria. Potassium [Moles/Vol] 3.9 mmol/L 3.5-5.[address] [facility] Protein [Mass/Vol] 7.7 g/dL 6.4-8.2 [facility] Sodium [Moles/Vol] 141 mmol/L 136-145 [facility] Laboratory - Chemistry and C hemistry - challengeOrdered By: Dr. Kay on 02-07-2023 ALP [Catalytic activity/Vol] 81 U/L 45-117 [facility] ALT [Catalytic activity/Vol] 43 U/L 16-61 [facility] CO2 [Moles/Vol] 27.0 mmol/L 21.0-32.0 [facility] Globulin (S) [Mass/Vol] 4.5 g/dL 2.2-4.[address] [facility] Magnesium [Mass/Vol] 2.4 mg/dL 1.6-2.6 [facility] Urea nitrogen/Creatinine [Mass ratio] 19.8 mg/mg 10-20 [facility] No Panel InformationOrdered By: Dr. Kay on 02-07-2023 Estimated GFR (MDRD) Amer 81 mL/min >60 [facility] Comment on above: GFR Calc Estimated GFR (MDRD) Non-Af Amer 67 mL/min >60 [facility] Comment on above: Non- GFR Calc Serum or plasma C reactive p rotein measurement (mass/volume)Ordered By: Dr. Kay on 02-07-2023 CRP [Mass/Vol] 9.13 mg/L 0.0-3.0 [facility] Comment on above: C-Reactive Protein ( CRP) provides useful information for thediagnosis, therapy and monitoring of inflammatory processesand associated diseases. For the evaluation of Relative Riskfor Cardiovascular Disease, a High Sensitivity CRP (HSCRP)should be ordered. Serum or plasma albumin tracy urement (mass/volume)Ordered By: Dr. Kay on 02-07-2023 Albumin [Mass/Vol] 3.2 g/dL 3.2-5.0 [facility] Serum or plasma albumin/glob ulin mass ratioOrdered By: Dr. Kay on 02-07-2023 Albumin/Globulin [Mass ratio] 0.7 {ratio} 0.9-2.4 [facility] Serum or plasma calcium tracy urement (mass/volume)Ordered By: Dr. Kay on 02-07-2023 Calcium [Mass/Vol] 9.2 mg/dL 8.5-10.1 [facility] Serum or plasma creatinine m easurement (mass/volume)Ordered By: Dr. Kay on 02-07-2023 Creatinine [Mass/Vol] 1.16 mg/dL 0.70-1.[address] [facility] Comment on above: The validity of the calculated GFR & GFRAA in patients over 70 years has not been determined. Clinical correlation is essential. Serum or plasma urea nitroge n measurement (mass/volume)Ordered By: Dr. Kay on 02-07-2023 Urea nitrogen [Mass/Vol] 23 mg/dL 7-18 [facility] Thin prep Papanicolaou smear with manual screeningOrdered By: Dr. Kay on 02-07-2023 Thin prep Papanicolaou smear with manual screening 22 U/L 15-37 [facility] Thin prep Papanicolaou smear with manual screening 6 5-15 [facility] Office Visiton 05-24-2017 Documentation of current medications (procedure) Done Invalid Interpretation Code [facility] [employer] Work Phone: Fall risk assessment No [facility] [employer] Work Phone: Protein mass conc Done [facility] [employer] Work Phone: Tobacco smoking status NHIS Never [facility] [employer] Work Phone: Tobacco smoking status NHIS Never smoker [facility] [employer] Work Phone: Tobacco use [facility] Never smoker Invalid Interpretation Code [facility] [employer] Work Phone: Office Visiton 11-08-2011 Colonoscopy (procedure) Colonoscopy (procedure) Invalid Interpretation Code [facility] [employer] Work Phone: Protein mass conc Colonoscopy (procedure) [facility] [employer] Work Phone: No Panel Information [facility] Vital Signs Date Time Vital Sign Value Performing Clinician Facility 02-17-2025 15:58-0400 Body mass index (BMI) [Ratio] 40.67 kg/m2 Milton Villanueva MD Work Phone: [facility] 02-17-2025 15:58-0400 Body weight 114.31 kg Milton Villanueva MD Work Phone: [facility] 02-17-2025 15:58-0400 Diastolic blood pressure 70 mm[Hg] Milton Villanueva MD Work Phone: [facility] 02-17-2025 15:58-0400 Heart rate 77 /min Milton Villanueva MD Work Phone: [facility] 02-17-2025 15:58-0400 SaO2% (BldA) [Mass fraction] 98 % Milton Villanueva MD Work Phone: [facility] 02-17-2025 15:58-0400 Systolic blood pressure 122 mm[Hg] Milton Villanueva MD Work Phone: [facility] 01-06-2025 10:57-0400 Diastolic blood pressure 83 mm[Hg] Drew Drea DO Work Phone: [facility] 01-06-2025 10:57-0400 Heart rate 79 /min Drew Drea DO Work Phone: [facility] 01-06-2025 10:57-0400 Systolic blood pressure 153 mm[Hg] Drew Drea DO Work Phone: [facility] 11-28-2024 13:40-0500 Body mass index (BMI) [Ratio] 40.93 kg/m2 Milton Villanueva MD Work Phone: [facility] 11-28-2024 13:40-0500 Body weight 115.03 kg Milton Villanueva MD Work Phone: [facility] 11-28-2024 13:40-0500 Diastolic blood pressure 81 mm[Hg] Milton Villanueva MD Work Phone: [facility] 11-28-2024 13:40-0500 Heart rate 78 /min Milton Villanueva MD Work Phone: [facility] 11-28-2024 13:40-0500 SaO2% (BldA) [Mass fraction] 97 % Milton Villanueva MD Work Phone: [facility] 11-28-2024 13:40-0500 Systolic blood pressure 138 mm[Hg] Milton Villanueva MD Work Phone: [facility] 08-28-2023 14:14-0500 Body height 167.[address] Tony Kay Work Phone: [facility] 08-28-2023 14:14-0500 Body mass index (BMI) [Ratio] 40 kg/m2 Dr. Tony Kay Work Phone: [facility] 08-28-2023 14:14-0500 Body temperature 97.2 [degF] Dr. Tony Kay Work Phone: [facility] 08-28-2023 14:14-0500 Body weight 112.[address] Tony Kay Work Phone: [facility] 08-28-2023 14:14-0500 Diastolic blood pressure 75 mm[Hg] Dr. Tony Kay Work Phone: [facility] 08-28-2023 14:14-0500 Heart rate 62 /min Dr. Tony Kay Work Phone: [facility] 08-28-2023 14:14-0500 Respiratory rate 16 /min Dr. Tony Kay Work Phone: [facility] 08-28-2023 14:14-0500 SaO2% (BldA) [Mass fraction] 97 % Dr. Tony Kay Work Phone: [facility] 08-28-2023 14:14-0500 Systolic blood pressure 132 mm[Hg] Dr. Tony Kay Work Phone: [facility] 07-31-2023 13:20-0400 Body height 167.[address] Tony Kay Work Phone: [facility] 07-31-2023 13:20-0400 Body mass index (BMI) [Ratio] 39.5 kg/m2 Dr. Tony Kay Work Phone: [facility] 07-31-2023 13:20-0400 Body temperature 97.8 [degF] Dr. Tony Kay Work Phone: [facility] 07-31-2023 13:20-0400 Body weight 111.[address] Tony Kay Work Phone: 5(034)[phone] [place] [address] 07-31-2023 13:20-0400 Diastolic blood pressure 86 mm[Hg] Dr. Tony Kay Work Phone: 7(431)[phone] [address] 07-31-2023 13:20-0400 Heart rate 67 /min Dr. Tony Kay Work Phone: 6(937)[phone] [address] 07-31-2023 13:20-0400 Respiratory rate 16 /min Dr. Tony Kay Work Phone: 2(513)[phone] [place] [address] 07-31-2023 13:20-0400 SaO2% (BldA) [Mass fraction] 92 % Dr. Tony Kay Work Phone: 9(088)[phone] [address] 07-31-2023 13:20-0400 Systolic blood pressure 137 mm[Hg] Dr. Tony Kay Work Phone: 4(759)[phone] [address] 07-20-2023 14:41-0400 Diastolic blood pressure 79 mm[Hg] Dr. Tony Kay Work Phone: 6(543)[phone] [place] [address] 07-20-2023 14:41-0400 Systolic blood pressure 124 mm[Hg] Dr. Tony Kay Work Phone: 1(507)[phone] [address] 07-20-2023 13:09-0400 Body mass index (BMI) [Ratio] 39.2 kg/m2 Dr. Tony Kay Work Phone: [facility] 07-20-2023 13:09-0400 Body temperature 97 [degF] Dr. Tony Kay Work Phone: [facility] 07-20-2023 13:09-0400 Body weight 110.[address] Tony Kay Work Phone: [facility] 07-20-2023 13:09-0400 Heart rate 82 /min Dr. Tony Kay Work Phone: [facility] 07-20-2023 13:09-0400 Respiratory rate 17 /min Dr. Tony Kay Work Phone: [facility] 07-20-2023 13:09-0400 SaO2% (BldA) [Mass fraction] 95 % Dr. Tony Kay Work Phone: [facility] 05-30-2023 16:03-0400 Body height 167.[address] Tony Kay Work Phone: [facility] 05-30-2023 16:03-0400 Body mass index (BMI) [Ratio] 39.7 kg/m2 Dr. Tony Kay Work Phone: [facility] 05-30-2023 16:03-0400 Body temperature 98.1 [degF] Dr. Tony Kay Work Phone: [facility] 05-30-2023 16:03-0400 Body weight 111.[address] Tony Kay Work Phone: [facility] 05-30-2023 16:03-0400 Diastolic blood pressure 75 mm[Hg] Dr. Tony Kay Work Phone: [facility] 05-30-2023 16:03-0400 Heart rate 66 /min Dr. Tony Kay Work Phone: [facility] 05-30-2023 16:03-0400 Respiratory rate 16 /min Dr. Tony Kay Work Phone: [facility] 05-30-2023 16:03-0400 SaO2% (BldA) [Mass fraction] 97 % Dr. Tony Kay Work Phone: [facility] 05-30-2023 16:03-0400 Systolic blood pressure 121 mm[Hg] Dr. Tony Kay Work Phone: [facility] 05-29-2023 13:28-0400 Body mass index (BMI) [Ratio] 42.9 kg/m2 Dr. Tony Kay Work Phone: [facility] 05-29-2023 13:28-0400 Body temperature 97.5 [degF] Dr. Tony Kay Work Phone: [facility] 05-29-2023 13:28-0400 Body weight 111.[address] Tony Kay Work Phone: [facility] 05-29-2023 13:28-0400 Diastolic blood pressure 76 mm[Hg] Dr. Tony Kay Work Phone: [facility] 05-29-2023 13:28-0400 Heart rate 65 /min Dr. Tony Kay Work Phone: [facility] 05-29-2023 13:28-0400 Respiratory rate 16 /min Dr. Tony Kay Work Phone: [facility] 05-29-2023 13:28-0400 SaO2% (BldA) [Mass fraction] 93 % Dr. Tony Kay Work Phone: [facility] 05-29-2023 13:28-0400 Systolic blood pressure 116 mm[Hg] Dr. Tony Kay Work Phone: [facility] 05-24-2017 08:09-0400 BMI (Body Mass Index) 36.38 kg/m2 Maura Linn [facility] Work Phone: 05-24-2017 08:09-0400 Body Temperature 97.6 [degF] Maura Linn [facility] Work Phone: 05-24-2017 08:09-0400 Body Temperature 97.59 [degF] Maura Linn [facility] Work Phone: 05-24-2017 08:09-0400 BP Diastolic 84 mm[Hg] Maura Linn [facility] Work Phone: 05-24-2017 08:09-0400 BP Systolic 136 mm[Hg] [facility] Work Phone: 05-24-2017 08:09-0400 Height 167.64 cm [facility] Work Phone: 05-24-2017 08:09-0400 Pulse (Heart Rate) 64 /min [facility] Work Phone: 05-24-2017 08:09-0400 Respiratory Rate 18 /min [facility] Work Phone: 05-24-2017 08:09-0400 Weight 102.24 kg [facility] Work Phone: Encounters Encounter Date Encounter Type Care Provider Facility Start: 06-04-2025 ambulatory Tony Kay Facility:[facility] Start: 06-01-2025 End: 06-01-2025 Patient encounter procedure Kim Rose OD Work Phone: Ophthalmology Comment on above: Dry eye syndrome of both eyes (Primary Dx); Blurred vision, bilateral; Monocular exotropia with other noncomitancies, left eye; Hypertropia of left eye Start: 06-01-2025 End: 06-01-2025 ambulatory KIM ROSE Facility:[facility] Start: 05-26-2025 ambulatory Tony Kay Facility:[facility] Start: 05-25-2025 ambulatory Tony Kay Facility:[facility] Start: 05-02-2025 End: 05-07-[address] Tony Kay MD Work Phone: -Laboratory Start: 05-02-2025 End: 05-07-[address] Tony Kay MD -Laboratory Work Phone: Start: 04-20-2025 Non-patient / Non-visit Dr. Cristóbal LOPEZ -[facility] Work Phone: Start: 04-20-[address] Tony Alaniz D -Cat Scan [facility] Work Phone: Start: 04-20-2025 ambulatory Tony Kay Facility:[facility] Start: 04-06-2025 End: 04-06-[address] Tony Kay MD Work Phone: -Laboratory Start: 04-06-2025 End: 04-06-[address] Tony Kay MD -Laboratory Work Phone: Start: 03-31-2025 End: 03-31-[address] Tony Kay MD Work Phone: -Laboratory [facility] Start: 03-31-2025 End: 03-31-[address] Tony Kay MD -Radiology [place] Work Phone: Start: 03-31-2025 End: 03-31-2025 ambulatory Tony Kay Facility:[facility] Start: 03-30-[address] Tony Kay MD -Laboratory Work Phone: Start: 03-25-2025 End: 05-25-2025 Follow-up encounter Milton Villanueva MD Work Phone: Endocrinology Start: 03-13-[address] Tony Kay MD -Laboratory Work Phone: Start: 03-10-2025 End: 03-10-[address] Tony Kay MD Work Phone: [facility] Work Phone: Start: 03-10-2025 End: 03-10-[address] Tony Kay MD -Laboratory [facility] Start: 03-10-2025 End: 03-10-2025 ambulatory Tony Kay Facility:[facility] Start: 03-06-2025 End: 03-06-2025 ambulatory MILTON VILLANUEVA Facility:[facility] Start: 02-26-2025 End: 02-26-[address] Tony Kay MD Work Phone: [facility] Work Phone: Start: 02-26-2025 End: 02-26-[address] Tony Kay MD -Laboratory Work Phone: Start: 02-26-2025 End: 02-26-2025 ambulatory Tony aKy Facility:[facility] Start: 02-23-2025 End: 02-23-[address] Tony Kay MD Work Phone: [facility] Work Phone: Start: 02-23-2025 End: 02-23-[address] Tony Kay MD -Laboratory [facility] Start: 02-23-2025 End: 02-23-2025 ambulatory Tonykaitlynn Kay Facility:[facility] Start: 02-17-2025 End: 02-17-2025 Patient encounter procedure Milton Villanueva MD Work Phone: Endocrinology Comment on above: Hypertension, unspec ified type (Primary Dx) Start: 02-17-2025 End: 02-17-2025 ambulatory MILTON VILLANUEVA Facility:[facility] Start: 02-12-2025 End: 02-12-[address] Tony Kay MD Work Phone: [facility] Work Phone: Start: 02-12-2025 End: 02-12-[address] Tony Kay MD -Laboratory, [facility] Start: 02-12-2025 End: 02-12-2025 ambulatory Tony Kay Facility:[facility] Start: 02-09-2025 End: 04-11-2025 Follow-up encounter Anna Last RN Endocrinology Start: 02-07-2025 End: 02-07-[address] Tony Kay MD -Laboratory Work Phone: Start: 02-07-[address] Tony Kay MD -Laboratory Work Phone: Start: 02-07-2025 End: 02-07-[address] Tony Kay MD Work Phone: [facility] Work Phone: Start: 02-04-2025 End: 02-04-[address] Tony Kay MD -Cat Scan, [facility] Work Phone: Start: 02-04-2025 End: 02-04-2025 ambulatory Tony Kay Facility:[facility] Start: 01-10-2025 End: 01-10-[address] Tony Kay MD Work Phone: [facility] Work Phone: Start: 01-10-2025 End: 01-10-[address] Tony Kay MD -Ultrasound, [facility] Work Phone: Start: 01-10-2025 End: 01-10-2025 ambulatory Tony Kay Facility:[facility] Start: 01-06-2025 End: 01-06-2025 ambulatory DREW RHODES Facility:[facility] Start: 01-06-2025 End: 01-06-2025 Office outpatient new 60 minutes Drew Rhodes DO Work Phone: Kidney Medicine [facility] Comment on above: Elevated serum creat inine (Primary Dx) Start: 01-03-2025 End: 01-03-[address] Tony Kay MD -Laboratory Work Phone: Start: 01-03-2025 End: 01-03-[address] Tony Kay MD Work Phone: [facility] Work Phone: Start: 01-02-2025 End: 01-02-2025 [facility] Start: 12-04-2024 End: 12-04-[address] Tony Kay MD Work Phone: [facility] Work Phone: Start: 12-04-2024 End: 12-04-[address] Tony Kay MD -Laboratory, [facility] Start: 12-04-2024 End: 12-04-2024 ambulatory Tony Kay Facility:[facility] Start: 12-01-2024 End: 12-01-[address] Tony Kay MD Work Phone: [facility] Work Phone: Start: 12-01-2024 End: 12-01-[address] Tony Kay MD -Laboratory, [facility] Start: 12-01-2024 End: 12-01-2024 ambulatory Tony Kay Facility:[facility] Start: 11-28-2024 End: 11-28-2024 ambulatory MILTON VILLANUEVA Facility:[facility] Start: 11-28-2024 End: 11-28-2024 Patient encounter procedure [...] Start: 10-30-2024 End: 10-30-2024 ambulatory KIM ROSE Facility:[facility] Start: 10-30-2024 End: 10-30-2024 Patient encounter procedure Kim Rose OD Work Phone: Ophthalmology Comment on above: Blurred vision, bila teral (Primary Dx); Monocular exotropia with other noncomitancies, left eye; Hypertropia of left eye; Dry eye syndrome of both eyes Start: 10-16-2024 End: 10-16-[address] Tony Kay MD -Laboratory, [facility] Start: 10-16-2024 End: 10-16-2024 ambulatory Tony Kay Facility:[facility] Start: 08-20-2024 End: 08-20-[address] Tony Kay MD -Laboratory, [facility] Start: 08-20-2024 End: 08-20-2024 ambulatory Tony Kay Facility:[facility] Start: 08-07-2024 End: 08-07-2024 ambulatory Tony Kay Facility:[facility] Start: 08-06-2024 End: 08-06-2024 ambulatory Tony Kay Facility:[facility] Start: 07-02-2024 End: 07-02-2024 ambulatory Ben Friend Facility:[facility] Start: 06-16-2024 ambulatory Ben Friend Facility :[facility] Start: 06-16-2024 End: 06-16-2024 ambulatory Ben Friend Facility:[facility] Start: 06-12-2024 End: 06-12-2024 ambulatory Tony Kay Facility:[facility] Start: 01-22-2024 End: 01-22-[address] Tony Kay Work Phone: [facility] Work Phone: Start: 01-22-2024 End: 01-22-[address] Tony Kay Work Phone: [facility] Start: 12-28-2023 End: 12-28-[address] Tony Kay Work Phone: [facility] Work Phone: Start: 12-28-2023 End: 12-28-[address] Tony Kay Work Phone: [facility] Start: 12-14-2023 End: 12-14-[address] Tony Kay Work Phone: [facility] Work Phone: Start: 12-14-2023 End: 12-14-[address] Tony Kay Work Phone: [facility] Start: 11-27-2023 End: 11-27-[address] Tony Kay Work Phone: [facility] Work Phone: Start: 11-27-2023 End: 11-27-[address] Tony Kay Work Phone: [facility] Start: 11-26-2023 End: 11-26-[address] Tony Kay Work Phone: [facility] Work Phone: Start: 11-07-2023 End: 11-07-[address] Tony Kay Work Phone: [facility] Work Phone: Start: 11-07-2023 End: 11-07-[address] Tony aKy Work Phone: [facility] Work Phone: Start: 09-24-2023 End: 10-07-[address] Tony Kay Work Phone: [facility] Work Phone: Start: 09-13-2023 End: 09-13-[address] Tony Kay Work Phone: [facility] Work Phone: Start: 09-13-2023 End: 09-13-[address] Tony Kay Work Phone: [facility] Work Phone: Start: 08-28-2023 End: 08-28-[address] Tony Kay Work Phone: [facility] Work Phone: Start: 08-14-2023 End: 08-14-[address] Tony Kay Work Phone: [facility] Work Phone: Start: 08-14-2023 End: 08-14-[address] Tony Kay Work Phone: [facility] Start: 07-31-2023 End: 07-31-[address] Tony Kay Work Phone: [facility] Work Phone: Start: 07-20-2023 Non-patient / Non-visit Dr. Diego Kay Work Phone: [facility] Start: 07-20-2023 End: 07-20-2023 Admission to same day surgery center Dr. Tony Kay Work Phone: [facility] Start: 06-27-2023 End: 06-27-[address] Tony Kay Work Phone: [facility] Work Phone: Start: 06-27-2023 End: 06-27-[address] Tony Kay Work Phone: [facility] Work Phone: Start: 06-15-2023 End: 06-15-[address] Tony Kay Work Phone: [facility] Work Phone: Start: 06-15-2023 End: 06-15-[address] Tony Kay Work Phone: [facility] Start: 06-01-2023 End: 06-01-[address] Tony Kay Work Phone: [facility] Work Phone: Start: 05-30-2023 End: 05-30-[address] Tony Kay Work Phone: [facility] Work Phone: Start: 05-29-2023 End: 05-29-[address] Tony Kay Work Phone: [facility] Work Phone: Start: 05-21-2023 End: 05-21-[address] Tony Kay Work Phone: [facility] Work Phone: Start: 05-21-2023 End: 05-21-[address] Tony Kay Work Phone: [facility] Start: 05-10-2023 End: 05-10-[address] Tony Kay Work Phone: [facility] Work Phone: Start: 05-10-2023 End: 05-10-[address] Tony Kay Work Phone: [facility] Start: 04-30-2023 End: 04-30-[address] Tony Kay Work Phone: [facility] Start: 04-25-2023 End: 04-25-[address] Tony Kay Work Phone: [facility] Start: 04-12-2023 End: 04-12-[address] Tony Kay Work Phone: [facility] Work Phone: Start: 04-12-2023 End: 04-12-[address] Tony Kay Work Phone: [facility] Start: 04-06-2023 End: 04-06-[address] Tony Kay Work Phone: [facility] Start: 03-30-2023 End: 03-30-[address] Tony Kay Work Phone: [facility] Start: 03-23-2023 End: 03-23-[address] Tony Kay Work Phone: [facility] Work Phone: Start: 03-23-2023 End: 03-23-[address] Tony Kay Work Phone: [facility] Start: 03-15-2023 Non-patient / Non-visit Dr. Diego Kay Work Phone: [facility] Start: 03-15-2023 End: 03-15-[address] [facility] Start: 03-12-2023 End: 03-12-[address] Tony Kay Work Phone: [facility] Start: 03-06-2023 End: 03-06-[address] Tony Kay Work Phone: [facility] Work Phone: Start: 03-06-2023 End: 03-06-[address] Tony Kay Work Phone: [facility] Start: 03-01-2023 Non-patient / Non-visit Dr. Diego Kay Work Phone: [facility] Start: 03-01-2023 End: 03-01-[address] Tony Kay Work Phone: [facility] Work Phone: Start: 03-01-2023 End: 03-01-[address] [facility] Start: 02-23-2023 End: 02-23-[address] Tony Kay Work Phone: [facility] Work Phone: Start: 02-23-2023 End: 02-23-[address] Tony Kay Work Phone: [facility] Start: 02-07-2023 End: 02-07-2023 ambulatory [facility] Work Phone: Start: 02-07-2023 End: 02-07-2023 Patient encounter procedure [facility] Start: 11-10-2022 End: 11-10-2022 Patient encounter [...] Date Procedure Procedure Detail Performing Clinician Start: 04-29-2025 Aldosterone measurement, serum Dr. Tony Kay MD Work Phone: Comment on above: Performed at: [address] [id number] Director: Carlos Sim MD, Phone: [phone] Start: 04-29-2025 Assay of prostate specific antigen total Dr. Tony Kay MD Work Phone: Comment on above: This test was performed using the [employer] tPSA method. Measured values of a patient sample can vary depending on the testing procedure used. PSA values determined on patient samples by different testing procedures cannot be used interchangeably. If there is a change in PSA assays while monitoring therapy, sequential testing should be performed to confirm baseline values. Start: 04-29-2025 Vitamin D, 25-hydroxy measurement Dr. Diego Kay MD Work Phone: Comment on above: Vitamin D StatusDeficiency: <20 ng/mL (5 0nmol/L)Insufficiency: 20-30 ng/mL (50-75 nmol/L)Sufficiency: 30-100 ng/mL (75-250 nmol/L)Toxicity: >100 ng/mL (>250 nmol/L) Start: 04-20-2025 CT angiography of coronary arteries Dr. Tony Kay MD Work Phone: Start: 03-31-2025 Measurement of Borrelia burgdorferi antibody Dr. Tony Kay MD Work Phone: Comment on above: Lyme antibodies not detected. Reflex elvin ting is notindicated.No laboratory evidence of infection with B. burgdorferi(Lyme disease). Negative results may occur in patientsrecently infected (less than or equal to 14 days) with B.burgdorferi. If recent infection is suspected, repeattesting on a new sample collected in 7 to 14 days isrecommended.Performed at: [facility] [id number] Director: Hesham Christopher PhD, Phone: [phone] Start: 03-31-2025 X-ray of chest, PA and lateral views Dr. Tony Kay MD Work Phone: Start: 03-10-2025 X-ray of chest, PA and lateral views Dr. Tony Kay MD Work Phone: Start: 03-10-[address] Tony Kay MD Work Phone: Comment on above: Test Ordered: [id number] CBG with Free Corti solCort.Bind.Glob.(CBG) 2.2 mg/dL ES Reference Range: .This test was developed and its performance characteristicsdetermined by [employer]. It has not been cleared or approvedby the Food and Drug Administration.Reference Range:Adults: 1.7 - 3.1Cortisol, Serum LCMS 14 ug/dL ES Reference Range: .This test was developed and its performance characteristicsdetermined by [employer]. It has not been cleared or approvedby the Food and Drug Administration.Reference Range:Adults8:00 AM 8.0 - 194:00 PM 4.0 - 11Free Cortisol, Serum 1.6 ug/dL ES Reference Range: .Reference Range:Adults 8:00 AM: 0.2 - 1.8Percent Free Cortisol, Serum 12 % ES Reference Range: .Reference Range:Adults 8:00 am: 2.3 - 9.5Performed at: [facility] [address] [id number] Director: Evan Savage MD, Phone: [phone] at: [address] [id number] Director: Hesham Christopher PhD, Phone: [phone] Start: 03-10-2025 D-dimer assay, quantitative Dr. Tony ceballos MD Work Phone: Comment on above: NORMAL D-Dimer level (<0.50) indicates n o DVT or PE. Start: 02-26-[address] Tony Kay MD Work Phone: Comment on above: Test Ordered: [id number] Dexamethasone, Seru mDexamethasone, Serum 452 ng/dL ES Reference Range: .This test was developed and its performance characteristicsdetermined by [facility]. It has not been cleared or approvedby the Food and Drug Administration.Reference Range:Adults baseline: <308:00 AM following 1 mg dexamethasone previous evenin - 2958:00 AM following 8 mg dexamethasone(4 x 2 mg doses) previous day: 1600 - 2850Performed at: [facility] [id number] [place], [place] [id number] Director: Evan Savage MD, Phone: [phone] at: [facility] - [facility] [address] [id number] Director: Hesham Christopher PhD, Phone: [phone] Start: 02-04-2025 Computed tomography of abdomen and [...] RSV Vaccine (1 - 1-dose 75+ series) [facility] Start: 05-13-2026 BP Controlled (<130/80) BP Controlle d (<130/80) [facility] Start: 10-30-2025 End: 10-30-2025 Patient encounter procedure 10/30/2025 2:30 PM EST Office Visit [facility] [address] [place] [address] Kim Rose, OD [address] [place] [address] annual Ophthalmology Comment on above: annual Start: 06-24-2025 End: 06-24-2025 Patient encounter procedure 06/24/2025 8:00 AM EDT Office Visit Neurology [address] [place] [address] Isa Lema APRN.SIGNAL CIRCUIT DESIGNER [address] [place] [address] insomia - per web request Neurology Comment on above: insomia - per web re quest Start: 06-08-2025 Influenza vaccination [facility] Start: 06-01-2025 End: 06-01-2025 Patient encounter procedure 06/01/2025 9:45 AM EDT Office Visit [facility] [address] [place] [address] Kim Rose, OD [address] [place] [address] Diagnostics[facility] [address] [address] right eye reading issues Ophthalmology Comment on above: right eye reading is sues Start: 03-10-2025 End: 03-10-2025 Procedure [facility] Start: 03-10-2025 Measurement of C-reactive protein using high sensitivity technique [facility] Start: 02-26-2025 Procedure [facility] Start: 02-17-2025 End: 05-19-2025 ALDOSTERONE/DIRECT RENIN RATIO ALDOSTERONE/DIRECT RENIN RATIO Lab Routine Hypertension, unspecified type Expected: 02/17/2025, Expires: 05/19/2025 [facility] Comment on above: Expected: 02/17/2025 , Expires: 05/19/2025 Start: 02-17-2025 End: 05-19-2025 Potassium [Moles/volume] in Serum or Plasma POTASSIUM Lab Routine Hypertension, unspecified type Expected: 02/17/2025, Expires: 05/19/2025 [facility] Work Phone: Comment on above: Expected: 02/17/2025 , Expires: 05/19/2025 Start: 01-06-2025 End: 01-06-2025 Patient encounter procedure 01/06/2025 11:00 AM EDT Office Visit Kidney Medicine [facility] [address] [place] [address] [place] [address] [place] [address] CKD stage 3a, GFR 45-59 ml/min (HCC) [N18.31] [facility] Comment on above: CKD stage 3a, GFR 45 -59 ml/min (HCC) [N18.31] Start: 12-09-2024 Covid-19 Vaccine ( season) Covid-19 Vaccine ( season) [facility] Start: 11-28-2024 End: 02-27-2025 ALDOSTERONE/DIRECT RENIN RATIO ALDOSTERONE/DIRECT RENIN RATIO Lab Routine Hypertension, unspecified type Expected: 11/28/2024, Expires: 02/27/2025 [facility] Work Phone: Comment on above: Expected: 11/28/2024 , Expires: 02/27/2025 Start: 11-28-2024 End: 02-27-2025 Corticotropin [Mass/volume] in Plasma ACTH BLD Lab Routine Low serum cortisol level Expected: 11/28/2024, Expires: 02/27/2025 [facility] Comment on above: Expected: 11/28/2024 , Expires: 02/27/2025 Start: 11-28-2024 End: 02-27-2025 Cortisol [Mass/volume] in Serum or Plasma CORTISOL, SERUM Lab Routine Low serum cortisol level Expected: 11/28/2024, Expires: 02/27/2025 [facility] Comment on above: Expected: 11/28/2024 , Expires: 02/27/2025 Start: 11-28-2024 End: 02-27-2025 Potassium [Moles/volume] in Serum or Plasma POTASSIUM Lab Routine Hypertension, unspecified type Expected: 11/28/2024, Expires: 02/27/2025 [facility] Comment on above: Expected: 11/28/2024 , Expires: 02/27/2025 Start: 11-28-2024 End: 11-28-2024 Patient encounter procedure 11/28/2024 1:40 PM EST Office Visit Endocrinology [address] [place], [place] [id number] Milton Villanueva MD [address] [place], [place] [id number] ALDOSTERONISM Endocrinology Comment on above: ALDOSTERONISM Start: 10-08-2024 Advance Directive Discussion Advance Directive Discussion [facility] Start: 06-08-2024 Influenza vaccination Influenza Vacc ine (#1) [facility] Start: 07-20-2023 Patient discharge [facility] Start: 07-20-2023 Anes integ musc & nr v head neck&posterior trunk ANESTH HEAD/NECK/PTRUNK [facility] Start: 07-20-2023 Exc b9 les mrgn xcp sk tg f/e/e/n/l/m 1.1-2.0cm EXC FACE-MM B9+ONEAL 1.1-2 CM [facility] Start: 10-08-2022 ADVANCE DIRECTIVE DISCUSSION ADVANCE DIRECTIVE DISCUSSION [facility] Start: 10-08-2022 DEPRESSION ASSESSMENT DEPRESSION ASS ESSMENT [facility] Start: 06-08-2022 Influenza vaccination INFLUENZA (#1) [facility] Start: 10-08-2021 ADVANCE DIRECTIVE DISCUSSION ADVANCE DIRECTIVE DISCUSSION [facility] Start: 10-08-2021 DEPRESSION ASSESSMENT DEPRESSION ASS ESSMENT [facility] Start: 05-01-2021 PROSTATE CANCER SCREENING DISCUSSION PROSTATE CANCER SCREENING DISCUSSION [facility] Start: 05-01-2021 Prostate specific antigen measurement Prostate Cancer Screening Discussion [facility] Start: 12-30-2020 PNEUMOCOCCAL: 65+ (1 - PCV) PNEUMOCOCCAL: 65+ (1 - PCV) [facility] Start: 12-06-2020 Medicare Annual Wellness Visit Medicare Annual Wellness Visit [facility] Start: 05-01-2019 DIABETES SCREEN DIABETES SCREEN [facility] Start: 05-01-2019 Diabetes Screening Diabetes Screenin g [facility] Start: 05-28-2017 End: 05-28-2017 Appointment Appointment [facility] [employer] Work Phone: Start: 05-24-2017 End: 05-28-2017 Diagnostic colonoscopy Colonoscopy [facility] [employer] Work Phone: Start: 08-09-2016 Urine microalbumin profile DTaP,Tdap,Td Vaccine (1 - Tdap) [facility] Start: 2015 RSV Vaccine (1 - Ris k 60-74 years 1-dose series) RSV Vaccine (1 - Risk 60-74 years 1-dose series) [facility] Start: 11-08-2012 Colonoscopy COLONOSCOPY [facility] Start: 11-08-2012 COLORECTAL CANCER SCREENING COLORECTAL CANCER SCREENING [facility] Start: 11-08-2012 Screening for malign ant neoplasm of colon [facility] Start: 12-30-2005 Pneumococcal Vaccine : 50+ (1 of 1 - PCV) Pneumococcal Vaccine: 50+ (1 of 1 - PCV) [facility] Start: 12-30-2005 SHINGRIX VACCINE (1 of 2) SHINGRIX VACCINE (1 of 2) [facility] Start: 12-30-2000 COLOGUARD (FIT-DNA) COLOGUARD (FIT-D NA) [facility] Start: 12-30-[address] COLONOGRAPHY [facility] Start: 12-30-2000 FECAL OCCULT BLOOD FECAL OCCULT BLOO D [facility] Start: 12-30-2000 Screening for malign ant neoplasm of colon [facility] Start: 12-30-2000 [facility] Start: 12-30-1990 Lipid panel Lipid Screening [facility] Start: 12-30-1990 LIPID SCREEN LIPID SCREEN [facility] Start: 12-30-1974 Urine microalbumin profile DTAP,TDAP,TD (1 - Tdap) [facility] Start: 12-30-1973 Annual PCP Team Blank Driller julianne Disease Visit Annual PCP Team Chronic Disease Visit [facility] Start: 12-30-1973 Anxiety Screening Anxiety Screening [facility] Start: 12-30-1973 Depression Screening Depression Scre ening [facility] Start: 12-30-1973 HEPATITIS C SCREENING HEPATITIS C [facility] Start: 12-30-1973 Hepatitis C screening Hepatitis C [facility] Patient referral [facility] Work Phone: [facility] Immunizations Immunization Date Immunization Notes Care Provider Fa cility 01-11-2021 Covid (Pfizer) [facility] 12-21-2020 Covid (Pfizer) [facility] Payers Date Payer Category Payer Self-pay [id number] 2020 Medicare [id number] 2020 Private Health Insurance [employer] MED ICARE SUPPLEMENT [id number] 2020 Medicare [id number] 2016 Unknown [id number] 2014 Unknown [id number] 2013 Unknown [id number] Unknown [id number] Unknown [id number] 2.16.840.1.103176.3.579.2. 462 Unknown [id number] 2.16.840.1.948617.3.579.2. 462 Unknown [id number] 2.16.840.1.540416.3.579.2. 462 Unknown [id number] 2.16.840.1.734299.3.579.2. 462 Unknown [id number] 2.16.840.1.950885.3.579.2. 462 Unknown [id number] 2.16.840.1.622839.3.579.2. 462 Unknown [id number] 2.16.840.1.171329.3.579.2. 462 Unknown [id number] 2.16.840.1.638793.3.579.2. 462 Unknown [id number] 2.16.840.1.243791.3.579.2. 462 Unknown [id number] 2.16.840.1.394418.3.579.2. 462 Unknown [id number] 2.16.840.1.837681.3.579.2. 462 Unknown [id number] 2.16.840.1.788711.3.579.2. 462 Unknown [id number] 2.16.840.1.721382.3.579.2. 462 Unknown [id number] 2.16.840.1.276556.3.579.2. 462 Unknown [id number] 2.16.840.1.591925.3.579.2. 462 Unknown [id number] 2.16.840.1.378622.3.579.2. 462 Unknown [id number] 2.16.840.1.897395.3.579.2. 462 Unknown [id number] 2.16.840.1.092800.3.579.2. 462 Unknown [id number] 2.16.840.1.738868.3.579.2. 462 Unknown [id number] 2.16.840.1.189665.3.579.2. 462 Unknown [id number] 2.16.840.1.566935.3.579.2. 462 Unknown [id number] 2.16.840.1.784305.3.579.2. 462 Unknown [id number] 2.16.840.1.968138.3.579.2. 462 Unknown [id number] 2.16.840.1.507901.3.579.2. 462 Unknown [id number] 2.16.840.1.086895.3.579.2. 462 Unknown [id number] 2.16840.1.945252.3.579.2. 462 Unknown [id number] 2.16.840.1.978352.3.579.2. 462 Social History Date Type Detail Facility Start: 11-01-2011 End: 06-11-2024 Tobacco smoking status IAIS Never smoked tobacco [facility] Start: 11-01-2011 Tobacco use and exposure Smokeless tobacco non-user [facility] Start: 09-12-2022 End: 06-01-2025 Alcohol intake Current non-drinker of alcohol (finding) [facility] Start: 1955 Sex Assigned At Male [facility] Start: 01-28-2018 End: 11-26-2023 Tobacco smoking status IAIS Unknown if ever smoked [facility] Start: 10-30-2024 End: 11-28-2024 History of Social function [facility] Start: 10-30-2024 End: 11-28-2024 Tobacco use panel [facility] Start: 09-08-2012 National Score (1-10 0), lower number is lower risk 35 [facility] Start: 09-06-2022 Gender identity Identifies as male gender (finding) [facility] Start: 09-06-2022 Sexual orientation Heterosexual (claudia angelica) [facility] Start: 12-12-2024 End: 01-13-2025 Sex Male (finding) [facility] Medical Equipment Procedure Code Equipment Code Equipment Origin al Text Equipment Identifier Dates Mesh Micro 61d02p9.2mm - [id number] Start: 05-24-2015 Pin Crss Sd Scr 1.5x4mm - [id number] Start: 05-24-2015 Goals Date Patient Goal Desired Activity /State Functional Status Date Assessment Result Facility 05-26-2015 Are you deaf, or do you have serious difficulty hearing No 05/26/2015 12:23 PM EDT Mirlande Torres APRN.KRUPA No [facility] Work Phone: 05-26-2015 Are you blind, or do you have serious difficulty seeing, even when wearing glasses No 05/26/2015 12:23 PM EDT Mirlande Torres APRN.KRUPA No [facility] 05-26-2015 Do you have serious difficulty walking or climbing stairs No 05/26/2015 12:23 PM EDT Mirlande Torres, MANUAL QA TESTER.SIGNAL CIRCUIT DESIGNER No [facility] 05-26-2015 Do you have difficul ty dressing or bathing No 05/26/2015 12:23 PM EDT Mirlande Torres, MANUAL QA TESTER.SIGNAL CIRCUIT DESIGNER No [facility] 05-26-2015 Because of a physica l, mental, or emotional condition, do you have difficulty doing errands alone such as visiting a physician's office or shopping No 05/26/2015 12:23 PM EDT Mirlande Torres APRN.SIGNAL CIRCUIT DESIGNER No [facility] Mental Status Date Assessment Result Facility 07-20-2023 Cognitive function Voice/Name [facility] Work Phone: 05-26-2015 Because of a physica l, mental, or emotional condition, do you have serious difficulty concentrating, remembering, or making decisions No 05/26/2015 12:23 PM EDT Mirlande Torres APRN.SIGNAL CIRCUIT DESIGNER No [facility] Clinical Notes 09-12-2022 to 06-01-2025 Kim Rose, OD - 06/01/2025 3:03 PM EDTPatient InstructionsMilton Villanueva MD - 02/17/2025 4:27 PM EDTPatient Drew Smith DO - 01/06/2025 11:00 AM EDT Note Date & Type Note Facility 06-01-2025 Note HNO ID: [id number] Author: KIM ROSE, OBINNA Service: ? Author Type: Academic Advising Director Type: Progress Notes Filed: 06/01/2025 15:12 Note Text: 1. Dry eye syndrome of both eyes Recommended Systane PF Pro (patient notes fluctuating vision) 2. Blurred vision, bilateral (Primary) No change in distance rx either eye No change in near rx either eye No change in prism Small change to intermediate/computer rx (20 inches per patient) Recommended having glasses adjusted to elevate bifocal but if not sufficient, may need glasses remade with bifocal seg height higher Finalized spec rx with small change in intermediate power 3. Monocular exotropia with other noncomitancies, left eye 4. Hypertropia of left eye Stable prism Monitor Follow-up as scheduled for annual exam in October with mac OCT I have confirmed and edited as necessary the relevant HPI, ophthalmic history, ROS, and the neuro exam findings as obtained by others. I have seen and examined Baltazar Alejandre Matilda. I have discussed the case and the management of this patient's care with the Resident/Fellow, if applicable. I also have reviewed and agree with the assessment and plan as stated above and agree with all of its relevant components. Kim Rose, OD June 01, 2025 3:03 PM [facility] 06-01-2025 History of Present illness Narrative 1. Dry eye syndrome of both eyes Recommended Systane PF Pro (patient notes fluctuating vision) 2. Blurred vision, bilateral (Primary) No change in distance rx either eye No change in near rx either eye No change in prism Small change to intermediate/computer rx (20 inches per patient) Recommended having glasses adjusted to elevate bifocal but if not sufficient, may need glasses remade with bifocal seg height higher Finalized spec rx with small change in intermediate power 3. Monocular exotropia with other noncomitancies, left eye 4. Hypertropia of left eye Stable prism Monitor Follow-up as scheduled for annual exam in October with mac OCT I have confirmed and edited as necessary the relevant HPI, ophthalmic history, ROS, and the neuro exam findings as obtained by others. I have seen and examined Baltazar Bay. I have discussed the case and the management of this patient's care with the Resident/Fellow, if applicable. I also have reviewed and agree with the assessment and plan as stated above and agree with all of its relevant components. Kim Rose OD June 01, 2025 3:03 PM documented in this encounter [facility] 03-31-2025 Radiology Diagnostic study note [facility] Imaging Services [address] [place] [address] Chest PA and Lateral MR#: [id number] Acct: [id number] Name: BALTAZAR BAY Rep #: [id number] : 1955 M 69 From: Gaston Harrington MD PCP: Dr. Tony Kay MD Status: REG CLI Study:Chest PA and Lateral Date of Exam: 03/31/25 Exam# [id number] Ordering Dr: Diego Kay MD PROCEDURE: CHEST PA AND LATERAL 03/31/2025 REASON FOR EXAM: CHEST PAIN TECHNIQUE: CHEST PA AND LATERAL COMPARISON: Chest x-ray of 03/10/2025. RAD/Chest PA and Lateral IMPRESSION: Lungs appear clear of acute disease, and unchanged. No pleural effusion or pneumothorax is noted. The cardiomediastinal silhouette is stable, without evidence of cardiomegaly. Mild thoracic spine degenerative changes are noted. No evidence of acute cardiopulmonary disease. Reading Location: [place] [address] CC: Dr. Tony Kay MD ~ Clinical Product Specialist: Signed [facility] 03-10-2025 Radiology Diagnostic study note [facility] Imaging Services [address] [place] [address] Chest PA and Lateral MR#: [id number] Acct: [id number] Name: BALTAZAR BAY Rep #: [id number] : 1955 M 69 From: Jya Barnes MD PCP: Dr. Tony Kay MD Status: REG CLI Study:Chest PA and Lateral Date of Exam: 03/10/25 Exam# [id number] Ordering Dr: Diego Kay MD PROCEDURE: CHEST [...] evidence of acute cardiopulmonary pathology. Reading Location: [id number] CC: Dr. Tony Kay MD ~ Clinical Product Specialist: Signed [facility] Work Phone: 02-17-2025 Instructions Milton Villanueva MD - 02/17/2025 4:39 PM EDT Please repeat labs when potassium is repleted documented in this encounter [facility] 02-17-2025 Note HNO ID: [id number] Author: MILTON VILLANUEVA MD Service: ? Author [...] on fluid retention. He follows [facility] abstracts, [facility] and [facility] articles, and reports he thought the fluid [...] CT abdomen and pelvis with contrast at [facility] on 06/27/2023 shows unremarkable adrenal [...] (FLORASTOR ORAL) Take by mouth once daily. irbpg-kq-8-rhs-dft-wgjwqcf-ast 862-215-75-64 mg cap zinc sulfate (ZINC-220) 220 mg [...] not taking: Reported (more content not included)... [facility] 02-17-2025 History of Present illness Narrative ENDOCRINOLOGY [...] on fluid retention. He follows [facility] abstracts, [facility] and [facility] articles, and reports he thought the fluid [...] CT abdomen and pelvis with contrast at [facility] on 06/27/2023 shows unremarkable adrenal [...] (FLORASTOR ORAL) Take by mouth once daily. mqwgi-xb-6-qmn-ydn-bxoredb-ast 103-789-99-64 mg cap zinc sulfate (ZINC-220) 220 mg [...] (Patient not taking: Reported on 10/30/2024) COENZYME R10-[id number] ORAL Take 600 mg by mouth twice [...] asks about kidney cysts, reports that his television repair teacher told him that the kidneys are functioning [...] Moderate Milton Villanueva MD Endocrinology Associate Staff [facility] Endocrinology and Metabolism [place] [phone] documented in this encounter [facility] 01-11-2025 Radiology Diagnostic study note [facility] Imaging Services [address] [place] [address] Abdomen Limited MR#: [id number] Acct: [id number] Name: BALTAZAR BAY Rep #: [id number] : 1955 M 69 From: Kurt Koch DO PCP: Dr. Tony Kay MD Status: REG CLI Study:Abdomen Limited Date of Exam: 03/01 Exam# [id number] Ordering Dr: Diego Kay MD PROCEDURE: Abdominal [...] Location: [place] CC: Dr. Tony Kay MD ~ Clinical Product Specialist: Signed [facility] 01-06-2025 Drew Garay DO - 01/06/2025 11:46 AM EDT No [...] disease, kidney disease documented in this encounter [facility] 01-06-2025 History of Present illness Narrative NEPHROLOGY [...] SULFATE A ORAL 1,500 mg, DAILY COENZYME C87-Z-[id number] ORAL 600 mg, 2 TIMES DAILY CPAP AT BEDTIME cyanocobalamin (vitamin B-12) 5,000 mcg Doxepin 6 mg tab ferrous sulfate (IRON) 325 mg (65 mg iron) tablet furosemide (LASIX) 40 mg, DAILY Gabapentin 300 mg ORAL Tab 1 tablet, DAILY GLUCOSAMINE HCL ORAL 1,500 mg, DAILY vwjvk-fe-6-sso-xxn-rcrxekx-ast 404-186-27-64 mg cap Lactobacillus acidophilus (PROBIOTIC ORAL) DAILY [...] immunosuppression, hospitalization,de-escalate care) documented in this encounter [facility] 01-06-2025 Note HNO ID: [id number] Author: DREW RHODES DO Service: ? Author [...] SULFATE A ORAL 1,500 mg, DAILY COENZYME K95-J-SOAGHKGDT ORAL 600 mg, 2 TIMES DAILY CPAP AT BEDTIME cyanocobalamin (vitamin B-12) 5,000 mcg Doxepin 6 mg tab ferrous sulfate (IRON) 325 mg (65 mg iron) tablet furosemide (LASIX) 40 mg, DAILY Gabapentin 300 mg ORAL Tab 1 tablet, DAILY GLUCOSAMINE HCL ORAL 1,500 mg, DAILY cqmfp-hc-8-dpx-tze-wqcdyak-ast 870-567-61-64 mg cap Lactobacillus acidophilus (PROBIOTIC ORAL) DAILY [...] Function, Amylase, AND Lipase ABGs SIGNATURE: Drew Drea, DO DATE: Ma (more content not included)... [facility] 11-28-2024 Instructions Milton Villanueva MD - 11/28/2024 2:37 PM EST Please schedule an appointment with Nephrology documented in this encounter [facility] 11-28-2024 Note HNO ID: [id number] Author: MILTON VILLANUEVA MD Service: ? Author [...] on fluid retention. He follows [facility] abstracts, [facility] and [facility] articles, and reports he thought the fluid [...] CT abdomen and pelvis with contrast at [facility] on 06/27/2023 shows unremarkable adrenal [...] (FLORASTOR ORAL) Take by mouth once daily. sigxy-bn-8-dfs-zcf-vkhxrub-ast 388-469-05-64 mg cap zinc sulfate (ZINC-220) 220 mg [...] mg by mo (more content not included)... [facility] 11-28-2024 History of Present illness Narrative [facility] Initial Clinic Visit Note History of Present Illness: Mr. Baltazar Bay is a 68 year old male coming today as a new patient o me after self referral for evaluation of high aldosterone levels. He reports recommending his PCP to check aldosterone based on 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 He follows [facility] abstracts, [facility] and [facility] articles, and reports he thought the fluid [...] CT abdomen and pelvis with contrast at [facility] on 06/27/2023 shows unremarkable adrenal [...] (FLORASTOR ORAL) Take by mouth once daily. hxbmc-pj-0-wbw-owl-olxbjpx-ast 670-653-83-64 mg cap zinc sulfate (ZINC-220) 220 mg [...] (Patient not taking: Reported on 10/30/2024) COENZYME R95-Y-[id number] ORAL Take 600 mg by mouth twice [...] the plan discussed. Consult to nephrology at [facility] given per his request Follow up if labs are abnormal Patient advised to contact clinic if in case no reponse from clinic in 10 days to 2 weeks after labs are resulted I spent a total of 75 minutes on the date of the service which included preparing to see the patient, bcyu-zt-ztad patient care, completing clinical documentation, obtaining and/or reviewing separately obtained history, performing a medically appropriate examination, counseling and educating the patient/family/caregiver, ordering medications, tests, or procedures, independently interpreting results (not separately reported), and communicating results to the patient/family/caregiver. SIGNATURE: Milton Villanueva MD DATE of SERVICE: November 28, 2024 TIME of SERVICE: 2:14 PM documented in this encounter [facility] 10-30-2024 Note HNO ID: [id number] Author: KIM ROSE OD Service: ? Author Type: PRESS LOADER Type: Progress Notes Filed: 10/30/2024 16:38 Note [...] Rose, OD October 30, 2024 4:35 PM [facility] 10-30-2024 History of Present illness Narrative 1. [...] year or sooner as needed Kim Rose, OBINNA October 30, 2024 4:35 PM documented in this encounter [facility] 06-16-2024 Note [facility] Medical Records Department [address] [place] [id number] History Physical Exam 06/16/24 0814 MR#: [id number] Acct: [id number] Name: BALTAZAR BAY Rep #: [id number] : 1955 68 From: Ben Friend DO PCP: Dr. Tony Kay MD Status:[facility] Location: [place] [address] History and Physical Date of Admission: 06/16/24 JACKIE BAY, is a 68 M who presents to the office today for follow up. PCP OV with leg pain for three weeks, HTN. Notes recurrent diverticulitis. ?CT abd/pel 01.28.18???renal calculi, obstructive with inflammation; colonic diverticulosis. ?Biochemical 04.06.23???BMP without pertinent abnormality ? CRP H10.3 ?Biochemical [...] Appearance: average body habitus and well nourished HENMT Head: normal to inspection Ears: hearing grossly [...] or vomiting ju (more content not included)... [facility] 11-10-2022 History of Present illness Narrative (H26.491) [...] 2022 1:05 PM documented in this encounter [facility] 11-01-2022 History of Present illness Narrative Assessment [...] others. I have seen and examined Baltazar Bya. I have discussed the case and the management of this patient's care with the Resident/Fellow, if applicable. I also have reviewed and agree with the assessment and plan as stated above and agree with all of its relevant components. Sung Carney MD documented in this encounter [facility] 11-01-2022 Instructions Sung Carney MD - 11/01/2022 2:09 PM EST Images from the original note were not included. documented in this encounter [facility] 10-31-2022 History of Present illness Narrative 1. [...] 2022 4:23 PM documented in this encounter [facility] 09-12-2022 History of Present illness Narrative Assessment [...] 2022 3:32 PM documented in this encounter [facility] Evaluation note Diagnosis Blurred vision, bilateral- Primary Other specified visual disturbances Pseudophakia of both eyes Lens replaced by other means 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, bilateral Dry eye syndrome of both eyes [facility] Diagnosis 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- Primary After-cataract, obscuring vision Blurred vision, bilateral Other specified visual disturbances 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, 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, left eye [facility] 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, right- Primary [facility] Diagnosis 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, right- Primary 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 After-cataract, obscuring vision Blurred vision, bilateral Other specified visual disturbances 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, left eye Dry eye syndrome of both eyes [facility] noteNo assessment information availableWGenesis [facility] Work Phone: Evaluation note* Diagnosis Onset Date Resolution Status Keloid scar acute Neoplasm of uncertain behavior of skin acute Keloid scar acute Diarrhea acute Diverticulitis [facility] Work Phone: Evaluation note* Diagnosis Onset Date Resolution Status Keloid scar acute Neoplasm of uncertain behavior of skin acute Keloid scar acute Diarrhea acute Diverticulitis chronic Neoplasm of uncertain behavior of skin acute Epidermal inclusion cyst acu [facility] Work Phone: Evaluation note* Diagnosis Onset Date Resolution Status Keloid scar acute Neoplasm of uncertain behavior of skin acute Keloid scar acute Diarrhea acute Diverticulitis chronic Neoplasm of uncertain behavior of skin acute Epidermal inclusion cyst acu te Epidermal inclusion cyst acu [facility] Work Phone: Evaluation note* Diagnosis Onset Date Resolution Status Neoplasm of uncertain behavior of skin acute Epidermal inclusion cyst acu te Epidermal inclusion cyst acu [facility] Work Phone: Evaluation note* Diagnosis Onset Date Resolution Status Epidermal inclusion cyst acu te Diarrhea acute Diverticulitis chronic [facility] Work Phone: Evaluation note* Diagnosis Onset Date Resolution Status Diarrhea acute Diverticulitis [facility] Work Phone: Evaluation note* Diagnosis Blurred vision, bilateral- Primary Other specified visual disturbances Monocular exotropia with other noncomitancies, left eye Hypertropia of left eye Dry eye syndrome of both eyes documented in this encounter [facility] note* Diagnosis Low serum cortisol level- Primary Glucocorticoid deficiency CKD stage 3a, GFR 45-59 ml/min ([facility]) Hypertension, unspecified type documented in this encounter [facility] note* Diagnosis Elevated serum creatinine- Primary Other nonspecific findings on examination of blood documented in this encounter [facility] note* Diagnosis Hypertension, unspecified type- Primary documented in this encounter [facility] note* Diagnosis Dry eye syndrome of both eyes- Primary Blurred vision, bilateral Other specified visual disturbances Monocular exotropia with other noncomitancies, left eye Hypertropia of left eye documented in this encounter [facility] for referral (narrative)No reason for referral information availableWGenesis Hospital Work Phone: Advance Directives No Advanced Directives Records FoundDocuments on File Type Date Recorded Patient Health Educator Expl anation Advance Directive(s) 05/27/2015 5:37 PM Advance Directive Response Recorded Date/ Time Living Will No January 28, 2018 4:14am Power of Truck Loader Overhead Crane No January 28 4:14am Advance Directive Response Recorded Date/ Time Living Will No January 28, 2018 3:14am Power of Truck Loader Overhead Crane No January 28 3:14am Documents on File Type Date Recorded Patient Health Educator Expl anation Advance Directive(s) 05/27/2015 5:37 [...] ADD CXR March 10, 2025 9:34a m Chief Complaint Admit Date NEED ORDER January 03, 2025 9:5 5am FATTY INFILTRATION January 10, 2025 7:51 am RENAL CYST February 04, 2025 1:4 4pm ADD CXR March 10, 2025 9:34a m CHEST PAIN March 31, 2025 10:2 3am Chief Complaint Admit Date FATTY INFILTRATION January 10, 2025 7:51 am RENAL CYST February 04, 2025 1:4 4pm ADD CXR March 10, 2025 9:34a m CHEST PAIN March 31, 2025 10:2 3am ATYPICAL CHEST PAIN April 20, 2025 7:[address] CALCIUM SCORING April 20, 2025 7:13 am Family History No Family History Records Found [...] or prosecute any alcohol or drug abuse patient.[facility] the event this information is protected by the Federal Confidentiality of Alcohol and Drug Abuse Patient Records regulations: The Federal rules restrict any use of the information to criminally investigate or prosecute any alcohol or drug abuse patient.[facility] the event this information is protected by the Federal Confidentiality of Alcohol and Drug Abuse Patient Records regulations: The Federal rules restrict any use of the information to criminally investigate or prosecute any alcohol or drug abuse patient.[facility] the event this information is protected by the Federal Confidentiality of Alcohol and Drug Abuse Patient Records regulations: The Federal rules restrict any use of the information to criminally investigate or prosecute any alcohol or drug abuse patient.[facility] the event this information is protected by the Federal Confidentiality of Alcohol and Drug Abuse Patient Records regulations: The Federal rules restrict any use of the information to criminally investigate or prosecute any alcohol or drug abuse patient.[facility] the event this information is protected by the Federal Confidentiality of Alcohol and Drug Abuse Patient Records regulations: The Federal rules restrict any use of the information to criminally investigate or prosecute any alcohol or drug abuse patient.[facility] the event this information is protected by the Federal Confidentiality of Alcohol and Drug Abuse Patient Records regulations: The Federal rules restrict any use of the information to criminally investigate or prosecute any alcohol or drug abuse patient.[facility] the event this information is protected by the Federal Confidentiality of Alcohol and Drug Abuse Patient Records regulations: The Federal rules restrict any use of the information to criminally investigate or prosecute any alcohol or drug abuse patient.[facility] the event this information is protected by the Federal Confidentiality of Alcohol and Drug Abuse Patient Records regulations: The Federal rules restrict any use of the information to criminally investigate or prosecute any alcohol or drug abuse patient.[facility] the event this information is protected by the Federal Confidentiality of Alcohol and Drug Abuse Patient Records regulations: The Federal rules restrict any use of the information to criminally investigate or prosecute any alcohol or drug abuse patient.[facility] GeneralIn the event this information is protected by the Federal Confidentiality of Alcohol and Drug Abuse Patient Records regulations: The Federal rules restrict any use of the information to criminally investigate or prosecute any alcohol or drug abuse patient.[facility] GeneralIn the event this information is protected by the Federal Confidentiality of Alcohol and Drug Abuse Patient Records regulations: The Federal rules restrict any use of the information to criminally investigate or prosecute any alcohol or drug abuse patient.[facility] Reason for Visit (unrecogniz ed section and [...] Diagnoses CKD stage 3a, GFR 45-59 ml/min ([facility]) Procedures CONSULT TO NEPHROLOGY OFFICE/OUTPATIENT NEW HIGH MDM 60 MINUTES Milton Villanueva MD [address] [place] [address] Phone: tel: fax: Referral ID Status Reason Start Date Expiration Date V isits Requested Visits Authorized [id number] Closed PCP Requested Referral 11/28/2024 11/28/2025 1 1 Reason Comments [facility]urred [facility] Difficulty Reading right eye Care Teams (unrecognized sec tion and content) Pillowcase Cutter Relationship Specialty Start Date End Date Tony Kay MD PCP - General Family Medicine 10/23/11 Pillowcase Cutter Relationship Specialty Start Date End Date Tony Kay MD PCP - General Family Medicine 10/23/11 Pillowcase Cutter Relationship Specialty Start Date End Date Tony Kay MD PCP - General Family Medicine 10/23/11 Pillowcase Cutter Relationship Specialty Start Date End Date Tony Kay MD PCP - General Family Medicine 10/23/11 Team Status: Active Member Role Status Dates Dr. Tony Kay MD Family Provider Active Dr. Tony Kay MD Primary Care Provider Active Team Status: Inactive Member Role Status Dates Dr. Tony Kay MD Primary Care Provider, Attending P rovider Active Team Status: Active Member Role Status Dates Dr. Tony Kay MD Primary Care Provider, Referring P rovider Active Dr. Bulmaro Childers MD Attending Provider Active Team Status: Active Member Role Status Dates Dr. Tony Kay MD Primary Care Provider, Attending P rovider Active Team Status: Inactive Member [...] MD Primary Care Provider Active Dr. Tony Kay MD Barb Attending Provider Active Team Status: Inactive Member Role Status Dates Dr. Tony Kay MD Referring Provider Active Dr. Ben Emmanuel DO Attending Provider Active Team Status: Inactive Member Role Status Dates Dr. Tony Kay MD Referring Provider Active Dr. Susan Leo MD Attending Provider Active Team Status: Inactive Member Role Status Mary Bains ROTARY ENGRAVER, ROTARY ENGRAVER-C Attending Provider Active Team Status: Inactive Member [...] Kay MD Primary Care Provider, Referring P theodorecarlitoalfredo Active Team Status: Inactive Member Role Status Dates Dr. oTny Kay MD Primary Care Provider Active Dr. Pepito Corona MD Attending Provider Active Pillowcase Cutter Relationship Specialty Start Date End Date Tony Kay MD PCP - General Family Medicine 10/23/11 Pillowcase Cutter Relationship Specialty Start Date End Date Tony Kay MD PCP - General Family Medicine 10/23/11 Pillowcase Cutter Relationship Specialty Start Date End Date Tony [...] January 03, 2025 End: January 03, 2025 Pillowcase Cutter Relationship Specialty Start Date End Date Tony [...] February 12, 2025 End: February 12, 2025 Pillowcase Cutter Relationship Specialty Start Date End Date Tony [...] Provider Active St art: March 13, 2025 Team Status: Active Member Role/Relationship Status Dates Dr. Tony Kay MD Primary Care Provider Active Team Status: Inactive Member Role/Relationship Status Dates Dr. Tony Kay MD Primary Care Provider Active Start: January 03, 2025 End: January 03, 2025 Dr. Tony Kay MD Attending Provider Active St art: January 03, 2025 End: January 03, 2025 Dr. Tony Kay MD Referring Provider Active St art: January 03, 2025 End: January 03, 2025 Team Status: Inactive Member Role/Relationship Status Dates Dr. Toyn Kay MD Primary Care Provider Active Start: January 10, 2025 End: January 10, 2025 Dr. Tony Kay MD Attending Provider Active St art: January 10, 2025 End: January 10, 2025 Dr. Tony Kay MD Referring Provider Active St art: January 10, 2025 End: January 10, 2025 Team Status: Inactive Member Role/Relationship Status Dates Dr. Tony Kay MD Primary Care Provider Active Start: February 04, 2025 End: February 04, 2025 Dr. Tony Kay MD Attending Provider Active St art: February 04, 2025 End: February 04, 2025 Dr. Tony Kay MD Referring Provider Active St art: February 04, 2025 End: February 04, 2025 Team Status: Inactive Member Role/Relationship Status Dates Dr. Tony Kay MD Primary Care Provider Active Start: February 07, 2025 End: February 07, 2025 Dr. Tony Kay MD Attending Provider Active St art: February 07, 2025 End: February 07, 2025 Dr. Tony Kay MD Referring Provider Active St art: February 07, 2025 End: February 07, 2025 Team Status: Inactive Member Role/Relationship Status Dates Dr. Tony Kay MD Primary Care Provider Active Start: February 12, 2025 End: February 12, 2025 Dr. Tony Kay MD Attending Provider Active St art: February 12, 2025 End: February 12, 2025 Dr. Tony Kay MD Referring Provider Active St art: February 12, 2025 End: February 12, 2025 Team Status: Inactive Member Role/Relationship Status Dates Dr. Tony Kay MD Primary Care Provider Active Start: February 23, 2025 End: February 23, 2025 Dr. Tony Kay MD Attending Provider Active St art: February 23, 2025 End: February 23, 2025 Dr. Tony Kay MD Referring Provider Active St art: February 23, 2025 End: February 23, 2025 Team Status: Inactive Member Role/Relationship Status Dates Dr. Tony Kay MD Primary Care Provider Active Start: February 26, 2025 End: February 26, 2025 Dr. Tony Kay MD Attending Provider Active St art: February 26, 2025 End: February 26, 2025 Dr. Tony Kay MD Referring Provider Active St art: February 26, 2025 End: February 26, 2025 Team Status: Inactive Member Role/Relationship Status Dates Dr. Tony Kay MD Primary Care Provider Active Start: March 10, 2025 End: March 10, 2025 Dr. Tony Kay MD Attending Provider Active St art: March 10, 2025 End: March 10, 2025 Dr. Tony Kay MD Referring Provider Active St art: March 10, 2025 End: March 10, 2025 Team Status: Active Member Role/Relationship Status Dates Dr. Tony Kay MD Primary Care Provider Active Start: March 30, 2025 Dr. Tony Kay MD Attending Provider Active St art: March 30, 2025 Dr. Tony Kay MD Referring Provider Active St art: March 30, 2025 Team Status: Active Member Role/Relationship Status Dates Dr. Tony Kay MD Primary Care Provider Active Start: March 31, 2025 Dr. Tony Kay MD Attending Provider Active St art: March 31, 2025 Dr. Tony Kay MD Referring Provider Active St art: March 31, 2025 Team Status: Inactive Member Role/Relationship Status Dates Dr. Tony Kay MD Primary Care Provider Active Start: March 31, 2025 End: March 31, 2025 Dr. Tony Kay MD Attending Provider Active St art: March 31, 2025 End: March 31, 2025 Dr. Tony Kay MD Referring Provider Active St art: March 31, 2025 End: March 31, 2025 Team Status: Inactive Member Role/Relationship Status Dates Dr. Tony Kay MD Primary Care Provider Active Start: March 31, 2025 End: March 31, 2025 Dr. Tony Kay MD Attending Provider Active St art: March 31, 2025 End: March 31, 2025 Dr. Tony Kay MD Referring Provider Active St art: March 31, 2025 End: March 31, 2025 Team Status: Inactive Member Role/Relationship Status Dates Dr. Tony Kay MD Primary Care Provider Active Start: March 31, 2025 End: March 31, 2025 Dr. Tony Kay MD Attending Provider Active St art: March 31, 2025 End: March 31, 2025 Dr. Tony Kay MD Referring Provider Active St art: March 31, 2025 End: March 31, 2025 Team Status: Inactive Member Role/Relationship Status Dates Dr. Tony Kay MD Primary Care Provider Active Start: April 06, 2025 End: April 06, 2025 Dr. Tony Kay MD Attending Provider Active St art: April 06, 2025 End: April 06, 2025 Dr. Tony Kay MD Referring Provider Active St art: April 06, 2025 End: April 06, 2025 Pillowcase Cutter Relationship Specialty Start Date End Date Tony Kay MD PCP - General Family Medicine 10/23/11 Team Status: Inactive Member Role/Relationship Status Dates Dr. Tony Kay MD Primary Care Provider Active Start: January 10, 2025 End: January 10, 2025 Dr. Tony Kay MD Attending Provider Active St art: January 10, 2025 End: January 10, 2025 Dr. Tony Kay MD Referring Provider Active St art: January 10, 2025 End: January 10, 2025 Team Status: Inactive Member Role/Relationship Status Dates Dr. Tony Kay MD Primary Care Provider Active Start: February 04, 2025 End: February 04, 2025 Dr. Tony Kay MD Attending Provider Active St art: February 04, 2025 End: February 04, 2025 Dr. Tony Kay MD Referring Provider Active St art: February 04, 2025 End: February 04, 2025 Team Status: Inactive Member Role/Relationship Status Dates Dr. Tony Kay MD Primary Care Provider Active Start: February 07, 2025 End: February 07, 2025 Dr. Tony Kay MD Attending Provider Active St art: February 07, 2025 End: February 07, 2025 Dr. Tony Kay MD Referring Provider Active St art: February 07, 2025 End: February 07, 2025 Team Status: Inactive Member Role/Relationship Status Dates Dr. Tony Kay MD Primary Care Provider Active Start: February 12, 2025 End: February 12, 2025 Dr. Tony Kay MD Attending Provider Active St art: February 12, 2025 End: February 12, 2025 Dr. Tony Kay MD Referring Provider Active St art: February 12, 2025 End: February 12, 2025 Team Status: Inactive Member Role/Relationship Status Dates Dr. Tony Kay MD Primary Care Provider Active Start: February 23, 2025 End: February 23, 2025 Dr. Tony Kay MD Attending Provider Active St art: February 23, 2025 End: February 23, 2025 Dr. Tony Kay MD Referring Provider Active St art: February 23, 2025 End: February 23, 2025 Team Status: Inactive Member Role/Relationship Status Dates Dr. Tony aKy MD Primary Care Provider Active Start: February 26, 2025 End: February 26, 2025 Dr. Tony Kay MD Attending Provider Active St art: February 26, 2025 End: February 26, 2025 Dr. Tony Kay MD Referring Provider Active St art: February 26, 2025 End: February 26, 2025 Team Status: Inactive Member Role/Relationship Status Dates Dr. Tony Kay MD Primary Care Provider Active Start: March 10, 2025 End: March 10, 2025 Dr. Tony Kay MD Attending Provider Active St art: March 10, 2025 End: March 10, 2025 Dr. Tony Kay MD Referring Provider Active St art: March 10, 2025 End: March 10, 2025 Team Status: Inactive Member Role/Relationship Status Dates Dr. Tony Kay MD Primary Care Provider Active Start: March 31, 2025 End: March 31, 2025 Dr. Tony Kay MD Attending Provider Active St art: March 31, 2025 End: March 31, 2025 Dr. Tony Kay MD Referring Provider Active St art: March 31, 2025 End: March 31, 2025 Team Status: Inactive Member Role/Relationship Status Dates Dr. Tony Kay MD Primary Care Provider Active Start: April 06, 2025 End: April 06, 2025 Dr. Tony Kay MD Attending Provider Active St art: April 06, 2025 End: April 06, 2025 Dr. Tony Kay MD Referring Provider Active St art: April 06, 2025 End: April 06, 2025 Team Status: Active Member Role/Relationship Status Dates Dr. Tony Kay MD Primary Care Provider Active Start: April 20, 2025 Dr. Tony Kay MD Attending Provider Active St art: April 20, 2025 Dr. Tony Kay MD Referring Provider Active St art: April 20, 2025 Team Status: Active Member Role/Relationship Status Dates Dr. Tony Kay MD Primary Care Provider Active Start: April 20, 2025 Dr. Tony Kay MD Referring Provider Active St art: April 20, 2025 Dr. Jere Fields MD Attending Provider Active S tart: April 20, 2025 Team Status: Inactive Member Role/Relationship Status Dates Dr. Tony Kay MD Primary Care Provider Active Start: May 02, 2025 End: May 07, 2025 Dr. Tony Kay MD Attending Provider Active St art: May 02, 2025 End: May 07, 2025 Dr. Tony Kay MD Referring Provider Active St art: May 02, 2025 End: May 07, 2025 Pillowcase Cutter Relationship Specialty Start Date End Date Tony Kay MD PCP - General Family Medicine 10/23/11 Pillowcase Cutter Relationship Specialty Start Date End Date Tony Kay MD PCP - General Family Medicine 10/23/11 Goals (unrecognized section and content) Goals may [...] ized section and content) DATE CREATED AUTHOR 05/31/2025 [facility] DATE CREATED AUTHOR AUTHOR'S CRISTAL CUEVAS 06/02/2025 [facility] FOR RECORDS PERTAINING TO PATIENTS WHO ARE [...] BE BASED ON THE PRIMARY CLINICAL RECORDS. [employer] [facility]. provides no warranty or guarantee of the accuracy or completeness of information in this document.
== END | disposition home or self-care (01) ==
LOC: CT 13:18
PROVIDERS: PCP Family Medicine; Referring Provider Family Medicine; Visit Provider Family Medicine
DX: R51.9 Headache, unspecified (principal); Z86.018 Personal history of other benign neoplasm
CPT/HCPCS: 70450

== ENCOUNTER → 2025-06-19 | Outpatient (CLI) | payer MEDICARE, OTHER, SELFPAY ==
--- NOTE | 2025-06-19 19:00 | CT_ITS ---
PROCEDURE: SPINE CERVICAL WITHOUT CONTRAS 06/19/2025 REASON FOR EXAM: SOFT TISSUE DISORDER TECHNIQUE: Procedure Code: CTSPC Modality: CT Procedure: SPINE CERVICAL WITHOUT CONTRAS Coronal and Sagittal reconstruction series were provided. One or more dose reduction techniques were used (e.g., Automated exposure control, adjustment of the mA and/or kV according to patient size, use of iterative reconstruction technique. RADIATION DOSE SUMMARY: CTDlvol: 24 mGy DLP: 394 mGycm COMPARISON: None. FINDINGS: Cervical spine: Odontoid normal. C1-2 interface negative. Vale-py-unrijwvl degenerative disc disease of the cervical spine. [id number]-gm-[id number] facet joint hypertrophy of the cervical spine. Vertebral body heights and alignment otherwise negative. Mild bilateral neural foraminal narrowing C2-C3 mild narrowing to the right C3- C4, mild bilateral neural foramen narrowing C5-C6 and C6-C7. Negative for fractures or dislocations. No orthopedic hardware. Cervicothoracic junction negative. Adjacent structures otherwise negative. Remainder of exam negative. CT/Spine Cervical without Contras IMPRESSION: Multilevel mild degenerative changes cervical spine but no acute abnormality.. Reading Location: [id number]
== END | disposition home or self-care (01) ==
PROVIDERS: PCP Family Medicine; Referring Provider Family Medicine; Visit Provider Family Medicine
DX: M48.02 Spinal stenosis, cervical region (principal)
CPT/HCPCS: 72125

== ENCOUNTER 2025-06-24 08:41 | Outpatient (RCR) | payer MEDICARE, OTHER, SELFPAY ==
[2025-06-09 07:32] LABS: Anion Gap 10 (5-15); BUN 22 mg/dL (4-19); BUN/Creat Ratio 17.8 RATIO (10-20); Calcium,Total 9.3 mg/dL (7.6-11.0); Carbon Dioxide 26.2 mmol/L (21.0-32.0); Chloride 101 mmol/L (98-108); Glucose 114 mg/dL (70-99); Potassium 4.2 mmol/L (3.3-5.1)
[2025-06-12 15:08] LABS: Magnesium 2.4 mg/dL (1.5-2.2)
[2025-06-12 15:09] LABS: Anion Gap 13 (5-15); BUN 22 mg/dL (4-19); BUN/Creat Ratio 18.5 RATIO (10-20); Calcium,Total 9.4 mg/dL (7.6-11.0); Carbon Dioxide 24.5 mmol/L (21.0-32.0); Chloride 101 mmol/L (98-108); Glucose 107 mg/dL (70-99); Potassium 4.1 mmol/L (3.3-5.1)
[2025-06-24 09:59] LABS: Anion Gap 11 (5-15); BUN 20 mg/dL (4-19); BUN/Creat Ratio 16.2 RATIO (10-20); Calcium,Total 9.1 mg/dL (7.6-11.0); Carbon Dioxide 23.5 mmol/L (21.0-32.0); Chloride 106 mmol/L (98-108); Glucose 117 mg/dL (70-99); Potassium 4.3 mmol/L (3.3-5.1)
== END 2025-07-07 18:00 | disposition home or self-care (01) ==
LOC: LAB 08:41
PROVIDERS: PCP Family Medicine; Referring Provider Family Medicine; Visit Provider Family Medicine
DX: G25.81 Restless legs syndrome (principal)
CPT/HCPCS: 36415; 80048; 83735

== ENCOUNTER → 2025-06-29 | Outpatient (CLI) | payer MEDICARE, OTHER, SELFPAY ==
--- NOTE | 2025-06-29 17:46 | STRESSREP ---
Stress Test Report Exercise stress test. 69-year-old man with a history of chest pain. Stress protocol: Resting EKG demonstrates normal sinus rhythm with a rate of 77 bpm resting blood pressure is 142/70 mmHg. The patient exercised according to the regular [place] protocol for a total duration of 6 minutes attaining a maximum heart rate of 136 bpm which was 90% of maximum predicted heart rate; the maximum workload was 7 metabolic equivalents. At rest there were no ST or T wave changes noted to suggest ischemia and at peak exercise upsloping ST changes only were noted which did not meet the criteria for ischemia. No clinical angina was noted the test was terminated due to the target heart rate being achieved/fatigue. The peak blood pressure was 186/88 mmHg. Rate-pressure product was 25,300. Conclusion: Stress test with no EKG criteria for ischemia at a moderate workload.
== END | disposition home or self-care (01) ==
LOC: CVS 09:46
PROVIDERS: PCP Family Medicine; Referring Provider Internal Medicine Cardiovascular Disease; Visit Provider Internal Medicine Cardiovascular Disease
DX: I25.10 Atherosclerotic heart disease of native coronary artery without angina pectoris (principal)
CPT/HCPCS: 93017

== ENCOUNTER → 2025-07-01 | Outpatient (CLI) | payer MEDICARE, OTHER, SELFPAY ==
[2025-07-01 18:54] LABS: AST(SGOT) 20 U/L (<=37); Alanine Aminotransfer ALT/SGPT 26 U/L (<=46); Albumin, Serum 4.0 g/dL (3.4-4.8); Alkaline Phosphatase 72 U/L (40-129); Anion Gap 12 (5-15); BUN 21 mg/dL (4-19); BUN/Creat Ratio 15.8 RATIO (10-20); Calcium,Total 9.3 mg/dL (7.6-11.0); Carbon Dioxide 25.2 mmol/L (21.0-32.0); Chloride 101 mmol/L (98-108); Globulin 3.4 g/dL (2.2-4.2); Glucose 120 mg/dL (70-99); Potassium 4.1 mmol/L (3.3-5.1)
== END | disposition home or self-care (01) ==
LOC: MFPLAB 15:41
PROVIDERS: PCP Family Medicine
DX: R51.9 Headache, unspecified (principal)
CPT/HCPCS: 36415; 80053

== ENCOUNTER 2025-08-07 07:48 | Outpatient (RCR) | payer MEDICARE, OTHER, SELFPAY ==
[2025-08-07 08:48] LABS: Anion Gap 8 (5-15); BUN 23 mg/dL (4-19); BUN/Creat Ratio 18.5 RATIO (10-20); Calcium,Total 9.3 mg/dL (7.6-11.0); Carbon Dioxide 26.2 mmol/L (21.0-32.0); Chloride 103 mmol/L (98-108); Glucose 122 mg/dL (70-99); Potassium 4.6 mmol/L (3.3-5.1)
== END 2025-08-07 18:00 | disposition home or self-care (01) ==
LOC: LAB 07:48
PROVIDERS: PCP Family Medicine; Referring Provider Family Medicine; Visit Provider Family Medicine
DX: G25.81 Restless legs syndrome (principal)
CPT/HCPCS: 36415; 80048

== ENCOUNTER 2025-08-17 07:43 | Outpatient (RCR) | payer MEDICARE, OTHER, SELFPAY ==
[2025-08-17 09:06] LABS: Creatinine, Urine (random) 148.00 mg/dL (39.00-259.00); Microalbumin,Random Urine 31.8 mg/L (<20 mg/L)
[2025-08-17 09:27] LABS: AST(SGOT) 23 U/L (<=37); Alanine Aminotransfer ALT/SGPT 27 U/L (<=46); Albumin, Serum 3.7 g/dL (3.4-4.8); Alkaline Phosphatase 78 U/L (40-129); Anion Gap 12 (5-15); BUN 23 mg/dL (4-19); BUN/Creat Ratio 18.7 RATIO (10-20); Calcium,Total 9.2 mg/dL (7.6-11.0); Carbon Dioxide 21.4 mmol/L (21.0-32.0); Chloride 102 mmol/L (98-108); Globulin 3.2 g/dL (2.2-4.2); Glucose 115 mg/dL (70-99); Potassium 4.3 mmol/L (3.3-5.1)
[2025-08-23 15:07] LABS: Testosterone, % Free 4.01 % (1.50-4.20); Testosterone, Free 5.29 ng/dL (5.00-21.00)
== END 2025-09-05 18:00 | disposition home or self-care (01) ==
LOC: LAB 07:43
PROVIDERS: PCP Family Medicine; Referring Provider Family Medicine; Visit Provider Family Medicine
DX: I10 Essential (primary) hypertension; I70.90 Unspecified atherosclerosis; R51.9 Headache, unspecified
CPT/HCPCS: 36415; 80053; 82043; 82088; 82570; 82627; 84244; 84402; 84403; 82626

== ENCOUNTER → 2025-08-18 | Outpatient (CLI) | payer MEDICARE, OTHER, SELFPAY ==
[2025-08-18 12:39] LABS: 24 HR MICROALBUMIN COLL TIME 24.0 HR (24.0-24.0); 24 HR UR TOTAL VOLUME 1700 ML; 24HR. UA Prot. Total Volume 1700 mL; 24HR. Urine Creatinine 1819.0 mg/24 hr (1040.0-2350.0); 24Hr UA Prot. Collection Time 24.0 HOURS (24.0); Urine Protein (24 Hour) 13.6 mg/dL (<11.9)
[2025-08-18 12:53] LABS: Microalbumin,Random Urine 27.8 mg/L (<20 mg/L); Urine Microalbumin (24 Hour) 47.3 mg/24 HR (0.0-30.0)
== END | disposition home or self-care (01) ==
LOC: MTLAB 11:17
PROVIDERS: PCP Family Medicine; Referring Provider Family Medicine; Visit Provider Family Medicine
DX: R77.0 Abnormality of albumin (principal)
CPT/HCPCS: 81050; 82043; 82570; 84156

== ENCOUNTER 2025-09-24 08:26 | Outpatient (RCR) | payer MEDICARE, OTHER, SELFPAY ==
[2025-09-24 11:52] LABS: Anion Gap 12 (5-15); BUN 22 mg/dL (4-19); BUN/Creat Ratio 16.3 RATIO (10-20); Calcium,Total 9.2 mg/dL (7.6-11.0); Carbon Dioxide 24.6 mmol/L (21.0-32.0); Chloride 102 mmol/L (98-108); Glucose 102 mg/dL (70-99); Potassium 4.0 mmol/L (3.3-5.1)
== END 2025-09-24 18:00 | disposition home or self-care (01) ==
LOC: LAB 08:26
PROVIDERS: PCP Family Medicine; Referring Provider Family Medicine; Visit Provider Family Medicine
DX: G25.81 Restless legs syndrome (principal); M79.89 Other specified soft tissue disorders
CPT/HCPCS: 36415; 80048